=== PATIENT | female | born 1995 ===

== ENCOUNTER 2024-03-29 21:14 | Outpatient (REF) | payer BC, SELFPAY ==
[2024-04-05 13:11] LABS: Age Gdln ACOG Testing Note (.); IGP, rfx Aptima HPV ASCU Note (.)
== END 2024-03-29 21:15 | disposition home or self-care (01) ==
LOC: LAB 21:14
PROVIDERS: Visit Provider Obstetrics & Gynecology
DX: Z01.419 Encounter for gynecological examination (general) (routine) without abnormal findings (principal)
CPT/HCPCS: 88175

== ENCOUNTER 2025-04-18 19:33 | Outpatient (REF) | payer BC, SELFPAY ==
--- OUTSIDE RECORDS SUMMARY | 2025-04-18 19:38 | XMS_ITS | CCD ---
Author Organization [facility] Care Team Providers Care Vault Custodian Name Role Phone BRYCE SWARTZ Attending Unavailab le Unavailable Primary Care Provider UnavailFAUSTO Smith Attending Unavailab le EL DAVIS Attending Unavailable Unavailable Primary Care Provider UnavailBRYCE Lama Admitting Unavailable BRYCE CAMARILLO Attending Unavailable BRYCE CAMARILLO Referring Unavailable No, Physician Primary Care Provider Unavailabl e NO, PHYSICIAN Primary Care Unavailable SOMASUNDARAM, SHIVKAMINI Attending Unavail able SOMASUNDPETERM, SHIVKAMINI Admitting Unavail able NO, PHYSICIAN Primary Care Unavailable CARLOS ORELLANA Attending Unavailable SOMASUNDARAM, SHIVKAMINI Admitting Unavail able NO, PHYSICIAN Primary Care Unavailable VAISHALI TURNER II Attending Brenda vailable VAISHALI TURNER II Referring Brenda vailable NO, PHYSICIAN Primary Care Unavailable SOMASUNDARAM, SHIVKAMINI Attending Unavail able NO, PHYSICIAN Primary Care Unavailable SOMASUNDARAM, SHIVKAMINI Attending Unavail able NO, PHYSICIAN Primary Care Unavailable SOMASUNDARAM, SHIVKAMINI Attending Unavail able NO, PHYSICIAN Primary Care Unavailable SOMASUNDARAM, SHIVKAMINI Attending Unavail able NO, PHYSICIAN Primary Care Unavailable NO, PHYSICIAN Primary Care Unavailable AMY GUAMAN Attending Unavailable SOMASUNDARAM, SHIVKAMINI Attending Unavail able NO, PHYSICIAN Primary Care Unavailable ANASTASIA ADAME Attending Unavailable NO, PHYSICIAN Primary Care Unavailable MIRYAM GIRALDO Attending Unavailable NO, PHYSICIAN Primary Care Unavailable PORTIA GOLDEN Primary Care Physician [phone] NONE, XXXX Primary Care Physician Unavailab BEBETO Medina Primary Care Physician Unavailable Primary Care Provider Unavailmilton e Pepe Alegria Admitting Unavailable Pepe Alegria Attending Unavailable Pepe Alegria Attending Unavailable Pepe Alegria Attending Unavailable Pepe Alegria Attending Unavailable Pepe Alegria Admitting Unavailable Pao Macedo Attending Unavailable Pao Macedo Admitting Unavailable Pao Macedo Admitting Unavailable Pao Macedo Attending Unavailable Pao Macedo Referring Unavailable MIKY DELGADO Attending Unavailable PEPPER EAST Attending Unavailable MIKY DELGADO Attending Unavailable MIKY DELGADO Attending Unavailable MIKY DELGADO Attending Unavailable DO Jung Sandoval Attending Unavailable MAXI CARTY Attending Unav ailable MAXI CARTY Admitting Unav ailable Inés Be Attending Unavailable MAXI CARTY Attending Unav ailable Pao Macedo Attending Unavailable Fausto Rivera Attending UnavailJung Leonardo Attending Unavailable Lc Edmonds CNP Unavailable Bebeto Carty APRN Primary Care Provider Pao Macedo Attending Unavailable BEBETO CARTY Admitting Unavailmilton e BEBETO CARTY Attending UnavailBEBETO Stinson Referring Unavailabl e BEBETO CARTY Referring Unavailmilton e BEBETO CARTY Admitting Unavailabl e BEBETO CARTY Attending Unavailmilton e BEBETO CARTY Admitting Unavailabl e BEBETO CARTY Attending Unavailmilton e BEBETO CARTY Admitting Unavailmilton e BEBETO CARTY Attending UnavailAntony Herrera Attending Unavailable Pepe Alegria Attending Unavailable Pao Macedo Attending Unavailable BEBETO CARTY Attending Unavailabl e Pao Macedo Admitting Unavailable LuePao Attending Unavailable Pao Macedo MSamantha Referring Unavailable Kenn Tello Attending Unavailable PROVIDER, UNKNOWN Admitting Unavailable PROVIDER, UNKNOWN Attending Unavailable BEBETO CARTY Primary Care Unavailabl e Jung Sandoval Attending Unavailable Lue, Pao MSamantha Admitting Unavailable Lue, Poa M. Referring Unavailable Lue, Pao MSamantha Attending Unavailable LuePao MSamantha Attending Unavailable Lue Pao MSamantha Admitting Unavailable Lue, Poa M. Referring Unavailable Lue, Pao MSamantha Attending Unavailable Kenn Tello Attending Unavailable BEBETO CARTY Attending Unavailabl e Antony Singh Attending Unavailable Francisco, Antony Attending Unavailable Pepe Alegria Attending Unavailable Pao Macedo Attending Unavailable LC EDMONDS Attending Unavailable LC EDMONDS Admitting Unavailable LC EDMONDS Attending Unavailable BEBETO CARTY Attending Unavailabl e BEBETO CARTY Attending Unavailabl e BEBETO CARTY Attending Unavailabl e BEBETO CARTY Primary Care Unavailabl e [facility] Attending Unavailable [facility] Admitting Unavailable [facility] Admitting Unavailable BEBETO CARTY Primary Care Unavailabl e [facility], [facility] Attending Unavailable RUBENS PRINGLE Admitting Unavailable RUBENS PRINGLE Attending Unavailable BEBETO CARTY Primary Care Unavailabl e FAJARDO, STEVE Admitting Unavailable FAJARDO, STEVE Attending Unavailable BEBETO CARTY Primary Care Unavailabl e BEBETO CARTY Primary Care Unavailabl e [facility]ICK, [facility] Referring Unavailable BEBETO CARTY Primary Care Unavailabl e [facility], [facility] Referring Unavailable AMANDA ALVARADO Referring Unavailable BEBETO CARTY Primary Care Unavailabl e BEBETO CARTY Primary Care Unavailabl e [facility]ICK, [facility] Attending Unavailable MOISE DIAS Referring Unavailable BEBETO CARTY Primary Care Unavailabl e BEBETO CARTY Primary Care Unavailabl e [facility] CASTANON Attending Unavailable BEBETO CARTY Primary Care Unavailabl e BOLA COOLEY Attending Unavailable BEBETO CARTY Primary Care Unavailabl e BEBETO CARTY Primary Care Unavailabl e FOREIGN, [facility] Referring Unavailable BOLA COOLEY Attending Unavailable BEBETO CARTY Primary Care Unavailabl e BEBETO CARTY Primary Care Unavailabl e BEBETO CARTY Primary Care Unavailabl e Allergies Allergy Classification Reported Allergen(s) Allergy Type Date of Onset Reaction(s) Facility Latex (2 sources) Latex Substance Allergy 6 [facility], [facility] Penicillins (antibiotic) (2 sources) Penicillins Drug Allergy 6 Hives, Shortness Of Breath [facility] (20 sources) Latex; Translations: [LATEX] Propensity to adverse reactions to drug 6 Rash, Hives, Weal (disorder) [place], [place] (13 sources) Penicillins; Translations: [PENICILLINS] Propensity to adverse reactions to drug 6 Shortness Of Breath [place], [place] (9 sources) Penicillins Propensity to adverse reactions to drug 6 Hives, Shortness Of Breath [facility] (20 sources) Propolis; Translations: [PROPOLIS (BEE GLUE)] Drug Allergy 2 Itching [facility] Repository (20 sources) Penicillin; Translations: [penicillin] Drug Allergy Weal (disorder) [facility] [place] (1 source) Penicillins Propensity to adverse reactions to drug 6 Hives, Shortness Of Breath [facility] (13 sources) Latex Propensity to adverse reactions 0 Itching, Hives, Rash [facility] Healthcare Work Phone: (13 sources) Penicillins Drug Intolerance 0 Anaphylaxis, Hives, Itching, Rash, Shortness of breath, Swelling [facility] (9 sources) Propolis Drug Allergy 2 Itching [facility] (13 sources) Wound Dressing Adhesive Propensity to adverse reactions 4 Itching [facility] (20 sources) Penicillins Drug Intolerance 5 Hives [facility] (1 source) Adhesive agent; Translations: [ADHESIVE] Propensity to adverse reactions to drug (disorder) 5 [facility] Repository (1 source) Chlorhexidine; Translations: [CHLORHEXIDINE] Drug Allergy 5 [facility] Repository (1 source) Vancomycin; Translations: [VANCOMYCIN] Drug Allergy 5 [facility] Repository Medications Current Medications Medication Drug Class(es) Dates Sig (Normalized) Sig (Original) acetaminophen 325 mg / HYDROcodone bitartrate 5 mg oral tablet (6 sources) Opioid Agonist Start: 09-05-2024 [place] 325 mg-5 mg oral tablet 1 tab(s), Oral, q6hr for pain, 5 tab(s), Refill(s) 0, severe pain, [facility], 154, cm, 08/31/24 7:10:00 EST, Height/Length Dosing, 58, kg, 08/31/24 7:10:00 EST, Weight Dosing Start Date: 09/05/24 Status: Ordered Quantity: 5.0 Unit: tab(s) Repeat number: 1 Start: 07-24-2020 End: 07-24-2020 HYDROcodone-acetaminophen (N ORCO) 5-325 MG per tablet Start: 04-16-2019 End: 04-16-2019 HYDROcodone-acetaminophen (N ORCO) 5-325 MG per tablet 2 tablet acetaminophen 325 mg / oxyCODONE hydrochloride 5 mg oral tablet (9 sources) Opioid Agonist Start: 03-23-2025 Percocet 5 mg- 325 mg oral tablet 1 tab(s), Oral, BID, 60 tab(s), Refill(s) 0, [facility], 165, cm, 03/23/25 14:01:00 EDT, Height/Length Dosing, 54.8, kg, 03/23/25 14:01:00 EDT, Weight Dosing Start Date: 03/23/25 Status: Ordered Quantity: 60.0 Unit: tab(s) Repeat number: 1 Indications: Neuromuscular dysfunction of bladder, unspecified; Start: 02-21-2025 Percocet 5 mg- 325 mg oral tablet 1 tab(s), Oral, BID, 60 tab(s), Refill(s) 0, [facility], 165, cm, 01/31/25 11:07:00 EDT, Height/Length Dosing, 53.8, kg, 01/31/25 11:07:00 EDT, Weight Dosing Start Date: 02/21/25 Status: Ordered Quantity: 60.0 Unit: tab(s) Repeat number: 1 Indications: Neuromuscular dysfunction of bladder, unspecified; Start: 01-31-2025 Percocet 5 mg- 325 mg oral tablet 1 tab(s), Oral, q6hr, 40 tab(s), Refill(s) 0, [facility], 165, cm, 01/31/25 11:07:00 EDT, Height/Length Dosing, 53.8, kg, 01/31/25 11:07:00 EDT, Weight Dosing Start Date: 01/31/25 Status: Ordered Quantity: 40.0 Unit: tab(s) Repeat number: 1 Indications: Neuromuscular dysfunction of bladder, unspecified; Start: 12-26-2024 Percocet 5 mg- 325 mg oral tablet 1 tab(s), Oral, q6hr, 40 tab(s), Refill(s) 0, [facility], 165, cm, 12/26/24 11:23:00 EDT, Height/Length Dosing, 51.6, kg, 12/26/24 11:23:00 EDT, Weight Dosing Start Date: 12/26/24 Status: Ordered Quantity: 40.0 Unit: tab(s) Repeat number: 1 Indications: Neuromuscular dysfunction of bladder, unspecified; Start: 09-22-2024 End: 11-02-2024 take 1 tablet by mouth three times daily oxyCODONE-acetaminophen (PERCOCET) 5-325 mg tablet Take 1 tablet by mouth three times a day. 09/22/2024 11/02/2024 Discontinued (Discontinued by Patient) Start: 05-13-2021 End: 06-03-2021 take 1 tablet by mouth every six hours as needed for pain oxyCODONE-acetaminophen (PERCOCET) 5-325 mg per tablet Indications: Pelvic pain in female Take 1 (one) tablet by mouth every 6 (six) hours as needed for post-op pain. . 20 tablet 0 05/13/2021 06/03/2021 Discontinued (Therapy completed) amitriptyline hydrochloride 25 mg oral tablet (20 sources) Tricyclic Antidepressant Start: 07-27-2024 take 1 tablet by mouth once daily amitriptyline 25 mg Tab 25 mg = 1 tab(s), Oral, Daily, # 90 tab(s), Refills(s) 3, Pharmacy: [facility], 158, cm, 07/27/24 15:15:00 EST, Height/Length Dosing, 56.2, kg, 07/27/24 15:15:00 EST, Weight Dosing Start Date: 07/27/24 Status: Ordered Quantity: 90.0 Unit: tab(s) Repeat number: 4 Start: 05-19-2024 take 1 tablet by jona th three times daily amitriptyline 10 mg Tab 10 mg = 1 tab(s), Oral, TID, # 90 tab(s), Refills(s) 1, Pharmacy: [facility] #[facility], 158, cm, 05/19/24 10:00:00 EST, Height/Length Dosing, 56.1, kg, 05/19/24 10:05:00 EST, Weight Dosing Start Date: 05/19/24 Status: Ordered Start: 03-05-2022 End: 11-02-2024 amitriptyline 25 mg Tab Refi lls(s) 0 Start Date: 10/26/22 Status: Ordered Start: 11-20-2021 take 1 tablet by jona th once daily at bedtime amitriptyline 10 mg Tab 10 mg = 1 tab(s), Oral, Once a day (at bedtime), # 30 tab(s), Refills(s) 11, Pharmacy: [facility]/pharmacy #[id number], 158, cm, 11/18/21 15:54:00 EDT, Height/Length Dosing, 55.3, kg, 11/18/21 15:54:00 EDT, Weight Dosing Start Date: 11/20/21 Status: Ordered Start: 04-04-2021 End: 08-02-2021 take 1 tablet by mouth once daily at bedtime amitriptyline 10 mg Tab 10 mg = 1 tab(s), Oral, Once a day (at bedtime), # 30 tab(s), Refills(s) 11, Pharmacy: [facility]/pharmacy #[id number], 158, cm, 11/18/21 15:54:00 EDT, Height/Length Dosing, 55.3, kg, 11/18/21 15:54:00 EDT, Weight Dosing Start Date: 11/20/21 Status: Ordered azithromycin 500 mg oral tablet (16 sources) Macrolide Antimicrobial Start: 06-06-2024 End: 06-11-2024 take 1 tablet by mouth once daily Zithromax 500 mg oral tablet 500 mg = 1 tab(s), Oral, Daily, X 5 day(s), # 5 tab(s), Refills(s) 0, Pharmacy: [facility] #[facility], 158, cm, 06/06/24 18:17:00 EST, Height/Length Dosing, 56.1, kg, 06/06/24 18:17:00 EST, Weight Dosing Start Date: 06/06/24 Stop Date: 06/11/24 Status: Ordered Start: 2024 End: 03-29-2024 take 1 tablet by mouth once daily azithromycin (Zithromax) 500 MG tablet Indications: Vaginal discharge , Bacterial infection due to mycoplasma Day 1: Take 2 tablets PO onetime dose; Day 2,3,4: Take 1 tablet daily 5 tablet 03/08/2024 03/29/2024 Discontinued (Other) Start: 08-23-2023 azithromycin 2 50 mg Tab 250 mg, Oral, As Directed, # 10 tab(s), Refills(s) 0, Pharmacy: [facility] #[facility], 152, cm, 08/23/23 16:27:00 EST, Height/Length Dosing, 54, kg, 08/23/23 16:27:00 EST, Weight Dosing Start Date: 08/23/23 Status: Ordered Start: 08-12-2023 End: 08-17-2023 Zithromax Z-Douglas 250 mg oral tablet = 1 packet(s), Oral, As Directed, as directed on package labeling, X 5 day(s), # 6 tab(s), Refills(s) 0, Pharmacy: [facility] #[facility], 152, cm, 08/12/23 17:35:00 EST, Height/Length Dosing, 53.4, kg, 08/12/23 17:35:00 EST, Weight Dosing Start Date: 08/12/23 Stop Date: 08/17/23 Status: Ordered End: 04-07-2019 take 1 tablet by mouth once daily azithromycin (ZITHROMAX) 250 MG tablet Take 250 mg by mouth daily 0 04/07/2019 Discontinued (LIST CLEANUP) bacitracin zinc 0.5 unt/mg topical ointment (1 source) Start: 01-26-2025 End: 01-31-2025 bacitracin zinc 500 unit/gram ointment Apply to affected area two times a day for 5 days. 28.4 g 01/26/2025 01/31/2025 Active baclofen suppository 10 mg (CPD) (16 sources) Start: 11-07-2024 End: 01-06-2025 baclofen suppository 10 mg (CPD) Indications: High-tone pelvic floor dysfunction in female Use 1 suppository vaginally two times a day as needed. Unwrap and insert one suppository as directed. 30 suppository 3 11/07/2024 01/06/2025 Active benzonatate 100 mg oral capsule (2 sources) Non-narcotic Antitussive Start: 06-06-2024 End: 06-13-2024 take 1 capsule by mouth three times daily Tessalon 100 mg Cap 100 mg = 1 cap(s), Oral, TID, X 7 day(s), # 21 cap(s), Refills(s) 0, Pharmacy: [facility] #[facility], 158, cm, 06/06/24 18:17:00 EST, Height/Length Dosing, 56.1, kg, 06/06/24 18:17:00 EST, Weight Dosing Start Date: 06/06/24 Stop Date: 06/13/24 Status: Ordered brompheniramine maleate 0.4 mg/ml / dextromethorphan hydrobromide 2 mg/ml / pseudoephedrine hydrochloride 6 mg/ml oral solution (1 source) alpha-Adrenergic Agonist, Uncompetitive I-eagxab-N-aspartat e Receptor Antagonist, Sigma-1 Agonist Start: 03-17-2024 End: 03-22-2024 take 5 mL by mouth every six hours brompheniramine/ dextromethorphan /PSE 2 mg-10 mg-30 mg/5 mL oral syrup 5 mL, Oral, q6hr for cold symptoms for 5 day(s), 100 mL, Refill(s) 0, [facility], 55.5, cm, 03/17/24 17:21:00 EDT, Height/Length Dosing, 158, kg, 03/17/24 17:21:00 EDT, Weight Dosing Start Date: 03/17/24 Stop Date: 03/22/24 Status: Ordered Brompheniramine / Pseudoephedrine (2 sources) alpha-Adrenergic Agonist Start: 09-19-2021 take 10 mL by mouth four times daily Bromfed DM oral syrup 10 mL, Oral, QID for cold symptoms, 200 mL, Refill(s) 0, [facility]/pharmacy #[id number], 158, cm, 09/19/21 14:40:00 EDT, Height/Length Dosing, 51.9, kg, 09/19/21 14:40:00 EDT, Weight Dosing Start Date: 09/19/21 Status: Ordered calcium chloride 0.0014 meq/ml / potassium chloride 0.004 meq/ml / sodium chloride 0.103 meq/ml / sodium lactate 0.028 meq/ml injectable solution (1 source) Start: 07-24-2020 lactated ringers infusion cephalexin 500 mg oral capsule (3 sources) Cephalosporin Antibacterial Start: 12-29-2024 End: 01-03-2025 take 1 capsule by mouth twice daily cephALEXin (KEFLEX) 500 mg capsule Take 1 capsule by mouth two times a day for 5 days. 10 capsule 12/29/2024 01/03/2025 Active Start: 04-07-2019 End: 04-14-2019 take 1 capsule by mouth twice daily cephALEXin (KEFLEX) 500 MG capsule Take 1 capsule by mouth 2 times daily for 7 days 14 capsule 0 04/07/2019 04/14/2019 Active cimetidine 300 mg oral tablet (17 sources) Histamine-2 Receptor Antagonist Start: 01-08-2022 take 1 tablet by mouth twice daily cimetidine 300 mg oral tablet 300 mg = 1 tab(s), Oral, BID, # 60 tab(s), Refills(s) 0, Pharmacy: [facility]/pharmacy #[id number], 157, cm, 01/08/22 15:33:00 EDT, Height/Length Dosing, 54.5, kg, 01/08/22 15:33:00 EDT, Weight Dosing Start Date: 01/08/22 Status: Ordered ciprofloxacin 500 mg oral tablet (14 sources) Quinolone Antimicrobial Start: 01-27-2025 take 1 tablet by mouth twice daily Cipro 500 mg Tab 500 mg = 1 tab(s), Oral, BID, # 14 tab(s), Refills(s) 0, Pharmacy: [facility] #[facility], 165, cm, 01/27/25 11:11:00 EDT, Height/Length Dosing, 51, kg, 01/27/25 11:11:00 EDT, Weight Dosing Start Date: 01/27/25 Status: Ordered Quantity: 14.0 Unit: tab(s) Repeat number: 1 Start: 12-03-2024 End: 01-11-2025 take 1 tablet by mouth every twelve hours ciprofloxacin HCl (CIPRO) 500 mg tablet Take 1 tablet by mouth every 12 hours. 12/03/2024 01/11/2025 Discontinued Start: 09-03-2023 End: 09-13-2023 take 1 tablet by mouth every twelve hours ciprofloxacin 500 mg Tab 500 mg = 1 tab(s), Oral, q12hr, X 10 day(s), # 20 tab(s), Refills(s) 0, Pharmacy: [facility] #[facility], 152, cm, 09/03/23 16:04:00 EST, Height/Length Dosing, 53.3, kg, 09/03/23 16:13:00 EST, Weight Dosing Start Date: 09/03/23 Stop Date: 09/13/23 Status: Ordered clindamycin 300 mg oral capsule (1 source) Lincosamide Antibacterial Start: 02-23-2024 take 1 capsule by mouth twice daily clindamycin 300 mg oral cap 300 mg = 1 cap(s), Oral, BID, # 20 cap(s), Refills(s) 0, Pharmacy: [facility] #[facility], 155, cm, 02/23/24 10:10:00 EDT, Height/Length Dosing, 55.7, kg, 02/23/24 10:10:00 EDT, Weight Dosing Start Date: 02/23/24 Status: Ordered diazePAM 10 mg oral tablet (7 sources) Benzodiazepine Start: 09-28-2022 Valium 10 mg Tab 10 mg = 1 tab(s), Oral, Once, PRN for anxiety, take one hour prior to procedure., # 1 tab(s), Refills(s) 0, Pharmacy: [facility], 157, cm, 09/28/22 15:05:00 EDT, Height/Length Dosing, 54.5, kg, 09/28/22 15:05:00 EDT, Weight Dosing Start Date: 09/28/22 Status: Ordered Start: 06-01-2022 End: 06-15-2022 Valium 5 mg Tab 5 mg = 1 tab (s), Vaginal, Daily, 1 vaginal suppository daily for 14 days, X 14 day(s), # 14 tab(s), Refills(s) 0, Pharmacy: [facility], 157, cm, 04/15/22 9:05:00 EDT, Height/Length Dosing, 54.5, kg, 04/15/22 9:05:00 EDT, Weight Dosing Start Date: 06/01/22 Stop Date: 06/15/22 Status: Ordered Start: 04-15-2022 End: 04-29-2022 Valium 5 mg Tab 5 mg = 1 tab (s), Vaginal, Daily, Insert vaginal suppository daily, X 14 day(s), # 14 tab(s), Refills(s) 0, Pharmacy: [facility]/pharmacy #[id number], 157, cm, 04/15/22 9:05:00 EDT, Height/Length Dosing, 54.5, kg, 04/15/22 9:05:00 EDT, Weight Dosing Start Date: 04/15/22 Stop Date: 04/29/22 Status: Ordered End: 11-07-2024 diazepam (VALIUM ORAL) Take by mouth. 11/07/2024 Discontinued diazepam (VALIUM ORAL) Take by mouth. Active dicyclomine hydrochloride 10 mg oral capsule (2 sources) Anticholinergic Start: 09-03-2023 take 1 capsule by mouth four times daily Bentyl 10 mg Cap 10 mg = 1 cap(s), Oral, QID, # 30 cap(s), Refills(s) 1, Pharmacy: [facility], 152, cm, 09/03/23 16:04:00 EST, Height/Length Dosing, 53.3, kg, 09/03/23 16:13:00 EST, Weight Dosing Start Date: 09/03/23 Status: Ordered 1 ml diphenhydrAMINE hydrochloride 50 mg/ml cartridge (1 source) Histamine-1 Receptor Antagonist Start: 07-24-2020 End: 07-24-2020 diphenhydrAMINE (BENADRYL) injection 12.5 mg doxycycline hyclate 100 mg oral capsule (4 sources) Tetracycline-class Drug Start: 03-08-2024 End: 03-15-2024 doxycycline (Vibramycin) 100 MG capsule Indications: Vaginal discharge , Bacterial infection due to mycoplasma Take 1 capsule (100 mg) by mouth in the morning and 1 capsule (100 mg) before bedtime. Do all this for 7 days. Take with at least 8 ounces (large glass) of water, do not lie down for 30 minutes after. 14 capsule 03/08/2024 03/15/2024 Active Start: 06-02-2022 End: 06-09-2022 take 1 capsule by mouth twice daily doxycycline hyclate 100 mg Cap 100 mg = 1 cap(s), Oral, BID, X 7 day(s), # 14 cap(s), Refills(s) 0, Pharmacy: [facility]/pharmacy #[id number], 157, cm, 06/02/22 11:00:00 EST, Height/Length Dosing, 54.5, kg, 06/02/22 11:00:00 EST, Weight Dosing Start Date: 06/02/22 Stop Date: 06/09/22 Status: Ordered DULoxetine 30 mg delayed release oral capsule (20 sources) Serotonin and Norepinephrine Reuptake Inhibitor Start: 12-07-2024 End: 12-07-2025 take 1 capsule by mouth twice daily duloxetine 30 mg oral delayed release capsule 30 mg = 1 cap(s), Oral, BID, # 60 cap(s), Refills(s) 0, Pharmacy: [facility], 165, cm, 12/26/24 11:23:00 EDT, Height/Length Dosing, 51.6, kg, 12/26/24 11:23:00 EDT, Weight Dosing Start Date: 12/26/24 Status: Ordered Quantity: 60.0 Unit: cap(s) Repeat number: 1 Indications: Neuromuscular dysfunction of bladder, unspecified; Start: 11-02-2024 End: 12-07-2024 DULoxetine (CYMBALTA) 30 mg capsule Take 30mg once daily for 7 days and increase to 30mg twice a day after 60 capsule 2 11/02/2024 12/07/2024 Discontinued 2 ml fentaNYL 0.05 mg/ml injection (1 source) Opioid Agonist Start: 07-24-2020 fentaNYL (SUBLIMAZE) injection 25 mcg fluconazole 150 mg oral tablet (20 sources) Azole Antifungal Start: 09-18-2024 take 1 tablet by mouth once fluconazole 150 mg Tab 150 mg = 1 tab(s), Oral, Once, # 1 tab(s), Refills(s) 0, Pharmacy: [facility], 154, cm, 09/18/24 14:12:00 EDT, Height/Length Dosing, 56, kg, 09/18/24 14:12:00 EDT, Weight Dosing Start Date: 09/18/24 Status: Ordered Quantity: 1.0 Unit: tab(s) Repeat number: 1 Indication: Acute candidiasis of vulva and vagina Start: 06-27-2024 End: 12-07-2024 DIFLUCAN 150 mg tablet Take 150 mg by mouth. 150 mg = 1 tab(s), Oral, q72hr, # 4 tab(s), Refills(s) 5, Pharmacy: [facility], 154, cm, 10/19/24 12:48:00 EDT, Height/Length Dosing, 56.1, kg, 10/19/24 12:48:00 EDT, Weight Dosing 06/27/2024 12/07/2024 Discontinued (Discontinued by Patient) Start: 06-27-2024 take 1 tablet by mouth once Di flucan 150 mg Tab See Instructions, 1 tab Oral Once If symptoms persist may repeat dose 72 hours after intial, # 2 tab(s), Refills(s) 0, Pharmacy: [facility], 158, cm, 06/27/24 10:04:00 EST, Height/Length Dosing, 56.2, kg, 06/27/24 10:03:00 EST, Weight Dosing Start Date: 06/27/24 Status: Ordered Start: 02-23-2024 Diflucan 150 m g Tab 150 mg = 1 tab(s), Oral, q7day, # 4 tab(s), Refills(s) 1, Pharmacy: [facility], 155, cm, 02/23/24 10:10:00 EDT, Height/Length Dosing, 55.7, kg, 02/23/24 10:10:00 EDT, Weight Dosing Start Date: 02/23/24 Status: Ordered Start: 11-04-2023 take 1 tablet by jona once daily Diflucan 150 mg Tab 150 mg = 1 tab(s), Oral, Daily, # 7 tab(s), Refills(s) 1, Pharmacy: [facility], 155, cm, 11/04/23 12:55:00 EDT, Height/Length Dosing, 55.4, kg, 11/04/23 12:55:00 EDT, Weight Dosing Start Date: 11/04/23 Status: Ordered fluticasone propionate 0.05 mg/actuat metered dose nasal spray (3 sources) Corticosteroid Start: 03-17-2024 End: 03-24-2024 take 1 spray(s) nasal route twice daily Flonase 0.05 mg/inh [place] 1 spray(s), Nasal, BID for 7 day(s), 16 gm, Refill(s) 0, each nostril, [facility], 55.5, cm, 03/17/24 17:21:00 EDT, Height/Length Dosing, 158, kg, 03/17/24 17:21:00 EDT, Weight Dosing Start Date: 03/17/24 Stop Date: 03/24/24 Status: Ordered Start: 09-19-2021 fluticasone to pical 0.05% cream 1 sharon, Topical, BID, 30 gram, Refill(s) 0, [id number], 158, cm, 09/19/21 14:40:00 EDT, Height/Length Dosing, 51.9, kg, 09/19/21 14:40:00 EDT, Weight Dosing Start Date: 09/19/21 Status: Ordered gabapentin 300 mg oral capsule (20 sources) Anti-epileptic Agent Start: 03-05-2022 End: 10-01-2022 take 1 capsule by mouth twice daily gabapentin 300 mg Cap 300 mg = 1 cap(s), Oral, BID, X 30 day(s), # 60 cap(s), Refills(s) 6, Pharmacy: [facility]/pharmacy #[id number], 157, cm, 03/05/22 15:21:00 EDT, Height/Length Dosing, 54.5, kg, 03/05/22 15:21:00 EDT, Weight Dosing Start Date: 03/05/22 Stop Date: 10/01/22 Status: Ordered Start: 08-25-2021 take 2 capsules by m outh once daily gabapentin 300 mg Cap 600 mg = 2 cap(s), Oral, Daily, # 60 cap(s), Refills(s) 0 Start Date: 08/25/21 Status: Ordered Start: 02-17-2021 End: 06-03-2021 take 1 capsule by mouth every eight hours as needed for pain gabapentin (NEURONTIN) 100 MG capsule Indications: Pelvic pain in female Take one capsule by mouth every 8 hours as needed for pelvic pain. . 90 capsule 1 02/17/2021 06/03/2021 Discontinued (Therapy completed) 1 ml hydrALAZINE hydrochloride 20 mg/ml injection (1 source) Arteriolar Vasodilator Start: 07-24-2020 hydrALAZINE (APRESOLINE) injection 5 mg 1 ml HYDROmorphone hydrochloride 1 mg/ml cartridge (1 source) Opioid Agonist Start: 07-24-2020 HYDROmorphone (DILAUDID) injection 0.5 mg hydrOXYzine hydrochloride 25 mg oral tablet (20 sources) Antihistamine Start: 11-20-2021 take 1 tablet by mouth three times daily hydrOXYzine hydrochloride 25 mg Tab 25 mg = 1 tab(s), Oral, TID, # 90 tab(s), Refills(s) 11, Pharmacy: [facility]/pharmacy #[id number], 158, cm, 11/18/21 15:54:00 EDT, Height/Length Dosing, 55.3, kg, 11/18/21 15:54:00 EDT, Weight Dosing Start Date: 11/20/21 Status: Ordered Start: 08-12-2021 End: 12-10-2021 take 1 capsule by mouth once daily hydrOXYzine (VISTARIL) 25 MG capsule Indications: Interstitial cystitis TAKE 1 (ONE) CAPSULE (25 MG TOTAL) BY MOUTH NIGHTLY . 30 capsule 3 08/12/2021 12/10/2021 Active Start: 04-12-2021 take 1 mg by mouth f our times daily hydrOXYzine hydrochloride 25 mg Tab mg tab(s), Oral, QID, Refills(s) 0 Start Date: 04/12/21 Status: Ordered Start: 04-04-2021 End: 08-02-2021 take 1 capsule by mouth once daily hydrOXYzine (VISTARIL) 25 MG capsule Indications: Interstitial cystitis Take 1 (one) capsule (25 mg total) by mouth nightly . 30 capsule 3 04/04/2021 08/02/2021 Active medical marijuana (6 sources) medical marijuan a Inhale into the lungs as needed. 0 Active meloxicam 7.5 mg oral tablet (3 sources) Nonsteroidal Anti-inflammatory Drug take 1 tablet by mouth once daily meloxicam (MOBIC) 7.5 MG tablet Take 7.5 mg by mouth daily 0 Active 1 ml meperidine hydrochloride 50 mg/ml injection (1 source) Opioid Agonist Start: 07-24-19 meperidine (DEMEROL) injection 12.5 mg metroNIDAZOLE 500 mg oral tablet (12 sources) Nitroimidazole Antimicrobial Start: 08-31-19 End: 09-08-19 take 500 mg by mouth every twelve hours metronidazole 500 mg, Oral, q12hr, Refills(s) 0, Infection or prophylaxis for antibiotics Start Date: 09/05/24 Status: Ordered Repeat number: 1 Start: 08-31-2024 End: 09-30-2024 metroNIDAZOLE (Metrogel) 0.7 5 % vaginal gel Indications: Bacterial vaginosis Insert into the vagina 2 (two) times a week For 6 months. 140 g 5 08/31/2024 09/30/2024 Active Start: 11-08-2023 take 1 tablet by jona th every twelve hours Flagyl 500 mg Tab 500 mg = 1 tab(s), Oral, q12hr, # 14 tab(s), Refills(s) 1, Pharmacy: [facility] #37, 155, cm, 11/08/23 11:20:00 EDT, Height/Length Dosing, 56.2, kg, 11/08/23 11:20:00 EDT, Weight Dosing Start Date: 11/08/23 Status: Ordered Start: 09-03-2023 End: 09-13-2023 take 1 tablet by mouth every eight hours MetroNIDAZOLE 500 mg Tab 500 mg = 1 tab(s), Oral, q8hr, X 10 day(s), # 30 tab(s), Refills(s) 0, Pharmacy: [facility] #37, 152, cm, 09/03/23 16:04:00 EST, Height/Length Dosing, 53.3, kg, 09/03/23 16:13:00 EST, Weight Dosing Start Date: 09/03/23 Stop Date: 09/13/23 Status: Ordered 24 hr mirabegron 50 mg extended release oral tablet (6 sources) beta3-Adrenergic Agonist Start: 09-17-2024 End: 11-02-2024 take 1 tablet by mouth once daily Myrbetriq 50 mg oral tablet, extended release 50 mg = 1 tab(s), Oral, Daily, # 30 tab(s), Refills(s) 0, Pharmacy: [facility] #37, 154, cm, 09/17/24 16:55:00 EDT, Height/Length Dosing, 56.5, kg, 09/17/24 16:55:00 EDT, Weight Dosing Start Date: 09/17/24 Status: Ordered Quantity: 30.0 Unit: tab(s) Repeat number: 1 Start: 03-05-2022 take 1 tablet by jona th once daily Myrbetriq 25 mg oral tablet, extended release 25 mg = 1 tab(s), Oral, Daily, # 30 tab(s), Refills(s) 6, Pharmacy: [facility]/pharmacy #[id number], 157, cm, 03/05/22 15:21:00 EDT, Height/Length Dosing, 54.5, kg, 03/05/22 15:21:00 EDT, Weight Dosing Start Date: 03/05/22 Status: Ordered Start: 01-08-2022 take 1 tablet by jona th once daily Myrbetriq 25 mg oral tablet, extended release 25 mg = 1 tab(s), Oral, Daily, # 30 tab(s), Refills(s) 5, Pharmacy: [facility]/pharmacy #[id number], 157, cm, 01/08/22 15:33:00 EDT, Height/Length Dosing, 54.5, kg, 01/08/22 15:33:00 EDT, Weight Dosing Start Date: 01/08/22 Status: Ordered 30 ml morphine sulfate 1 mg/ml injection (1 source) Opioid Agonist Start: 07-24-2020 morphine (PF) injection 1 mg moxifloxacin 400 mg oral tablet (3 sources) Quinolone Antimicrobial Start: 03-17-2024 End: 03-24-2024 take 1 tablet by mouth once daily moxifloxacin 400 mg Tab 400 mg = 1 tab(s), Oral, Daily, X 7 day(s), # 7 tab(s), Refills(s) 0 Start Date: 03/17/24 Stop Date: 03/24/24 Status: Ordered Start: 03-08-2024 End: 03-15-2024 take 1 tablet by mouth once daily moxifloxacin (Avelox) 400 MG tablet Indications: Bacterial infection due to mycoplasma Take 1 tablet (400 mg) by mouth Daily for 7 days start medication AFTER completing course of Doxycycline & Azithromycin. 7 tablet 03/08/2024 03/15/2024 Active naproxen 500 mg oral tablet (1 source) Nonsteroidal Anti-inflammatory Drug Start: 11-16-2024 take 1 tablet by mouth twice daily as needed for pain naproxen 500 mg Tab 500 mg = 1 tab(s), Oral, BID, PRN Pain, # 30 tab(s), Refills(s) 0, Pharmacy: [facility] #37, 165, cm, 11/16/24 14:56:00 EDT, Height/Length Dosing, 57.1, kg, 11/16/24 14:56:00 EDT, Weight Dosing Start Date: 11/16/24 Status: Ordered Quantity: 30.0 Unit: tab(s) Repeat number: 1 nitrofurantoin, macrocrystals 50 mg oral capsule (1 source) Nitrofuran Antibacterial Start: 01-26-2025 End: 01-31-2025 take 1 capsule by mouth four times daily nitrofurantoin macrocrystal (MACRODANTIN) 50 mg capsule Take 1 capsule by mouth four times daily for 5 days. 20 capsule 01/26/2025 01/31/2025 Active nitrofurantoin, macrocrystals 25 mg / nitrofurantoin, monohydrate 75 mg oral capsule (16 sources) Nitrofuran Antibacterial Start: 12-21-2024 End: 12-28-2024 take 1 capsule by mouth twice daily nitrofurantoin monohydrate and macrocrystal (MACROBID) 100 mg capsule Take 1 capsule by mouth two times a day for 7 days. FOR 7 DAYS. 14 capsule 12/21/2024 12/28/2024 Active Start: 10-20-2024 End: 12-07-2024 take 1 capsule by mouth every twelve hours nitrofurantoin monohydrate and macrocrystal (MACROBID) 100 mg capsule Take 1 capsule by mouth every 12 hours. 11/02/2024 12/07/2024 Discontinued (Discontinued by Patient) Start: 10-19-2024 End: 10-27-2024 take 1 capsule by mouth twice daily Macrobid 100 mg Cap 100 mg = 1 cap(s), Oral, BID, X 7 day(s), # 14 cap(s), Refills(s) 0, Pharmacy: [facility] #37, 154, cm, 10/19/24 12:48:00 EDT, Height/Length Dosing, 56.1, kg, 10/19/24 12:48:00 EDT, Weight Dosing Start Date: 10/20/24 Stop Date: 10/27/24 Status: Ordered Quantity: 14.0 Unit: cap(s) Repeat number: 1 Indication: Urinary tract infection, site not specified Start: 04-05-2019 End: 04-10-2019 take 1 capsule by mouth twice daily nitrofurantoin, macrocrystal-monohydrate, (MACROBID) 100 MG capsule Take 1 capsule by mouth 2 times daily for 5 days 10 capsule 0 04/05/2019 04/07/2019 Discontinued (Therapy completed) Non-Formulary Medication (5 sources) Start: 08-30-2024 Non-Formulary Medication See Instructions Start Date: 08/30/24 Status: Ordered Repeat number: 1 Start: 08-30-2024 Non-Formulary Medication See Instructions Start Date: 08/30/24 Status: Ordered ondansetron 4 mg disintegrating oral tablet (8 sources) Serotonin-3 Receptor Antagonist Start: 07-24-2020 take 1 tablet by mouth every eight hours as needed for nausea ondansetron (ZOFRAN ODT) 4 MG disintegrating tablet Take 1 tablet by mouth every 8 hours as needed for Nausea or Vomiting 15 tablet 0 07/24/2020 Active Start: 07-24-2020 End: 07-24-2020 ondansetron (ZOFRAN) 4 MG/2M L injection Start: 07-24-2020 End: 07-24-2020 ondansetron (ZOFRAN) injecti on 4 mg Start: 04-07-2019 End: 07-18-2020 take 1 tablet by mouth every eight hours as needed for nausea ondansetron (ZOFRAN ODT) 4 MG disintegrating tablet Take 1 tablet by mouth every 8 hours as needed for Nausea or Vomiting 12 tablet 0 04/07/2019 07/18/2020 Discontinued (LIST CLEANUP) Start: 04-07-2019 End: 04-07-2019 ondansetron (ZOFRAN) injecti on 4 mg Start: 04-05-2019 End: 04-05-2019 ondansetron (ZOFRAN) injecti on 4 mg oxybutynin chloride 5 mg oral tablet (3 sources) Cholinergic Muscarinic Antagonist Start: 01-31-2025 take 1 tablet by mouth four times daily as needed oxybutynin 5 mg Tab 5 mg = 1 tab(s), Oral, QID, PRN for urinary discomfort, # 120 tab(s), Refills(s) 4, Pharmacy: [facility] #37, 165, cm, 01/31/25 11:07:00 EDT, Height/Length Dosing, 53.8, kg, 01/31/25 11:07:00 EDT, Weight Dosing Start Date: 01/31/25 Status: Ordered Quantity: 120.0 Unit: tab(s) Repeat number: 5 Indications: Other symptoms and signs involving the genitourinary system; pantoprazole 40 mg delayed release oral tablet (20 sources) Proton Pump Inhibitor Start: 10-09-2022 take 1 tablet by mouth once daily Pantoprazole [address] Tab 40 mg = 1 tab(s), Oral, Daily, # 90 tab(s), Refills(s) 1, Pharmacy: [facility] #37, 157, cm, 10/06/22 9:09:00 EDT, Height/Length Dosing, 54.5, kg, 09/28/22 15:05:00 EDT, Weight Dosing Start Date: 10/09/22 Status: Ordered Start: 03-24-2022 take 2 tablets by [facility] once daily Pantoprazole [address] Tab 40 mg = 2 tab(s), Oral, Daily, call office to make appointment, # 60 tab(s), Refills(s) 0, Pharmacy: [facility]/pharmacy #[id number], 157, cm, 06/15/22 13:18:00 EST, Height/Length Dosing, 54.5, kg, 06/15/22 13:18:00 EST, Weight Dosing Start Date: 09/21/22 Status: Ordered Start: 02-25-2022 take 2 tablets by [facility] once daily pantoprazole 20 mg Oral EC Tab 40 mg = 2 tab(s), Oral, Daily, # 60 tab(s), Refills(s) 0, Pharmacy: [facility]/pharmacy #[id number], 157, cm, 01/09/22 15:54:00 EDT, Height/Length Dosing, 54.5, kg, 01/09/22 15:54:00 EDT, Weight Dosing Start Date: 02/25/22 Status: Ordered Start: 01-09-2022 take 2 tablets by [facility] once daily pantoprazole 20 mg Oral EC Tab 40 mg = 2 tab(s), Oral, Daily, # 60 tab(s), Refills(s) 0, Pharmacy: [facility]/pharmacy #[id number], 157, cm, 01/09/22 15:54:00 EDT, Height/Length Dosing, 54.5, kg, 01/09/22 15:54:00 EDT, Weight Dosing Start Date: 01/09/22 Status: Ordered polyethylene glycol 3350 05919 mg powder for oral solution (4 sources) Osmotic Laxative Start: 11-16-2024 take 17 g by mouth once daily as needed for constipation Miralax 3350 17 gram packet 17 gm, Oral, Daily, PRN Constipation, # 30 EA, Refills(s) 0, Pharmacy: [facility] #37, 165, cm, 11/16/24 14:56:00 EDT, Height/Length Dosing, 57.1, kg, 11/16/24 14:56:00 EDT, Weight Dosing Start Date: 11/16/24 Status: Ordered Quantity: 30.0 Unit: EA Repeat number: 1 promethazine hydrochloride 25 mg oral tablet (3 sources) Phenothiazine Start: 09-03-2023 take 1 tablet by mouth three times daily promethazine 25 mg Tab 25 mg = 1 tab(s), Oral, TID, # 30 tab(s), Refills(s) 1, Pharmacy: [facility] #37, 152, cm, 09/03/23 16:04:00 EST, Height/Length Dosing, 53.3, kg, 09/03/23 16:13:00 EST, Weight Dosing Start Date: 09/03/23 Status: Ordered Start: 07-24-2020 End: 07-24-2020 promethazine (PHENERGAN) inj ection 6.25 mg 1000 ml sodium chloride 9 mg /ml injection (6 sources) Start: 07-24-2020 0.9 % sodium c hloride infusion Start: 07-24-2020 sodium chlorid e flush 0.9 % injection 10 mL Start: 04-07-2019 End: 04-07-2019 0.9 % sodium chloride bolus Start: 04-05-2019 End: 04-05-2019 0.9 % NaCl bolus solifenacin succinate 5 mg oral tablet (9 sources) Cholinergic Muscarinic Antagonist Start: 06-15-2022 take 1 tablet by mouth twice daily Vesicare 5 mg Tab 5 mg = 1 tab(s), Oral, BID, # 60 tab(s), Refills(s) 11, Pharmacy: [facility]/pharmacy #[id number], 157, cm, 06/15/22 13:18:00 EST, Height/Length Dosing, 54.5, kg, 06/15/22 13:18:00 EST, Weight Dosing Start Date: 06/15/22 Status: Ordered Start: 04-15-2022 take 1 tablet by jona th once daily Vesicare 5 mg Tab 5 mg = 1 tab(s), Oral, Daily, # 30 tab(s), Refills(s) 6, Pharmacy: [facility]/pharmacy #[id number], 157, cm, 04/15/22 9:05:00 EDT, Height/Length Dosing, 54.5, kg, 04/15/22 9:05:00 EDT, Weight Dosing Start Date: 04/15/22 Status: Ordered terconazole 4 mg/ml vaginal cream (3 sources) Azole Antifungal Start: 11-08-2023 End: 11-22-2023 terconazole 0.4% Vag Crm 1 sharon, Vaginal, Once a day (at bedtime) for 7 day(s), 45 gram, Refill(s) 1, [facility] #37, 155, cm, 11/08/23 11:20:00 EDT, Height/Length Dosing, 56.2, kg, 11/08/23 11:20:00 EDT, Weight Dosing Start Date: 11/08/23 Stop Date: 11/22/23 Status: Ordered tiZANidine 4 mg oral tablet (14 sources) Central alpha-2 Adrenergic Agonist Start: 10-14-2021 End: 01-13-2022 take 1 tablet by mouth three times daily as needed tiZANidine (ZANAFLEX) 4 MG tablet Indications: Pelvic pain in female TAKE 1 TABLET BY MOUTH THREE TIMES A DAY NEEDED 90 tablet 1 01/13/2022 Active Start: 02-17-2021 End: 03-13-2021 take 1 tablet by mouth three times daily as needed tiZANidine (ZANAFLEX) 4 MG tablet Indications: Pelvic pain in female TAKE 1 TABLET BY MOUTH THREE TIMES A DAY NEEDED 90 tablet 1 03/13/2021 Active 24 hr tolterodine tartrate 4 mg extended release oral capsule (14 sources) Cholinergic Muscarinic Antagonist Start: 12-26-2024 take 1 capsule by mouth once daily tolterodine 4 mg Cap-ER 4 mg = 1 cap(s), Oral, Daily, # 30 cap(s), Refills(s) 0, Pharmacy: [facility] #37, 165, cm, 12/26/24 11:23:00 EDT, Height/Length Dosing, 51.6, kg, 12/26/24 11:23:00 EDT, Weight Dosing Start Date: 12/26/24 Status: Ordered Quantity: 30.0 Unit: cap(s) Repeat number: 1 Indications: Neuromuscular dysfunction of bladder, unspecified; Start: 07-27-2024 take 1 capsule by mo [facility] every twenty-four hours tolterodine LA (Detrol LA) 2 MG 24 hr capsule Take 2 mg by mouth 07/27/2024 Active Start: 10-26-2022 End: 11-02-2024 take 1 capsule by mouth once daily tolterodine 2 mg Ca p-ER 2 mg = 1 cap(s), Oral, Daily, # 90 cap(s), Refills(s) 3, Pharmacy: [facility] #37, 158, cm, 07/27/24 15:15:00 EST, Height/Length Dosing, 56.2, kg, 07/27/24 15:15:00 EST, Weight Dosing Start Date: 07/27/24 Status: Ordered 24 hr trospium chloride 60 mg extended release oral capsule (1 source) Cholinergic Muscarinic Antagonist Start: 11-15-2020 take 1 capsule by mouth once daily in the morning trospium 60 mg oral capsule, extended release 60 mg = 1 cap(s), Oral, qAM, # 30 cap(s), Refills(s) 0 Start Date: 11/15/20 Status: Ordered UNABLE TO FIND (12 sources) UNABLE TO FIND Medical Marijuana Card . 0 Active Zofran ODT 4 mg Tab-Dis (2 sources) Start: 11-16-2024 take 1 tablet by mouth every eight hours as needed for nausea Zofran ODT 4 mg Tab-Dis 4 mg = 1 tab(s), Oral, q8hr, PRN Nausea/Vomiting, # 12 tab(s), Refills(s) 0, Pharmacy: [facility] #37, 165, cm, 11/16/24 14:56:00 EDT, Height/Length Dosing, 57.1, kg, 11/16/24 14:56:00 EDT, Weight Dosing Start Date: 11/16/24 Status: Ordered Quantity: 12.0 Unit: tab(s) Repeat number: 1 Start: 04-13-2023 take 1 tablet by [facility] every eight hours Zofran ODT 4 mg Tab-Dis 4 mg = 1 tab(s), Oral, q8hr, # 12 tab(s), Refills(s) 0, Pharmacy: [facility] #37, 154.9, cm, 04/13/23 20:11:00 EDT, Height/Length Dosing, 50.9, kg, 04/13/23 20:11:00 EDT, Weight Dosing Start Date: 04/13/23 Status: Ordered Completed/Discontinued Medications Medication Drug Class(es) Dates Sig (Normalized) Sig (Original) baclofen 10 mg oral tablet (3 sources) gamma-Aminobutyri c Acid-ergic Agonist Start: 04-29-2024 End: 11-07-2024 take 1 tablet by mouth three times daily baclofen 10 mg tablet Take 10 mg by mouth three times a day. 04/29/2024 11/07/2024 Discontinued Start: 04-15-2022 End: 04-29-2022 take 1 tablet by mouth once daily baclofen 10 mg Tab 10 mg = 1 tab(s), Oral, Daily, X 14 day(s), # 14 tab(s), Refills(s) 0, Pharmacy: [facility]/pharmacy #[id number], 157, cm, 04/15/22 9:05:00 EDT, Height/Length Dosing, 54.5, kg, 04/15/22 9:05:00 EDT, Weight Dosing Start Date: 04/15/22 Stop Date: 04/29/22 Status: Ordered baclofen 10 mg diazePAM 10 m g lidocaine 2% vaginal suppository (CPD) (2 sources) End: 11-07-2024 baclofen 10 mg diazePAM 10 m g lidocaine 2% vaginal suppository (CPD) Use 1 suppository vaginally daily at bedtime. 11/07/2024 Discontinued baclofen 10 mg d iazePAM 10 mg lidocaine 2% vaginal suppository (CPD) Use 1 suppository vaginally daily at bedtime. Active cefTRIAXone (ROCEPHIN) 1 g in sterile water 10 mL IV syringe (1 source) Start: 04-07-2019 End: 04-07-2019 cefTRIAXone (ROCEPHIN) 1 g in sterile water 10 mL IV syringe escitalopram 10 mg oral tablet (5 sources) Serotonin Reuptake Inhibitor End: 07-24-2020 take 1 tablet by mouth once daily escitalopram (LEXAPRO) 10 MG tablet Take 10 mg by mouth daily 0 07/24/2020 Discontinued (LIST CLEANUP) Ethinyl Estradiol / Ferrous fumarate / Norethindrone (2 sources) Estrogen End: 04-07-2019 take 1 tablet by mouth once daily Norethin-Eth Estradiol-Fe 0.8-25 MG-MCG CHEW Take 1 tablet by mouth daily 0 04/07/2019 Discontinued (LIST CLEANUP) take 1 tablet by mouth once oz y Norethin-Eth Estradiol-Fe 0.8-25 MG-MCG CHEW Take 1 tablet by mouth daily 0 Active ibuprofen 800 mg oral tablet (5 sources) Nonsteroidal Anti-inflammatory Drug Start: 05-13-2021 End: 05-13-2022 take 1 tablet by mouth every eight hours as needed for pain ibuprofen (ADVIL,MOTRIN) 800 MG tablet Indications: Pelvic pain in female Take 1 (one) tablet (800 mg total) by mouth every 8 (eight) hours as needed for pain . 30 tablet 1 05/13/2021 06/03/2021 Discontinued (Therapy completed) Start: 04-22-2016 End: 04-07-2019 take 1 tablet by mouth every eight hours as needed for pain ibuprofen (ADVIL;MOTRIN) 800 MG tablet Take 1 tablet by mouth every 8 hours as needed for Pain 90 tablet 3 04/22/2016 04/07/2019 Discontinued (LIST CLEANUP) 1 ml ketorolac tromethamine 30 mg/ml cartridge (1 source) Nonsteroidal Anti-inflammatory Drug, Cyclooxygenase Inhibitor Start: 04-07-2019 End: 04-07-2019 ketorolac (TORADOL) injection 30 mg phenazopyridine hydrochloride 100 mg oral tablet (3 sources) Start: 04-05-2019 End: 04-05-2019 phenazopyridine (PYRIDIUM) tablet 200 mg Start: 04-05-2019 End: 04-08-2019 take 1 tablet by mouth three times daily as needed for pain phenazopyridine (PYRIDIUM) 200 MG tablet Take 1 tablet by mouth 3 times daily as needed for Pain (bladder spasm/pain) 6 tablet 0 04/05/2019 04/08/2019 Active predniSONE 10 mg oral tablet (15 sources) Start: 12-05-2024 End: 01-11-2025 predniSONE (DELTASONE) 10 mg tablet TAKE 4 TABLETS BY MOUTH DAILY FOR 3 DAYS, then 3 TABLETS FOR 3 DAYS, then 2 TABLETS FOR 3 DAYS, then ONE TABLET FOR 3 DAYS 12/05/2024 01/11/2025 Discontinued Start: 06-06-2024 End: 06-11-2024 take 2 tablets by mouth once daily predniSONE 20 mg Tab 40 mg = 2 tab(s), Oral, Daily, X 5 day(s), # 10 tab(s), Refills(s) 0, Pharmacy: [facility] #37, 158, cm, 06/06/24 18:17:00 EST, Height/Length Dosing, 56.1, kg, 06/06/24 18:17:00 EST, Weight Dosing Start Date: 06/06/24 Stop Date: 06/11/24 Status: Ordered Start: 09-13-2023 predniSONE 10 mg Tab 0 = 1 -, Oral, As Directed, Take 4 tabs by mouth daily x5 days, then 3 daily x5 days, then 2 daily x5 days, then 1 daily x5 days, # 50 tab(s), Refills(s) 0, Pharmacy: [facility] #37, 152, cm, 09/03/23 16:04:00 EST, Height/Length Dosing, 53.3, kg, 09/03/23 16:13:00 EST, Weight Dosing Start Date: 09/13/23 Status: Ordered Problems Active Problems Problem Classification Problem Date Documented Da te Episodic/Chronic Anxiety disorders (12 sources) Posttraumatic stress disorder; Translations: [Post-traumatic stress disorder, unspecified] Onset: 05-23-2019 02-16-2021 Chronic Complication of device; implant or graft (1 source) Complication associated with genitourinary device; Translations: [Unspecified complication of genitourinary prosthetic device, implant and graft, initial encounter] Onset: 09-17-2024 Episodic Disorders of lipid metabolism (13 sources) Mixed hyperlipidemia; Translations: [Mixed hyperlipidemia] Onset: 06-24-2017 02-16-2021 Chronic Endometriosis (20 sources) Endometriosis (clinical); Translations: [Endometriosis, unspecified] Onset: 02-12-2021 Chronic Epilepsy; convulsions (20 sources) Seizure 12-17-2020 Episodic Gastrointestinal hemorrhage (20 sources) Hemorrhage of rectum and anus; Translations: [Hemorrhage of anus and rectum] Onset: 01-09-2022 Episodic Genitourinary symptoms and ill-defined conditions (5 sources) Incontinence; Translations: [Suprapubic urinary catheter in situ] Onset: 07-10-2025 08-10-2022 Chronic Genitourinary symptoms and ill-defined conditions (20 sources) Bladder pain; Translations: [Increased frequency of urination] Onset: 07-23-2020 07-23-2020 Episodic Headache; including migraine (20 sources) Migraine; Translations: [Migraine, unspecified, not intractable, without status migrainosus] Onset: 06-25-2017 02-16-2021 Chronic Immunizations and screening for infectious disease (2 sources) Exposure to sexually transmissible disorder; Translations: [Contact with and (suspected) exposure to infections with a predominantly sexual mode of transmission] 03-29-2024 Episodic Inflammatory diseases of female pelvic organs (20 sources) Acute vaginitis; Translations: [Acute vaginitis] Onset: 11-08-2023 Episodic Mood disorders (12 sources) Severe recurrent major depression without psychotic features; Translations: [Major depressive disorder, recurrent severe without psychotic features] Onset: 05-23-2019 02-16-2021 Chronic Mycoses (20 sources) Candidal vulvovaginitis; Translations: [Acute candidiasis of vulva and vagina] Onset: 11-04-2023 Episodic Nausea and vomiting (20 sources) Nausea and vomiting; Translations: [Vomiting] Onset: 09-03-2023 Episodic Other aftercare (1 source) Surgical follow-up; Translations: [Encounter for follow-up examination after completed treatment for conditions other than malignant neoplasm] Episodic Other connective tissue disease (7 sources) Disorder of muscle; Translations: [Other specified disorders of muscle] Onset: 11-20-2021 Episodic Other connective tissue disease (20 sources) Pelvic floor dysfunction 11-20-2021 Episodic Other connective tissue disease (5 sources) Muscle pain; Translations: [Myalgia, other site] Onset: 04-15-2022 Episodic Other connective tissue disease (20 sources) Myofascial pain 04-15-2022 Episodic Other connective tissue disease (11 sources) Neuralgia 09-22-2024 Episodic Other connective tissue disease (2 sources) Neuropathic pain; Translations: [Neuralgia and neuritis, unspecified] 11-02-2024 Episodic Other connective tissue disease (1 source) Female pelvic floor dysfunction; Translations: [Other specified disorders of muscle] 11-07-2024 Episodic Other connective tissue disease (1 source) Neuralgia and neuritis, unspecified; Translations: [Nerve pain] Onset: 03-21-2025 Episodic Other diseases of bladder and urethra (20 sources) Overactive bladder 04-15-2022 Chronic Other diseases of bladder and urethra (2 sources) Detrusor overactivity; Translations: [Overactive bladder] Onset: 10-26-2022 Chronic Other diseases of bladder and urethra (2 sources) Disorder of bladder; Translations: [Other specified disorders of bladder] Onset: 09-17-2024 Chronic Other diseases of bladder and urethra (11 sources) Neurogenic bladder; Translations: [Neuromuscular dysfunction of bladder, unspecified] 10-19-2024 Chronic Other diseases of bladder and urethra (4 sources) Spasm of bladder 01-03-2025 Chronic Other diseases of bladder and urethra (1 source) Neurogenic dysfunction of the urinary bladder; Translations: [Neuromuscular dysfunction of bladder, unspecified] Onset: 02-28-2025 Chronic Other diseases of bladder and urethra (1 source) Neuromuscular dysfunction of bladder, unspecified; Translations: [Neurogenic bladder] Onset: 03-21-2025 Chronic Other endocrine disorders (12 sources) Polycystic ovary syndrome; Translations: [Polycystic ovarian syndrome] Onset: 09-06-2017 02-16-2021 Chronic Other female genital disorders (1 source) Pain in female genitalia on intercourse; Translations: [Unspecified dyspareunia] 11-07-2024 Chronic Other female genital disorders (7 sources) Vaginal discharge; Translations: [Other specified noninflammatory disorders of vagina] Episodic Other female genital disorders (1 source) Noninflammatory disorder of the vagina; Translations: [Other specified noninflammatory disorders of vagina] Onset: 11-08-2023 Episodic Other female genital disorders (2 sources) Vagina finding; Translations: [Unspecified condition associated with female genital organs and menstrual cycle] 07-18-2024 Episodic Other lower respiratory disease (1 source) Cough; Translations: [Cough, unspecified] Onset: 06-06-2024 Episodic Other nervous system disorders (11 sources) Neuropathy 09-22-2024 Chronic Other nervous system disorders (1 source) Demyelinating disease of central nervous system 11-02-2024 Chronic Other nervous system disorders (1 source) Mononeuropathy; Translations: [Mononeuropathy, unspecified] Onset: 02-28-2025 Chronic Other nervous system disorders (1 source) Demyelinating disease of central nervous system, unspecified; Translations: [Demyelinating disease of central nervous system (HCC)] Onset: 11-02-2024 Chronic Other nervous system disorders (2 sources) Magnetic resonance imaging of brain abnormal; Translations: [White matter disease, unspecified] 11-02-2024 Episodic Other nutritional; endocrine; and metabolic disorders (1 source) Body mass index less than 20; Translations: [Body mass index (BMI) 19.9 or less, adult] Onset: 02-28-2025 Episodic Other skin disorders (1 source) Disorder of skin; Translations: [Disorder of the skin and subcutaneous tissue, unspecified] Onset: 11-18-2021 Episodic Other skin disorders (20 sources) Disorder of skin of upper limb 11-18-2021 Episodic Other upper respiratory infections (20 sources) Chronic sinusitis; Translations: [Chronic sinusitis, unspecified] Onset: 06-02-2022 Chronic Otitis media and related conditions (1 source) Non-suppurative otitis media; Translations: [Unspecified nonsuppurative otitis media, unspecified ear] Onset: 06-02-2022 Episodic Pneumonia (except that caused by tuberculosis or sexually transmitted disease) (1 source) Pneumonia; Translations: [Pneumonia, unspecified organism] Onset: 06-06-2024 Episodic Residual codes; unclassified (6 sources) Patient encounter status; Translations: [Other specified health status] Onset: 11-18-2021 Episodic Residual codes; unclassified (5 sources) Body mass index 20-24 - normal; Translations: [Body mass index (BMI) 23.0-23.9, adult] Onset: 08-23-2023 Episodic Screening and history of mental health and substance abuse codes (20 sources) Tobacco use and exposure - finding 11-18-2021 Chronic Spondylosis; intervertebral disc disorders; other back problems (20 sources) Musculoskeletal disorder of the neck 08-25-2021 Episodic Sprains and strains (1 source) Sprain of wrist; Translations: [Unspecified sprain of right wrist, initial encounter] Onset: 01-02-2023 Episodic Substance-related disorders (13 sources) Smoker 09-17-2024 Chronic Comment on above: Added secondary to d ocumentation in Social History. Unclassified (2 sources) Patient encounter status; Translations: [Pre-op testing] Unclassified (20 sources) Adverse reaction to COVID-19 vaccine 08-25-2021 Unclassified (20 sources) Finding of sensation of bladder 11-20-2021 Unclassified (20 sources) Asymptomatic microscopic hematuria 06-15-2022 Unclassified (20 sources) Body mass index 20-24 - normal 08-23-2023 Unclassified (20 sources) Non-smoker 02-23-2024 Unclassified (3 sources) Autogenerated Problem Onset: 02-20-2025 02-20-2025 Unclassified (1 source) Established Patient Follow-Up Onset: 12-07-2024 Urinary tract infections (20 sources) Chronic interstitial cystitis; Translations: [Interstitial cystitis (chronic) without hematuria] Onset: 07-23-2020 07-23-2020 Chronic Urinary tract infections (20 sources) Hemorrhagic cystitis; Translations: [Acute urinary tract infection] Onset: 04-05-2019 Resolved: 06-03-2021 04-05-2019 Episodic Past or Other Problems Problem Classification Problem Date Documented Date Episodic/Chronic Abdominal pain (20 sources) Pain in female pelvis; Translations: [Pelvic and perineal pain] Onset: 10-02-2020 Episodic Bacterial infection; unspecified site (14 sources) Bacterial infectious disease; Translations: [Other specified bacterial agents as the cause of diseases classified elsewhere] Onset: 11-08-2023 Episodic Comment on above: ESBL E Coli in urine ESBL - E Coli in uri ne 10/19/2024 ESBL E coli in urine 01/27/2025 Complications of surgical procedures or medical care (2 sources) Reaction to lumbar puncture; Translations: [Other reaction to spinal and lumbar puncture] Onset: 11-16-2024 Episodic Menstrual disorders (10 sources) Dysmenorrhea; Translations: [Dysmenorrhea, unspecified] Onset: 03-24-2021 Resolved: 06-03-2021 Chronic Other aftercare (12 sources) Marijuana user; 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] Onset: 05-23-2019 02-16-2021 Episodic Other female genital disorders (10 sources) Pelvic congestion syndrome; Translations: [Other specified conditions associated with female genital organs and menstrual cycle] Onset: 03-24-2021 Resolved: 06-03-2021 Episodic Other nervous system disorders (1 source) White matter disease, unspecified; Translations: [White matter abnormality on MRI of brain] Onset: 11-14-2024 Episodic Other screening for suspected conditions (not mental disorders or infectious disease) (1 source) Encounter for screening for other disorder; Translations: [Screening for genitourinary condition] Onset: 11-07-2024 Episodic Unclassified (1 source) Exposure to 2019 novel coronavirus; Translations: [Contact with and (suspected) exposure to COVID19] Viral infection (1 source) Disease caused by 2019-nCoV; Translations: [COVID-19] Onset: 03-17-2024 Results Test Name Value Interpretation Reference Range Facility [facility] 04-13-2025 [facility] Telephone (UROLMN) SINAI LOCKWOOD ([id number]) 1995 F Date Time Provider Department 04/13/25 MATTEO SNOW URON During your visit today, we recorded the following information about you: Matteo Snow MD 04/13/2025 10:01 AM Signed The patient was contacted to follow up after the procedure on her preferred phone number. However, there was no response. A message was sent to her voice mail to reach us back in case of any concerns. Matteo Snow MD Clinical Fellow Allergies As of Date: 04/13/2025 Noted Allergy Reaction ADHESIVE 04/11/2025 2 - Rash Comments: Skin glue HIBICLENS (CHLORHEXIDINE) 04/11/2025 4 - Hives LATEX 11/01/2024 4 - Hives PENICILLINS 11/01/2024 4 - Hives PROPOLIS (BEE GLUE) 11/01/2024 9 - Itching VANCOMYCIN 04/11/2025 9 - Itching Comments: Patient with red man syndrome after 30 minutes (500mg) IV infusion. Itchy, Shortness of Breath, red face. Did not happen with vancomycin 1g over 60 minutes in the past. Resolved with discontinuation and 50mg PO benadryl. Date Reviewed: 04/11/2025 Reviewed by: Rebecca Maravilla RN - Fully Assessed Prescriptions as of 04/13/2025 - nitrofurantoin monohydrate and macrocrystal (MACROBID) 100 mg capsule Take 1 capsule by mouth two times a day for 7 days. - oxybutynin (DITROPAN) 5 mg tablet Take 5 mg by mouth four times a day as needed (bladder spasms). - PERCOCET 5-325 mg tablet Take 1 tablet by mouth every 6 hours as needed for pain. - DULoxetine (CYMBALTA) 30 mg capsule Take 1 capsule by mouth two times a day. Problem List As Of Date 04/13/2025 Noted Resolved Migraine without aura and without status migrai*12/07/2024 Mixed hyperlipidemia [E78.2] 06/24/2017 PCOS (polycystic ovarian syndrome) [E28.2] 09/06/2017 Migraine without status migrainosus, not intrac*06/25/2017 Nerve pain [M79.2] 03/21/2025 Neurogenic bladder [N31.9] 03/21/2025 Encounter Status:Closed by MATTEO SNOW on 04/13/25 [facility] [id number] 04-11-2025 [id number] HNO ID: [id number] Author: REBECCA MARAVILLA RN Service: ? Author Type: Registered Nurse Type: [id number] Filed: 04/11/2025 14:17 Note Text: Next dose of Tylenol can be taken at 5:30 pm if needed. Normal [facility] ANES POSTPROC EVALon 025 ANES POSTPROC EVAL HNO ID: [id number] Author: JOHN PAUL VELOZ MD Service: Anesthesiology Author Type: Anesthesiologist Type: Anesthesia Postprocedure Evaluation Filed: 04/11/2025 16:27 Note Text: POST ANESTHESIA EVALUATION NOTE : 1995 Procedure Summary Date: 04/11/25 Room / Location: [address] / [facility] Anesthesia Start: 1308 Anesthesia Stop: 1404 Procedure: INSRT NSTIM INTERSTIM PROCEDURE STAGE 2 W/ POCKET CREATE AND CONNECT BTWN ELCTRD ARRAY AND PULSE GENERATOR OR RECVR (Right: Buttocks) Diagnosis: Urinary retention (Urinary retention [R33.9]) Surgeons: Sinai Castanon MD Responsible Provider: John Paul Veloz MD Anesthesia Type: MAC ASA Status: 3 Anesthesia Type: MAC Last Vitals Vitals Value Taken Time BP 110/74 04/11/25 14:45 Temp 36.2 ?C (97.2 ?F) 04/11/25 14:30 Pulse 66 04/11/25 14:45 Resp 16 04/11/25 14:45 SpO2 99 % 04/11/25 14:45 Post Anesthesia Patient Status Patient Evaluation: PACU. PACU/ICU Patient Condition: stable. Anticipated Disposition: phase 2 then home. Neurological Status: aware and responsive. Pulmonary Status: breathing comfortably on room air Airway Control: returned to baseline unsupported. Cardiovascular Status: stable. Pain Management: clinically adequate - multimodal analgesia pain management approach Postoperative Hydration: acceptable. Intraoperative Events: no significant anesthesia events Recommendation: continue current plan of care. Anesthesia Observations No Documentation SIGNATURE: John Paul Veloz MD PATIENT NAME: Sinai Lockwood DATE: April 11, 2025 TIME: 4:27 PM CSN: [id number] [facility] ANES PRE-OPon 04-11-2025 ANES PRE-OP HNO ID: [id number] Author: JOHN PAUL VELOZ MD Service: Anesthesiology Author Type: Anesthesiologist Type: Anesthesia Preprocedure Evaluation Filed: 04/11/2025 11:37 Note Text: ANESTHESIOLOGY DAY OF SURGERY NOTE : 1995 Procedure Information Date/Time: 04/11/25 1215 Procedure: INSRT NSTIM INTERSTIM PROCEDURE STAGE 2 W/ POCKET CREATE AND CONNECT BTWN ELCTRD ARRAY AND PULSE GENERATOR OR RECVR (Pending: Buttocks) Location: [address] / [facility] Surgeons: Sinai Castanon MD Estimated body mass index is 22.71 kg/m? as calculated from the following: Height as of 03/21/25: 154.9 cm (5' 1 ). Weight as of 03/21/25: 54.5 kg (120 lb 3.2 oz). Most recent hematocrit and potassium results: Hematocrit 41.2 01/11/2025 Potassium 4.1 01/11/2025 Relevant Problems CARDIO (+) Migraine without aura and without status migrainosus, not intractable (+) Migraine without status migrainosus, not intractable NEURO-PSYCH (+) Migraine without aura and without status migrainosus, not intractable (+) Migraine without status migrainosus, not intractable I - PHYSICAL EVALUATION AIRWAY Patient intubated: No. Tracheostomy tube not present Mallampati: II. TM distance: >3 FB. Neck ROM: full ROM without neurological symptoms. Mouth opening: >3 FB. Short neck: no. Thick neck: no DENTAL Normal dental observations. Dental findings: teeth intact. Additional exam findings: no II - ANESTHESIA PLAN ASA Score: 3 Anesthetic Plan: MAC NPO Status: adequate Anesthetic plan additional comments: Symptoms of Sleep Apnea: Denies Previous Anesthesia: No history of adverse event Family history of anesthetic problems: None Functional Capacity Assessment:Denies chest pain and SOB with exertion. Denies change in functional capacity. History of GERD: No Most recent lab results: Hemoglobin 13.8 01/11/2025 Hematocrit 41.2 01/11/2025 Potassium 4.1 01/11/2025 Platelet Count 302 01/11/2025 PT Sec 11.3 11/28/2024 INR 1.0 11/28/2024 Creatinine 0.64 01/11/2025 . Monitoring Plan Monitoring plan: Standard ASA. Post Procedure Analgesic Plan Postoperative analgesic plan: parenteral or oral opioids and multimodal analgesia. Informed Consent Anesthetic risks, benefits, alternatives, personnel and consent discussed: yes. Patient / Responsible Constitution Party agrees to proceed: yes Patient / Surrogate agrees to blood products: Yes DNR status not reviewed with patient and/or family prior to surgery. Significant changes in the patient condition since the History and Physical, not otherwise documented in primary service progress note: no. Potential Anesthesia issues that may suggest increased risk of complications or contraindication to planned procedure: none. No vitals data found for the desired time range. Facility-Administered Medications as of 04/11/2025 Medication Dose Route Frequency [COMPLETED] acetaminophen 1,000 mg tab(s) (TYLENOL) 1,000 mg ORAL Pre-Op Once [COMPLETED] promethazine 12.5 mg tab(s) (PHENERGAN) 12.5 mg ORAL Pre-Op Once lactated ringers iv infusion 30 mL/hr INTRAVENOUS CONTINUOUS lidocaine (PF) 10 mg/mL (1 %) 1-2 mg injection (XYLOCAINE) 0.1-0.2 mL INTRADERMAL PRN lactated ringers iv infusion 5-30 mL/hr INTRAVENOUS CONTINUOUS NaCl 0.9% iv flush bag 20 mL INTRAVENOUS PRN vancomycin iv piggyback 1 g in D5W 200 mL (VANCOCIN) 1 g INTRAVENOUS Pre-Op Once gentamicin 80 mg in NaCl (iso-osmotic) 100 mL 80 mg INTRAVENOUS Marketing Production Coordinator to OR [COMPLETED] acetaminophen 650 mg tab(s) (TYLENOL) 650 mg ORAL Pre-Op Once [COMPLETED] promethazine 12.5 mg tab(s) (PHENERGAN) 12.5 mg ORAL Pre-Op Once [COMPLETED] ceFAZolin iv piggyback 2 g in D5W (iso-osmotic) 100 mL (ANCEF) 2 g INTRAVENOUS Pre-Op Once Outpatient Medications as of 04/11/2025 Medication Sig PERCOCET 5-325 mg tablet Take 1 tablet by mouth every 6 hours as needed for pain. DULoxetine (CYMBALTA) 30 mg capsule Take 1 capsule by mouth two times a day. I have interviewed and examined the patient. I have reviewed the medical record and/or the pre-anesthesia evaluation, pertinent labs, and test results. This contains updated information obtained within 48 hours of Surgery/Procedure. SIGNATURE: John Paul Veloz MD PATIENT NAME: Sinai Lockwood DATE: April 11, 2025 TIME: 11:36 AM CSN: [id number] [facility] HISTORY PHYSICALon HISTORY PHYSICAL HNO ID: [id number] Author: SINAI CASTANON MD Service: Urology Author Type: Physician Type: H&P Filed: 04/11/2025 12:51 Note Text: Preoperative HANDP Chief complaint: Patient is here today for management of nonobstructive urinary retention History, update from last visit: Previous notes were reviewed, no significant new changes. Patient is doing well, denies any new concerning symptoms. Examination: Patient is awake and alert, and oriented. Chest: unlabored respirations Heart: regular rate Abdomen: nondistended All lab results, imaging reviewed and there was no change. Assessment and plan of management: Patient is here today for management of nonobstructive urinary retention Plan for Axonics IPG placement, stage 2 All patient's questions were discussed in detail, outline of procedure and recovery discussed. Surgical site : right Sinai Castanon MD April 11, 2025 12:50 PM [facility] OPERATIVE NOon 04-11-2025 OPERATIVE NO HNO ID: [id number] Author: SINAI CASTANON MD Service: Urology Author Type: Physician Type: Operative Report Filed: 04/12/2025 09:15 Note Text: OPERATIVE/PROCEDURE REPORT LOG ID: [id number] SURGERY/PROCEDURE DATE: 04/11/2025 INCISION/PROCEDURE START TIME: 1:30 PM INCISION CLOSE/PROCEDURE END TIME: 1:48 PM SURGEON(S)/PROCEDURALIS T(S) AND FIBER OPTIC TECHNICIAN(S): Surgeons and Role: * Sinai Castanon MD - Primary * Camille Morillo MD - Resident - Assisting * Matteo Snow MD - Fellow No Additional Staff SURGERY/PROCEDURE(S): Second stage implantation of Axonics sacral neuromodulator ANESTHESIA: Monitored Anesthesia Care SURGERY/PROCEDURE DETAILS: Implantation of rechargeable Axonics neurogenerator - implantable pulse generator (IPG) ([id number]). Electrical program analysis Initial programming less than 1 hour Procedure indication. This is a 30 year old female with a history of refractory non obstructive urinary retention. The patient underwent stage 1 sacral neuromodulation trial . The patient has had >50% improvement in symptoms documented in bladder diaries. She is able to urinate more easily and without pain. When she drained her bladder via SPT, max 100ml was left. The patient thus wishes to undergo the neurogenerator system implant (implantation of an IPG). The procedure materials, personnel, indications, alternatives, risks, and benefits were described in detail. Informed consent was obtained. Procedure narrative. The patient was administered a MAC anesthetic and preoperative intravenous antibiotics. The patient was carefully placed in the prone position, and their gluteal area was prepped and draped in standard sterile fashion. The operative field was prepped and draped. We then injected a solution of lidocaine 1% overlying the incisional site before opening it with a 15 blade. The percutaneous extension wire was disconnected and discarded. The incision was then deepened to allow implantation of the IPG. We then copiously irrigated the pocket, connected the IPG to the lead, and placed it into the pocket. Electrical analysis demonstrated normal impedance values throughout all lead points and accordingly the device was programmed. We then closed in a 2 layer fashion with 2-0 Vicryl followed by 4-0 Vicryl subcuticular closure. Counts were correct. The incision was cleaned and dried. Steri strips and 4x4s were placed over the incision, followed by Tegaderms. Then the patient was placed in supine position and suprapubic catheter exchange under sterile fashion was done. The balloon was filled with 5 cc sterile water. The patient was awakened from sedation and transferred to the PACU in stable condition. PRE-OP/PRE-PROCEDURE DIAGNOSIS: Non obstructive urinary retention POST-OP/POST-PROCEDURE DIAGNOSIS: Same as Preop ESTIMATED BLOOD LOSS: 5 mls SPECIMENS: None IMPLANTABLE DEVICES: Implant Name Type Inv. Item Serial No. Surveillance Dual Rate Officer Lot No. LRB No. Used Action RECHARGEABLE IMPLANT SACRAL NEUROSTIMULATOR NEUROMODULATION Generator [id number] Right 1 Implanted DRAINS: Suprapubic catheter COMPLICATIONS: None CLOSURE TECHNIQUE: Primary PARTICIPATION IN SURGERY/PROCEDURE: Dr Castanon performed the procedure with assistance SIGNATURE: Matteo Snow MD PATIENT NAME: Sinai Lockwood DATE: April 11, 2025 TIME: 1:57 PM Attending Note I evaluated the patient and personally participated in the menard components. I agree with fellow documentation. Signature: Sinai Castanon MD Date: April 12, 2025 Time: 9:15 AM [facility] Bacteria Ur Culton 5 Bacteria identified Cx Nom (U) ORGANISM ID: 1 >=100,000 CFU/ml Enterococcus faecalis Cephalosporins, clindamycin, and TMP-SMX are not effective for the treatment of enterococcal infections. ORGANISM ID: 1 (ENTEROCOCCUS FAECALIS) ANTIBIOTIC INTERPRETATION PATRICIA STATUS REFERENCE RANGE Ampicillin S <=2 F Susceptible <=8 , Resistant >8 Vancomycin S 2 F Susceptible <=4 , Intermediate >4 , Resistant >16 Nitrofurantoin S <=16 F Susceptible <=32 , Intermediate >32 , Resistant >64 [facility] Comment on above: Performed By: #### 6 30-4 ####[facility] LABCLIA [id number] [place] [address] [facility] CNOVon 04-06-2025 CNOV Office Visit (UROLAV ) SINAI LOCKWOOD ([id number]) 1995 F Date Time Provider Department 04/06/25 3:15 PM NURSE UROL [facility] REJ UROLAV During your visit today, we recorded the following information about you: Lisa Hernandez RN 04/06/2025 4:28 PM Signed Pt arrived to appointment ambulatory and accompanied by . Pt reporting burning with irritation, purulent drainage around SPT tube, symptoms of a yeast infection and complaining that her neuro stimulator was uncomfortable and felt like it was falling down her lower back (had placed 03/28/25 has next surgery for it scheduled on 04/11/[address] Castanon). Burning with urination: pt reports this started about 2 days after surgery on 03/28/25 and has continued to get worse, now reporting she also has some purulent drainage around capped SPT site and discomfort. SPT tube was changed on 03/28/25 and is currently capped. Since patient is now voiding advised we could collect a culture from midstream sample. Assessed patient SPT site and there was a small amount of drainage, very slight redness around the left lower side. Advised if patient does have a UTI present this could also be the cause of the SPT irritation. Urine culture was collected via midstream and sent to lab. Let patient know we should have culture results on Wednesday. Yeast infection symptoms: Pt reports she had IV antibiotics during recent surgery. She developed symptoms of vaginal discomfort, itching and white discharge a couple days later. She reports she did do a 3 day course of monistat with some improvement but since then symptoms have returned and are much worse. Asking for diflucan which has helped in the pasted. Will route to female urol pool. The neuro stimulator did appear that it was slipping down from original position. The wire appeared to still be intact and not dislodged at all but the box was low down toward her buttock. Pt had picture of where it was initially after procedure. Had patient take a picture with her phone of what it looked like at this time. I adjusted the position of the box slightly and reinforced the tegaderm dressing with a new dressing to hold in position better. Pt reports that it feels much more secure with the reinforced dressing and less uncomfortable Advised to send images through [employer] so we have a a resource if needed and to update us throughout the weekend if it slips down again or if she feels it is not working properly. Pt has a Tegaderm at home that I advised to use to reinforce dressing again if needed. Matteo Snow MD 04/06/2025 4:41 PM Signed Addended by: MATTEO SNOW on: 04/06/2025 04:41 PM Modules accepted: Orders Allergies As of Date: 04/06/2025 Noted Allergy Reaction LATEX 11/01/2024 4 - Hives PENICILLINS 11/01/2024 4 - Hives PROPOLIS (BEE GLUE) 11/01/2024 9 - Itching Date Reviewed: 03/28/2025 Reviewed by: Twila Reis RN - Fully Assessed Primary Visit Diagnosis:Dysuria [R30.0] Order(s):BACTERIAL CULTURE, URINE [SQURCUL] Order #: [id number]. #:[id number] fluconazole (DIFLUCAN) 100 mg tabletTake 1 tablet by mouth once daily for 3 days.Disp: 3 tabletRfl: 0 Prescriptions as of 04/09/2025 - fluconazole (DIFLUCAN) 100 mg tablet Take 1 tablet by mouth once daily for 3 days. - oxybutynin (DITROPAN) 5 mg tablet Take 5 mg by mouth four times a day as needed (bladder spasms). - PERCOCET 5-325 mg tablet Take 1 tablet by mouth every 6 hours as needed for pain. - DULoxetine (CYMBALTA) 30 mg capsule Take 1 capsule by mouth two times a day. Problem List As Of Date 04/06/2025 Noted Resolved Migraine without aura and without status migrai*12/07/2024 Mixed hyperlipidemia [E78.2] 06/24/2017 PCOS (polycystic ovarian syndrome) [E28.2] 09/06/2017 Migraine without status migrainosus, not intrac*06/25/2017 Nerve pain [M79.2] 03/21/2025 Neurogenic bladder [N31.9] 03/21/2025 Prescriptions ordered this encounter Disp Refills Start End FLUCONAZOLE 100 MG TABLET 3 ta* 0 04/06/2025 04/09/2025 Route: PO Sig: Take 1 tablet by mouth once daily for 3 days. Encounter Status:[facility] L[facility]DE[facility] (UROCAROLINAN) SINAI LOCKWOOD ([id number]) 1995 F Date Time Provider Department 04/03/25 SINAI CASTANON During your visit today, we recorded the following information about you: Jing Estes RN 04/03/2025 12:04 PM Signed LVM requesting voiding diaries during the stage 1 SNM trial so far. Jing BOBO, BSN Allergies As of Date: 04/03/2025 Noted Allergy Reaction LATEX 11/01/2024 4 - Hives PENICILLINS 11/01/2024 4 - Hives PROPOLIS (BEE GLUE) 11/01/2024 9 - Itching Date Reviewed: 03/28/2025 Reviewed by: Twila Reis, JIHAN - Fully Assessed Prescriptions as of 04/03/2025 - oxybutynin (DITROPAN) 5 mg tablet Take 5 mg by mouth four times a day as needed (bladder spasms). - PERCOCET 5-325 mg tablet Take 1 tablet by mouth every 6 hours as needed for pain. - DULoxetine (CYMBALTA) 30 mg capsule Take 1 capsule by mouth two times a day. Problem List As Of Date 04/03/2025 Noted Resolved Migraine without aura and without status migrai*12/07/2024 Mixed hyperlipidemia [E78.2] 06/24/2017 PCOS (polycystic ovarian syndrome) [E28.2] 09/06/2017 Migraine without status migrainosus, not intrac*06/25/2017 Nerve pain [M79.2] 03/21/2025 Neurogenic bladder [N31.9] 03/21/2025 Encounter Status:Closed by JING ESTES on 04/03/25 [facility] 03-30-2025 [facility] Telephone (UROLMN) SINAI LOCKWOOD ([id number]) 1995 F Date Time Provider Department 03/30/25 [facility] During your visit today, we recorded the following information about you: Matteo Snow MD 03/30/2025 11:49 AM Signed The patient was contacted to follow up after the procedure on her preferred phone number. However, there was no response. A message was sent to her voice mail to reach us back in case of any concerns. Matteo Snow MD Clinical Fellow Allergies As of Date: 03/30/2025 Noted Allergy Reaction LATEX 11/01/2024 4 - Hives PENICILLINS 11/01/2024 4 - Hives PROPOLIS (BEE GLUE) 11/01/2024 9 - Itching Date Reviewed: 03/28/2025 Reviewed by: Twila Reis RN - Fully Assessed Prescriptions as of 03/30/2025 - oxybutynin (DITROPAN) 5 mg tablet Take 5 mg by mouth four times a day as needed (bladder spasms). - PERCOCET 5-325 mg tablet Take 1 tablet by mouth every 6 hours as needed for pain. - DULoxetine (CYMBALTA) 30 mg capsule Take 1 capsule by mouth two times a day. Problem List As Of Date 03/30/2025 Noted Resolved Migraine without aura and without status migrai*12/07/2024 Mixed hyperlipidemia [E78.2] 06/24/2017 PCOS (polycystic ovarian syndrome) [E28.2] 09/06/2017 Migraine without status migrainosus, not intrac*06/25/2017 Nerve pain [M79.2] 03/21/2025 Neurogenic bladder [N31.9] 03/21/2025 Encounter Status:Closed by MATTEO SNOW on 03/30/25 [facility] ANES POSTPROC EVALon 025 ANES POSTPROC EVAL HNO ID: [id number] Author: JESSICA JIMÉNEZ MD Service: Anesthesiology Author Type: Anesthesiologist Type: Anesthesia Postprocedure Evaluation Filed: 03/28/2025 10:14 Note Text: POST ANESTHESIA EVALUATION NOTE : 1995 Procedure Summary Date: 03/28/25 Room / Location: [address] / [facility] Anesthesia Start: 738 Anesthesia Stop: 927 Procedure: PERCUTANEOUS IMPLANTATION OF NEUROSTIMULATOR ECLECTRODE ARRAY SACRAL NERVE W/IMAGE GUIDANCE (Spine) Diagnosis: Urinary retention (Urinary retention [R33.9]) Surgeons: Sinai Castanon MD Responsible Provider: Jessica Jiménez MD Anesthesia Type: MAC ASA Status: 1 Anesthesia Type: MAC Last Vitals Vitals Value Taken Time BP 107/69 03/28/25 09:45 Temp 37.2 ?C (99 ?F) 03/28/25 09:27 Pulse 03/28/25 10:14 Resp 18 03/28/25 09:45 SpO2 100 % 03/28/25 09:45 Post Anesthesia Patient Status Patient Evaluation: PACU. PACU/ICU Patient Condition: stable. Anticipated Disposition: phase 2 then home. Neurological Status: aware and responsive. Pulmonary Status: breathing comfortably on room air Airway Control: returned to baseline unsupported. Cardiovascular Status: stable. Pain Management: clinically adequate Postoperative Hydration: acceptable. Intraoperative Events: no significant anesthesia events Post Operative Nausea/Vomiting Status: no significant post operative nausea or vomiting Recommendation: continue current plan of care. Anesthesia Observations No Documentation SIGNATURE: Jessica Jiménez MD PATIENT NAME: Sinai Lockwood DATE: March 28, 2025 TIME: 10:14 AM CSN: [id number] [facility] ANES PRE-OPon 03-28-2025 ANES PRE-OP HNO ID: [id number] Author: JESSICA JIMÉNEZ MD Service: Anesthesiology Author Type: Anesthesiologist Type: Anesthesia Preprocedure Evaluation Filed: 03/28/2025 07:14 Note Text: ANESTHESIOLOGY DAY OF SURGERY NOTE : 1995 Procedure Information Date/Time: 03/28/25729 Procedure: PERCUTANEOUS IMPLANTATION OF NEUROSTIMULATOR ECLECTRODE ARRAY SACRAL NERVE W/IMAGE GUIDANCE (Spine) Location: [address] / [facility] Surgeons: Sinai Castanon MD Estimated body mass index is 22.71 kg/m? as calculated from the following: Height as of 03/21/25: 154.9 cm (5' 1 ). Weight as of 03/21/25: 54.5 kg (120 lb 3.2 oz). Most recent hematocrit and potassium results: Hematocrit 41.2 01/11/2025 Potassium 4.1 01/11/2025 Relevant Problems CARDIO (+) Migraine without aura and without status migrainosus, not intractable (+) Migraine without status migrainosus, not intractable NEURO-PSYCH (+) Migraine without aura and without status migrainosus, not intractable (+) Migraine without status migrainosus, not intractable I - PHYSICAL EVALUATION AIRWAY Patient intubated: No. Tracheostomy tube not present Mallampati: I. TM distance: >3 FB. Neck ROM: full ROM without neurological symptoms. Mouth openin FB. Short neck: no. Thick neck: no DENTAL Dental findings: teeth intact. II - ANESTHESIA PLAN ASA Score: 1 Anesthetic Plan: MAC The patient is not a current smoker. NPO Status: adequate Monitoring Plan Monitoring plan: standard ASA. Post Procedure Analgesic Plan Postoperative analgesic plan: multimodal analgesia. Informed Consent Anesthetic risks, benefits, alternatives, personnel and consent discussed: yes. Patient / Responsible Constitution Party agrees to proceed: yes Patient / Surrogate agrees to blood products: blood products not planned DNR status not reviewed with patient and/or family prior to surgery. Significant changes in the patient condition since the History and Physical, not otherwise documented in primary service progress note: no. Potential Anesthesia issues that may suggest increased risk of complications or contraindication to planned procedure: none. Vitals Value Taken Time BP 134/86 03/28/25 06:50 Pulse 73 03/28/25 06:50 Resp 18 03/28/25 06:50 Temp 36.9 ?C (98.4 ?F) 03/28/25 06:50 SpO2 98 % 03/28/25 06:50 Facility-Administered Medications as of 03/28/2025 Medication Dose Route Frequency [COMPLETED] acetaminophen 650 mg tab(s) (TYLENOL) 650 mg ORAL Pre-Op Once [COMPLETED] promethazine 12.5 mg tab(s) (PHENERGAN) 12.5 mg ORAL Pre-Op Once lactated ringers iv infusion 30 mL/hr INTRAVENOUS CONTINUOUS lidocaine (PF) 10 mg/mL (1 %) 1-2 mg injection (XYLOCAINE) 0.1-0.2 mL INTRADERMAL PRN lactated ringers iv infusion 5-30 mL/hr INTRAVENOUS CONTINUOUS NaCl 0.9% iv flush bag 20 mL INTRAVENOUS PRN ceFAZolin iv piggyback 2 g in D5W (iso-osmotic) 100 mL (ANCEF) 2 g INTRAVENOUS Pre-Op Once Outpatient Medications as of 03/28/2025 Medication Sig PERCOCET 5-325 mg tablet Take 1 tablet by mouth every 6 hours as needed for pain. DULoxetine (CYMBALTA) 30 mg capsule Take 1 capsule by mouth two times a day. I have interviewed and examined the patient. I have reviewed the medical record and/or the pre-anesthesia evaluation, pertinent labs, and test results. This contains updated information obtained within 48 hours of Surgery/Procedure. SIGNATURE: Jessica Jiménez MD PATIENT NAME: Sinai Lockwood DATE: March 28, 2025 TIME: 7:13 AM CSN: [id number] [facility] BRIEF OP NOTon 03-28-2025 BRIEF OP NOT HNO ID: [id number] Author: MATTEO SNOW MD Service: Urology Author Type: Fellow Type: Brief Op Note Filed: 03/28/2025 09:26 Note Text: BRIEF OPERATIVE / PROCEDURE NOTE LOG ID: [id number] SURGERY/PROCEDURE DATE: 03/28/2025 INCISION/PROCEDURE START TIME: 8:06 AM INCISION CLOSE/PROCEDURE END TIME: 9:08 AM SURGEON(S)/PROCEDURALIS T(S) AND FIBER OPTIC TECHNICIAN(S): Surgeons and Role: * Sinai Castanon MD - Primary * Matteo Snow MD - Resident - Assisting No Additional Staff SURGERY/PROCEDURE(S): SNM first stage axonics and SPT exchange ANESTHESIA: Monitored Anesthesia Care FINDINGS: Good respnse on right S3 ESTIMATED BLOOD LOSS: 5 mls SPECIMENS: None CLOSURE TECHNIQUE: Primary PRE-OP/PRE-PROCEDURE DIAGNOSIS: POST-OP/POST-PROCEDURE DIAGNOSIS: Same as Preop Patient was accompanied to the next level of care by a licensed practitioner from the surgical team pending completion of this brief op note (or operative note) SIGNATURE: Matteo Snow MD PATIENT NAME: Sinai Lockwood DATE: March 28, 2025 TIME: 9:25 AM [facility] HISTORY PHYSICALon HISTORY PHYSICAL HNO ID: [id number] Author: MATTEO SNOW MD Service: Urology Author Type: Fellow Type: H&P Filed: 03/28/2025 06:50 Note Text: Preoperative HANDP Chief complaint: Patient is here today for management of neurogenic bladder History, update from last visit: Previous notes were reviewed, no significant new changes. Patient is doing well, denies any new concerning symptoms. Examination: Participation of a fellow, resident, medical student, or advanced practice provider student in performing the sensitive examination was discussed with the patient or authorized fuels sales representative. The patient or authorized fuels sales representative has agreed to proceed with the sensitive examination. Patient is awake and alert, and oriented. Chest: unlabored respirations Abdomen: nondistended All lab results, imaging reviewed and there was no change. Assessment and plan of management: Patient is here today for management of neurogenic bladder Plan for implantation of sacral neuromodulation lead 1st stage with possible exchange of suprapubic tube All patient's questions were discussed in detail, outline of procedure and recovery discussed. Surgical site : n/a Matteo Snow MD Urology Clinical Fellow [facility] OPERATIVE NOon 03-28-2025 OPERATIVE NO HNO ID: [id number] Author: SINAI CASTANON MD Service: Urology Author Type: Physician Type: Operative Report Filed: 03/28/2025 10:34 Note Text: OPERATIVE/PROCEDURE REPORT LOG ID: [id number] SURGERY/PROCEDURE DATE: 03/28/2025 INCISION/PROCEDURE START TIME: 8:06 AM INCISION CLOSE/PROCEDURE END TIME: 9:08 AM SURGEON(S)/PROCEDURALIS T(S) AND FIBER OPTIC TECHNICIAN(S): Surgeons and Role: * Sinai Castanon MD - Primary * Matteo Snow MD - Resident - Assisting No Additional Staff SURGERY/PROCEDURE(S): 1. Peripheral Nerve Stimulation Stage 1- Incision and implantation of tined quadripolar lead electrodes into right S3 ( Axonics) Foramen (43459) 2. Fluoroscopic guidance for needle placement (22827) Procedure indication. This patient has a history of Neurogenic bladder and non-obstructive urinary retention. This has been substantiated on voiding diaries preoperatively, and the patient has tried and failed behavioral modifications. She had difficulty with self-catheterization and currently has a suprapubic catheter. Despite these lifestyle modifications and medications, significant bothersome symptoms persist. Accordingly options were discussed with the patient and the decision was made to undergo staged sacral neuromodulation. The procedure, materials, personnel, indications, alternatives, risks, and benefits were described in great detail. Consent was obtained. The patient now presents for definitive therapy. Procedure narrative. The patient was brought to the operative suite, properly identified utilizing two patient identifiers and placed in prone position per OR protocol. The safety checklist was performed. Preoperative antibiotics and MAC anesthesia were administered. The patient was prepped and draped in usual sterile fashion. Using fluoroscopic localization, the approximate locations of the S2, S3 and S4 neural foramina were identified. Local injection of 1% lidocaine was administered. The spinal needle was then passed and proper needle position was confirmed with fluoroscopy and by patient identification of location of sensation, direct observation of dominick, and observation of plantar flexion of the great toe. The patient's right neural foramen had the following response: Lead 1 Location: S3: Right MOTOR RESPONSE: Electrode 0 1 2 3 Anal Dominick + + + - Flexion of Great Toe + + + - mA 1.9 1.9 1.9 1.9 An incision was made with a 15 blade alongside the spinal needle in order to place the lead. We placed 3 electrodes below and 1 above the sacral plate. We created a right upper gluteal incision and developed an initial pocket for use as future IPG pocket. Utilizing the tunneling device, we then tunneled the lead to the pocket. It was connected to the percutaneous extension wire using 1 setscrews. A prolene tie was used to make a loop in the wire to prevent migration. The percutaneous extension wire was tunneled out a midline upper gluteal exit site. Hemostasis was achieved and the incision was copiously irrigated and closed in a 2 layer fashion with 2-0 Vicryl followed by 4-0 Vicryl subcuticular closure. Counts were correct. Incisions were cleaned and dried. Steri strips and 4x4s were placed over the incision and under the extension followed by Tegaderms. The suprapubic tube size 16 F was exchanged under aseptic condition with same size catheter. The catheter was plugged and kept closed for evaluation of voiding through the trial period. The patient was awakened from sedation and transferred to the PACU in stable condition. Using the external test stimulator, the patient was programmed to the lead of optimum sensation and given instructions on utilizing the external test stimulator prior to discharge. A urinary diary will be kept until re-evaluation to discuss results of this test stimulation. No complications. PRE-OP/PRE-PROCEDURE DIAGNOSIS: non obstructive urinary retention. POST-OP/POST-PROCEDURE DIAGNOSIS: Same as Preop ESTIMATED BLOOD LOSS: 5 mls SPECIMENS: None IMPLANTABLE DEVICES: Axonics lead and extension DRAINS: Suprapubic catheter COMPLICATIONS: None CLOSURE TECHNIQUE: Primary PARTICIPATION IN SURGERY/PROCEDURE: Dr Castanon Performed the procedure with assistance SIGNATURE: Matteo Snow MD PATIENT NAME: Sinai Lockwood DATE: March 28, 2025 TIME: 9:37 AM Attending Note I evaluated the patient and personally participated in the menard components. I agree with fellow documentation. Signature: Sinai Castanon MD Date: March 28, 2025 Time: 10:34 AM [facility] Family Medicine Office/Clini c Noteon 03-26-2025 Family Medicine Office/Clinic Note Family Medicine Office/Clinic Note Chief Complaint Disability Paper Work HPI Staff Here For: Disability Paper Work ht 165 History of Present Illness Sinai is a 30 year old female who presents for paperwork for disability. She is pending 2 surgical procedures in mar and apr per [facility]. She needs her disability extended beyond mar 28 (that's all she was temporarily approved for). She also needs a refill on her pain medication - she will be having surgery on mar 28 and [facility] will not provide any pain medication. Staff HPI and OARRS reviewed. Review of Systems PHQ Score Initial Depression Screen Score: 0 SCORE Physical Exam Vitals & Measurements HR: 63(Peripheral) RR: 16 BP: 106/58 SpO2: 93% HT: 165 cm HT: 65 in WT: 54.8 kg WT: 120.813 lb BMI: 20.13 supra [address] catheter in place and draining well. Assessment/Plan 1. Neurogenic bladder (N31.9: Neuromuscular dysfunction of bladder, unspecified) refill pain medication paperwork completed for continued disability fu after surgery 2. BMI 20.0-20.9, adult (Z68.20: Body mass index [BMI] 20.0-20.9, adult) stable 3. Never used tobacco (Z78.9: Other specified health status) stable Follow-up No qualifying data available Problem List/Past Medical History Ongoing Adverse reaction to COVID-19 vaccine Arm skin lesion, right Asymptomatic microscopic hematuria Bladder pain Bladder spasm BMI 22.0-22.9, adult BMI 23.0-23.9, adult BV (bacterial vaginosis) Endometriosis ESBL (extended spectrum beta-lactamase) producing bacteria infection Gross hematuria Incomplete bladder emptying Interstitial cystitis Musculoskeletal disorder involving upper trapezius muscle Myofascial muscle pain Nerve disorder Nerve pain Neurogenic bladder Non-smoker Non-tobacco user Nonsmoker OAB (overactive bladder) Pelvic floor dysfunction Rectal bleeding Sinusitis Smoker Suprapubic catheter Urinary retention UTI (urinary tract infection) Vaginal yeast infection Vomiting Historical Endometriosis Interstitial cystitis Seizure Urinary retention Procedure/Surgical History Cystoscopy (09/05/2024), Cystoscopy (12/02/2021), Cystourethroscopy with dilation of urethral stricture (07/24/2020), Cystoscopy (2019), History of tonsillectomy, Hysterectomy, Laparoscope, Laser uterosacral nerve ablation, AUDI - Laser uterosacral nerve ablation. Medications duloxetine 30 mg oral delayed release capsule, 30 mg= 1 cap(s), Oral, BID oxybutynin 5 mg Tab, 5 mg= 1 tab(s), Oral, QID, PRN, 4 refills Percocet 5 mg-325 mg oral tablet, 1 tab(s), Oral, BID Allergies Latex (Hives) penicillin (Hives) Social History Alcohol - Denies Alcohol Use, 12/17/2020 Past. Beer. 1-2 times per month., 12/25/2024 Never., 05/19/2024 Substance Abuse - Denies Substance Abuse, 08/30/2024 Never., 09/18/2024 Never., 05/19/2024 Tobacco - Medium Risk, 08/30/2024 Never (less than 100 in lifetime) Tobacco Use:., 03/23/2025 Never (less than 100 in lifetime) Tobacco Use:. Never Smokeless Tobacco Use:. Household tobacco concerns: No., 01/31/2025 Family History MS - Multiple sclerosis: Aunt and Aunt. Immunizations Vaccine Date Status Comments influenza virus vaccine, inactivated - Not Given Patient Refuses influenza virus vaccine, inactivated - Not Given Patient Refuses pt siick today influenza virus vaccine, inactivated - Not Given Patient Refuses SARS-CoV-2 mRNA (tozinameran 5y-11y) vac - Not Given Postpone due to refusal [facility] Comment on above: Result Comment: Elec tronically Signed By: IVET LAWLER\.br\Date and Time Signed: 03/26/25 13:01 EDT Ambulatory Visit Summaryon 0 03-23-2025 Ambulatory Visit Summary Ambulatory Visit Summary SINAI LOCKWOOD :1995 Visit Date:03/23/2025 Ambulatory Visit Instructions Your Diagnosis BMI 20.0-20.9, adult Never used tobacco Neurogenic bladder Your Care Team Attending Physician - IVET LAWLER Primary Care Physician - IVET LAWLER This Is Your Medications List acetaminophen-oxycodone (Percocet 5 mg-325 mg oral tablet) duloxetine (duloxetine 30 mg oral delayed release capsule) oxybutynin (oxybutynin 5 mg Tab) Procedures Performed Cystoscopy (09/05/2024), Cystoscopy (12/02/2021), Cystourethroscopy with dilation of urethral stricture (07/24/2020), Cystoscopy (2019), History of tonsillectomy, Hysterectomy, Laparoscope, Laser uterosacral nerve ablation, AUDI - Laser uterosacral nerve ablation. Discharge Vitals Heart Rate (Peripheral) 63 Respiratory Rate 16 Blood Pressure 106/58 Height 165 cm Height 65 in Weight 54.8 kg Weight 120.813 lb BMI 20.13 Medications What How Much When Why Instructions Unchanged acetaminophen-oxycodone (Percocet 5 mg-325 mg oral tablet) 1 Tablets By Mouth 2 times a day Neurogenic bladder Pickup at [facility] Unchanged duloxetine (duloxetine 30 mg oral delayed release capsule) 1 Capsules By Mouth 2 times a day Neurogenic bladder Unchanged oxybutynin (oxybutynin 5 mg Tab) 1 Tablets By Mouth 4 times a day as needed for for urinary discomfort Bladder pain Pharmacy Information [facility]: [address] [place], [place] [phone] Allergies Latex (Hives) penicillin (Hives) Problems Ongoing - Any problem that you are currently receiving treatment for. Adverse reaction to COVID-19 vaccine Arm skin lesion, right Asymptomatic microscopic hematuria Bladder pain Bladder spasm BMI 22.0-22.9, adult BMI 23.0-23.9, adult BV (bacterial vaginosis) Endometriosis ESBL (extended spectrum beta-lactamase) producing bacteria infection Gross hematuria Incomplete bladder emptying Interstitial cystitis Musculoskeletal disorder involving upper trapezius muscle Myofascial muscle pain Nerve disorder Nerve pain Neurogenic bladder Non-smoker Non-tobacco user Nonsmoker OAB (overactive bladder) Pelvic floor dysfunction Rectal bleeding Sinusitis Smoker Suprapubic catheter Urinary retention UTI (urinary tract infection) Vaginal yeast infection Vomiting Historical - Any problem that you are no longer receiving treatment for. Endometriosis Interstitial cystitis Seizure Urinary retention Patient Survey You may receive a survey via text or e-mail asking about your office visit. Please share your experience with us by completing your survey. We appreciate your feedback and thank you for choosing us for your care. Patient Portal You may access all of your results and other medical record information on our secure patient portal. If you are not signed up for this yet, please contact [employer] at [phone] to get signed up today. Language Information Language assistance services are available as needed. [facility] HISTORY PHYSICALon HISTORY PHYSICAL HNO ID: [id number] Author: DIDIER SOUTH APRN.LEAD MOBILE DEVELOPER Service: ? Author Type: Physician Precision Crop Manager Type: H&P Filed: 03/21/2025 16:44 Note Text: [facility] HISTORY AND PHYSICAL EXAMINATION SERVICE DATE: 03/21/2025 SERVICE TIME: 4:37 PM PRIMARY CARE PHYSICIAN: Bebeto Carty APRN Assessment Patient has the following medical conditions which may affect palak-operative course: E78.2 Mixed hyperlipidemia Comment: NO mediation. G43.009 Migraine without aura and without status migrainosus, not intractable Comment: on Cymbalta. M79.2 Nerve pain Comment: Percocet as needed. N31.9 Neurogenic bladder Comment: oxybutynin 5mg. ANESTHESIA FINDINGS: Intubation History: No history of difficult intubation. No abnormal airway history Significant Anesthesia Considerations: none Airway History: No history of difficult airway No abnormal airway history Reynolds Activity Status Index: METS: Walk indoors, such as around the house (1.75 METs) Do light work around the house, such as dusting or washing dishes (2.70 METs) Take care of self; that is eating, dressing, bathing, using the toilet (2.75 METs) Walk a block or two on level ground (2.75 METs) Do moderate work around the house, such as vacuuming, sweeping floors, or carrying in groceries (3.50 METs) Do yardwork, such as raking leaves, weeding, or pushing a power mower (4.50 METs) Climb a flight of stairs or walk up a hill (5.50 METs) DASI Score: 23.45 Patient denies any chest pain or undue shortness of breath with the above physical activity. Clinical Frailty Scale: 1. Very fit STOP-Bang Score: Denies snoring loudly Denies feeling tired, fatigued, or sleepy during the daytime Has not been observed to stop breathing or choking/gasping during sleep STOP-Bang Score: 0 [id number] Score: Age: <65 Sex: female Stroke/TIA/thromboembol ism history: No Vascular disease history: No Diabetes history: No [id number] Score: ARISCAT Score: Age: <=50 Preoperative SpO2: <=90% Preoperative anemia: Yes Duration of surgery: <2 hrs Emergency procedure: No ARISCAT Score: I - PHYSICAL EVALUATION AIRWAY Patient intubated: No. II - ANESTHESIA PLAN Informed Consent Prepared for Surgery: optimally prepared for surgery. CONSULTS: Patient does not require consults for optimization at this time Planned Anesthetic: The Following Tests/Procedures Have Been Initiated: This is a virtual visit using [employer] video visit. It required patient-provider interaction for the medical decision making as documented below. REASON FOR VISIT: Sinai Lockwood is a 30 year old female who is scheduled for * No surgery found * at the request of Dr. Sinai Castanon for consultation. My final recommendation will be communicated back to the requesting physician by way of shared medical record or letter. Subjective The patient has the following: COVID-19 Immunization Status This patient has no relevant Health Maintenance data. CHIEF COMPLAINT: preop exam HPI: Patient is a 30 year old with a history of neurogenic bladder secondary to likely MS (in the process of a diagnosis) with suspected DESD Today they present to [facility] for a history and physical for the above surgery. This is a virtual visit. The visit was conducted using [employer] video visit. It required patient-provider interaction for the medical decision making as documented below. I have communicated my name and active licensure. The patient's identity and physical location were verified at the time of this visit. Either the patient or their legal fuels sales representative has been informed of the risks and benefits of and alternatives to treatment through a remote evaluation and consents to proceed with the evaluation remotely. REVIEW OF SYSTEMS: General: No weight loss, malaise or fevers. Neurological: Positive for: headaches. Respiratory: No history of current cough or dyspnea, or pneumonia in the past 6 weeks. No history of respiratory/pulmonary symptoms or problems. Cardiovascular: No history of HTN requiring medication, no history of angina, CHF, DE, cardiac surgery or stents. Denies rest pain, gangrene or revascularization/amput ation for PVD. No history of cardiovascular symptoms or problems. GI: No history of GI symptoms or problems. No history of esophageal varices, recent ascites, or ETOH greater than 2 drinks per day. : See HPI. No history of dysuria, frequency or incontinence, stones or chronic kidney disease. No difficulty urinating, nocturia > 1 time per night or hematuria. MANUFACTURE SPECIALIST: 2022 hysterectomy +ovaries intact. Negative for abnormal vaginal bleeding, abnormal vaginal discharge. Endocrine: No history of diabetes. Has not taken steroids within the past 30 days. No history of endocrinological symptoms or problems. Hematology: No history of bleeding or clotting disorder. Patient is not (more content not included)... [facility] CNOVon 03-09-2025 CNOV Office Visit (UROLAV ) SINIA LOCKWOOD ([id number]) 1995 F Date Time Provider Department 03/09/25 3:15 PM NURSE UROL [facility] REJ UROLAV During your visit today, we recorded the following information about you: Shruti Malone RN 03/09/2025 4:10 PM Signed [facility] Patient ID with two (2) identifiers verified by: Shruti Malone RN Allergies reviewed and updated: Yes Current pain intensity is: 0 on a 0-10 pain scale. Any concerns about safety in the home/falls: Not at risk for falls REASON FOR VISIT: Catheter Change:Suprapubic Procedure: Extra glydo given prior to ortiz removal. The Suprapubic indwelling ortiz was removed without difficulty. The new 16 F straight ortiz was inserted using sterile technique. The balloon was inflated to 7cc with sterile water. Irrigated with approximately 60cc NS, clear/yellow urine returned. Catheter attached to overnight bag and secured to right thigh with rubén strap. Patient supplied clean/dry dressing for stoma, placed by patient with assistance from significant other. The patient tolerated the procedure well. urine noted in bag prior to patient leaving exam room. Comments: homegoing supplies given to patient Plan:Return on 03/28 for surgery Shruti Malone RN Electronically signed Allergies As of Date: 03/09/2025 Noted Allergy Reaction LATEX 11/01/2024 4 - Hives PENICILLINS 11/01/2024 4 - Hives PROPOLIS (BEE GLUE) 11/01/2024 9 - Itching Date Reviewed: 03/09/2025 Reviewed by: Shruti Malone, RN - Fully Assessed Reason for Visit: Nurse Visit [792] Cmt: SPT change Primary Visit Diagnosis:Neurogenic bladder [N31.9] Prescriptions as of 03/09/2025 - DULoxetine (CYMBALTA) 30 mg capsule Take 1 capsule by mouth two times a day. Problem List As Of Date 03/09/2025 Noted Resolved Migraine without aura and without status migrai*12/07/2024 Encounter Status:Closed by SHRUTI MALONE on 03/09/25 [facility] 03-06-2025 CNPN Telephone (UROLST) SINAI LOCKWOOD ([id number]) 1995 F Date Time Provider Department 03/06/25 [facility] CASTANON UROLST During your visit today, we recorded the following information about you: Mely Baig 03/06/2025 10:41 AM Signed Patient needs an appt to replace her super pubic catheter. It needs to be done this week. She can be reached at [phone]. Lucina Pierre LPN 03/08/2025 2:24 PM Signed Spoke to patient, SPT is draining. Output adequate. Denies fever chills. Last SPT change was 01/27/25. Patient scheduled for [place] 03/09/25 at 3:15 Allergies As of Date: 03/06/2025 Noted Allergy Reaction LATEX 11/01/2024 4 - Hives PENICILLINS 11/01/2024 4 - Hives PROPOLIS (BEE GLUE) 11/01/2024 9 - Itching Date Reviewed: 01/11/2025 Reviewed by: Lakshmi Malone MA - Fully Assessed Reason for Visit: Appointment [186] Prescriptions as of 03/08/2025 - DULoxetine (CYMBALTA) 30 mg capsule Take 1 capsule by mouth two times a day. Problem List As Of Date 03/06/2025 Noted Resolved Migraine without aura and without status migrai*12/07/2024 Encounter Status:Closed by LUCINA PIERRE on 03/08/25 [facility] Provider Letteron 03-06-2025 Provider Letter Provider Letter [address] [place] [address] March 06, 2025 SINAI LOCKWOOD [address] [place] [address] [place] [address] : 1995 To Whom It May Concern, Please excuse above patient from work. Date of Illness: From: 02/28/2025 To: 05/21/2025 May Return to Work On: 05/21/2025 Sincerely, Bebeto Carty NP [facility] Ambulatory Visit Summaryon 0 02-28-2025 Ambulatory Visit Summary Ambulatory Visit Summary SINAI LOCKWOOD :1995 Visit Date:02/28/2025 Ambulatory Visit Instructions Your Diagnosis Body mass index (BMI) of 19 or less in adult Never used tobacco Neurogenic bladder Bladder spasm Nerve disorder Your Care Team Attending Physician - IVET LAWLER Primary Care Physician - IVET LAWLER This Is Your Medications List acetaminophen-oxycodone (Percocet 5 mg-325 mg oral tablet) duloxetine (duloxetine 30 mg oral delayed release capsule) oxybutynin (oxybutynin 5 mg Tab) Procedures Performed Cystoscopy (09/05/2024), Cystoscopy (12/02/2021), Cystourethroscopy with dilation of urethral stricture (07/24/2020), Cystoscopy (2019), History of tonsillectomy, Hysterectomy, Laparoscope, Laser uterosacral nerve ablation, AUDI - Laser uterosacral nerve ablation. Discharge Vitals Heart Rate (Peripheral) 65 Respiratory Rate 18 Blood Pressure 120/76 Height 165 cm Height 65 in Weight 54.1 kg Weight 119.27 lb BMI 19.87 Medications What How Much When Why Instructions Unchanged acetaminophen-oxycodone (Percocet 5 mg-325 mg oral tablet) 1 Tablets By Mouth 2 times a day Neurogenic bladder Unchanged duloxetine (duloxetine 30 mg oral delayed release capsule) 1 Capsules By Mouth 2 times a day Neurogenic bladder Unchanged oxybutynin (oxybutynin 5 mg Tab) 1 Tablets By Mouth 4 times a day as needed for for urinary discomfort Bladder pain Allergies Latex (Hives) penicillin (Hives) Problems Ongoing - Any problem that you are currently receiving treatment for. Adverse reaction to COVID-19 vaccine Arm skin lesion, right Asymptomatic microscopic hematuria Bladder pain Bladder spasm BMI 22.0-22.9, adult BMI 23.0-23.9, adult BV (bacterial vaginosis) Endometriosis ESBL (extended spectrum beta-lactamase) producing bacteria infection Gross hematuria Incomplete bladder emptying Interstitial cystitis Musculoskeletal disorder involving upper trapezius muscle Myofascial muscle pain Nerve disorder Nerve pain Neurogenic bladder Non-smoker Non-tobacco user Nonsmoker OAB (overactive bladder) Pelvic floor dysfunction Rectal bleeding Sinusitis Smoker Suprapubic catheter Urinary retention UTI (urinary tract infection) Vaginal yeast infection Vomiting Historical - Any problem that you are no longer receiving treatment for. Endometriosis Interstitial cystitis Seizure Urinary retention Patient Survey You may receive a survey via text or e-mail asking about your office visit. Please share your experience with us by completing your survey. We appreciate your feedback and thank you for choosing us for your care. Patient Portal You may access all of your results and other medical record information on our secure patient portal. If you are not signed up for this yet, please contact [employer] at [phone] to get signed up today. Language Information Language assistance services are available as needed. [facility] Family Medicine Office/Clini c Noteon 02-28-2025 Family Medicine Office/Clinic Note Family Medicine Office/Clinic Note Chief Complaint Disability paper work HPI Staff Here For: To have disability paperwork filled out for work; will bring the papers Concerns: none History of Present Illness Sinai is a 30 year old female who presents for a routine fu for disability paperwork. I completed new paperwork for her today. 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 She is having 2 procedures done in mar and apr to stimulate the sacral nerve to try to get her to be able to urinate again on her own. She will have many restrictions at that time. I will keep her off work for 1 month following the second procedure. She will fu with me thereafter. Staff HPI reviewed and accurate. Review of Systems PHQ Score Initial Depression Screen Score: 0 SCORE Physical Exam Vitals & Measurements HR: 65(Peripheral) RR: 18 BP: 120/76 SpO2: 94% HT: 65 in HT: 165 cm WT: 119.27 lb WT: 54.1 kg BMI: 19.87 suprapubic catheter General: alert, no acute distress ENMT: TM's clear, oral mucosa moist, no pharyngeal erythema or exudate Cardiovascular: regular rate and rhythm, normal peripheral perfusion Respiratory: Lungs CTA, respirations non labored Extremities: no deformity, no trauma Neurological: oriented x 4, LOC appropriate for age, CN II-XII intact, motor strength equal & normal bilaterally, sensation equal & normal bilaterally, speech normal Assessment/Plan 1. Neurogenic bladder (N31.9: Neuromuscular dysfunction of bladder, unspecified) pending surgery in mar and apr paperwork completed to keep patient off work until mid Nov will see her after 2nd procedure in apr pain well controlled on current regimen - remain on percocet for now 2. Bladder spasm (N32.89: Other specified disorders of bladder) continue current regimen refills sent 3. Nerve disorder (G58.9: Mononeuropathy, unspecified) continue current regimen refills sent 4. Body mass index (BMI) of 19 or less in adult (Z68.1: Body mass index [BMI] 19.9 or less, adult) stable 5. Never used tobacco (Z78.9: Other specified health status) stable Follow-up No qualifying data available Problem List/Past Medical History Ongoing Adverse reaction to COVID-19 vaccine Arm skin lesion, right Asymptomatic microscopic hematuria Bladder pain Bladder spasm BMI 22.0-22.9, adult BMI 23.0-23.9, adult BV (bacterial vaginosis) Endometriosis ESBL (extended spectrum beta-lactamase) producing bacteria infection Gross hematuria Incomplete bladder emptying Interstitial cystitis Musculoskeletal disorder involving upper trapezius muscle Myofascial muscle pain Nerve disorder Nerve pain Neurogenic bladder Non-smoker Non-tobacco user Nonsmoker OAB (overactive bladder) Pelvic floor dysfunction Rectal bleeding Sinusitis Smoker Suprapubic catheter Urinary retention UTI (urinary tract infection) Vaginal yeast infection Vomiting Historical Endometriosis Interstitial cystitis Seizure Urinary retention Procedure/Surgical History Cystoscopy (09/05/2024), Cystoscopy (12/02/2021), Cystourethroscopy with dilation of urethral stricture (07/24/2020), Cystoscopy (2019), History of tonsillectomy, Hysterectomy, Laparoscope, Laser uterosacral nerve ablation, AUDI - Laser uterosacral nerve ablation. Medications duloxetine 30 mg oral delayed release capsule, 30 mg= 1 cap(s), Oral, BID oxybutynin 5 mg Tab, 5 mg= 1 tab(s), Oral, QID, PRN, 4 refills Percocet 5 mg-325 mg oral tablet, 1 tab(s), Oral, BID Allergies Latex (Hives) penicillin (Hives) Social History Alcohol - Denies Alcohol Use, 12/17/2020 Past. Beer. 1-2 times per month., 12/25/2024 Never., 05/19/2024 Substance Abuse - Denies Substance Abuse, 08/30/2024 Never., 09/18/2024 Never., 05/19/2024 Tobacco - Medium Risk, 08/30/2024 Never (less than 100 in lifetime) Tobacco Use:., 02/28/2025 Never (less than 100 in lifetime) Tobacco Use:. Never Smokeless Tobacco Use:. Household tobacco concerns: No., 01/31/2025 Family History MS - Multiple sclerosis: Aunt and Aunt. Immunizations Vaccine Date Status Comments influenza virus vaccine, inactivated - Not Given Patient Refuses influenza virus vaccine, inactivated - Not Given Patient Refuses pt siick today influenza virus vaccine, inactivated - Not Given Patient Refuses SARS-CoV-2 mRNA (tobelindanameran 5y-11y) vac - Not Given Postpone due to refusal [facility] Comment on above: Result Comment: Elec tronically Signed By: LOGAN GERMAN, IVET\.br\Date and Time Signed: 02/28/25 13:30 EDT Family Medicine Office/Clini c Noteon 02-06-2025 Family Medicine Office/Clinic Note Family Medicine Office/Clinic Note Chief Complaint ER f/u HPI Staff ER followup: Hospital: [facility] [place] Visit date: 01/27/25 Symptoms the patient presented with: Initial visit complaining of cath leaking and discomfort was started on Cipro. Came back later due to cath falling out and needed it replaced. Current concerns: Pt states not doing great but better then this weekend Pt was put on Cipro and is helping better then the other antibiotic. History of Present Illness Sinai is a 30 year old female who presents for ED fu. She started experiencing severe bladder spasms at home and eventually bleeding from her suprapubic site. The catheter eventually fell out at home and she reported to the ED for replacement and severe pain. She was started on cipro and oxybutnin while in the ED and ortiz replaced with balloon overfilled to 10cc. Since being in the ED, she has been in severe pain in her bladder. The spasms seem to be somewhat better with the oxybutnin, however, her catheter is not drainage well, her abdomen is bloated, and her urine output is low. I gave her a sterile syringe and she pulled back on the balloon and removed 3cc of fluid. As soon as the balloon was deflated 3cc, she had an extensive amount of urine output in her bag and in the catheter tubing, and her abdomen deflated as well. She felt much more comfortable after getting the catheter situated and balloon deflated somewhat. She is still pending several procedures and tests per [facility] for her bladder - including a nerve stimulator placement for her bladder in hopes her bladder will resume working. She reports she was feeling much more comfortable with the PRN use of percocet for her severe pain, however, her family has made her feel like a drug addict and does not want her on the medication (her mother and aunt are RNs). She lives with her and 2 step daughters. Her has no issue with her being on pain medication and would prefer it at this time. We had a long discussion regarding pain medication and condition control vs self control. She has not been asking for early refills or taking her prn medications outside of needing it for pain when needed. I am going to restart her pain medication. OARRS reviewed. Staff HPI reviewed and accurate. Review of Systems PHQ Score Initial Depression Screen Score: 0 SCORE Physical Exam Vitals & Measurements HR: 75(Peripheral) BP: 100/72 SpO2: 98% HT: 65 in HT: 165 cm WT: 118.609 lb WT: 53.8 kg BMI: 19.76 suprapubic catheter site is clean and dry. clear yellow urine eventually drains into ortiz bag after deflating balloon by 3cc. obvious bladder spasms and severe pain and grimacing during a spasm. tearful Assessment/Plan 1. Bladder pain (R39.89: Other symptoms and signs involving the genitourinary system) percocet prn severe pain fu 3 m 2. Neurogenic bladder (N31.9: Neuromuscular dysfunction of bladder, unspecified) continue with [facility] 3. Suprapubic catheter (Z93.59: Other cystostomy status) draining well at this time continue to monitor consider starting HH 4. Bladder spasm (N32.89: Other specified disorders of bladder) continue oxybutnin 5. UTI (urinary tract infection) (N39.0: Urinary tract infection, site not specified) continue cipro Follow-up No qualifying data available Problem List/Past Medical History Ongoing Adverse reaction to COVID-19 vaccine Arm skin lesion, right Asymptomatic microscopic hematuria Bladder pain Bladder spasm BMI 22.0-22.9, adult BMI 23.0-23.9, adult BV (bacterial vaginosis) Endometriosis ESBL (extended spectrum beta-lactamase) producing bacteria infection Gross hematuria Incomplete bladder emptying Interstitial cystitis Musculoskeletal disorder involving upper trapezius muscle Myofascial muscle pain Nerve disorder Nerve pain Neurogenic bladder Non-smoker Non-tobacco user Nonsmoker OAB (overactive bladder) Pelvic floor dysfunction Rectal bleeding Sinusitis Smoker Suprapubic catheter Urinary retention UTI (urinary tract infection) Vaginal yeast infection Vomiting Historical Endometriosis Interstitial cystitis Seizure Urinary retention Procedure/Surgical History Cystoscopy (09/05/2024), Cystoscopy (12/02/2021), Cystourethroscopy with dilation of urethral stricture (07/24/2020), Cystoscopy (2019), History of tonsillectomy, Hysterectomy, Laparoscope, Laser uterosacral nerve ablation, AUDI - Laser uterosacral nerve ablation. Medications Cipro 500 mg Tab, 500 mg= 1 tab(s), Oral, BID duloxetine 30 mg oral delayed release capsule, 30 mg= 1 cap(s), Oral, BID Miralax 3350 17 gram packet, 17 gm, Oral, Daily, PRN oxybutynin 5 mg Tab, 5 mg= 1 tab(s), Oral, QID, PRN, 4 refills Percocet 5 mg-325 mg oral tablet, 1 tab(s), Oral, q6hr Allergies Latex (Hives) penicillin (Hives) Social History Alcohol - Denies Alcohol Use, 12/17/2020 Past. Beer. 1-2 times per month., 12/25/2024 Never., 05/19/2024 Substance Abuse - Denies Subs (more content not included)... [facility] Comment on above: Result Comment: Elec tronically Signed By: IVET LAWLER\.br\Date and Time Signed: 02/06/25 21:38 EDT Ambulatory Visit Summaryon 0 01-31-2025 Ambulatory Visit Summary Ambulatory Visit Summary SINAI LOCKWOOD :1995 Visit Date:01/31/2025 Ambulatory Visit Instructions Your Diagnosis Bladder pain Neurogenic bladder Your Care Team Attending Physician - IVET LAWLER Primary Care Physician - IVET LAWLER This Is Your Medications List acetaminophen-oxycodone (Percocet 5 mg-325 mg oral tablet) ciprofloxacin (Cipro 500 mg Tab) duloxetine (duloxetine 30 mg oral delayed release capsule) oxybutynin (oxybutynin 5 mg Tab) polyethylene glycol 3350 (Miralax 3350 17 gram packet) Procedures Performed Cystoscopy (09/05/2024), Cystoscopy (12/02/2021), Cystourethroscopy with dilation of urethral stricture (07/24/2020), Cystoscopy (2019), History of tonsillectomy, Hysterectomy, Laparoscope, Laser uterosacral nerve ablation, AUDI - Laser uterosacral nerve ablation. Discharge Vitals Heart Rate (Peripheral) 75 Blood Pressure 100/72 Height 165 cm Height 65 in Weight 53.8 kg Weight 118.609 lb BMI 19.76 Medications What How Much When Why Instructions Changed oxybutynin (oxybutynin 5 mg Tab) 1 Tablets By Mouth 4 times a day as needed for for urinary discomfort Bladder pain Pickup at [facility] Unchanged acetaminophen-oxycodone (Percocet 5 mg-325 mg oral tablet) 1 Tablets By Mouth Every 6 hours Neurogenic bladder Pickup at [facility] Unchanged ciprofloxacin (Cipro 500 mg Tab) 1 Tablets By Mouth 2 times a day Unchanged duloxetine (duloxetine 30 mg oral delayed release capsule) 1 Capsules By Mouth 2 times a day Neurogenic bladder Unchanged polyethylene glycol 3350 (Miralax 3350 17 gram packet) 17 Gram By Mouth Every day as needed for Constipation Pharmacy Information [facility]: [address] [place] [id number] [phone] Allergies Latex (Hives) penicillin (Hives) Problems Ongoing - Any problem that you are currently receiving treatment for. Adverse reaction to COVID-19 vaccine Arm skin lesion, right Asymptomatic microscopic hematuria Bladder pain Bladder spasm BMI 22.0-22.9, adult BMI 23.0-23.9, adult BV (bacterial vaginosis) Endometriosis ESBL (extended spectrum beta-lactamase) producing bacteria infection Gross hematuria Incomplete bladder emptying Interstitial cystitis Musculoskeletal disorder involving upper trapezius muscle Myofascial muscle pain Nerve disorder Nerve pain Neurogenic bladder Non-smoker Non-tobacco user Nonsmoker OAB (overactive bladder) Pelvic floor dysfunction Rectal bleeding Sinusitis Smoker Urinary retention UTI (urinary tract infection) Vaginal yeast infection Vomiting Historical - Any problem that you are no longer receiving treatment for. Endometriosis Interstitial cystitis Seizure Urinary retention Patient Survey You may receive a survey via text or e-mail asking about your office visit. Please share your experience with us by completing your survey. We appreciate your feedback and thank you for choosing us for your care. Patient Portal You may access all of your results and other medical record information on our secure patient portal. If you are not signed up for this yet, please contact [employer] at [phone] to get signed up today. Language Information Language assistance services are available as needed. [facility] C Urineon 01-29-2025 Bacteria identified Cx Nom (U) Microbiology PROCEDURE: Urine Culture [R1] SOURCE: U Cath BODY SITE: COLLECTED DATE/TIME: 01/27/2025 11:38 EDT RECEIVED DATE/TIME: 01/27/2025 12:56 EDT START DATE/TIME: 01/27/2025 12:56 EDT FREE TEXT SOURCE: Antony Askew DO, DO, John FINAL REPORTS Final Report [] Verified Date/Time: 01/29/2025 10:28 EDT 40,000 cfu/ml Escherichia coli ESBL SUSCEPTIBILITY RESULTS ____ LEGEND: S=Susceptible, N/R=Not Reported, Blank=Data not available, or drug not advisable or tested, I=Intermediate, ESBL=Extended spectrum beta-lactamase, R=Resistant, TFG=Thymidine-dependent strain, RANJEET=Beta-lactamase positive, PATRICIA=mcg/m;(mg/L), S*=Predicted susceptible interp, R*=Predicted resistant interp ___ ECESBL Antibiotic PATRICIA Dilutn PATRICIA Interp Ampicillin >16 R* Ampicillin/ 16/8 I Sulbactam Cefazolin >16 R* Cefepime >16 R* Ceftazidime/ <=8 S Avibactam Ceftriaxone >2 ESBL Cefuroxime >16 R* Ciprofloxacin <=0.25 S Ertapenem <=0.5 S Gentamicin >8 R Levofloxacin <=0.5 S Meropenem <=1 S Nitrofurantoin <=32 S Piperacillin/ <=8 S Tazobactam Tetracycline >8 R Tobramycin 8 I Trimethoprim/ >2/38 R Sulfa Performing Locations R1: This test was performed at: [facility], [address] [place] [address], [phone] , [place], Normal [facility] Comment on above: Performed By: #### [id number] #### [facility] [address] [place] [address] UA with Cult Rflxon 01-30-20 25 UA Spec Desc Catheter Normal [facility] Comment on above: Result Comment: [place] gorge to Minicath specimen 01/29/2025 08:37 CSS Performed By: #### [id number] #### [facility] [address] [place] [address] ED Clinical Summaryon 2024 ED Clinical Summary ED Clinical Summary [address] [address] ED Clinical Summary Person Information Name: SINAI LOCKWOOD [facility] Age: 30 Years : 1995 Sex: Female Language: Panamanian PCP: IVET LAWLER Marital Status: Visit Id: Visit Reason: Catheter check; CATHETER JUST CAME OUT Speciality: Acuity: 3 Enc Type: Emergency Med Service: Emergency Arrival: 01/27/2025 17:55:29 Discharge: 01/27/2025 19:01:33 LOS: 000 01:06 Checkin: 01/27/2025 17:55:29 Checkout: 01/27/2025 19:01:33 Dispo Type: Home (Routine DC) EVENTS: Event Name Event Status Request Date/Time Start Date/Time Complete Date/Time Arrive Complete 01/27/2025 17:55:29 01/27/2025 17:55:29 01/27/2025 17:55:29 Document Home Meds Request 01/27/2025 17:55:29 Triage Complete 01/27/2025 17:55:29 01/27/2025 18:08:15 01/27/2025 18:08:15 Bed Assign Complete 01/27/2025 17:58:26 01/27/2025 17:58:26 01/27/2025 17:58:26 Dr Exam Complete 01/27/2025 17:58:26 01/27/2025 18:02:42 01/27/2025 18:02:42 RN Exam Complete 01/27/2025 17:58:26 01/27/2025 18:56:23 01/27/2025 18:56:23 Registration Complete 01/27/2025 18:00:20 01/27/2025 18:00:20 01/27/2025 18:00:20 Reg Complete Request 01/27/2025 18:00:20 Reg Bed Request Complete 01/27/2025 18:00:20 01/27/2025 18:00:20 01/27/2025 18:00:20 Registration Request 01/27/2025 18:02:42 Meds Admin Complete 01/27/2025 18:19:16 01/27/2025 18:30:38 Discharge Complete 01/27/2025 18:20:10 01/27/2025 19:01:40 01/27/2025 19:01:40 Transfer Complete 01/27/2025 19:01:40 01/27/2025 19:01:40 01/27/2025 19:01:40 ADDRESS: [address] [place] [address] [facility] [id number] PHYS DOC NOTES: MEDICAL INFORMATION: Prescriptions Given: [facility], [address] [place], [place] [id number], [phone] oxybutynin (oxybutynin 5 mg Tab) 1 Tablets By Mouth 3 times a day as needed for urinary discomfort. Refills: 0. Medications to Continue with No Changes Other Medications acetaminophen-oxycodone (Percocet 5 mg-325 mg oral tablet) 1 Tablets By Mouth every 6 hours. Refills: 0. acetaminophen-oxycodone (Percocet 5 mg-325 mg oral tablet) 1 Tablets By Mouth every 6 hours for 3 Days. Refills: 0. ciprofloxacin (Cipro 500 mg Tab) 1 Tablets By Mouth 2 times a day. Refills: 0. duloxetine (duloxetine 30 mg oral delayed release capsule) 1 Capsules By Mouth 2 times a day. Refills: 0. polyethylene glycol 3350 (Miralax 3350 17 gram packet) 17 Gram By Mouth every day as needed Constipation. Refills: 0. tolterodine (tolterodine 4 mg Cap-ER) 1 Capsules By Mouth every day. Refills: 0. PATIENT EDUCATION INFORMATION: Instructions: Suprapubic Catheter Replacement Follow up: With: Address: When: Your urologist In 3 days 01/30/2025 With: Address: When: BEBETO CARTY In 3 days DIAGNOSIS: Complication, blocked suprapubic catheter Normal [facility] ED Clinical Summary ED Clinical Summary [place] [id number] ED Clinical Summary Person Information Name: SINAI LOCKWOOD [place] Age: 30 Years : 1995 Sex: Female Language: Panamanian PCP: IVET LAWLER Marital Status: Visit Id: Visit Reason: Catheter check; CATHETER SITE PAIN, CATHETER ISSUE, PER PATIENT, POSSIBLY INFECTED Speciality: Acuity: 4 Enc Type: Emergency Med Service: Emergency Arrival: 01/27/2025 11:04:30 Discharge: 01/27/2025 12:22:31 LOS: 000 01:18 Checkin: 01/27/2025 11:04:30 Checkout: 01/27/2025 12:22:31 Dispo Type: Home (Routine DC) EVENTS: Event Name Event Status Request Date/Time Start Date/Time Complete Date/Time Arrive Complete 01/27/2025 11:04:30 01/27/2025 11:04:30 01/27/2025 11:04:30 Document Home Meds Request 01/27/2025 11:04:30 Triage Complete 01/27/2025 11:04:30 01/27/2025 11:11:52 01/27/2025 11:11:52 Bed Assign Complete 01/27/2025 11:07:14 01/27/2025 11:07:14 01/27/2025 11:07:14 Dr Exam Complete 01/27/2025 11:07:14 01/27/2025 11:08:38 01/27/2025 11:08:38 RN Exam Complete 01/27/2025 11:07:14 01/27/2025 11:45:53 01/27/2025 11:45:53 Registration Complete 01/27/2025 11:08:38 01/27/2025 11:16:25 01/27/2025 12:16:45 Pending Labs Complete 01/27/2025 11:23:26 01/27/2025 11:52:44 Lab Cancel 01/27/2025 11:23:26 01/27/2025 11:52:44 Patient Care Request 01/27/2025 11:23:26 Pending Labs Collected 01/27/2025 11:52:02 01/27/2025 11:52:02 Lab Collected 01/27/2025 11:52:02 01/27/2025 11:52:02 Discharge Complete 01/27/2025 12:16:09 01/27/2025 12:22:38 01/27/2025 12:22:38 Reg Complete Request 01/27/2025 12:16:45 Reg Bed Request Complete 01/27/2025 12:16:46 01/27/2025 12:16:46 01/27/2025 12:16:46 Transfer Complete 01/27/2025 12:22:38 01/27/2025 12:22:38 01/27/2025 12:22:38 ADDRESS: [address] [place] [address] CASEY Erwin [facility] [id number] PHYS DOC NOTES: MEDICAL INFORMATION: Prescriptions Given: [facility], [address] [place], [place] [id number], [phone] ciprofloxacin (Cipro 500 mg Tab) 1 Tablets By Mouth 2 times a day. Refills: 0. Medications to Continue Taking That Have Changed [facility], [address] [place], [place] [id number], [phone] START: acetaminophen-oxycodone (Percocet 5 mg-325 mg oral tablet) 1 Tablets By Mouth every 6 hours for 3 Days. Refills: 0. Other Medications START: acetaminophen-oxycodone (Percocet 5 mg-325 mg oral tablet) 1 Tablets By Mouth every 6 hours. Refills: 0. Medications to Continue with No Changes Other Medications duloxetine (duloxetine 30 mg oral delayed release capsule) 1 Capsules By Mouth 2 times a day. Refills: 0. polyethylene glycol 3350 (Miralax 3350 17 gram packet) 17 Gram By Mouth every day as needed Constipation. Refills: 0. tolterodine (tolterodine 4 mg Cap-ER) 1 Capsules By Mouth every day. Refills: 0. PATIENT EDUCATION INFORMATION: Instructions: Follow up: With: Address: When: Your urologist In 3 days 01/30/2025 With: Address: When: BEBETO CARTY In 3 days DIAGNOSIS: Suprapubic catheter dysfunction; UTI (urinary tract infection) Normal [facility] ED Note-Physicianon 01-28-20 25 ED Note-Physician ED Note-Physician Basic Information Time Seen: Antony Singh DO 01/27/2025 18:02 Chief Complaint pt had suprapubic cath fall out. spasms in bladder History of Present Illness 30 female presents emergency department having complication with her suprapubic catheter. Patient was just seen here by myself in the emergency department today with some discomfort. She was treated with Cipro and given medication for pain. When she went home she was still having some spasms in her bladder she sat on the toilet in order to help see if this would help relieve some of the discomfort when the suprapubic catheter came out. Patient came in today requesting reinsertion. No other aggravating or relieving factors no other associated symptoms no other prior treatments or complaints. Family: Reviewed and noncontributory Social: lives at home Review of systems negative unless otherwise specified in the HPI. Physical Exam Vitals & Measurements T: 37 ???C(Oral) HR: 121(Peripheral) RR: 22 BP: 145/107 SpO2: 97% HT: 165 cm WT: 51 kg BMI: 18.73 Vital Signs reviewed and noted. General: Alert, no acute distress, patient resting comfortably Skin: warm, intact, no pallor noted Head: Normocephalic, atraumatic Eye: Normal conjunctiva Cardiac: Normal peripheral perfusion Respiratory: No acute distress Musculoskeletal: No deformity, full ROM. Abdomen: Soft nontender nondistended. There is stoma from the patient's previous suprapubic catheter placement and the catheter has been removed. Neurological: alert and oriented, normal sensory and motor observed. Psychiatric: Cooperative Procedure Patient did state that she had a latex allergy therefore we were able to find a latex free silicone suprapubic catheter 16 Slovak. We were able to insert this in the patient did experience some discomfort but ultimately tolerated this procedure well. Immediately upon entering the urinary bladder urine came out of the Ortiz catheter confirming placement. We did inflate the balloon with 10 mL of a flush. Patient is then treated with intramuscular morphine and Toradol for pain control and also started on oxybutynin. She is discharged home on oxybutynin as well and follow-up with urology in the outpatient setting. Assessment/Plan Complication, blocked suprapubic catheter (T83.090A: Other mechanical complication of cystostomy catheter, initial encounter) Orders: acetaminophen-oxycodone , 1 tab(s), Oral, q6hr for 3 day(s), 10 tab(s), Refill(s) 0, [facility], 165, cm, 01/27/25 11:11:00 EDT, Height/Length Dosing, 51, kg, 01/27/25 11:11:00 EDT, Weight Dosing ciprofloxacin, 500 mg = 1 tab(s), Oral, BID, # 14 tab(s), Refills(s) 0, Pharmacy: [facility], 165, cm, 01/27/25 11:11:00 EDT, Height/Length Dosing, 51, kg, 01/27/25 11:11:00 EDT, Weight Dosing ketorolac, 60 mg = 2 mL, Injection, IntraMuscular, Once, Stop date 01/27/25 18:18:00 EDT, STAT, Start date 01/27/25 18:18:00 EDT, 01/27/25 18:18:00 EDT morphine, 8 mg = 2 mL, Injection, IntraMuscular, Once, Stop date 01/27/25 18:18:00 EDT, STAT, Start date 01/27/25 18:18:00 EDT, 01/27/25 18:18:00 EDT oxybutynin, 5 mg = 1 tab(s), Tab-ER, Oral, Once, Stop date 01/27/25 18:18:00 EDT, STAT, Start date 01/27/25 18:18:00 EDT, 01/27/25 18:18:00 EDT oxybutynin, 5 mg = 1 tab(s), Oral, TID, PRN for urinary discomfort, # 30 tab(s), Refills(s) 0, Pharmacy: [facility], 165, cm, 01/27/25 18:08:00 EDT, Height/Length Dosing, 51, kg, 01/27/25 18:08:00 EDT, Weight Dosing Bladder Scan UA with Cult Rflx Urine Culture Disposition Plan Discharge Prescription List Prescriptions Cipro 500 mg Tab, 500 mg= 1 tab(s), Oral, BID oxybutynin 5 mg Tab, 5 mg= 1 tab(s), Oral, TID, PRN Percocet 5 mg-325 mg oral tablet, 1 tab(s), Oral, q6hr Follow-up With When Contact Information Your urologist In 3 days 01/30/2025 EDT Additional Instructions: BEBETO CARTY In 3 days Additional Instructions: Patient Education Suprapubic Catheter Replacement Problem List/Past Medical History Ongoing Adverse reaction to COVID-19 vaccine Arm skin lesion, right Asymptomatic microscopic hematuria Bladder pain Bladder spasm BMI 22.0-22.9, adult BMI 23.0-23.9, adult BV (bacterial vaginosis) Endometriosis ESBL (extended spectrum beta-lactamase) producing bacteria infection Gross hematuria Incomplete bladder emptying Interstitial cystitis Musculoskeletal disorder involving upper trapezius muscle Myofascial muscle pain Nerve disorder Nerve pain Neurogenic bladder Non-smoker Non-tobacco user Nonsmoker OAB (overactive bladder) Pelvic floor dysfunction Rectal bleeding Sinusitis Smoker Urinary retention UTI (urinary tract infection) Vaginal yeast infection Vomiting Historical Endometriosis Interstitial cystitis Seizure Urinary retention Procedure/Surgical History Cystoscopy (09/05/2024), Cystoscopy (12/02/2021), Cystourethroscopy with dilation of urethral stri (more content not included)... Normal [facility] Comment on above: Result Comment: Elec tronically Signed By: Antony Singh DO\.br\Date and Time Signed: 01/27/25 18:22 EDT ED Note-Physician ED Note-Physician Basic Information Time Seen: Antony Singh DO 01/27/2025 11:08 Chief Complaint cath replaced 2 weeks ago. pain around catheter. on nitrofurantoin. for uti since yesterday History of Present Illness 30 female presents emergency department with concerns about her Ortiz catheter. Patient's been having ongoing issue since September being followed by urology at the [facility]. Patient states that she had suprapubic catheter placement about 2 weeks ago and over these last couple of days has had some discomfort with the catheter. She states that she is still getting urine into the bag but is having a little bit of leakage of urine around the catheter itself and maybe even through the urethra. She states that she had a urinalysis that was done yesterday there was concerns for UTI and therefore she was prescribed Macrobid just yesterday. Patient states that she is still experiencing this discomfort which is ultimately what brought her to the emergency room today. No other aggravating or relieving factors no other associated symptoms no other prior treatments or complaints. Family: Reviewed and noncontributory Social: lives at home Review of systems negative unless otherwise specified in the HPI. Physical Exam Vitals & Measurements T: 36.8 ???C(Oral) HR: 74(Peripheral) RR: 16 BP: 115/76 SpO2: 100% HT: 165 cm WT: 51 kg BMI: 18.73 General: The patient appears well and in no apparent distress. Patient is resting comfortably on cart. Skin: Warm, dry, no pallor noted. Incision site of the suprapubic catheter is clean, dry, intact I do not see any redness or pus or drainage no abscess. Head: Normocephalic, atraumatic Neck: No JVD Eye: PERRLA, EOMI ENT: Moist mucus membranes Cardiovascular: Regular rate normal peripheral perfusion Respiratory: No respiratory distress no accessory muscle use no obvious audible wheezing Chest Wall: no deformity Musculoskeletal: normal ROM, no deformity, no swelling GI: Soft no obvious distention. No rebound or rigidity. No guarding. No tenderness. Appropriate tenderness to palpation around that suprapubic region given that patient is postop here. Wound description above. Neurological: A&O moves all extremities equal strength and symmetry. Cranial nerves grossly intact as tested Psychiatric: Cooperative and appropriate Medical Decision Making Urinalysis positive for infection. Patient was a started on Macrobid yesterday. I did log into clinic sink and I was able to see the patient's records but I could not see a culture results of this must still be pending. The question becomes is the patient experiencing this discomfort because of the infection has not been enough time for her to be on the Macrobid or does she need something with broader coverage. We had a long conversation about this and at this point it is a bit of guess work given that we do not have the culture results back. We will ask her to discontinue the Macrobid we will prescribe her Cipro which she has taken without difficulty in the past and was sensitive on the previous culture from earlier in January. She is to follow with her urology team. We did verify that the catheter here is working appropriately and flushing. There was no evidence of bladder retention here. Patient is comfortable with this plan will be given a prescription for Percocet for severe breakthrough pain as well. Assessment/Plan Suprapubic catheter dysfunction (T83.010A: Breakdown (mechanical) of cystostomy catheter, initial encounter) Ordered: acetaminophen-oxycodone , 1 tab(s), Oral, q6hr for 3 day(s), 10 tab(s), Refill(s) 0, [facility], 165, cm, 01/27/25 11:11:00 EDT, Height/Length Dosing, 51, kg, 01/27/25 11:11:00 EDT, Weight Dosing UTI (urinary tract infection) (N39.0: Urinary tract infection, site not specified) Ordered: acetaminophen-oxycodone , 1 tab(s), Oral, q6hr for 3 day(s), 10 tab(s), Refill(s) 0, [facility], 165, cm, 01/27/25 11:11:00 EDT, Height/Length Dosing, 51, kg, 01/27/25 11:11:00 EDT, Weight Dosing Orders: ciprofloxacin, 500 mg = 1 tab(s), Oral, BID, # 14 tab(s), Refills(s) 0, Pharmacy: [facility], 165, cm, 01/27/25 11:11:00 EDT, Height/Length Dosing, 51, kg, 01/27/25 11:11:00 EDT, Weight Dosing Bladder Scan UA with Cult Rflx Urinary Catheter Irrigation Urine Culture Disposition Plan Discharge Prescription List Prescriptions Cipro 500 mg Tab, 500 mg= 1 tab(s), Oral, BID Percocet 5 mg-325 mg oral tablet, 1 tab(s), Oral, q6hr Follow-up With When Contact Information Your urologist In 3 days 01/30/2025 EDT Additional Instructions: BEBETO CARTY In 3 days Additional Instructions: Problem List/Past Medical History Ongoing Adverse reaction to COVID-19 vaccine Arm skin lesion, right Asymptomatic microscopic hematuria Bladder pain Bladder spasm BMI 22.0-22.9, adult BMI 23.0-23.9, adult BV (bacterial vaginosis) Endometriosis ESBL (extended spectrum beta (more content not included)... Normal [facility] Comment on above: Result Comment: Elec tronically Signed By: Antony Singh DO\.br\Date and Time Signed: 01/27/25 12:18 EDT ED Patient Education Noteon 01-27-2025 ED Patient Education Note ED Patient Education Note Normal [facility] ED Patient Summaryon 025 ED Patient Summary ED Patient Summary [place] [id number] Patient Discharge Instructions Person Information Name: SINAI LOCKWOOD Age: 30 Years Arrival Date: 01/27/2025 17:55:29 Discharge Diagnosis: Complication, blocked suprapubic catheter Primary Care Physician: IVET LAWLER Provider Information Primary Provider: Antony Singh DO Advanced Meter Supervisor:None The exam and treatment you received in the Emergency Department were for an urgent problem and are not intended as complete care. It is important that you follow up with a doctor, nurse practitioner, or physician???s retail event and sales assistant for ongoing care. If your symptoms become worse or you do not improve as expected and you are unable to reach your usual health care provider, you should return to the Emergency Department. We are available 24 hours a day. SINAI LOCKWOOD has been given the following list of patient education materials, prescriptions and follow-up instructions: Follow-up Instructions: With: Address: When: Your urologist In 3 days 01/30/2025 With: Address: When: BEBETO CARTY In 3 days In the event that this physician does not participate in your insurance network, please consult with your insurance company to find a nearby participating provider. Patient Education Materials: Suprapubic Catheter Replacement A MESSAGE TO ALL PATIENTS REGARDING OPIOIDS PRESCRIPTION OPIOIDS: WHAT YOU NEED TO KNOW Prescription opioids can be used to help relieve hrjllqyi-sa-luqejy pain and are often prescribed following a surgery or injury, or for certain health conditions. These medications can be an important part of the treatment but also come with serious risks. It is important to work with your healthcare provider to make sure you are getting the safest, most effective care. WHAT ARE THE RISKS AND SIDE EFFECTS OF OPIOID USE? Prescription opioids carry serious risks of addiction and overdose, especially with prolonged use. An opioid overdose, often marked by slowed breathing, can cause sudden . The use of prescription opioids can have a number of side effects as well, even when taken as directed: ??? Tolerance???meaning you might need to take more of the medication for the same pain relief ??? Physical dependence???meaning you have symptoms of withdrawal when a medication is stopped ??? Increased sensitivity to pain ??? Constipation ??? Nausea, vomiting, and dry mouth ??? Sleepiness and dizziness ??? Confusion ??? Depression ??? Low levels of testosterone that can result in lower sex drive, energy, and strength ??? Itching and sweating RISKS ARE GREATER WITH: ??? History of drug misuse, substance use disorder, or overdose ??? Mental health conditions (such as depression or anxiety) ??? Sleep apnea ??? Older age (65 years and older) ??? Avoid alcohol while taking prescription opioids. Also, unless specifically advised by your health care provider, medications to avoid include: ??? Benzodiazepines (such as Xanax or Valium) ??? Muscle relaxants (such as Soma or Flexeril) ??? Hypnotics (such as Ambien or Lunesta) ??? Other prescription opioids KNOW YOUR OPTIONS Talk to your health care provider about ways to manage your pain that don???t involve prescription opioids. Some of these options may actually work better and have fewer risks and side effects. Options may include: ??? Pain relievers such as acetaminophen, ibuprofen, and naproxen ??? Some medication that are also used for depression or seizures ??? Physical therapy and exercise ??? Cognitive behavioral therapy, a psychological, goal-directed approach, in which patients learn how to modify physical, behavioral, and emotional triggers of pain and stress. IF YOU ARE PRESCRIBED OPIOIDS FOR PAIN: ??? Never take opioids in greater amounts or more often than prescribed. ??? Follow up with your primary health care provider. o Work together to create a plan on how to manage your pain. o Talk about ways to help manage your pain that don???t involve prescription opioids. o Talk about any and all concerns and side effects. ??? Help prevent misuse and abuse o Never sell or share prescription opioids. o Never use another person???s prescription opioids. ??? Store prescription opioids in a secure place and out of reach of others (this may include visitors, children, friends, and family). ??? Safely dispose of unused prescription opioids: Find your community drug take-back program or your pharmacy mail-back program, or flush them down the toilet, following guidance from the Food and Drug Administration (www.fda.gov/Drugs/Reso urcesForYou). ??? Visit www.cdc.gov/drugoverdos e to learn about the risks of opioids abuse and overdose. ??? If you believe you may be struggling with addiction, tell your health healthcare applications analyst (more content not included)... Normal [facility] ED Patient Summary ED Patient Summary [place] [id number] Patient Discharge Instructions Person Information Name: SINAI LOCKWOOD Age: 30 Years Arrival Date: 01/27/2025 11:04:30 Discharge Diagnosis: Suprapubic catheter dysfunction; UTI (urinary tract infection) Primary Care Physician: IVET LAWLER Provider Information Primary Provider: Antony Singh DO Advanced Meter Supervisor:None The exam and treatment you received in the Emergency Department were for an urgent problem and are not intended as complete care. It is important that you follow up with a doctor, nurse practitioner, or physician???s retail event and sales assistant for ongoing care. If your symptoms become worse or you do not improve as expected and you are unable to reach your usual health care provider, you should return to the Emergency Department. We are available 24 hours a day. SINAI LOCKWOOD has been given the following list of patient education materials, prescriptions and follow-up instructions: Follow-up Instructions: With: Address: When: Your urologist In 3 days 01/30/2025 With: Address: When: BEBETO CARTY In 3 days In the event that this physician does not participate in your insurance network, please consult with your insurance company to find a nearby participating provider. Patient Education Materials: A MESSAGE TO ALL PATIENTS REGARDING OPIOIDS PRESCRIPTION OPIOIDS: WHAT YOU NEED TO KNOW Prescription opioids can be used to help relieve lkpxpauu-co-plmysx pain and are often prescribed following a surgery or injury, or for certain health conditions. These medications can be an important part of the treatment but also come with serious risks. It is important to work with your healthcare provider to make sure you are getting the safest, most effective care. WHAT ARE THE RISKS AND SIDE EFFECTS OF OPIOID USE? Prescription opioids carry serious risks of addiction and overdose, especially with prolonged use. An opioid overdose, often marked by slowed breathing, can cause sudden . The use of prescription opioids can have a number of side effects as well, even when taken as directed: ??? Tolerance???meaning you might need to take more of the medication for the same pain relief ??? Physical dependence???meaning you have symptoms of withdrawal when a medication is stopped ??? Increased sensitivity to pain ??? Constipation ??? Nausea, vomiting, and dry mouth ??? Sleepiness and dizziness ??? Confusion ??? Depression ??? Low levels of testosterone that can result in lower sex drive, energy, and strength ??? Itching and sweating RISKS ARE GREATER WITH: ??? History of drug misuse, substance use disorder, or overdose ??? Mental health conditions (such as depression or anxiety) ??? Sleep apnea ??? Older age (65 years and older) ??? Avoid alcohol while taking prescription opioids. Also, unless specifically advised by your health care provider, medications to avoid include: ??? Benzodiazepines (such as Xanax or Valium) ??? Muscle relaxants (such as Soma or Flexeril) ??? Hypnotics (such as Ambien or Lunesta) ??? Other prescription opioids KNOW YOUR OPTIONS Talk to your health care provider about ways to manage your pain that don???t involve prescription opioids. Some of these options may actually work better and have fewer risks and side effects. Options may include: ??? Pain relievers such as acetaminophen, ibuprofen, and naproxen ??? Some medication that are also used for depression or seizures ??? Physical therapy and exercise ??? Cognitive behavioral therapy, a psychological, goal-directed approach, in which patients learn how to modify physical, behavioral, and emotional triggers of pain and stress. IF YOU ARE PRESCRIBED OPIOIDS FOR PAIN: ??? Never take opioids in greater amounts or more often than prescribed. ??? Follow up with your primary health care provider. o Work together to create a plan on how to manage your pain. o Talk about ways to help manage your pain that don???t involve prescription opioids. o Talk about any and all concerns and side effects. ??? Help prevent misuse and abuse o Never sell or share prescription opioids. o Never use another person???s prescription opioids. ??? Store prescription opioids in a secure place and out of reach of others (this may include visitors, children, friends, and family). ??? Safely dispose of unused prescription opioids: Find your community drug take-back program or your pharmacy mail-back program, or flush them down the toilet, following guidance from the Food and Drug Administration (www.fda.gov/Drugs/Reso urcesForYou). ??? Visit www.cdc.gov/drugoverdos e to learn about the risks of opioids abuse and overdose. ??? If you believe you may be struggling with addiction, tell your health healthcare applications analyst and ask for g (more content not included)... Normal [facility] UA with Cult Rflxon 01-28-20 25 Color (U) Light-Yellow Normal Yellow [facility] Comment on above: Result Comment: Micr oscopic readings are only performed on those samples that meet specific criteria set forth by [facility]. Performed By: #### 4 [id number] #### [facility] [address] [place] [address] Glucose (U) [Mass/Vol] Negative Normal Negative [facility] Comment on above: Performed By: #### 4 [id number] #### [facility] [address] [place] [address] Ketones Ql (U) Negative Normal Negative [facility] Comment on above: Performed By: #### 4 [id number] #### [facility] [address] [place] [address] UA Blood Negative Normal Negative [facility] Comment on above: Performed By: #### 4 [id number] #### [facility] [address] [place] [address] UA Bacteria Trace Normal Trace [facility] Comment on above: Performed By: #### 4 [id number] #### [facility] [address] [place] [address] UA Clarity Clear Normal Clear [facility] Comment on above: Performed By: #### 4 [id number] #### [facility] [address] [place] [address] UA Leuk Est 75 Eleni/uL Abnormal Negative [facility] Comment on above: Performed By: #### 4 [id number] #### [facility] [address] [place] [address] UA Mucous 1+ CD:[id number] Abnormal Negative [facility] Comment on above: Performed By: #### 4 [id number] #### [facility] [address] [place] [address] UA Nitrite 2+ mg/dL Abnormal Negative [facility] Comment on above: Performed By: #### 4 [id number] #### [facility] [address] [place] [address] UA pH 5.5 Invalid Interpretation Code 5.0-9.0 [facility] Comment on above: Performed By: #### 4 [id number] #### [facility] [address] [place] [address] UA Protein Negative Normal Negative [facility] Comment on above: Performed By: #### 4 [id number] #### [facility] [address] [place] [address] UA RBC 4-20 Abnormal 0-3 [facility] Comment on above: Performed By: #### 4 [id number] #### [facility] [address] [place] [address] UA Spec Grav 1.026 Invalid Interpretation Code 1.005-1.030 [facility] Comment on above: Performed By: #### 4 [id number] #### [facility] [address] [place] [address] UA Squam Epithelial 3-4 Invalid Interpretation Code [facility] Comment on above: Performed By: #### 4 [id number] #### [facility] [address] [place] [address] UA Urobilinogen Negative Normal Negative [facility] Comment on above: Performed By: #### 4 [id number] #### [facility] [address] [place] [address] UA WBC 6-15 Abnormal 0-5 [facility] Comment on above: Performed By: #### 4 [id number] #### [facility] [address] [place] [address] Urobilinogen (U) [Mass/Vol] Negative Normal Negative [facility] Comment on above: Performed By: #### 4 [id number] #### [facility] [address] [place] [address] UA Spec Desc Clean Catch Normal [facility] Comment on above: Performed By: #### 4 [id number] #### [facility] [address] [place] [address] Bacteria Ur Culton 5 Bacteria identified Cx Nom (U) ORGANISM ID: 1 >=100,000 CFU/ml Escherichia coli Extended-spectrum beta-lactamase (ESBL) production detected in this isolate. ESBL producing strains are considered resistant to all cephalosporins, penicillins, and aztreonam. ORGANISM ID: 1 (ESCHERICHIA COLI) ANTIBIOTIC INTERPRETATION PATRICIA STATUS REFERENCE RANGE Ampicillin R >=32 F Susceptible <=8 , Intermediate >8 , Resistant >16 Cefazolin R >=64 F Susceptible 0-16 , Intermediate <0 or >16 , Resistant >16 For uncomplicated urinary tract infections, cefazolin results can be used to predict susceptibility or resistance to cephalexin. Ceftriaxone R 32 F Susceptible <=1 , Intermediate >1 , Resistant >=4 Cefepime R F Ertapenem S <=0.5 F Susceptible <=0.5 , Intermediate >.5 , Resistant >1 Meropenem S <=0.25 F Susceptible <=1 , Intermediate >1 , Resistant >2 Gentamicin R >=16 F Susceptible <=2 , Intermediate >2 , Resistant >=8 Tobramycin R 8 F Susceptible <4 , Intermediate >=4 , Resistant >=8 Amikacin S <=2 F Susceptible <8 , Intermediate >=8 , Resistant >=16 Trimeth sulfameth R >=320 F Susceptible <=40 , Resistant >40 Ciprofloxacin S <=0.25 F Susceptible <0.5 , Intermediate >=.5 , Resistant >=1 Nitrofurantoin S <=16 F Susceptible <=32 , Intermediate >32 , Resistant >64 Abnormal [facility] Comment on above: Performed By: #### 6 30-4 ####[facility]REINALDOIA [id number] [place] [id number] [place] CNPLanie 01-26-2025 CNPN Telephone (UROLAV) GILESSINAI ([id number]) 1995 F Date Time Provider Department 01/26/25 ALYSSASINAI ANGELA UROOLEGARIO During your visit today, we recorded the following information about you: Priscilla Gan RN 01/26/2025 8:19 AM Signed Patient calling Had SPT changed 2 weeks ago Has noticed redness, tenderness around site Also began having pain in area with movement since earlier this week Yesterday had some blood and yellow/green drainage with foul odor from around stoma Had to change her dressing twice No fever Urine output has been good Asking for recommendations Patient can be reached at home number, may leave a message GO TO THE EMERGENCY ROOM OR CALL 911 IF: * You develop any new symptoms * Your condition worsens * You are concerned or anxious about your condition for any other reason. If you have any questions, call back. Little Ziegler RN 01/26/2025 9:39 AM Signed Returning phone call to patient regarding symptoms. States purulent/bloody drainage from around stoma. Symptoms started 4-5 days ago. Denies any fevers/chills or issues with constipation. SPT tubing anchored. Good UOP - clear yellow urine. C/o spasms, urethral pain. Had urethral spotting overnight. Chart routed to female urology pool for recommendations. Will update patient accordingly. JIHAN Galicia Ahmed, MD 01/26/2025 11:15 AM Signed Patient contacted, identity confirmed NGB on SPT Complaining of irritative LUTS, burning at urethra and bladder spasms, pain at SPT intrance with somt purulent discharge. Had Positive UC before but was asymptomatic. Informed to do UA and UC, IF UA have signs of UTI can start Macrobid, To use Bacitracin ointment around catheter insertion site. Cultures to be followed. Matteo Snow MD Clinical fellow Matteo Snow MD 01/26/2025 11:15 AM Signed Addended by: MATTEO SNOW on: 01/26/2025 11:15 AM Modules accepted: Orders Allergies As of Date: 01/26/2025 Noted Allergy Reaction LATEX 11/01/2024 4 - Hives PENICILLINS 11/01/2024 4 - Hives PROPOLIS (BEE GLUE) 11/01/2024 9 - Itching Date Reviewed: 01/11/2025 Reviewed by: Lakshmi Malone MA - Fully Assessed Reason for Visit: Catheter Issue [Other] Primary Visit Diagnosis:Acute cystitis without hematuria [N30.00] Order(s):nitrofurantoin macrocrystal (MACRODANTIN) 50 mg capsuleTake 1 capsule by mouth four times daily for 5 days.Disp: 20 capsuleRfl: 0 URINALYSIS, REFLEX MICROSCOPIC [[id number]] Order #: [id number] FUTURE BACTERIAL CULTURE, URINE [SQURCUL] Order #: [id number] FUTURE bacitracin zinc 500 unit/gram ointmentApply to affected area two times a day for 5 days.Disp: 28.4 gRfl: 0 Prescriptions as of 01/26/2025 - nitrofurantoin macrocrystal (MACRODANTIN) 50 mg capsule Take 1 capsule by mouth four times daily for 5 days. - bacitracin zinc 500 unit/gram ointment Apply to affected area two times a day for 5 days. - DULoxetine (CYMBALTA) 30 mg capsule Take 1 capsule by mouth two times a day. Problem List As Of Date 01/26/2025 Noted Resolved Migraine without aura and without status migrai*12/07/2024 Prescriptions ordered this encounter Disp Refills Start End NITROFURANTOIN MACROCRYSTAL 50 MG CA* 20 c* 0 01/26/2025 01/31/2025 Route: PO Sig: Take 1 capsule by mouth four times daily for 5 days. BACITRACIN ZINC 500 UNIT/GRAM TOPICA* 28.4* 0 01/26/2025 01/31/2025 Route: TOP Sig: Apply to affected area two times a day for 5 days. Encounter Status:Closed by LITTLE ZIEGLER on 01/26/25 Normal [facility] URINALYSIS, REFLEX MICROSCOP ICon 01-26-2025 BACTERIA UL 5690.9 uL High Negative [facility] Comment on above: Order Comment: Speci men Type: URINE SPECIMENOrdering Facility: [facility] Address: [address] [place] [address] Performed By: #### L [id number] ####[facility] LABCLIA [id number] [address] [address] [place] Bilirubin Ql (U) Negative Normal Negative [facility] Comment on above: Order Comment: Speci men Type: URINE SPECIMENOrdering Facility: [facility] Address: [address] [place] [address] Performed By: #### L [id number] ####[facility] LABCLIA [id number] [place] [address] [place] Clarity (Unsp spec) Clear Normal Clear [facility] Comment on above: Order Comment: Speci men Type: URINE SPECIMENOrdering Facility: [facility] Address: [address] [place] [address] Performed By: #### L [id number] ####[facility] LABCLIA [id number] [place] [address] [place] Color (U) Yellow Normal Yellow [facility] Comment on above: Order Comment: Speci men Type: URINE SPECIMENOrdering Facility: [facility] Address: [address] [place] [address] Performed By: #### L [id number] ####[facility] LABCLIA [id number] [place] [id number] [place] Epithelial cells LM.HPF (Urine sed) [#/Area] None Seen Normal [facility] Comment on above: Order Comment: Speci men Type: URINE SPECIMENOrdering Facility: [facility] Address: [address] [place] [address] Performed By: #### L [id number] ####[facility]CLIA [id number] [place] [id number] [place] Glucose Test strip (U) [Mass/Vol] Negative Normal Negative [facility] Comment on above: Order Comment: Speci men Type: URINE SPECIMENOrdering Facility: [facility] Address: [address] [place] [address] Performed By: #### L [id number] ####[facility] LABCLIA [id number] [address] [place] [address] [place] Hemoglobin Ql (U) Negative Normal Negative [facility] Comment on above: Order Comment: Speci men Type: URINE SPECIMENOrdering Facility: [facility] Address: [address] [place] [address] Performed By: #### L [id number] ####[facility] LABCLIA [id number] [place] [address] [place] Hyaline casts (Urine sed) [#/Area] 4-10 /LPF Abnormal 0 /LPF [facility] Comment on above: Order Comment: Speci men Type: URINE SPECIMENOrdering Facility: [facility] Address: [address] [place] [address] Performed By: #### L [id number] ####[facility] LABCLIA [id number] [place] [address] [place] Ketones Ql (U) Negative Normal Negative [facility] Comment on above: Order Comment: Speci men Type: URINE SPECIMENOrdering Facility: [facility] Address: [address] [place] [address] Performed By: #### L [id number] ####[facility] LABCLIA [id number] [address], [facility] [place] Leukocyte esterase Test strip Ql (U) 2+ Abnormal Negative [facility] Comment on above: Order Comment: Speci men Type: URINE SPECIMENOrdering Facility: [facility] Address: [address] [place] [address] Performed By: #### L [id number] ####[facility] LABCLIA [id number] [place] [address] [place] Nitrite Ql (U) Positive Abnormal Negative [facility] Comment on above: Order Comment: Speci men Type: URINE SPECIMENOrdering Facility: [facility] Address: [address] [place] [address] Performed By: #### L [id number] ####[facility] LABIA [id number] [place] [address] [place] pH (U) 7.5 [pH] Normal 5.0-8.0 [facility] Comment on above: Order Comment: Speci men Type: URINE SPECIMENOrdering Facility: [facility] Address: [address] [place] [address] Performed By: #### L [id number] ####[facility] LABIA [id number] [place] [address] [place] Protein (U) [Mass/Vol] 1+ Abnormal Negative [facility] Comment on above: Order Comment: Speci men Type: URINE SPECIMENOrdering Facility: [facility] Address: [address] [place] [address] Performed By: #### L [id number] ####[facility] LABIA [id number] [place] [address] [place] RBC LM.HPF (Urine sed) [#/Area] 0-2 /HPF Normal 0-2 /HPF [facility] Comment on above: Order Comment: Speci men Type: URINE SPECIMENOrdering Facility: [facility] Address: [address] [place] [address] Performed By: #### L [id number] ####[facility] LABIA [id number] [place] [id number] [place] Specific gravity (U) [Rel density] 1.018 Normal 1.005-1.030 [facility] Comment on above: Order Comment: Speci men Type: URINE SPECIMENOrdering Facility: [facility] Address: [address] [place] [address] Performed By: #### L [id number] ####[facility] LABIA [id number] [place] [address] [place] Urobilinogen Ql (U) 0.2 EU/dL Normal 0.2-1.0 EU/dL Cl [facility] Comment on above: Order Comment: Speci men Type: URINE SPECIMENOrdering Facility: [facility] Address: [address] [place] [address] Performed By: #### L [id number] ####[facility] LABIA [id number] [place] [address] [place] WBC LM.HPF (Urine sed) [#/Area] /[HPF] Abnormal 0-5 /HPF [facility] Comment on above: Order Comment: Speci men Type: URINE SPECIMENOrdering Facility: [facility] Address: [address] [place] [address] Performed By: #### L [id number] ####[facility] LABIA [id number] [address] [place] Gabriela 01-15-2025 CNPN Telephone (UROCAROLINAN) [facility] ([id number][facility] 1995 F Date Time Provider Department 01/15/25 [facility] During your visit today, we recorded the following information about you: Matteo Snow MD 01/15/2025 10:16 AM Signed The patient was contacted after we received a positive urine culture NGB On SPT. She was due for catheter exchange and urine was sent. Asymptomatic. No need to treat Matteo Snow MD Clinical fellow Allergies As of Date: 01/15/2025 Noted Allergy Reaction LATEX 11/01/2024 4 - Hives PENICILLINS 11/01/2024 4 - Hives PROPOLIS (BEE GLUE) 11/01/2024 9 - Itching Date Reviewed: 01/11/2025 Reviewed by: Lakshmi Malone MA - Fully Assessed Prescriptions as of 01/15/2025 - DULoxetine (CYMBALTA) 30 mg capsule Take 1 capsule by mouth two times a day. Problem List As Of Date 01/15/2025 Noted Resolved Migraine without aura and without status migrai*12/07/2024 Encounter Status:Closed by MATTEO SNOW on 01/15/25 Normal [facility] Bacteria Ur Culton Bacteria identified Cx Nom (U) ORGANISM ID: 1 >=100,000 CFU/ml Escherichia coli Extended-spectrum beta-lactamase (ESBL) production detected in this isolate. ESBL producing strains are considered resistant to all cephalosporins, penicillins, and aztreonam. ORGANISM ID: 1 (ESCHERICHIA COLI) ANTIBIOTIC INTERPRETATION PATRICIA STATUS REFERENCE RANGE Ampicillin R >=32 F Susceptible <=8 , Intermediate >8 , Resistant >16 Cefazolin R >=64 F Susceptible 0-16 , Intermediate <0 or >16 , Resistant >16 For uncomplicated urinary tract infections, cefazolin results can be used to predict susceptibility or resistance to cephalexin. Ceftriaxone R >=64 F Susceptible <=1 , Intermediate >1 , Resistant >=4 Cefepime R F Ertapenem S <=0.5 F Susceptible <=0.5 , Intermediate >.5 , Resistant >1 Meropenem S <=0.25 F Susceptible <=1 , Intermediate >1 , Resistant >2 Gentamicin R >=16 F Susceptible <=2 , Intermediate >2 , Resistant >=8 Tobramycin R 8 F Susceptible <4 , Intermediate >=4 , Resistant >=8 Amikacin S <=2 F Susceptible <8 , Intermediate >=8 , Resistant >=16 Trimeth sulfameth R >=320 F Susceptible <=40 , Resistant >40 Ciprofloxacin S <=0.25 F Susceptible <0.5 , Intermediate >=.5 , Resistant >=1 Nitrofurantoin S <=16 F Susceptible <=32 , Intermediate >32 , Resistant >64 Abnormal [facility] Comment on above: Performed By: #### 6 30-4 ####[facility] LABCLIA [id number] [place] [address] [place] Basic metabolic 2000 panelon 01-11-2025 Anion gap [Moles/Vol] 15 mmol/L Normal 8-15 [place] Comment on above: Order Comment: Speci men Type: BLOOD SPECIMENOrdering Facility: [facility] Address: [address] [place] [address] Performed By: #### 2 4321-2 ####[facility] LABCLIA [id number] [place] [address] [place] Calcium [Mass/Vol] 9.7 mg/dL Normal 8.5-10.2 [facility] Comment on above: Order Comment: Speci men Type: BLOOD SPECIMENOrdering Facility: [facility] Address: [address] [place] [address] Performed By: #### 2 4321-2 ####[facility] LABCLIA [id number] [place] [id number] [place] Chloride [Moles/Vol] 102 mmol/L Normal 98-107 [facility] Comment on above: Order Comment: Speci men Type: BLOOD SPECIMENOrdering Facility: [facility] Address: [address] [place] [address] Performed By: #### 2 4321-2 ####[facility] LABCLIA [id number] [place] [id number] [place] CO2 [Moles/Vol] 21 mmol/L Low 22-30 [facility] Comment on above: Order Comment: Speci men Type: BLOOD SPECIMENOrdering Facility: [facility] Address: [address] [place] [address] Performed By: #### 2 4321-2 ####[facility] LABCLIA [id number] [place] [address] [place] Creatinine [Mass/Vol] 0.64 mg/dL Normal 0.58-0.96 [facility] Comment on above: Order Comment: Speci men Type: BLOOD SPECIMENOrdering Facility: [facility] Address: [address] [place] [address] Performed By: #### 2 4321-2 ####[facility] LABIA [id number] [place] [address] [place] Creatinine and Glomerular filtration rate.predicted panel (S/P/Bld) 124 mL/min/1.73m??? Normal >=60 [facility] Comment on above: Order Comment: Speci men Type: BLOOD SPECIMENOrdering Facility: [facility] Address: [address] [place] [address] Result Comment: Mohini mated Glomerular Filtration Rate (eGFR) is calculated using the 2020 CKD-EPI creatinine equation. This equation utilizes serum creatinine, sex, and age as parameters. The creatinine assay has traceable calibration to isotope dilution-mass spectrometry. Refer to KDIGO guidelines for clinical interpretation. In patients with unstable renal function, e.g. those with acute kidney injury, the eGFR may not accurately reflect actual GFR. Performed By: #### 2 4321-2 ####[facility] LABCLIA [id number] [place] [id number] [place] Glucose [Mass/Vol] 71 mg/dL Low 74-99 [facility] Comment on above: Order Comment: Speci men Type: BLOOD SPECIMENOrdering Facility: [facility] Address: [address] [place] [address] Result Comment: The [place] Diabetes Association (ADA) provides guidance for cutoff values for fasting glucose and random glucose. The ADA defines fasting as no caloric intake for at least 8 hours. Fasting plasma glucose results between 100 to 125 mg/dL indicate increased risk for diabetes (prediabetes). Fasting plasma glucose results greater than or equal to 126 mg/dL meet the criteria for diagnosis of diabetes. In the absence of unequivocal hyperglycemia, results should be confirmed by repeat testing. In a patient with classic symptoms of hyperglycemia or hyperglycemic crisis, random plasma glucose results greater than or equal to 200 mg/dL meet the criteria for diagnosis of diabetes. Reference: Standards of Medical Care in Diabetes 2016, [place] [employer] Association. Diabetes Care. 2016.39(Suppl 1). Performed By: #### 2 4321-2 ####[facility] LABCLIA [id number] [place] [address] [place] Potassium [Moles/Vol] 4.1 mmol/L Normal 3.7-5.1 [place] Comment on above: Order Comment: Speci men Type: BLOOD SPECIMENOrdering Facility: [facility] Address: [address] [place] [address] Performed By: #### 2 4321-2 ####[facility] LABCLIA [id number] [place] [id number] [place] Sodium [Moles/Vol] 138 mmol/L Normal 136-144 [facility] Comment on above: Order Comment: Speci men Type: BLOOD SPECIMENOrdering Facility: [facility] Address: [address] [place] [address] Performed By: #### 2 4321-2 ####[facility] LABCLIA [id number] [place] [id number] [place] Urea nitrogen [Mass/Vol] 18 mg/dL Normal 7-21 [facility] Comment on above: Order Comment: Speci men Type: BLOOD SPECIMENOrdering Facility: [facility] Address: [address] [place] [address] Performed By: #### 2 4321-2 ####[facility] LABIA [id number] [place] [address] [place] CBC panel Auto (Bld)on 01-11 Erythrocyte distribution width (RBC) [Ratio] 12.7 % Normal 11.5-15.0 [facility] Comment on above: Order Comment: Speci men Type: BLOOD SPECIMENOrdering Facility: [facility] Address: [address] [place] [address] Performed By: #### 5 8410-2 ####[facility] [id number] [place] [address] [place] Hematocrit (Bld) [Volume fraction] 41.2 % Normal 36.0-46.0 [facility] Comment on above: Order Comment: Speci men Type: BLOOD SPECIMENOrdering Facility: [facility] Address: [address] [place] [address] Performed By: #### 5 8410-2 ####[facility] [id number] [place] [address] [place] Hemoglobin (Bld) [Mass/Vol] 13.8 g/dL Normal 11.5-15.5 [facility] Comment on above: Order Comment: Speci men Type: BLOOD SPECIMENOrdering Facility: [facility] Address: [address] [place] [address] Performed By: #### 5 8410-2 ####[facility] [id number] [place] [address] [place] MCH (RBC) [Entitic mass] 30.2 pg Normal 26.0-34.0 [facility] Comment on above: Order Comment: Speci men Type: BLOOD SPECIMENOrdering Facility: [facility] Address: [address] [place] [address] Performed By: #### 5 8410-2 ####[facility] LABCLIA [id number] [place] [address] [place] MCHC (RBC) [Mass/Vol] 33.5 g/dL Normal 30.5-36.0 [place] Comment on above: Order Comment: Speci men Type: BLOOD SPECIMENOrdering Facility: [facility] Address: [address] [place] [address] Performed By: #### 5 8410-2 ####[facility] LABIA [id number] [place] [address] [place] MCV (RBC) [Entitic vol] 90.2 fL Normal 80.0-100.0 [facility] Comment on above: Order Comment: Speci men Type: BLOOD SPECIMENOrdering Facility: [facility] Address: [address] [place] [address] Performed By: #### 5 8410-2 ####[facility] LABIA [id number] [place] [address] [place] Nucleated RBC (Bld) [#/Vol] 10*3/uL Normal <0.01 [facility] Comment on above: Order Comment: Speci men Type: BLOOD SPECIMENOrdering Facility: [facility] Address: [address] [place] [address] Performed By: #### 5 8410-2 ####[facility] LABIA [id number] [place] [address] [place] Platelet mean volume (Bld) [Entitic vol] 10.6 fL Normal 9.0-12.7 [facility] Comment on above: Order Comment: Speci men Type: BLOOD SPECIMENOrdering Facility: [facility] Address: [address] [place] [address] Performed By: #### 5 8410-2 ####[facility] LABIA [id number] [place] [address] [place] Platelets (Bld) [#/Vol] 302 10*3/uL Normal 150-400 [facility] Comment on above: Order Comment: Speci men Type: BLOOD SPECIMENOrdering Facility: [facility] Address: [address] [place] [address] Performed By: #### 5 8410-2 ####[facility] [id number] [place] [address] [place] RBC (Bld) [#/Vol] 4.57 10*6/uL Normal 3.90-5.20 [facility] Comment on above: Order Comment: Speci men Type: BLOOD SPECIMENOrdering Facility: [facility] Address: [address] [place] [address] Performed By: #### 5 8410-2 ####[facility] [id number] [place] [address] [place] WBC (Bld) [#/Vol] 8.16 10*3/uL Normal 3.70-11.00 [facility] Comment on above: Order Comment: Speci men Type: BLOOD SPECIMENOrdering Facility: [facility] Address: [address] [place] [address] Performed By: #### 5 8410-2 ####[facility] [id number] [place] [address] [place] CNOVon 01-11-2025 CNOV Office Visit (UROLAV ) SINAI LOCKWOOD ([id number]) 1995 F Date Time Provider Department 01/11/25 4:30 PM SLOPNICK, SINAI UROLAV During your visit today, we recorded the following information about you: Sinai Castanon MD 01/11/2025 5:44 PM Signed [facility] RECONSTRUCTIVE SURGERY HISTORY OF PRESENT ILLNESS: Sinai Lockwood is a 29 year old female here today for a follow up regarding SPT placement with radiology 11/30. She was last seen 12/19, was having vaginal and urethral pain, advised to use overnight bag instead of leg bag. Swabs and culture sent at this time. No improvement with empiric cipro, baclofen suppositories. Macrobid was sent 12/21 and Keflex was sent 12/29 based on culture results. Ucx 12/19 - 1-5k E. Faecalis, <10k rothia mucilaginosa Pt reports improvement in symptoms, pain and drainage around SPT with abx. Now draining well with full size bag. Due for SPT exchange tomorrow with IR. GENERAL REVIEW OF SYSTEMS: GI:SEE HPI GENITOURINARY:SEE HPI HISTORIES: Present Medications: ciprofloxacin HCl (CIPRO) 500 mg tablet Take 1 tablet by mouth every 12 hours. predniSONE (DELTASONE) 10 mg tablet TAKE 4 TABLETS BY MOUTH DAILY FOR 3 DAYS, then 3 TABLETS FOR 3 DAYS, then 2 TABLETS FOR 3 DAYS, then ONE TABLET FOR 3 DAYS DULoxetine (CYMBALTA) 30 mg capsule Take 1 capsule by mouth two times a day. No current facility-administered medications for this visit. Past Family History: FAMILY HISTORY Problem Relation Age of Onset Multiple Sclerosis Other Maternal aunt AND great aunt Past Medical History: PAST MEDICAL HISTORY Diagnosis Date Bladder pain BV (bacterial vaginosis) Dysuria Mononeuropathy Muscle spasm Nerve pain OAB (overactive bladder) Pelvic floor dysfunction Urinary retention Past Surgical History: PAST SURGICAL HISTORY Procedure Laterality Date CYSTOSCOPY 09/05/2024 DILATION OF URETHRAL STRICTURE HYSTERECTOMY 2021 TONSILLECTOMY HX Past Social History: Social History Tobacco Use Smoking status: Never Smokeless tobacco: Never Vaping Use Vaping status: Former Quit date: 11/16/2024 PHYSICAL EXAM: VITAL SIGNS:LMP (LMP Unknown) NAD, well appearing SPT site c/d/I, draining clear yellow urine. SPT balloon deflated of 5ml. With some difficulty, the SPT was removed - ridge at tip. New 16F blue silicone catheter was advanced into the bladder without difficulty and the balloon was inflated with 5cc sterile water. The catheter flushed easily. 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 Will do SPT capping during the trial. R/b discussed, IC signed. Has voiding diary - will send via my chart. All questions and concerns were addressed. Sinai Castanon MD Allergies As of Date: 01/11/2025 Noted Allergy Reaction LATEX 11/01/2024 4 - Hives PENICILLINS 11/01/2024 4 - Hives PROPOLIS (BEE GLUE) 11/01/2024 9 - Itching Date Reviewed: 01/11/2025 Reviewed by: Lakshmi Malone MA - Fully Assessed Reason for Visit: Post-Op Visit [1236] Primary Visit Diagnosis:Retention of urine [R33.9] Other Visit Diagnosis:Suprapubic catheter (HCC) [Z93.59] Prescriptions as of 01/11/2025 - DULoxetine (CYMBALTA) 30 mg capsule Take 1 capsule by mouth two times a day. Problem List As Of Date 01/11/2025 Noted Resolved Migraine without aura and without status migrai*12/07/2024 Medications Discontinued During This Encounter Prescriptions - predniSONE (DELTASONE) 10 mg tablet (Discontinued) TAKE 4 TABLETS BY MOUTH DAILY FOR 3 DAYS, then 3 TABLETS FOR 3 DAYS, then 2 TABLETS FOR 3 DAYS, then ONE TABLET FOR 3 DAYS - ciprofloxacin HCl (CIPRO) 500 mg tablet (Discontinued) Take 1 tablet by mouth every 12 hours. Encounter Status:Closed by SINAI CASTANON on 01/11/25 [facility] Gabriela 01-04-2025 [facility] Telephone (AVXRPR) SINAI LOCKWOOD ([id number]) 1995 F Date Time Provider Department 01/04/25 SALVADOR THOMPSON AVXRPR During your visit today, we recorded the following information about you: Salvador Thompson RN 01/04/2025 10:24 AM Signed RADIOLOGY PROCEDURE INSTRUCTIONS: You are scheduled for a Suprapubic Exchange, on Sunday January 12, 2025 You are to arrive at 12:00 pm and check in at [facility]: Radiology Outpatient Desk [id number]. You can expect to be here for 2-4 hours. Address: [address] [address] Diet: Do not eat any solid food after midnight the night before your procedure. You may drink clear liquids until 11:00 am the day of your procedure, which means black coffee, apple juice, tea, jello, Gatorade, or water only. Medications: Please take prescribed medications such as heart, blood pressure, anti-seizure, and chronic pain medications with a sip of clear liquids. Bring your current medication list. Special concerns: It is okay to shower/bathe the morning of your procedure. There may be bathing restrictions post procedure. Do you have any attached medical devices? No. If yes, the device may need to be removed before entering the procedure room. Do you use CPAP, BIPAP, or oxygen? No Allergies: Allergies reviewed: Yes Do you have a contrast dye allergy? No. Labs: Lab work needs to be drawn? No. Cellar Hand/Transportation: How will you be arriving for your procedure? Private car. If you will be arriving via ambulance or public transportation, please call to discuss. You will need a responsible adult to accompany you to and from the procedure. We will verify your ride home upon arrival. Minors/visitors requiring supervision cannot accompany you unless there is another responsible adult with them. Child and/or dependent care arrangements need to be made. If you need to cancel or reschedule your procedure, please call our air traffic controller: Estella Leon [phone]; 8am - 4pm M-F If you have any additional questions please call: [facility] Radiology nurses desk at [phone] 8am - 4pm M-F. Option 1 Allergies As of Date: 01/04/2025 Noted Allergy Reaction LATEX 11/01/2024 4 - Hives PENICILLINS 11/01/2024 4 - Hives PROPOLIS (BEE GLUE) 11/01/2024 9 - Itching Date Reviewed: 12/19/2024 Reviewed by: Shashi Marcos, RN - Fully Assessed Reason for Visit: Radiology Pre Procedure Instructions [1506] Prescriptions as of 01/04/2025 - ciprofloxacin HCl (CIPRO) 500 mg tablet Take 1 tablet by mouth every 12 hours. - predniSONE (DELTASONE) 10 mg tablet TAKE 4 TABLETS BY MOUTH DAILY FOR 3 DAYS, then 3 TABLETS FOR 3 DAYS, then 2 TABLETS FOR 3 DAYS, then ONE TABLET FOR 3 DAYS - DULoxetine (CYMBALTA) 30 mg capsule Take 1 capsule by mouth two times a day. - baclofen suppository 10 mg (CPD) Use 1 suppository vaginally two times a day as needed. Unwrap and insert one suppository as directed. Problem List As Of Date 01/04/2025 Noted Resolved Migraine without aura and without status migrai*12/07/2024 Encounter Status:Closed by SALVADOR THOMPSON on 01/04/25 Normal [facility] Family Medicine Office/Clini c Noteon 01-03-2025 Family Medicine Office/Clinic Note Family Medicine Office/Clinic Note Chief Complaint Disabilty forms HPI Staff Pt is here to discuss disability forms. History of Present Illness Sinai is a 29 year old female who presents for a FU and for paperwork for continued disability. SHe is working with multiple specialists at [facility] regarding her bladder and endometriosis. She has a suprapubic catheter and she will be getting this changed every month per [facility] until healed or removed entirely. She reports she is pending several procedures and additional tests for her bladder issues. I will extend her disability until mar 16 of this year. As far as she knows she should have all of her surgeries completed by then and be ready to get back to work. She continues with severe bladder spasms, especially during catheter changes, and if tubing gets kinked. Given her scheduled upcoming procedures and multiple appointments, as well as her severe bladder spasms, leg weakness, generalized fatigue, pain, and suprapubic catheter, I would like her to remain off work at this time. She will not be able to focus on healing and getting her bladder to function on it's own again if she is back to work. I have her on PRN Percocet for severe bladder spasm and this does seem to help when she is really having a difficult time. I will send refills on her routine medications as well today. Her paperwork was completed to remain off work. Staff HPI and OARRS reviewed. Review of Systems PHQ Score Initial Depression Screen Score: 0 SCORE Physical Exam Vitals & Measurements HR: 76(Peripheral) BP: 118/85 SpO2: 99% HT: 65 in HT: 165 cm WT: 51.6 kg WT: 113.758 lb BMI: 18.95 suprapubic catheter with leg bag - clear yellow urine noted in bag General: alert, no acute distress ENMT: TM's clear, oral mucosa moist, no pharyngeal erythema or exudate Cardiovascular: regular rate and rhythm, normal peripheral perfusion Respiratory: Lungs CTA, respirations non labored Extremities: no deformity, no trauma Neurological: oriented x 4, LOC appropriate for age, CN II-XII intact, motor strength equal & normal bilaterally, sensation equal & normal bilaterally, speech normal Assessment/Plan 1. Neurogenic bladder (N31.9: Neuromuscular dysfunction of bladder, unspecified) Continue with treatment plan per [facility] paperwork completed for her to remain off work at least until Mar 16. med refills sent 2. Bladder spasm (N32.89: Other specified disorders of bladder) med refills sent continue with [facility] 3. Bladder pain (R39.89: Other symptoms and signs involving the genitourinary system) per [facility] percocet refill today 4. Endometriosis (N80.9: Endometriosis, unspecified) pending additional surgery per [facility] 5. Interstitial cystitis (N30.10: Interstitial cystitis (chronic) without hematuria) per [facility] Follow-up No qualifying data available Problem List/Past Medical History Ongoing Adverse reaction to COVID-19 vaccine Arm skin lesion, right Asymptomatic microscopic hematuria Bladder pain Bladder spasm BMI 22.0-22.9, adult BMI 23.0-23.9, adult BV (bacterial vaginosis) Endometriosis ESBL (extended spectrum beta-lactamase) producing bacteria infection Gross hematuria Incomplete bladder emptying Interstitial cystitis Musculoskeletal disorder involving upper trapezius muscle Myofascial muscle pain Nerve disorder Nerve pain Neurogenic bladder Non-smoker Non-tobacco user Nonsmoker OAB (overactive bladder) Pelvic floor dysfunction Rectal bleeding Sinusitis Smoker Urinary retention UTI (urinary tract infection) Vaginal yeast infection Vomiting Historical Endometriosis Interstitial cystitis Seizure Urinary retention Procedure/Surgical History Cystoscopy (09/05/2024), Cystoscopy (12/02/2021), Cystourethroscopy with dilation of urethral stricture (07/24/2020), Cystoscopy (2019), History of tonsillectomy, Hysterectomy, Laparoscope, Laser uterosacral nerve ablation, AUDI - Laser uterosacral nerve ablation. Medications duloxetine 30 mg oral delayed release capsule, 30 mg= 1 cap(s), Oral, BID Miralax 3350 17 gram packet, 17 gm, Oral, Daily, PRN Percocet 5 mg-325 mg oral tablet, 1 tab(s), Oral, q6hr tolterodine 4 mg Cap-ER, 4 mg= 1 cap(s), Oral, Daily Allergies Latex (Hives) penicillin (Hives) Social History Alcohol - Denies Alcohol Use, 12/17/2020 Past. Beer. 1-2 times per month., 12/25/2024 Never., 05/19/2024 Substance Abuse - Denies Substance Abuse, 08/30/2024 Never., 09/18/2024 Never., 05/19/2024 Tobacco - Medium Risk, 08/30/2024 Never (less than 100 in lifetime) Tobacco Use:. Never Smokeless Tobacco Use:. Household tobacco concerns: No., 12/26/2024 Never (less than 100 in lifetime) Tobacco Use:., 10/07/2024 Family History MS - Multiple sclerosis: Aunt and Aunt. Immunizations Vaccine Date Status Comments influenza virus vaccine, inactivated - Not Given Patient Refuses influenza virus vaccine, inactivated - Not Given Patient Refuses pt vladimir grace (more content not included)... Normal [facility] Comment on above: Result Comment: Elec tronically Signed By: LOGAN GERMAN, IVET\.br\Date and Time Signed: 01/03/25 12:42 EDT Gabriela 12-29-2024 CNPN Telephone (UROLAV) SINAI LOCKWOOD ([id number]) 1995 F Date Time Provider Department 12/29/24 YANETRACHELCOREEN SINAI UROLAV During your visit today, we recorded the following information about you: Priscilla Gan RN 12/29/2024 9:45 AM Signed Patient calling Concerned that she has infection around suprapubic catheter site For past few days area has had tenderness, swelling, redness Today her temperature is 99.7 She also reports some yellow/green drainage with foul odor Catheter has been draining urine, no change in urine output Asking for recommendations Patient can be reached at home number, may leave a message Little Ziegler RN 12/29/2024 10:40 AM Signed Returning phone call to patient regarding SPT symptoms. Patient states she's continuing to have bladder spasms. Feels like her bladder is trying to push out of her vagina . UOP good. Still draining into collection bag. Cleaning stoma site 2-3x/day. Site warm, red, tender, yellow/green drainage. Does not seep through gauze covering stoma site. Chart routed to female urology pool for recommendations. ER precautions given if symptoms worsen. JIHAN Galicia Ashley, RN 12/29/2024 11:03 AM Signed Called and spoke to patient. Updated on abx sent to local pharmacy. Reminded of ER precautions if symptoms worsen. Requested patient keep office posted. Little Ziegler RN Allergies As of Date: 12/29/2024 Noted Allergy Reaction LATEX 11/01/2024 4 - Hives PENICILLINS 11/01/2024 4 - Hives PROPOLIS (BEE GLUE) 11/01/2024 9 - Itching Date Reviewed: 12/19/2024 Reviewed by: Shashi Marcos RN - Fully Assessed Reason for Visit: Catheter Issue [Other] Prescriptions as of 12/29/2024 - cephALEXin (KEFLEX) 500 mg capsule Take 1 capsule by mouth two times a day for 5 days. - ciprofloxacin HCl (CIPRO) 500 mg tablet Take 1 tablet by mouth every 12 hours. - predniSONE (DELTASONE) 10 mg tablet TAKE 4 TABLETS BY MOUTH DAILY FOR 3 DAYS, then 3 TABLETS FOR 3 DAYS, then 2 TABLETS FOR 3 DAYS, then ONE TABLET FOR 3 DAYS - DULoxetine (CYMBALTA) 30 mg capsule Take 1 capsule by mouth two times a day. - baclofen suppository 10 mg (CPD) Use 1 suppository vaginally two times a day as needed. Unwrap and insert one suppository as directed. Problem List As Of Date 12/29/2024 Noted Resolved Migraine without aura and without status migrai*12/07/2024 Encounter Status:Closed by LITTLE ZIEGLER on 12/29/24 [facility] Provider Letteron 12-26-2024 Provider Letter Provider Letter [address] [place] [address] December 26, 2024 SINAI PEGUEROUIAR [address] [place] [address] : 1995 To Whom It May Concern, Please excuse above patient from work. Date of Illness: From: 12/26/2024 To: 03/16/2025 May Return to Work On: unknown at this time Restrictions: unable to work Comments: pending additional tests and procedures Sincerely, Bebeto Carty NP Normal [facility] BACTERIAL VAGINOSIS NAATon 0 12-19-2024 Lactobacillus crispatus+gasseri+anna senii + Gardnerella vaginalis + Atopobium vaginae rRNA MAVERICK+probe Ql (Vag fld) Not detected Normal Not detected [facility] Comment on above: Order Comment: Speci men Type: SWABOrdering Facility: [facility] Address: [address] [place] [address] Performed By: #### C VTV, BVAMP ####[facility] LABCLIA [id number] [place] [address] [place] Bacteria Ur Culton Bacteria identified Cx Nom (U) ORGANISM ID: 1 1,000 - <5,000 CFU/ml Enterococcus faecalis Cephalosporins, clindamycin, and TMP-SMX are not effective for the treatment of enterococcal infections. ORGANISM ID: 2 <1,000 CFU/ml Rothia mucilaginosa (stomatococcus mucilaginosus) No further workup. ORGANISM ID: 1 (ENTEROCOCCUS FAECALIS) ANTIBIOTIC INTERPRETATION PATRICIA STATUS REFERENCE RANGE Ampicillin S <=2 F Susceptible <=8 , Resistant >8 Vancomycin S 2 F Susceptible <=4 , Intermediate >4 , Resistant >16 Nitrofurantoin S <=16 F Susceptible <=32 , Intermediate >32 , Resistant >64 Abnormal [facility] Comment on above: Performed By: #### 6 30-4 ####[facility] LABCLIA [id number] [facility] [address] [place] DAISY/TRICHOMONAS NAATon 0 12-19-2024 C. glabrata RNA MAVERICK+probe Ql (Vag fld) Not detected Normal Not detected [facility] Comment on above: Order Comment: Speci men Type: SWABOrdering Facility: [facility] Address: [address] [place] [address] Performed By: #### C VTV, BVAMP ####[facility] LABCLIA [id number] [address] [place] Daisy sp DNA MAVERICK+probe Ql (Vag fld) Not detected Normal Not detected [facility] Comment on above: Order Comment: Speci men Type: SWABOrdering Facility: [facility] Address: [address] [place] [address] Result Comment: The Daisy species group target includes C. albicans, C. tropicalis, C. parapsilosis, and C. dubliniensis. Performed By: #### C VTV, BVAMP ####[facility] LABIA [id number] [address] [place] T. vaginalis DNA MAVERICK+probe Ql (Unsp spec) Not detected Normal Not detected [facility] Comment on above: Order Comment: Speci men Type: SWABOrdering Facility: [facility] Address: [address] [place] [address] Performed By: #### C VTV, BVAMP ####[facility] LABCLIA [id number] [address] [place] CNOVon 12-19-2024 CNOV Office Visit (UROLAV ) SINAI LOCKWOOD ([id number]) 1995 F Date Time Provider Department 12/19/24 1:00 PM NURSE UROL [facility] REJ UROLAV During your visit today, we recorded the following information about you: Sinai Castanon MD 12/19/2024 1:37 PM Signed Pt with ongoing urethral and vaginal pain with SPT placement. No improvement with empiric cipro, baclofen suppositories. Switch to full bag given poor drainage with leg bag. Urine culture and vaginal swab sent. MD Caitlin Sellers Rachel, RN 12/19/2024 1:37 PM Signed Patient overnight bag which was advised to use at this time instead of the leg bag is draining clear yellow urine. Patients states she has a lot more output with this bag. Dr. Castanon at bedside, swabs and culture sent to lab. Patient advised to continue to use overnight bag to ensure proper bladder emptying. Allergies As of Date: 12/19/2024 Noted Allergy Reaction LATEX 11/01/2024 4 - Hives PENICILLINS 11/01/2024 4 - Hives PROPOLIS (BEE GLUE) 11/01/2024 9 - Itching Date Reviewed: 12/19/2024 Reviewed by: Shashi Marcos RN - Fully Assessed Primary Visit Diagnosis:Vaginal pain [R10.2] Other Visit Diagnosis:Pelvic pain in female [R10.2] Order(s):DAISY/TRICHO MONAS NAAT [SQCVTV] Order #: [id number]. #:[id number] BACTERIAL VAGINOSIS NAAT [SQBVAMP] Order #: [id number]. #:[id number] BACTERIAL CULTURE, URINE [SQURCUL] Order #: [id number]. #:[id number] Prescriptions as of 12/19/2024 - ciprofloxacin HCl (CIPRO) 500 mg tablet Take 1 tablet by mouth every 12 hours. - predniSONE (DELTASONE) 10 mg tablet TAKE 4 TABLETS BY MOUTH DAILY FOR 3 DAYS, then 3 TABLETS FOR 3 DAYS, then 2 TABLETS FOR 3 DAYS, then ONE TABLET FOR 3 DAYS - DULoxetine (CYMBALTA) 30 mg capsule Take 1 capsule by mouth two times a day. - baclofen suppository 10 mg (CPD) Use 1 suppository vaginally two times a day as needed. Unwrap and insert one suppository as directed. Problem List As Of Date 12/19/2024 Noted Resolved Migraine without aura and without status migrai*12/07/2024 Encounter Status:Closed by SHASHI MARCOS on 12/19/24 Normal [facility] Provider Letteron 12-18-2024 Provider Letter Provider Letter [address] [facility] [address] [place] [address] December 18, 2024 SINAI LOCKWOOD [address] [place] [address] : 1995 To Whom It May Concern, Please excuse above patient from work. Date of Illness: From: 12/04/2024 To: 01/15/2025 May Return to Work On: 01/16/2025 Restrictions: unknown at this time Comments: pending additional diagnostic tests and procedures. Sincerely, Bebeto Carty [facility] Telephone (UROLAV) SINAI LOCKWOOD ([id number]) 1995 F Date Time Provider Department 12/11/24 SINAI CASTANON UROMILESV During your visit today, we recorded the following information about you: Inessa Warren, JIHAN 12/11/2024 1:20 PM Signed Patient calling Dr. Castanon regarding suprapubic catheter causing pain in urethra/bladder with movement, urinary leaking, bladder spasms and intermittently cloudy urine. Pain level 8-9/10 scale with movement since insertion 11/30/24. Pain has been worsening due to increased activity level. Is hydrating well and urine is light yellow. Denies fever, chills, body aches or new back pain. Is taking prescribed cipro, prednisone, baclofen. Is also using tylenol and ibuprofen as needed for pain without improvement. Patient phone: [phone] Pharmacy: Joe Perdomo LPN 12/11/2024 1:53 PM Signed Called and spoke to patient Ortiz is anchored properly Denies tugging Draining fine Has not had BM in 2-3 days Advised to take miralax to get bowels moving as this causes all sx she described Patient will call back If sx worsen or do not improve Bess Hernandez, JIHAN 12/18/2024 8:37 AM Signed Patient calling. SPC placed on 11/30/24 Since Wednesday12/15/24 has been experiencing urine and blood from her urethra. Denies clots, toilet water is bright red 2-3 times per day, clear, can see the bottom of the bowl. Catheter is draining well overnight. Less during the day, that's when she has draining from the urethra. Denies fever. Pain is 8/10, sharp Having regular BMs each day, twice daily, had BM this morning. No blood in stools. No vaginal bleeding. No dizziness or lightheadedness, does feel fatigued. Asking for next steps/recommendations? CALL [phone] Opal Orta RN 12/18/2024 9:26 AM Signed Spoke to pt about symptoms. Pt expresses she is currently having 7/10 stabbing/ sharp vaginal urethra pain just standing. The percocet that her pcp has prescribed helps a little bit but there is no position that is comfortable. Pt explained that urine bag looks clear with the occasional clot, nothing that seams concerning to her. However when she goes to the toilet to have a bowel movement or feels like she has a spasm, she sees bright red blood that has not cleared up with hydration since Wednesday. SPT site looks a little puffy around insertions but pt explained that it is healing ok. Pt feels that she empties more with the ON bag than the leg bag. Recommended that pt stay hydrated and to switch to the ON bag during the day to see if that helps with the spasms/emptying. Also scheduled her for a NV 12/19 to troubleshoot further. Will route to Dr. Castanon for any further recommendations. Allergies As of Date: 12/11/2024 Noted Allergy Reaction LATEX 11/01/2024 4 - Hives PENICILLINS 11/01/2024 4 - Hives PROPOLIS (BEE GLUE) 11/01/2024 9 - Itching Date Reviewed: 11/30/2024 Reviewed by: Lizy Lam, JIHAN - Fully Assessed Reason for Visit: suprapubic catheter [Other] Prescriptions as of 12/18/2024 - ciprofloxacin HCl (CIPRO) 500 mg tablet Take 1 tablet by mouth every 12 hours. - predniSONE (DELTASONE) 10 mg tablet TAKE 4 TABLETS BY MOUTH DAILY FOR 3 DAYS, then 3 TABLETS FOR 3 DAYS, then 2 TABLETS FOR 3 DAYS, then ONE TABLET FOR 3 DAYS - DULoxetine (CYMBALTA) 30 mg capsule Take 1 capsule by mouth two times a day. - baclofen suppository 10 mg (CPD) Use 1 suppository vaginally two times a day as needed. Unwrap and insert one suppository as directed. Problem List As Of Date 12/11/2024 Noted Resolved Migraine without aura and without status migrai*12/07/2024 Encounter Status:Closed by JOE WISE on 12/11/24 [facility] CNOVon 12-07-2024 CNOV Office Visit (NEMSLR ) SINAI LOCKWOOD ([id number]) 1995 F Date Time Provider Department 12/07/24 8:00 AM BOLA COOLEY During your visit today, we recorded the following information about you: Pulse Blood pressure Weight 66/minute 112/68 54.4 kg Bola Cooley MD 12/07/2024 9:25 AM Addendum Neurology Outpatient Clinic Progress Note Clinic Preceptor: Amanda Alvarado MD Reason for Evaluation: Evaluation for MS Interval History: -Last seen 11/02/24 -Underwent IR LP c/b CSF leak headache. Resolved with epidural blood patch -Rare intermittent migraine headaches at night but non-disabling (once a week) -Intermittent R anterior upper inner thigh numbness/paresthesia as previously reported (slight improvement) - she notes chronic issues with this since 2019, but notably worsened after recent procedure week of 10/13. -Sometimes difficulty with thigh adduction or prolonged standing. Pain also contributing to limited mobility at times -Some improvement in the past in amitriptyline, gabapentin too sedating. Unclear how duloxetine affecting symptoms but currently titration dose with recent BID dosing change. Mood good -Patient planning on continuing to see Dr. Slopnick for urological care -Recent stopped vaping 2-3 weeks ago. Congratulated patient and encouraged continued cessation -Thoracic spinal imaging imported. Patient attempting to grab EMG/NCS 10/12/24 studies from [facility] Prior HPI: Sinai Lockwood is a left-handed, 29 year old female from [place], [place] who presents to the [facility] outpatient neurology department with a chief complaint of possible MS. Past medical history significant for: -Pelvic pain, possible neuropathy + laser uterosacral nerve ablation, urinary issues, intersitial cystitis, endometriosis s/p laparotomy 2019, urinary retention, bacterial vaginosis, migraine w visual aura, hx tonsillectomy. Long hx pelvic pain + neuropathic pain in R labial region to RLE and R back with inability to walk at times due to pain (not due to weakness). Hysterectomy 2019 for endometriosis (ovaries retained). No hx of unilateral weakness, vision changes >24 hours. Does report lower pelvic mid back squeezing sensation + overall fatigue. Pain described as bladder aching/squeezing along with radiating burning/zapping pain down inward portion of R thigh. However worsened after urological procedure 09/05/2024 Has seen urology with multiple cystoscopies 2019, hydro distension cystoscopy 09/05/2024), cystourethroscopy + dilation of urethral stricture 07/2020. On/off amitriptyline, mirabegron, Tolterodine + baclofen, diazepam suppositories for mixed urinary symptoms. Previously done pelvic floor therapy as well. Currently on amitryptiline, mirabegron + baclofen, diazepam suppositories. Off tolterodine Pt reports new sudden onset of urinary retention started 09/2024 after recent cystoscopy with hydrodistension on 09/05/2024. Had an indwelling ortiz post procedure which was weaned to self catheterization but now back to indwelling ortiz over the past three weeks. Had ortiz catheter twice (now currently in for about 3 weeks). Worsened radiating leg pain with weakness 2/2 pain after urological procedure 09/05/2024 Underwent MRI brain 09/2024 with a non enhancing T2 L frontal subcortical lesion seen. MRI ylymnmmg-yrlgopxl-vdhgt r w/wo late October 2024 w/o enhancement/chronic L5-S1 changes seen.Did have a lumbar MRI w/o in 2020 by [facility]. Maternal hx of MS great aunt, aunt. Underwent MRI brain 09/2024 and MRI xhmkgffn-dyiwqzdc-fmall r w/wo late October 2024.Did have a lumbar MRI w/o in 2020 by [facility]. Had EMG several weeks ago as well for neuropathic pain and specifically testing the pudendal nerve which was reportedly normal. 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 Other neurological issues include intermittent bifrontal headache described as throbbing with visual aura and photo/phonophobia. Since adolescence, used to have worsened nausea/vomitting when younger but improved now. Negative for red flag SNOOP criteria. Happens once a week lasting for several hours. Partially relieved with otc acetaminophen. HPI most recent clinic note by Dr. Pao Macedo 09/18/24 below: CURRENT OUTPATIENT MEDICATIONS Current Outpatient Medications Medication Sig ciprofloxacin HCl (CIPRO) 500 mg tablet Take 1 tablet by mouth every 12 hours. predniSONE (DELTASONE) 10 mg tablet TAKE 4 TABLETS BY MOUTH DAILY FOR 3 DAYS, then 3 TABLETS FOR 3 DAYS, then 2 TABLETS FOR 3 DAYS, then ONE TABLET FOR 3 DAYS baclofen suppository 10 mg (CPD) Use 1 suppository vaginally two times a day as needed. Unwrap and insert one suppository as directed. DULoxetine (CYMBALTA) 30 mg capsule Take 1 capsule by mouth two times a d (more content not included)... [facility] Gabriela 12-06-2024 SHELDONN Telephone (Angio) SINAI LOCKWOOD ([id number]) 1995 F Date Time Provider Department 12/06/24 VANESSA BRYANT During your visit today, we recorded the following information about you: Vanessa Bryant RN 12/06/2024 2:05 PM Signed Interventional Radiology Follow Up Call Attempted to reach Sinai today for follow up from their tube placement. Unable to reach them at this time. Message left with phone number to return the call. Allergies As of Date: 12/06/2024 Noted Allergy Reaction LATEX 11/01/2024 4 - Hives PENICILLINS 11/01/2024 4 - Hives PROPOLIS (BEE GLUE) 11/01/2024 9 - Itching Date Reviewed: 11/30/2024 Reviewed by: Lizy Lam RN - Fully Assessed Reason for Visit: Follow Up [171] Prescriptions as of 12/06/2024 - nitrofurantoin monohydrate and macrocrystal (MACROBID) 100 mg capsule Take 1 capsule by mouth every 12 hours. - baclofen suppository 10 mg (CPD) Use 1 suppository vaginally two times a day as needed. Unwrap and insert one suppository as directed. - DULoxetine (CYMBALTA) 30 mg capsule Take 30mg once daily for 7 days and increase to 30mg twice a day after - DIFLUCAN 150 mg tablet Take 150 mg by mouth. 150 mg = 1 tab(s), Oral, q72hr, # 4 tab(s), Refills(s) 5, Pharmacy: [facility], 154, cm, 10/19/24 12:48:00 EDT, Height/Length Dosing, 56.1, kg, 10/19/24 12:48:00 EDT, Weight Dosing Problem List As Of Date: 12/06/2024 (None) Encounter Status:Closed by VANESSA BRYANT on 12/06/24 [facility] Telephone (Angio) SINAI LOCKWOOD ([id number]) 1995 F Date Time Provider Department 12/06/24 VANESSA BRYANT Angio During your visit today, we recorded the following information about you: Vanessa Bryant RN 12/06/2024 2:53 PM Signed SERVICE DATE: December 06, 2024 SERVICE TIME: 1430 SERVICE: Interventional Radiology IMPRESSION/RECOMMENDATI ONS Sinai was contacted today for follow up s/p placement of Suprapubic catheter. - Suprapubic catheter to gravity drainage with reported good output.Urine is clear. Having bladder spasms will follow up with urology. - Discussed signs and symptoms of infection. - Reviewed how to manage common tube related problems and emergency situations. - Emergency telephone contact information reviewed. - Reviewed dressing change. - Tube care supplies adequate - Routine tube change to be scheduled. Suprapubic Tube / Catheter At Home Care Instructions: Symptoms of an Infection to Watch for Include: Fever Swelling around the suprapubic tube site Increase in redness around the suprapubic tube site Pus Cloudy or foul-smelling urine Call your doctor if you: See signs of infection, such as redness, drainage, foul odor, or swelling at the suprapubic CATHETER site Have a temperature higher than 100.4?F or 38?C. Develop shaking chills. Cloudy or foul-smelling urine. Catheter is not draining and you are not comfortable. See bright red blood in your urine like cranberry juice or darker (some pink-tinged urine is to be expected). Pelvic, abdominal, back or flank pain Notice a foul odor in your urine. Watch for the following (in regards to the nephrostomy tube): Wet dressing Pain in your abdomen, pelvis, back or sides Little or no urine drainage If you have any of the above signs or symptoms, follow these steps: Remove your dressing and check to see if the tube is kinked. If the catheter is kinked, straighten it until fluid begins to flow. Be sure the drainage bag is below the level of the catheter site. Remove bag and gently flush drain with 10 ml NS Care of the Suprapubic Site: Always wash your hands before and after touching the catheter site and emptying the drainage bag. Keep the dressing that is over the catheter site clean and dry. You may have a stitch holding your catheter in place. If the stitch breaks, call your doctor. Always keep the bag below the catheter site to allow proper drainage by gravity, even at night with sleeping. Remove the dressing around the catheter site before you enter the shower. Wash around the catheter site with a washcloth and mild soap and water. Dry the site thoroughly and replace the dressing. Your dressing should be changed every other day or sooner if it becomes wet, soiled, falls off, or unless instructed otherwise. It is easier if someone helps you change the dressing. Change the drainage bag monthly. It is important that the catheter remain in the proper position and does not become kinked. DO NOT swim or soak in water. Supplies or Equipment I Need Gauze, tape, flushes Activity and Exercise: (in regards to the suprapubic catheter) Avoid positions that may cause kinking of the tube. You may resume your normal activities 24 hours after the procedure. Interventional Radiology Appointment Reminders: For routine concerns please call Interventional Radiology nurse triage line [phone], Wednesday - Wednesday 7:30 a.m. - 4 p.m. After hours please call and ask for Interventional Radiology Fellow director of conservation, pager [phone]. In the event of acute symptoms report directly to local emergency department and notify the Department of Interventional Radiology after the fact. Your tube needs to be changed regularly to reduce the risk of infection and for proper drainage. (IR will contact you to arrange for routine exchange) Please contact the Interventional Radiology outpatient scheduling department at [phone] (option 1) if you need to change or reschedule any of these appointments.ge or schedule an appointment with interventional radiology please call scheduling at I spent 15 minutes today with this patient comprising of education and answering questions/concerns. Allergies As of Date: 12/06/2024 Noted Allergy Reaction LATEX 11/01/2024 4 - Hives PENICILLINS 11/01/2024 4 - Hives PROPOLIS (BEE GLUE) 11/01/2024 9 - Itching Date Reviewed: 11/30/2024 Reviewed by: Lizy Lam, JIHAN - Fully Assessed Reason for Visit: Follow Up [171] Prescriptions as of 12/06/2024 - nitrofurantoin monohydrate and macrocrystal (MACROBID) 100 mg capsule Take 1 capsule by mouth every 12 hours. - baclofen suppository 10 mg (CPD) Use 1 suppository vaginally two times a day as needed. Unwrap and insert one suppository as directed. - DULoxetine (CYMBALTA) 30 mg capsule Take 30mg once daily for 7 days and increase (more content not included)... [facility] BRIEF OP NOTon 11-30-2024 BRIEF OP NOT HNO ID: [id number] Author: NICOLAS QUEVEDO MD Service: ? Author Type: Physician Type: Brief Op Note Filed: 11/30/2024 10:24 Note Text: BRIEF OP NOTE LOG ID: [id number] SURGERY/PROCEDURE DATE: 11/30/2024 INCISION/PROCEDURE START TIME: 10:15 AM INCISION CLOSE/PROCEDURE END TIME: 10:23 AM Surgeon(s)/Proceduralis t(s) and Precision Crop Manager(s): Nicolas Quevedo MD -- IR Staff Procedure(s): Suprapubic tube placement Sedation/Anesthesia: Moderate sedation Findings: Successful placement of 16 F Suprapubic tube(s). Estimated Blood Loss: Minimal Specimens: None Complications: None Pre-Op/Pre-Procedure Diagnosis/Indication: MS/Neurogenic bladder Post-Op/Post-Procedure Diagnosis/Indication: Same as pre-procedure SIGNATURE: Nicolas Quevedo MD PATIENT NAME: Sinai Lockwood DATE: November 30, 2024 TIME: 10:24 AM PAGER/CONTACT #: [phone] [facility] 11-30-2024 [facility] Telephone (AVXRPR) GILESSINAI ATKINSON ([id number]) 1995 F Date Time Provider Department 11/30/24 ILDA SMITH AVXRPR During your visit today, we recorded the following information about you: Ilda Smith RN 11/30/2024 2:24 PM Signed Tube Exchange Appointment Request Form Person filling out this form: Ilda Smith RN Date: November 30, 2024 Time: 2:22 PM Patient Name: Sinai Lockwood Patient What type of tube is this? Supra-pubic urinary bladder catheter Does this tube need exchanged? Yes, How many weeks? 6 weeks Per physician direction, does this need to be physician specific? No Does this patient require MARAL? No Per physician, can this exchange be done in the region? [place] / Liz ( [place] ) If the patient has an already existing exchange appointment can that one be cancelled? No Any other pertinent information needed for schedulers? New suprapubic catheter Dianne Araiza 12/01/2024 4:28 PM Signed Due 01/12/2025--- waiting on qgenda Allergies As of Date: 11/30/2024 Noted Allergy Reaction LATEX 11/01/2024 4 - Hives PENICILLINS 11/01/2024 4 - Hives PROPOLIS (BEE GLUE) 11/01/2024 9 - Itching Date Reviewed: 11/30/2024 Reviewed by: Lizy Lam RN - Fully Assessed Reason for Visit: IR Outpatient Tube Appointment Request [[id number]] Prescriptions as of 12/01/2024 - nitrofurantoin monohydrate and macrocrystal (MACROBID) 100 mg capsule Take 1 capsule by mouth every 12 hours. - baclofen suppository 10 mg (CPD) Use 1 suppository vaginally two times a day as needed. Unwrap and insert one suppository as directed. - DULoxetine (CYMBALTA) 30 mg capsule Take 30mg once daily for 7 days and increase to 30mg twice a day after - DIFLUCAN 150 mg tablet Take 150 mg by mouth. 150 mg = 1 tab(s), Oral, q72hr, # 4 tab(s), Refills(s) 5, Pharmacy: [facility], 154, cm, 10/19/24 12:48:00 EDT, Height/Length Dosing, 56.1, kg, 10/19/24 12:48:00 EDT, Weight Dosing Problem List As Of Date: 11/30/2024 (None) Encounter Status:Closed by DIANNE ARAIZA on 12/01/24 [facility] HISTORY PHYSICALon HISTORY PHYSICAL HNO ID: [id number] Author: NICOLAS QUEVEDO MD Service: ? Author Type: Physician Type: H&P Filed: 11/30/2024 09:48 Note Text: UPDATED HISTORY AND PHYSICAL EXAMINATION SERVICE DATE: 11/30/2024 SERVICE TIME: 9:47 AM PHYSICAL EXAM MUST BE COMPLETED ON ADMISSION The History and Physical (completed in the past 30 days) has been reviewed and the patient has been examined. The contents accurately reflect the patient's condition with the following additions or revisions since the HANDP was completed. Examination indicates no changes. This HANDP can be found in the Electronic Medical Record dated 11/07/2024. SIGNATURE: Nicolas Quevedo MD PATIENT NAME: Sinai Lockwood DATE: November 30, 2024 TIME: 9:47 AM [facility] IR SUPRAPUBIC TUBE PLACEMENT on 11-30-2024 IR SUPRAPUBIC TUBE PLACEMENT * * *Final Report* * * DATE OF EXAM: Nov 30 2024 10:28AM [facility] [id number] - IR SUPRAPUBIC TUBE PLACEMENT / PROCEDURE REASON: Urinary retention [R33.9] * * * * Physician Interpretation * * * * PROCEDURE: SUPRAPUBIC CATHETER PLACEMENT Procedural Personnel Attending physician(s): Nicolas Quevedo MD Fellow physician(s): None Resident physician(s): None Advanced practice provider(s): None Medical Student(s): None Pre-procedure diagnosis: Multiple sclerosis Post-procedure diagnosis: Same Indication: Neurogenic bladder Additional clinical history: None PROCEDURE SUMMARY - Target organ: Bladder - Image-guided placement of suprapubic catheter - Additional procedure(s): None PROCEDURE DETAILS: Pre-procedure Consent: Risks, benefits, treatment options, potential complications and personnel to be involved were discussed (including the risks of radiation exposure, contrast and anesthesia administration, and any equipment needed for the procedure to ensure best possible outcome) with the patient and all questions were answered and consent was obtained prior to procedure. Premedicated for contrast allergy: n/a Transfusion of blood products: No Medication reconciliation: The patient's medications and allergies were reviewed in the electronic medical record and reconciled to the proposed procedure/treatment. Palak-procedure discussion: The appropriate elements of the pre-procedure discussion, safety check list and sign-out were performed. Time out: A time out was performed immediately prior to procedure start with the nursing and interventional team, correctly identifying the name, date of , procedure, anatomy (including marking of site and side if applicable), patient position, procedure consent form, relevant diagnostic and radiology test results, antibiotic administration if applicable, safety precautions, and procedure-specific equipment needs. Start of procedure: 1015 End of procedure: 1023 Patient position: Supine Preparation: The site was prepared and draped using all elements of maximal sterile barrier technique including sterile gloves, sterile gown, cap, mask, large sterile sheet, sterile ultrasound probe cover, hand hygiene and cutaneous antisepsis. Antibiotics: None Antibiotic infusion start time: N/A Prophylactic antibiotic administered: None Additional med: None Additional med: None Contrast Contrast agent: OMNIPAQUE 240 Contrast volume (mL): 10 Image Guidance: Fluoroscopic and sonographic guidance with digital image storage RADIATION DOSE: FLUOROSCOPIC RADIATION SUMMARY: Plane A, Air Kerma: 2.0 mGy Dose Area Product (DAP): 235.4 mGy*cm2 Fluoro Time: 1:00 min:sec Radiation dose exceed 3.5 Gy: No If radiation dose exceeded 3.5 Gy, was counseling and instructional brochure provided: N/A Anesthesia/sedation Level of anesthesia/sedation: Moderate sedation (conscious sedation) Anesthesia/sedation administered by: Independent trained observer under attending supervision with continuous monitoring of the patient?s level of consciousness and physiologic status Total intra-service sedation time (minutes): 19 Local anesthesia: 2 % lidocaine Suprapubic catheter placement Local anesthesia was administered. A needle was advanced into the bladder under ultrasound guidance. . A wire was advanced through the needle into the bladder, the track was dilated, and a suprapubic catheter was inserted. Contrast injection was performed. Suprapubic catheter placed: 16 F [place]-tip Findings: Appropriate positioning of the retention balloon within the bladder. External catheter securement: Non-absorbable suture Internal catheter securement: Retention balloon Additional genitourinary system intervention Genitourinary intervention: None Location of intervention: Not applicable Device used: Not applicable Description of intervention: Not applicable Post-intervention findings: Not applicable Additional Details Additional description of procedure: None Equipment details: None Number and Type of Removed Specimens: 0: N/A Estimated blood loss (mL): Less than 10 Standardized report: SIR_GUCatheterPlacement _v3 Complications There were no immediate complications and no other complications. Conclusion The patient was comfortable and was transferred to the recovery room in stable condition. The procedure was performed by the: attending radiologist, without an retail event and sales assistant. The attending radiologist performed the following procedural activities: Total procedure IMPRESSION: Successful placement of 16 F suprapubic catheter as detailed above. PLAN: Catheter may be allowed to drain passively into bag until next catheter exchange. Patient may return in 6 weeks for routine exchange. Attestation Signer name: Nicolas Quevedo MD I attest that I was present for (more content not included)... [facility] IR US NDL ASP/INJ/BX/LOC [facility] 11-30-2024 IR NDL ASP/INJ/BX/LOC GUIDE * * *Final Report* * * DATE OF EXAM: Nov 30 2024 10:28AM [facility] [id number] - IR US NDL ASP/INJ/BX/LOC GUIDE / PROCEDURE REASON: Urinary retention [R33.9] * * * * Physician Interpretation * * * * PROCEDURE: SUPRAPUBIC CATHETER PLACEMENT Procedural Personnel Attending physician(s): Nicolas Quevedo MD Fellow physician(s): None Resident physician(s): None Advanced practice provider(s): None Medical Student(s): None Pre-procedure diagnosis: Multiple sclerosis Post-procedure diagnosis: Same Indication: Neurogenic bladder Additional clinical history: None PROCEDURE SUMMARY - Target organ: Bladder - Image-guided placement of suprapubic catheter - Additional procedure(s): None PROCEDURE DETAILS: Pre-procedure Consent: Risks, benefits, treatment options, potential complications and personnel to be involved were discussed (including the risks of radiation exposure, contrast and anesthesia administration, and any equipment needed for the procedure to ensure best possible outcome) with the patient and all questions were answered and consent was obtained prior to procedure. Premedicated for contrast allergy: n/a Transfusion of blood products: No Medication reconciliation: The patient's medications and allergies were reviewed in the electronic medical record and reconciled to the proposed procedure/treatment. Palak-procedure discussion: The appropriate elements of the pre-procedure discussion, safety check list and sign-out were performed. Time out: A time out was performed immediately prior to procedure start with the nursing and interventional team, correctly identifying the name, date of , procedure, anatomy (including marking of site and side if applicable), patient position, procedure consent form, relevant diagnostic and radiology test results, antibiotic administration if applicable, safety precautions, and procedure-specific equipment needs. Start of procedure: 1015 End of procedure: 1023 Patient position: Supine Preparation: The site was prepared and draped using all elements of maximal sterile barrier technique including sterile gloves, sterile gown, cap, mask, large sterile sheet, sterile ultrasound probe cover, hand hygiene and cutaneous antisepsis. Antibiotics: None Antibiotic infusion start time: N/A Prophylactic antibiotic administered: None Additional med: None Additional med: None Contrast Contrast agent: OMNIPAQUE 240 Contrast volume (mL): 10 Image Guidance: Fluoroscopic and sonographic guidance with digital image storage RADIATION DOSE: FLUOROSCOPIC RADIATION SUMMARY: Plane A, Air Kerma: 2.0 mGy Dose Area Product (DAP): 235.4 mGy*cm2 Fluoro Time: 1:00 min:sec Radiation dose exceed 3.5 Gy: No If radiation dose exceeded 3.5 Gy, was counseling and instructional brochure provided: N/A Anesthesia/sedation Level of anesthesia/sedation: Moderate sedation (conscious sedation) Anesthesia/sedation administered by: Independent trained observer under attending supervision with continuous monitoring of the patient?s level of consciousness and physiologic status Total intra-service sedation time (minutes): 19 Local anesthesia: 2 % lidocaine Suprapubic catheter placement Local anesthesia was administered. A needle was advanced into the bladder under ultrasound guidance. . A wire was advanced through the needle into the bladder, the track was dilated, and a suprapubic catheter was inserted. Contrast injection was performed. Suprapubic catheter placed: 16 F [place]-tip Findings: Appropriate positioning of the retention balloon within the bladder. External catheter securement: Non-absorbable suture Internal catheter securement: Retention balloon Additional genitourinary system intervention Genitourinary intervention: None Location of intervention: Not applicable Device used: Not applicable Description of intervention: Not applicable Post-intervention findings: Not applicable Additional Details Additional description of procedure: None Equipment details: None Number and Type of Removed Specimens: 0: N/A Estimated blood loss (mL): Less than 10 Standardized report: SIR_GUCatheterPlacement _v3 Complications There were no immediate complications and no other complications. Conclusion The patient was comfortable and was transferred to the recovery room in stable condition. The procedure was performed by the: attending radiologist, without an retail event and sales assistant. The attending radiologist performed the following procedural activities: Total procedure IMPRESSION: Successful placement of 16 F suprapubic catheter as detailed above. PLAN: Catheter may be allowed to drain passively into bag until next catheter exchange. Patient may return in 6 weeks for routine exchange. Attestation Signer name: Nicolas Quevedo MD I attest that I was present fo (more content not included)... [facility] NURSING PROGon 11-30-2024 NURSING PROG HNO ID: [id number] Author: SOILA PRADHAN RN Service: Nursing Author Type: Registered Nurse Type: Nursing Progress Note Filed: 12/04/2024 14:31 Note Text: Completed post procedure phone call. Sinai is feeling well and has returned to her baseline diet and activity. She is complaining of uretheral spasms post procedure. Encouraged Sinai to contact her urologist. [facility] NURSING PROG HNO ID: [id number] Author: TERI FITZGERALD RN Service: Radiology Author Type: Registered Nurse Type: Nursing Progress Note Filed: 11/30/2024 09:12 Note Text: PATIENT EDUCATION TOPIC: PROCEDURE / SURGERY: Procedure/Surgery: Suprapubic Catheter Placement PATIENT NAME: Sinai Lockwood PATIENT LOCATION: AV Rad Proc/AV Rad Proc READINESS TO LEARN COGNITIVE ABILITY: Alert and oriented MOTIVATION TO LEARN: Interested FAMILY SUPPORT: High - Very involved in pt care INSTRUCTION PROVIDED TO: Patient and Family member PATIENT LEARNS BEST BY: Written Instruction - Hand-outs Verbal Instruction FACTORS AFFECTING LEARNING: None PHYSICAL LIMITATIONS AFFECTING LEARNING: None LEARNING RESPONSE DIAGNOSIS: ADULT: Neurogenic Bladder PATIENT/FAMILY RESPONSE: Verbalizes understanding of: POST-PROCEDURE INSTRUCTIONS-Correct actions to take to reduce post procedure complications PRE-PROCEDURE INSTRUCTIONS-Correct action to take to follow pre-procedure instructions METHOD OF INSTRUCTION: Written instruction/Handouts Verbal instruction FOLLOW-UP PLAN: Patient instructed to call with any further issues Follow-up with Primary Care INSTRUCTIONAL AIDS USED: NA SUPPLEMENTAL MATERIAL PROVIDED TO PATIENT: Suprapubic catheter and sedation home going instructions sent with patient REFERRAL (RECOMMENDATION): None Electronically Signed By: Teri Fitzgerald [facility] CBC panel Auto (Bld)on 11-28 Erythrocyte distribution width (RBC) [Ratio] 12.0 % Normal 11.5-15.0 [facility] Comment on above: Order Comment: Speci men Type: BLOOD SPECIMENOrdering Facility: [facility] Address: [address] [place] [address] Performed By: #### 5 8410-2 ####[facility] LABCLIA [id number] [place] [address] [place] Hematocrit (Bld) [Volume fraction] 41.6 % Normal 36.0-46.0 [facility] Comment on above: Order Comment: Speci men Type: BLOOD SPECIMENOrdering Facility: [facility] Address: [address] [place] [address] Performed By: #### 5 8410-2 ####[facility] LABCLIA [id number] [place] [address] [place] Hemoglobin (Bld) [Mass/Vol] 14.2 g/dL Normal 11.5-15.5 [facility] Comment on above: Order Comment: Speci men Type: BLOOD SPECIMENOrdering Facility: [facility] Address: [address] [place] [address] Performed By: #### 5 8410-2 ####[facility] LABCLIA [id number] [place] [id number] [place] MCH (RBC) [Entitic mass] 30.4 pg Normal 26.0-34.0 [facility] Comment on above: Order Comment: Speci men Type: BLOOD SPECIMENOrdering Facility: [facility] Address: [address] [place] [address] Performed By: #### 5 8410-2 ####[facility] LABCLIA [id number] [place] [address] [place] MCHC (RBC) [Mass/Vol] 34.1 g/dL Normal 30.5-36.0 [place] Comment on above: Order Comment: Speci men Type: BLOOD SPECIMENOrdering Facility: [facility] Address: [address] [place] [address] Performed By: #### 5 8410-2 ####[facility] LABIA [id number] [place] [address] [place] MCV (RBC) [Entitic vol] 89.1 fL Normal 80.0-100.0 [facility] Comment on above: Order Comment: Speci men Type: BLOOD SPECIMENOrdering Facility: [facility] Address: [address] [place] [address] Performed By: #### 5 8410-2 ####[facility] LABIA [id number] [place] [address] [place] Nucleated RBC (Bld) [#/Vol] 10*3/uL Normal <0.01 [facility] Comment on above: Order Comment: Speci men Type: BLOOD SPECIMENOrdering Facility: [facility] Address: [address] [place] [address] Performed By: #### 5 8410-2 ####[facility] LABIA [id number] [place] [address] [place] Platelet mean volume (Bld) [Entitic vol] 10.5 fL Normal 9.0-12.7 [facility] Comment on above: Order Comment: Speci men Type: BLOOD SPECIMENOrdering Facility: [facility] Address: [address] [place] [address] Performed By: #### 5 8410-2 ####[facility] LABIA [id number] [place] [address] [place] Platelets (Bld) [#/Vol] 300 10*3/uL Normal 150-400 [facility] Comment on above: Order Comment: Speci men Type: BLOOD SPECIMENOrdering Facility: [facility] Address: [address] [place] [address] Performed By: #### 5 8410-2 ####[facility] LABCLIA [id number] [address] [address] [place] RBC (Bld) [#/Vol] 4.67 10*6/uL Normal 3.90-5.20 [facility] Comment on above: Order Comment: Speci men Type: BLOOD SPECIMENOrdering Facility: [facility] Address: [address] [place] [address] Performed By: #### 5 8410-2 ####[facility] LABCLIA [id number] [place] [address] [place] WBC (Bld) [#/Vol] 7.52 10*3/uL Normal 3.70-11.00 [facility] Comment on above: Order Comment: Speci men Type: BLOOD SPECIMENOrdering Facility: [facility] Address: [address] [place] [address] Performed By: #### 5 8410-2 ####[facility] LABIA [id number] [address] [address] [place] Comprehensive metabolic 2000 panelon 11-28-2024 Albumin [Mass/Vol] 4.5 g/dL Normal 3.9-4.9 [facility] Comment on above: Order Comment: Speci men Type: BLOOD SPECIMENOrdering Facility: [facility] Address: [address] [place] [address] Performed By: #### 2 4323-8 ####[facility] LABIA [id number] [place] [id number] [place] ALP [Catalytic activity/Vol] 51 U/L Normal 34-123 [facility] Comment on above: Order Comment: Speci men Type: BLOOD SPECIMENOrdering Facility: [facility] Address: [address] [place] [id number] Performed By: #### 2 4323-8 ####[facility] LABCLIA [id number] [address] [address] [place] ALT [Catalytic activity/Vol] 14 U/L Normal 7-38 [facility] Comment on above: Order Comment: Speci men Type: BLOOD SPECIMENOrdering Facility: [facility] Address: [address] [place] [address] Performed By: #### 2 4323-8 ####[facility] LABCLIA [id number] [place] [id number] [place] Anion gap [Moles/Vol] 12 mmol/L Normal 8-15 [place] Comment on above: Order Comment: Speci men Type: BLOOD SPECIMENOrdering Facility: [facility] Address: [address] [place] [address] Performed By: #### 2 4323-8 ####[facility] LABCLIA [id number] [place] [id number] [place] AST [Catalytic activity/Vol] 19 U/L Normal 13-35 [facility] Comment on above: Order Comment: Speci men Type: BLOOD SPECIMENOrdering Facility: [facility] Address: [address] [place], [place] [id number] Performed By: #### 2 4323-8 ####[facility] LABCLIA [id number] [address] [address] [place] Bilirubin [Mass/Vol] 0.4 mg/dL Normal 0.2-1.3 [facility] Comment on above: Order Comment: Speci men Type: BLOOD SPECIMENOrdering Facility: [facility] Address: [address] [place], [place] [address] Performed By: #### 2 4323-8 ####[facility] LABCLIA [id number] [address] [address] [place] Calcium [Mass/Vol] 9.4 mg/dL Normal 8.5-10.2 [facility] Comment on above: Order Comment: Speci men Type: BLOOD SPECIMENOrdering Facility: [facility] Address: [address] [place] [address] Performed By: #### 2 4323-8 ####[facility] LABCLIA [id number] [facility] [place] [address] [place] Chloride [Moles/Vol] 101 mmol/L Normal 98-107 [facility] Comment on above: Order Comment: Speci men Type: BLOOD SPECIMENOrdering Facility: [facility] Address: [address] [place] [address] Performed By: #### 2 4323-8 ####[facility] LABCLIA [id number] [place] [address] [place] CO2 [Moles/Vol] 25 mmol/L Normal 22-30 [facility] Comment on above: Order Comment: Speci men Type: BLOOD SPECIMENOrdering Facility: [facility] Address: [address] [place] [address] Performed By: #### 2 4323-8 ####[facility] LABCLIA [id number] [place] [address] [place] Creatinine [Mass/Vol] 0.70 mg/dL Normal 0.58-0.96 [place] Comment on above: Order Comment: Speci men Type: BLOOD SPECIMENOrdering Facility: [facility] Address: [address] [place] [address] Performed By: #### 2 4323-8 ####[facility] LABCLIA [id number] [facility] [place] [id number] [place] Creatinine and Glomerular filtration rate.predicted panel (S/P/Bld) 122 mL/min/1.73m??? Normal >=60 [facility] Comment on above: Order Comment: Speci men Type: BLOOD SPECIMENOrdering Facility: [facility] Address: [address] [place] [address] Result Comment: Mohini mated Glomerular Filtration Rate (eGFR) is calculated using the 2020 CKD-EPI creatinine equation. This equation utilizes serum creatinine, sex, and age as parameters. The creatinine assay has traceable calibration to isotope dilution-mass spectrometry. Refer to KDIGO guidelines for clinical interpretation. In patients with unstable renal function, e.g. those with acute kidney injury, the eGFR may not accurately reflect actual GFR. Performed By: #### 2 4323-8 ####[facility] LABCLIA [id number] [place] [address] [place] Glucose [Mass/Vol] 66 mg/dL Low 74-99 [facility] Comment on above: Order Comment: Speci men Type: BLOOD SPECIMENOrdering Facility: [facility] Address: [address] [place] [address] Result Comment: The [place] Diabetes Association (ADA) provides guidance for cutoff values for fasting glucose and random glucose. The ADA defines fasting as no caloric intake for at least 8 hours. Fasting plasma glucose results between 100 to 125 mg/dL indicate increased risk for diabetes (prediabetes). Fasting plasma glucose results greater than or equal to 126 mg/dL meet the criteria for diagnosis of diabetes. In the absence of unequivocal hyperglycemia, results should be confirmed by repeat testing. In a patient with classic symptoms of hyperglycemia or hyperglycemic crisis, random plasma glucose results greater than or equal to 200 mg/dL meet the criteria for diagnosis of diabetes. Reference: Standards of Medical Care in Diabetes 2016, [place] [employer] Association. Diabetes Care. 2016.39(Suppl 1). Performed By: #### 2 4323-8 ####[facility] LABCLIA [id number] [place] [address] [place] Potassium [Moles/Vol] 3.7 mmol/L Normal 3.7-5.1 [place] Comment on above: Order Comment: Speci men Type: BLOOD SPECIMENOrdering Facility: [facility] Address: [address] [place] [address] Performed By: #### 2 4323-8 ####[facility] LABCLIA [id number] [place] [id number] [place] Protein [Mass/Vol] 6.8 g/dL Normal 6.3-8.0 [facility] Comment on above: Order Comment: Speci men Type: BLOOD SPECIMENOrdering Facility: [facility] Address: [address] [place] [address] Performed By: #### 2 4323-8 ####[facility] LABIA [id number] [place] [address] [place] Sodium [Moles/Vol] 138 mmol/L Normal 136-144 [facility] Comment on above: Order Comment: Speci men Type: BLOOD SPECIMENOrdering Facility: [facility] Address: [address] [place] [address] Performed By: #### 2 4323-8 ####[facility] LABIA [id number] [place] [address] [place] Urea nitrogen [Mass/Vol] 13 mg/dL Normal 7-21 [facility] Comment on above: Order Comment: Speci men Type: BLOOD SPECIMENOrdering Facility: [facility] Address: [address] [place] [address] Performed By: #### 2 4323-8 ####[facility] LABIA [id number] [place] [address] [place] PT panel Coag (PPP)on 2024 INR Coag (PPP) [Relative time] 1.0 {INR} Normal 0.9-1.3 [facility] Comment on above: Order Comment: Speci men Type: BLOOD SPECIMENOrdering Facility: [facility] Address: [address] [place] [address] Result Comment: Tiffanie min K Antagonist (VKA) Therapeutic Range: INR 2 to 3 (Target INR of 2.5) Note: For patients treated with VKA drugs, such as warfarin, the [place] [employer] 2012 Guideline recommends a therapeutic INR range of 2 to 3 (target INR of 2.5). This recommendation includes high-risk patients with antiphospholipid syndrome with previous arterial or venous thromboembolism, current-generation mechanical or bioprosthetic aortic heart valve replacement. Note: Patients with mechanical aortic valve replacement and additional risk factors for thromboembolic events (atrial fibrillation, previous thromboembolism, LV dysfunction, hypercoagulable conditions) or an older generation mechanical AVR (i.e., ball in-Cage) or any mechanical MVR should have a INR therapeutic range of 2.5 to 3.5 (target INR of 3). Juni GH, et al. Chest 2012, 141:7S-47S Larisa RA, et al. [facility] 2017, 70: 252-289 Performed By: #### 3 4528-0 ####[facility] [id number] [place] [address] [place] PT Coag (PPP) [Time] 11.3 s Normal 9.7-13.0 [facility] Comment on above: Order Comment: Speci men Type: BLOOD SPECIMENOrdering Facility: [facility] Address: [address] [place] [address] Performed By: #### 3 4528-0 ####[facility] [id number] [address] [place] [facility] BRIEF OP NOTon 11-24-2024 BRIEF OP NOT HNO ID: [id number] Author: CELESTINO COURTNEY MD Service: Radiology Author Type: Fellow Type: Brief Op Note Filed: 11/24/2024 15:14 Note Text: BRIEF OPERATIVE / PROCEDURE NOTE LOG ID: [id number] SURGERY/PROCEDURE DATE: 11/24/2024 INCISION/PROCEDURE START TIME: 2:28 PM INCISION CLOSE/PROCEDURE END TIME: 2:58 PM SURGEON(S)/PROCEDURALIS T(S) AND FIBER OPTIC TECHNICIAN(S): Surgeons and Role: * Rubens Pringle MD - Primary * Celestino Courtney MD - Fellow No Additional Staff SURGERY/PROCEDURE(S): Image guided epidural blood patch ANESTHESIA: Local FINDINGS: Successful image guided epidural blood patch ESTIMATED BLOOD LOSS: 0 ml SPECIMENS: None COMPLICATIONS: None CLOSURE TECHNIQUE: Primary PRE-OP/PRE-PROCEDURE DIAGNOSIS: Post-LP headache POST-OP/POST-PROCEDURE DIAGNOSIS: Same as Preop SIGNATURE: Celestino Courtney MD PATIENT NAME: Sinai Lockwood DATE: November 24, 2024 TIME: 3:14 PM Normal [facility] IR BLOOD PATCH INJon -23-2 025 IR BLOOD PATCH INJ * * *Final Report* * * DATE OF EXAM: Nov 24 2024 3:12PM NDA 2442 - IR BLOOD PATCH INJ / PROCEDURE REASON: Post lumbar puncture headache * * * * Physician Interpretation * * * * PROCEDURE: Blood Patch HISTORY: The patient is a 29 years year old female who presented with post LP headache. Consent: Informed consent was obtained for this procedure. Details of informed consent can be found in Epic under the consent tab. General: A) Medication Reconciliation: The patient's medications and allergies were reviewed in the electronic medical record and reconciled to the proposed procedure/treatment. B) Pre-Procedure Medications: Medication #1: None C) Positioning: The patient was placed Prone on the Fluoroscopy table. D) The lumbar dorsal soft tissues. were then sterile prepped and draped. E) Time Out: A time out was performed immediately prior to procedure start with the nursing, anesthesia and interventional team, correctly identifying the name, medical record number, procedure, anatomy (including marking of site and side), patient position, procedure consent form, relevant diagnostic and radiology test results, antibiotic administration, safety precautions, and procedure-specific equipment needs. Timeout Affirmation (if attending not present): Attending present. Timeout Time and Procedure Start Time: 8 F) Anesthesia Type: administration of local anesthesia. Local Anesthesia: 4 cc 1% Lidocaine G) Anesthesia (sedation) was administered for a total of 0 minutes (not applicable). H) Patient Monitoring: Not applicable. TECHNIQUE/RESULT: A) Access Site: 9 cm 18g Tuohy needle from a Midline approach at the L2-L3 level. Laminectomy defect present: no. Laminectomy defect traversed: Not applicable B) Counting reference: Lumbosacral junction. For the purposes of this report, L4-5 is considered the level of the iliac crest. C) Procedure Details: Using sterile procedure, local anesthesia was introduced to the skin and subcutaneous tissues as outlined above. Blood Patch LP Details: Under fluoroscopic guidance, the needle was advanced beyond the spinal ligaments 2 ml of Omnipaque 240 was injected into the epidural space. The patient tolerated 4 ml of autologous blood obtained from the patient's IV and placed into the epidural space. D) Estimated Blood Loss: 0 mls E) Type of Removed Specimens: None F) Number of Specimens: None Fluoroscopic Radiation Summary: Plane A, Air Kerma: 3.2 mGy Fluoro time: 0:48 min:sec Post-Procedure: Conclusion: The patient was transferred to the Radiology Recovery Room in stable condition and observed for approximately 60 minutes. Immediate Complications: None ([id number]). Procedure End Time and Sign Out Time: 1458 IMPRESSION: Technically successful blood patch. Attending Physician: Dr. Donavan Pringle. Precision Crop Manager: Dr. Luciano Courtney The procedure was performed by the retail event and sales assistant, and the attending radiologist personally supervised the entire procedure. Medical Assistant Cardiology: STAN Transcribe Date/Time: Nov 24 2024 3:15P Dictated by : CELESTINO COURTNEY MD This examination was interpreted and the report reviewed and electronically signed by: RUBENS PRINGLE MD on Nov 24 2024 3:40PM [facility] NURSING PROGon 11-24-2024 NURSING PROG HNO ID: [id number] Author: LLUVIA PHAM RN Service: Nursing Author Type: Registered Nurse Type: Nursing Progress Note Filed: 11/25/2024 14:58 Note Text: Completed post procedure phone call. Sinai Lockwood is feeling well and has returned to her baseline diet and activity. Denies questions or concerns related to blood patch appointment on 11/24/2024 and had no surgical site concerns. Lluvia Pham RN [facility] Gabriela 11-22-2024 [facility] Telephone (AVXRPR) SINAI LOCKWOOD ([id number]) 1995 F Date Time Provider Department 11/22/24 INOCENCIO HERNANDEZXRDARIEN During your visit today, we recorded the following information about you: Inocencio Hernandez RN 11/22/2024 10:47 AM Signed RADIOLOGY PROCEDURE INSTRUCTIONS: You are scheduled for a Suprapubic Catheter Insertion, on November You are to arrive at 9 am and check in at [facility]: Radiology Outpatient Desk [facility]. You can expect to be here for 3-5 hours. Address: [address] [address] Diet: Do not eat any solid food after midnight the night before your procedure. You may drink clear liquids until 7 am the day of your procedure, which means black coffee, apple juice, tea, jello, Gatorade, or water only. Medications: Please take prescribed medications such as heart, blood pressure, anti-seizure, and chronic pain medications with a sip of clear liquids. Bring your current medication list. Special concerns: It is okay to shower/bathe the morning of your procedure. There may be bathing restrictions post procedure. Do you have any attached medical devices? Yes, Angel. Allergies: Allergies reviewed: Yes Do you have a contrast dye allergy? No. Labs: Lab work needs to be drawn? Yes, labs need to be drawn at least one day prior to procedure. Please bring a copy of the results if they are not done at a [facility] facility. Cellar [facility]/Transportation: How will you be arriving for your procedure? Private car. If you will be arriving via ambulance or public transportation, please call to discuss. You will need a responsible adult to accompany you to and from the procedure. We will verify your ride home upon arrival. Minors/visitors requiring supervision cannot accompany you unless there is another responsible adult with them. Child and/or dependent care arrangements need to be made. If you need to cancel or reschedule your procedure, please call our air traffic controller: Estella Leon [phone]; 8am - 4pm M-F If you have any additional questions please call: [facility] nurses desk at [phone] 8am - 4pm M-F. Allergies As of Date: 11/22/2024 Noted Allergy Reaction LATEX 11/01/2024 4 - Hives PENICILLINS 11/01/2024 4 - Hives PROPOLIS (BEE GLUE) 11/01/2024 9 - Itching Date Reviewed: 11/14/2024 Reviewed by: Ophelia Larson, RN - Fully Assessed Reason for Visit: Radiology Pre Procedure Instructions [1506] Prescriptions as of 11/22/2024 - nitrofurantoin monohydrate and macrocrystal (MACROBID) 100 mg capsule Take 1 capsule by mouth every 12 hours. - baclofen suppository 10 mg (CPD) Use 1 suppository vaginally two times a day as needed. Unwrap and insert one suppository as directed. - DULoxetine (CYMBALTA) 30 mg capsule Take 30mg once daily for 7 days and increase to 30mg twice a day after - DIFLUCAN 150 mg tablet Take 150 mg by mouth. 150 mg = 1 tab(s), Oral, q72hr, # 4 tab(s), Refills(s) 5, Pharmacy: [facility], 154, cm, 10/19/24 12:48:00 EDT, Height/Length Dosing, 56.1, kg, 10/19/24 12:48:00 EDT, Weight Dosing Problem List As Of Date: 11/22/2024 (None) Encounter Status:Closed by INOCENCIO HER[facility] (STEVE) SINAI LOCKWOOD ([id number]) 1995 F Date Time Provider Department 11/20/24 BOLA COOLEY During your visit today, we recorded the following information about you: Denise Doshi 11/20/2024 2:57 PM Signed [place] Call Name of caller : Stas Relationship to patient: Spouse/ SignificantOther Return call phone number : [phone] Reason for call : Received call from the patient Stas ,states that the pt is having some issues and needs to speak to someone right away FYI.... call was disconnected and I wanted for someone to assist the pt Carolyn Mitchell RN 11/21/2024 9:57 AM Signed Patient calling in to office. Verified by name and . Patient states that she spoke yesterday with radiologist who advised that she would need a blood patch due to significant headaches since spinal puncture on 11/14/24. She denies worsening symptoms since she spoke with the radiologist yesterday. Denies changes in vision, one sided weakness, numbness/tingling, vomiting. Discussed red flag symptoms to monitor for and when to call back to office or seek emergent care. Patient states she called for scheduling, but was advised she needed to call Dr. Cooley's office for order placement and scheduling. Attempted to transfer to [facility], but was advised Dr. Cooley only goes to [place] and needs to be handled through [place]. Please assist. Virgen Orlando MA 11/21/2024 10:19 AM Signed Routed to Dr. Cooley/Ankita as he is ONLY in [place] certain out of the month. It is appropriate also for this to be routed to the [facility], as the [facility] has a team of nurses that are able to assist. Bola Cooley MD 11/21/2024 2:26 PM Signed Addended by: BOLA OCOLEY on: 11/21/2024 02:26 PM Modules accepted: Orders Bola Cooley MD 11/22/2024 11:39 AM Signed Addended by: BOLA COOLEY on: 11/22/2024 11:39 AM Modules accepted: Orders Allergies As of Date: 11/20/2024 Noted Allergy Reaction LATEX 11/01/2024 4 - Hives PENICILLINS 11/01/2024 4 - Hives PROPOLIS (BEE GLUE) 11/01/2024 9 - Itching Date Reviewed: 11/14/2024 Reviewed by: Ophelia Larson RN - Fully Assessed Reason for Visit: Patient Update [1234] Cmt: Received call from the patient Stas ,states that the pt is having some issues and needs to speak to someone right away Primary Visit Diagnosis:Post lumbar puncture headache [G97.1] Order(s):IR BLOOD PATCH INJ [[id number]] Order #: [id number] Prescriptions as of 11/22/2024 - nitrofurantoin monohydrate and macrocrystal (MACROBID) 100 mg capsule Take 1 capsule by mouth every 12 hours. - baclofen suppository 10 mg (CPD) Use 1 suppository vaginally two times a day as needed. Unwrap and insert one suppository as directed. - DULoxetine (CYMBALTA) 30 mg capsule Take 30mg once daily for 7 days and increase to 30mg twice a day after - DIFLUCAN 150 mg tablet Take 150 mg by mouth. 150 mg = 1 tab(s), Oral, q72hr, # 4 tab(s), Refills(s) 5, Pharmacy: [facility], 154, cm, 10/19/24 12:48:00 EDT, Height/Length Dosing, 56.1, kg, 10/19/24 12:48:00 EDT, Weight Dosing Problem List As Of Date: 11/20/2024 (None) Encounter Status:Closed by BOLA COOLEY on 11/21/24 [facility] Telephone (RADIOHOSP ) SINAI LOCKWOOD ([id number]) 1995 F Date Time Provider Department 11/20/24 BRYCE BANEGAS RADIOYU During your visit today, we recorded the following information about you: Bryce Banegas MD 11/20/2024 3:54 PM Signed [facility] RADIOLOGY PLAN OF CARE I spoke with patient regarding course after recently performed lumbar puncture. In brief, lumbar puncture performed on 11/14/24 for concern for demyelinating process. Opening pressure documented at 14 cm H2O, 15 cc CSF removed. Patient endorses significant headache since the procedure that is worse when sitting up / standing up, and partially relieved while lying flat. She presented to local ED last week on 11/17 for assessment. It sounds like she was given medications for symptom relief and underwent a brain CT which I do not see in our system. Symptoms seem consistent with post lumbar puncture / positional headache. I explained the epidural blood patch procedure and its rationale. HOWEVER, patient describes what sounds like a significant episode of rectal bleeding that happened today. She says this was the first occurrence and this did not happen prior to her recent ED visit. She also endorses current lightheadedness, shortness of breath, and chest pain. These symptoms would not be expected to relate to recent lumbar puncture. I advised patient present to local ED as soon as possible for in person assessment and evaluation. I told patient to reach back out to our department once this situation is resolved/explained to decide if the blood patch procedure should be pursued. Bryce Banegas MD November 20, 2024 3:41 PM Allergies As of Date: 11/20/2024 Noted Allergy Reaction LATEX 11/01/2024 4 - Hives PENICILLINS 11/01/2024 4 - Hives PROPOLIS (BEE GLUE) 11/01/2024 9 - Itching Date Reviewed: 11/14/2024 Reviewed by: Ophelia Larson, RN - Fully Assessed Prescriptions as of 11/20/2024 - nitrofurantoin monohydrate and macrocrystal (MACROBID) 100 mg capsule Take 1 capsule by mouth every 12 hours. - baclofen suppository 10 mg (CPD) Use 1 suppository vaginally two times a day as needed. Unwrap and insert one suppository as directed. - DULoxetine (CYMBALTA) 30 mg capsule Take 30mg once daily for 7 days and increase to 30mg twice a day after - DIFLUCAN 150 mg tablet Take 150 mg by mouth. 150 mg = 1 tab(s), Oral, q72hr, # 4 tab(s), Refills(s) 5, Pharmacy: [facility], 154, cm, 10/19/24 12:48:00 EDT, Height/Length Dosing, 56.1, kg, 10/19/24 12:48:00 EDT, Weight Dosing Problem List As Of Date: 11/20/2024 (None) Encounter Status:Closed by BRYCE BANEGAS on 11/20/24 [facility] BMPOrdered By: SYSTEM SYSTEM on 11-16-2024 Anion gap [Moles/Vol] 15 mmol/L Normal 6-16 Rem isol Chem Comment on above: Performed By: #### 2 [id number] #### [facility] [address] [place] [address] Calcium [Mass/Vol] 9.7 mg/dL Normal 8.9-11.1 Remiso l Chem Comment on above: Performed By: #### 2 [id number] #### [facility] [address] [place] [address] Chloride [Moles/Vol] 105 mmol/L Normal 101-111 Jac jeanne Chem Comment on above: Performed By: #### 2 [id number] #### [facility] [address] [place] [address] CO2 [Moles/Vol] 23 mmol/L Normal 21-31 Remisol C hem Comment on above: Performed By: #### 2 [id number] #### [facility] [address] [place] [address] Creatinine [Mass/Vol] 0.8 mg/dL Normal 0.5-1.3 Rem isol Chem Comment on above: Performed By: #### 2 [id number] #### [facility] [address] [place] [address] Glucose [Mass/Vol] 109 mg/dL Normal 55-199 Remiso l Chem Comment on above: Performed By: #### 2 [id number] #### [facility] [address] [place] [address] Potassium [Moles/Vol] 3.5 mmol/L Normal 3.5-5.3 Rem isol Chem Comment on above: Performed By: #### 2 [id number] #### [facility] [address] [place] [address] Sodium [Moles/Vol] 139 mmol/L Normal 135-145 Remiso l Chem Comment on above: Performed By: #### 2 [id number] #### [facility] [address] [place] [address] Urea nitrogen [Mass/Vol] 12 mg/dL Normal 5-21 Remisol Chem Comment on above: Performed By: #### 2 775115 #### [facility] [address] [place] [address] BMPon 11-16-2024 Urea nitrogen/Creatinine [Mass ratio] 15 No Units Normal 10-20 [facility] Comment on above: Performed By: #### 2 [id number] #### [facility] [address] [place] [address] CBC w/ Auto DiffOrdered By: SYSTEM SYSTEM on 11-16-2024 Basophils/100 WBC (Bld) 0.4 % Normal 0.0-2.0 Remisol Heme Comment on above: Performed By: #### 2 [id number] #### [facility] [address] [place] [address] Basophils/Leukocytes Auto (Bld) [Pure # fraction] 0.0 E9/L Normal 0.0-0.2 Remisol Heme Comment on above: Performed By: #### 2 [id number] #### [facility] [address] [place] [address] Eosinophils (Bld) [#/Vol] 0.2 E9/L Normal 0.0-0.5 Remisol Heme Comment on above: Performed By: #### 2 [id number] #### [facility] [address] [place] [address] Eosinophils/100 WBC (Bld) 1.4 % Normal 0.0-8.0 Remisol Heme Comment on above: Performed By: #### 2 [id number] #### [facility] [address] [place] [address] Erythrocyte distribution width (RBC) [Ratio] 12.6 % Normal 10.9-14.2 Remisol Heme Comment on above: Performed By: #### 2 299645 #### [facility] [address] [place] [address] Hematocrit (Bld) [Volume fraction] 45.8 % Normal 34.0-46.0 Remisol Heme Comment on above: Performed By: #### 2 170029 #### [facility] [address] [place] [address] Hemoglobin (Bld) [Mass/Vol] 15.9 g/dL Normal 12.0-16.0 Remisol Heme Comment on above: Performed By: #### 2 354309 #### [facility] [address] [place] [address] Lymphocytes (Bld) [#/Vol] 3.3 E9/L Normal 1.0-4.0 Remisol Heme Comment on above: Performed By: #### 2 514793 #### [facility] [address] [place] [address] Lymphocytes/100 WBC (Bld) 26.4 % Normal 14.0-50.0 Remisol Heme Comment on above: Performed By: #### 2 677263 #### [facility] [address] [place] [address] MCH (RBC) [Entitic mass] 30.3 pg Normal 27.0-34.0 Remisol Heme Comment on above: Performed By: #### 2 [id number] #### [facility] [address] [place] [address] MCHC (RBC) [Mass/Vol] 34.8 g/dL Normal 31.4-36.0 Rem isol Heme Comment on above: Performed By: #### 2 487370 #### [facility] [address] [place] [address] MCV (RBC) [Entitic vol] 87.0 fL Normal 80.0-100.0 Remisol Heme Comment on above: Performed By: #### 2 987372 #### [facility] [address] [place] [address] Monocytes (Bld) [#/Vol] 0.8 E9/L Normal 0.2-1.0 Remisol Heme Comment on above: Performed By: #### 2 408888 #### [facility] [address] [place] [address] Neutrophils (Bld) [#/Vol] 8.1 E9/L High 2.0-7.5 Remisol Heme Comment on above: Performed By: #### 2 003819 #### [facility] [address] [place] [address] Neutrophils/100 WBC (Bld) 65.0 % Normal 36.0-75.0 Remisol Heme Comment on above: Performed By: #### 2 134324 #### [facility] [address] [place] [address] Platelet mean volume (Bld) [Entitic vol] 8.8 fL Normal 6.4-10.8 Remisol Heme Comment on above: Performed By: #### 2 358856 #### [facility] [address] [place] [address] Platelets (Bld) [#/Vol] 342.0 E9/L Normal 150.0-500.0 Remisol Heme Comment on above: Performed By: #### 2 076689 #### [facility] [address] [place] [address] RBC (Bld) [#/Vol] 5.3 E12/L Normal 4.3-5.9 Remisol Heme Comment on above: Performed By: #### 2 578042 #### [facility] [address] [place] [address] WBC corrected for nucl RBC Auto (Bld) [#/Vol] 12.4 E9/L High 4.0-11.0 Remisol Heme Comment on above: Performed By: #### 2 [id number] #### [facility] [address] [place] [address] CHEMISTRYOrdered By: SYSTEM SYSTEM on 11-16-2024 Albumin/Globulin [Mass ratio] 1.8 {ratio} Normal 1.1 - 2.2 Remisol Chem ALP [Catalytic activity/Vol] 49 [iU]/d Normal 21 - 98 Int._Unit/L Remisol Chem ALT No additional P-5'-P [Catalytic activity/Vol] 12 [iU]/d Normal 6 - 46 Int._Unit/L Remisol Chem AST [Catalytic activity/Vol] 12 [iU]/d Normal 5 - 43 Int._Unit/L Remisol Chem Troponin HS pg/mL Low 10.10 - 27.10 pg/mL Remisol Chem Comment on above: Interpretive Data: T he 95% CI (Confidence Interval) PPV (Positive Predictive Value) for myocardial infarction in females is 38 pg/mL, in males 51 pg/mL. The results should be used in conjunction with clinical conditions of myocardial infarction. (Access High Sensitivity Troponin I Instructions For Use, [place], February 2018) Urea nitrogen/Creatinine [Mass ratio] 15 mg/mg Normal 10 - 20 Remisol Chem COAGULATIONOrdered By: Rosey Aguilera on 11-16-2024 aPTT Coag (PPP) [Time] 26.8 s Normal 25.1 - 36.5 second(s) [facility] Auto Coag Comment on above: Interpretive Data: P arameter 15 days - 4 weeks 1 - 5 months 6 - 11 months 1 - 5 years 6 - 10 years 11 - 17 years PTT Mean: 35.4 (27.6-45.6) Mean: 33.5 (24.8-40.7) Mean: 32.4 (25.1-40.7) Mean: 31.6 (24.0-39.2) Mean: 31.6 (26.9-38.7) Mean: 31.0 (24.6-38.4) Pediatric Reference ranges were obtained from a study by Kemar Rivas et al. prepared from 1437 samples obtained at 7 different centers using the same coagulation reagent and instrumentation as [facility]. Currently there are no coagulation studies available worldwide for children to 14 days, and no normal ranges. Heparin therapeutic range (represented by Anti-Factor Xa activity of 0.2 - 0.4 U/mL) corresponds to PTT of 56.6 - 109.0 sec. PT Coag (PPP) [Time] 11.9 s Normal 9.4 - 1 2.5 second(s) [facility] Auto Coag Comment on above: Interpretive Data: 1 5 days - 4 weeks 1 - 5 months 6 -11 months 1 5 years 6 10 years 11 -17 years Mean: 11.2 (9.5 12.6) Mean: 11.0 (9.7 12.8) Mean: 11.0 (9.8 13.0) Mean: 11.3 (9.9 13.4) Mean: 11.7 (10.0 14.6) Mean: 11.8 (10.0 - 14.1) Pediatric Reference ranges were obtained from a study by Kemar Rivas et al. prepared from 1437 samples obtained at 7 different centers using the same coagulation reagent and instrumentation as [facility]. Currently there are no coagulation studies available worldwide for children to 14 days, and no normal ranges. CT Abdomen/Pelvis w/ Contras ton 11-16-2024 CT Abdomen/Pelvis w/ Contrast Exam Date/Time: 11/16/2024 16:36 EDT Reason for Exam: ABDOMINAL PAIN, ACUTE, NONLOCALIZED;Other (please specify) Report IMPRESSION: NO ACUTE ABDOMINOPELVIC PROCESS. EXAM: CT Abdomen/Pelvis w/ Contrast History: Abdominal pain Technique: Multiple contiguous axial images were obtained of the abdomen and pelvis from the level of the lung bases through the ischial tuberosities with contrast. Multiplanar reformats were obtained. Delayed images were obtained. Unless otherwise stated, incidental findings identified in this report do not require routine follow-up imaging. Comparison: CT abdomen pelvis 09/15/2024 Findings: Lung bases are clear. The liver, gallbladder, spleen, stomach, pancreas, and adrenal glands are within normal limits. The kidneys enhance uniformly. No urinary tract calculi or hydronephrosis. A Ortiz catheter is present within the urinary bladder. Tiny foci are present within the urinary bladder. Uterus is absent. Interval development of a simple appearing 5.5 cm right ovarian cyst Abdominal aorta is nonaneurysmal. No retroperitoneal or abdominal/pelvic lymphadenopathy. No small bowel obstruction. No overt colonic mass or pericolonic inflammation. Appendix is within normal limits. No free fluid or free air. No acute osseous abnormality. All CT scans at this facility use dose modulation, iterative reconstruction, and/or weight based dosing when appropriate to reduce radiation dose to as low as reasonably achievable. Technical Comments: Report GFR (mL/min/1/73m2) age Contrast: Isovue 300 Contrast amount in ml's: 100.00 Ordering Provider: Shashi Levy FINAL REPORT Dictated: 11/16/2024 4:48 pm Angel Andrews DO Signed (Electronic Signature): 11/16/2024 4:48 pm Signed by: Angel Andrews DO Transcribed by: BHAVYA Technologist: DEMETRA Daugherty [facility] CT Head or Brain w/o Contras ton 11-16-2024 CT Head or Brain w/o Contrast Exam Date/Time: 11/16/2024 16:36 EDT Reason for Exam: Headache, sudden, severe;Headache Report IMPRESSION: NO ACUTE INTRACRANIAL PROCESS. EXAMINATION: CT of the brain without contrast HISTORY: Headache COMPARISON: MRI of the brain 09/29/2024 TECHNIQUE: Multiple axial images were obtained of the brain from the skull base through the vertex. Multiplanar reformats were obtained. FINDINGS: Brain volume is age appropriate. Ventricular morphology is within normal limits. Cordova-white matter differentiation is preserved. Small subtle hypodensity of the subcortical white matter of the left frontal lobe corresponds to the abnormality seen on prior brain MRI. No acute hemorrhage or abnormal extra-axial fluid collection. Basal cisterns are patent. No mass effect or midline shift. The visualized paranasal sinuses and mastoid air cells are clear. Calvarium is intact. All CT scans at this facility use dose modulation, iterative reconstruction, and/or weight based dosing when appropriate to reduce radiation dose to as low as reasonably achievable. Ordering Provider: Shashi Levy FINAL REPORT Dictated: 11/16/2024 4:43 pm Angel Andrews DO Signed (Electronic Signature): 11/16/2024 4:43 pm Signed by: Angel Andrews DO Transcribed by: BHAVYA Technologist: DEMETRA Daugherty [facility] ED Clinical Summaryon 2024 ED Clinical Summary ED Clinical Summary [place] [id number] ED Clinical Summary Person Information Name: SINAI LOCKWOOD [place] Age: 29 Years : 1995 Sex: Female Language: Panamanian PCP: IVET LAWLER Marital Status: Visit Id: Visit Reason: Headache; Nausea; Chest pain; Back pain; chest pains, sob, nausea Speciality: Acuity: 3 Enc Type: Emergency Med Service: Emergency Arrival: 11/16/2024 14:50:18 Discharge: 11/16/2024 17:46:27 LOS: 000 02:56 Checkin: 11/16/2024 14:50:18 Checkout: 11/16/2024 17:46:27 Dispo Type: Home (Routine DC) EVENTS: Event Name Event Status Request Date/Time Start Date/Time Complete Date/Time Arrive Complete 11/16/2024 14:50:18 11/16/2024 14:50:18 11/16/2024 14:50:18 Document Home Meds Request 11/16/2024 14:50:18 Triage Complete 11/16/2024 14:50:18 11/16/2024 14:56:09 11/16/2024 14:56:09 Bed Assign Complete 11/16/2024 14:51:52 11/16/2024 14:51:52 11/16/2024 14:51:52 Dr Exam Complete 11/16/2024 14:51:52 11/16/2024 14:57:04 11/16/2024 14:57:04 RN Exam Complete 11/16/2024 14:51:52 11/16/2024 15:29:45 11/16/2024 15:29:45 EKG Complete 11/16/2024 14:53:37 11/16/2024 14:56:48 Registration Complete 11/16/2024 14:57:04 11/16/2024 15:26:50 11/16/2024 15:26:50 Dr Exam Complete 11/16/2024 14:59:06 11/16/2024 14:59:06 11/16/2024 14:59:06 CT Complete 11/16/2024 15:11:47 11/16/2024 16:01:37 11/16/2024 16:36:52 Meds Admin Complete 11/16/2024 15:11:47 11/16/2024 15:24:14 Pending Labs Complete 11/16/2024 15:11:47 11/16/2024 17:20:30 Lab Complete 11/16/2024 15:11:47 11/16/2024 16:13:37 Meds Admin Complete 11/16/2024 15:12:24 11/16/2024 15:24:15 CT Complete 11/16/2024 15:12:24 11/16/2024 16:01:37 11/16/2024 16:36:52 RT Request 11/16/2024 15:12:24 X-Ray Complete 11/16/2024 15:12:52 11/16/2024 15:37:57 11/16/2024 15:51:58 Pending Labs Complete 11/16/2024 15:12:52 11/16/2024 15:46:49 Meds Admin Complete 11/16/2024 15:14:12 11/16/2024 15:24:16 Pending Labs Complete 11/16/2024 15:21:59 11/16/2024 15:21:59 11/16/2024 16:13:37 Lab Complete 11/16/2024 15:21:59 11/16/2024 15:21:59 11/16/2024 16:13:37 Pending Labs Complete 11/16/2024 15:22:53 11/16/2024 15:22:53 11/16/2024 16:00:04 Reg Complete Request 11/16/2024 15:26:50 Reg Bed Request Complete 11/16/2024 15:26:50 11/16/2024 15:26:50 11/16/2024 15:26:50 Pending Labs Complete 11/16/2024 15:30:56 11/16/2024 15:30:56 11/16/2024 15:30:57 Wet Read Request 11/16/2024 15:51:58 Discharge Complete 11/16/2024 17:31:08 11/16/2024 17:46:34 11/16/2024 17:46:34 Transfer Complete 11/16/2024 17:46:34 11/16/2024 17:46:34 11/16/2024 17:46:34 ADDRESS: [address] [place] [address] [facility] [id number] [facility] DOC NOTES: MEDICAL INFORMATION: Prescriptions Given: New Medications [facility], [address] [place], [place] [id number], [phone] naproxen (naproxen 500 mg Tab) 1 Tablets By Mouth 2 times a day as needed Pain. Refills: 0. ondansetron (Zofran ODT 4 mg Tab-Dis) 1 Tablets By Mouth every 8 hours as needed Nausea/Vomiting. Refills: 0. polyethylene glycol 3350 (Miralax 3350 17 gram packet) 17 Gram By Mouth every day as needed Constipation. Refills: 0. Medications to Continue with No Changes Other Medications amitriptyline (amitriptyline 25 mg Tab) 1 Tablets By Mouth every day. Refills: 3. fluconazole (Diflucan 150 mg Tab) 1 Tablets By Mouth every 72 hours. Refills: 5. PATIENT EDUCATION INFORMATION: Instructions: Tension Headache, Adult, [id number] Follow up: With: Address: When: Call to schedule a follow-up appointment with your neurologist. Use naproxen and Tylenol as needed for headaches. MiraLAX as needed for constipation. And Zofran as needed for nausea/vomiting. Return to the ED with any new or worsening symptoms. In 3 days 11/19/2024 With: Address: When: BEBETO CARTY In 3 days 11/19/2024 DIAGNOSIS: Acute abdominal pain; Headache, post-lumbar puncture; Nausea Normal [facility] ED Note-Physicianon 11-17-19 ED Note-Physician ED Note-Physician Basic Information Time Seen: Cam DAVIES, Shashi Staples 11/16/2024 14:57 Chief Complaint patient presents with TRIPLETT, back pain, neck pain and chest pain that started yesterday. states that she had a spinal tap on wednesday for dx of MS History of Present Illness Patient is a 29-year-old female with a history of interstitial cystitis, neurogenic bladder with indwelling catheter, pelvic floor dysfunction, hysterectomy and seizures who presents to the ED 2 days status post lumbar puncture with a headache. Patient notes the headache began shortly after having the lumbar puncture 2 days ago and describes it as being in her frontal region bilaterally. Patient notes the headache is improved with laying down. She states the lumbar puncture was conducted at [facility] as she is being worked up for possible multiple sclerosis. Patient states the headache is radiating down her spine into her lumbar region. She states she has been keeping the lumbar puncture site clean as educated by the neurologist. Patient does note a history of migraines, but states that this feels more severe than that. Patient does note that the headache is improved when laying flat. She has been using Tylenol and ibuprofen with no relief in symptoms. Patient also notes she feels like she is not passing gas. She states she had a bowel movement 2 days ago, that was hard and small in nature. Patient states she has taken Tums, but still feels indigestion. Patient notes nausea but denies vomiting. She denies any fevers or changes in urination. Review of Systems A 10 point review of systems is negative except as noted above. Medical and Surgical History: Reviewed and noted Social history: Lives at home Family History: Reviewed. Tobacco: Denies Physical Exam Vitals & Measurements T: 36.5 ???C(Oral) HR: 63(Monitored) RR: 20 BP: 116/73 SpO2: 98% HT: 165 cm WT: 57.1 kg BMI: 20.97 General: The patient appears uncomfortable, tearful and is laying in supine position Skin: Warm, dry, no pallor noted. Head: Normocephalic, atraumatic Neck: No JVD, no midline spinal tenderness to palpation, no nuchal rigidity. Puncture site is well-healing without surrounding erythema, drainage, or fluctuance/induration Eye: PERRLA, EOMI ENT: Moist mucus membranes Cardiovascular: Regular rate normal peripheral perfusion Respiratory: Lungs clear to auscultation bilaterally, no respiratory distress no accessory muscle use no obvious audible wheezing Chest Wall: no deformity Musculoskeletal: normal ROM, no deformity, no swelling GI: Soft no obvious distention. No rebound or rigidity. No guarding. No tenderness. Neurological: A&Ox4, moves all extremities, diminished strength in the right lower extremity is baseline Psychiatric: Cooperative and appropriate Medical Decision Making Patient is a 29-year-old female with a history of interstitial cystitis, neurogenic bladder with indwelling catheter, pelvic floor dysfunction, hysterectomy and seizures who presents to the ED 2 days status post lumbar puncture with a headache. Patient is hemodynamically stable and afebrile. She has diminished strength in the right lower extremity which is baseline. She is alert and oriented appropriately. No nuchal rigidity. The puncture site is well-healing without signs of infection. Patient does have a history of brain lesions, therefore imaging is obtained. She is given 1 L normal saline, Reglan, Toradol, and Benadryl. EKG shows sinus rhythm with sinus arrhythmia. Lab work is reviewed. Mild leukocytosis of 12.4, likely reactive. Troponin is negative. BMP, hepatic function, and lipase are unremarkable. Chest x-ray does not show any acute cardiopulmonary abnormalities. CT head is negative for any acute intracranial abnormalities. CT abdomen/pelvis is not showing any acute intra-abdominal processes. Patient was updated the results. On reevaluation she noted improvement in her symptoms. Patient is comfortable with being discharged home. She will follow-up with her neurologist. She is prescribed MiraLAX, naproxen, and Zofran. Patient was advised to return to the ED with any new or worsening symptoms. She is agreeable with the plan and all questions were answered. Assessment/Plan Acute abdominal pain (R10.9: Unspecified abdominal pain) Headache, post-lumbar puncture (G97.1: Other reaction to spinal and lumbar puncture) Nausea (R11.0: Nausea) Orders: diphenhydrAMINE, 25 mg = 0.5 mL, Injection, IV Push, Once, Stop date 11/16/24 15:12:00 EDT, STAT, Start date 11/16/24 15:12:00 EDT, 11/16/24 15:12:00 EDT ketorolac, 30 mg = 1 mL, Injection, IV Push, Once, Stop date 11/16/24 15:13:00 EDT, STAT, Start date 11/16/24 15:13:00 EDT, 11/16/24 15:13:00 EDT metoclopramide, 10 mg = 2 mL, Injection, IV Push, Once, Stop date 11/16/24 15:12:00 EDT, STAT, Start date 11/16/24 15:12:00 EDT, 11/16/24 15:12:00 EDT naproxen, 500 mg = 1 tab(s), Oral, BID, PRN Pain, # 30 tab(s), Refills(s) 0, Pharmacy: [id number], [id number], cm, (more content not included)... Normal [facility] Comment on above: Result Comment: Elec tronically Signed By: Shashi Levy PA-C\.br\Date and Time Signed: 11/16/24 17:34 EDT\.br\Electronically Co-Signed By: Kenn Telol DO\.br\Date and Time Co-Signed: 11/16/24 18:18 EDT ED Patient Summaryon 025 ED Patient Summary ED Patient Summary [place] [id number] Patient Discharge Instructions Person Information Name: SINAI LOCKWOOD Age: 29 Years Arrival Date: 11/16/2024 14:50:18 Discharge Diagnosis: Acute abdominal pain; Headache, post-lumbar puncture; Nausea Primary Care Physician: IVET LAWLER Provider Information Primary Provider: Kenn Tello DO Advanced Meter Supervisor:Shashi Levy PA-C The exam and treatment you received in the Emergency Department were for an urgent problem and are not intended as complete care. It is important that you follow up with a doctor, nurse practitioner, or physician???s retail event and sales assistant for ongoing care. If your symptoms become worse or you do not improve as expected and you are unable to reach your usual health care provider, you should return to the Emergency Department. We are available 24 hours a day. SINAI LOCKWOOD has been given the following list of patient education materials, prescriptions and follow-up instructions: Follow-up Instructions: With: Address: When: Call to schedule a follow-up appointment with your neurologist. Use naproxen and Tylenol as needed for headaches. MiraLAX as needed for constipation. And Zofran as needed for nausea/vomiting. Return to the ED with any new or worsening symptoms. In 3 days 11/19/2024 With: Address: When: BEBETO CARTY In 3 days 11/19/2024 In the event that this physician does not participate in your insurance network, please consult with your insurance company to find a nearby participating provider. Patient Education Materials: Tension Headache, Adult, Codm-yn-Bmlu A MESSAGE TO ALL PATIENTS REGARDING OPIOIDS PRESCRIPTION OPIOIDS: WHAT YOU NEED TO KNOW Prescription opioids can be used to help relieve mhzfwitm-bz-lqsfmc pain and are often prescribed following a surgery or injury, or for certain health conditions. These medications can be an important part of the treatment but also come with serious risks. It is important to work with your healthcare provider to make sure you are getting the safest, most effective care. WHAT ARE THE RISKS AND SIDE EFFECTS OF OPIOID USE? Prescription opioids carry serious risks of addiction and overdose, especially with prolonged use. An opioid overdose, often marked by slowed breathing, can cause sudden . The use of prescription opioids can have a number of side effects as well, even when taken as directed: ??? Tolerance???meaning you might need to take more of the medication for the same pain relief ??? Physical dependence???meaning you have symptoms of withdrawal when a medication is stopped ??? Increased sensitivity to pain ??? Constipation ??? Nausea, vomiting, and dry mouth ??? Sleepiness and dizziness ??? Confusion ??? Depression ??? Low levels of testosterone that can result in lower sex drive, energy, and strength ??? Itching and sweating RISKS ARE GREATER WITH: ??? History of drug misuse, substance use disorder, or overdose ??? Mental health conditions (such as depression or anxiety) ??? Sleep apnea ??? Older age (65 years and older) ??? Avoid alcohol while taking prescription opioids. Also, unless specifically advised by your health care provider, medications to avoid include: ??? Benzodiazepines (such as Xanax or Valium) ??? Muscle relaxants (such as Soma or Flexeril) ??? Hypnotics (such as Ambien or Lunesta) ??? Other prescription opioids KNOW YOUR OPTIONS Talk to your health care provider about ways to manage your pain that don???t involve prescription opioids. Some of these options may actually work better and have fewer risks and side effects. Options may include: ??? Pain relievers such as acetaminophen, ibuprofen, and naproxen ??? Some medication that are also used for depression or seizures ??? Physical therapy and exercise ??? Cognitive behavioral therapy, a psychological, goal-directed approach, in which patients learn how to modify physical, behavioral, and emotional triggers of pain and stress. IF YOU ARE PRESCRIBED OPIOIDS FOR PAIN: ??? Never take opioids in greater amounts or more often than prescribed. ??? Follow up with your primary health care provider. o Work together to create a plan on how to manage your pain. o Talk about ways to help manage your pain that don???t involve prescription opioids. o Talk about any and all concerns and side effects. ??? Help prevent misuse and abuse o Never sell or share prescription opioids. o Never use another person???s prescription opioids. ??? Store prescription opioids in a secure place and out of reach of others (this may include visitors, children, friends, and family). ??? Safely dispose of unused prescription opioids: Find your community drug take-back program or your pharmacy mail-back program, or flush them down the toil (more content not included)... Normal [facility] HEMATOLOGYOrdered By: SYSTEM SYSTEM on 11-16-2024 Monocytes/100 WBC (Bld) 6.8 % Normal 4.0 - 14.0 % Remisol Heme Hep Func PanelOrdered By: [place] [employer] SYSTEM on 11-16-2024 Albumin [Mass/Vol] 4.6 g/dL Normal 3.3-5.0 Remiso l Chem Comment on above: Performed By: #### 2 [id number] #### [facility] [address] [place] [address] Bilirubin [Mass/Vol] 0.5 mg/dL Normal 0.0-1.1 Jac jeanne Chem Comment on above: Performed By: #### 2 [id number] #### [facility] [address] [place] [address] Bilirubin.direct [Mass/Vol] 0.0 mg/dL Normal 0.0-0.4 Remisol Chem Comment on above: Performed By: #### 2 [id number] #### [facility] [address] [place] [address] Bilirubin.indirect [Mass or moles/Vol] 0.5 mg/dL Normal 0.1-0.9 Remisol Chem Comment on above: Performed By: #### 2 [id number] #### [facility] [address] [place] [address] Globulin (S) [Mass/Vol] 2.5 g/dL Normal 1.4-4.0 Remisol Chem Comment on above: Performed By: #### 2 [id number] #### [facility] [address] [place] [address] Protein [Mass/Vol] 7.1 g/dL Normal 6.0-7.8 Remiso l Chem Comment on above: Performed By: #### 2 [id number] #### [facility] [address] [place] [address] Hep Func Panelon 11-16-2024 Albumin/Globulin (S) [Mass conc ratio] 1.8 Normal 1.1-2.2 [facility] Comment on above: Performed By: #### 2 [id number] #### [facility] [address] [place] [address] ALP [Catalytic activity/Vol] 49 Int._Unit/L Normal 21-98 [facility] Comment on above: Performed By: #### 2 [id number] #### [facility] [address] [place] [address] ALT No additional P-5'-P [Catalytic activity/Vol] 12 Int._Unit/L Normal 6-46 [facility] Comment on above: Performed By: #### 2 [id number] #### [facility] [address] [place] [address] AST [Catalytic activity/Vol] 12 Int._Unit/L Normal 5-43 [facility] Comment on above: Performed By: #### 2 [id number] #### [facility] [address] [place] [address] Lipase LevelOrdered By: SYST EM SYSTEM on 11-16-2024 Lipase [Catalytic activity/Vol] 42 U/L Normal 13-58 Remisol Chem Comment on above: Performed By: #### 2 [id number] #### [facility] [address] [place] [address] PT & PTTon 11-16-2024 aPTT Coag (PPP) [Time] 26.8 second(s) Normal 25.1-36.5 [facility] Comment on above: Result Comment: Para meter 15 days - 4 weeks 1 - 5 months 6 - 11 months 1 - 5 years 6 - 10 years 11 - 17 years PTT Mean: 35.4 (27.6-45.6) Mean: 33.5 (24.8-40.7) Mean: 32.4 (25.1-40.7) Mean: 31.6 (24.0-39.2) Mean: 31.6 (26.9-38.7) Mean: 31.0 (24.6-38.4) Pediatric Reference ranges were obtained from a study by sunitha Ramirez alSamantha prepared from 1437 samples obtained at 7 different centers using the same coagulation reagent and instrumentation as [facility]. Currently there are no coagulation studies available worldwide for children to 14 days, and no normal ranges. Heparin therapeutic range (represented by Anti-Factor Xa activity of 0.2 - 0.4 U/mL) corresponds to PTT of 56.6 - 109.0 sec. Performed By: #### 1 [id number] #### [facility] [address] [facility] [address] PT Coag (PPP) [Time] 11.9 second(s) Normal 9.4-12.5 [facility] Comment on above: Result Comment: 15 d ays - 4 weeks 1 - 5 months 6 -11 months 1 ??? 5 years 6 ??? 10 years 11 -17 years Mean: 11.2 (9.5 ??? 12.6) Mean: 11.0 (9.7 ??? 12.8) Mean: 11.0 (9.8 ??? 13.0) Mean: 11.3 (9.9 ??? 13.4) Mean: 11.7 (10.0 ??? 14.6) Mean: 11.8 (10.0 - 14.1) Pediatric Reference ranges were obtained from a study by sunitha Ramirez alSamantha prepared from 1437 samples obtained at 7 different centers using the same coagulation reagent and instrumentation as [facility]. Currently there are no coagulation studies available worldwide for children to 14 days, and no normal ranges. Performed By: #### 1 [id number] #### [facility] [address] [place] [address] PT & PTTOrdered By: Erin castillo on 11-16-2024 INR Coag (PPP) [Relative time] 1.06 {INR} Invalid Interpretation Code [facility] Auto Coag Comment on above: Interpretive Data: I NR results are specifically intended to assess patients stabilized on long-term Anticoagulation therapy suggested INR s Less Intensive Anticoagulation 2.0 3.0 Conventional Range 3.0 4.5 Result Comment: INR results are specifically intended to assess patients stabilized on long-term Anticoagulation therapy suggested INR???s ???Less Intensive Anticoagulation??? 2.0 ??? 3.0 Conventional Range 3.0 ??? 4.5 Performed By: #### 1 [id number] #### [facility] [address] [place] [address] Troponin 0 Hr.on 11-16-2024 Troponin HS <2.30 Low 10.10-27.10 [facility] Comment on above: Result Comment: The 95% CI (Confidence Interval) PPV (Positive Predictive Value) for myocardial infarction in females is 38 pg/mL, in males 51 pg/mL. The results should be used in conjunction with clinical conditions of myocardial infarction. (Access High Sensitivity Troponin I Instructions For Use, Mc [place]sie, February 2018) Performed By: #### 1 [id number] #### [facility] [address] [place] [address] UA with Cult Rflxon 11-17-19 25 Bilirubin Ql (U) Negative Normal Negative [facility] Comment on above: Performed By: #### 4 [id number] #### [facility] [address] [place] [address] Clarity (U) Clear Normal Clear [facility] Comment on above: Performed By: #### 4 [id number] #### [facility] [address] [place] [address] Color (U) Colorless Abnormal Yellow [facility] Comment on above: Result Comment: Micr oscopic readings are only performed on those samples that meet specific criteria set forth by [facility]. Performed By: #### 4 [id number] #### [facility] [address] [place] [address] Glucose Ql (U) Negative Normal Negative [facility] Comment on above: Performed By: #### 4 [id number] #### [facility] [address] [place] [address] Hemoglobin Auto test strip (U) [Mass/Vol] Negative Normal Negative [facility] Comment on above: Performed By: #### 4 [id number] #### [facility] [address] [place] [address] Ketones Auto test strip Ql (U) 1+ mg/dL Abnormal Negative [facility] Comment on above: Performed By: #### 4 [id number] #### [facility] [address] [place] [address] Leukocyte esterase Auto test strip Ql (U) Negative Normal Negative [facility] Comment on above: Performed By: #### 4 [id number] #### [facility] [address] [place] [address] Nitrite Auto test strip Ql (U) Negative Normal Negative [facility] Comment on above: Performed By: #### 4 [id number] #### [facility] [address] [place] [address] pH (U) 7.0 [pH] Invalid Interpretation Code 5.0-9.0 [facility] Comment on above: Performed By: #### 4 [id number] #### [facility] [address] [place] [address] Protein Ql (U) Negative Normal Negative [facility] Comment on above: Performed By: #### 4 [id number] #### [facility] [address] [place] [address] Specific gravity (U) [Rel density] >1.050 Invalid Interpretation Code 1.005-1.030 [facility] Comment on above: Performed By: #### 4 [id number] #### [facility] [address] [place] [address] Urobilinogen (U) [Mass/Vol] Negative Normal Negative [facility] Comment on above: Performed By: #### 4 [id number] #### [facility] [address] [place] [address] Type of Urine collection method Clean Catch Normal [facility] Comment on above: Performed By: #### 4 [id number] #### [facility] [address] [place] [address] URINALYSISOrdered By: Erin Aguilera on 11-16-2024 Bilirubin Ql (U) Negative Normal Negativemg/dL FT UA Auto SS Clarity (U) Clear (11/16/24 4:59 PM) Normal Clear [facility] UA Auto SS Color (U) Colorless 1 *ABN* (11/16/24 4:59 PM) Invalid Interpretation Code Yellow [facility] UA Auto SS Comment on above: Interpretive Data: M icroscopic readings are only performed on those samples that meet specific criteria set forth by [facility]. Glucose Ql (U) Negative Normal Negativemg/dL [facility] UA Auto SS Hemoglobin Auto test strip (U) [Mass/Vol] Negative (11/16/24 4:59 PM) Normal Negative [facility] UA Auto SS Ketones Auto test strip Ql (U) 1+ mg/dL Invalid Interpretation Code Negativemg/dL FT UA Auto SS Leukocyte esterase Auto test strip Ql (U) Negative (11/16/24 4:59 PM) Normal Negative [facility] UA Auto SS Nitrite Auto test strip Ql (U) Negative Normal Negativemg/dL [facility] UA Auto SS pH (U) 7.0 *NA* (11/16/24 4:59 PM) Invalid Interpretation Code 5.0 - 9.0 FT UA Auto SS Protein Ql (U) Negative Normal Negativemg/dL [facility] UA Auto SS Specific gravity (U) [Rel density] 1 Invalid Interpretation Code 1.005 - 1.030 [facility] UA Auto SS Urobilinogen (U) [Mass/Vol] Negative Normal Negativemg/dL [facility] UA Auto SS URINALYSISOrdered By: Shashi Levy on 11-16-2024 UA Spec Desc Clean Catch (11/16/24 4:59 PM) Normal [facility] UA Auto SS Work Phone: XR Chest Single Viewon 11-16 XR Chest Single View Exam Date/Time: 11/16/2024 15:51 EDT Reason for Exam: Chest pain Report IMPRESSION: No acute findings by portable radiography. EXAMINATION/TECHNIQUE: XR Chest Single View HISTORY: Back pain. Chest pain. COMPARISON: 06/06/2024. RESULT: No consolidation. No pleural effusion. No pneumothorax. Normal cardiomediastinal silhouette. No acute osseous findings. Ordering Provider: Shashi Levy FINAL REPORT Dictated: 11/16/2024 4:06 pm Riki Quezada MD Signed (Electronic Signature): 11/16/2024 4:06 pm Signed by: Riki Quezada MD Transcribed by: BHAVYA Technologist: KESHAV Daugherty [facility] eGFROrdered By: SYSTEM SYSTE Kidzloop on 11-16-2024 eGFR 103 mL/min/1.73 m2 Normal >=59 Remiso l Chem Comment on above: Performed By: #### 1 [id number] #### [facility] [address] [place] [address] BANDS OLIGOCLONAL CSFon 11-02 CSF OLIGOCLONAL BANDS Oligoclonal bands are not seen in the CSF. Normal [facility] Comment on above: Order Comment: Speci men Type: CEREBROSPINAL FLUID SPECIMENOrdering Facility: [facility] Address: [address] [place] [address] Performed By: #### 6 06-4, MISSRENO HernandezSF ####[facility] LABCLIA [id number] [address] OF [place] STAFF REVIEW (OLIGO BANDING) Reviewed by Shayla Villa M.D., Ph.D Normal [facility] Comment on above: Order Comment: Speci men Type: CEREBROSPINAL FLUID SPECIMENOrdering Facility: [facility] Address: [address] [place] [address] Performed By: #### 6 06-4, [id number] ####[facility] LABCLIA [id number] [address] [place] BRIEF OP NOTon 11-14-2024 BRIEF OP NOT HNO ID: [id number] Author: STEVEN SPANGLER MD Service: Radiology Author Type: Fellow Type: Brief Op Note Filed: 11/14/2024 10:42 Note Text: BRIEF OPERATIVE / PROCEDURE NOTE LOG ID: [id number] SURGERY/PROCEDURE DATE: 11/14/2024 INCISION/PROCEDURE START TIME: 10:21 AM INCISION CLOSE/PROCEDURE END TIME: 10:34 AM SURGEON(S)/PROCEDURALIS T(S) AND FIBER OPTIC TECHNICIAN(S): Surgeons and Role: * Steven Spangler MD - Primary * Valentina Lowry MD, MD - Proceduralist No Additional Staff SURGERY/PROCEDURE(S): diagnostic lumbar puncture ANESTHESIA: Local FINDINGS: successful diagnostic lumbar puncture at L2-3 with opening pressure of 14 cm H2O ESTIMATED BLOOD LOSS: 0 ml SPECIMENS: 15 mL of CSF in 2 vials COMPLICATIONS: None CLOSURE TECHNIQUE: Primary PRE-OP/PRE-PROCEDURE DIAGNOSIS: concern for demyelinating disease POST-OP/POST-PROCEDURE DIAGNOSIS: Same as Preop SIGNATURE: Steven Spangler MD PATIENT NAME: [facility] DATE: November 14, 2024 TIME: 10:41 AM Normal [facility] Bacteria CSF Culton 11-15-19 25 Bacteria identified Cx Nom (CSF) CULTURE, CSF: No growth 5 days GRAM STAIN: No organisms seen No Polymorphonuclear leukocytes No Mononuclear cells Rare Epithelial cells Gram stain performed on cytospun specimen. [facility] Comment on above: Performed By: #### 6 06-4, BDOLGCSF, TOURTCSF ####[facility] LABCLIA [id number] [place] [address] [place] CMV, QUALITATIVE BY PCR, NON -BLOOD (CSF, BONE MARROW, AMNIOTIC FLUID, OCULAR FLUID)on 11-14-2024 CYTOMEGALOVIRUS DNA Not detected Normal [place] Comment on above: Order Comment: Speci men Type: CEREBROSPINAL FLUID SPECIMENOrdering Facility: [facility] Address: [address] [place] [address] Result Comment: NOT DETECTED - A negative result does not rule out the presence of PCR inhibitors in the patient specimen or assay specific nucleic acid in concentrations below the level of detection by the assay. INTERPRETIVE INFORMATION: Cytomegalovirus Detection by PCR This test was developed and its performance characteristics determined by [employer]. It has not been cleared or approved by the US Food and Drug Administration. This test was performed in a CLIA certified laboratory and is intended for clinical purposes. Performed By: [employer] [address] [id number] [place] Emer[place] Buffer: Bola Saravia MD, PhD CLIA Number: [id number] Performed By: #### C VZVM, CVZVG, CMVCSF ####[facility] LABORATORIESCLIA [id number] [place] [id number] SPECIMEN SOURCE (CMVCSF) CSF [facility] Comment on above: Order Comment: Speci men Type: CEREBROSPINAL FLUID SPECIMENOrdering Facility: [facility] Address: [address] [place] [address] Performed By: #### C VZVM, CVZVG, CMVCSF ####[facility] LABORATORIESCLIA [id number] [place] [id number] CNPNon 11-14-2024 CNPN Telephone (UROLAV) [facility] ([id number]) 1995 F Date Time Provider Department 11/14/24 [facility] UROLAV During your visit today, we recorded the following information about you: Sinai Castanon MD 11/14/2024 6:21 PM Signed Spoke to patient. Had spinal tap today. Ortiz was placed, because patient was unable to void. Unable to cath more than 100ml. Had difficulty with cathing - felt like something was gripping. Current silicone cath is much more comfortable than last ortiz. Able to have BM without pain. Will proceed with SPT placement by IR and then subsequent SNM stage 1. All questions and concerns were addressed. Sinai Castanon MD Allergies As of Date: 11/14/2024 Noted Allergy Reaction LATEX 11/01/2024 4 - Hives PENICILLINS 11/01/2024 4 - Hives PROPOLIS (BEE GLUE) 11/01/2024 9 - Itching Date Reviewed: 11/14/2024 Reviewed by: Ophelia Larson, JIHAN - Fully Assessed Reason for Visit: Patient Update [1234] Primary Visit Diagnosis:Urinary retention [R33.9] Order(s):IR SUPRAPUBIC TUBE PLACEMENT [[id number]] Order #: [id number] Prescriptions as of 11/14/2024 - nitrofurantoin monohydrate and macrocrystal (MACROBID) 100 mg capsule Take 1 capsule by mouth every 12 hours. - baclofen suppository 10 mg (CPD) Use 1 suppository vaginally two times a day as needed. Unwrap and insert one suppository as directed. - DULoxetine (CYMBALTA) 30 mg capsule Take 30mg once daily for 7 days and increase to 30mg twice a day after - DIFLUCAN 150 mg tablet Take 150 mg by mouth. 150 mg = 1 tab(s), Oral, q72hr, # 4 tab(s), Refills(s) 5, Pharmacy: [facility], 154, cm, 10/19/24 12:48:00 EDT, Height/Length Dosing, 56.1, kg, 10/19/24 12:48:00 EDT, Weight Dosing Problem List As Of Date: 11/14/2024 (None) Encounter Status:Closed by [facility] on 11/14/24 [facility] CSF MANUAL DIFFon 11-14-2024 DIF TTL, CSF 57 cells counted Normal [facility] Comment on above: Order Comment: Speci men Type: CEREBROSPINAL FLUID SPECIMENOrdering Facility: [facility] Address: [address] [place] [address] Result Comment: Less than 100 cells were counted due to low cellularity of the specimen; therefore, the total differential percentage may be subject to rounding error. Performed By: #### 3 4563-7, [id number] ####[facility] LABCLIA [id number] [place] [address] [place] LYMPH%, CSF 98 % High 50-90 [facility] Comment on above: Order Comment: Speci men Type: CEREBROSPINAL FLUID SPECIMENOrdering Facility: [facility] Address: [address] [place] [address] Performed By: #### 3 4563-7, [id number] ####[facility] LABCLIA [id number] [address] [place] [address] [place] MONO%, CSF 2 % Low 10-50 [facility] Comment on above: Order Comment: Speci men Type: CEREBROSPINAL FLUID SPECIMENOrdering Facility: [facility] Address: [address] [place], [place] [address] Performed By: #### 3 4563-7, [id number] ####[facility] LABCLIA [id number] [address], [facility] [place] Cell count panel (CSF)on Clarity (CSF) Clear Normal Clear [facility] Comment on above: Order Comment: Speci men Type: CEREBROSPINAL FLUID SPECIMENOrdering Facility: [facility] Address: [address] [place], [place] [address] Performed By: #### 3 4563-7, [id number] ####[facility] LABCLIA [id number] [address], [place] [address] [place] Clarity (Unsp spec) Not Indicated Normal Clear Cl [facility] Comment on above: Order Comment: Speci men Type: CEREBROSPINAL FLUID SPECIMENOrdering Facility: [facility] Address: [address] [place], [place] [address] Performed By: #### 3 4563-7, [id number] ####[facility] LABCLIA [id number] [address] [place] [address] [place] Color (CSF) Colorless Normal Colorless [facility] Comment on above: Order Comment: Speci men Type: CEREBROSPINAL FLUID SPECIMENOrdering Facility: [facility] Address: [address] [place] [address] Performed By: #### 3 4563-7, [id number] ####[facility] LABCLIA [id number] [place] [address] [place] Color (Spun CSF) Not Indicated Normal Colorless [facility] Comment on above: Order Comment: Speci men Type: CEREBROSPINAL FLUID SPECIMENOrdering Facility: [facility] Address: [address] [place] [address] Performed By: #### 3 4563-7, [id number] ####[facility] LABCLIA [id number] [place] [address] [place] CSF TUBE NUMBER Tube 2 [facility] Comment on above: Order Comment: Speci men Type: CEREBROSPINAL FLUID SPECIMENOrdering Facility: [facility] Address: [address] [place] [address] Performed By: #### 3 4563-7, [id number] ####[facility] LABCLIA [id number] [place] [address] [place] RBC Manual cnt (CSF) [#/Vol] 0 cells/uL Normal 0-5 [facility] Comment on above: Order Comment: Speci men Type: CEREBROSPINAL FLUID SPECIMENOrdering Facility: [facility] Address: [address] [place] [address] Performed By: #### 3 4563-7, [id number] ####[facility] LABCLIA [id number] [place] [address] [place] WBC Manual cnt (CSF) [#/Vol] 1 cells/uL Normal 0-5 [facility] Comment on above: Order Comment: Speci men Type: CEREBROSPINAL FLUID SPECIMENOrdering Facility: [facility] Address: [address] [place] [address] Performed By: #### 3 4563-7, [id number] ####[facility] LABCLIA [id number] [place] [address] [place] Glucose CSF-mCncon 5 Glucose (CSF) [Mass/Vol] 59 mg/dL Normal 40-70 [facility] Comment on above: Order Comment: Speci men Type: CEREBROSPINAL FLUID SPECIMENOrdering Facility: [facility] Address: [address] [place] [address] Result Comment: Lumb ar CSF glucose values of healthy patients are approximately 60% of the plasma values and must always be compared with a concurrently measured plasma value for adequate clinical interpretation. References: 1. Glucose HK (GLUC3) [package insert V 12.0 [place]ian]. [employer], [place], [place]. November 2015. 2. Yunier Mobley, Law HSamantha (2015). Chapter 7: Glucose and Lactate. F. Rosendo helton al.(eds.), Cerebrospinal Fluid in Clinical Neurology. [place]: 21GRAMS. Performed By: #### 2 880-3, 2342-4 ####[facility] LABCLIA [id number] [place] [address] [place] IR LUMBAR PUNCTURE DIAGNOSTI Con 11-14-2024 IR LUMBAR PUNCTURE DIAGNOSTIC * * *Final Report* * * DATE OF EXAM: Nov 14 2024 10:38AM NDA 5408 - IR LUMBAR PUNCTURE DIAGNOSTIC / PROCEDURE REASON: R90.82-White matter abnormality on MRI of brain * * * * Physician Interpretation * * * * PROCEDURE: Diagnostic Lumbar Puncture Under Fluoroscopic Guidance HISTORY: The patient is a 29 years year old Female who presented with concern for demyelinating disease. Consent: Informed consent was obtained for this procedure. Details of informed consent can be found in [facility] under the consent tab. General: A) Medication Reconciliation: The patient's medications and allergies were reviewed in the electronic medical record and reconciled to the proposed procedure/treatment. B) Pre-Procedure Medications: Medication #1: None C) Positioning: The patient was placed Prone on the Fluoroscopy table. D) The lumbar dorsal soft tissues. were then sterile prepped and draped. E) Time Out: A time out was performed immediately prior to procedure start with the nursing, anesthesia and interventional team, correctly identifying the name, medical record number, procedure, anatomy (including marking of site and side), patient position, procedure consent form, relevant diagnostic and radiology test results, antibiotic administration, safety precautions, and procedure-specific equipment needs. Timeout Affirmation (if attending not present): Attending present. Timeout Time and Procedure Start Time: 1021 F) Anesthesia Type: administration of local anesthesia. Local Anesthesia: 5 cc 1% Lidocaine G) Anesthesia (sedation) was administered for a total of 0 minutes (not applicable). H) Patient Monitoring: Not applicable. TECHNIQUE/RESULT: A) Access Site: 9 cm 20 gauge spinal needle from a left paramedian approach at the L2-L3 level. Laminectomy defect present: no. Laminectomy defect traversed: Not applicable B) Counting reference: Lumbosacral junction. For the purposes of this report, L4-5 is considered the level of the iliac crest. C) Procedure Details: Using sterile procedure, local anesthesia was introduced to the skin and subcutaneous tissues as outlined above. Diagnostic LP Details: Under fluoroscopic guidance, the needle was carefully advanced into the lumbar subarachnoid space resulting in free flow of CSF. Diagnostic Volume: 15 mL of CSF was withdrawn and forwarded to the lab for analysis. Opening pressure was recorded at 14 cm H2O CSF Color: Clear D) Estimated Blood Loss: 0 mls E) Type of Removed Specimens: CSF F) Number of Specimens: 15 mL of CSF into vials Fluoroscopic Radiation Summary: Plane A, Air Kerma: 1.6 mGy Dose Area Product (DAP): 117.2 mGy*cm2 Fluoro time: 0:12 min:sec Post-Procedure: Conclusion: The patient was transferred to the Radiology Recovery Room in stable condition and observed for approximately 60 minutes. Immediate Complications: None ([id number]). Procedure End Time and Sign Out Time: 1034 IMPRESSION: TECHNICALLY SUCCESSFUL DIAGNOSTIC LUMBAR PUNCTURE. Attending Physician: Dr. Raffaele Lowry. Precision Crop Manager: Dr. Steven Spangler The procedure was performed by the: the retail event and sales assistant, and the attending radiologist was not present but immediately available to furnish services during the entire procedure. The attending radiologist performed the following procedural activities: Supervised menard portions of the procedure, not scrubbed Medical Assistant Cardiology: PSCB Transcribe Date/Time: Nov 14 2024 10:43A Dictated by : STEVEN SPANGLER MD This examination was interpreted and the report reviewed and electronically signed by: VALENTINA LOWRY MD on Nov 14 2024 12:34PM EST [id number] [facility] NURSING PROGon 11-14-2024 NURSING PROG HNO ID: [id number] Author: LLUVIA PHAM RN Service: Nursing Author Type: Registered Nurse Type: Nursing Progress Note Filed: 11/20/2024 15:14 Note Text: Patient spouse called today and voiced concern regarding Sinai's continued symptoms since having lumbar puncture performed on Thursday, November 14, 2024. reports's patient is having severe headache 10/ associated with +dizziness/lightheadedn ess worsening upon standing, +N/V, +SOB, +chest pain. Husbands states he took the patient to the ED in [place] because of the increase in symptoms with the SOB and chest pain. The patient's symptoms have not resolved since going to ED. This nurse informed the that I would give the information to the attending staff MD or fellow on duty and have them give him or the patient a call back for further instructions. agrees to this plan. Lluvia Pham RN [facility] NURSING PROG HNO ID: [id number] Author: CHEVY PEARCE RN Service: Radiology Author Type: Registered Nurse Type: Nursing Progress Note Filed: 11/15/2024 10:31 Note Text: Completed post procedure phone call. Sinai is having some back and headache pain post LP. Encouraged her to take OTC pain medication, hydrate, and lay flat to help with pain. Instructed her to call us back at [phone] if headache doesn't improve or symptoms worsen. [facility] PT EDon 11-14-2024 PT ED HNO ID: [id number] Author: IVIS LOPEZ RN Service: Radiology Author Type: Registered Nurse Type: Patient Education Filed: 11/14/2024 10:08 Note Text: AMBULATORY PATIENT EDUCATION TOPIC: Survival Skills: HEALTH PROMOTION: Follow up management READINESS TO LEARN COGNITIVE ABILITY: Alert and oriented MOTIVATION TO LEARN: Interested FAMILY SUPPORT: High - Very involved in pt care INSTRUCTION PROVIDED TO: Patient and Caregiver PATIENT LEARNS BEST BY: Written Instruction - Hand-outs Verbal Instruction FACTORS AFFECTING LEARNING: None PHYSICAL LIMITATIONS AFFECTING LEARNING: None LEARNING RESPONSE DIAGNOSIS: White matter abnormality on MRI of brain METHOD OF INSTRUCTION: Written instruction/Handouts Verbal instruction PATIENT / FAMILY RESPONSE: Verbalizes understanding of: POST-PROCEDURE INSTRUCTIONS-Correct actions to take to reduce post procedure complications FOLLOW-UP PLAN: Follow-up with Primary Care SUPPLEMENTAL MATERIAL: None REFERRAL (RECOMMENDATION): None Electronically Signed By: Ivis Beth RN In Department: HOSP MAIN [id number] [facility] Prot CSF-mCncon 11-14-2024 Protein (CSF) [Mass/Vol] 13 mg/dL Low 15-45 [facility] Comment on above: Order Comment: Speci men Type: CEREBROSPINAL FLUID SPECIMENOrdering Facility: [facility] Address: [address] [place] [address] Performed By: #### 2 880-3, 2342-4 ####[facility] LABIA [id number] [place] [address] [place] DERRICKTELLOTTRip [facility] Albumin (CSF) [Mass/Vol] <9.5 Low 10.0-30.0 [facility] Comment on above: Order Comment: Speci men Type: CEREBROSPINAL FLUID SPECIMENOrdering Facility: [facility] Address: [address] [place] [address] Performed By: #### 6 06-4, BDOLGCSF, TOURTCSF ####[facility] LABIA [id number] [place] [address] [place] Albumin [Mass/Vol] 4300 mg/dL Normal [id number] [facility] Comment on above: Order Comment: Speci men Type: CEREBROSPINAL FLUID SPECIMENOrdering Facility: [facility] Address: [address] [place] [address] Performed By: #### 6 06-4, BDOLGCSF, TOURTCSF ####[facility] LABIA [id number] [place] [address] [place] IgG (CSF) [Mass/Vol] 0.4 mg/dL Low 1.0-3.0 [facility] Comment on above: Order Comment: Speci men Type: CEREBROSPINAL FLUID SPECIMENOrdering Facility: [facility] Address: [address] [place] [address] Performed By: #### 6 06-4, CLAUDEOLGCSF, TOURTCSF ####[facility] LABIA [id number] [place] [address] [place] IgG [Mass/Vol] 817 mg/dL Normal 700-1600 [facility] Comment on above: Order Comment: Speci men Type: CEREBROSPINAL FLUID SPECIMENOrdering Facility: [facility] Address: [address] [place] [address] Performed By: #### 6 06-4, MISSDavid, DERRICKTCSF ####[facility] [id number] [place] [address] [place] IgG clearance/Albumin clearance (S+CSF) [Ratio] Normal [facility] Comment on above: Order Comment: Speci men Type: CEREBROSPINAL FLUID SPECIMENOrdering Facility: [facility] Address: [address] [place] [address] Result Comment: Unab le to calculate because one or more components used in calculation is outside assay range. Performed By: #### 6 06-4, SUSAN, TOURTCSF ####[facility] LABIA [id number] [place] [address] [place] IgG synthesis rate Calc (S+CSF) [Mass/Time] [facility] Comment on above: Order Comment: Speci men Type: CEREBROSPINAL FLUID SPECIMENOrdering Facility: [facility] Address: [address] [place] [address] Result Comment: 0.0\ X09\ Performed By: #### 6 06-4, MISSDavid, TOURTCSF ####[facility] [id number] [place] [address] [place] IgG/Albumin (CSF) [Mass ratio] [facility] Comment on above: Order Comment: Speci men Type: CEREBROSPINAL FLUID SPECIMENOrdering Facility: [facility] Address: [address] [place] [address] Result Comment: Unab le to calculate because one or more components used in calculation is outside assay range. Performed By: #### 6 06-4, BDOLGCSF, TOURTCSF ####[facility] LABCLIA [id number] [facility] [place] [address] [place] VARICELLA ZOSTER IGM AB, CSF on 11-14-2024 VZV IGM, CSF 0.00 ISR Normal <=0.90 [facility] Comment on above: Order Comment: Speci men Type: CEREBROSPINAL FLUID SPECIMENOrdering Facility: [facility] Address: [address] [place] [address] Result Comment: INTE RPRETIVE INFORMATION: VZV Ab, IgM, CSF 0.90 ISR or less ........ Negative - No significant level of IgM antibody to varicella- zoster detected. 0.91 - 1.09 ISR ......... Equivocal - Repeat testing in 10-14 days may be helpful. 1.10 ISR or greater ..... Positive - Significant level of IgM antibody to varicella- zoster virus detected, which may indicate current or recent infection. However, low levels of antibodies may occasionally persist for more than 12 months post-infection. While the presence of IgM antibodies suggest current or recent infection, low levels of IgM antibodies may occasionally persist for more than 12 months post-infection. The detection of antibodies to varicella-zoster in CSF may indicate central nervous system infection. However, consideration must be given to possible contamination by blood or transfer of serum antibodies across the blood-brain barrier. This test was developed and its performance characteristics determined by [employer]. It has not been cleared or approved by the [place] Food and Drug Administration. This test was performed in a CLIA certified laboratory and is intended for clinical purposes. Performed By: [facility] [facility] [address] [place] [address] Heel Emer[place] Buffer: Bola Saravia MD, PhD CLIA Number: [id number] Performed By: #### C VZVM, CVZVG, CMVCSF ####[facility] LABORATORIESCLIA [id number] [place] [address] VZV IGG, CSFon 11-14-2024 VZV IGG, CSF 0.01 S/CO Normal <=0.99 [facility] Comment on above: Order Comment: Speci men Type: CEREBROSPINAL FLUID SPECIMENOrdering Facility: [facility] Address: [address], [place] [address] Result Comment: INTE RPRETIVE INFORMATION: VZV Ab, IgG, CSF <=0.99 S/CO: Negative - No significant level of detectable varicella-zoster IgG antibody. >=1.00 S/CO: Positive - IgG antibody to varicella-zoster detected, which may indicate a current or past varicella-zoster infection. The detection of antibodies to varicella-zoster in CSF may indicate central nervous system infection. However, consideration must be given to possible contamination by blood or transfer of serum antibodies across the blood-brain barrier. This test was developed and its performance characteristics determined by [employer]. It has not been cleared or approved by the US Food and Drug Administration. This test was performed in a CLIA certified laboratory and is intended for clinical purposes. Performed By: [facility] [facility] [address] [place] [address] Heel Emery Buffer: Bola Saravia MD, PhD CLIA Number: [id number] Performed By: #### C VZVM, CVZVG, CMVCSF ####[facility] [id number] [place] [address] CNOVon 11-10-2024 CNOV Office Visit (RADHA ) [facility] ([id number]) 1995 F Date Time Provider Department 11/10/24 1:00 PM UROL NURSE KYLE GARCIA During your visit today, we recorded the following information about you: Dudley Falcon RN 11/10/2024 1:31 PM Signed [facility] Patient ID with two (2) identifiers verified by: name and by Dudley Falcon RN Allergies reviewed and updated: Yes Current pain intensity is: 0 on a 0-10 pain scale. Any concerns about safety in the home/falls: Not at risk for falls REASON FOR VISIT: Catheter Insert:Indwelling Urethral Procedure: PVR 205 ml, emptied bladder for 275 ml of clear, yellow urine. Per Dr. Castanon, The new 14F straight ortiz was inserted using sterile technique. The balloon was inflated to 10CC with sterile water. Ortiz attached to leg bag with stat-lock and Rubén straps. The patient tolerated the procedure well. Comments:N/A Plan:Return in one month. Dr. Castanon will follow up with pt next week. Dudley Falcon RN Electronically signed Allergies As of Date: 11/10/2024 Noted Allergy Reaction LATEX 11/01/2024 4 - Hives PENICILLINS 11/01/2024 4 - Hives PROPOLIS (BEE GLUE) 11/01/2024 9 - Itching Date Reviewed: 11/10/2024 Reviewed by: Dudley Falcon RN - Fully Assessed Reason for Visit: Nurse Visit [792] Primary Visit Diagnosis:Neurogenic bladder [N31.9] Prescriptions as of 11/10/2024 - nitrofurantoin monohydrate and macrocrystal (MACROBID) 100 mg capsule Take 1 capsule by mouth every 12 hours. - baclofen suppository 10 mg (CPD) Use 1 suppository vaginally two times a day as needed. Unwrap and insert one suppository as directed. - DULoxetine (CYMBALTA) 30 mg capsule Take 30mg once daily for 7 days and increase to 30mg twice a day after - DIFLUCAN 150 mg tablet Take 150 mg by mouth. 150 mg = 1 tab(s), Oral, q72hr, # 4 tab(s), Refills(s) 5, Pharmacy: [facility], 154, cm, 10/19/24 12:48:00 EDT, Height/Length Dosing, 56.1, kg, 10/19/24 12:48:00 EDT, Weight Dosing Problem List As Of Date: 11/10/2024 (None) Encounter Status:Closed by DUDLEY FALCON on 11/10/24 [facility] Gabriela 11-10-2024 [facility] Telephone (UROLAV) GILESSINAI ([id number]) 1995 F Date Time Provider Department 11/10/24 [facility] During your visit today, we recorded the following information about you: Priscilla Gan, JIHAN 11/10/2024 8:49 AM Signed Patient calling States she has had decreased urine output since yesterday evening Since dinner time yesterday until 2 a.m. she was not able to urinate She finally voided 100 cc around 2 a.m. This morning she is unable to urinate and only has drops when she attempts to self cath Has drank 480 cc so far today Used baclofen suppository around 7:30 this morning She feels distended, has lower abdominal pressure Estimates yesterdays fluid intake to be around 70 oz States she had 900 cc urine output yesterday Asking for recommendations She can be reached at home number, may leave a message GO TO THE EMERGENCY ROOM OR CALL 911 IF: * You develop any new symptoms * Your condition worsens * You are concerned or anxious about your condition for any other reason. If you have any questions, call back. Miryam Haney, JIHAN 11/10/2024 11:18 AM Addendum Spoke with patient Cath removed in clinic on 11/07 States that she has been voiding 50-100ml since then. Additionally, she cathed herself twice since then for approximately 100ml each. States that yesterday pm she started having difficulty voiding on her own. She self cathed and only got 5cc out. As instructed in clinic she did a baclofen suppository, went to bed and then awoke and was able to void at 2am. She got up in the morning at 0830 and was unable to void. Self cathed for zero and did another suppository without success. States her abdomen is full like she has a lot of urine in it and slightly distended. She is not currently in any discomfort. PO has been 32 oz this AM ER precautions discussed. NV appt. Made in [facility] for 1pm for PVR check, ISC education, and possible ortiz reinsert.message sent to Dr. Castanon who is in the OR today. Patient appreciative and agrees to plan. Declines further questions at this time Allergies As of Date: 11/10/2024 Noted Allergy Reaction LATEX 11/01/2024 4 - Hives PENICILLINS 11/01/2024 4 - Hives PROPOLIS (BEE GLUE) 11/01/2024 9 - Itching Date Reviewed: 11/07/2024 Reviewed by: Miryam Aldrich, RN - Fully Assessed Reason for Visit: Urinary Retention [228] Prescriptions as of 11/10/2024 - nitrofurantoin monohydrate and macrocrystal (MACROBID) 100 mg capsule Take 1 capsule by mouth every 12 hours. - baclofen suppository 10 mg (CPD) Use 1 suppository vaginally two times a day as needed. Unwrap and insert one suppository as directed. - DULoxetine (CYMBALTA) 30 mg capsule Take 30mg once daily for 7 days and increase to 30mg twice a day after - DIFLUCAN 150 mg tablet Take 150 mg by mouth. 150 mg = 1 tab(s), Oral, q72hr, # 4 tab(s), Refills(s) 5, Pharmacy: [facility], 154, cm, 10/19/24 12:48:00 EDT, Height/Length Dosing, 56.1, kg, 10/19/24 12:48:00 EDT, Weight Dosing Problem List As Of Date: 11/10/2024 (None) Encounter Status:Closed by MIRYAM HANEY on 11/10/24 [facility] Ambulatory Visit Summaryon 0 11-09-2024 Ambulatory Visit Summary Ambulatory Visit Summary SINAI LOCKWOOD :1995 Visit Date:11/09/2024 Ambulatory Visit Instructions Your Diagnosis UTI (urinary tract infection) Your Care Team Attending Physician - Remington CURTIS, Pao Lemus Primary Care Physician - IVET LAWLER This Is Your Medications List amitriptyline (amitriptyline 25 mg Tab) fluconazole (Diflucan 150 mg Tab) nitrofurantoin (Macrobid 100 mg Cap) Procedures Performed Cystoscopy (09/05/2024), Cystoscopy (12/02/2021), Cystourethroscopy with dilation of urethral stricture (07/24/2020), Cystoscopy (2019), History of tonsillectomy, Hysterectomy, Laparoscope, Laser uterosacral nerve ablation, AUDI - Laser uterosacral nerve ablation. What to do next Scheduled Follow-Up Appointments 2024 3:00 PM EDT With: Remington CURTIS, Pao Lemus Where: [facility] [address], [address] [place] [address]- Medications What How Much When Why Instructions Unchanged amitriptyline (amitriptyline 25 mg Tab) 1 Tablets By Mouth Every day Unchanged fluconazole (Diflucan 150 mg Tab) 1 Tablets By Mouth Every 72 hours Vaginal yeast infection Unchanged nitrofurantoin (Macrobid 100 mg Cap) 1 Capsules By Mouth 2 times a day UTI (urinary tract infection) Duration: 10 Days Allergies Latex (Hives) penicillin (Hives) Problems Ongoing - Any problem that you are currently receiving treatment for. Adverse reaction to COVID-19 vaccine Arm skin lesion, right Asymptomatic microscopic hematuria Bladder pain BMI 22.0-22.9, adult BMI 23.0-23.9, adult BV (bacterial vaginosis) Endometriosis ESBL (extended spectrum beta-lactamase) producing bacteria infection Gross hematuria Incomplete bladder emptying Interstitial cystitis Musculoskeletal disorder involving upper trapezius muscle Myofascial muscle pain Nerve disorder Nerve pain Neurogenic bladder Non-smoker Non-tobacco user Nonsmoker OAB (overactive bladder) Pelvic floor dysfunction Rectal bleeding Sinusitis Smoker Urinary retention UTI (urinary tract infection) Vaginal yeast infection Vomiting Historical - Any problem that you are no longer receiving treatment for. Endometriosis Interstitial cystitis Seizure Urinary retention Patient Survey You may receive a survey via text or e-mail asking about your office visit. Please share your experience with us by completing your survey. We appreciate your feedback and thank you for choosing us for your care. Normal [facility] CNOVon 11-07-2024 CNOV Office Visit (UROLAV ) SINAI LOCKWOOD ([id number]) 1995 F Date Time Provider Department 11/07/24 11:00 AM [facility] CASTANON During your visit today, we recorded the following information about you: Sinai Castanon MD 11/07/2024 3:38 PM Signed [facility] NEW PATIENT CLINIC NOTE SERVICE DATE: 11/07/2024 SERVICE TIME: 10:49 AM NAME: Sinai Lockwood CHIEF COMPLAINT: interstitial cystitis, urinary retention, neurogenic bladder HISTORY OF PRESENT ILLNESS: Sinai Lockwood is a 29 year old F P0 presenting with IC and urinary retention. 2019 ?bladder suspension Dx with IC/BPS Jul 2020 by outside provider. Doing behavioral mod, exercises, stress management. Had 6 mo relief with hydrodistension and cocktail of heparin, DMSO, kenalog and dilation of midurethral stricture. Capacity reportedly 300cc 2021 - robotic hyst for endometriosis with hydrodistension 12/02/21 - cysto with hydrodistension - capacity improved to 600ml, no hunners lesions. She had initial severe pain [id number] - robotic hyst for endometriosis with hydrodistension 11/05/24 underwent cysto, hydrodistension, instillation of bladder cocktail Subsequent retention 500ml and bladder pain. CT A/P 09/15/24 negative for filling defects, masses, hydro, stones Started on mirabegron for bladder spasms Then started ISC in the office Urine cytology 07/27/24 neg S/p cysto, HD, instillation bladder cocktail for IC 09/05 - this helped Dx based on UTI symptoms with neg culture, urinary frequency and bladder pain, bloating Seen in [facility] ED 09/15 Ortiz placed, 500cc drained. Has had 2 episodes of complete urinary retention. Was doing ISC but was unable to do this due to pain after the emg for neuro eval. Now with ortiz and her pelvic and right hip pain has resolved. Was put on timed voids and ISC, which was going well until she had EMG and developed nerve pain. Cathed on a schedule every 4-6 hours, not post void. Occ had difficulty with cathing and often had difficulty removing the catheter. Has pain during BM with ortiz catheter in place. Pain in the urethral area prior to and during BM. Has not had any bladder function testing. Last HD went to 300cc, small bladder +ELLIE, leaks more with IC flare Undergoing MS workup now S/p vag hyst 2 years ago for endometriosis Pain with sexual activity, including clitoral stimulation that makes her whole pelvis hurt and penetration The patient has undergone the following evaluation and treatments: Cystoscopy: no hunners lesions, capacity 300ml, 600ml after hydrodistension Behavioral modifications, IC diet, etc: yes, helps PFPT: made it worse Hydroxyzine: yes, improvement for short period Amitriptyline: yes, improvement switched to cymbalta by neurology Elmiron: yes, bad AE Vaginal baclofen/valium: valium 10mg/baclofen 5mg suppositories Anticholinergics/B3 agonist: mirabegron, trospium - severe AE, vesicare - severe AE but helped Hydrodistension: yes, multiple Fulguration of Hunner's lesions: n/a Bladder botox injections: no Pelvic floor botox: no Pudendal nerve block: no Sacral neuromodulation: no Urethral lidocaine instillations: yes Office bladder instillations: yes - some improvement Cyclosporine: noOSH Chart Review: 11 min BASILIA: Yes URGENCY: Yes UI: occ PADS: 1-2 thin FREQUENCY: every 1-2 hours with feeling of incomplete emptying NOCTURIA: 1 -3 per night STRAINING TO VOID: Yes EMPTIES COMPLETELY: No UTI: 3-4 past 12 months FLUIDS: 32-64 oz water Caffeine: none SEXUALLY ACTIVE: no DYSPAREUNIA: YES PREGNANCIES: none Post-menopause: no Have you had a hysterectomy:YES Postmenopausal bleeding:No Sense of vaginal bulge:NO HEMATURIA HX: Yes STONES: No GI: Constipation- using stool softeners Do you have any new weakness,balance or coordination problems:NO Do you have a history of any diagnosed back or Neurological problems:YES PAST MEDICAL HISTORY PAST MEDICAL HISTORY Diagnosis Date Bladder pain BV (bacterial vaginosis) Dysuria Mononeuropathy Muscle spasm Nerve pain OAB (overactive bladder) Pelvic floor dysfunction Urinary retention PAST SURGICAL HISTORY PAST SURGICAL HISTORY Procedure Laterality Date CYSTOSCOPY 09/05/2024 DILATION OF URETHRAL STRICTURE HYSTERECTOMY 2021 TONSILLECTOMY HX FAMILY HISTORY FAMILY HISTORY Problem Relation Age of Onset Multiple Sclerosis Other Maternal aunt AND great aunt SOCIAL HISTORY Social History Tobacco Use Smoking status: Never Smokeless tobacco: Never Vaping Use Vaping status: current everyday user Substances: Nicotine MEDICATIONS: Current Outpatient Medications Medication Sig nitrofurantoin monohydrate and macrocrystal (MACROBID) 100 mg capsule Take 1 capsule by mout (more content not included)... [facility] 25(OH)D3 SerPl-mCncon 2024 25-hydroxyvitamin D3 [Mass/Vol] 24.0 ng/mL Low 31.0-80.0 [facility] Comment on above: Order Comment: Speci men Type: BLOOD SPECIMENOrdering Facility: [facility] Address: [address] [place] [address] Performed By: #### 3 4943, 1988-09 ####[facility] [id number] [address] [facility] B. burgdorferi IgG and IgM p yen (S)on 11-02-2024 B. burgdorferi IgG+IgM Qn (S) Negative Normal [facility] Comment on above: Order Comment: Speci men Type: BLOOD SPECIMENOrdering Facility: [facility] Address: [address] [place] [address] Result Comment: Rece nt infection with B. burgdorferi sensu lato cannot be excluded if the specimen collected within four weeks after the onset of signs and symptoms or within six weeks after a known tick exposure. Clinical and epidemiological correlation is required. Performed By: #### 3 4942-3, 1988-09 ####[facility] LABIA [id number] [address] [place] CNOVon 11-02-2024 CNOV Office Visit (NEMSLR ) SINAI LOCKWOOD ([id number]) 1995 F Date Time Provider Department 11/02/24 8:00 AM BOLA COOLEYSMADELNIE During your visit today, we recorded the following information about you: Pulse Blood pressure Weight 83/minute 135/77 56.3 kg Bola Cooley MD 11/02/2024 10:54 AM Addendum Neurology Outpatient Clinic History and Physical Clinic Preceptor: Amanda Alvarado MD Reason for Evaluation: Evaluation for MS HPI: Sinai Lockwood is a left-handed, 29 year old female from [place], [place] who presents to the [facility] outpatient neurology department with a chief complaint of possible MS. Past medical history significant for: -Pelvic pain, possible neuropathy + laser uterosacral nerve ablation, urinary issues, intersitial cystitis, endometriosis s/p laparotomy 2019, urinary retention, bacterial vaginosis, migraine w visual aura, hx tonsillectomy. Long hx pelvic pain + neuropathic pain in R labial region to RLE and R back with inability to walk at times due to pain (not due to weakness). Hysterectomy 2019 for endometriosis (ovaries retained). No hx of unilateral weakness, vision changes >24 hours. Does report lower pelvic mid back squeezing sensation + overall fatigue. Pain described as bladder aching/squeezing along with radiating burning/zapping pain down inward portion of R thigh. However worsened after urological procedure 09/05/2024 Has seen urology with multiple cystoscopies 2019, hydro distension cystoscopy 09/05/2024), cystourethroscopy + dilation of urethral stricture 07/2020. On/off amitriptyline, mirabegron, Tolterodine + baclofen, diazepam suppositories for mixed urinary symptoms. Previously done pelvic floor therapy as well. Currently on amitryptiline, mirabegron + baclofen, diazepam suppositories. Off tolterodine Pt reports new sudden onset of urinary retention started 09/2024 after recent cystoscopy with hydrodistension on 09/05/2024. Had an indwelling ortiz post procedure which was weaned to self catheterization but now back to indwelling ortiz over the past three weeks. Had ortiz catheter twice (now currently in for about 3 weeks). Worsened radiating leg pain with weakness 2/2 pain after urological procedure 09/05/2024 Underwent MRI brain 09/2024 with a non enhancing T2 L frontal subcortical lesion seen. MRI ihqovokb-kguelbdg-jqubc r w/wo late October 2024 w/o enhancement/chronic L5-S1 changes seen.Did have a lumbar MRI w/o in 2020 by [facility]. Maternal hx of MS great aunt, aunt. Underwent MRI brain 09/2024 and MRI xapiebqn-bwcdmgat-ghokq r w/wo late October 2024.Did have a lumbar MRI w/o in 2020 by [facility]. Had EMG several weeks ago as well for neuropathic pain and specifically testing the pudendal nerve which was reportedly normal. 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 Other neurological issues include intermittent bifrontal headache described as throbbing with visual aura and photo/phonophobia. Since adolescence, used to have worsened nausea/vomitting when younger but improved now. Negative for red flag SNOOP criteria. Happens once a week lasting for several hours. Partially relieved with otc acetaminophen. HPI most recent clinic note by Dr. Pao Macedo 09/18/24 below: CURRENT OUTPATIENT MEDICATIONS Current Outpatient Medications Medication Sig diazepam (VALIUM ORAL) Take by mouth. baclofen 10 mg diazePAM 10 mg lidocaine 2% vaginal suppository (CPD) Use 1 suppository vaginally daily at bedtime. amitriptyline (ELAVIL) 25 mg tablet Take 25 mg by mouth once daily. baclofen 10 mg tablet Take 10 mg by mouth three times a day. DIFLUCAN 150 mg tablet Take 150 mg by mouth. 150 mg = 1 tab(s), Oral, q72hr, # 4 tab(s), Refills(s) 5, Pharmacy: [facility], 154, cm, 10/19/24 12:48:00 EDT, Height/Length Dosing, 56.1, kg, 10/19/24 12:48:00 EDT, Weight Dosing No current facility-administered medications for this visit. MEDICAL HISTORY PAST MEDICAL HISTORY Diagnosis Date Bladder pain BV (bacterial vaginosis) Dysuria Mononeuropathy Muscle spasm Nerve pain OAB (overactive bladder) Pelvic floor dysfunction Urinary retention SURGICAL HISTORY PAST SURGICAL HISTORY Procedure Laterality Date CYSTOSCOPY 09/05/2024 DILATION OF URETHRAL STRICTURE HYSTERECTOMY TONSILLECTOMY HX SOCIAL HISTORY FAMILY HISTORY FAMILY HISTORY Problem Relation Age of Onset Multiple Sclerosis Other Maternal aunt AND great aunt ALLERGIES ALLERGIES Allergen Reactions Latex Hives Penicillins Hives Propolis (Bee Glue) Itching REVIEW OF SYSTEMS: (negative except for those indicated in bold) Review of Systems Constitutional: Positive for fatigue. Negative for appetite change, fever, recent unintentional weight loss, recent weight gain and viral (more content not included)... [facility] WOOL BROKER DEMYELINATING DISEASE EV ALUATION, SERUMon 11-02-2024 WOOL BROKER DEMYELINATING DISEASE INTERP, S SEE NOTE [facility] Comment on above: Order Comment: Speci men Type: BLOOD SPECIMENOrdering Facility: [facility] Address: [address] [place] [address] Result Comment: No i nformative autoantibodies were detected in this evaluation. A negative result does not preclude a diagnosis of an inflammatory WOOL BROKER demyelinating disorder. Performed By: #### C DS1SE ####[facility] LABCLIA [id number] [place] [address] MYELIN OLIGODENDROCYTE GLYCOPROTEIN (MOG-IGG1) FLUORESCENCE-ACTIVATE D CELL Negative Normal [facility] Comment on above: Order Comment: Speci men Type: BLOOD SPECIMENOrdering Facility: [facility] Address: [address] [place] [address] Result Comment: ADDITIONAL INFORMATION This test was developed and its performance characteristics determined by [facility] in a manner consistent with CLIA requirements. This test has not been cleared or approved by the U.S. Food and Drug Administration. Test Performed by: [address] [address] Oil Seal Assembler: Kem Mitchell Ph.D.; CLIA# [id number] Performed By: #### C DS1SE ####[facility] [id number] [place] [address] NMO/AQPF FACS, S Negative Normal Negative [facility] Comment on above: Order Comment: Daniel mathis Type: BLOOD SPECIMENOrdering Facility: [facility] Address: [address] [place] [address] Result Comment: ADDITIONAL INFORMATION This test was developed and its performance characteristics determined by [facility] in a manner consistent with CLIA requirements. This test has not been cleared or approved by the U.S. Food and Drug Administration. Performed By: #### C DS1SE ####[facility] [id number] [place] [address] Glucose SerP-[facility] 025 Glucose [Mass/Vol] 68 mg/dL Low 74-99 [facility] Comment on above: Order Comment: Daneil mathis Type: BLOOD SPECIMENOrdering Facility: [facility] Address: [address] [place] [address] Result Comment: The [place] Diabetes Association (ADA) provides guidance for cutoff values for fasting glucose and random glucose. The ADA defines fasting as no caloric intake for at least 8 hours. Fasting plasma glucose results between 100 to 125 mg/dL indicate increased risk for diabetes (prediabetes). Fasting plasma glucose results greater than or equal to 126 mg/dL meet the criteria for diagnosis of diabetes. In the absence of unequivocal hyperglycemia, results should be confirmed by repeat testing. In a patient with classic symptoms of hyperglycemia or hyperglycemic crisis, random plasma glucose results greater than or equal to 200 mg/dL meet the criteria for diagnosis of diabetes. Reference: Standards of Medical Care in Diabetes 2016, [place] Diabetes Association. Diabetes Care. 2016.39(Suppl 1). Performed By: #### 2 345-7 ####[facility] LABCLIA [id number] [place] [address] [place] HIV 1+2 Ab IA Qlon 5 HIV 1 and 2 Ab IA.rapid Nom (S/P/Bld) [facility] Comment on above: Order Comment: Speci men Type: BLOOD SPECIMENOrdering Facility: [facility] Address: [address] [place] [address] Result Comment: Test not indicated. Performed By: #### 3 1201-7 ####[facility] LABCLIA [id number] [place] [address] [place] HIV 1+2 Ab+HIV1 p24 Ag IA Ql Non-Reactive Normal Nonreactive [facility] Comment on above: Order Comment: Speci men Type: BLOOD SPECIMENOrdering Facility: [facility] Address: [address] [place] [address] Performed By: #### 3 1201-7 ####[facility] [id number] [address] [place] HIV immunoassay testing algorithm interpretation (S/P/Bld) [Interp] [facility] Comment on above: Order Comment: Speci men Type: BLOOD SPECIMENOrdering Facility: [facility] Address: [address] [place] [address] Result Comment: No e vidence of HIV-1 or HIV-2 infection. Should recent infection be suspected, repeat testing may be considered 2-3 weeks after this draw. [place] Rev. Code 3701.243(E): This information has been disclosed to you from confidential records protected from disclosure by state law. You shall make no further disclosure of this information without the specific, written, and informed release of the individual to whom it pertains or as otherwise permitted by state law. A general authorization for the release of medical or other information is not sufficient for the purpose of the release of HIV test results or diagnoses. Performed By: #### 3 1201-7 ####[facility] LABIA [id number] [place] [address] [place] MRI Spine Cervical w/ + w/o Contraston 10-25-2024 MRI Spine Cervical w/ + w/o Contrast Exam Date/Time: 10/24/2024 20:10 EDT Reason for Exam: urinary retention, MS workup;Other (please specify) Report IMPRESSION: Mild degenerative changes thoracic spine. Unremarkable appearance of the cervical spinal cord. HISTORY: Urinary issues. Bladder spasms. Possible multiple sclerosis. TECHNIQUE: Routine cervical spine MR protocol without and with gadolinium. COMPARISON: None. RESULT: Counting reference: Craniocervical junction. Alignment: Alignment is anatomic. Craniocervical junction: Craniocervical junction is unremarkable. Cord: The cervical spinal cord is within normal limits of signal intensity and morphology. No suspicious enhancement. Bone marrow signal/fracture: No evidence for acute or chronic fracture. No destructive osseous process. Small amount of endplate degenerative signal at C5-C6. Cervical soft tissues: The paraspinal soft tissues are unremarkable. C2-C3: No significant canal or foraminal narrowing. C3-C4: No significant canal or foraminal narrowing. C4-C5: Tiny disc bulge. No significant canal or foraminal narrowing. C5-C6: Disc bulge. Endplate osteophytes. Mild bilateral foraminal narrowing and mild canal narrowing. C6-C7: No significant canal or foraminal narrowing. C7-T1: No significant canal or foraminal narrowing. Upper thoracic spine: Refer to concurrent thoracic spine MRI. Tech Comments: Contrast: Vueway Contrast amount in ml's: 5.50 Report Ordering Provider: Pao Macedo FINAL REPORT Dictated: 10/25/2024 2:17 pm Riki Quezada MD. Signed (Electronic Signature): 10/25/2024 2:17 pm Signed by: Riki Quezada MD Transcribed by: BHAVYA Technologist: CAITLYN Aiken [facility] MRI Spine Lumbar w/ + w/o Co ntraston 10-25-2024 MRI Spine Lumbar w/ + w/o Contrast Exam Date/Time: 10/24/2024 20:11 EDT Reason for Exam: urinary retention, MS workup;Other (please specify) Report IMPRESSION: Mild degenerative changes lower lumbar spine. No significant canal or foraminal narrowing. HISTORY: Urinary issues. Bladder spasms. Possible multiple sclerosis. TECHNIQUE: Routine lumbosacral spine MR protocol without and with intravenous gadolinium. Unless otherwise stated, incidental findings in this report do not require further routine follow-up imaging. COMPARISON: None. RESULT: Counting reference: Lumbosacral junction. For the purposes of this report, L5-S1 is considered the last well-formed disc space. Alignment: Alignment is anatomic. Bone marrow signal/fracture: No evidence for acute fracture. No evidence for pathologic marrow infiltration. No suspicious enhancement after contrast. Conus: The conus is within normal limits of signal intensity and morphology. Paraspinal soft tissues: Paraspinal soft tissues are unremarkable. Lower thoracic spine: Visualized lower thoracic canal and foramina are without significant narrowing. T12-L1: No significant canal or foraminal narrowing. L1-L2: No significant canal or foraminal narrowing. L2-L3: No significant canal or foraminal narrowing. L3-L4: No significant canal or foraminal narrowing. L4-L5: Mild facet degenerative changes without significant canal or foraminal narrowing. L5-S1: Disc desiccation. Disc bulge. Tiny central zone disc protrusion. Facet degenerative changes. No significant canal or foraminal narrowing. Sacrum and iliac wings: The visualized sacrum and iliac wings are unremarkable. The presacral soft tissues are unremarkable. Report Tech Comments: Contrast: Vueway Contrast amount in ml's: 5.50 Ordering Provider: Pao Macedo FINAL REPORT Dictated: 10/25/2024 2:23 pm Riki Quezada MD Signed (Electronic Signature): 10/25/2024 2:23 pm Signed by: Riki Quezada MD Transcribed by: BHAVYA Technologist: CAITLYN Daugherty [facility] MRI Spine Thoracic w/ + w/o Contraston 10-25-2024 MRI Spine Thoracic w/ + w/o Contrast Exam Date/Time: 10/24/2024 20:11 EDT Reason for Exam: urinary retention, MS workup;Other (please specify) Report IMPRESSION: Unremarkable MRI of the thoracic spine. Normal appearance of the thoracic spinal cord. HISTORY: Urinary issues. Bladder spasms. Possible multiple sclerosis TECHNIQUE: Routine thoracic spine MR protocol with and without intravenous gadolinium. COMPARISON: None. RESULT: MR THORACIC: Counting reference: Craniocervical junction. Alignment: Alignment is anatomic. Cord: The thoracic cord is within normal limits of signal intensity and morphology. Bone marrow signal/fracture: No evidence for recent fracture. No pathologic marrow infiltration. No suspicious enhancement. Thoracic soft tissues: The paraspinal soft tissues are unremarkable. Canal and foramina: The thoracic canal and foramina are patent. Tech Comments: Contrast: Vueway Contrast amount in ml's: 5.50 Ordering Provider: Pao Macedo FINAL REPORT Dictated: 10/25/2024 2:21 pm Riki Quezada MD Signed (Electronic Signature): 10/25/2024 2:21 pm Signed by: Riki Quezada MD Transcribed by: BHAVYA Technologist: CAITLYN [facility] C Urineon 10-22-2024 Bacteria identified Cx Nom (U) Microbiology PROCEDURE: Urine Culture [R1] SOURCE: U CleanCatch BODY SITE: COLLECTED DATE/TIME: 10/19/2024 13:23 EDT RECEIVED DATE/TIME: 10/20/2024 19:07 EDT START DATE/TIME: 10/20/2024 19:07 EDT FREE TEXT SOURCE: LOGAN GERMAN, LOGAN GERMAN, IVET COONEY AMENDED REPORTS Amended Report [] Verified Date/Time: 10/22/2024 11:53 EDT >100,000 cfu/ml Escherichia coli ESBL SUSCEPTIBILITY RESULTS ____ LEGEND: S=Susceptible, N/R=Not Reported, Blank=Data not available, or drug not advisable or tested, I=Intermediate, ESBL=Extended spectrum beta-lactamase, R=Resistant, TFG=Thymidine-dependent strain, RANJEET=Beta-lactamase positive, PATRICIA=mcg/m;(mg/L), S*=Predicted susceptible interp, R*=Predicted resistant interp ___ ECESBL Antibiotic PATRICIA Dilutn PATRICIA Interp Ampicillin >16 R* Ampicillin/ 16/8 I Sulbactam Aztreonam 16 ESBL Cefazolin >16 R* Cefepime >16 R* Ceftazidime 8 ESBL Ceftazidime/ <=8 S Avibactam Ceftriaxone >2 ESBL Cefuroxime >16 R* Ciprofloxacin <=0.25 S Ertapenem <=0.5 S Gentamicin >8 R Levofloxacin <=0.5 S Meropenem <=1 S Nitrofurantoin <=32 S Piperacillin/ <=8 S Tazobactam Tetracycline <=4 S Tobramycin 8 I Trimethoprim/ <=2/38 S Sulfa Performing Locations R1: This test was performed at: [facility], [address] [place] [address], [id number] , , [facility] Comment on above: Performed By: #### [id number] #### [facility] [address] [place] [id number] Bacteria identified Cx Nom (U) Microbiology PROCEDURE: Urine Culture [R1] SOURCE: U CleanCatch BODY SITE: COLLECTED DATE/TIME: 10/19/2024 13:23 EDT RECEIVED DATE/TIME: 10/20/2024 19:07 EDT START DATE/TIME: 10/20/2024 19:07 EDT FREE TEXT SOURCE: LOGAN GERMAN, LOGAN GERMAN, IVET COONEY FINAL REPORTS Final Report [] Verified Date/Time: 10/22/2024 11:53 EDT >100,000 cfu/ml Escherichia coli ESBL Final Report Printed to ED. 10/22/2024 11:53:30 SUSCEPTIBILITY RESULTS ____ LEGEND: S=Susceptible, N/R=Not Reported, Blank=Data not available, or drug not advisable or tested, I=Intermediate, ESBL=Extended spectrum beta-lactamase, R=Resistant, TFG=Thymidine-dependent strain, RANJEET=Beta-lactamase positive, PATRICIA=mcg/m;(mg/L), S*=Predicted susceptible interp, R*=Predicted resistant interp ___ ECESBL Antibiotic PATRICIA Dilutn PATRICIA Interp Ampicillin >16 R* Ampicillin/ 16/8 I Sulbactam Aztreonam 16 ESBL Cefazolin >16 R* Cefepime >16 R* Ceftazidime 8 ESBL Ceftazidime/ <=8 S Avibactam Ceftriaxone >2 ESBL Cefuroxime >16 R* Ciprofloxacin <=0.25 S Ertapenem <=0.5 S Gentamicin >8 R Levofloxacin <=0.5 S Meropenem <=1 S Nitrofurantoin <=32 S Piperacillin/ <=8 S Tazobactam Tetracycline <=4 S Tobramycin 8 I Trimethoprim/ <=2/38 S Sulfa Performing Locations R1: This test was performed at: [facility], [address] [place] [address], [id number]- , , [facility] Comment on above: Performed By: #### [id number] #### [facility] [address] [place] [id number] Ambulatory Visit Summaryon 0 10-20-2024 Ambulatory Visit Summary Ambulatory Visit Summary SINAI LOCKWOOD :1995 Visit Date:10/20/2024 Ambulatory Visit Instructions Your Diagnosis Urinary retention Interstitial cystitis Your Care Team Attending Physician - Pao Macedo MD Primary Care Physician - IVET LAWLER This Is Your Medications List amitriptyline (amitriptyline 25 mg Tab) Contact prescribing physician if questions or concerns fluconazole (Diflucan 150 mg Tab) nitrofurantoin (Macrobid 100 mg Cap) Procedures Performed Cystoscopy (09/05/2024), Cystoscopy (12/02/2021), Cystourethroscopy with dilation of urethral stricture (07/24/2020), Cystoscopy (2019), History of tonsillectomy, Hysterectomy, Laparoscope, Laser uterosacral nerve ablation, AUDI - Laser uterosacral nerve ablation. Discharge Vitals Heart Rate (Peripheral) 90 Respiratory Rate 18 Blood Pressure 112/68 Height 165 cm Height 65 in Weight 57.1 kg Weight 125.884 lb BMI 20.97 What to do next Scheduled Follow-Up Appointments 2024 3:00 PM EDT With: Pao Macedo MD Where: [facility] [address], [address] [place] [address]- You Need to Schedule the Following Appointments Follow Up with Remington CURTIS, Pao Lemus, URL, URO When: Where: You Need to Complete the Following MRI Spine Cervical w/ + w/o Contrast, 10/20/24, Routine, Order for Future Visit, Transport Mode: Ambulatory, Reason: Other (please specify), Reason: urinary retention, MS workup, No, No, Urinary retention, [facility] Spine Lumbar w/ + w/o Contrast, 10/20/24, Routine, Order for Future Visit, Transport Mode: Ambulatory, Reason: Other (please specify), Reason: urinary retention, MS workup, No, No, [facility]inary [facility] w/ + w/o Contrast, 10/20/24, Routine, Order for Future Visit, Transport Mode: Ambulatory, Reason: Other (please specify), Reason: urinary retention, MS workup, No, No, Urinary retention, pp_set_radiology_subspe [facility] [place] Medications What How Much When Why Instructions Unchanged amitriptyline (amitriptyline 25 mg Tab) 1 Tablets By Mouth Every day Unchanged fluconazole (Diflucan 150 mg Tab) 1 Tablets By Mouth Every 72 hours Vaginal yeast infection Contact prescribing physician if questions or concerns Unchanged nitrofurantoin (Macrobid 100 mg Cap) 1 Capsules By Mouth 2 times a day UTI (urinary tract infection) Duration: 7 Days Contact prescribing physician if questions or concerns Allergies Latex (Hives) penicillin (Hives) Problems Ongoing - Any problem that you are currently receiving treatment for. Adverse reaction to COVID-19 vaccine Arm skin lesion, right Asymptomatic microscopic hematuria Bladder pain BMI 22.0-22.9, adult BMI 23.0-23.9, adult BV (bacterial vaginosis) Endometriosis ESBL (extended spectrum beta-lactamase) producing bacteria infection Gross hematuria Incomplete bladder emptying Interstitial cystitis Musculoskeletal disorder involving upper trapezius muscle Myofascial muscle pain Nerve disorder Nerve pain Neurogenic bladder Non-smoker Non-tobacco user Nonsmoker OAB (overactive bladder) Pelvic floor dysfunction Rectal bleeding Sinusitis Smoker Urinary retention Vaginal yeast infection Vomiting Historical - Any problem that you are no longer receiving treatment for. Endometriosis Interstitial cystitis Seizure Urinary retention Patient Survey You may receive a survey via text or e-mail asking about your office visit. Please share your experience with us by completing your survey. We appreciate your feedback and thank you for choosing us for your care. Education Materials Interstitial Cystitis Interstitial cystitis is inflammation of the bladder. This condition is also known as painful bladder syndrome. This may cause pain in the bladder area as well as a frequent and urgent need to urinate. The bladder is an organ that stores urine after the urine is made in the kidneys. The severity of interstitial cystitis can vary from person to person. You may have flare-ups, and then your symptoms may go away for a while. For many people, it becomes a long-term (chronic) problem. What are the causes? The cause of this condition is not known. What increases the risk? The following factors may make you more likely to develop this condition: ??? Being female. ??? Having fibromyalgia. ??? Having irritable bowel syndrome (IBS). ??? Having endometriosis. ??? Having chronic fatigue syndrome. This condition may be aggravated by: ??? Stress. ??? Smoking. ??? Spicy foods. What are the signs or symptoms? Symptoms of interstitial cystitis vary, and they can change management lead time. Symptoms may include: ??? Discomfort or pain in the bladder area, which is in th (more content not included)... Normal [facility] UA with Cult Rflxon 10-21-19 25 Bacteria Auto Ql (U) 1+ /HPF Abnormal Trace Fish er [facility] Comment on above: Performed By: #### 4 [id number] #### [facility] [address] [place] [address] Bilirubin Ql (U) Negative Normal Negative [facility] Comment on above: Performed By: #### 4 [id number] #### [facility] [address] [place] [address] Clarity (U) Clear Normal Clear [facility] Comment on above: Performed By: #### 4 [id number] #### [facility] [address] [place] [address] Color (U) Light-Yellow Normal Yellow [facility] Comment on above: Result Comment: Micr oscopic readings are only performed on those samples that meet specific criteria set forth by [facility]. Performed By: #### 4 [id number] #### [facility] [address] [place] [address] Epithelial cells.squamous Auto (Urine sed) [#/Area] 0-2 Invalid Interpretation Code [facility] Comment on above: Performed By: #### 4 [id number] #### [facility] [address] [place] [address] Glucose Ql (U) Negative Normal Negative [facility] Comment on above: Performed By: #### 4 [id number] #### [facility] [address] [place] [address] Hemoglobin Auto test strip (U) [Mass/Vol] 1+ mg/dL Abnormal Negative [facility] Comment on above: Performed By: #### 4 [id number] #### [facility] [address] [place] [address] Ketones Auto test strip Ql (U) Negative Normal Negative [facility] Comment on above: Performed By: #### 4 [id number] #### [facility] [address] [place] [address] Leukocyte esterase Auto test strip Ql (U) 250 Eleni/uL Abnormal Negative [facility] Comment on above: Performed By: #### 4 [id number] #### [facility] [address] [place] [address] Mucus Auto Ql (U) Negative Normal Negative [facility] Comment on above: Performed By: #### 4 [id number] #### [facility] [address] [place] [address] Nitrite Auto test strip Ql (U) 1+ mg/dL Abnormal Negative [facility] Comment on above: Performed By: #### 4 [id number] #### [facility] [address] [place] [address] pH (U) 6.0 [pH] Invalid Interpretation Code 5.0-9.0 [facility] Comment on above: Performed By: #### 4 [id number] #### [facility] [address] [place] [address] Protein Ql (U) Negative Normal Negative [facility] Comment on above: Performed By: #### 4 [id number] #### [facility] [address] [place] [address] RBC Ql (U) 0-3 Normal 0-3 [facility] Comment on above: Performed By: #### 4 [id number] #### [facility] [address] [place] [address] Specific gravity (U) [Rel density] 1.004 Invalid Interpretation Code 1.005-1.030 [facility] Comment on above: Performed By: #### 4 [id number] #### [facility] [address] [place] [address] Urobilinogen (U) [Mass/Vol] Negative Normal Negative [facility] Comment on above: Performed By: #### 4 [id number] #### [facility] [address] [place] [address] WBC Auto (Urine sed) [#/Area] 6-15 Abnormal 0-5 [facility] Comment on above: Performed By: #### 4 [id number] #### [facility] [address] [place] [address] Urology Office/Clinic Noteon 10-20-2024 Urology Office/Clinic Note Urology Office/Clinic Note Chief Complaint Hospital folow up HPI Staff Hospital follow up, pt is here today due to urinary retention Pt has a Ortiz for a week. Pt was seen at [facility] on 10/13/24 pt had over 600cc Dx: Urinary retention, Yeast infection of vagina, Interstitial cystitis, Gross hematuria, OAB, Incomplete bladder emptying, Pelvic floor dysfunction, Myofascial muscle pain * Amitriptyline 25mg qd History of Present Illness Tests reviewed: external ER records, MRI, notes from PCP, UA, Ucx I have reviewed the previous health record information and history for this patient from Dr. Macedo and external providers I have reviewed and verified the staff HPI to be accurate for this encounter. Review of Systems PHQ Score Initial Depression Screen Score: 0 SCORE ROS - Provider Constitutional: denies weight loss, denies hot flashes. Eyes: denies eye problems. Gastrointestinal: denies nausea, denies vomiting. Cardiovascular: denies chest pain or angina. Integumentary: no dryness Musculoskeletal: denies musculoskeletal symptoms. ENMT: denies otolaryngeal symptoms. Respiratory: no shortness of breath. Heme/Lymph: denies easy bleeding tendency, denies easy bruising tendency. Psychiatric: no confusion, no anxiety. Genitourinary: See HPI. Physical Exam Vitals & Measurements HR: 90(Peripheral) RR: 18 BP: 112/68 HT: 165 cm HT: 65 in WT: 57.1 kg WT: 125.884 lb BMI: 20.97 General Appearance: alert, no distress, well nourished, well developed female. Ortiz to leg bag, cyu Assessment/Plan 29 yo female with IC presents for f/up to recent UR episode, suspect newly diagnosed MS 1. Urinary retention (R33.9: Retention of urine, unspecified) [facility] ER 09/15/24 due to UR and lower abdominal discomfort. CT AP w con 09/15/24 - Negative for filling defects, masses, hydro, stones. 16Fr ortiz placed with 500 mL initial output. [facility] ER 09/17/24 due to lower abdominal pain and distention. Decreased urine output. Ortiz irrigated in the ER and pt subsequently started on Myrbetriq 50mg ER qd, which was started by ED. MRI brain w/wo con 09/29/24 [facility] - Small nonspecific subcortical white matter lesion of the posterolateral L frontal lobe, which can be seen in chronic small vessel ischemic disease, chronic sequela of migraines, and numerous other etiologies [facility] ER 10/13/24 d/t UR. Ortiz placed, 600 cc intial output. TODAY: Couldn't cath the morning after her EMG, presented to ER. Had brain MRI completed. Was referred to [facility] for MS workup. PCP has sent referral to [facility] twice but pt hasn't heard from [facility], pt has called twice. Has not had spinal MRI yet. -Pt states PCP order spine MRI. However, thorough review of chart messages shows PCP cancelled MRI and deferred to us for ordering- yet we were not notified Does have family hx of MS (aunt was dx at 26 yo). Referral for MS was placed yrs ago after surgery for endometriosis however this was during [facility] and the provider was not taking referrals and then pt moved to [place]. Has actually been enjoying the indwelling ortiz, no longer w bladder pain. Discussed removing ortiz and restarting CIC vs remaining indwelling ortiz for now with changes q4wks. Reports she has only been able to void 5x on her own since starting CIC. -Pt is happy with the ortiz and prefers to continue. -Offered to try mirabegron for bladder spasms. She has not been having bladder spasms. Can take prn for bladder spasms. Follow up after she has seen specialists or sooner if needed. Pt understands and agrees with plan. -Schedule MRI w/wo con whole spine (C, T, L) at [facility] for MS workup (PCP deferred this to urology) -Nurse visit around November 12 for 4 wk ortiz change, cont q4w -If pt develops infections with indwelling ortiz, can add prophylactic abx for day of cath changes Ordered: MRI Spine Cervical w/ + w/o Contrast MRI Spine Lumbar w/ + w/o Contrast MRI Spine Thoracic w/ + w/o Contrast 2. UTI (urinary tract infection) (N39.0: Urinary tract infection, site not specified) Currently being treated for UTI. Pt had burning, blood, odorous urine, and low grade fever. Also treated for yeast infection. Educated her ucxs will always be positive d/t indwelling ortiz/colonization so only tx for UTI if symptomatic. Ideally would place new ortiz for clean catch. Has been able to increase her fluid intake with ortiz. BMs qod, taking stool softener. Has had baseline bowel issues for a long time. MS can affect bladder/bowel similarly d/t similar nerves. If having issues w constipation, recommended suppository. -If pt develops infections with indwelling ortiz, can add prophylactic abx for day of cath changes 3. Interstitial cystitis (N30.10: Interstitial cystitis (chronic) without hematuria) Diagnosed with IC in July 2020 by outside urologist s/p hydrodistention with cocktail of heparin, DMSO, and Kenalog, dilation of mid urethral stricture with relief for 6 months. Her bladder capacity was 300cc at that time. S/p Avelino (more content not included)... Normal [facility] Comment on above: Result Comment: Elec tronically Signed By: Pao Macedo MD\.br\Date and Time Signed: 10/20/24 12:27 EDT\.br\Electronically Co-Signed By: Lacy Olivas\.br\Date and Time Co-Signed: 10/20/24 12:13 EDT Ambulatory Visit Summaryon 0 10-19-2024 Ambulatory Visit Summary Ambulatory Visit Summary SINAI LOCKWOOD :1995 Visit Date:10/19/2024 Ambulatory Visit Instructions Your Diagnosis Urinary retention UTI (urinary tract infection) Vaginal yeast infection Your Care Team Attending Physician - IVET LAWLER Primary Care Physician - VIET LAWLER This Is Your Medications List amitriptyline (amitriptyline 25 mg Tab) fluconazole (Diflucan 150 mg Tab) nitrofurantoin (Macrobid 100 mg Cap) Procedures Performed Cystoscopy (09/05/2024), Cystoscopy (12/02/2021), Cystourethroscopy with dilation of urethral stricture (07/24/2020), Cystoscopy (2019), History of tonsillectomy, Hysterectomy, Laparoscope, Laser uterosacral nerve ablation, AUDI - Laser uterosacral nerve ablation. Discharge Vitals Heart Rate (Peripheral) 83 Blood Pressure 117/78 Height 154 cm Height 61 in Weight 56.1 kg Weight 123.679 lb BMI 23.65 What to do next Scheduled Follow-Up Appointments Wednesday 11:15 AM EDT With: Pao Macedo MD Where: [facility] [address] [place] [address]- Wednesday 3:00 PM EDT With: Pao Macedo MD Where: [facility] [address], [address] [place] [address]- You Need to Complete the Following MRI Pelvis (Soft Tissue) w/ + w/o contrast, 10/19/24, Routine, Order for Future Visit, Transport Mode: Wheelchair, Reason: Other (please specify), Reason: neurogenic bladder, No, No, Urinary retention Neurogenic bladder Endometriosis MS (multiple sclerosis), pp_set_radiology_subspe cherise,... MRI Spine Lumbar w/ + w/o Contrast, 10/19/24, Routine, Order for Future Visit, Transport Mode: Wheelchair, Reason: Other (please specify), Reason: MS, No, No, Urinary retention Lumbar pain MS (multiple sclerosis) Neurogenic bladder, pp_set_radiology_sub[facility] Medications What How Much When Why Instructions New fluconazole (Diflucan 150 mg Tab) 1 Tablets By Mouth Every 72 hours Vaginal yeast infection Refills: 5 Pickup at [facility] New nitrofurantoin (Macrobid 100 mg Cap) 1 Capsules By Mouth 2 times a day UTI (urinary tract infection) Duration: 7 Days Pickup at [facility] Unchanged amitriptyline (amitriptyline 25 mg Tab) 1 Tablets By Mouth Every day Pharmacy Information [facility]: [address] [place], [place] [id number] [phone] Allergies Latex (Hives) penicillin (Hives) Problems Ongoing - Any problem that you are currently receiving treatment for. Adverse reaction to COVID-19 vaccine Arm skin lesion, right Asymptomatic microscopic hematuria Bladder pain BMI 22.0-22.9, adult BMI 23.0-23.9, adult BV (bacterial vaginosis) Endometriosis ESBL (extended spectrum beta-lactamase) producing bacteria infection Gross hematuria Incomplete bladder emptying Interstitial cystitis Musculoskeletal disorder involving upper trapezius muscle Myofascial muscle pain Nerve disorder Nerve pain Non-smoker Non-tobacco user Nonsmoker OAB (overactive bladder) Pelvic floor dysfunction Rectal bleeding Sinusitis Smoker Urinary retention Vaginal yeast infection Vomiting Historical - Any problem that you are no longer receiving treatment for. Endometriosis Interstitial cystitis Seizure Urinary retention Patient Survey You may receive a survey via text or e-mail asking about your office visit. Please share your experience with us by completing your survey. We appreciate your feedback and thank you for choosing us for your care. Normal [facility] Family Medicine Office/Clini c Noteon 10-19-2024 Family Medicine Office/Clinic Note Family Medicine Office/Clinic Note Chief Complaint ER f/u HPI Staff ER followup: Hospital:[facility] Visit date: 10/13 Symptoms the patient presented with: pressure in bladder and pain radiating down her legs. - Ortiz cath was placed Current concerns: Pt states she feels like she has a UTI, and has a horrible yeast infection History of Present Illness Sinai is a 29 year old female who presents for an ER follow up. She had an ENMG last week of the BLE which was negative of the BLE. After the ENMG she started with inability to void or straight cath. She ended up in the ED and they placed a ortiz and there was over 600cc of urine in the bladder. She is now experiencing some s/s UTI and a vaginal yeast infection. She still has the ortiz in place and she is seeing urology tomorrow to determine if they're removing the ortiz or not. I am going to get an MRI of the lumbar spine and pelvis prior to her going to see the specialist in November. She is still pending an appointment with the [facility] - they are suppose to call her regarding the brain mass. Staff HPI reviewed and accurate, Review of Systems PHQ Score Initial Depression Screen Score: 0 SCORE Physical Exam Vitals & Measurements HR: 83(Peripheral) BP: 117/78 SpO2: 98% HT: 61 in HT: 154 cm WT: 123.679 lb WT: 56.1 kg BMI: 23.65 continues with ortiz catheter - see urine General: alert, no acute distress ENMT: TM's clear, oral mucosa moist, no pharyngeal erythema or exudate Cardiovascular: regular rate and rhythm, normal peripheral perfusion Respiratory: Lungs CTA, respirations non labored Extremities: no deformity, no trauma Neurological: oriented x 4, LOC appropriate for age, CN II-XII intact, motor strength equal & normal bilaterally, sensation equal & normal bilaterally, speech normal Assessment/Plan 1. Urinary retention (R33.9: Retention of urine, unspecified) continue ortiz for now seeing uro tomorrow and Dr Castanon in November [facility] Ordered: MRI Pelvis (Soft Tissue) w/ + w/o contrast MRI Spine Lumbar w/ + w/o Contrast UA with Cult Rflx Urnls Dip Stick Auto w/o Microscopy POC 34850 Urnls Dip Stick Auto w/o Microscopy POC 59462 2. Vaginal yeast infection (B37.31: Acute candidiasis of vulva and vagina) Diflucan as prescribed Ordered: fluconazole, 150 mg = 1 tab(s), Oral, q72hr, # 4 tab(s), Refills(s) 5, Pharmacy: [facility], 154, cm, 10/19/24 12:48:00 EDT, Height/Length Dosing, 56.1, kg, 10/19/24 12:48:00 EDT, Weight Dosing 3. Neurogenic bladder (N31.9: Neuromuscular dysfunction of bladder, unspecified) MRI lumb and pelvis Ordered: acetaminophen-oxycodone , 1 tab(s), Oral, TID, 40 tab(s), Refill(s) 0, [facility], 154, cm, 09/22/24 13:08:00 EDT, Height/Length Dosing, 57.1, kg, 09/22/24 13:08:00 EDT, Weight Dosing MRI Pelvis (Soft Tissue) w/ + w/o contrast MRI Spine Lumbar w/ + w/o Contrast 4. UTI (urinary tract infection), (N39.0: Urinary tract infection, site not specified)UTI (urinary tract infection) macrobid as prescribed fu with urology tomorrow Ordered: nitrofurantoin, 100 mg = 1 cap(s), Oral, BID, X 7 day(s), # 14 cap(s), Refills(s) 0, Pharmacy: [facility], 154, cm, 10/19/24 12:48:00 EDT, Height/Length Dosing, 56.1, kg, 10/19/24 12:48:00 EDT, Weight Dosing Orders: baclofen, 10 mg = 1 tab(s), Oral, TID, # 30 tab(s), Refills(s) 1, Pharmacy: [facility], 154, cm, 09/22/24 13:08:00 EDT, Height/Length Dosing, 57.1, kg, 09/22/24 13:08:00 EDT, Weight Dosing fluconazole, 150 mg = 1 tab(s), Oral, Once, # 4 tab(s), Refills(s) 1, Pharmacy: [facility], 154, cm, 09/22/24 13:08:00 EDT, Height/Length Dosing, 57.1, kg, 09/22/24 13:08:00 EDT, Weight Dosing Follow-up No qualifying data available Problem List/Past Medical History Ongoing Adverse reaction to COVID-19 vaccine Arm skin lesion, right Asymptomatic microscopic hematuria Bladder pain BMI 22.0-22.9, adult BMI 23.0-23.9, adult BV (bacterial vaginosis) Endometriosis ESBL (extended spectrum beta-lactamase) producing bacteria infection Gross hematuria Incomplete bladder emptying Interstitial cystitis Musculoskeletal disorder involving upper trapezius muscle Myofascial muscle pain Nerve disorder Nerve pain Neurogenic bladder Non-smoker Non-tobacco user Nonsmoker OAB (overactive bladder) Pelvic floor dysfunction Rectal bleeding Sinusitis Smoker Urinary retention UTI (urinary tract infection) Vaginal yeast infection Vomiting Historical Endometriosis Interstitial cystitis Seizure Urinary retention Procedure/Surgical History Cystoscopy (09/05/2024), Cystoscopy (12/02/2021), Cystourethroscopy with dilation of urethral stricture (07/24/2020), Cystoscopy (2019), History of tonsillectomy, Hysterectomy, Laparoscope, Laser uterosacral nerve ablation, AUDI - Laser uterosacral nerve ablation. Medications amitriptyline 25 mg Tab, 25 mg= 1 tab(s), Oral, Daily, 3 refills (more content not included)... Normal [facility] Comment on above: Result Comment: Elec tronically Signed By: LOGAN GERMAN, IVET\.natalio\Date and Time Signed: 10/19/24 13:46 EDT UA with Cult Rflxon 10-20-19 Type of Urine collection method Ortiz Normal [facility] Comment on above: Performed By: #### 4 [id number] #### [facility] [address] [place] [address] URINALYSISOrdered By: Milly Harvey on 10-19-2024 UA Spec Desc Ortiz (10/19/24 1:23 PM) Normal [facility] UA Auto SS ED Note-Physicianon 10-15-19 ED Note-Physician ED Note-Physician Basic Information Time Seen: Bobo Mcintosh PA-C 10/13/2024 12:55 Chief Complaint normally self caths, hasn't been successful since 1500 yesterday. being worked up for MS dx. pressure in bladder, pain radiates down right leg which pt states isn't new History of Present Illness 29-year-old female comes to the ED for evaluation of urinary retention. She has chronic urinary retention and normally has to self cath. She states she is currently undergoing a workup for multiple sclerosis and had an EMG performed 2 days ago. Since that time she has been having difficulty with cathing herself. She thinks this is from nerve irritation. She had this problem in the past with other testing. She states she is able to get the catheter in, but the bladder spasms that she is not able to get any urine to drain. She has no other complaints or concerns. A fever, chills, nausea or vomiting. Review of Systems A 10 point review of systems is negative except as noted above. Medical and Surgical History: Reviewed and noted Social history: Lives at home Tobacco: Denies Physical Exam Vitals & Measurements T: 37.3 ???C(Oral) HR: 77(Monitored) RR: 16 BP: 123/84 SpO2: 96% HT: 154 cm WT: 56.7 kg BMI: 23.91 Nurses notes and vital signs reviewed and patient is not hypoxic. General: The patient appears well, resting comfortably. Skin: Warm, dry. Head: Atraumatic. Neck: No JVD. Eye: Normal conjunctiva. Ears, Nose, Mouth, and Throat: Moist mucous membranes. Cardiovascular: Strong distal pulses. Chest wall: Respiratory: Respirations are nonlabored. Back: Normal range of motion. Musculoskeletal: Normal ROM with no gross deformity. Gastrointestinal: Urological: Tender distended bladder. Neurological: Awake and alert. No focal deficits. Follows commands. Psychiatric: Cooperative. Medical Decision Making Patient presents with acute on chronic urinary retention. She attributes this to bladder spasms and nerve irritation secondary to recent EMG. Nursing was able to place a Ortiz catheter here. Over 600 cc of urine was returned the patient is feeling improved. She has required Ortiz catheters in the past. She does follow with urology. Her urine shows no infection, and she will be discharged home with the catheter in place to follow-up with her urologist for definitive management. Patient was encouraged to return to the ED if symptoms worsen or change. Assessment/Plan Urinary retention (R33.9: Retention of urine, unspecified) Orders: Urinary Catheter Insertion Disposition Plan Patient Discharge Condition Disposition: Discharged home Condition: Improved and stable Counseled: Patient and/or family were counseled to workup, results, treatment plan and follow-up recommendations Discharge Prescription List Prescriptions No active prescription medications Follow-up With When Contact Information Pao Macedo In 3 days 10/16/2024 EDT 278 [facility], [facility] [address] [phone]- [phone] Business (1) Additional Instructions: Patient Education Acute Urinary Retention, Female Attestation I performed a substantive part of the MDM during the patient???s E/M visit. I personally made or approved the documented management plan and acknowledge its risk of complications. (Independent Interpretation) My (EKG/X-Ray/US/CT) interpretation as above. (Discussion) Management/test interpretation discussed with APC. This report was transcribed using voice recognition software. Every effort was made to ensure accuracy, however, inadvertently computerized lunchroom worker mistakes may be present. Appropriate healthcare PPE was used in evaluating this patient. Problem List/Past Medical History Ongoing Adverse reaction to COVID-19 vaccine Arm skin lesion, right Asymptomatic microscopic hematuria Bladder pain BMI 22.0-22.9, adult BMI 23.0-23.9, adult BV (bacterial vaginosis) Endometriosis ESBL (extended spectrum beta-lactamase) producing bacteria infection Gross hematuria Incomplete bladder emptying Interstitial cystitis Musculoskeletal disorder involving upper trapezius muscle Myofascial muscle pain Nerve disorder Nerve pain Non-smoker Non-tobacco user Nonsmoker OAB (overactive bladder) Pelvic floor dysfunction Rectal bleeding Sinusitis Smoker Urinary retention Vaginal yeast infection Vomiting Historical Endometriosis Interstitial cystitis Seizure Urinary retention Procedure/Surgical History Cystoscopy (09/05/2024), Cystoscopy (12/02/2021), Cystourethroscopy with dilation of urethral stricture (07/24/2020), Cystoscopy (2019), History of tonsillectomy, Hysterectomy, Laparoscope, Laser uterosacral nerve ablation, AUDI - Laser uterosacral nerve ablation. Medications Inpatient No active inpatient medications Home amitriptyline 25 mg Tab, 25 mg= 1 tab(s), Oral, Daily, 3 refills baclofen 10 mg Tab, 10 mg= 1 tab(s), Oral, TID, 1 refills Diflucan 150 mg Tab, 150 (more content not included)... Normal [facility] Comment on above: Result Comment: Elec tronically Signed By: Bobo Mcintosh PA-C\.br\Date and Time Signed: 10/13/24 15:51 EDT\.br\Electronically Co-Signed By: Antony Singh DO\.natalio\Date and Time Co-Signed: 10/14/24 07:10 EDT Ambulatory Visit Summaryon 0 10-13-2024 Ambulatory Visit Summary Ambulatory Visit Summary GILESSINAI Jericho :1995 Visit Date:10/13/2024 Ambulatory Visit Instructions Your Care Team Attending Physician - Pepe Alegria PA-C Primary Care Physician - IVET LAWLER This Is Your Medications List Non-Formulary Medication acetaminophen-oxycodone (Percocet 5 mg-325 mg oral tablet) amitriptyline (amitriptyline 25 mg Tab) baclofen (baclofen 10 mg Tab) fluconazole (Diflucan 150 mg Tab) metronidazole mirabegron (Myrbetriq 50 mg oral tablet, extended release) Procedures Performed Cystoscopy (09/05/2024), Cystoscopy (12/02/2021), Cystourethroscopy with dilation of urethral stricture (07/24/2020), Cystoscopy (2019), History of tonsillectomy, Hysterectomy, Laparoscope, Laser uterosacral nerve ablation, AUDI - Laser uterosacral nerve ablation. What to do next Scheduled Follow-Up Appointments Wednesday. 2024 3:00 PM EDT With: Remington CURTIS, Pao Lemus Where: [facility] [address], [address] [place] [address]- Medications What How Much When Why Instructions Unchanged acetaminophen-oxycodone (Percocet 5 mg-325 mg oral tablet) 1 Tablets By Mouth 3 times a day Dysuria Dysfunction, bladder Unchanged amitriptyline (amitriptyline 25 mg Tab) 1 Tablets By Mouth Every day Unchanged baclofen (baclofen 10 mg Tab) 1 Tablets By Mouth 3 times a day Muscle spasm Unchanged fluconazole (Diflucan 150 mg Tab) 1 Tablets By Mouth Once Yeast infection Unchanged metronidazole 500 Milligram By Mouth Every 12 hours Unchanged mirabegron (Myrbetriq 50 mg oral tablet, extended release) 1 Tablets By Mouth Every day Unchanged Non-Formulary Medication See instructions Allergies Latex (Hives) penicillin (Hives) Problems Ongoing - Any problem that you are currently receiving treatment for. Adverse reaction to COVID-19 vaccine Arm skin lesion, right Asymptomatic microscopic hematuria Bladder pain BMI 22.0-22.9, adult BMI 23.0-23.9, adult BV (bacterial vaginosis) Endometriosis ESBL (extended spectrum beta-lactamase) producing bacteria infection Gross hematuria Incomplete bladder emptying Interstitial cystitis Musculoskeletal disorder involving upper trapezius muscle Myofascial muscle pain Nerve disorder Nerve pain Non-smoker Non-tobacco user Nonsmoker OAB (overactive bladder) Pelvic floor dysfunction Rectal bleeding Sinusitis Smoker Urinary retention Vaginal yeast infection Vomiting Historical - Any problem that you are no longer receiving treatment for. Endometriosis Interstitial cystitis Seizure Urinary retention Patient Survey You may receive a survey via text or e-mail asking about your office visit. Please share your experience with us by completing your survey. We appreciate your feedback and thank you for choosing us for your care. Normal [facility] ED Clinical Summaryon 2024 ED Clinical Summary ED Clinical Summary [address] [address] ED Clinical Summary Person Information Name: SINAI LOCKWOOD Melany/[facility] Age: 29 Years : 1995 Sex: Female Language: Panamanian PCP: IVET LAWLER Marital Status: Visit Id: Visit Reason: Abdominal pain; Abdominal distention; Urinary retention; SENT [facility]VIENTENT CARE - URINATION ISSUE/CATH ISSUES Speciality: Acuity: 3 Enc Type: Emergency Med Service: Emergency Arrival: 10/13/2024 12:45:57 Discharge: 10/13/2024 14:16:34 LOS: 000 01:31 Checkin: 10/13/2024 12:45:57 Checkout: 10/13/2024 14:16:34 Dispo Type: Home (Routine DC) EVENTS: Event Name Event Status Request Date/Time Start Date/Time Complete Date/Time Arrive Complete 10/13/2024 12:45:57 10/13/2024 12:45:57 10/13/2024 12:45:57 Document Home Meds Request 10/13/2024 12:45:57 Triage Complete 10/13/2024 12:45:57 10/13/2024 12:53:24 10/13/2024 12:53:24 Bed Assign Complete 10/13/2024 12:47:51 10/13/2024 12:47:51 10/13/2024 12:47:51 Dr Exam Complete 10/13/2024 12:47:51 10/13/2024 12:55:24 10/13/2024 12:55:24 RN Exam Complete 10/13/2024 12:47:51 10/13/2024 13:44:14 10/13/2024 13:44:14 Registration Complete 10/13/2024 12:55:24 10/13/2024 13:09:49 10/13/2024 13:09:49 Dr Exam Complete 10/13/2024 12:59:40 10/13/2024 12:59:40 10/13/2024 12:59:40 Patient Care Request 10/13/2024 12:59:57 Patient Care Complete 10/13/2024 12:59:57 10/13/2024 13:36:48 Pending Labs Complete 10/13/2024 12:59:58 10/13/2024 13:57:15 Reg Complete Request 10/13/2024 13:09:49 Reg Bed Request Complete 10/13/2024 13:09:49 10/13/2024 13:09:49 10/13/2024 13:09:49 Discharge Complete 10/13/2024 14:05:51 10/13/2024 14:16:38 10/13/2024 14:16:38 Transfer Complete 10/13/2024 14:16:38 10/13/2024 14:16:38 10/13/2024 14:16:38 ADDRESS: [facility] [phone] PHYS DOC NOTES: MEDICAL INFORMATION: Prescriptions Given: Medications to Continue with No Changes Other Medications acetaminophen-oxycodone (Percocet 5 mg-325 mg oral tablet) 1 Tablets By Mouth 3 times a day. Refills: 0. amitriptyline (amitriptyline 25 mg Tab) 1 Tablets By Mouth every day. Refills: 3. baclofen (baclofen 10 mg Tab) 1 Tablets By Mouth 3 times a day. Refills: 1. fluconazole (Diflucan 150 mg Tab) 1 Tablets By Mouth Once. Refills: 1. metronidazole 500 Milligram By Mouth every 12 hours. mirabegron (Myrbetriq 50 mg oral tablet, extended release) 1 Tablets By Mouth every day. Refills: 0. Non-Formulary Medication PATIENT EDUCATION INFORMATION: Instructions: Acute Urinary Retention, Female Follow up: With: Address: When: Pao Dexter, [facility] [address], [facility] [address] [place] [phone] Business (1) In 3 days 10/16/2024 DIAGNOSIS: Urinary retention Normal [facility] ED Patient Summaryon 025 ED Patient Summary ED Patient Summary [address] [address] Patient Discharge Instructions Person Information Name: SINAI LOCKWOOD Age: 29 Years Arrival Date: 10/13/2024 12:45:57 Discharge Diagnosis: Urinary retention Primary Care Physician: IVET LAWLER Provider Information Primary Provider: Antony Singh DO Advanced Meter Supervisor:Bobo Mcintosh PA-C The exam and treatment you received in the Emergency Department were for an urgent problem and are not intended as complete care. It is important that you follow up with a doctor, nurse practitioner, or physician???s retail event and sales assistant for ongoing care. If your symptoms become worse or you do not improve as expected and you are unable to reach your usual health care provider, you should return to the Emergency Department. We are available 24 hours a day. SINAI LOCKWOOD has been given the following list of patient education materials, prescriptions and follow-up instructions: Follow-up Instructions: With: Address: When: Pao Macedo [address] [place], [place] [id number] [phone] Business (1) In 3 days 10/16/2024 In the event that this physician does not participate in your insurance network, please consult with your insurance company to find a nearby participating provider. Patient Education Materials: Acute Urinary Retention, Female A MESSAGE TO ALL PATIENTS REGARDING OPIOIDS PRESCRIPTION OPIOIDS: WHAT YOU NEED TO KNOW Prescription opioids can be used to help relieve [id number] pain and are often prescribed following a surgery or injury, or for certain health conditions. These medications can be an important part of the treatment but also come with serious risks. It is important to work with your healthcare provider to make sure you are getting the safest, most effective care. WHAT ARE THE RISKS AND SIDE EFFECTS OF OPIOID USE? Prescription opioids carry serious risks of addiction and overdose, especially with prolonged use. An opioid overdose, often marked by slowed breathing, can cause sudden . The use of prescription opioids can have a number of side effects as well, even when taken as directed: ??? Tolerance???meaning you might need to take more of the medication for the same pain relief ??? Physical dependence???meaning you have symptoms of withdrawal when a medication is stopped ??? Increased sensitivity to pain ??? Constipation ??? Nausea, vomiting, and dry mouth ??? Sleepiness and dizziness ??? Confusion ??? Depression ??? Low levels of testosterone that can result in lower sex drive, energy, and strength ??? Itching and sweating RISKS ARE GREATER WITH: ??? History of drug misuse, substance use disorder, or overdose ??? Mental health conditions (such as depression or anxiety) ??? Sleep apnea ??? Older age (65 years and older) ??? Avoid alcohol while taking prescription opioids. Also, unless specifically advised by your health care provider, medications to avoid include: ??? Benzodiazepines (such as Xanax or Valium) ??? Muscle relaxants (such as Soma or Flexeril) ??? Hypnotics (such as Ambien or Lunesta) ??? Other prescription opioids KNOW YOUR OPTIONS Talk to your health care provider about ways to manage your pain that don???t involve prescription opioids. Some of these options may actually work better and have fewer risks and side effects. Options may include: ??? Pain relievers such as acetaminophen, ibuprofen, and naproxen ??? Some medication that are also used for depression or seizures ??? Physical therapy and exercise ??? Cognitive behavioral therapy, a psychological, goal-directed approach, in which patients learn how to modify physical, behavioral, and emotional triggers of pain and stress. IF YOU ARE PRESCRIBED OPIOIDS FOR PAIN: ??? Never take opioids in greater amounts or more often than prescribed. ??? Follow up with your primary health care provider. o Work together to create a plan on how to manage your pain. o Talk about ways to help manage your pain that don???t involve prescription opioids. o Talk about any and all concerns and side effects. ??? Help prevent misuse and abuse o Never sell or share prescription opioids. o Never use another person???s prescription opioids. ??? Store prescription opioids in a secure place and out of reach of others (this may include visitors, children, friends, and family). ??? Safely dispose of unused prescription opioids: Find your community drug take-back program or your pharmacy mail-back program, or flush them down the toilet, following guidance from the Food and Drug Administration (www.fda.gov/Drugs/Reso urcesForYou). ??? Visit www.cdc.gov/drugoverdos e to learn about the risks of opioids abuse and overdose. ??? If you believe you may be struggling with addiction, tell your health c (more content not included)... Normal [facility] URINALYSISOrdered By: SYSTEM SYSTEM on 10-13-2024 Bilirubin Ql (U) Negative Normal Negativemg/dL [facility] UA Auto SS Clarity (U) Clear (10/13/24 1:34 PM) Normal Clear [facility] UA Auto SS Color (U) Colorless 1 *ABN* (10/13/24 1:34 PM) Invalid Interpretation Code Yellow [facility] UA Auto SS Comment on above: Interpretive Data: M icroscopic readings are only performed on those samples that meet specific criteria set forth by [facility] Laboratory. Epithelial cells.squamous Auto (Urine sed) [#/Area] 0-2 graded/HPF Invalid Interpretation Code [facility] UA Auto SS Glucose Ql (U) Negative Normal Negativemg/dL [facility] UA Auto SS Hemoglobin Auto test strip (U) [Mass/Vol] Negative Normal Negativemg/dL [facility] UA Aut o SS Ketones Auto test strip Ql (U) Negative Normal Negativemg/dL [facility] UA Auto SS Leukocyte esterase Auto test strip Ql (U) Negative Normal NegativeLeu/u L [facility] UA Auto SS Mucus Auto Ql (U) Negative Normal Negativegr patricio d/LPF [facility] UA Auto SS Nitrite Auto test strip Ql (U) Negative Normal Negativemg/dL [facility] UA Auto SS pH (U) 6.5 *NA* (10/13/24 1:34 PM) Invalid Interpretation Code 5.0 - 9.0 [facility] UA Auto SS Protein Ql (U) Negative Normal Negativemg/dL [facility] UA Auto SS RBC Ql (U) 0-3 graded/HPF Normal 0-3graded/HPF [facility] UA Auto SS Specific gravity (U) [Rel density] 1.003 *NA* (10/13/24 1:34 PM) Invalid Interpretation Code 1.005 - 1.030 [facility] UA Auto SS Urobilinogen (U) [Mass/Vol] Negative Normal Negativemg/dL [facility] UA Auto SS WBC Auto (Urine sed) [#/Area] 0-5 graded/HPF Normal 0-5graded/HPF [facility] UA Auto SS URINALYSISOrdered By: Tia Duarte on 10-13-2024 UA Spec Solange Jacobsoney (10/13/24 1:34 PM) Normal [facility] UA Auto SS Gabriela 10-06-2024 CNPN Telephone (UROLAV) SINAI LOCKWOOD ([id number]) 1995 F Date Time Provider Department 10/06/24 [facility] CASTANON During your visit today, we recorded the following information about you: Neisha Huynh MA 10/06/2024 11:58 AM Signed We received from [facility], Date of Medical Records Recv'd, 09-18-24. I gave the papers to PSS to scan into the Pt's chart. Then I will place in Dr. Castanon's work bin the papers to review. This Pt is already scheduled for a Consult appt with Dr. Castanon for 11-14-24. Neisha Huynh MA 10/06/2024 1:43 PM Signed [facility], Medical Records Recv'd, 09-18-24. Record are scanned into the pt's chart. The paper copy in Dr. Castanon's work bin for review. Allergies As of Date: 10/06/2024 (Not on File) Date Reviewed: Never Reviewed Reason for Visit: Deandre Ty 09-18-24 Clinical Records Recv'd [Other] Problem List As Of Date: 10/06/2024 (None) Encounter Status:Closed by NEISHA HUYNH on 10/06/24 Normal [facility] MRI Brain w/ + w/o Contrasto n 10-02-2024 MRI Brain w/ + w/o Contrast Exam Date/Time: 09/29/2024 19:16 EDT Reason for Exam: G37.9;Demyelinating disease Report IMPRESSION: SMALL NONSPECIFIC SUBCORTICAL WHITE MATTER LESION OF THE POSTEROLATERAL LEFT FRONTAL LOBE, WHICH CAN BE SEEN IN CHRONIC SMALL VESSEL ISCHEMIC DISEASE, CHRONIC SEQUELA OF MIGRAINES, AND NUMEROUS OTHER ETIOLOGIES; INCLUDING VASCULITIS, DEMYELINATION SUCH MANUSCRIPT, AND INFECTION. OTHERWISE, NEGATIVE HEAD MRI WITHOUT AND WITH CONTRAST. EXAM: MRI Brain w/ + w/o Contrast DATE: 09/29/2024 6:27 PM CLINICAL HISTORY: Demyelinating disease, G37.9. Technologist Comments: pt states MRI ordered for MS testing but has never been diagnosed w/ MS; pt sates bladder issues - difficulty urinating, frequent UTI's; denies any other symptoms/complaints COMPARISON: Head CT 12/17/2020. TECHNIQUE: Multiplanar MR imaging of the head was performed before and after uneventful intravenous administration of contrast. FINDINGS: Acute Change: There is no evidence of restricted diffusion to suggest an acute infarct. Hemorrhage: No evidence of intracranial hemorrhage. Mass Lesion/ Mass Effect: No evidence of an intracranial mass or extra-axial fluid collection. No significant mass effect. There is no abnormal enhancement identified. Chronic Change: Approximately 5 to 6 mm ill-defined subcortical white matter change of the posterolateral left frontal lobe (Series 6, Image 17) and (Series 10, Image 81). No other significant white matter changes identified elsewhere. Parenchyma: No significant volume loss for age. The brain parenchyma is otherwise within normal limits of signal intensity and morphology. Ventricles: Normal caliber and morphology. Skull Base: Hypothalamic and pituitary region are grossly normal. Craniocervical junction is normal. No significant marrow replacement process. Vasculature: Major intracranial arterial structures, and dural venous sinuses show typical flow void, suggesting patency. Other: Paranasal sinuses and mastoid air cells are essentially clear. The orbits are Report unremarkable. The extracranial soft tissues are unremarkable. Contrast: Vueway Contrast amount in ml's: 5.50 Ordering Provider: BEBETO CARTY FINAL REPORT Dictated: 10/02/2024 8:53 am Seth Stephenson MD Signed (Electronic Signature): 10/02/2024 8:53 am Signed by: Seth Stephenson MD Transcribed by: BHAVYA Technologist: CAITLYN Daugherty [facility] Provider Letteron 09-28-2024 Provider Letter Provider Letter [address] [place] [address] September 28, 2024 SINAI Bhardwaj [place] [address] : 1995 To Whom It May Concern, Please excuse above patient from work. Date of Illness: From: 09/22/2024 To: 10/16/2024 May Return to Work On: 10/16/2024 Restrictions: none at this time Comments: none at this time. Sincerely, Bebeto Carty NP Normal [facility] Ambulatory Visit Summaryon 0 09-27-2024 Ambulatory Visit Summary Ambulatory Visit Summary SNIAI LOCKWOOD :1995 Visit Date:09/27/2024 Ambulatory Visit Instructions Your Diagnosis Gross hematuria Urinary retention Interstitial cystitis OAB (overactive bladder) Pelvic floor dysfunction Myofascial muscle pain Your Care Team Attending Physician - Inés Be PA-C Primary Care Physician - IVET LAWLER This Is Your Medications List Non-Formulary Medication acetaminophen-oxycodone (Percocet 5 mg-325 mg oral tablet) amitriptyline (amitriptyline 25 mg Tab) baclofen (baclofen 10 mg Tab) fluconazole (Diflucan 150 mg Tab) metronidazole mirabegron (Myrbetriq 50 mg oral tablet, extended release) nitrofurantoin (Macrobid 100 mg Cap) Procedures Performed Cystoscopy (09/05/2024), Cystoscopy (12/02/2021), Cystourethroscopy with dilation of urethral stricture (07/24/2020), Cystoscopy (2019), History of tonsillectomy, Hysterectomy, Laparoscope, Laser uterosacral nerve ablation, AUDI - Laser uterosacral nerve ablation. Discharge Vitals Heart Rate (Peripheral) 85 Respiratory Rate 16 Blood Pressure 128/84 Weight 57.1 kg Weight 125.884 lb What to do next Scheduled Follow-Up Appointments Wednesday. 2024 3:00 PM EDT With: Remington CURTIS, Pao Lemus Where: [facility] [address], [address] [place] [address]- Medications What How Much When Why Instructions Unchanged acetaminophen-oxycodone (Percocet 5 mg-325 mg oral tablet) 1 Tablets By Mouth 3 times a day Dysuria Dysfunction, bladder Unchanged amitriptyline (amitriptyline 25 mg Tab) 1 Tablets By Mouth Every day Unchanged baclofen (baclofen 10 mg Tab) 1 Tablets By Mouth 3 times a day Muscle spasm Unchanged fluconazole (Diflucan 150 mg Tab) 1 Tablets By Mouth Once Yeast infection Unchanged metronidazole 500 Milligram By Mouth Every 12 hours Unchanged mirabegron (Myrbetriq 50 mg oral tablet, extended release) 1 Tablets By Mouth Every day Unchanged nitrofurantoin (Macrobid 100 mg Cap) 1 Capsules By Mouth 2 times a day UTI (urinary tract infection) Duration: 7 Days Unchanged Non-Formulary Medication See instructions Allergies Latex (Hives) penicillin (Hives) Problems Ongoing - Any problem that you are currently receiving treatment for. Adverse reaction to COVID-19 vaccine Arm skin lesion, right Asymptomatic microscopic hematuria Bladder pain BMI 22.0-22.9, adult BMI 23.0-23.9, adult BV (bacterial vaginosis) Endometriosis Gross hematuria Incomplete bladder emptying Interstitial cystitis Musculoskeletal disorder involving upper trapezius muscle Myofascial muscle pain Nerve disorder Nerve pain Non-smoker Non-tobacco user Nonsmoker OAB (overactive bladder) Pelvic floor dysfunction Rectal bleeding Sinusitis Smoker Urinary retention Vaginal yeast infection Vomiting Historical - Any problem that you are no longer receiving treatment for. Endometriosis Interstitial cystitis Seizure Urinary retention Patient Survey You may receive a survey via text or e-mail asking about your office visit. Please share your experience with us by completing your survey. We appreciate your feedback and thank you for choosing us for your care. Normal [facility] C Urineon 09-27-2024 Bacteria identified Cx Nom (U) Microbiology PROCEDURE: Urine Culture [R1] SOURCE: U Cath BODY SITE: COLLECTED DATE/TIME: 09/22/2024 13:27 EDT RECEIVED DATE/TIME: 09/23/2024 12:18 EDT START DATE/TIME: 09/23/2024 12:19 EDT FREE TEXT SOURCE: CIERSEZWSKI ROOF TECHNICIAN-LOGAN Graham, IVET COONEY FINAL REPORTS Final Report [] Verified Date/Time: 09/27/2024 11:25 EDT 75,000 cfu/ml Escherichia coli ESBL SUSCEPTIBILITY RESULTS ____ LEGEND: S=Susceptible, N/R=Not Reported, Blank=Data not available, or drug not advisable or tested, I=Intermediate, ESBL=Extended spectrum beta-lactamase, R=Resistant, TFG=Thymidine-dependent strain, RANJEET=Beta-lactamase positive, PATRICIA=mcg/m;(mg/L), S*=Predicted susceptible interp, R*=Predicted resistant interp ___ ECESBL Antibiotic PATRICIA Dilutn PATRICIA Interp Ampicillin >16 R* Ampicillin/ 16/8 I Sulbactam Aztreonam >16 ESBL Cefazolin >16 R* Cefepime >16 R* Ceftazidime 8 ESBL Ceftazidime/ <=8 S Avibactam Ceftriaxone >2 ESBL Cefuroxime >16 R* Ciprofloxacin <=0.25 S Ertapenem <=0.5 S Gentamicin >8 R Levofloxacin <=0.5 S Meropenem <=1 S Nitrofurantoin <=32 S Piperacillin/ <=8 S Tazobactam Tetracycline >8 R Tobramycin 8 I Trimethoprim/ >2/38 R Sulfa Performing Locations R1: This test was performed at: [facility], [address] [place] [address], [id number] , [place], Normal [facility] Comment on above: Performed By: #### [id number] #### [facility] [address] [place] [id number] Urology Office/Clinic Noteon 09-27-2024 Urology Office/Clinic Note Urology Office/Clinic Note Chief Complaint Gross hematuria after self cathing HPI Staff 29 yr old female here to discuss hematuria. pt does self cath. Caths 4-5x a day. Wednesday only cath 3 times. yesterday around 10:30 she has some fleshy stuff come out and after that had blood after every cath. Dx: Urinary retention, Yeast infection of vagina, Interstitial cystitis, Gross hematuria, OAB, Incomplete bladder emptying, Pelvic floor dysfunction, Myofascial muscle pain Since yesterday, everytime she CICs, she has a lot of blood. Pt has lower abdominal pain and nerve pain that goes down her right leg. BBSQ: 14 History of Present Illness I have reviewed and verified the staff HPI to be accurate for this encounter. Review of Systems PHQ Score Initial Depression Screen Score: 0 SCORE no fever, chills, malaise, myalgia. no abdominal pain, nausea, vomiting. Physical Exam Vitals & Measurements HR: 85(Peripheral) RR: 16 BP: 128/84 WT: 57.1 kg WT: 125.884 lb General: Well developed, well nourished, in no acute distress. Assessment/Plan 29 year old female patient who presents today for evaluation of gross hematuria after CIC KML pt 1. Gross hematuria (R31.0: Gross hematuria) Micro UA 06/2022 neg (0-3 RBCs) Prior cystoscopy negative for concerning lesions ~ done for IC. Never a smoker. CT with contrast 09/25/23 [facility] - neg. Urine cytology 07/27/24 - negative. S/p cysto, hydrodistention, instillation of bladder cocktail for IC 09/05/24 - neg for b.t. CT AP w con 09/15/24 - negative for filling defects, masses, hydro, stones. No UA provided at today's visit *Pt currently being treated for UTI by PCP Patient presents today for evaluation of gross hematuria after CIC that began yesterday. Pt started Macrobid 100 mg BID x 7 days yesterday (09/26/2024) for UTI, prescribed by PCP. UCx 09/22/24 with 75k E. Coli ESBL, R to most cephalosporins, bactrim and tetracyclines. Patient showed me a photo on her phone of the hematuria she has been experiencing - photo w/ light pink-tinged streak noted within mostly clear urine. Patient reports blood began yesterday and only happens after she caths herself. She currently performs CIC 4???5x/day due to multiple episodes of urinary retention and difficulty with voiding on her own/loss of sensation to void. States cath size does not seem too big (14 Fr), able to insert cath without resistance. She does report resistance when removing catheter, likely due to her pelvic floor dysfunction. Patient advised to try to relax her pelvic floor when removing catheter. I informed patient that hematuria likely due to trauma from CIC, exacerbated by acute urinary tract infection. Recommend patient continue antibiotics until completion and use moderate amount of lubricant when she caths. Recommend she continues to increase her fluid intake, avoid bladder irritants. If hematuria not improving, contact our office. Patient is agreeable to plan and verbalized understanding. All questions and concerns answered. ER for fever, chills, N/V, severe flank pain. -Continue Macrobid 100 mg BID x 7 days for UTI -Recommend ample use of lubrication -Increase water intake, avoid bladder irritants -Patient knows to contact our office if hematuria does not improve 2. Urinary retention (R33.9: Retention of urine, unspecified) Pt presented to [facility] ER 09/15/24 due to UR and lower abdominal discomfort. CT AP w con 09/15/24 - negative for filling defects, masses, hydro, stones. 16Fr ortiz placed with 500 mL initial output. Pt presented to [facility] ER 09/17/24 due to lower abdominal pain and distention. Decreased urine output. Ortiz irrigated in the ER and pt subsequently started on Myrbetriq 50mg ER qd, which was started by ED. Patient had suspected bladder spasms with catheter in place that were very painful, likely increased sensitivity given IC. Patient denied constipation at this time. Urinary retention 10 days post cystoscopy was suspected to be due to fluid overload and inability to relax to void. Patient had Ortiz removed at last visit and was taught CIC with recommendations for timed voids and CIC q4hrs. Patient to increase frequency of CIC if volumes > 500 mL. Patient states since last visit, she has been slowly losing sensation to void. States on Wednesday she went 8 hours without feeling any sensation to void. She currently performs CIC 4-5 times per day, volumes range 200-300 mL. She reports difficulty voiding on her own. Patient has family history of MS in maternal aunt. She is currently undergoing neurological workup per PCP. Pending MRI brain/lumbar spine. Patient was also referred to [facility] for further evaluation of her urinary symptoms. Patient states she has [facility] appointment at the end of November. Patient still taking Myrbetriq 50 mg ER daily. Recommend she discontinue Myrbetriq at this time, which could be contributing to urinary retention. She is agreeable. -Discontinue Myrbetriq -Timed voids, relax during urination -Co (more content not included)... Normal [facility] Comment on above: Result Comment: Elec tronically Signed By: [place] DAVIES, Inés\.br\Date and Time Signed: 09/27/24 14:12 EDT Ambulatory Visit Summaryon 0 09-22-2024 Ambulatory Visit Summary Ambulatory Visit Summary SINAI LOCKWOOD [place] :1995 Visit Date:09/22/2024 Ambulatory Visit Instructions Your Diagnosis Pelvic floor dysfunction OAB (overactive bladder) Urinary retention Dysuria Dysfunction, bladder Muscle spasm Yeast infection Your Care Team Attending Physician - IVET LAWLER Primary Care Physician - IVET LAWLER This Is Your Medications List acetaminophen-oxycodone (Percocet 5 mg-325 mg oral tablet) baclofen (baclofen 10 mg Tab) fluconazole (Diflucan 150 mg Tab) Contact prescribing physician if questions or concerns Non-Formulary Medication amitriptyline (amitriptyline 25 mg Tab) metronidazole mirabegron (Myrbetriq 50 mg oral tablet, extended release) [Image Removed: STOP]Stop taking these medications acetaminophen-hydrocodo ne ([place] 325 mg-5 mg oral tablet) Procedures Performed Cystoscopy (09/05/2024), Cystoscopy (12/02/2021), Cystourethroscopy with dilation of urethral stricture (07/24/2020), Cystoscopy (2019), History of tonsillectomy, Hysterectomy, Laparoscope, Laser uterosacral nerve ablation, AUDI - Laser uterosacral nerve ablation. Discharge Vitals Heart Rate (Peripheral) 82 Respiratory Rate 16 Blood Pressure 118/72 Height 154 cm Height 61 in Weight 57.1 kg Weight 125.884 lb BMI 24.08 What to do next Scheduled Follow-Up Appointments Wednesday 3:00 PM EDT With: Remington CURTIS, Pao Lemus Where: [facility] [address], [address] [place] [address]- You Need to Complete the Following MRI Brain w/ + w/o Contrast, 09/22/24, Routine, Order for Future Visit, Transport Mode: Wheelchair, Reason: Demyelinating disease, No, Yes, Demyelinating disease Pelvic floor dysfunction OAB (overactive bladder) Urinary retention Dysuria Dysfunction, bladder, pp_set_rad... Medications What How Much When Why Instructions New acetaminophen-oxycodone (Percocet 5 mg-325 mg oral tablet) 1 Tablets By Mouth 3 times a day Dysuria Dysfunction, bladder Pickup at [facility] New baclofen (baclofen 10 mg Tab) 1 Tablets By Mouth 3 times a day Muscle spasm Refills: 1 Pickup at [facility] New fluconazole (Diflucan 150 mg Tab) 1 Tablets By Mouth Once Yeast infection Refills: 1 Pickup at [facility] Unchanged amitriptyline (amitriptyline 25 mg Tab) 1 Tablets By Mouth Every day Contact prescribing physician if questions or concerns Unchanged metronidazole 500 Milligram By Mouth Every 12 hours Contact prescribing physician if questions or concerns Unchanged mirabegron (Myrbetriq 50 mg oral tablet, extended release) 1 Tablets By Mouth Every day Contact prescribing physician if questions or concerns Unchanged Non-Formulary Medication See instructions Contact prescribing physician if questions or concerns Pharmacy Information [facility]: [address] [place], [place] [id number] [phone] What How Much When Comments Stop Taking acetaminophen-hydrocodo ne ([place] 325 mg-5 mg oral tablet) 1 Tablets By Mouth Every 6 hours as needed for for pain severe pain Medications and Immunizations Administered Not Given influenza virus vaccine, inactivated, Patient Refuses Allergies Latex (Hives) penicillin (Hives) Problems Ongoing - Any problem that you are currently receiving treatment for. Adverse reaction to COVID-19 vaccine Arm skin lesion, right Asymptomatic microscopic hematuria BMI 22.0-22.9, adult BMI 23.0-23.9, adult BV (bacterial vaginosis) Endometriosis Gross hematuria Incomplete bladder emptying Interstitial cystitis Musculoskeletal disorder involving upper trapezius muscle Myofascial muscle pain Non-smoker Non-tobacco user Nonsmoker OAB (overactive bladder) Pelvic floor dysfunction Rectal bleeding Sinusitis Smoker Urinary retention Vaginal yeast infection Vomiting Historical - Any problem that you are no longer receiving treatment for. Endometriosis Interstitial cystitis Seizure Urinary retention Patient Survey You may receive a survey via text or e-mail asking about your office visit. Please share your experience with us by completing your survey. We appreciate your feedback and thank you for choosing us for your care. Normal [facility] Family Medicine Office/Clini c Noteon 09-22-2024 Family Medicine Office/Clinic Note Family Medicine Office/Clinic Note HPI Staff ER followup: Hospital: [facility] Visit date: 09/17/24 Symptoms the patient presented with: urine retention Current concerns: pt stats today that she is having a lot of vaginal issues with pain and infection, pain today 12/12 pt stated is struggling with the self cath due to the brand pt stated she is looking for a different brand but lubing the cath seems to help pt also stated that the bleeding has stopped pt just concerned about the infection and the pain pt also stated that when she lived in [facility] that she was seeing [facility] and they were going to start testing her for MS and pt would like to discuss starting that back up due to she was told because of all the pain and nerve issues she has they wanted to test her pt stated that three different / joelle brought up testing for MS and she hs Family HX of MS History of Present Illness Sinai is a 29 year female who presents for a follow up examination. She saw Dr Macedo recently for a hydrodistension of the bladder and a DSML cocktail to coat the bladder. Sinai was then unable to urinate on her own and she went to the ED - they put the ortiz into the vaginal canal initially, but once they did a CT they discovered they were in the wrong canal, and her catheter was replaced. She then had 600ml urine output. Since these procedures September 05, she has been unable to urinate on her own. She is now straight catching herself 6x per day. She is unable to produce urine on her own. She is using a vaginal suppository of Valium and baclofen at HS to relax the bladder muscles as well as myrbetriq. Right thigh numbness/pain: after her procedure she developed right upper thigh numbness/stabbing pain that starts near the groin and radiated to the medial aspect of the right knee. Initially she was unable to use her right leg and her had to lift her leg. She is able to ambulate at this point but continues with the right upper thigh issues. BV: long personal history of BV with multiple treatments. Currently she is using metronidazole suppositories daily x 6 months. She is not currently sexually active due to her bladder issues. I want her to hold off on the metronidazole for the time being until we get some additional testing done on her and figure out her bladder situation. She has also developed a yeast infection due to the metronidazole and I will treat her with diflucan. She will follow with her MANUFACTURE SPECIALIST (dr Callejas) as needed, but for now she is going to hold the BV tx. Of note, she did test positive for mycoplasma in the past and completed a course of doxy. Her most recent vaginal cultures have only revealed BV. I am planning to treat her for BV as well (he is my patient). Family history: maternal aunt has MS and her maternal great aunt had MS. Her aunt was diagnosed in her 20's. Plan: MRI brain and lumbar spine, [facility] BLE, refill percocet for pain, start baclofen oral as needed for muscles spasm, hold metronidazole vaginal for now, and start diflucan for yeast infection. [facility] and staff HPI reviewed Review of Systems PHQ Score Initial Depression Screen Score: 0 SCORE Physical Exam Vitals & Measurements HR: 82(Peripheral) RR: 16 BP: 118/72 SpO2: 98% HT: 154 cm HT: 61 in WT: 125.884 lb WT: 57.1 kg BMI: 24.08 right thigh numbness and pain radiating medially to the knee. General: alert, no acute distress ENMT: TM's clear, oral mucosa moist, no pharyngeal erythema or exudate Cardiovascular: regular rate and rhythm, normal peripheral perfusion Respiratory: Lungs CTA, respirations non labored Extremities: no deformity, no trauma Neurological: oriented x 4, LOC appropriate for age, CN II-XII intact Assessment/Plan 1. Pelvic floor dysfunction (M62.89: Other specified disorders of muscle) Continue straight cath for now continue myrbetriq start oral baclofen to see if this helps with bladder spasms consider referral to neuro Referral placed to Dr Sinai Castanon CCDavid Ordered: EMG Bilateral Lower Extremity (BLE) [facility] External Ambulatory Referral MRI Brain w/ + w/o Contrast 2. OAB (overactive bladder) (N32.81: Overactive bladder) see 1 Ordered: [facility] External Ambulatory Referral MRI Brain w/ + w/o Contrast 3. Urinary retention (R33.9: Retention of urine, unspecified) see 1 Ordered: EMG Bilateral Lower Extremity (BLE) [facility] External Ambulatory Referral MRI Brain w/ + w/o Contrast 4. Dysuria (R30.0: Dysuria) see1 Ordered: acetaminophen-oxycodone , 1 tab(s), Oral, TID, 40 tab(s), Refill(s) 0, [facility], 154, cm, 09/22/24 13:08:00 EDT, Height/Length Dosing, 57.1, kg, 09/22/24 13:08:00 EDT, Weight Dosing EMG Bilateral Lower Extremity (BLE) [facility] External Ambulatory Referral MRI Brain w/ + w/o Contrast Urine Culture Urnls Dip Stick Auto w/o Microscopy POC [id number] 5. Muscle spasm (M62.838: Other muscle spasm) start baclofen as needed Ordered: baclofen, 10 mg = 1 tab(s), Oral, TID, # 30 tab(s), Refills(s) 1, Pha (more content not included)... Normal [facility] Comment on above: Result Comment: Elec tronically Signed By: IVET LAWLER\.br\Date and Time Signed: 09/22/24 17:25 EDT Provider Letteron 09-22-2024 Provider Letter Provider Letter [address] [place] [address] September 22, 2024 SINAI LOCKWOOD [address] [place] [address] : 1995 To Whom It May Concern, Please excuse above patient from work. Date of Illness: From: 09/22/2024 To: 10/02/2024 May Return to Work On: 10/02/2024 Restrictions: none Comments: none Sincerely, Bebeto Carty NP [facility] Ambulatory Visit Summaryon 0 09-18-2024 Ambulatory Visit Summary Ambulatory Visit Summary SINAI LOCKWOOD :1995 Visit Date:09/18/2024 Ambulatory Visit Instructions Your Diagnosis Urinary retention Interstitial cystitis Gross hematuria OAB (overactive bladder) Incomplete bladder emptying Pelvic floor dysfunction Myofascial muscle pain Your Care Team Attending Physician - Pao Macedo MD Primary Care Physician - IVET LAWLER This Is Your Medications List mirabegron (Myrbetriq 50 mg oral tablet, extended release) Contact prescribing physician if questions or concerns Non-Formulary Medication acetaminophen-hydrocodo ne ([place] 325 mg-5 mg oral tablet) amitriptyline (amitriptyline 25 mg Tab) metronidazole [Image Removed: STOP]Stop taking these medications tolterodine (tolterodine 2 mg Cap-ER) Procedures Performed Cystoscopy (09/05/2024), Cystoscopy (12/02/2021), Cystourethroscopy with dilation of urethral stricture (07/24/2020), Cystoscopy (2019), History of tonsillectomy, Hysterectomy, Laparoscope, Laser uterosacral nerve ablation, AUDI - Laser uterosacral nerve ablation. Discharge Vitals Height 154 cm Height 61 in Weight 56 kg Weight 123.459 lb BMI 23.61 What to do next Scheduled Follow-Up Appointments Wednesday. 2024 3:00 PM EDT With: Pao Macedo MD Where: [facility] [address], [address] [place] [address]- You Need to Schedule the Following Appointments Follow Up with Remington CURTIS, Pao Lemus, ALFONSO, URO When: Where: Medications What How Much When Instructions Unchanged mirabegron (Myrbetriq 50 mg oral tablet, extended release) 1 Tablets By Mouth Every day Unchanged acetaminophen-hydrocodo ne ([place] 325 mg-5 mg oral tablet) 1 Tablets By Mouth Every 6 hours as needed for for pain severe pain Contact prescribing physician if questions or concerns Unchanged amitriptyline (amitriptyline 25 mg Tab) 1 Tablets By Mouth Every day Contact prescribing physician if questions or concerns Unchanged metronidazole 500 Milligram By Mouth Every 12 hours Contact prescribing physician if questions or concerns Unchanged Non-Formulary Medication See instructions Contact prescribing physician if questions or concerns What How Much When Comments Stop Taking tolterodine (tolterodine 2 mg Cap-ER) 1 Capsules By Mouth Every day Allergies Latex (Hives) penicillin (Hives) Problems Ongoing - Any problem that you are currently receiving treatment for. Adverse reaction to COVID-19 vaccine Arm skin lesion, right Asymptomatic microscopic hematuria BMI 22.0-22.9, adult BMI 23.0-23.9, adult BV (bacterial vaginosis) Endometriosis Gross hematuria Incomplete bladder emptying Interstitial cystitis Musculoskeletal disorder involving upper trapezius muscle Myofascial muscle pain Non-smoker Non-tobacco user Nonsmoker OAB (overactive bladder) Pelvic floor dysfunction Rectal bleeding Sinusitis Smoker Urinary retention Vaginal yeast infection Vomiting Historical - Any problem that you are no longer receiving treatment for. Endometriosis Interstitial cystitis Seizure Urinary retention Patient Survey You may receive a survey via text or e-mail asking about your office visit. Please share your experience with us by completing your survey. We appreciate your feedback and thank you for choosing us for your care. Education Materials Acute Urinary Retention, Female Acute urinary retention is when a person cannot pee (urinate) at all, or can only pee a little. This can come on all of a sudden. If it is not treated, it can lead to kidney problems or other serious problems. What are the causes? A problem with the tube that drains the bladder (urethra). ??? Problems with the nerves in the bladder. ??? The organs in the area between your hip bones (pelvis) slipping out of place (prolapse). ??? Tumors. ??? The of a baby through the vagina. ??? An infection. ??? Having trouble pooping (constipation). ??? Certain medicines. What increases the risk? Women over age 50 are more at risk. Other conditions also can increase risk. These include: ??? Diseases, such as multiple sclerosis. ??? Injury to the spinal cord. ??? Diabetes. ??? A condition that affects the way the brain works, such as dementia. ??? Holding back urine due to trauma or because you do not want to use the bathroom. ??? History of not being able to pee or peeing too little. ??? Having had surgery in the area between your hip bones. What are the signs or symptoms? Trouble peeing. ??? Pain in the lower belly. How is this treated? Treatment for this condition may include: ??? Medicines. ??? Placing a thin, germ-free tube (catheter) into the bladder to drain pee out of the body. ??? Therapy to treat mental health conditions. ??? Treatment for cond (more content not included)... Normal [facility] ED Note-Physicianon 09-19-19 ED Note-Physician ED Note-Physician Basic Information Time Seen: Carlos Quinn PA-C. 09/17/2024 16:56 Chief Complaint Pt was here Wednesday and given urinary catheter for urinary retention. Pt. states today noticed decreased output. attempted irrigation at home without success. Pt states feels distended and having bladder pain. History of Present Illness Patient is a 29-year-old female with PMH of interstitial cystitis and overactive bladder presents today for evaluation of her lower abdominal pain and distention. Patient was seen here in the ED on Wednesday and had a Ortiz catheter placed at that time for distended bladder. She states that she had a surgery with Dr. Macedo urologist where she had some medication injected into her bladder for interstitial cystitis. Patient states that for about 24 hours after the Ortiz catheter was placed that she felt much better but now this morning she started to have increasing distention and pain again. Her attempted to irrigated without relief. She denies any fevers, bodies, chills. She does occasionally get nausea but no vomiting. She denies dysuria and states that it just hurts in her bladder area. Review of Systems No other aggravating or relieving factors no other associated symptoms no other prior treatments or complaints. Family: Reviewed and noncontributory Social: lives at home Review of systems negative unless otherwise specified in the HPI. Physical Exam Vitals & Measurements T: 36.7 ???C(Oral) HR: 84(Monitored) RR: 16 BP: 117/81 SpO2: 97% HT: 154 cm WT: 56.5 kg BMI: 23.82 General: The patient appears well and in no apparent distress. Patient is resting comfortably on cart. Skin: Warm, dry, no pallor noted. Head: Normocephalic, atraumatic Neck: No JVD Eye: PERRLA, EOMI ENT: Moist mucus membranes Cardiovascular: Regular rate and rhythm. Normal peripheral perfusion Respiratory: CTA bilaterally. No respiratory distress no accessory muscle use no obvious audible wheezing Chest Wall: no deformity Musculoskeletal: normal ROM, no deformity, no swelling GI: Soft. No rebound or rigidity. No guarding. Lower abdominal distention with mild to moderate tenderness to palpation diffusely. Neurological: A&O moves all extremities equal strength and symmetry Psychiatric: Cooperative and appropriate Medical Decision Making Patient is a 29-year-old female with PMH of interstitial cystitis and overactive bladder presents today for evaluation of her lower abdominal pain and distention. Just had surgery with Dr. Macedo urologist where she had medication injected to into her bladder for her interstitial cystitis. Was seen here in the ED with complete workup on Wednesday where and she had a Ortiz placed. Labs and CT were unremarkable although the initially Ortiz catheter was placed into the vaginal canal and not into the bladder. She started to have increasing pain and distention in the lower abdomen again today. On exam the patient is afebrile nontoxic-appearing. She does have lower abdominal distention with mild to moderate tenderness to palpation diffusely. Remaining abdomen is soft and nontender with no evidence of guarding. Bladder scan showed 12 cc. Mcrmq-[id number] ultrasound performed by Dr. Rivera demonstrates inability to identify bladder. I called and spoke with Dr. Macedo who recommended irrigating the Ortiz out and starting her on Myrbetriq and she will see her in the next couple of days in the office. We are able to successfully irrigate the Ortiz out with nursing and the patient states that she is feeling much better. She has continued flow. Patient will be started on Myrbetriq. Unfortunately we do not have that here in our pharmacy so the patient will have to wait till tomorrow morning in order to get the medication therefore she was provided with a to go pack of Percocet to get her through the night. Patient be discharged home with close follow-up with urology. Return to ED precautions were reviewed with the patient at length. Assessment/Plan Bladder spasms (N32.89: Other specified disorders of bladder) Ortiz catheter problem (T83.9XXA: Unspecified complication of genitourinary prosthetic device, implant and graft, initial encounter) Urinary retention (R33.9: Retention of urine, unspecified) Orders: acetaminophen-oxycodone , 1 EA, Tab, Oral, Once, Stop date 09/17/24 18:36:00 EDT, STAT, Start date 09/17/24 18:36:00 EDT mirabegron, 50 mg = 1 tab(s), Oral, Daily, # 30 tab(s), Refills(s) 0, Pharmacy: [id number], 154, cm, 09/17/24 16:55:00 EDT, Height/Length Dosing, 56.5, kg, 09/17/24 16:55:00 EDT, Weight Dosing Medications Administered Given TO GO acetaminophen-oxycodone 325 mg - 5 mg, 1 EA, Oral Disposition Plan Patient Discharge Condition Stable, improved Discharge Disposition Home Discharge Prescription List Prescriptions Myrbetriq 50 mg oral tablet, extended release, 50 mg= 1 tab(s), Oral, Daily Follow-up With When Contact Information Pao Macedo In 3 days 09/20/2024 (more content not included)... Normal [facility] Comment on above: Result Comment: Elec tronically Signed By: Carlos Quinn PA-C\.br\Date and Time Signed: 09/17/24 20:27 EDT\.br\Electronically Co-Signed By: Fausto Rivera DO\.br\Date and Time Co-Signed: 09/18/24 23:38 EDT Provider Letteron 09-18-2024 Provider Letter Provider Letter September 18, 2024 SINAI LOCKWOOD [address] [place] [address] [place] [address] : 1995 To Whom It May Concern, Please excuse [facility] from work 09/18/24 through 09/24/24 for medical reasons. May Return to Work On: 09/25/24 Restrictions: None Sincerely, [facility] Dr Pao Macedo MD [phone] Normal [facility] Urology Office/Clinic Noteon 09-18-2024 Urology Office/Clinic Note Urology Office/Clinic Note Chief Complaint follow up HPI Staff 29 year old female here for follow up to [facility] [place] ER 09/15/24 due to urinary retention and bladder pain cath placed with 500ml drainage patient was then seen again in the er on 09/17 due to decreased urinary output /distention with no success at irrigating at home. PVR showed 12cc. Patient is S/P Cystoscopy, hydrodistention, instillation of bladder cocktail for interstitial cystitis 09/05/24 patient states that since cath was placed she has been in severe pain. States that cath is leaking around the tube and states that she has to push in order for a lot of urine to come out. States she started having intermittent blood today. History of Present Illness Tests reviewed: reviewed UA, external CT, ER records, labs I have reviewed the previous health record information and history for this patient from Dr. Macedo and external providers I have reviewed and verified the staff HPI to be accurate for this encounter. There have been no associated fever, chills, flank pain, or blood in the urine. Physical Exam Vitals & Measurements HT: 61 in HT: 154 cm WT: 56 kg WT: 123.459 lb BMI: 23.61 General Appearance: alert , no acute distress, well nourished, well developed female. Catheter to gravity with CYU, scant debris within tubing. White vaginal discharge consistent with yeast infection Assessment/Plan 29 yo female with IC presents for f/up to recent UR episode. Pt accompanied by today. 1. Urinary retention (R33.9: Retention of urine, unspecified) Pt presented to [facility] ER 09/15/24 due to UR and lower abdominal discomfort. CT AP w con 09/15/24 - negative for filling defects, masses, hydro, stones. 16Fr ortiz placed with 500 mL initial output. Pt presented to [facility] ER 09/17/24 due to lower abdominal pain and distention. Decreased urine output. Ortiz irrigated in the ER and pt subsequently started on Myrbetriq 50mg ER qd. Pt states she just started med. Pt called our office earlier this morning stating she has an off shoot (pt states she was told this in the ER) in her urethra. The only way she can get urine to drain with the catheter is to push really hard which is very painful. Explained to pt that she is experiencing bladder spasms. Increased sensitivity given IC. Denies constipation. Abdomen is distended upon on exam today. Retention 10 days post cysto likely due to fluid overload and inability to relax to void. Discussed having Ortiz removed in office today and for pt to learn CIC if she feels comfortable. Taught CIC in office today, did well. All questions and concerns addressed. Pt agrees with plan. TOV performed in office. -Timed voids, void every 3 hours, relax during urination -Begin CIC q4hrs, increase frequency of CIC if volumes are >500 mL Follow up in 1 mos w/ PVR or sooner if needed. 2. Yeast infection of the vagina (B37.31: Acute candidiasis of vulva and vagina) On exam, pt symptomatic. Wishes to be treated. Will send fluconazole PO once. Risks/benefits discussed Ordered: fluconazole, 150 mg = 1 tab(s), Oral, Once, # 1 tab(s), Refills(s) 0, Pharmacy: [facility], 154, cm, 09/18/24 14:12:00 EDT, Height/Length Dosing, 56, kg, 09/18/24 14:12:00 EDT, Weight Dosing 3. Interstitial cystitis (N30.10: Interstitial cystitis (chronic) without hematuria) Diagnosed with IC in July 2020 by outside urologist s/p hydrodistention with cocktail of heparin, DMSO, and Kenalog, dilation of mid urethral stricture with relief for 6 months. Her bladder capacity was 300cc at that time. S/p Robotic hysterectomy for endometriosis 05/2022 along with hydrodistention of saline. Operative note had endometriosis within her peritoneal cavity as well, bladder was negative. S/p Cysto/hydrodistension 12/02/21, capacity improved to 600mL. Sxs improved 30-40%. No hunner lesions. Severe pain initially post op Hx of having improvement with Gabapentin (made her loopy) and Amitriptyline. KUB 08/14/22 - neg. Renal US 08/17/22 - neg. IC flare up at that time, was experiencing severe abdominal pain and nausea. Urine culture at that time was neg. CT AP w con 09/25/23 [facility] - neg for stones or hydro. Prior BBSQ 16 (ICIQ 8) She was doing really well with behavioral modifications, exercises and stress mgmt. Started new job and now having IC flares. Flare in April with gross hematuria and abdominal pain/pressure. Reports overall she has had 3 flare ups this past year that last anywhere from 2-4 days. Seen at urgent care 06/27/24 due to vaginal itching and burning. Neg UCx 06/29/24. Recently started on Amitriptyline 25mg qd. Using Valium 10mg/Baclofen 5 mg suppository. S/p cysto, hydrodistention, instillation of bladder cocktail (DMSO, heparin, kenalog, lidocaine) for IC 09/05/24 - neg for b.t. With a pressure of 60 cm H2O, the bladder was filled until visible capacity at near 300 cc. This was held for 1 minute. The bladder was drained and the mucosa evaluated confirming no Hu (more content not included)... Normal [facility] Comment on above: Result Comment: Elec tronically Signed By: Remington CURTIS, Pao Lemus\.br\Date and Time Signed: 09/18/24 15:19 EDT ED Clinical Summaryon 2024 ED Clinical Summary ED Clinical Summary [place] [address] ED Clinical Summary Person Information Name: SINAI LOCKWOOD Melany/[facility] Age: 29 Years : 1995 Sex: Female Language: Panamanian PCP: IVET LAWLER Marital Status: Visit Id: Visit Reason: Alteration in patterns of urinary elimination; Urinary retention; Catheter check; NOT EMPTYING URINE - DR RODRIGUEZ CALLED AHEAD Speciality: Acuity: 3 Enc Type: Emergency Med Service: Emergency Arrival: 09/17/2024 16:45:54 Discharge: 09/17/2024 18:48:30 LOS: 000 02:03 Checkin: 09/17/2024 16:45:54 Checkout: 09/17/2024 18:48:30 Dispo Type: Home (Routine DC) EVENTS: Event Name Event Status Request Date/Time Start Date/Time Complete Date/Time Arrive Complete 09/17/2024 16:45:54 09/17/2024 16:45:54 09/17/2024 16:45:54 Document Home Meds Request 09/17/2024 16:45:54 Triage Complete 09/17/2024 16:45:54 09/17/2024 16:55:24 09/17/2024 16:55:24 Bed Assign Complete 09/17/2024 16:55:53 09/17/2024 16:55:53 09/17/2024 16:55:53 Dr Exam Complete 09/17/2024 16:55:53 09/17/2024 16:56:23 09/17/2024 16:56:23 RN Exam Complete 09/17/2024 16:55:53 09/17/2024 17:10:58 09/17/2024 17:10:58 Registration Complete 09/17/2024 16:56:23 09/17/2024 18:16:13 09/17/2024 18:16:13 Pending Labs Cancel 09/17/2024 16:58:31 09/17/2024 18:24:45 Dr Exam Complete 09/17/2024 17:08:02 09/17/2024 17:08:02 09/17/2024 17:08:02 Pending Labs Cancel 09/17/2024 18:01:52 09/17/2024 18:24:45 Lab Cancel 09/17/2024 18:01:52 09/17/2024 18:24:45 Urine Collect Cancel 09/17/2024 18:01:52 09/17/2024 18:24:45 Reg Complete Request 09/17/2024 18:16:13 Reg Bed Request Complete 09/17/2024 18:16:13 09/17/2024 18:16:13 09/17/2024 18:16:13 Meds Admin Complete 09/17/2024 18:37:07 09/17/2024 18:45:06 Discharge Complete 09/17/2024 18:39:01 09/17/2024 18:48:36 09/17/2024 18:48:36 Transfer Complete 09/17/2024 18:48:36 09/17/2024 18:48:36 09/17/2024 18:48:36 ADDRESS: [address] [facility] [id number] PHYS DOC NOTES: MEDICAL INFORMATION: Prescriptions Given: New Medications [facility], [address] [place], [place] [id number], [phone] mirabegron (Myrbetriq 50 mg oral tablet, extended release) 1 Tablets By Mouth every day. Refills: 0. Medications to Continue with No Changes Other Medications acetaminophen-hydrocodo ne ([place] 325 mg-5 mg oral tablet) 1 Tablets By Mouth every 6 hours as needed for pain. severe pain. Refills: 0. amitriptyline (amitriptyline 25 mg Tab) 1 Tablets By Mouth every day. Refills: 3. metronidazole 500 Milligram By Mouth every 12 hours. Non-Formulary Medication tolterodine (tolterodine 2 mg Cap-ER) 1 Capsules By Mouth every day. Refills: 3. PATIENT EDUCATION INFORMATION: Instructions: Ortiz Catheter Care, Female-[facility] (Custom); Acute Urinary Retention, Female; Interstitial Cystitis Follow up: With: Address: When: Pao Macedo In 3 days 09/20/2024 With: Address: When: BEBETO CARTY In 3 days DIAGNOSIS: Bladder spasms; Ortiz catheter problem; Urinary retention Normal [facility] ED Note-Nursingon 09-17-2024 ED Note-Nursing ED Note-Nursing pt's bladder was irrigated with normal saline. no resistance when irrigating. urine was clear yellow, ortiz draining on it's own. urine in ortiz bag. before and after irrigation. pt tolerated procedure well. Normal [facility] ED Patient Summaryon 025 ED Patient Summary ED Patient Summary [address] [address] Patient Discharge Instructions Person Information Name: SINAI LOCKWOOD Age: 29 Years Arrival Date: 09/17/2024 16:45:54 Discharge Diagnosis: Bladder spasms; Ortiz catheter problem; Urinary retention Primary Care Physician: IVET LAWLER Provider Information Primary Provider: Fausto Rviera DO Advanced Meter Supervisor:Carlos Quinn PA-C The exam and treatment you received in the Emergency Department were for an urgent problem and are not intended as complete care. It is important that you follow up with a doctor, nurse practitioner, or physician???s retail event and sales assistant for ongoing care. If your symptoms become worse or you do not improve as expected and you are unable to reach your usual health care provider, you should return to the Emergency Department. We are available 24 hours a day. SINAI LOCKWOOD has been given the following list of patient education materials, prescriptions and follow-up instructions: Follow-up Instructions: With: Address: When: Pao Macedo In 3 days 09/20/2024 With: Address: When: BEBETO CARTY In 3 days In the event that this physician does not participate in your insurance network, please consult with your insurance company to find a nearby participating provider. Patient Education Materials: Ortiz Catheter Care, Female-[facility] (Custom); Acute Urinary Retention, Female; Interstitial Cystitis A MESSAGE TO ALL PATIENTS REGARDING OPIOIDS PRESCRIPTION OPIOIDS: WHAT YOU NEED TO KNOW Prescription opioids can be used to help relieve uuhhocxv-mn-wvcdhc pain and are often prescribed following a surgery or injury, or for certain health conditions. These medications can be an important part of the treatment but also come with serious risks. It is important to work with your healthcare provider to make sure you are getting the safest, most effective care. WHAT ARE THE RISKS AND SIDE EFFECTS OF OPIOID USE? Prescription opioids carry serious risks of addiction and overdose, especially with prolonged use. An opioid overdose, often marked by slowed breathing, can cause sudden . The use of prescription opioids can have a number of side effects as well, even when taken as directed: ??? Tolerance???meaning you might need to take more of the medication for the same pain relief ??? Physical dependence???meaning you have symptoms of withdrawal when a medication is stopped ??? Increased sensitivity to pain ??? Constipation ??? Nausea, vomiting, and dry mouth ??? Sleepiness and dizziness ??? Confusion ??? Depression ??? Low levels of testosterone that can result in lower sex drive, energy, and strength ??? Itching and sweating RISKS ARE GREATER WITH: ??? History of drug misuse, substance use disorder, or overdose ??? Mental health conditions (such as depression or anxiety) ??? Sleep apnea ??? Older age (65 years and older) ??? Avoid alcohol while taking prescription opioids. Also, unless specifically advised by your health care provider, medications to avoid include: ??? Benzodiazepines (such as Xanax or Valium) ??? Muscle relaxants (such as Soma or Flexeril) ??? Hypnotics (such as Ambien or Lunesta) ??? Other prescription opioids KNOW YOUR OPTIONS Talk to your health care provider about ways to manage your pain that don???t involve prescription opioids. Some of these options may actually work better and have fewer risks and side effects. Options may include: ??? Pain relievers such as acetaminophen, ibuprofen, and naproxen ??? Some medication that are also used for depression or seizures ??? Physical therapy and exercise ??? Cognitive behavioral therapy, a psychological, goal-directed approach, in which patients learn how to modify physical, behavioral, and emotional triggers of pain and stress. IF YOU ARE PRESCRIBED OPIOIDS FOR PAIN: ??? Never take opioids in greater amounts or more often than prescribed. ??? Follow up with your primary health care provider. o Work together to create a plan on how to manage your pain. o Talk about ways to help manage your pain that don???t involve prescription opioids. o Talk about any and all concerns and side effects. ??? Help prevent misuse and abuse o Never sell or share prescription opioids. o Never use another person???s prescription opioids. ??? Store prescription opioids in a secure place and out of reach of others (this may include visitors, children, friends, and family). ??? Safely dispose of unused prescription opioids: Find your community drug take-back program or your pharmacy mail-back program, or flush them down the toilet, following guidance from the Food and Drug Administration (www.fda.gov/Drugs/Reso urcesForYou). ??? Visit www.cdc.gov/drugoverdos e to learn about the risks of opioids abuse and o (more content not included)... Normal [facility] CT Abdomen/Pelvis w/ Contras ton 09-16-2024 CT Abdomen/Pelvis w/ Contrast Exam Date/Time: 09/15/2024 23:16 EDT Reason for Exam: ABDOMINAL PAIN, ACUTE, NONLOCALIZED;Other (please specify) Report IMPRESSION: CATHETER COILED WITHIN CERVICAL CANAL. CORRELATE CLINICALLY. HYSTERECTOMY. HISTORY: ABDOMINAL PAIN, ACUTE, NONLOCALIZED. URINARY RETENTION. URINARY BLADDER PAIN. SURGERY URINARY BLADDER 3 DAYS AGO. TECHNICAL FACTORS: CT imaging of the abdomen and pelvis were obtained and formatted as 5 mm contiguous axial images from the domes of the diaphragm to the symphysis pubis. Sagittal and coronal reconstructions were also obtained. Comparison: CT abdomen pelvis, 09/25/2023. Findings: Lung bases: Cardiac size normal. No pericardial effusion. No coronary artery calcification. Lung bases clear. Liver: Normal in size, shape, and attenuation. Bile Ducts: Normal in caliber. Gallbladder: No stones or wall thickening. Pancreas: Normal without masses, cysts, ductal dilatation or calcification. Spleen: Normal in size without masses or calcifications. No splenules. Kidneys: Normal in size and enhancement. No hydronephrosis, masses, or stones. Adrenals: Normal. Small bowel: Normal in caliber. Appendix: Not visualized. Colon: Normal in caliber. Peritoneum: No ascites, free air, or fluid collections. Vessels: Aorta normal in course and caliber. Portal vein, splenic vein, superior mesenteric vein are patent. Report Lymph nodes: Retroperitoneal: No enlarged retroperitoneal lymph nodes. Mesenteric: No enlarged mesenteric lymph nodes. Pelvic: No enlarged pelvic lymph nodes. Ureters: Normal in course and caliber. No calcifications. Bladder: No wall thickening. Reproductive organs: Uterus surgically absent. Catheter coiled within cervical canal. Abdominal Wall: 4 mm fat-containing periumbilical anterior abdominal wall defect. No diastasis of rectus musculature. No edema or masses. Bones: No bone lesions. No degenerative changes. No post operative changes. All CT scans at this facility use dose modulation, iterative reconstruction, and/or weight based dosing when appropriate to reduce radiation dose to as low as reasonably achievable. Technical Comments: GFR (mL/min/1/73m2) age Contrast: Isovue 300 Contrast amount in ml's: 100.00 Ordering Provider: Jung Sandoval FINAL REPORT Dictated: 09/16/2024 9:57 am SignShar lozano MD Signed (Electronic Signature): 09/16/2024 9:57 am Signed by: Shar Miller MD Transcribed by: BHAVYA Technologist: HAIR Daugherty [facility] ED Clinical Summaryon 2024 ED Clinical Summary ED Clinical Summary [place] [id number] ED Clinical Summary Person Information Name: SINAI LOCKWOOD [place] Age: 29 Years : 1995 Sex: Female Language: Panamanian PCP: IVET LAWLER Marital Status: Visit Id: Visit Reason: Post surgical problem; Medical problem - minor; Urinary retention; BLADDER SURGERY, PAIN Speciality: Acuity: 3 Enc Type: Emergency Med Service: Emergency Arrival: 09/15/2024 21:33:34 Discharge: 09/16/2024 02:24:32 LOS: 000 04:51 Checkin: 09/15/2024 21:33:34 Checkout: 09/16/2024 02:24:32 Dispo Type: Home (Routine DC) EVENTS: Event Name Event Status Request Date/Time Start Date/Time Complete Date/Time Arrive Complete 09/15/2024 21:33:34 09/15/2024 21:33:34 09/15/2024 21:33:34 Document Home Meds Request 09/15/2024 21:33:34 Triage Complete 09/15/2024 21:33:34 09/15/2024 21:39:55 09/15/2024 21:39:55 Bed Assign Complete 09/15/2024 21:40:02 09/15/2024 21:40:02 09/15/2024 21:40:02 Dr Exam Complete 09/15/2024 21:40:02 09/15/2024 21:43:39 09/15/2024 21:43:39 RN Exam Complete 09/15/2024 21:40:02 09/15/2024 22:21:49 09/15/2024 22:21:49 Registration Complete 09/15/2024 21:42:16 09/15/2024 21:42:16 09/15/2024 21:42:16 Reg Complete Request 09/15/2024 21:42:16 Reg Bed Request Complete 09/15/2024 21:42:16 09/15/2024 21:42:16 09/15/2024 21:42:16 Registration Request 09/15/2024 21:43:39 Patient Care Complete 09/15/2024 22:04:30 09/15/2024 22:13:29 Patient Care Request 09/15/2024 22:31:19 CT Complete 09/15/2024 22:31:20 09/15/2024 22:57:06 09/15/2024 23:16:48 Pending Labs Complete 09/15/2024 22:31:20 09/16/2024 01:35:22 Lab Complete 09/15/2024 22:31:20 09/16/2024 01:35:22 Patient Care Complete 09/15/2024 22:31:20 09/16/2024 01:28:50 Urine Collect Complete 09/15/2024 22:31:20 09/16/2024 01:35:22 Pending Labs Cancel 09/15/2024 22:31:20 09/16/2024 01:30:57 Pending Labs Complete 09/15/2024 22:58:44 09/15/2024 22:58:44 09/15/2024 23:21:27 Lab Complete 09/15/2024 22:58:44 09/15/2024 22:58:44 09/15/2024 23:21:27 Meds Admin Complete 09/15/2024 23:01:38 09/15/2024 23:46:11 Discharge Complete 09/16/2024 01:49:25 09/16/2024 02:24:41 09/16/2024 02:24:41 Transfer Complete 09/16/2024 02:24:41 09/16/2024 02:24:41 09/16/2024 02:24:41 ADDRESS: [place] [facility] [phone] PHYS DOC NOTES: MEDICAL INFORMATION: Prescriptions Given: Medications to Continue with No Changes Other Medications acetaminophen-hydrocodo ne ([place] 325 mg-5 mg oral tablet) 1 Tablets By Mouth every 6 hours as needed for pain. severe pain. Refills: 0. metronidazole 500 Milligram By Mouth every 12 hours. Non-Formulary Medication PATIENT EDUCATION INFORMATION: Instructions: Acute Urinary Retention, Female Follow up: With: Address: When: Pao Macedo [address] [employer] [address] [place] [phone] Business (1) In 3 days 09/19/2024 With: Address: When: BEBETO CARTY In 3 days DIAGNOSIS: Acute urinary retention Normal [facility] ED Note-Physicianon 09-17-19 ED Note-Physician ED Note-Physician Basic Information Time Seen: Jung Sandoval DO 09/15/2024 21:43 Chief Complaint pt arrives for urinary rentention and bladder pain. pt states that she had bladder surgery last wednesday. History of Present Illness HPI: Patient is a 29-year-old female who presents to the ED for urinary retention and lower abdominal discomfort. Patient states that she has a history of bladder issues for which she sees outpatient urology. Last Wednesday she had a cystoscopy with bladder inflation as well as medicine instillation. She states that since then she has had pain in the area and difficulty urinating. She states that today she has been unable to urinate since approximately 1300 and at the time only passed a few small drops. She has been drinking lots of fluids throughout the day and feels like her abdomen is becoming distended. She has some nausea associated with the discomfort but denies vomiting. She denies any change of bowel movements. ROS: Pertinent review of systems conducted and is negative except as noted above. Physical exam: General: nontoxic appearing and in no distress HEENT: Mucous membranes moist Neuro: awake and alert Neck: supple, trachea midline Card: Heart regular rate and rhythm no murmur Resp: Lungs clear to auscultation no wheeze or rhonchi Abd: Soft , moderate suprapubic distention and suprapubic tenderness as well as right CVA tenderness. No rebound or guarding. Ext: No gross deformity or edema Physical Exam Vitals & Measurements T: 36.4 ???C(Oral) HR: 76(Peripheral) RR: 17 BP: 133/97 SpO2: 100% HT: 154 cm WT: 56.5 kg BMI: 23.82 Medical Decision Making MEDICAL DECISION MAKING Number and Complexity of Problems Differential Diagnosis: [] MDM Data External documents reviewed: N/A My EKG interpretation: Noted in chart if applicable My CT interpretation: N/A My X-ray interpretation: Noted in chart if applicable My Ultrasound interpretation: N/A Decision rules/scores evaluated: N/A Discussed with: N/A Treatment and Disposition ED Course: Patient is uncomfortable but nontoxic. She has suprapubic tenderness and fullness as well as some mild right CVA tenderness. Will obtain a CT of the abdomen pelvis in addition to blood work and urinalysis. Nursing staff attempted to place a Ortiz catheter at bedside but had no urine output. Blood work is overall reassuring. CT of the abdomen pelvis showed previous hysterectomy. A lucent catheter extending into the cervical canal. No other acute findings noted. Nursing staff was able to reposition the Ortiz catheter and did have clear urine output. Urinalysis shows no signs of acute infection. Patient did have significant relief of her distention and pain. We discussed the plan of discharge with indwelling Ortiz catheter and she will follow-up on a close outpatient basis with her established urologist Dr. Macedo. Patient states understanding agreement with this plan was discharged in stable condition. Shared decision making: As above Code status: N/A Assessment/Plan Acute urinary retention (R33.8: Other retention of urine) Orders: morphine, 2 mg = 1 mL, Injection, IV Push, Once, Stop date 09/15/24 23:01:00 EDT, STAT, Start date 09/15/24 23:01:00 EDT, 09/15/24 23:01:00 EDT ondansetron, 4 mg = 2 mL, Injection, IV Push, Once, Stop date 09/15/24 23:01:00 EDT, STAT, Start date 09/15/24 23:01:00 EDT, 09/15/24 23:01:00 EDT Basic Metabolic Panel Bladder Scan CBC w/ Auto Diff CT Abdomen/Pelvis w/ Contrast eGFR Hepatic Function Panel Lipase Level Saline Lock Insert U Beta Hcg Qual UA with Cult Rflx Urinary Catheter Insertion Medications Administered Given morphine 2 mg/mL Inj, 2 mg, IV Push Zofran 4 mg/2 mL Injection, 4 mg, IV Push Disposition Plan Discharge Prescription List Prescriptions No active prescription medications Follow-up With When Contact Information Pao Macedo In 3 days 09/19/2024 EDT [address] [address]- [phone] Business (1) Additional Instructions: BEBETO CARTY In 3 days Additional Instructions: Patient Education Acute Urinary Retention, Female Problem List/Past Medical History Ongoing Adverse reaction to COVID-19 vaccine Arm skin lesion, right Asymptomatic microscopic hematuria BMI 22.0-22.9, adult BMI 23.0-23.9, adult BV (bacterial vaginosis) Endometriosis Gross hematuria Incomplete bladder emptying Interstitial cystitis Musculoskeletal disorder involving upper trapezius muscle Myofascial muscle pain Non-smoker Non-tobacco user Nonsmoker OAB (overactive bladder) Pelvic floor dysfunction Rectal bleeding Sinusitis Vaginal yeast infection Vomiting Historical Endometriosis Seizure Procedure/Surgical History Cystoscopy (09/05/2024), Cystoscopy (12/02/2021), Cystourethroscopy with dilation of urethral stricture (07/24/2020), Cystoscopy (2019), History of tonsillectomy, Hysterectomy, Laparoscope, Laser utero (more content not included)... Normal [facility] Comment on above: Result Comment: Elec tronically Signed By: Jung Sandoval DO\.br\Date and Time Signed: 09/16/24 01:51 EDT ED Patient Summaryon 025 ED Patient Summary ED Patient Summary [address] [address] Patient Discharge Instructions Person Information Name: SINAI LOCKWOOD Age: 29 Years Arrival Date: 09/15/2024 21:33:34 Discharge Diagnosis: Acute urinary retention Primary Care Physician: IVET LAWLER Provider Information Primary Provider: Jung Sandoval DO Advanced Meter Supervisor:None The exam and treatment you received in the Emergency Department were for an urgent problem and are not intended as complete care. It is important that you follow up with a doctor, nurse practitioner, or physician???s retail event and sales assistant for ongoing care. If your symptoms become worse or you do not improve as expected and you are unable to reach your usual health care provider, you should return to the Emergency Department. We are available 24 hours a day. SINAI LOCKWOOD has been given the following list of patient education materials, prescriptions and follow-up instructions: Follow-up Instructions: With: Address: When: Pao Macedo [address], [place] [address], Next Caller [address] [phone] Business (1) In 3 days 09/19/2024 With: Address: When: BEBETO CARTY In 3 days In the event that this physician does not participate in your insurance network, please consult with your insurance company to find a nearby participating provider. Patient Education Materials: Acute Urinary Retention, Female A MESSAGE TO ALL PATIENTS REGARDING OPIOIDS PRESCRIPTION OPIOIDS: WHAT YOU NEED TO KNOW Prescription opioids can be used to help relieve ufiftvew-dn-opvzff pain and are often prescribed following a surgery or injury, or for certain health conditions. These medications can be an important part of the treatment but also come with serious risks. It is important to work with your healthcare provider to make sure you are getting the safest, most effective care. WHAT ARE THE RISKS AND SIDE EFFECTS OF OPIOID USE? Prescription opioids carry serious risks of addiction and overdose, especially with prolonged use. An opioid overdose, often marked by slowed breathing, can cause sudden . The use of prescription opioids can have a number of side effects as well, even when taken as directed: ??? Tolerance???meaning you might need to take more of the medication for the same pain relief ??? Physical dependence???meaning you have symptoms of withdrawal when a medication is stopped ??? Increased sensitivity to pain ??? Constipation ??? Nausea, vomiting, and dry mouth ??? Sleepiness and dizziness ??? Confusion ??? Depression ??? Low levels of testosterone that can result in lower sex drive, energy, and strength ??? Itching and sweating RISKS ARE GREATER WITH: ??? History of drug misuse, substance use disorder, or overdose ??? Mental health conditions (such as depression or anxiety) ??? Sleep apnea ??? Older age (65 years and older) ??? Avoid alcohol while taking prescription opioids. Also, unless specifically advised by your health care provider, medications to avoid include: ??? Benzodiazepines (such as Xanax or Valium) ??? Muscle relaxants (such as Soma or Flexeril) ??? Hypnotics (such as Ambien or Lunesta) ??? Other prescription opioids KNOW YOUR OPTIONS Talk to your health care provider about ways to manage your pain that don???t involve prescription opioids. Some of these options may actually work better and have fewer risks and side effects. Options may include: ??? Pain relievers such as acetaminophen, ibuprofen, and naproxen ??? Some medication that are also used for depression or seizures ??? Physical therapy and exercise ??? Cognitive behavioral therapy, a psychological, goal-directed approach, in which patients learn how to modify physical, behavioral, and emotional triggers of pain and stress. IF YOU ARE PRESCRIBED OPIOIDS FOR PAIN: ??? Never take opioids in greater amounts or more often than prescribed. ??? Follow up with your primary health care provider. o Work together to create a plan on how to manage your pain. o Talk about ways to help manage your pain that don???t involve prescription opioids. o Talk about any and all concerns and side effects. ??? Help prevent misuse and abuse o Never sell or share prescription opioids. o Never use another person???s prescription opioids. ??? Store prescription opioids in a secure place and out of reach of others (this may include visitors, children, friends, and family). ??? Safely dispose of unused prescription opioids: Find your community drug take-back program or your pharmacy mail-back program, or flush them down the toilet, following guidance from the Food and Drug Administration (www.fda.gov/Drugs/Reso urcesForYou). ??? Visit www.cdc.gov/drugoverdos e to learn about the risks of opioids abuse and overdose. ??? If you believe you may be (more content not included)... Normal [facility] SEROLOGYOrdered By: Keily Hutchinson on 09-16-2024 HCG.beta subunit (U) [Moles/Vol] Negative Normal [facility] Man Sero U BetaHcg Qualon 09-16-2024 HCG.beta subunit (U) [Moles/Vol] Negative Normal [facility] Comment on above: Performed By: #### 2 [id number] ####[facility] [address] [place] [address] UA with Cult Rflxon 09-17-19 25 Bilirubin Ql (U) Negative Normal Negative [facility] Comment on above: Performed By: #### 4 [id number] #### [facility] [address] [place] [address] Clarity (U) Clear Normal Clear [facility] Comment on above: Performed By: #### 4 [id number] #### [facility] [address] [place] [address] Color (U) Colorless Abnormal Yellow [facility] Comment on above: Result Comment: Micr oscopic readings are only performed on those samples that meet specific criteria set forth by [facility] Laboratory. Performed By: #### 4 [id number] #### [facility] [address] [place] [address] Glucose Ql (U) Negative Normal Negative [facility] Comment on above: Performed By: #### 4 [id number] #### [facility] [address] [place] [address] Hemoglobin Auto test strip (U) [Mass/Vol] Negative Normal Negative [facility] Comment on above: Performed By: #### 4 [id number] #### [facility] [address] [place] [address] Ketones Auto test strip Ql (U) Trace Abnormal Negative [facility] Comment on above: Performed By: #### 4 [id number] #### [facility] [address] [place] [address] Leukocyte esterase Auto test strip Ql (U) Negative Normal Negative [facility] Comment on above: Performed By: #### 4 [id number] #### [facility] [address] [place] [address] Nitrite Auto test strip Ql (U) Negative Normal Negative [facility] Comment on above: Performed By: #### 4 [id number] #### [facility] [address] [place] [address] pH (U) 6.5 [pH] Invalid Interpretation Code 5.0-9.0 [facility] Comment on above: Performed By: #### 4 [id number] #### [facility] [address] [place] [address] Protein Ql (U) Negative Normal Negative [facility] Comment on above: Performed By: #### 4 [id number] #### [facility] [address] [place] [address] Specific gravity (U) [Rel density] 1.041 Invalid Interpretation Code 1.005-1.030 [facility] Comment on above: Performed By: #### 4 [id number] #### [facility] [address] [place] [address] Urobilinogen (U) [Mass/Vol] Negative Normal Negative [facility] Comment on above: Performed By: #### 4 [id number] #### [facility] [address] [place] [address] URINALYSISOrdered By: SYSTEM SYSTEM on 09-16-2024 Bilirubin Ql (U) Negative Normal Negativemg/dL [facility] UA Auto SS Clarity (U) Clear (09/16/24 1:26 AM) Normal Clear [facility] UA Auto SS Color (U) Colorless 1 *ABN* (09/16/24 1:26 AM) Invalid Interpretation Code Yellow [facility] UA Auto SS Comment on above: Interpretive Data: M icroscopic readings are only performed on those samples that meet specific criteria set forth by [facility]. Glucose Ql (U) Negative Normal Negativemg/dL [facility] UA Auto SS Hemoglobin Auto test strip (U) [Mass/Vol] Negative Normal Negativemg/dL [facility] UA Aut o SS Ketones Auto test strip Ql (U) Trace mg/dL Invalid Interpretation Code Negativemg/dL [facility] UA Auto SS Leukocyte esterase Auto test strip Ql (U) Negative Normal NegativeLeu/u L [facility] UA Auto SS Nitrite Auto test strip Ql (U) Negative Normal Negativemg/dL [facility] UA Auto SS pH (U) 6.5 *NA* (09/16/24 1:26 AM) Invalid Interpretation Code 5.0 - 9.0 [facility] UA Auto SS Protein Ql (U) Negative Normal Negativemg/dL [facility] UA Auto SS Specific gravity (U) [Rel density] 1.041 *NA* (09/16/24 1:26 AM) Invalid Interpretation Code 1.005 - 1.030 [facility] UA Auto SS Urobilinogen (U) [Mass/Vol] Negative Normal Negativemg/dL [facility] UA Auto SS URINALYSISOrdered By: Jung leiva on 09-16-2024 UA Spec Desc Catheter (09/16/24 1:26 AM) Normal [facility] UA Auto SS [facility] Anion gap [Moles/Vol] 10 mmol/L Normal 6-16 [facility] Comment on above: Performed By: #### 2 [id number] #### [facility] [address] [place] [address] Calcium [Mass/Vol] 9.1 mg/dL Normal 8.9-11.1 [facility] Comment on above: Performed By: #### 2 [id number] #### [facility] [address] [place] [address] Chloride [Moles/Vol] 104 mmol/L Normal 101-111 [facility] Comment on above: Performed By: #### 2 [id number] #### [facility] [address] [place] [address] CO2 [Moles/Vol] 26 mmol/L Normal 21-31 [facility] Comment on above: Performed By: #### 2 [id number] #### [facility] [address] [place] [address] Creatinine [Mass/Vol] 0.9 mg/dL Normal 0.5-1.3 [facility] Comment on above: Performed By: #### 2 [id number] #### [facility] [address] [place] [address] Glucose [Mass/Vol] 83 mg/dL Normal 55-199 [facility] Comment on above: Performed By: #### 2 [id number] #### [facility] [address] [place] [address] Potassium [Moles/Vol] 3.4 mmol/L Low 3.5-5.3 [facility] Comment on above: Performed By: #### 2 [id number] #### [facility] [address] [place] [address] Sodium [Moles/Vol] 137 mmol/L Normal 135-145 [facility] Comment on above: Performed By: #### 2 [id number] #### [facility] [address] [place] [address] Urea nitrogen [Mass/Vol] 19 mg/dL Normal 5-21 [facility] Comment on above: Performed By: #### 2 [id number] #### [facility] [address] [place] [address] Urea nitrogen/Creatinine [Mass ratio] 21 No Units High 10-20 [facility] Comment on above: Performed By: #### 2 [id number] #### [facility] [address] [place] [address] CBC w/ Auto Diffon 5 Basophils/100 WBC (Bld) 0.3 % Normal 0.0-2.0 [facility] Comment on above: Performed By: #### 2 [id number] #### [facility] [address] [place] [address] Basophils/Leukocytes Auto (Bld) [Pure # fraction] 0.0 E9/L Normal 0.0-0.2 [facility] Comment on above: Performed By: #### 2 [id number] #### [facility] [address] [place] [address] Eosinophils (Bld) [#/Vol] 0.1 E9/L Normal 0.0-0.5 [facility] Comment on above: Performed By: #### 2 [id number] #### [facility] [address] [place] [address] Eosinophils/100 WBC (Bld) 0.9 % Normal 0.0-8.0 [facility] Comment on above: Performed By: #### 2 [id number] #### [facility] [address] [place] [address] Erythrocyte distribution width (RBC) [Ratio] 12.6 % Normal 10.9-14.2 [facility] Comment on above: Performed By: #### 2 [id number] #### [facility] [address] [place] [address] Hematocrit (Bld) [Volume fraction] 42.2 % Normal 34.0-46.0 [facility] Comment on above: Performed By: #### 2 [id number] #### [facility] [address] [place] [id number] Hemoglobin (Bld) [Mass/Vol] 15.1 g/dL Normal 12.0-16.0 [facility] Comment on above: Performed By: #### 2 [id number] #### [facility] [address] [place] [address] Lymphocytes (Bld) [#/Vol] 2.7 E9/L Normal 1.0-4.0 [facility] Comment on above: Performed By: #### 2 [id number] #### [facility] [address] [place] [address] Lymphocytes/100 WBC (Bld) 37.6 % Normal 14.0-50.0 [facility] Comment on above: Performed By: #### 2 [id number] #### [facility] [address] [place] [address] MCH (RBC) [Entitic mass] 31.3 pg Normal 27.0-34.0 [facility] Comment on above: Performed By: #### 2 [id number] #### [facility] [address] [place] [address] MCHC (RBC) [Mass/Vol] 35.7 g/dL Normal 31.4-36.0 [facility] Comment on above: Performed By: #### 2 [id number] #### [facility] [address] [place] [address] MCV (RBC) [Entitic vol] 87.8 fL Normal 80.0-100.0 [facility] Comment on above: Performed By: #### 2 [id number] #### [facility] [address] [place] [address] Monocytes (Bld) [#/Vol] 0.5 E9/L Normal 0.2-1.0 [facility] Comment on above: Performed By: #### 2 [id number] #### [facility] [address] [place] [address] Neutrophils (Bld) [#/Vol] 3.9 E9/L Normal 2.0-7.5 [facility] Comment on above: Performed By: #### 2 [id number] #### [facility] [address] [place] [address] Neutrophils/100 WBC (Bld) 54.0 % Normal 36.0-75.0 [facility] Comment on above: Performed By: #### 2 [id number] #### [facility] [address] [place] [address] Platelet 257.0 E9/L Normal 150.0-500.0 [facility] Comment on above: Performed By: #### 2 [id number] #### [facility] [address] [place] [address] Platelet mean volume (Bld) [Entitic vol] 8.3 fL Normal 6.4-10.8 [facility] Comment on above: Performed By: #### 2 [id number] #### [facility] [address] [place] [address] RBC (Bld) [#/Vol] 4.8 E12/L Normal 4.3-5.9 [facility] Comment on above: Performed By: #### 2 [id number] #### [facility] [address] [place] [address] WBC corrected for nucl RBC Auto (Bld) [#/Vol] 7.1 E9/L Normal 4.0-11.0 [facility] Comment on above: Performed By: #### 2 [id number] #### [facility] [address] [place] [address] CHEMISTRYOrdered By: SYSTEM SYSTEM on 09-15-2024 Albumin [Mass/Vol] 4.5 g/dL Normal 3.3 - 5.0 gm/dL Remisol Chem Albumin/Globulin [Mass ratio] 2.0 {ratio} Normal 1.1 - 2.2 Remisol Chem ALP [Catalytic activity/Vol] 41 [iU]/d Normal 21 - 98 Int._Unit/L Remisol Chem ALT No additional P-5'-P [Catalytic activity/Vol] 25 [iU]/d Normal 6 - 46 Int._Unit/L Remisol Chem Anion gap [Moles/Vol] 10 mmol/L Normal 6 - 16 mEq/L R emisol Chem AST [Catalytic activity/Vol] 19 [iU]/d Normal 5 - 43 Int._Unit/L Remisol Chem Bilirubin [Mass/Vol] 0.3 mg/dL Normal 0.0 - 1 .1 mg/dL Remisol Chem Bilirubin.direct [Mass/Vol] 0.1 mg/dL Normal 0.0 - 0.4 mg/dL Remisol Chem Bilirubin.indirect [Mass or moles/Vol] 0.2 mg/dL Normal 0.1 - 0.9 mg/dL Remisol Chem Calcium [Mass/Vol] 9.1 mg/dL Normal 8.9 - 11. 1 mg/dL Remisol Chem Chloride [Moles/Vol] 104 mmol/L Normal 101 - 1 11 mmol/L Remisol Chem CO2 [Moles/Vol] 26 mmol/L Normal 21 - 31 mmol/L Remisol Chem Creatinine [Mass/Vol] 0.9 mg/dL Normal 0.5 - 1.3 mg/dL Remisol Chem eGFR 89 mL/min/1.73 m2 Normal >=59mL/min /1. 73 m2 Remisol Chem Globulin (S) [Mass/Vol] 2.3 g/dL Normal 1.4 - 4.0 gm/dL Remisol Chem Glucose [Mass/Vol] 83 mg/dL Normal 55 - 199 mg/dL Remisol Chem Lipase [Catalytic activity/Vol] 31 U/L Normal 13 - 58 unit/L Remisol Chem Potassium [Moles/Vol] 3.4 mmol/L Low 3.5 - 5.3 mmol/L Remisol Chem Protein [Mass/Vol] 6.8 g/dL Normal 6.0 - 7.8 gm/dL Remisol Chem Sodium [Moles/Vol] 137 mmol/L Normal 135 - 145 mmol/L Remisol Chem Urea nitrogen [Mass/Vol] 19 mg/dL Normal 5 - 21 mg/dL Remisol Chem Urea nitrogen/Creatinine [Mass ratio] 21 mg/mg High 10 - 20 Remisol Chem HEMATOLOGYOrdered By: SYSTEM SYSTEM on 09-15-2024 Basophils/100 WBC (Bld) 0.3 % Normal 0.0 - 2.0 % Remisol Heme Basophils/Leukocytes Auto (Bld) [Pure # fraction] 0.0 E9/L Normal 0.0 - 0.2 E9/L Remisol Heme Eosinophils (Bld) [#/Vol] 0.1 E9/L Normal 0.0 - 0.5 E9/L Remisol Heme Eosinophils/100 WBC (Bld) 0.9 % Normal 0.0 - 8.0 % Remisol Heme Erythrocyte distribution width (RBC) [Ratio] 12.6 % Normal 10.9 - 14.2 % Remisol Heme Hematocrit (Bld) [Volume fraction] 42.2 % Normal 34.0 - 46.0 % Remisol Heme Hemoglobin (Bld) [Mass/Vol] 15.1 g/dL Normal 12.0 - 16.0 gm/dL Remisol Heme Lymphocytes (Bld) [#/Vol] 2.7 E9/L Normal 1.0 - 4.0 E9/L Remisol Heme Lymphocytes/100 WBC (Bld) 37.6 % Normal 14.0 - 50.0 % Remisol Heme MCH (RBC) [Entitic mass] 31.3 pg Normal 27.0 - 34.0 pg Remisol Heme MCHC (RBC) [Mass/Vol] 35.7 g/dL Normal 31.4 - 36.0 gm/dL Remisol Heme MCV (RBC) [Entitic vol] 87.8 fL Normal 80.0 - 100.0 fL Remisol Heme Monocytes (Bld) [#/Vol] 0.5 E9/L Normal 0.2 - 1.0 E9/L Remisol Heme Monocytes/100 WBC (Bld) 7.2 % Normal 4.0 - 14.0 % Remisol Heme Neutrophils (Bld) [#/Vol] 3.9 E9/L Normal 2.0 - 7.5 E9/L Remisol Heme Neutrophils/100 WBC (Bld) 54.0 % Normal 36.0 - 75.0 % Remisol Heme Platelet 257.0 E9/L Normal 150.0 - 500.0 E9/L Remisol Heme Platelet mean volume (Bld) [Entitic vol] 8.3 fL Normal 6.4 - 10.8 fL Remisol Heme RBC (Bld) [#/Vol] 4.8 E12/L Normal 4.3 - 5.9 E12/L Remisol Heme WBC corrected for nucl RBC Auto (Bld) [#/Vol] 7.1 E9/L Normal 4.0 - 11.0 E9/L Remisol Heme Hep Func Panelon 09-15-2024 Albumin [Mass/Vol] 4.5 g/dL Normal 3.3-5.0 [facility] Comment on above: Performed By: #### 2 [id number] #### [facility] [address] [place] [address] Albumin/Globulin (S) [Mass conc ratio] 2.0 Normal 1.1-2.2 [facility] Comment on above: Performed By: #### 2 [id number] #### [facility] [address] [place] [address] ALP [Catalytic activity/Vol] 41 Int._Unit/L Normal 21-98 [facility] Comment on above: Performed By: #### 2 [id number] #### [facility] [address] [place] [address] ALT No additional P-5'-P [Catalytic activity/Vol] 25 Int._Unit/L Normal 6-46 [facility] Comment on above: Performed By: #### 2 [id number] #### [facility] [address] [place] [address] AST [Catalytic activity/Vol] 19 Int._Unit/L Normal 5-43 [facility] Comment on above: Performed By: #### 2 [id number] #### [facility] [address] [place] [address] Bilirubin [Mass/Vol] 0.3 mg/dL Normal 0.0-1.1 [facility] Comment on above: Performed By: #### 2 [id number] #### [facility] [address] [place] [address] Bilirubin.direct [Mass/Vol] 0.1 mg/dL Normal 0.0-0.4 [facility] Comment on above: Performed By: #### 2 [id number] #### [facility] [address] [place] [address] Bilirubin.indirect [Mass or moles/Vol] 0.2 mg/dL Normal 0.1-0.9 [facility] Comment on above: Performed By: #### 2 [id number] #### [facility] [address] [place] [address] Globulin (S) [Mass/Vol] 2.3 g/dL Normal 1.4-4.0 [facility] Comment on above: Performed By: #### 2 [id number] #### [facility] [address] [place] [address] Protein [Mass/Vol] 6.8 g/dL Normal 6.0-7.8 [facility] Comment on above: Performed By: #### 2 [id number] #### [facility] [address] [place] [address] Lipase Levelon 09-15-2024 Lipase [Catalytic activity/Vol] 31 U/L Normal 13-58 [facility] Comment on above: Performed By: #### 2 [id number] #### [facility] [address] [place] [address] UA with Cult Rflxon 09-16-19 Type of Urine collection method Catheter Normal [facility] Comment on above: Performed By: #### 4 [id number] #### [facility] [address] [place] [address] eGFRon 09-15-2024 eGFR 89 mL/min/1.73 m2 Normal >=59 [facility] Comment on above: Performed By: #### 1 [id number] #### [facility] [address] [place] [address] Main OR Intraoperative Recor don 09-06-2024 Main OR Intraoperative Record Main OR Intraoperative Record IntraOp Document Type FT Summary Primary Physician: Pao Macedo MD Finalized Date/Time: 09/06/24 08:18:16 Pt. Name: SINAI LOCKWOOD Jericho KruseB./Sex: 1995 Female Med Rec #: [id number] Physician: Pao Macedo MD Financial #: [id number] Pt. Type: A Room[facility]Bed: [facility] Admit/Disch: 09/05/24 11:52:19 - 09/05/24 16:10:00 Institution: Case Times FT Entry 1 Patient Times In Room 09/05/24 12:58:00 Out Room 09/05/24 13:21:00 Procedure Times Start 09/05/24 13:11:00 Stop 09/05/24 13:16:00 Anesthesia Times Start 09/05/24 12:58:00 Stop 09/05/24 13:21:00 Last Modified By: Kyara BOBO, Harper Echavarria 09/05/24 13:21:17 General Comments: 09/06/24 Chart opened to review and send charges LRoth CSFA Case Attendance FT Entry 1 Entry 2 Entry 3 Case Attendee Remington CURTIS, Pao Short [facility], Antony Sparrow RN, Harper Echavarria Role Performed Surgeon - Primary Anesthesiologist Communications Equipment Installer - Primary Precision Crop Manager Time In 09/05/24 12:58:00 09/05/24 12:58:00 09/05/24 12:58:00 Time Out 09/05/24 13:21:00 09/05/24 13:21:00 09/05/24 13:21:00 Procedure CYSTOSCOPY(.) CYSTOSCOPY(.) CYSTOSCOPY(.) Comments DR. ROCA SUPERVISING Last Modified By: Kyara BOBO, Harper Sparrow RN, Harper Sparrow RN, Harper Echavarria 09/05/24 Michelle Echavarria 09/05/24 Michelle Echavarria 09/05/24 13:21:18 13:21:18 13:21:18 Entry 4 Case Attendee Ophelia Hernandez Role Performed Scrub - Primary Time In 09/05/24 12:58:00 Time Out 09/05/24 13:21:00 Procedure CYSTOSCOPY(.) Comments Last Modified By: Harper Sparrow RN 09/05/24 13:21:18 Perioperative Protocols FT Pre-Care Text: Implements protective measures prior to operative or invasive procedure, confirms identity before the operative or invasive procedure, verifies operative procedure, surgical site, and laterality Entry 1 Procedure(s) CYSTOSCOPY(.) Patient Identity Birthday, ID Band Verified (select at Check, Patient least 2): Participation Consents / H and P Anesthesia Consent, Operative Site N/A Verified H&P, Surgery/Procedure Marking Verified Consent Surgical Site Yes Laterality Verified n/a Verified Procedure Verified Yes Correct Patient Yes Position Verified Availability Equipment, Medication Prep Dry n/a Verified (If Applicable) PreOp Antibiotic Yes Time Out Antony Schumacher Lue Given Participants MD, Pao Lemus, Kyara BOBO, David Pink Laura C Time Out Complete 09/05/24 13:10:00 Outcomes Met? Yes Last Modified By: Harper Sparrow RN 09/05/24 13:11:40 Post-Care Text: The patient is free from signs and symptoms of injury caused by extraneous objects Allergy Information FT Pre-Care Text: Verifies allergies Entry 1 Allergies Reviewed? Yes Allergies Reviewed Self/Patient With Outcomes Met? Yes Last Modified By: Harper Sparrow RN 09/05/24 13:07:43 Post-Care Text: The patient received appropriate medication(s) safely administered during the perioperative period Surgical Procedures FT Entry 1 Procedure Description Procedure CYSTOSCOPY Modifiers . Surgeon Description CYSTOSCOPY, HYDRODISTENTION AND INSTILLATION OF BLADDER COCKTAIL Primary Procedure Yes Primary Surgeon Pao Macedo MD Start 09/05/24 13:11:00 Stop 09/05/24 13:16:00 Anesthesia Type General Surgical Service Urology Wound Class 2 - Clean-Contaminated Last Modified By: Harper Sparrow RN 09/05/24 13:18:05 General Case Data FT Pre-Care Text: Classifies surgical wound, implements aseptic technique, initiates traffic control Entry 1 Case Information OR OR 1 FT Case Level Level 2 Wound Class 2 - Clean-Contaminated Specialty Urology ASA Class 2 Preop Diagnosis INTERSTITIAL CYSTITIS Postop Same As Preop Yes Postop Diagnosis INTERSTITIAL CYSTITIS Outcomes Met? Yes Last Modified By: Harper Sparrow RN 09/05/24 13:08:11 Post-Care Text: The patient is free from signs and symptoms of infection Skin Assessment (Pre Procedure) FT Pre-Care Text: Implements protective measures to prevent skin/ tissue injury due to thermal or mechanical sources Evaluates for signs and symptoms of physical injury to skin and tissue Entry 1 Skin Integrity Intact, Guinda, Warm, & Skin Abnormality No Dry Outcomes Met? Yes Last Modified By: Harper Sparrow RN 09/05/24 13:08:16 Post-Care Text: The patient is free from signs and symptoms of injury caused by extraneous objects Patient Positioning FT Pre-Care Text: Identifies physical alterations that require additional precautions for procedure-specific positioning, verifies presence of prosthetics or corrective devices, positions the patient, evaluates the patient for signs and symptoms of injury as a result of positioning Entry 1 Procedure CYSTOSCOPY(.) Body Position Low Lithotomy Feet Uncrossed? Yes Left Arm Position Tucked and Padded at Side Right Arm Position Tucked and Pad (more content not included)... Normal [facility] Discharge Instructionson Discharge Instructions Discharge Instructions SINAI LOCKWOOD Jericho :1995 Visit Date:09/05/2024 Inpatient Discharge Instructions Your Care Team Admitting Physician - Pao Macedo MD Referring Physician - Pao Macedo MD What to do next Instructions From Your Doctor Event Name Event Result Discharge Activity Ambulate as tolerated, Resume normal activities in 24 hours, Activity as tolerated Discharge Restrictions No driving for 24 hrs Discharge Diet(s) Regular Call Your Doctor For Persistent or heavy bleeding, Temperature above 101.5 degrees Discharge Instructions Discharge Instructions New Follow Up Appointments after Discharge Follow Up with Pao Macedo When: Comments: Office to call for followup appointment in 1-2 months Where: [facility] [address], [address] [phone] Business (1) Medications What How Much When Instructions Next Dose New acetaminophen-hydrocodo ne ([place] 325 mg-5 mg oral tablet) 1 Tablets By Mouth Every 6 hours as needed for for pain severe pain Pickup at [facility] Unchanged amitriptyline (amitriptyline 25 mg Tab) 1 Tablets By Mouth Every day Unchanged metronidazole 500 Milligram By Mouth Every 12 hours Unchanged Non-Formulary Medication See instructions Unchanged tolterodine (tolterodine 2 mg Cap-ER) 1 Capsules By Mouth Every day Pharmacy Information [facility]: [address] [place], [place] [id number] [phone] [employer] Hydrodistention of the Bladder, Care After After hydrodistention of the bladder, it is common to have soreness and mild discomfort in your lower belly. It is also common to have: ??? Mild pain when you pass urine. This should stop after a few minutes. This may last for up to a week. ??? A small amount of blood in your urine. Follow these instructions at home: The instructions below may help you care for yourself at home. Your health care provider may give you more instructions. If you have questions, ask your health care provider. Medicines ??? If you were given a sedative during your procedure, do not drive or use machines until your doctor says that it is safe. A sedative is a medicine that helps you relax. ??? Take [id number] and prescription medicines only as told by your health care provider. ??? If you were prescribed antibiotics, take them as told by your doctor. Do not stop taking them even if you start to feel better. Lifestyle ??? Do not smoke or use any products that contain nicotine or tobacco. If you need help quitting, ask your health care provider. Activity ??? Return to your normal activities when your health care provider says that it is safe. ??? You may have to avoid lifting. Ask your health care provider how much you can safely lift. Eating and drinking ??? Follow instructions from your health care provider about what you may eat and drink. ??? Drink enough fluid to keep your urine pale yellow. General instructions ??? Keep all follow-up visits. This is important to get the results of your procedure. Contact a health care provider if: ??? You have blood clots in your urine. ??? You have pus in your urine. ??? You have pain that gets worse or does not get better with medicine. Do this especially for pain when you urinate. ??? You have difficulty passing urine. ??? You feel like you will vomit or you vomit for more than 2 days after the procedure. ??? You have a fever. Get help right away if: ??? You have very bad pain in your belly. ??? You cannot pass urine. ??? You have chest pain or it is hard to breathe. ??? You get swelling, pain, or both in your lower legs. These symptoms may be an emergency. Get help right away. Call 911. ??? Do not wait to see if the symptoms will go away. ??? Do not drive yourself to the hospital. Summary ??? After this procedure, it is common to have soreness in your lower belly, mild pain when you pass urine, and a small amount of blood in your urine. ??? Return to your normal activities when your health care provider says that it is safe. ??? Contact a health care provider if you have pain that gets worse, have a fever, see blood clots in your urine, or it is difficult pass urine. ??? Get help right away if you have very bad pain in your belly, cannot pass urine, feel it is hard to breathe, or get swelling and pain in the legs. This information is not intended to replace advice given to you by your health care provider. Make sure you discuss any questions you have with your health care provider. Document Revised: 10/27/2022 Document Reviewed: 10/26/2022 Elsevier Patient Education ??? 2023 [employer] Common Emergency Awareness Tips IS IT A STROKE? Act FAST and Check for these signs: FACE Does the face look uneven? ARM Does (more content not included)... Normal [facility] Comment on above: Result Comment: Elec tronically Signed By: Olinda Glynn\.br\Date and Time Signed: 09/05/24 13:44 EST Inpatient Patient Summaryon 09-05-2024 Inpatient Patient Summary Inpatient Patient Summary [address] [address] [facility] Clinical Discharge Instructions PERSON INFORMATION Name: SINAI LOCKWOOD [facility]IANS Admitting Physician: Pao Macedo MD Attending Physician: Pao Macedo MD PCP: LOGAN GERMAN, IVET Discharge Diagnosis: Comment: PATIENT EDUCATION INFORMATION Instructions: Hydrodistention of the Bladder, Care After Medication Leaflets: Follow up: With: Address: When: Pao [place] [address] [facility], [place] [address], [facility] [address] [place] [phone] Business (1) Comments: Office to call for followup appointment in 1-2 months MEDICATION LIST New Medications [facility], [address] [place], [place] [id number], [phone] acetaminophen-hydrocodo ne ([place] 325 mg-5 mg oral tablet) 1 Tablets By Mouth every 6 hours as needed for pain. severe pain. Refills: 0. Medications to Continue with No Changes Other Medications amitriptyline (amitriptyline 25 mg Tab) 1 Tablets By Mouth every day. Refills: 3. metronidazole 500 Milligram By Mouth every 12 hours. Non-Formulary Medication , 10mg valium, 5mg baclofen Suppisitory at bedtime tolterodine (tolterodine 2 mg Cap-ER) 1 Capsules By Mouth every day. Refills: 3. Comment: Normal [facility] Main OR PACU I Recordon Main OR PACU I Record Main OR PACU I Rec ord PACU Phase I Document Type FT Summary Primary Physician: Pao Macedo MD Finalized Date/Time: 09/05/24 14:32:24 Pt. Name: SINAI LOCKWOOD /Sex: 1995 Female Med Rec #: [id number] Physician: Pao Macedo MD Financial #: [id number] Pt. Type: A Room/Bed: [facility] Admit/Disch: 09/05/24 11:52:19 - Institution: Case Times PACU I FT Pre-Care Text: Identifies barriers to communication and implements measures to provide psychological support Develops individualized plan of care, and ensures continuity of care Maintains patient's dignity and privacy, and maintains patient confidentiality Identifies and reports philosophical, cultural, and spiritual beliefs and values Identifies individual values and wishes concerning care Implements aseptic technique, and administers prescribed antibiotic therapy and immunizing agents as ordered Evaluates postoperative tissue perfusion Implements thermoregulation measures, and monitors body temperature Evaluates postoperative respiratory status Evaluates postoperative cardiac status Evaluates postoperative neurological status Assesses pain control, collaborated in initiating patient-controlled analgesia and implements alternative methods of pain control Verifies allergies, administers prescribed medications and solutions, evaluates response to medications Entry 1 In PACU I 09/05/24 13:22:00 Discharge from PACU 09/05/24 14:22:00 I Outcomes Met? Yes Last Modified By: Shana Mejía I 09/05/24 14:32:09 Post-Care Text: The patient demonstrates knowledge of the expected response to the operative or invasive procedure The patient's care is consistent with the individualized perioperative plan of care The patient's right to privacy is maintained The patient's value system, lifestyle, ethnicity, and culture are considered, respected, and incorporated into the perioperative plan of care The patient participates in decisions affecting his or her perioperative plan of care The patient is free from signs and symptoms of infection The patient has wound/tissue perfusion consistent with or improved from baseline levels established preoperatively The patient is at or returning to normothermia at the conclusion of the immediate postoperative period The patient's respiratory function is consistent with or improved from baseline levels established preoperatively The patient's cardiovascular status is consistent with or improved from baseline levels established preoperatively The patient's cardiovascular status is consistent with or improved from baseline levels established preoperatively The patient demonstrates and/or reports adequate pain control throughout the perioperative period The patient received appropriate medication(s), safely administered during the perioperative period Acuity Level PACU I FT Entry 1 Start Time 09/05/24 13:22:00 Stop Time 09/05/24 14:22:00 Acuity Level Acuity Level I Last Modified By: Shana Mejía I 09/05/24 14:32:20 Finalized By: Shana Mejía I Document Signatures Signed By: Shana Mejía I 09/05/24 14:32 Normal [facility] Main OR PACU II Recordon Main OR PACU II Record Main OR PACU II Record PACU Phase II Document Type FT Summary Primary Physician: Pao Macedo MD Finalized Date/Time: 09/05/24 16:16:29 Pt. Name: SINAI LOCKWOOD Jericho /Sex: 1995 Female Med Rec #: [id number] Physician: Pao Macedo MD Financial #: [id number] Pt. Type: A Room/Bed: [facility] Admit/Disch: 09/05/24 11:52:19 - Institution: Case Times PACU II FT Pre-Care Text: Identifies barriers to communication and implements measures to provide psychological support and determines knowledge level Develops individualized plan of care, and ensures continuity of care Maintains patient's dignity and privacy, and maintains patient confidentiality Identifies and reports philosophical, cultural, and spiritual beliefs and values Identifies individual values and wishes concerning care administers prescribed antibiotic therapy and immunizing agents as ordered, Evaluates postoperative tissue perfusion Implements thermoregulation measures, and monitors body temperature Evaluates postoperative respiratory status Evaluates postoperative cardiac status Evaluates postoperative neurological status Assesses pain control, collaborated in initiating patient-controlled analgesia and implements alternative methods of pain control Verifies allergies, administers prescribed medications and solutions, evaluates response to medications Entry 1 In PACU II 09/05/24 14:30:00 Discharge from PACU 09/05/24 16:10:00 II Outcomes Met? Yes Last Modified By: Olinda Glynn 09/05/24 16:16:28 Post-Care Text: The patient demonstrates knowledge of the expected response to the operative or invasive procedure The patient's care is consistent with the individualized perioperative plan of care The patient's right to privacy is maintained The patient's value system, lifestyle, ethnicity, and culture are considered, respected, and incorporated into the perioperative plan of care The patient participates in decisions affecting his or her perioperative plan of care. The patient is free from signs and symptoms of infection The patient has wound/tissue perfusion consistent with or improved from baseline levels established preoperatively The patient is at or returning to normothermia at the conclusion of the immediate postoperative period The patient's respiratory function is consistent with or improved from baseline levels established preoperatively The patient's cardiovascular status is consistent with or improved from baseline levels established preoperatively The patient's neurological status is consistent with or improved from baseline levels established preoperatively The patient demonstrates and/or reports adequate pain control throughout the perioperative period The patient received appropriate medication(s), safely administered during the perioperative period Finalized By: Olinda Glynn Document Signatures Signed By: Olinda Glynn 09/05/24 16:16 Normal [facility] Main OR Preoperative Recordo n 09-05-2024 Main OR Preoperative Record Main OR Preoperative Record PreOp Document Type FT Summary Primary Physician: Pao Macedo MD Finalized Date/Time: 09/05/24 13:13:45 Pt. Name: SINAI LOCKWOOD [place] /Sex: 1995 Female Med Rec #: [id number] Physician: Pao Macedo MD Financial #: [id number] Pt. Type: A Room/Bed: [place] [address] Admit/Disch: 09/05/24 11:52:19 - Institution: Case Times PreOp FT Pre-Care Text: Verifies consent for planned procedure, identifies individual values and wishes concerning care, includes family members in perioperative teaching Entry 1 Patient Times. In Pre Surgery 09/05/24 12:00:00 Out Pre Surgery 09/05/24 12:56:00 Outcomes Met? Yes Last Modified By: Harepr Sparrow RN 09/05/24 13:13:44 Post-Care Text: The patient participates in decisions affecting his or her perioperative plan of care Finalized By: Harper Sparrow RN Document Signatures Signed By: Harper Sparrow RN 09/05/24 13:13 Normal [facility] Operative Reporton Operative Report Operative Report Patient: SINAI LOCKWOOD Age: 29 years Sex: Female : 1995 Associated Diagnoses: None Author: Pao Macedo MD Procedure Procedure Date: 09/05/2024. Confirmed: patient, procedure, site, safety procedures followed. Performed by: Pao Macedo MD, anesthesiologist (Antony VELEZ). Type of procedure: Cystoscopy, hydrodistention, instillation of bladder cocktail for interstitial cystitis . Informed consent: signed by patient. Indication: 29-year-old female with a history of interstitial cystitis presents today for cystoscopy, hydrodistention and instillation of bladder cocktail after discussion of risk, benefits, management options and alternatives. Risks were discussed including but not limited to bleeding, pain, infection, damage to surrounding structures and need for additional procedures.. Findings: Bladder capacity 300 cc with very visible muscle fibers at this volume, held for 1 minute at 60 cm of water. No Hunner's lesions, bladder tumors or lesions. Instillation of 50 mL DMSO, 20,000 units of heparin, 50 Aruna of sodium bicarbonate, 10 mg of triamcinolone and lidocaine gel. . Procedure tolerated: well. Specimen: none. Complications: none. PROCEDURE IN DETAIL: After the risks, benefits, indications, alternatives and expectations of the procedure were reviewed with the patient and informed consent was obtained, the patient was taken to operative suite and placed in the supine position. Sequential compression devices were placed on bilateral lower extremities. MAC anesthesia was induced and the patient was transitioned to the lithotomy position and prepped and draped in the usual sterile fashion for cystoscopy. A preoperative dose of antibiotics was given. A timeout was observed prior to initiating the procedure. Lidocaine gel was inserted into the urethra and bladder. We began the procedure using a 22.5 Slovak rigid cystoscope, 30 degree lens, and inserted this into the bladder without any issue. We noted a normal appearance of the urethra en route to the bladder, findings as above. Once inside the bladder, a cystoscopic examination revealed no bladder tumors, lesions, stones or foreign bodies. Bilateral ureteral orifices were orthotopic and patent. With a pressure of 60 cm H2O, the bladder was filled until visible capacity at near 300 cc. This was held for 1 minute. The bladder was drained and the mucosa evaluated confirming no Hunner's lesions or petechiae. Bladder cocktail prepared by pharmacy as above was instilled through the cystoscope and the cystoscope removed. Lidocaine gel was inserted per urethra. The procedure was then concluded and the patient was awakened from general anesthesia and sent to the PACU in satisfactory condition. CULTURES TAKEN: none PATIENT CONDITION: Stable and extubated PLAN: Void after 30 minutes. Follow-up in 1 to 2 months for reevaluation.. Impression and Plan Diagnosis Pain due to interstitial cystitis ([id number] N30.10, Working, Medical). Diagnosis Pain due to interstitial cystitis ([id number] N30.10, Working, Medical). [facility] Comment on above: Result Comment: Elec tronically Signed By: Remington CURTIS, Pao Lemus\.br\Date and Time Signed: 09/05/24 13:46 EST Outpatient Surgery Discharge Instructionon 09-05-2024 Outpatient Surgery Discharge Instruction Outpatient Surgery Discharge Instruction [place] [id number] Patient Discharge Instructions PERSON INFORMATION Name: SINAI LOCKWOOD Date of : 1995 Current Date: 09/05/2024 13:34:20 PHYSICIANS Admitting Physician: Pao Macedo MD Discharge Diagnosis: GILES SINAI [place] has been given the following list of follow-up instructions, prescriptions, and patient education materials: PATIENT FOLLOW-UP INFORMATION Diet: Regular Discharge Activity: Ambulate as tolerated, Resume normal activities in 24 hours, Activity as tolerated Discharge Restrictions: No driving for 24 hrs Call Your Doctor For: Persistent or heavy bleeding, Temperature above 101.5 degrees IF UNABLE TO CONTACT YOUR PHYSICIAN AND YOU FEEL IT IS AN EMERGENCY, GO TO THE NEAREST EMERGENCY ROOM OR CALL 911 IGILES EMILY P, have received the attached patient education materials/instructions and have verbalized understanding: May we do a follow up call? Yes No I was present when discharge instructions were given Patient Signature Date Clinican/Nurse Signature _ Date Follow up: With: Address: When: Pao Macedo [address], [place] [address], [facility] [address] [place] [address] [phone] Business (1) Comments: Office to call for followup appointment in 1-2 months Pharmacy Information: You may receive a survey from Laura Mario asking you to rate your care experience. Your feedback is important and will help us understand what we do well and how we can improve the quality of care we provide to you, your loved ones and our community. It???s an honor to serve you. Thank you for choosing [facility] HERE ARE THE MEDICATION CHANGES THAT OCCURRED DURING YOUR HOSPITAL STAY New Medications [facility] [address], [address] [place], [place] [id number], [phone] acetaminophen-hydrocodo ne ([place] 325 mg-5 mg oral tablet) 1 Tablets By Mouth every 6 hours as needed for pain. severe pain. Refills: 0. Medications to Continue with No Changes Other Medications amitriptyline (amitriptyline 25 mg Tab) 1 Tablets By Mouth every day. Refills: 3. metronidazole 500 Milligram By Mouth every 12 hours. Non-Formulary Medication , 10mg valium, 5mg baclofen Suppisitory at bedtime tolterodine (tolterodine 2 mg Cap-ER) 1 Capsules By Mouth every day. Refills: 3. PATIENT EDUCATION INFORMATION Instructions: Hydrodistention of the Bladder, Care After After hydrodistention of the bladder, it is common to have soreness and mild discomfort in your lower belly. It is also common to have: ??? Mild pain when you pass urine. This should stop after a few minutes. This may last for up to a week. ??? A small amount of blood in your urine. Follow these instructions at home: The instructions below may help you care for yourself at home. Your health care provider may give you more instructions. If you have questions, ask your health care provider. Medicines ??? If you were given a sedative during your procedure, do not drive or use machines until your doctor says that it is safe. A sedative is a medicine that helps you relax. ??? Take ctct-dzi-qppralx and prescription medicines only as told by your health care provider. ??? If you were prescribed antibiotics, take them as told by your doctor. Do not stop taking them even if you start to feel better. Lifestyle ??? Do not smoke or use any products that contain nicotine or tobacco. If you need help quitting, ask your health care provider. Activity ??? Return to your normal activities when your health care provider says that it is safe. ??? You may have to avoid lifting. Ask your health care provider how much you can safely lift. Eating and drinking ??? Follow instructions from your health care provider about what you may eat and drink. ??? Drink enough fluid to keep your urine pale yellow. General instructions ??? Keep all follow-up visits. This is important to get the results of your procedure. Contact a health care provider if: ??? You have blood clots in your urine. ??? You have pus in your urine. ??? You have pain that gets worse or does not get better with medicine. Do this especially for pain when you urinate. ??? You have difficulty passing urine. ??? You feel like you will vomit or you vomit for more than 2 days after the procedure. ??? You have a fever. Get help right away if: ??? You have very bad pain in your belly. ??? You cannot pass urine. ??? You have chest pain or it is hard to breathe. ??? You (more content not included)... Normal [facility] BMPon 08-30-2024 Anion gap [Moles/Vol] 9 mmol/L Normal 6-16 [facility] Comment on above: Performed By: #### 2 [id number] #### [facility] Laboratory [address] [place] [address] Calcium [Mass/Vol] 8.8 mg/dL Low 8.9-11.1 [facility] Comment on above: Performed By: #### 2 [id number] #### [facility] [address] [place] [address] Chloride [Moles/Vol] 104 mmol/L Normal 101-111 [facility] Comment on above: Performed By: #### 2 [id number] #### [facility] [address] [place] [address] CO2 [Moles/Vol] 27 mmol/L Normal 21-31 [facility] Comment on above: Performed By: #### 2 [id number] #### [facility] [address] [place] [address] Creatinine [Mass/Vol] 0.9 mg/dL Normal 0.5-1.3 [facility] Comment on above: Performed By: #### 2 [id number] #### [facility] [address] [place] [address] Glucose [Mass/Vol] 84 mg/dL Normal 55-199 [facility] Comment on above: Performed By: #### 2 [id number] #### [facility] [address] [place] [address] Potassium [Moles/Vol] 3.6 mmol/L Normal 3.5-5.3 [facility] Comment on above: Performed By: #### 2 [id number] #### [facility] [address] [place] [address] Sodium [Moles/Vol] 136 mmol/L Normal 135-145 [facility] Comment on above: Performed By: #### 2 [id number] #### [facility] [address] [place] [address] Urea nitrogen [Mass/Vol] 17 mg/dL Normal 5-21 [facility] Comment on above: Performed By: #### 2 [id number] #### [facility] [address] [place] [address] Urea nitrogen/Creatinine [Mass ratio] 19 No Units Normal 10-20 [facility] Comment on above: Performed By: #### 2 [id number] #### [facility] [address] [place] [address] CBC w/ Auto Diffon 5 Basophils/100 WBC (Bld) 0.5 % Normal 0.0-2.0 [facility] Comment on above: Performed By: #### 2 [id number] #### [facility] [address] [place] [address] Basophils/Leukocytes Auto (Bld) [Pure # fraction] 0.1 E9/L Normal 0.0-0.2 [facility] Comment on above: Performed By: #### 2 [id number] #### [facility] [address] [place] [address] Eosinophils (Bld) [#/Vol] 0.1 E9/L Normal 0.0-0.5 [facility] Comment on above: Performed By: #### 2 [id number] #### [facility] [address] [place] [address] Eosinophils/100 WBC (Bld) 0.6 % Normal 0.0-8.0 [facility] Comment on above: Performed By: #### 2 [id number] #### [facility] [address] [place] [address] Erythrocyte distribution width (RBC) [Ratio] 12.2 % Normal 10.9-14.2 [facility] Comment on above: Performed By: #### 2 [id number] #### [facility] [address] [place] [address] Hematocrit (Bld) [Volume fraction] 42.2 % Normal 34.0-46.0 [facility] Comment on above: Performed By: #### 2 [id number] #### [facility] [address] [place] [address] Hemoglobin (Bld) [Mass/Vol] 14.7 g/dL Normal 12.0-16.0 [facility] Comment on above: Performed By: #### 2 [id number] #### [facility] [address] [place] [address] Lymphocytes (Bld) [#/Vol] 2.7 E9/L Normal 1.0-4.0 [facility] Comment on above: Performed By: #### 2 [id number] #### [facility] [address] [place] [address] Lymphocytes/100 WBC (Bld) 26.4 % Normal 14.0-50.0 [facility] Comment on above: Performed By: #### 2 [id number] #### [facility] [address] [place] [address] MCH (RBC) [Entitic mass] 31.2 pg Normal 27.0-34.0 [facility] Comment on above: Performed By: #### 2 [id number] #### [facility] [address] [place] [address] MCHC (RBC) [Mass/Vol] 34.9 g/dL Normal 31.4-36.0 [facility] Comment on above: Performed By: #### 2 [id number] #### [facility] [address] [place] [address] MCV (RBC) [Entitic vol] 89.3 fL Normal 80.0-100.0 [facility] Comment on above: Performed By: #### 2 [id number] #### [facility] [address] [place] [address] Monocytes (Bld) [#/Vol] 0.6 E9/L Normal 0.2-1.0 [facility] Comment on above: Performed By: #### 2 [id number] #### [facility] [address] [place] [address] Neutrophils (Bld) [#/Vol] 6.9 E9/L Normal 2.0-7.5 [facility] Comment on above: Performed By: #### 2 [id number] #### [facility] [address] [place] [address] Neutrophils/100 WBC (Bld) 66.7 % Normal 36.0-75.0 [facility] Comment on above: Performed By: #### 2 [id number] #### [facility] [address] [place] [address] Platelet mean volume (Bld) [Entitic vol] 8.3 fL Normal 6.4-10.8 [facility] Comment on above: Performed By: #### 2 [id number] #### [facility] [address] [place] [address] Platelets (Bld) [#/Vol] 287.0 E9/L Normal 150.0-500.0 [facility] Comment on above: Performed By: #### 2 [id number] #### [facility] [address] [place] [address] RBC (Bld) [#/Vol] 4.7 E12/L Normal 4.3-5.9 [facility] Comment on above: Performed By: #### 2 [id number] #### [facility] [address] [place] [address] WBC corrected for nucl RBC Auto (Bld) [#/Vol] 10.4 E9/L Normal 4.0-11.0 [facility] Comment on above: Performed By: #### 2 [id number] #### [facility] [address] [place] [address] CHEMISTRYOrdered By: SYSTEM SYSTEM on 08-30-2024 Anion gap [Moles/Vol] 9 mmol/L Normal 6 - 16 mEq/L R emisol Chem Calcium [Mass/Vol] 8.8 mg/dL Low 8.9 - 11. 1 mg/dL Rem[facility] Chem Chloride [Moles/Vol] 104 mmol/L Normal 101 - 1 11 mmol/L [facility] Chem CO2 [Moles/Vol] 27 mmol/L Normal 21 - 31 mmol/L [facility] Chem Creatinine [Mass/Vol] 0.9 mg/dL Normal 0.5 - 1.3 mg/dL [facility] Chem eGFR 90 mL/min/1.73 m2 Normal >=59mL/min /1. 73 m2 [facility] Glucose [Mass/Vol] 84 mg/dL Normal 55 - 199 mg/dL [facility] Potassium [Moles/Vol] 3.6 mmol/L Normal 3.5 - 5.3 mmol/L [facility] Sodium [Moles/Vol] 136 mmol/L Normal 135 - 145 mmol/L [facility] Urea nitrogen [Mass/Vol] 17 mg/dL Normal 5 - 21 mg/dL [facility] Urea nitrogen/Creatinine [Mass ratio] 19 mg/mg Normal 10 - 20 [facility] COAGULATIONOrdered By: Dede Witt on 08-30-2024 aPTT Coag (PPP) [Time] 27.9 s Normal 25.1 - 36.5 second(s) [facility] Coag Comment on above: Interpretive Data: P arameter 15 days - 4 weeks 1 - 5 months 6 - 11 months 1 - 5 years 6 - 10 years 11 - 17 years PTT Mean: 35.4 (27.6-45.6) Mean: 33.5 (24.8-40.7) Mean: 32.4 (25.1-40.7) Mean: 31.6 (24.0-39.2) Mean: 31.6 (26.9-38.7) Mean: 31.0 (24.6-38.4) Pediatric Reference ranges were obtained from a study by Kemar Rivas et al. prepared from 1437 samples obtained at 7 different centers using the same coagulation reagent and instrumentation as [facility]. Currently there are no coagulation studies available worldwide for children to 14 days, and no normal ranges. Heparin therapeutic range (represented by Anti-Factor Xa activity of 0.2 - 0.4 U/mL) corresponds to PTT of 56.6 - 109.0 sec. INR Coag (PPP) [Relative time] 0.98 {INR} Invalid Interpretation Code [facility] Comment on above: Interpretive Data: I NR results are specifically intended to assess patients stabilized on long-term Anticoagulation therapy suggested INR s Less Intensive Anticoagulation 2.0 3.0 Conventional Range 3.0 4.5 PT Coag (PPP) [Time] 11.0 s Normal 9.4 - 1 2.5 second(s) [facility] Comment on above: Interpretive Data: 1 5 days - 4 weeks 1 - 5 months 6 -11 months 1-5 years 6-10 years 11 -17 years Mean: 11.2 (9.5-12.6) Mean: 11.0 (9.7-12.8) Mean: 11.0 (9.8-13.0) Mean: 11.3 (9.9-13.4) Mean: 11.7 (10.0-14.6) Mean: 11.8 (10.0 - 14.1) Pediatric Reference ranges were obtained from a study by Kemar Rivas et al. prepared from 1437 samples obtained at 7 different centers using the same coagulation reagent and instrumentation as [facility]. Currently there are no coagulation studies available worldwide for children to 14 days, and no normal ranges. HEMATOLOGYOrdered By: SYSTEM SYSTEM on 08-30-2024 Basophils/100 WBC (Bld) 0.5 % Normal 0.0 - 2.0 % Remisol Heme Basophils/Leukocytes Auto (Bld) [Pure # fraction] 0.1 E9/L Normal 0.0 - 0.2 E9/L Remisol Heme Eosinophils (Bld) [#/Vol] 0.1 E9/L Normal 0.0 - 0.5 E9/L Remisol [facility]e Eosinophils/100 WBC (Bld) 0.6 % Normal 0.0 - 8.0 % Remisol Heme Erythrocyte distribution width (RBC) [Ratio] 12.2 % Normal 10.9 - 14.2 % Rem[facility]e Hematocrit (Bld) [Volume fraction] 42.2 % Normal 34.0 - 46.0 % Remisol Heme Hemoglobin (Bld) [Mass/Vol] 14.7 g/dL Normal 12.0 - 16.0 gm/dL Rem[facility]e Lymphocytes (Bld) [#/Vol] 2.7 E9/L Normal 1.0 - 4.0 E9/L Rem[facility]e Lymphocytes/100 WBC (Bld) 26.4 % Normal 14.0 - 50.0 % Remisol Heme MCH (RBC) [Entitic mass] 31.2 pg Normal 27.0 - 34.0 pg Remisol Heme MCHC (RBC) [Mass/Vol] 34.9 g/dL Normal 31.4 - 36.0 gm/dL Remisol Heme MCV (RBC) [Entitic vol] 89.3 fL Normal 80.0 - 100.0 fL Rem[facility] Heme Monocytes (Bld) [#/Vol] 0.6 E9/L Normal 0.2 - 1.0 E9/L Rem[facility] Heme Monocytes/100 WBC (Bld) 5.8 % Normal 4.0 - 14.0 % Remisol Heme Neutrophils (Bld) [#/Vol] 6.9 E9/L Normal 2.0 - 7.5 E9/L Remisol Heme Neutrophils/100 WBC (Bld) 66.7 % Normal 36.0 - 75.0 % Remisol Heme Platelet mean volume (Bld) [Entitic vol] 8.3 fL Normal 6.4 - 10.8 fL Rem[facility] Heme Platelets (Bld) [#/Vol] 287.0 E9/L Normal 150.0 - 500.0 E9/L Remisol Heme RBC (Bld) [#/Vol] 4.7 E12/L Normal 4.3 - 5.9 E12/L Remisol Heme WBC corrected for nucl RBC Auto (Bld) [#/Vol] 10.4 E9/L Normal 4.0 - 11.0 E9/L Remisol Heme PT & PTTon 08-30-2024 aPTT Coag (PPP) [Time] 27.9 second(s) Normal 25.1-36.5 [facility] Comment on above: Result Comment: Para meter 15 days - 4 weeks 1 - 5 months 6 - 11 months 1 - 5 years 6 - 10 years 11 - 17 years PTT Mean: 35.4 (27.6-45.6) Mean: 33.5 (24.8-40.7) Mean: 32.4 (25.1-40.7) Mean: 31.6 (24.0-39.2) Mean: 31.6 (26.9-38.7) Mean: 31.0 (24.6-38.4) Pediatric Reference ranges were obtained from a study by Kemar Rivas et al. prepared from 1437 samples obtained at 7 different centers using the same coagulation reagent and instrumentation as [facility]. Currently there are no coagulation studies available worldwide for children to 14 days, and no normal ranges. Heparin therapeutic range (represented by Anti-Factor Xa activity of 0.2 - 0.4 U/mL) corresponds to PTT of 56.6 - 109.0 sec. Performed By: #### 1 [id number] #### [facility] [address] [place] [address] INR Coag (PPP) [Relative time] 0.98 {INR} Invalid Interpretation Code [facility] Comment on above: Result Comment: INR results are specifically intended to assess patients stabilized on long-term Anticoagulation therapy suggested INR???s ???Less Intensive Anticoagulation??? 2.0 ??? 3.0 Conventional Range 3.0 ??? 4.5 Performed By: #### 1 [id number] #### [facility] [address] [place] [address] PT Coag (PPP) [Time] 11.0 second(s) Normal 9.4-12.5 [facility] Comment on above: Result Comment: 15 d ays - 4 weeks 1 - 5 months 6 -11 months 1- 5 years 6-10 years 11 -17 years Mean: 11.2 (9.5-12.6) Mean: 11.0 (9.7-12.8) Mean: 11.0 (9.8-13.0) Mean: 11.3 (9.9-13.4) Mean: 11.7 (10.0-14.6) Mean: 11.8 (10.0 - 14.1) Pediatric Reference ranges were obtained from a study by Kemar Rivas et al. prepared from 1437 samples obtained at 7 different centers using the same coagulation reagent and instrumentation as [facility]. Currently there are no coagulation studies available worldwide for children to 14 days, and no normal ranges. Performed By: #### 1 [id number] #### [facility] [address] [place] [address] UA with Cult Rflxon 08-30-19 25 Bilirubin Ql (U) Negative Normal Negative [facility] Comment on above: Performed By: #### 4 [id number] #### [facility] [facility] [address] [place] [address] Clarity (U) Clear Normal Clear [facility] Comment on above: Performed By: #### 4 [id number] #### [facility] [address] [place] [address] Color (U) Colorless Abnormal Yellow [facility] Comment on above: Result Comment: Micr oscopic readings are only performed on those samples that meet specific criteria set forth by [facility]. Performed By: #### 4 [id number] #### [facility] [address] [place] [address] Glucose Ql (U) Negative Normal Negative [facility] Comment on above: Performed By: #### 4 [id number] #### [facility] [address] [place] [address] Hemoglobin Auto test strip (U) [Mass/Vol] Negative Normal Negative [facility] Comment on above: Performed By: #### 4 [id number] #### [facility] [address] [place] [address] Ketones Auto test strip Ql (U) Negative Normal Negative [facility] Comment on above: Performed By: #### 4 [id number] #### [facility] [address] [place] [address] Leukocyte esterase Auto test strip Ql (U) Negative Normal Negative [facility] Comment on above: Performed By: #### 4 [id number] #### [facility] [address] [place] [address] Nitrite Auto test strip Ql (U) Negative Normal Negative [facility] Comment on above: Performed By: #### 4 [id number] #### [facility] [address] [place] [address] pH (U) 6.5 [pH] Invalid Interpretation Code 5.0-9.0 [facility] Comment on above: Performed By: #### 4 [id number] #### [facility] [address] [place] [address] Protein Ql (U) Negative Normal Negative [facility] Comment on above: Performed By: #### 4 [id number] #### [facility] [address] [place] [address] Specific gravity (U) [Rel density] 1.004 Invalid Interpretation Code 1.005-1.030 [facility] Comment on above: Performed By: #### 4 [id number] #### [facility] [address] [place] [address] Urobilinogen (U) [Mass/Vol] Negative Normal Negative [facility] Comment on above: Performed By: #### 4 [id number] #### [facility] [address] [place] [address] Type of Urine collection method Clean Catch Normal [facility] Comment on above: Performed By: #### 4 [id number] #### [facility] [address] [place] [address] URINALYSISOrdered By: SYSTEM SYSTEM on 08-30-2024 Bilirubin Ql (U) Negative Normal Negativemg/dL [facility] UA Auto SS Clarity (U) Clear (08/30/24 3:35 PM) Normal Clear [facility] UA Auto SS Color (U) Colorless 1 *ABN* (08/30/24 3:35 PM) Invalid Interpretation Code Yellow [facility] UA Auto SS Comment on above: Interpretive Data: M icroscopic readings are only performed on those samples that meet specific criteria set forth by [facility]. Glucose Ql (U) Negative Normal Negativemg/dL [facility] UA Auto SS Hemoglobin Auto test strip (U) [Mass/Vol] Negative Normal Negativemg/dL [facility] UA Aut o SS Ketones Auto test strip Ql (U) Negative Normal Negativemg/dL [facility] UA Auto SS Leukocyte esterase Auto test strip Ql (U) Negative Normal NegativeLeu/u L [facility] UA Auto SS Nitrite Auto test strip Ql (U) Negative Normal Negativemg/dL [facility] UA Auto SS pH (U) 6.5 *NA* (08/30/24 3:35 PM) Invalid Interpretation Code 5.0 - 9.0 [facility] UA Auto SS Protein Ql (U) Negative Normal Negativemg/dL [facility] UA Auto SS Specific gravity (U) [Rel density] 1.004 *NA* (08/30/24 3:35 PM) Invalid Interpretation Code 1.005 - 1.030 [facility] UA Auto SS Urobilinogen (U) [Mass/Vol] Negative Normal Negativemg/dL [facility] UA Auto SS URINALYSISOrdered By: Suha Sarkar on 08-30-2024 UA Spec Desc Clean Catch (08/30/24 3:35 PM) Normal [facility] UA Auto SS eGFRon 08-30-2024 eGFR 90 mL/min/1.73 m2 Normal >=59 [facility] Comment on above: Performed By: #### 1 [id number] #### [facility] [address] [place] [address] Provider Letteron 08-11-2024 Provider Letter Provider Letter [address] [place] [address] [phone] August 11, 2024 SINAI LOCKWOOD [address] [address] : 1995 To Whom It May Concern, Please excuse above patient from work. Date of Illness: 08/09/2024 May Return to Work On: 08/10/24 Sincerely, Dr. Pao Macedo [facility] [address] [place] [address]. [place] [address] Normal [facility] Urine Cytology ([facility])on 08-02-2024 Microscopic exam Cytology (U) [Interp] Diagnosis Info Invalid Interpretation Code [facility] Comment on above: Result Comment: A:Ur ine,Urine:Voided Interpretation - Adequate cellularity for evaluation. CPT 79282 MicroScopic Description - Adequacy - Gross Description Site ID:A color Yellow fixative Alcohol Specimen designated Urine received in alcohol preservative and labeled with the patient???s name, consists of 40ml clear yellow fluid. Electronically signed by : on: 08/02/2024 13:26:10 Performed By: #### 1 [id number] #### [facility] [address] [place] [address] Ambulatory Visit Summaryon 0 07-27-2024 Ambulatory Visit Summary Ambulatory Visit Summary GILES SINAI Echavarria :1995 Visit Date:07/27/2024 Ambulatory Visit Instructions Your Diagnosis Interstitial cystitis Gross hematuria OAB (overactive bladder) Incomplete bladder emptying Pelvic floor dysfunction Myofascial muscle pain Your Care Team Attending Physician - Remington CURTIS, Pao Lemus Primary Care Physician - IVET LAWLER This Is Your Medications List amitriptyline (amitriptyline 10 mg Tab) Contact prescribing physician if questions or concerns fluconazole (Diflucan 150 mg Tab) Procedures Performed Cystoscopy (12/02/2021), Cystourethroscopy with dilation of urethral stricture (07/24/2020), Cystoscopy (2019), History of tonsillectomy, Hysterectomy, Laparoscope, Laser uterosacral nerve ablation, AUDI - Laser uterosacral nerve ablation. Discharge Vitals Heart Rate (Peripheral) 68 Blood Pressure 128/80 Height 158 cm Height 62 in Weight 56.2 kg Weight 123.9 lb BMI 22.51 What to do next You Need to Schedule the Following Appointments Follow Up with Remington CURTIS, Pao Lemus, ALFONSO, URO When: Where: Medications What How Much When Why Instructions Unchanged amitriptyline (amitriptyline 10 mg Tab) 1 Tablets By Mouth 3 times a day Interstitial cystitis Hematuria Unchanged fluconazole (Diflucan 150 mg Tab) See instructions Vaginal yeast infection Dysuria 1 tab Oral Once If symptoms persist may repeat dose 72 hours after intial Contact prescribing physician if questions or concerns Allergies Latex (Hives) penicillin (Hives) Problems Ongoing - Any problem that you are currently receiving treatment for. Adverse reaction to COVID-19 vaccine Arm skin lesion, right Asymptomatic microscopic hematuria BMI 22.0-22.9, adult BMI 23.0-23.9, adult BV (bacterial vaginosis) Endometriosis Gross hematuria Incomplete bladder emptying Interstitial cystitis Musculoskeletal disorder involving upper trapezius muscle Myofascial muscle pain Non-smoker Non-tobacco user Nonsmoker OAB (overactive bladder) Pelvic floor dysfunction Rectal bleeding Sinusitis Vaginal yeast infection Vomiting Historical - Any problem that you are no longer receiving treatment for. Endometriosis Seizure Patient Survey You may receive a survey via text or e-mail asking about your office visit. Please share your experience with us by completing your survey. We appreciate your feedback and thank you for choosing us for your care. Education Materials Interstitial Cystitis Interstitial cystitis is inflammation of the bladder. This condition is also known as painful bladder syndrome. This may cause pain in the bladder area as well as a frequent and urgent need to urinate. The bladder is an organ that stores urine after the urine is made in the kidneys. The severity of interstitial cystitis can vary from person to person. You may have flare-ups, and then your symptoms may go away for a while. For many people, it becomes a long-term (chronic) problem. What are the causes? The cause of this condition is not known. What increases the risk? The following factors may make you more likely to develop this condition: ??? Being female. ??? Having fibromyalgia. ??? Having irritable bowel syndrome (IBS). ??? Having endometriosis. ??? Having chronic fatigue syndrome. This condition may be aggravated by: ??? Stress. ??? Smoking. ??? Spicy foods. What are the signs or symptoms? Symptoms of interstitial cystitis vary, and they can change management lead time. Symptoms may include: ??? Discomfort or pain in the bladder area, which is in the lower abdomen. Pain can range from mild to severe. The pain may change in intensity as the bladder fills with urine or as it empties. ??? Pain in the pelvic area, between the hip bones. ??? A constant urge to urinate. ??? Frequent urination. ??? Pain during urination. ??? Pain during sex. ??? Blood in the urine. ??? Feeling tired (fatigue). For women, symptoms often get worse during menstruation. How is this diagnosed? This condition is diagnosed based on your symptoms, your medical history, and a physical exam. Your health care provider may need to rule out other conditions and may order other tests, such as: ??? Urine tests. ??? Cystoscopy. For this test, a tool similar to a very thin telescope is used to look into your bladder. ??? Biopsy. This involves taking a sample of tissue from the bladder to be examined under a microscope. How is this treated? There is no cure for this condition, but treatment can help you control your symptoms. Work closely with your health care provider to find the most effective treatments for you. Treatment options may include: ??? Medicines to relieve pain and reduce how often you feel the need to urinate. This treatment may include: ? A procedure where a small amount of medicine that eas (more content not included)... Normal [facility] Provider Letteron 07-27-2024 Provider Letter Provider Letter July 27, 2024 SINAI LOCKWOOD [address] [place] [address] [place] [address] : 1995 To Whom It May Concern, Please excuse above patient from work for the afternoon of 07/27/24. May Return to Work On: 07/28/24 Sincerely, Pao Muñoz MD [facility] [address] [place] [address] Normal [facility] Urine Cytology ([facility])on 0 07-27-2024 Method of Extraction Voided Normal [facility] Comment on above: Performed By: #### 1 [id number] #### [facility] [address] [place] [address] Number of Jars 1 Invalid Interpretation Code [facility] Comment on above: Performed By: #### 1 [id number] #### [facility] [address] [place] [address] Specimen Urine Normal [facility] Comment on above: Performed By: #### 1 [id number] #### [facility] [address] [place] [address] Type of Service Technical Only Normal [facility] Comment on above: Performed By: #### 1 [id number] #### [facility] [address] [place] [address] Urology Office/Clinic Noteon 07-27-2024 Urology Office/Clinic Note Urology Office/Clinic Note Chief Complaint interstitial cystitis HPI Staff 29 year old female here to discuss interstitial cystitis Previous DX: vaginal yeast infection and dysuria 06/27/24 patient was seen [facility]O vaginal itching and burning. Pts states that she is also having burning and pressure with urination- culture was negative as well as vaginal swabs Pt was scheduled for Botox 100 units 10/12/22 however she canceled and did not wish to reschedule at that time. Dysuria: _yes Incomplete bladder emptying: _sometimes Hematuria: _not since Apr Frequency: _q1-2 hrs Urgency: _yes Nocturia: _2x Stream: _varies Leaking: _yes Post void dripping: _yes Wearing pads/ Depends: _pads Urge incontinence: _yes Stress incontinence: _yes Incontinence without Sensory Awareness: _no Abdominal pain: _yes, with bloating Flank pain: _yes Sexual complaints: _ History of Present Illness Tests reviewed: reviewed UA, external: CT, UCx. I have reviewed the previous health record information and history for this patient from Dr. Macedo I have reviewed and verified the staff HPI to be accurate for this encounter. There have been no associated fever, chills, flank pain, or blood in the urine. Denies any urinary infections since last encounter. Review of Systems PHQ Score Initial Depression Screen Score: 0 SCORE ROS - Provider Constitutional: denies weight loss, denies hot flashes. Eyes: denies eye problems. Gastrointestinal: denies nausea, denies vomiting. Cardiovascular: denies chest pain or angina. Integumentary: no dryness Musculoskeletal: denies musculoskeletal symptoms. ENMT: denies otolaryngeal symptoms. Respiratory: no shortness of breath. Heme/Lymph: denies easy bleeding tendency, denies easy bruising tendency. Psychiatric: no confusion, no anxiety. Genitourinary: See HPI. Physical Exam Vitals & Measurements HR: 68(Peripheral) BP: 128/80 HT: 62 in HT: 158 cm WT: 56.2 kg WT: 123.9 lb BMI: 22.51 General Appearance: alert , no acute distress, well nourished, well developed female. Assessment/Plan 29 yo female with hx IC lost in follow up due to losing insurance. Pt accompanied by today. 1. Interstitial cystitis (N30.10: Interstitial cystitis (chronic) without hematuria) Diagnosed with IC in July 2020 by outside urologist s/p hydrodistention with cocktail of heparin, DMSO, and Kenalog, dilation of mid urethral stricture with relief for 6 months. Her bladder capacity was 300cc at that time. Robotic hysterectomy for endometriosis 05/2022 along with hydrodistention of saline. Operative note had endometriosis within her peritoneal cavity as well, bladder was negative. S/p Cysto/hydrodistension 12/02/21, capacity improved to 600mL. Sxs improved 30-40%. No hunner lesions. Severe pain initially post op Hx of having improvement with Gabapentin (made her loopy) and Amitriptyline. KUB 08/14/22 - neg. Renal US 08/17/22 - neg. IC flare up at that time, was experiencing severe abdominal pain and nausea. Urine culture at that time was neg. CT AP w con 09/25/23 [facility] - neg for stones or hydro. BBSQ 16 (ICIQ 8) She was doing really well with behavioral modifications, exercises and stress mgmt. Started new job and now having IC flares. Flare in April with gross hematuria and abdominal pain/pressure. Still experiencing constant abdominal/flank/pelvic pain. Reports overall she has had 3 flare ups this past year that last anywhere from 2-4 days. Pt reports she needs FMLA paperwork filled out. Seen at urgent care 06/27/24 due to vaginal itching and burning. Neg UCx 06/29/24. Recently started on Amitriptyline 10mg tid by primary care. Mild improvement. Will send new script for 25mg qd. Has run out of Valium/Baclofen suppositories. Had improvement while using. Will send new script. Again discussed hydrodistention and instillation of cocktail of heparin, DMSO, and Kenalog under MAC. May consider instillation without hydrodistension given her pain with it. -New rx sent for Valium 10mg/Baclofen 5 mg suppository through [facility] -Scheduling cysto. The risks and benefits for cystoscopy have been discussed. The risks include bleeding, infection, and irritation of the bladder and urinary channel, among others. The patient, after being informed of procedural details and after questions have been answered, wishes to proceed. Full informed consent has been obtained. Will order Local anesthesia. -Consider instillation of cocktail of heparin, DMSO and Kenalog 2. Gross hematuria (R31.0: Gross hematuria) Micro UA 06/2022 neg (0-3 RBCs) Prior cystoscopy negative for concerning lesions ~ done for IC Never a smoker. CT with contrast [facility] - september neg Reports 2-3 occasions of gross hematuria since last visit. Due to gross hematuria, we will proceed with cystoscopy. Pt agrees with plan. -Schedule cysto, see above -Urine cytology sent 3. OAB (overactive bladder) (N32.81: Overactive bladder) Prior trospi (more content not included)... Normal [facility] Comment on above: Result Comment: Elec tronically Signed By: Pao Macedo MD\.br\Date and Time Signed: 07/27/24 16:21 EST\.br\Electronically Co-Signed By: Faith Zapata\.br\Date and Time Co-Signed: 07/27/24 15:51 EST Urinalysis macro (dipstick) panel (U)on 07-18-2024 Bilirubin, UA Negative Negative - 4(70) +++ mg/dL [facility] Blood, UA Negative Negative - 50 Shay/mcL [facility] Clarity, UA Clear [facility] Color, UA Yellow [facility] Glucose, UA Negative Negative - 2000(110) ++++ mg/dL [facility] Interpretation and review of laboratory results Normal [facility] Ketones, UA Negative Negative - 160(16) ++++ mg/dL [facility] Leukocytes, UA Negative Negative - 500+++ Eleni/mcL [facility] Nitrite, UA Negative Negative - Positive [facility] pH, UA 7 5 - 9 [facility] Protein, UA Negative Negative - 2000(20) ++++ mg/dL [facility] Spec Grav, UA 1.02 1 - 1.03 [facility] Urobilinogen, UA 0.2 0.2 - 12 mg/dL [facility] Vaginitis/Vaginosis, DNA Pro beon 06-30-2024 Daisy sp rRNA Probe Ql (Vag fld) Negative Invalid Interpretation Code Negative [facility] Comment on above: Performed By: #### 3 [id number] #### [facility] [address] [place] [address] G. vaginalis rRNA Probe Ql (Genital specimen) Negative Invalid Interpretation Code Negative [facility] Comment on above: Performed By: #### 3 [id number] #### [facility] [address] [place] [address] T. vaginalis rRNA Probe Ql (Genital specimen) Negative Invalid Interpretation Code Negative [facility] Comment on above: Result Comment: Perf ormed at: [facility] [address] [id number] PhD Michael Tinoco Performed By: #### 3 [id number] #### [facility] [address] [place] [address] C Urineon 06-29-2024 Bacteria identified Cx Nom (U) Microbiology PROCEDURE: Urine Culture [R1] SOURCE: U CleanCatch BODY SITE: COLLECTED DATE/TIME: 06/27/2024 10:17 EST RECEIVED DATE/TIME: 06/27/2024 14:44 EST START DATE/TIME: 06/27/2024 14:44 EST FREE TEXT SOURCE: Pepe Alegria PA-C, PA-C, Jamie M. FINAL REPORTS Final Report [] Verified Date/Time: 06/29/2024 09:05 EST 3,000 cfu/ml Mixed skin contaminants Performing Locations R1: This test was performed at: [facility], [address] [place] [address], [phone] , , [facility] Comment on above: Performed By: #### 2 [id number] #### [facility] [address] [place] [address] Ambulatory Visit Summaryon 1 08-28-2023 Ambulatory Visit Summary Ambulatory Visit Summary SINAI LOCKWOOD :1995 Visit Date:06/27/2024 Ambulatory Visit Instructions Your Diagnosis Vaginal yeast infection Dysuria Your Care Team Attending Physician - Pepe Alegria PA-C Primary Care Physician - IVET LAWLER This Is Your Medications List fluconazole (Diflucan 150 mg Tab) Contact prescribing physician if questions or concerns amitriptyline (amitriptyline 10 mg Tab) Procedures Performed Cystoscopy (12/02/2021), Cystourethroscopy with dilation of urethral stricture (07/24/2020), Cystoscopy (2019), History of tonsillectomy, Hysterectomy, Laparoscope, Laser uterosacral nerve ablation, AUDI - Laser uterosacral nerve ablation. Discharge Vitals Temperature (Temporal Artery) 37 ???C Heart Rate (Peripheral) 86 Respiratory Rate 16 Blood Pressure 120/80 Height 158 cm Height 62 in Weight 56.2 kg Weight 123.9 lb BMI 22.51 What to do next Scheduled Follow-Up Appointments 2024 3:00 PM EST With: Remington CURTIS, Pao Lemus Where: [facility] of [address], [address] [place] [address]- You Need to Schedule the Following Appointments Follow Up with LOGAN GERMAN, ZACKARY COONEY When: Medications What How Much When Why Instructions New fluconazole (Diflucan 150 mg Tab) See instructions Vaginal yeast infection Dysuria 1 tab Oral Once If symptoms persist may repeat dose 72 hours after intial Pickup at [facility] Unchanged amitriptyline (amitriptyline 10 mg Tab) 1 Tablets By Mouth 3 times a day Interstitial cystitis Hematuria Contact prescribing physician if questions or concerns Pharmacy Information [facility]: [address] [place], [place] [id number] [phone] Allergies Latex (Hives) penicillin (Hives) Problems Ongoing - Any problem that you are currently receiving treatment for. Adverse reaction to COVID-19 vaccine Arm skin lesion, right Asymptomatic microscopic hematuria BMI 22.0-22.9, adult BMI 23.0-23.9, adult BV (bacterial vaginosis) Endometriosis Incomplete bladder emptying Interstitial cystitis Musculoskeletal disorder involving upper trapezius muscle Myofascial muscle pain Non-smoker Non-tobacco user Nonsmoker OAB (overactive bladder) Pelvic floor dysfunction Rectal bleeding Sinusitis Vaginal yeast infection Vomiting Historical - Any problem that you are no longer receiving treatment for. Endometriosis Seizure Patient Survey You may receive a survey via text or e-mail asking about your office visit. Please share your experience with us by completing your survey. We appreciate your feedback and thank you for choosing us for your care. Normal [facility] Family Medicine Office/Clini c Noteon 06-27-2024 Family Medicine Office/Clinic Note Family Medicine Office/Clinic Note Chief Complaint dysuria, vaginal itching/burning HPI Staff 29 year old female presents for vaginal itching and burning. Pts states that she is also having burning and pressure with urination. Pt states that she has palmira using Monistat and AZO. Onset- 4 days History of Present Illness I have reviewed and verified the staff HPI to be accurate for this encounter. Portions of this record have been created with voice recognition software. Occasional wrong-word or ???[id number]??? substitutions may have occurred due to the inherent limitations of voice recognition software. 29-year-old female presents today with concern for a yeast infection. Patient states she has been having vaginal itching and burning x 4 days duration is also having burning and pressure with urination. States she has been using [id number] Monistat and AZO as needed for symptoms. Patient states a urology history in regards to having history of interstitial cystitis which can mimic UTIs states she takes amitriptyline for that and follows up with urology. States she also follows up with Dr. Danny HILLS in regards to issues with the reoccurring vaginal yeast/bacterial vaginosis and has also been treated for Ureaplasma in the past. Patient states that she does have history of partial hysterectomy x 3 years ago but still states imbalances in regards to the vaginal region states that the elky-pty-rirfqts Monistat and AZO has not been helping and she states pain with intercourse. She denies any abdominal pain nausea vomiting or loose stool felt warm yesterday but denies any fever or chills. She has no other concerns at this time. Review of Systems PHQ Score Initial Depression Screen Score: 0 SCORE ROS negative unless otherwise stated in HPI. Physical Exam Vitals & Measurements T: 37 ???C(Temporal Artery) HR: 86(Peripheral) RR: 16 BP: 120/80 SpO2: 99% HT: 62 in HT: 158 cm WT: 56.2 kg WT: 123.9 lb BMI: 22.51 General: Well developed, well nourished, in no acute distress Eyes: not assessed Ears: not assessed Nose: not addressed Mouth: not assessed Neck: not assessed Lungs: Lung sounds are clear bilaterally. No wheezing rhonchi or crackles on exam Cardio: S1, S2, regular rhythm. No murmurs gallops or rubs. Abdomen: Bowel sounds are present x 4 quadrants. Abdomen is soft, nontender, nondistended. No rigidity rebound or guarding on exam. No flank pain. Musculoskeletal: No CVA tenderness Extremity: not assessed Neurologic: not assessed Skin: not assessed Mental Status: Alert and oriented x3. Normal mood and affect Assessment/Plan Urine dip in office notes trace leuks otherwise negative will send for culture to confirm bacterial growth given history of interstitial cystitis which patient is in agreement with patient did self swab in the office in which we will send for rule out vaginal yeast infection as well as BV patient understands that also test for trichomonas. She denies any history of STI. No concern for STI today. Patient will follow closely with MANUFACTURE SPECIALIST. Understands we will contact her in the next 2 to 4 days in regards to urine culture results in the next 4 to 10 days in regards to vaginal swab. Diflucan was sent to the pharmacy for the patient for treatment of vaginal yeast infection given vaginal itching over the past 4 days patient has taken this medication before and has tolerated in the past. She has no other concerns at this time. 1. Vaginal yeast infection (B37.31: Acute candidiasis of vulva and vagina) I spoke with patient regards to treatment of vaginal yeast infection. Patient did self swab in office in which she understands that that swab will test for yeast, BV in addition to trichomonas. Patient is understanding and agreement we will go ahead and treat patient with Diflucan 1 tablet once followed by a second dose if symptoms persist 72 hours after initial dose in which patient agrees understands plan otherwise will follow closely with MANUFACTURE SPECIALIST or return if needed Ordered: fluconazole, See Instructions, 1 tab Oral Once If symptoms persist may repeat dose 72 hours after intial, # 2 tab(s), Refills(s) 0, Pharmacy: [facility], 158, cm, 06/27/24 10:04:00 EST, Height/Length Dosing, 56.2, kg, 06/27/24 10:03:00 EST, Weight... 2. Dysuria (R30.0: Dysuria) Urine dip in office notes trace leukocytes otherwise negative will send for culture to confirm bacterial growth given patient history of interstitial cystitis which patient is in agreement with we will hold off on antibiotic treatment at that time patient understands urine culture should return towards the next 2 to 4 days in which she will then be notified in regards to that result Ordered: fluconazole, See Instructions, 1 tab Oral Once If symptoms persist may repeat dose 72 hours after intial, # 2 tab(s), Refills(s) 0, Pharmacy: [facility], 158, cm, 06/27/24 10:04:00 EST, Height/Length Dosing, 56.2, kg, 06/27/24 10:03:00 EST, Weight... Urine Cultu (more content not included)... Normal [facility] Comment on above: Result Comment: Elec tronically Signed By: Raji DAVIESPepe\.br\Date and Time Signed: 06/27/24 10:46 EST Patient Letter FTon 2023 Patient Letter [facility] [place] Patient Letter [facility] [address], [place] [phone] June 27, 2024 SINAIJORDI PEGUEROUIAR [address] [address] : 1995 Please excuse SINAI LOCKWOOD from work . Date and/or Time of Absence: From: 06/26/24 To: 06/28/24 May return to work on: 06/28/24 Restrictions: None Comments: Please excuse due to an acute illness. Provider Signature: Pepe Alegria PA-C Physician [employer] C[employer] Manager [facility] [address] [place] [address] [facility] Family Medicine Office/Clini c Noteon 06-07-2024 Family Medicine Office/Clinic Note Family Medicine Office/Clinic Note Chief Complaint cough HPI Staff 29 year old female presents with sinus congestion, sore throat, cough, body aches for the past week otc: mucinex, day quil, nyquil, cough supressant History of Present Illness I have reviewed and verified the staff HPI to be accurate for this encounter. Portions of this record have been created with voice recognition software. Occasional wrong-word or ???iqvhm-g-vzyg??? substitutions may have occurred due to the inherent limitations of voice recognition software. 29 yo female presents today with cc of sinus congestion, sore throat, cough, body aches x 1 week duration states has been taking [id number]-[id number] Mucinex DayQuil NyQuil cough suppressant without much relief of symptoms. States that her family recently got over pneumonia which is her concern today. Patient states that she started with cough and sore throat last week states a little bit of a runny stuffy nose denies any ear pain. Denies any fever with onset of symptoms but states she spiked a fever today of 101. States she left work early because of that. She states cough is dry states she wishes it would be productive because she states it is so dry it is hurting her chest she denies any chest pain states occasional shortness of breath but denies any difficulty breathing. States that her kids had been seen and treated for pneumonia. She denies any history of asthma. No smoking history. No concerns for history of hysterectomy. She denies any abdominal pain nausea vomiting but does state loose stool also started today. She denies any known COVID-19 or influenza exposure. She felt that she was starting to improve however today started feeling worse again. She has no other concerns at this time. Medication allergies to latex and penicillin. Review of Systems PHQ Score Initial Depression Screen Score: 0 SCORE ROS negative unless otherwise stated in HPI. Physical Exam Vitals & Measurements HR: 73(Peripheral) BP: 118/70 SpO2: 98% HT: 62 in HT: 158 cm WT: 56.1 kg WT: 123.679 lb BMI: 22.47 General: Well developed, well nourished, in no acute distress Eyes: Bilateral conjunctiva within normal limits no injection Ears: Bilateral TMs are within normal limits no erythema or bulging. Bilateral external auditory canals are within normal limits no erythema or edema Nose: No deformity, discharge, inflammation, or lesions Mouth: Moist mucous membranes. Uvula is midline. No acute tonsillar erythema edema or exudate. No signs of peritonsillar abscess. No trismus or drooling. Neck: no adenopathy Lungs: Lung sounds are clear bilaterally. No wheezing rhonchi or crackles on exam. Symmetrical expansion. No signs of respiratory distress. Cardio: S1, S2, regular rhythm. No murmurs gallops or rubs. Abdomen: not assessed Musculoskeletal: not assessed Extremity: not assessed Neurologic: not assessed Skin: not assessed Mental Status: Alert and oriented x3. Normal mood and affect Assessment/Plan I spoke with patient regards to her symptoms I have concern for pneumonia given that symptoms worsened today and fever has developed. Patient is in agreement to chest x-ray. She understands that at this time at night the radiology report will be sent to an offsite radiologist to be read so we will not have that report until tomorrow morning. We will contact her in regards to radiology report. Plan is to treat patient with Zithromax 500 mg daily x 5 days duration, Tessalon Perles 1 tablet every 8 hours as needed for cough and addition of prednisone or steroid 40 mg daily x 5 days and to treat and cover for that of community-acquired pneumonia. Patient is in agreement with this plan may otherwise return if needed. She would seek ER for reevaluation if she were to develop any chest pain shortness of breath or difficulty breathing. 1. CAP (community acquired pneumonia) (J18.9: Pneumonia, unspecified organism) See above Cough (R05.9: Cough, unspecified) Ordered: azithromycin, 500 mg = 1 tab(s), Oral, Daily, X 5 day(s), # 5 tab(s), Refills(s) 0, Pharmacy: [facility], 158, cm, 06/06/24 18:17:00 EST, Height/Length Dosing, 56.1, kg, 06/06/24 18:17:00 EST, Weight Dosing benzonatate, 100 mg = 1 cap(s), Oral, TID, X 7 day(s), # 21 cap(s), Refills(s) 0, Pharmacy: [facility], 158, cm, 06/06/24 18:17:00 EST, Height/Length Dosing, 56.1, kg, 06/06/24 18:17:00 EST, Weight Dosing predniSONE, 40 mg = 2 tab(s), Oral, Daily, X 5 day(s), # 10 tab(s), Refills(s) 0, Pharmacy: [facility], 158, cm, 06/06/24 18:17:00 EST, Height/Length Dosing, 56.1, kg, 06/06/24 18:17:00 EST, Weight Dosing XR Chest 2 Views Follow-up With When Contact Information LOGAN GERMAN, ZACKARY COONEY Additional Instructions: Patient Education Community-Acquired Pneumonia, Adult Problem List/Past Medical History Ongoing Adverse reaction to COVID-19 vaccine Arm skin lesion, right Asymptomatic microscopic hematuria (more content not included)... Normal [facility] Comment on above: Result Comment: Elec tronically Signed By: Raji DAVIES, Pepe Lemus\.br\Date and Time Signed: 06/07/24 08:44 EST XR Chest 2 Viewson XR Chest 2 Views Exam Date/Time: 06/06/2024 18:30 EST Reason for Exam: cough x 1 week, fever today;Cough Report IMPRESSION: NO EVIDENCE OF ACTIVE CARDIOPULMONARY DISEASE. EXAM: XR Chest 2 Views DATE: 06/06/2024 6:30 PM CLINICAL HISTORY: Cough, cough x 1 week, fever today. COMPARISON: Portable chest 04/13/[address] abdomen and pelvis 09/25/2023. TECHNIQUE: Upright PA and lateral radiographs of the chest were obtained. FINDINGS: There is no significant pulmonary infiltrate, cardiomegaly, pleural effusion, vascular congestion, pneumothorax, or displaced fractures identified. Ordering Provider: Pepe Alegria FINAL REPORT Dictated: 06/07/2024 4:45 am Seth Stephenson MD Signed (Electronic Signature): 06/07/2024 4:45 am Signed by: Seth Stephenson MD Transcribed by: BHAVYA Technologist: BUD Technical Comments Radiation Dose: Ka,r in mGy = na DAP = na Normal [facility] Ambulatory Visit Summaryon 1 08-07-2023 Ambulatory Visit Summary Ambulatory Visit Summary SINAI LOCKWOOD :1995 Visit Date:06/06/2024 Ambulatory Visit Instructions Your Diagnosis CAP (community acquired pneumonia) Cough Your Care Team Attending Physician - Pepe Alegria PA-C Primary Care Physician - IVET LAWLER This Is Your Medications List azithromycin (Zithromax 500 mg oral tablet) benzonatate (Tessalon 100 mg Cap) predniSONE (predniSONE 20 mg Tab) Contact prescribing physician if questions or concerns amitriptyline (amitriptyline 10 mg Tab) Procedures Performed Cystoscopy (12/02/2021), Cystourethroscopy with dilation of urethral stricture (07/24/2020), Cystoscopy (2019), History of tonsillectomy, Hysterectomy, Laparoscope, Laser uterosacral nerve ablation, AUDI - Laser uterosacral nerve ablation. Discharge Vitals Heart Rate (Peripheral) 73 Blood Pressure 118/70 Height 158 cm Height 62 in Weight 56.1 kg Weight 123.679 lb BMI 22.47 What to do next Scheduled Follow-Up Appointments 2024 3:00 PM EST With: Pao Macedo MD Where: [facility] [address], [address] [place] [address]- Medications What How Much When Why Instructions New azithromycin (Zithromax 500 mg oral tablet) 1 Tablets By Mouth Every day Cough Duration: 5 Days Pickup at [facility] New benzonatate (Tessalon 100 mg Cap) 1 Capsules By Mouth 3 times a day Cough Duration: 7 Days Pickup at [facility] New predniSONE (predniSONE 20 mg Tab) 2 Tablets By Mouth Every day Cough Duration: 5 Days Pickup at [facility] Unchanged amitriptyline (amitriptyline 10 mg Tab) 1 Tablets By Mouth 3 times a day Interstitial cystitis Hematuria Contact prescribing physician if questions or concerns Pharmacy Information [facility]: [address] [place], [place] [id number] [phone] Allergies Latex (Hives) penicillin (Hives) Problems Ongoing - Any problem that you are currently receiving treatment for. Adverse reaction to COVID-19 vaccine Arm skin lesion, right Asymptomatic microscopic hematuria BMI 22.0-22.9, adult BMI 23.0-23.9, adult BV (bacterial vaginosis) Endometriosis Incomplete bladder emptying Interstitial cystitis Musculoskeletal disorder involving upper trapezius muscle Myofascial muscle pain Non-smoker Non-tobacco user Nonsmoker OAB (overactive bladder) Pelvic floor dysfunction Rectal bleeding Sinusitis Vaginal yeast infection Vomiting Historical - Any problem that you are no longer receiving treatment for. Endometriosis Seizure Patient Survey You may receive a survey via text or e-mail asking about your office visit. Please share your experience with us by completing your survey. We appreciate your feedback and thank you for choosing us for your care. Normal [facility] Patient Letter FTon 2023 Patient Letter [facility] [place] Patient Letter [facility] [address] [place] [phone] June 06, 2024 SINAI LOCKWOOD [address] [address] : 1995 Please excuse SINAI LOCKWOOD from work . Date and/or Time of Absence: From: 06/06/24 To: 06/08/24 May return to work on: 06/08/24 Restrictions: None Comments: Please excuse due to an acute illness. Provider Signature: Pepe Alegria PA-C Physician [employer] C[employer] Manager [facility] [address] [place] [address] Normal [facility] Chlamydia/Gonococcus, NAAon 05-23-2024 C. trachomatis rRNA MAVERICK+probe Ql (Unsp spec) Negative Invalid Interpretation Code Negative [facility] Comment on above: Performed By: #### 1 [id number] #### [facility] Laboratory [address] [place] [address] N. gonorrhoeae rRNA MAVERICK+probe Ql (Unsp spec) Negative Invalid Interpretation Code Negative [facility] Comment on above: Result Comment: Perf ormed at: =G [facility] [address] [place], [place] [id number] MD Dontrell Peoples Performed By: #### 1 [id number] #### [facility] [address] [place] [address] Family Medicine Office/Clini c Noteon 05-19-2024 Family Medicine Office/Clinic Note Family Medicine Office/Clinic Note Chief Complaint Hematuria HPI Staff Pt presents today due to hematuria this morning. States she has Hx of interstitial cystitis. Feels bloated. Extreme pain before during & 15min after voiding. Does feel swollen around urethral area. History of Present Illness 29 year old patient of Amber Faith CNP presents today for evaluation of blood in her urine. She reports she has a diagnosis of interstitial cystitis. She was previously being treated by Dr. Ashraf urology. She reports currently she is using diet and lifestyle modification to control the IC. She reports she started with some blood in her urine earlier today. She is not opposed to starting a medication. She reports she does need a note because she called off work yesterday and today. Review of Systems PHQ Score Initial Depression Screen Score: 0 SCORE Constitutional: no fever, no chills, no sweats, no weakness Skin: no Jaundice, no rash, no lesions, nopetechiae Respiratory: no shortness of breath, no cough, no orthopnea, no wheezing Cardiovascular: no chest pain, no palpitations, no edema Genitourinary: no dysuria, no hematuria, no discharge, no pain Musculoskeletal: no back pain, no trauma Neurologic: no headache, no dizziness, no numbness, no weakness Psychiatric: no sleeping problems, no irritability, no mood swings/depression. Additional ROS info: Except as noted in the above Review of Systems and in the History of Present Illness all other systems have been reviewed and are negative or noncontributory. Physical Exam Vitals & Measurements T: 36.9 ???C(Oral) HR: 70(Peripheral) RR: 16 BP: 120/72 SpO2: 99% HT: 62 in HT: 158 cm WT: 56.1 kg WT: 123.679 lb BMI: 22.47 General: alert, no acute distress Skin: warm, dry Head: no trauma, normocephalic Neck: Trachea midline, no adenopathy, no tenderness Eye: normal conjunctiva, sclera clear Cardiovascular: regular rate and rhythm, normal peripheral perfusion Respiratory: Lungs CTA, respirations non labored Gastrointestinal: soft, non distended, no tenderness, no guarding. Back: Mild CV tenderness on the right, Normal ROM, Normal alignment. Extremities: no deformity, no trauma Neurological: oriented x 4, LOC appropriate for age speech normal Psychiatric: cooperative, affect appropriate for age, normal judgement, normal psychiatric thoughts. Assessment/Plan 1. Interstitial cystitis (N30.10: Interstitial cystitis (chronic) without hematuria) Discussed diagnosis of interstitial cystitis Encouraged to call urologist Note provided for employer Start amitriptyline 10 mg 1 tablet 3 times daily Follow-up with PCP Ordered: amitriptyline, 10 mg = 1 tab(s), Oral, TID, # 90 tab(s), Refills(s) 1, Pharmacy: [facility], 158, cm, 05/19/24 10:00:00 EST, Height/Length Dosing, 56.1, kg, 05/19/24 10:05:00 EST, Weight Dosing 2. Hematuria (R31.9: Hematuria, unspecified) POC UA negative Discussed diagnosis of interstitial cystitis Encouraged to call urologist Start amitriptyline 10 mg 1 tablet 3 times daily Follow-up with PCP Ordered: amitriptyline, 10 mg = 1 tab(s), Oral, TID, # 90 tab(s), Refills(s) 1, Pharmacy: [facility], 158, cm, 05/19/24 10:00:00 EST, Height/Length Dosing, 56.1, kg, 05/19/24 10:05:00 EST, Weight Dosing Urnls Dip Stick Auto w/o Microscopy POC [id number] 3. BMI 22.0-22.9, adult (Z68.22: Body mass index [BMI] 22.0-22.9, adult) Normal BMI 4. Nonsmoker (Z78.9: Other specified health status) Encouraged to continue is a non-smoker Follow-up No qualifying data available Patient Education Interstitial Cystitis Problem List/Past Medical History Ongoing Adverse reaction to COVID-19 vaccine Arm skin lesion, right Asymptomatic microscopic hematuria BMI 22.0-22.9, adult BMI 23.0-23.9, adult BV (bacterial vaginosis) Endometriosis Incomplete bladder emptying Interstitial cystitis Musculoskeletal disorder involving upper trapezius muscle Myofascial muscle pain Non-smoker Non-tobacco user Nonsmoker OAB (overactive bladder) Pelvic floor dysfunction Rectal bleeding Sinusitis Vaginal yeast infection Vomiting Historical Endometriosis Seizure Procedure/Surgical History Cystoscopy (12/02/2021), Cystourethroscopy with dilation of urethral stricture (07/24/2020), Cystoscopy (2019), History of tonsillectomy, Hysterectomy, Laparoscope, Laser uterosacral nerve ablation, AUDI - Laser uterosacral nerve ablation. Medications amitriptyline 10 mg Tab, 10 mg= 1 tab(s), Oral, TID, 1 refills Allergies Latex (Hives) penicillin (Hives) Social History Alcohol - Denies Alcohol Use, 12/17/2020 Never., 05/19/2024 Substance Abuse - High Risk, 12/17/2020 Never., 05/19/2024 Tobacco - Denies Tobacco Use, 12/17/2020 Never (less than 100 in lifetime) Tobacco Use:. Never Smokeless Tobacco Use:. Household tobacco concerns: No. Yes, 05/19/2024 Family History Family history is negative I (more content not included)... Normal [facility] Comment on above: Result Comment: Elec tronically Signed By: LC EDMONDS CNP\.br\Date and Time Signed: 05/19/24 10:29 EST Provider Letteron 05-19-2024 Provider Letter Provider Letter May 19, [address] [place] [address] : 1995 To Whom It May Concern, Please excuse above patient from work. Date of Illness: From: 05/18/2024 To: 05/19/2024 May Return to Work On: 05/22/2024 Sincerely, Family [address] [address] Normal [facility] IGP,APTIMA HPV,AGE GDLNon AGE GDLN ACOG TESTING Note . [facility] Comment on above: TESTS RESULT FLAG UN ITS REF RANGE LAB Clinician Provided Cytology Information Source.............Vagina No. of containers..01 ThinPrep Vial Age Algo ACOG Shivani... FLAG LEGEND: L-Low Normal,H-High Normal,LL-Alert Low,HH-Alert High <-Panic Low,>-Panic High,A-Abnormal,AA-Critical Abnormal Performed at: 01 =G [facility] [place] [address] Richelle Jon MD, IGP, RFX APTIMA HPV ASCU Note . [facility] Comment on above: TESTS RESULT FLAG UN ITS REF RANGE LAB DIAGNOSIS: 02 NEGATIVE FOR INTRAEPITHELIAL LESION OR MALIGNANCY. Specimen adequacy: 02 Satisfactory for evaluation. No endocervical component is identified. Performed by: 02 Tiffanie Christian, Manufacturing Software Engineer ([facility]) . 02 Note: Note 02 The Pap smear is a screening test designed to aid in the detection of premalignant and malignant conditions of the uterine cervix. It is not a diagnostic procedure and should not be used as the sole means of detecting cervical cancer. Both false-positive and false-negative reports do occur. Test Methodology: Note 02 This liquid based ThinPrep(R) pap test was screened with the use of an image guided system. . 02 The HPV DNA reflex criteria were not met with this specimen result therefore, no HPV testing was performed. FLAG LEGEND: L-Low Normal,H-High Normal,LL-Alert Low,HH-Alert High <-Panic Low,>-Panic High,A-Abnormal,AA-Critical Abnormal Performed at: [address] [place] [address] Richelle Jon MD, Performed at: = - [facility] [id number] Oil Seal Assembler: Richelle Jon MD, Phone: [phone] Performed at: [facility] [address] [place] [id number] Oil Seal Assembler: Richelle Jon MD, Phone: [phone] [facility] Provider Letteron 03-20-2024 Provider Letter Provider Letter March 20, 2024 [place] [address] : 1995 To Whom It May Concern, Please excuse above patient from work. Date of Illness: From: 03/17/2024 To: _03/20/2024 May Return to Work On:03/21/2024 Sincerely, [facility] [address] [place] [address], [place] [address] [facility] Family Medicine Office/Clini c Noteon 03-18-2024 Family Medicine Office/Clinic Note Family Medicine Office/Clinic Note Chief Complaint possible sinus infection HPI Staff complaints of possible sinus infection Onset: over a week Characteristics: congestion, pressure/headache, post nasal drainage, fever, ears hurt OTC tried: DayQuil, NyQuil, Tylenol, Mucinex History of Present Illness I have reviewed and verified the staff HPI to be accurate for this encounter. Portions of this record have been created with voice recognition software. Occasional wrong-word or ?ihgoi-y-yzmm? substitutions may have occurred due to the inherent limitations of voice recognition software. 29 yo female presents today with cc of possible sinus infection. Patient states that she started not feeling well about the end of the last week or Wednesday developed a little bit of runny stuffy nose congestion and scratchy throat. States has somewhat continued initially thought it could be allergies denies any recent sick contacts or recent travel. Patient states she worked at home most of the week this week went into the office yesterday however states earlier this week Wednesday into Wednesday she began feeling worse states she developed fever ear pain lots of sinus pressure headache postnasal drip. States Wednesday and were by far the worst stated that today was a little bit better however she continues with the symptoms she has been taking [id number] DayQuil NyQuil Tylenol and Mucinex. She denies any known COVID-19 influenza or strep exposure that she is aware of states that the scratchy sore throat has resolved. She denies any upset stomach nausea vomiting diarrhea. Denies abdominal pain. Denies any sick contacts at home. She denies any loss of sense of taste or smell. She has no other concerns at this time. Review of Systems PHQ Score Initial Depression Screen Score: 0 SCORE ROS negative unless otherwise stated in HPI. Physical Exam Vitals & Measurements T: 37.0 ?C(Oral) HR: 85(Peripheral) BP: 108/76 SpO2: 98% HT: 62 in HT: 158 cm WT: 55.5 kg WT: 122.1 lb BMI: 22.23 General: Well developed, well nourished, in no acute distress Eyes: Bilateral conjunctiva with some injection Ears: Bilateral TMs are within normal limits no erythema or bulging. Bilateral external auditory canals are within normal limits no erythema or edema Nose: mild nasal mucosa inflammation and edema no active drainage deformity or lesion Mouth: Moist mucous membranes. Uvula is midline. No acute tonsillar erythema edema or exudate. No signs of peritonsillar abscess. No trismus or drooling. Neck: no adenopathy Lungs: Lung sounds are clear bilaterally. No wheezing rhonchi or crackles on exam. Cardio: S1, S2, regular rhythm. No murmurs gallops or rubs. Abdomen: not assessed Musculoskeletal: not assessed Extremity: not assessed Neurologic: not assessed Skin: not assessed Mental Status: Alert and oriented x3. Normal mood and affect Assessment/Plan Patient had positive rapid COVID-19 test in office. Discussed with patient this positive result discussed that she may have started early with symptoms however started with fever on Wednesday discussed in regards to a total of 5-day isolation. And when she may return to work as early as Wednesday next week as long as she is fever free for full 24 hours with symptomatic improvement. 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 She will continue fluids rest supportive management. I discussed with patient symptomatic treatment with Flonase nasal spray twice daily x 7 days duration in addition of Bromfed-DM combination cough suppressant nasal decongestant every 6 hours as needed for cough and congestion which patient is in agreement with. She is to follow closely with primary care provider to ensure improvement of symptoms otherwise ER for any severely worsening symptoms. Patient agrees and understands plan of care may return if needed otherwise 1. COVID-19 (U07.1: COVID-19) Discussed that COVID is a viral syndrome which typically last 5 to 12 days. Continue symptomatic treatment with As needed Tylenol/ibuprofen for any discomfort. Fluids, rest encouraged. New CDC guidelines are to quarantine x5 days from symptom onset. After 5 days may return to normal activities as long as overall improvement of symptoms and no fever for 24 hours. Needs to continue to wear a mask in public and while at work or school for the next 5 days after quarantine ends. Follow-up with PCP if symptoms or not improving over the next 2 weeks, ER if any significant shortness of breath or signs of respiratory distress. Patient verbalized understanding. Non-smoker (Z78.9: Other specified health status) Sore throat (J02.9: Acute pharyngitis, unspecified) Follow-up With When Contact Information IVET LAWLER [facility] Additional Instructions: Patient Education COVID-19 COVID-19 Problem List/Past Medical History Ongoing Adverse reaction to COVID-19 vaccine Arm skin lesion, rig (more content not included)... Normal [facility] Comment on above: Result Comment: Elec tronically Signed By: Pepe Alegria PA-C\.br\Date and Time Signed: 03/18/24 20:15 EDT Ambulatory Visit Summaryon 0 03-17-2024 Ambulatory Visit Summary Ambulatory Visit Summary SINAI LOCKWOOD :1995 Visit Date:03/17/2024 Ambulatory Visit Instructions Your Diagnosis COVID-19 Non-smoker Sore throat Your Care Team Attending Physician - Pepe Alegria PA-C Primary Care Physician - IVET LAWLER This Is Your Medications List brompheniramine/dextrom ethorphan/PSE (brompheniramine/dextro methorphan/PSE 2 mg-10 mg-30 mg/5 mL oral syrup) fluticasone nasal (Flonase 0.05 mg/inh [place]) Contact prescribing physician if questions or concerns moxifloxacin (moxifloxacin 400 mg Tab) Procedures Performed Cystoscopy (12/02/2021), Cystourethroscopy with dilation of urethral stricture (07/24/2020), Cystoscopy (2019), History of tonsillectomy, Hysterectomy, Laparoscope, Laser uterosacral nerve ablation, AUDI - Laser uterosacral nerve ablation. Discharge Vitals Temperature (Oral) 37.0 ?C Heart Rate (Peripheral) 85 Blood Pressure 108/76 Height 62 in Height 158 cm Weight 122.1 lb Weight 55.5 kg BMI 22.23 What to do next You Need to Schedule the Following Appointments Follow Up with LOGAN GERMAN, ZACKARY COONEY When: Medications What How Much When Why Instructions New brompheniramine/ dextromethorphan/ PSE (brompheniramine/ dextromethorphan/ PSE 2 mg-10 mg-30 mg/ 5 mL oral syrup) 5 Milliliter By Mouth Every 6 hours as needed for for cold symptoms COVID-19 Duration: 5 Days Pickup at [facility] New fluticasone nasal (Flonase 0.05 mg/ inh [place]) 1 Sprays Nasal Inhalation 2 times a day COVID-19 Duration: 7 Days each nostril Pickup at [facility] Unchanged moxifloxacin (moxifloxacin 400 mg Tab) 1 Tablets By Mouth Every day Duration: 7 Days Contact prescribing physician if questions or concerns Pharmacy Information [facility]: [address] [place], [place] [id number] [phone] Allergies Latex (Hives) penicillin (Hives) Problems Ongoing - Any problem that you are currently receiving treatment for. Adverse reaction to COVID-19 vaccine Arm skin lesion, right Asymptomatic microscopic hematuria BMI 23.0-23.9, adult BV (bacterial vaginosis) Endometriosis Incomplete bladder emptying Interstitial cystitis Musculoskeletal disorder involving upper trapezius muscle Myofascial muscle pain Non-smoker Non-tobacco user OAB (overactive bladder) Pelvic floor dysfunction Rectal bleeding Sinusitis Vaginal yeast infection Vomiting Historical - Any problem that you are no longer receiving treatment for. Endometriosis Seizure Patient Survey You may receive a survey via text or e-mail asking about your office visit. Please share your experience with us by completing your survey. We appreciate your feedback and thank you for choosing us for your care. Education Materials COVID-19 COVID-19 is an infection caused by a virus called SARS-CoV-2. This type of virus is called a coronavirus. People with COVID-19 may: ? Have little to no symptoms. ? Have mild to moderate symptoms that affect their lungs and breathing. ? Get very sick. What are the causes? COVID-19 is caused by a virus. This virus may be in the air as droplets or on surfaces. It can spread from an infected person when they cough, sneeze, speak, sing, or breathe. You may become infected if: ? You breathe in the infected droplets in the air. ? You touch an object that has the virus on it. What increases the risk? You are at risk of getting COVID-19 if you have been around someone with the infection. You may be more likely to get very sick if: ? You are 65 years old or older. ? You have certain medical conditions, such as: ? Heart disease. ? Diabetes. ? Chronic respiratory disease. ? Cancer. ? . ? You are immunocompromised. This means your body cannot fight infections easily. ? You have a disability or trouble moving, meaning you're immobile. What are the signs or symptoms? People may have different symptoms from COVID-19. The symptoms can also be mild to severe. They often show up in 5?6 days after being infected. But they can take up to 14 days to appear. Common symptoms are: ? Cough. ? Feeling tired. ? New loss of taste or smell. ? Fever. Less common symptoms are: ? Sore throat. ? Headache. ? Body or muscle aches. ? Diarrhea. ? A skin rash or odd-colored fingers or toes. ? Red or irritated eyes. Sometimes, COVID-19 does not cause symptoms. How is this diagnosed? COVID-19 can be diagnosed with tests done in the lab or at home. Fluid from your nose, mouth, or lungs will be used to check for the virus. How is this treated? Treatment for COVID-19 depends on how sick you are. ? Mild symptoms can be treated at home with rest, fluids, and jurm-hyz-fzryayz medicines. ? Severe symptoms may be treated in a hospital intensive care unit (ICU). If you (more content not included)... Normal [facility] Letter [facility] [address] [place] [phone] March 17, 2024 SINAI GILES [address] [place] [address] : 1995 Please excuse SINAI LOCKWOOD from work . Date and/or Time of Absence: From: 03/17/24 To: 03/20/24 May return to work on: 03/20/24 Restrictions: Patient may return to the office if needed on March 20 however encouraged to mask for an additional 5 days. Comments: Please excuse due to an acute illness. Provider Signature: Pepe Alegria PA-C Physician [employer] [facility] [address] [place] [place] [address] Normal [facility] URINALYSISOrdered By: Suzanne Jordan on 06-16-2022 Bacteria LM Ql (Urine sed) Trace /HPF Normal Trace/HPF [facility] UA Auto SS Bilirubin Ql (U) Negative (06/16/22 8:21 AM) Normal Negative [facility] UA Auto SS Clarity (U) Cloudy *ABN* (06/16/22 8:21 AM) Invalid Interpretation Code Clear [facility] UA Auto SS Color (U) Yellow (06/16/22 8:21 AM) Normal Yellow [facility] UA Auto SS Crystals LM Ql (Urine sed) Present (06/16/22 8:21 AM) Normal [facility] UA Auto SS Epithelial cells.squamous LM.HPF (Urine sed) [#/Area] 5-8 /HPF Normal 0-2/HPF [facility] UA Aut o SS Glucose Test strip (U) [Mass/Vol] Negative (06/16/22 8:21 AM) Normal Negative [facility] UA Auto SS Hemoglobin Ql (U) Negative (06/16/22 8:21 AM) Normal Negative [facility] UA Auto SS Ketones (U) [Mass/Vol] Negative (06/16/22 8:21 AM) Normal Negative [facility] UA Auto SS [place].plasma/Lithiu m.RBC (Bld) [Mass ratio] 0-3 /HPF Normal 0-3/HPF [facility] UA Auto SS Mucus Ql (Urine sed) 2+ (06/16/22 8:21 AM) Normal [facility] Auto SS Nitrite Ql (U) Negative (06/16/22 8:21 AM) Normal Negative [facility] UA Auto SS pH (U) 6.0 *NA* (06/16/22 8:21 AM) Invalid Interpretation Code 5.0 - 9.0 [facility] Auto SS Protein (U) [Mass/Vol] Negative (06/16/22 8:21 AM) Normal Negative [facility] UA Auto SS Specific gravity (U) [Rel density] >=1.030 *NA* (06/16/22 8:21 AM) Invalid Interpretation Code 1.005 - 1.030 [facility] UA Auto SS UA Spec Desc Clean Catch (06/16/22 8:21 AM) Normal [facility] UA Auto SS Urobilinogen Qn (U) [id number] {Pierre'U}/dL Normal 0.0 - 1.0 EU/dL [facility] UA Auto SS WBC Auto Ql (U) Negative (06/16/22 8:21 AM) Normal Negative [facility] UA Auto SS WBC LM.HPF (Urine sed) [#/Area] 0-5 /HPF Normal 0-5/HPF [facility] UA Auto SS CHEMISTRYOrdered By: SYSTEM SYSTEM on 11-25-2021 Anion gap [Moles/Vol] 10 mmol/L Normal 6 - 16 mEq/L F [facility] Remisol Calcium [Mass/Vol] 8.9 mg/dL Normal 8.9 - 11. 1 mg/dL [facility] Remisol Chloride [Moles/Vol] 101 mmol/L Normal 101 - 1 11 mmol/L [facility] Remisol CO2 [Moles/Vol] 27 mmol/L Normal 21 - 31 mmol/L [facility] Remisol Creatinine [Mass/Vol] 0.8 mg/dL Normal 0.5 - 1.3 mg/dL [facility] Remisol GFR/1.73 sq M.predicted among blacks MDRD (S/P/Bld) [Vol rate/Area] mL/min/1.73 m2 Normal >=59mL/min/1. 73 m2 [facility] Chem S GFR/1.73 sq M.predicted among non-blacks MDRD (S/P/Bld) [Vol rate/Area] mL/min/1.73 m2 Normal >=59mL/min/1. 73 m2 [facility] Chem S Glucose [Mass/Vol] 82 mg/dL Normal 55 - 199 mg/dL [facility] Remisol Potassium [Moles/Vol] 3.4 mmol/L Low 3.5 - 5.3 mmol/L [facility] Remisol Sodium [Moles/Vol] 135 mmol/L Normal 135 - 145 mmol/L [facility] Remisol Urea nitrogen [Mass/Vol] 22 mg/dL High 5 - 21 mg/dL [facility] Remisol Urea nitrogen/Creatinine [Mass ratio] 28 mg/mg High 10 - 20 [facility] Remisol COAGULATIONOrdered By: Nayan Flannery on 11-25-2021 aPTT Coag (PPP) [Time] 29.0 s Normal 25.1 - 36.5 second(s) [facility] Auto Coag INR Coag (PPP) [Relative time] 1.0 {INR} Invalid Interpretation Code [facility] Auto Coag PT Coag (PPP) [Time] 12.2 s Normal 10.2 - 12.9 second(s) [facility] Auto Coag HEMATOLOGYOrdered By: SYSTEM SYSTEM on 11-25-2021 Basophils/100 WBC (Bld) 0.1 % Normal 0.0 - 2.0 % [facility] HemeAutoSS Basophils/Leukocytes Auto (Bld) [Pure # fraction] 0.0 E9/L Normal 0.0 - 0.2 E9/L [facility] HemeAutoSS Eosinophils/100 WBC (Bld) 2.1 % Normal 0.0 - 8.0 % [facility] HemeAutoSS Eosinophils/Leukocyte s Auto (Bld) [Pure # fraction] 0.2 E9/L Normal 0.0 - 0.5 E9/L [facility] HemeAutoSS Lymphocytes/100 WBC (Bld) 31.0 % Normal 14.0 - 50.0 % [facility] HemeAutoSS Lymphocytes/Leukocyte s Auto (Bld) [Pure # fraction] 2.6 E9/L Normal 1.0 - 4.0 E9/L [facility] HemeAutoSS Monocytes/100 WBC (Bld) 6.8 % Normal 4.0 - 14.0 % [facility] HemeAutoSS Monocytes/Leukocytes Auto (Bld) [Pure # fraction] 0.6 E9/L Normal 0.2 - 1.0 E9/L [facility] HemeAutoSS Neutrophils/100 WBC (Bld) 60.0 % Normal 36.0 - 75.0 % [facility] HemeAutoSS Neutrophils/Leukocyte s Auto (Bld) [Pure # fraction] 5.0 E9/L Normal 2.0 - 7.5 E9/L FT HemeAutoSS HEMATOLOGYOrdered By: Ignacia velazquez on 11-25-2021 Erythrocyte distribution width (RBC) [Ratio] 13.2 % Normal 10.9 - 14.2 % [facility] HemeAutoSS Hematocrit (Bld) [Volume fraction] 42.8 % Normal 34.0 - 46.0 % [facility] HemeAutoSS Hemoglobin (Bld) [Mass/Vol] 14.3 g/dL Normal 12.0 - 16.0 gm/dL [facility] HemeAutoSS MCH (RBC) [Entitic mass] 29.4 pg Normal 27.0 - 34.0 pg [facility] HemeAutoSS MCHC (RBC) [Mass/Vol] 33.4 g/dL Normal 31.4 - 36.0 gm/dL [facility] HemeAutoSS MCV (RBC) [Entitic vol] 88.2 fL Normal 80.0 - 100.0 fL [facility] HemeAutoSS Platelet mean volume (Bld) [Entitic vol] 8.9 fL Normal 6.4 - 10.8 fL [facility] HemeAutoSS Platelets (Bld) [#/Vol] 250.0 E9/L Normal 150.0 - 500.0 E9/L [facility] HemeAutoSS RBC (Bld) [#/Vol] 4.9 E12/L Normal 4.3 - 5.9 E12/L [facility] HemeAutoSS WBC corrected for nucl RBC Auto (Bld) [#/Vol] 8.4 E9/L Normal 4.0 - 11.0 E9/L [facility] HemeAutoSS URINALYSISOrdered By: Shashi Flannery on 11-25-2021 Bacteria LM Ql (Urine sed) Trace /HPF Normal Trace/HPF [facility] UA Auto SS Bilirubin Ql (U) Negative (11/25/21 3:04 PM) Normal Negative [facility] UA Auto SS Clarity (U) Clear (11/25/21 3:04 PM) Normal Clear [facility] UA Auto SS Color (U) Yellow (11/25/21 3:04 PM) Normal Yellow [facility] UA Auto SS Epithelial cells.squamous LM.HPF (Urine sed) [#/Area] 0-2 /HPF Normal 0-2/HPF [facility] UA Aut o SS Glucose Test strip (U) [Mass/Vol] Negative (11/25/21 3:04 PM) Normal Negative [facility] UA Auto SS Hemoglobin Ql (U) Negative (11/25/21 3:04 PM) Normal Negative [facility] UA Auto SS Ketones (U) [Mass/Vol] Negative (11/25/21 3:04 PM) Normal Negative [facility] UA Auto SS [place].plasma/Lithiu m.RBC (Bld) [Mass ratio] 0-3 /HPF Normal 0-3/HPF [facility] UA Auto SS Mucus Ql (Urine sed) Trace (11/25/21 3:04 PM) Normal [facility] UA Auto SS Nitrite Ql (U) Negative (11/25/21 3:04 PM) Normal Negative [facility] UA Auto SS pH (U) 6.0 *NA* (11/25/21 3:04 PM) Invalid Interpretation Code 5.0 - 9.0 [facility] UA Auto SS Protein (U) [Mass/Vol] Negative (11/25/21 3:04 PM) Normal Negative [facility] UA Auto SS Specific gravity (U) [Rel density] 1.020 *NA* (11/25/21 3:04 PM) Invalid Interpretation Code 1.005 - 1.030 [facility] UA Auto SS UA Spec Desc Clean Catch (11/25/21 3:04 PM) Normal [facility] UA Auto SS Urobilinogen Qn (U) 0.6282358 {Pierre'U}/dL Normal 0.0 - 1.0 EU/dL [facility] UA Auto SS WBC Auto Ql (U) Negative (11/25/21 3:04 PM) Normal Negative [facility] UA Auto SS WBC LM.HPF (Urine sed) [#/Area] 0-5 /HPF Normal 0-5/HPF [facility] UA Auto SS MR LUMBAR SPINE WITHOUT CONT [facility] 06-24-2021 MR LUMBAR SPINE WITHOUT CONTRAST EXAMINATION: MR LUMBAR SPINE WITHOUT CONTRAST HISTORY: Ilioinguinal neuralgia, 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 COMPARISON: None. FINDINGS: Mild degenerative disc signal at the L5-S1 level. The vertebral bodies and disc spaces are otherwise normal in height and alignment. The marrow signal is normal. The conus lies at L1 and is normal in appearance. The neural foramina are patent. L5-S1: Central disc protrusion without thecal sac compression. L4-5: Normal. L3-4: Normal. L2-3: Normal. The vertebral bodies and disc spaces are otherwise normal in appearance. IMPRESSION: Central disc protrusion at the L5-S1 level without thecal sac or nerve root compression. No evidence of stenosis. [facility] Workstation ID: [id number] Dictated by: Amber SILVER on WedJun 25, 2021 10:29:04 AM EST Transcribed by: EDEN MUSE on WedJun 25, 2021 10:56:26 AM EST Finalized by: Amber SILVER on WedJun 25, 2021 2:55:19 PM EST Normal [facility] Comment on above: Order Comment: PT/FX Injury/Trauma or Illness?:Illness/Other How long have you had these symptoms (acute/chronic)?:Chronic Reason for exam?:back pain with pain AND numbness down Rt. leg x 3 years Type of Exam?:Initial Additional signs and symptoms?:na COVID-19, MOLECULARon 2020 SARS-CoV-2 (COVID-19) RNA MAVERICK+probe Ql (Unsp spec) Not detected Normal Not Detected [facility] Comment on above: Result Comment: This test was performed under the FDA's Emergency Use Authorization (EUA). Testing was performed using the Blair SARS-CoV-2 RT-PCR assay on the Jose Blair 6800 System. This test has not been approved for use in asymptomatic patients and its performance in this patient population has not been evaluated. Negative results do not rule out the presence of SARS-CoV-2/COVID-19. Fact sheets for this EUA can be found at the following links: For Healthcare Providers: https://www.fda.gov/media/230268/download For Patients: https://www.fda.gov/media/955017/download Performed By: #### L [id number] #### [facility] [address] [place] [address] Rayshawn Dao M.D. [id number] VAGINITIS DNA PROBESOrdered By: Sangeetha Juarez on 02-13-2021 Daisy sp DNA Probe+sig amp Ql (Vag fld) Negative Negative [facility] G. vaginalis DNA Probe+sig amp Ql (Vag fld) Negative Negative [facility] Interpretation and review of laboratory results Normal [facility] T. vaginalis DNA Probe+sig amp Ql (Vag fld) Negative Negative [facility] OPERATIVE REPORTon OPERATIVE REPORT [address] [address] OPERATIVE REPORT PATIENT NAME: SINAI TANNER : 1995 MED REC NO: [id number] ROOM: ACCOUNT NO: [id number] ADMIT DATE: 07/24/2020 PROVIDER: Bryce Camarillo DATE OF PROCEDURE: 07/24/2020 INDICATION FOR SURGERY: Dysuria, bladder pain, urethral pain, urgency, frequency. PREOPERATIVE DIAGNOSES: Dysuria, bladder pain, urethral pain, urgency, frequency, suspicious for interstitial cystitis, history of hemorrhagic cystitis. POSTOPERATIVE DIAGNOSES: Interstitial cystitis with glomerulations greater than 10 per four quadrants, microhematuria, mild mid-urethral stricture. PROCEDURES: Cystourethroscopy with dilatation of mild mid-urethral stricture, hydrodistention, and DMSO instillation. SURGEON: Bryce Camarillo DO [employer] TECHNICIAN: Dianne Crespo DO ANESTHESIA: General endotracheal. FINDINGS: As above. SPECIMENS: None. COMPLICATIONS: None. BLOOD LOSS: Negligible. COURSE: Prior to the procedure, risks and benefits of the procedure were explained to the patient. The patient understood and signed informed consent under no duress or confusion. Her test and COVID tests were negative. The patient was taken back to the OR and prepped and draped in sterile fashion in the dorsal lithotomy position under general anesthesia. The urethra was dilated and calibrated through a 17-Slovak 30-degree cystourethroscope to accept it within the confines of the urethra and bladder. The urethra, trigone, and bladder were without tumor, stones, infection, diverticula, trabeculations, fistula; but there was mild hyperemia of the bladder, inside which was suspicious for interstitial cystitis. Ureters were patent and effluxed urine well. There were no other signs of pathology with the [place], [place], and urethral glands. No masses, no prolapse or anything gynecologic. Hydrodistention to 300 mL before leakage around the cystoscopy was gained, she did not hold that much more. This was able to be held for 5 minutes, and then the bladder was drained. This was instilled at 80 cm of water pressure. On refilling the bladder, the bladder had marked hyperemia with greater than 10 glomerulations per four quadrants. A mixture of 50 mg of DMSO, 40 mg of Kenalog, 10 mL of 1% lidocaine plain, 25 mg of bicarb, and 5000 units of heparin was mixed and instilled into the bladder to be held for 30 minutes. The patient tolerated the procedure well and went to Recovery in order to void before she goes home. She will follow up in one week to go over an interstitial cystitis plan, including dietary modifications as well as an antihistamine, anticholinergic, and possible DMSO versus Elmiron therapy as an outpatient. BRYCE CAMARLILO /Maddy_LATANYA_T Doc#: [id number] CC: Bryce Camarillo Normal [facility] POCT urine pregnancyon 07-24 Beta HCG ( test) Ql (U) Negative NEGATIVE [place], [place] Comment on above: Specimens with hCG l evels near the threshold of the test (25 mIU/mL) may give a negative or indeterminate result. In such cases, another test should be performed with a new specimen in 48-72 hours. If early is suspected clinically in this setting, correlation with quantitative serum b-hCG level is suggested. TESTING PERFORMED AT [address] [address] [facility] 07-23-2020 Erythrocyte distribution width (RBC) [Ratio] 12.4 % Normal 11.8-14.4 [facility] Comment on above: Performed By: #### C BC #### [facility] [employer] [address] [place] [address] [employer] Se[employer] Assembler: Agustín Arreaga MD Hematocrit (Bld) [Volume fraction] 45.1 % Normal 36.3-47.1 [facility] Comment on above: Performed By: #### C BC #### [address] [address] [employer] As[employer]er: Agustín Arreaga MD Hemoglobin (Bld) [Mass/Vol] 14.8 g/dL Normal 11.9-15.1 [facility] Comment on above: Performed By: #### C BC #### [address] [address] [employer] As[employer]er: Agustín Arreaga MD MCH (RBC) [Entitic mass] 30.5 pg Normal 25.2-33.5 [facility] Comment on above: Performed By: #### C BC #### [address] [address] [employer] As[employer]er: Agustín Arreaga MD MCHC (RBC) [Mass/Vol] 32.8 g/dL Normal 28.4-34.8 [facility] Comment on above: Performed By: #### C BC #### [address] [address] [employer] As[employer]er: Agustín Arreaga MD MCV (RBC) [Entitic vol] 93.0 fL Normal 82.6-102.9 [facility] Comment on above: Performed By: #### C BC #### [address] [address] [employer] As[employer]er: Agustín Arreaga MD NRBC Automated 0.0 per 100 WBC Normal 0.0 [facility] Comment on above: Performed By: #### C BC #### [address] [address] [employer] As[employer]er: Agustín Arreaga MD Platelet mean volume (Bld) [Entitic vol] 11.2 fL Normal 8.1-13.5 [facility] Comment on above: Performed By: #### C BC #### [address] [address] [employer] As[employer]er: Agustín Arreaga MD Platelets (Bld) [#/Vol] 271 10*3/uL Normal 138-453 [facility] Comment on above: Performed By: #### C BC #### [facility] [employer] [address] [place], [place] [id number] [employer] As[employer]er: Agustín Arreaga MD RBC (Bld) [#/Vol] 4.85 10*6/uL Normal 3.95-5.11 [facility] Comment on above: Performed By: #### C BC #### [place] [id number] [place], [place] [id number] [employer]er: Agustín Arreaga MD WBC (Bld) [#/Vol] 9.8 10*3/uL Normal 3.5-11.3 [facility] [facility] Comment on above: Performed By: #### C BC #### [facility] [employer] [address] [place] [address] [id number] Oil Seal Assembler: Agustín Arreaga MD Erythrocyte distribution width (RBC) [Ratio] 12.4 % 11.8 - 14.4 % [place] Hematocrit (Bld) [Volume fraction] 45.1 % 36.3 - 47.1 % [place] Hemoglobin (Bld) [Mass/Vol] 14.8 g/dL 11.9 - 15.1 g/dL [place] MCH (RBC) [Entitic mass] 30.5 pg 25.2 - 33.5 pg [place] MCHC (RBC) [Mass/Vol] 32.8 g/dL 28.4 - 34.8 g/dL [place] MCV (RBC) [Entitic vol] 93.0 fL 82.6 - 102.9 fL [place] Platelet mean volume (Bld) [Entitic vol] 11.2 fL 8.1 - 13.5 fL [place] Platelets (Bld) [#/Vol] 271 10*3/uL [place] RBC (Bld) [#/Vol] 4.85 10*6/uL 3.95 - 5.1 1 m/uL [place] WBC (Bld) [#/Vol] 9.8 10*3/uL [place] WBC (Bld) [#/Vol] 0.0 10*3/uL 0.0 per 10 0 WBC [place] [id number] 07-21-2020 SARS-CoV-2 Normal [facility] Comment on above: Performed By: #### C OVID #### [facility] [address] [place], [place] [id number] Oil Seal Assembler: Teddy Mendez MD [id number] [place], [place] [address]2008 Oil Seal Assembler: Agustín Arreaga MD SARS-CoV-2 Not Detected Normal NOTDET [facility] Comment on above: Result Comment: The specimen is NEGATIVE for SARS-CoV-2, the novel coronavirus associated with COVID-19. A negative result does not rule out COVID-19. Blair SARS-CoV-2 for use on the Blair [employer] is a real-time RT-PCR test intended for the qualitative detection of nucleic acids from SARS-CoV-2 in clinician-collected nasal, nasopharyngeal, and oropharyngeal swab specimens from individuals who meet COVID-19 clinical and/or epidemiological criteria. Blair SARS-CoV-2 is for use only under Emergency Use Authorization (EUA) in laboratories certified under Clinical Laboratory Improvement Amendments of 1988 (CLIA), 42 U.S.C. ?263a, that meet requirements to perform high or moderate complexity tests. An individual without symptoms of COVID-19 and who is not shedding SARS-CoV-2 virus would expect to have a negative (not detected) result in this assay. Fact sheet for Healthcare Providers: https://www.fda.gov/media/991604/download Fact sheet for Patients: https://www.fda.gov/media/721210/download METHODOLOGY: RT-PCR Performed By: #### C OVID #### [facility] [address] [place] [address] Oil Seal Assembler: Teddy Mendez MD [facility] [address] [place] [address] Oil Seal Assembler: Agustín Arreaga MD SARS-CoV-2,Rapid Normal [facility] Comment on above: Performed By: #### C OVID #### [facility] [address] [place] [address] Oil Seal Assembler: Teddy Mendez MD [facility] [address] [place] [address] Oil Seal Assembler: Agustín Arreaga MD [id number] 07-20-2020 SARS-CoV-2 Source .NASOPHARYNGEAL SWAB Normal [facility] Comment on above: Performed By: #### C OVID #### [facility] [address] [place] [address] [employer] Se[employer] Assembler: Teddy Mendez MD [facility] [address] [place] [address] Oil Seal Assembler: Agustín Arreaga MD HCG, ,Urineon 04-16 Beta HCG ( test) Ql (U) Negative Normal NEG [facility] Comment on above: Result Comment: Spec imens with hCG levels near the threshold of the test (25 mIU/mL) may give a negative or indeterminate result. In such cases, another test should be performed with a new specimen in 48-72 hours. If early is suspected clinically in this setting, correlation with quantitative serum b-hCG level is suggested. [facility] has confirmed the use of plasma for this test. This has not been cleared or approved by the U.S. Food and Drug Administration. The FDA has determined that such clearance is not necessary. Performed By: #### [facility], [facility] #### [facility] [address] [place] [address] Oil Seal Assembler: Alvarez Link MD Microscopic Urinalysison Amorphous, UA NOT REPORTED None [facility], [place] Bacteria, UA TRACE Abnormal None [place] Casts UA NOT REPORTED /LPF [place] Crystals UA NOT REPORTED None /HPF [place] Epithelial Cells UA 0 TO 2 [place] Interpretation and review of laboratory results Abnormal [place] Mucus, UA NOT REPORTED None [place] Other Observations UA NOT REPORTED NOT REQ. [place] RBC (U) [#/Vol] 0 TO 2 [place] Renal Epithelial, Urine NOT REPORTED 0 /HPF [place] Trichomonas, UA NOT REPORTED None [place] WBC, UA 0 TO 2 [place] Yeast, UA NOT REPORTED None [place] , Urineon 9 Beta HCG ( test) Ql (U) Negative NEGATIVE [place] Comment on above: Specimens with hCG l evels near the threshold of the test (25 mIU/mL) may give a negative or indeterminate result. In such cases, another test should be performed with a new specimen in 48-72 hours. If early is suspected clinically in this setting, correlation with quantitative serum b-hCG level is suggested. [facility] has confirmed the use of plasma for this test. This has not been cleared or approved by the U.S. Food and Drug Administration. The FDA has determined that such clearance is not necessary. UA w/Reflex Cultureon 2018 Acetoacetic Acid,Ur Negative Normal NEG [facility] Comment on above: Performed By: #### U [facility] #### [facility] [address] [place] [address] Oil Se[employer] Assembler: Alvarez Link MD Bilirubin, SemiQt,Ur Negative Normal NEG [facility] Comment on above: Performed By: #### U [facility] #### [facility] [address] [place] [address] Oil [employer] Assembler: Alvarez Link MD Color (U) YELLOW Normal YEL [facility] Comment on above: Performed By: #### U [facility] UHCG #### [facility] [address] [place], [place] [phone] Oil [employer] Assembler: Alvarez Link MD Glucose Ql (U) Negative Normal NEG [facility] Comment on above: Performed By: #### U AMIC, UHCG #### [facility] [address] [place], [place] [phone] Oil [employer] Assembler: Alvarez Link MD Hemoglobin, Ur Negative Normal NEG [facility] Comment on above: Performed By: #### U AMIC, UHCG #### [facility] [address] [place], [place] [phone] Oil Se[employer] Assembler: Alvarez Link MD Leukocyte esterase Test strip Ql (U) Negative Normal NEG [facility] Comment on above: Performed By: #### U AMIC, CG #### [facility] [address] [place], [place] [phone] Oil [employer] Assembler: Alvarez Link MD Nitrite,Ur Negative Normal [facility] Comment on above: Performed By: #### U AMIC, CG #### [facility] [address] [place], [place] [phone] Oil [employer] Assembler: Alvarez Link MD pH (U) 7.5 [pH] Normal 5.0-9.0 [facility] Comment on above: Performed By: #### U AMIC, CG #### [facility] [address] [place], [place] [phone] Oil [employer] Assembler: Alvarez Link MD Protein Ql (U) Negative Normal NEG [facility] Comment on above: Performed By: #### U AMIC, UHCG #### [facility] [address] [place], [place] [phone] Oil Se[employer] Assembler: Alvarez Link MD Specific gravity (U) [Rel density] 1.020 Normal 1.010-1.020 [facility] Comment on above: Performed By: #### U AMIC, UHCG #### [facility] [address] [place] [address] Oil Se[employer] Assembler: Alvarez Link MD Turbidity CLEAR Normal CLEAR [facility] Comment on above: Performed By: #### U AMIC, UHCG #### [facility] [address] [place] [address] Oil Seal Assembler: Alvarez Link MD Urobilinogen,Ur Normal Normal NORM [facility] Comment on above: Performed By: #### U AMIC, [facility] #### [facility] [address] [place] [address] Oil Seal Assembler: Alvarez Link MD Comment NOT REPORTED Normal [facility] Comment on above: Performed By: #### U [facility], [facility] #### [facility] [address] [place] [address] Oil Seal Assembler: Alvarez Link MD Urinalysis Reflex to Culture on 04-16-2019 Bilirubin Urine Negative NEGATIVE [facility] [place] Color, UA YELLOW YELLOW [facility] [place] Glucose, Ur Negative NEGATIVE [facility] [place] Ketones Ql (U) Negative NEGATIVE [facility] [place] Leukocyte esterase Test strip Ql (U) Negative NEGATIVE [facility] [place] Nitrite, Urine Negative NEGATIVE [facility] [place] pH, UA 7.5 [facility] [place] Protein (U) [Mass/Vol] Negative NEGATIVE [facility] [place] Specific [place], UA 1.020 [facility] [place] Turbidity UA CLEAR CLEAR [facility] [place] Urinalysis Comments NOT REPORTED [facility] [place] Urine Hgb Negative NEGATIVE [facility] [place] Urobilinogen, Urine Normal Normal [facility] [place] Urinalysis,Microon 9 ----- Normal [facility] Comment on above: Performed By: #### U AMIC, CG #### [facility] [address] [place] [address] Oil Se[employer] Assembler: Alvarez Link MD Bacteria LM.HPF (Urine sed) [#/Area] TRACE Abnormal NONE [facility] Comment on above: Performed By: #### U AMIC, UHCG #### [facility] [address] [place], [place] [phone] Oil Se[employer] Assembler: Alvarez Link MD Epithelial cells LM.HPF (Urine sed) [#/Area] 0 TO 2 Normal 0-25 [facility] Comment on above: Performed By: #### U AMIC, UHCG #### [facility] [address] [place], [place] [phone] Oil Seal Assembler: Alvarez Link MD RBC (U) [#/Vol] 0 TO 2 Normal 0-2 [facility] Comment on above: Performed By: #### U AMIC, CG #### [facility] [address] [place] [address] [place]. [place], [place] [phone] Oil Se[employer] Assembler: Alvarez Link MD WBC (U) [#/Vol] 0 TO 2 Normal 0-5 [facility] Comment on above: Performed By: #### U AMIC, [facility] #### [address] [place], [place] [address]1783 Oil Se[employer] Assembler: Alvarez Link MD Amorphous sediment LM Ql (Urine sed) NOT REPORTED Normal [facility] Comment on above: Performed By: #### U AMIC, UHCG #### [facility] [address] [place] [address] [place] [place], [place] [address]83 Oil Seal Assembler: Alvarez Link MD Casts LM.LPF (Urine sed) [#/Area] NOT REPORTED Normal [facility] Comment on above: Performed By: #### U AMIC, UHCG #### [address] [place] [address] Oil Seal Assembler: Alvarez Link MD Crystals LM Nom (Urine sed) NOT REPORTED Normal [facility] Comment on above: Performed By: #### U AMIC, UHCG #### [facility] [address] [place], [place] [phone] Oil Se[employer] Assembler: Alvarez Link MD Epithelial, Renal NOT REPORTED Normal 0 [facility] Comment on above: Performed By: #### U AMIC, UHCG #### [facility] [address] [place], [place] [phone] Oil Se[employer] Assembler: Alvarez Link MD Mucus Strands NOT REPORTED Normal NONE [facility] Comment on above: Performed By: #### U AMIC, UHCG #### [facility] [address] [place], [place] [phone] Oil Se[employer] Assembler: Alvarez Link MD Other Observations NOT REPORTED Normal NREQ [facility] Comment on above: Performed By: #### U AMIC, UHCG #### [facility] [address] [place], [place] [phone] Oil Seal Assembler: Alvarez Link MD Trichomonas NOT REPORTED Normal NONE [facility] Comment on above: Performed By: #### U AMIC, CG #### [facility] [address] [place], [place] [phone] Oil [employer]er: Alvarez Link MD Yeast LM Ql (Urine sed) NOT REPORTED Normal [facility] Comment on above: Performed By: #### U AMIC, CG #### [facility] [address] [place], [place] 6972383 Oil Se[employer] Assembler: Alvarez Link MD Cult, Blood 04-12-2019 Cult, Blood Specimen Description .BLOOD Special Requests RT HAND, 4 MLS Culture NO GROWTH 5 DAYS Report Status FINAL 04/12/2019 Normal [facility] Comment on above: Performed By: #### U AMIC, UHCG #### [facility] [address] [place], [place] [phone] Oil Seal Assembler: Alvarez Link MD Cult,Bloodon 04-12-2019 Cult,Blood Specimen Description .BLOOD Special Requests LHAND, 4 MLS Culture NO GROWTH 5 DAYS Report Status FINAL 04/12/2019 Normal [facility] Comment on above: Performed By: #### U [facility] #### [facility] [address] [place], [place] [phone] Oil Se[employer] Assembler: Alvarez Link MD Cult,Urineon 04-09-2019 Cult,Urine Specimen Description .CLEAN CATCH URINE Special Requests NOT REPORTED Culture NO GROWTH Report Status FINAL 04/08/2019 [facility] Comment on above: Performed By: #### U [facility] #### [facility] [address] [place] [phone] Oil Se[employer] Assembler: Alvarez Link MD CBCon 04-07-2019 Erythrocyte distribution width (RBC) [Ratio] 12.0 % Normal 11.8-14.4 [facility] Comment on above: Performed By: #### C P, CBC #### [facility] [address] [place] [address] [place]. [place], [place] 7691383 Oil Se[employer] Assembler: Alvarez Link MD Hematocrit (Bld) [Volume fraction] 43.5 % Normal 36.3-47.1 [facility] Comment on above: Performed By: #### C P, CBC #### [address] [place], [place] 2001683 Oil Se[employer] Assembler: Alvarez Link MD Hemoglobin (Bld) [Mass/Vol] 14.7 g/dL Normal 11.9-15.1 [facility] Comment on above: Performed By: #### C P, CBC #### [address] [place] [phone] Oil Se[employer] Assembler: Alvarez Link MD MCH (RBC) [Entitic mass] 29.9 pg Normal 25.2-33.5 [facility] Comment on above: Performed By: #### C P, CBC #### [facility] [address] [place] [phone] Oil Seal Assembler: Alvarez Link MD MCHC (RBC) [Mass/Vol] 33.8 g/dL Normal 28.4-34.8 [facility] Comment on above: Performed By: #### C P, CBC #### [facility] [address] [place] [phone] Oil Se[employer] Assembler: Alvarez Link MD MCV (RBC) [Entitic vol] 88.4 fL Normal 82.6-102.9 [facility] Comment on above: Performed By: #### C P, CBC #### [facility] [address] [place] [address] Oil Seal Assembler: Alvarez Link MD NRBC Automated 0.0 per 100 WBC Normal 0.0 [facility] Comment on above: Performed By: #### C P, CBC #### [address] [place] 629[address]83 Oil Seal Assembler: Alvarez Link MD Platelet mean volume (Bld) [Entitic vol] 10.4 fL Normal 8.1-13.5 [facility] Comment on above: Performed By: #### C P, CBC #### [address] [place], [place] 0617783 Oil Seal Assembler: Alvarez Link MD Platelets (Bld) [#/Vol] 251 10*3/uL Normal 138-453 [facility] Comment on above: Performed By: #### C P, CBC #### [facility] [address] [place], [place] [phone] Oil Seal Assembler: Alvarez Link MD RBC (Bld) [#/Vol] 4.92 10*6/uL Normal 3.95-5.11 [facility] Comment on above: Performed By: #### C P, CBC #### [facility] [address] [place], [place] [phone] Oil Seal Assembler: Alvarez Link MD WBC (Bld) [#/Vol] 7.7 10*3/uL Normal 3.5-11.3 [facility] Comment on above: Performed By: #### C P, CBC #### [facility] [address] [place] [address] Oil Seal Assembler: Alvarez Link MD Erythrocyte distribution width (RBC) [Ratio] 12.0 % 11.8 - 14.4 % [place] Hematocrit (Bld) [Volume fraction] 43.5 % 36.3 - 47.1 % [place] Hemoglobin (Bld) [Mass/Vol] 14.7 g/dL 11.9 - 15.1 g/dL [place] MCH (RBC) [Entitic mass] 29.9 pg 25.2 - 33.5 pg [place] MCHC (RBC) [Mass/Vol] 33.8 g/dL 28.4 - 34.8 g/dL [place] MCV (RBC) [Entitic vol] 88.4 fL 82.6 - 102.9 fL [place] Platelet mean volume (Bld) [Entitic vol] 10.4 fL 8.1 - 13.5 fL [place] Platelets (Bld) [#/Vol] 251 10*3/uL [place] RBC (Bld) [#/Vol] 4.92 10*6/uL 3.95 - 5.1 1 m/uL [place] WBC (Bld) [#/Vol] 0.0 10*3/uL 0.0 per 10 0 WBC [place] WBC (Bld) [#/Vol] 7.7 10*3/uL [place] ABDOMEN PELVIS WO CONTRAS Ton 04-07-2019 CT ABDOMEN PELVIS WO CONTRAST EXAMINATION: CT OF THE ABDOMEN AND PELVIS WITHOUT CONTRAST 04/07/2019 1:12 pm TECHNIQUE: CT of the abdomen and pelvis was performed without the administration of intravenous contrast. Multiplanar reformatted images are provided for review. Dose modulation, iterative reconstruction, and/or weight based adjustment of the mA/kV was utilized to reduce the radiation dose to as low as reasonably achievable. COMPARISON: None. HISTORY: ORDERING SYSTEM PROVIDED HISTORY: right flank pain, dysuria TECHNOLOGIST PROVIDED HISTORY: Is the patient ?->No FINDINGS: Lower Chest: Visualized lung bases are clear without focal airspace consolidation, sizeable effusion, or pneumothorax. No definite pulmonary nodules or masses. Base of the heart is normal in size without pericardial fluid collection. Organs: The liver, gallbladder, pancreas, and spleen are grossly within normal limits. No evidence for intrahepatic or extrahepatic biliary ductal dilatation. GI/Bowel: There is no evidence for bowel obstruction or inflammation. No free intraperitoneal air or fluid. Small bowel loops are normal in caliber. No evidence for hiatal hernia. Appendix is unremarkable. Pelvis: No evidence for free fluid. Peritoneum/Retroperiton eum: Adrenal glands are normal in size and configuration. The kidneys are normal in size without definite nephrolithiasis or hydronephrosis. The ureters run a nonobstructed course to a normal-appearing urinary bladder. Vasculature: The aorta is normal in caliber. Multiple mildly prominent mesenteric lymph nodes without discrete lymphadenopathy identified. Bones/Soft Tissues: No evidence for acute fracture or dislocation. No lytic or blastic lesions. IMPRESSION: No evidence for acute intra-abdominal or intrapelvic pathology. No bowel obstruction or inflammation. No evidence for nephrolithiasis or urinary obstruction. Normal appendix. Interpreted by: Alexandre Desouza MD Signed by: Alexandre Desouza MD 04/07/19 Final result Normal [facility] CT ABDOMEN PELVIS WO CONTRAS T Additional Contrast? Noneon 04-07-2019 EXAMINATION: CT OF T HE ABDOMEN AND PELVIS WITHOUT CONTRAST 04/07/2019 1:12 pm TECHNIQUE: CT of the abdomen and pelvis was performed without the administration of intravenous contrast. Multiplanar reformatted images are provided for review. Dose modulation, iterative reconstruction, and/or weight based adjustment of the mA/kV was utilized to reduce the radiation dose to as low as reasonably achievable. COMPARISON: None. HISTORY: ORDERING SYSTEM PROVIDED HISTORY: right flank pain, dysuria TECHNOLOGIST PROVIDED HISTORY: Is the patient ?->No FINDINGS: Lower Chest: Visualized lung bases are clear without focal airspace consolidation, sizeable effusion, or pneumothorax. No definite pulmonary nodules or masses. Base of the heart is normal in size without pericardial fluid collection. Organs: The liver, gallbladder, pancreas, and spleen are grossly within normal limits. No evidence for intrahepatic or extrahepatic biliary ductal dilatation. GI/Bowel: There is no evidence for bowel obstruction or inflammation. No free intraperitoneal air or fluid. Small bowel loops are normal in caliber. No evidence for hiatal hernia. Appendix is unremarkable. Pelvis: No evidence for free fluid. Peritoneum/Retroperiton eum: Adrenal glands are normal in size and configuration. The kidneys are normal in size without definite nephrolithiasis or hydronephrosis. The ureters run a nonobstructed course to a normal-appearing urinary bladder. Vasculature: The aorta is normal in caliber. Multiple mildly prominent mesenteric lymph nodes without discrete lymphadenopathy identified. Bones/Soft Tissues: No evidence for acute fracture or dislocation. No lytic or blastic lesions. [facility] [place] [place], [facility] Incoming Radiant Results From [employer] - 04/07/2019 1:23 PM EDT EXAMINATION: CT OF THE ABDOMEN AND PELVIS WITHOUT CONTRAST 04/07/2019 1:12 pm TECHNIQUE: CT of the abdomen and pelvis was performed without the administration of intravenous contrast. Multiplanar reformatted images are provided for review. Dose modulation, iterative reconstruction, and/or weight based adjustment of the mA/kV was utilized to reduce the radiation dose to as low as reasonably achievable. COMPARISON: None. HISTORY: ORDERING SYSTEM PROVIDED HISTORY: right flank pain, dysuria TECHNOLOGIST PROVIDED HISTORY: Is the patient ?->No FINDINGS: Lower Chest: Visualized lung bases are clear without focal airspace consolidation, sizeable effusion, or pneumothorax. No definite pulmonary nodules or masses. Base of the heart is normal in size without pericardial fluid collection. Organs: The liver, gallbladder, pancreas, and spleen are grossly within normal limits. No evidence for intrahepatic or extrahepatic biliary ductal dilatation. GI/Bowel: There is no evidence for bowel obstruction or inflammation. No free intraperitoneal air or fluid. Small bowel loops are normal in caliber. No evidence for hiatal hernia. Appendix is unremarkable. Pelvis: No evidence for free fluid. Peritoneum/Retroperiton eum: Adrenal glands are normal in size and configuration. The kidneys are normal in size without definite nephrolithiasis or hydronephrosis. The ureters run a nonobstructed course to a normal-appearing urinary bladder. Vasculature: The aorta is normal in caliber. Multiple mildly prominent mesenteric lymph nodes without discrete lymphadenopathy identified. Bones/Soft Tissues: No evidence for acute fracture or dislocation. No lytic or blastic lesions. IMPRESSION: No evidence for acute intra-abdominal or intrapelvic pathology. No bowel obstruction or inflammation. No evidence for nephrolithiasis or urinary obstruction. Normal appendix. [place] No evidence for acut e intra-abdominal or intrapelvic pathology. No bowel obstruction or inflammation. No evidence for nephrolithiasis or urinary obstruction. Normal appendix. [place] Comp Metabolic Profon 2018 (cont.) Normal [facility] Comment on above: Result Comment: Aver age GFR for 20-29 years old: 116 mL/min/1.73sq m Chronic Kidney Disease: <60 mL/min/1.73sq m Kidney failure: <15 mL/min/1.73sq m eGFR calculated using average adult body mass. Additional eGFR calculator available at: http://www.[employer]/multiple_crcl_2011.htm Performed By: #### C P, CBC #### [facility] [address] [place] [address] [employer]er: Alvarez Link MD Albumin [Mass/Vol] 4.6 g/dL Normal 3.5-5.2 [facility] Comment on above: Performed By: #### C P, CBC #### [facility] [address] [place] [address] [employer]er: Alvarez Link MD Albumin/Globulin [Mass ratio] 1.6 {ratio} Normal 1.0-2.5 [facility] Comment on above: Performed By: #### C P, CBC #### [facility] [address] [place] [address] [employer]er: Alvarez Link MD Alkaline Phos 69 U/L Normal 35-104 [facility] Comment on above: Performed By: #### C P, CBC #### [facility] [address] [place] [address] [employer]er: Alvarez Link MD ALT [Catalytic activity/Vol] 43 U/L High 5-33 [facility] Comment on above: Performed By: #### C P, CBC #### [facility] [address] [place], [place] [id number] [employer]er: Alvarez Link MD Anion gap [Moles/Vol] 15 mmol/L Normal 9-17 [facility] Comment on above: Performed By: #### C P, CBC #### [facility] [address] [place], [place] [id number] [employer]er: Alvarez Link MD AST [Catalytic activity/Vol] 27 U/L Normal <32 [facility] Comment on above: Performed By: #### C P, CBC #### [facility] [address] [place] [id number] [employer]er: Alvarez Link MD Bilirubin Ql (U) 0.73 mg/dL Normal 0.3-1.2 [facility] Comment on above: Performed By: #### C P, CBC #### [facility] [address] [place], [place] [id number] [employer]er: Alvarez Link MD BUN/CRE Ratio 13 Normal 9-20 [facility] Comment on above: Performed By: #### C P, CBC #### [facility] [address] [place], [place] [id number] [employer]er: Alvarez Link MD Calcium [Mass/Vol] 9.6 mg/dL Normal 8.6-10.4 [facility] Comment on above: Performed By: #### C P, CBC #### [facility] [address] [place], [place] [id number] [employer]er: Alvarez Link MD Chloride [Moles/Vol] 101 mmol/L Normal 98-107 [facility] Comment on above: Performed By: #### C P, CBC #### [facility] [address] [place] [address] [employer]er: Alvarez Link MD CO2 [Moles/Vol] 21 mmol/L Normal 20-31 [facility] Comment on above: Performed By: #### C P, CBC #### [facility] [address] [place] [address] [employer]er: Alvarez Link MD Creatinine [Mass/Vol] 0.78 mg/dL Normal 0.50-0.90 [facility] Comment on above: Performed By: #### C P, CBC #### [facility] [address] [place], [place] [id number] [employer]er: Alvarez Link MD GFR, Amer >60 Normal >60 [facility] Comment on above: Performed By: #### C P, CBC #### [facility] [address] [place] [address] [employer]er: Alvarez Link MD GFR,non Amer >60 Normal >60 [facility] Comment on above: Performed By: #### C P, CBC #### [facility] [address] [place], [place] [id number] [employer]er: Alvarez Link MD Glucose [Mass/Vol] 111 mg/dL High 70-99 [facility] Comment on above: Performed By: #### C P, CBC #### [facility] [address] [place], [place] [address]83 [employer]: Alvarez Link MD Potassium [Moles/Vol] 3.8 mmol/L Normal 3.7-5.3 [facility] Comment on above: Performed By: #### C P, CBC #### [facility] [address] [place], [place] [id number] [employer]er: Alvarez Link MD Protein [Mass/Vol] 7.4 g/dL Normal 6.4-8.3 [facility] Comment on above: Performed By: #### C P, CBC #### [facility] [address] [place] [address] [employer]: Alvarez Link MD Sodium [Moles/Vol] 137 mmol/L Normal 135-144 [facility] Comment on above: Performed By: #### C P, CBC #### [facility] [address] [place] [address] [employer]er: Alvarez Link MD Staging: Normal [facility] Comment on above: Result Comment: Stag e 1: Some kidney damage normal GFR Stage 2: Mild kidney damage GFR 60-89 Stage 3: Moderate kidney damage GFR 30-59 Stage 4: Severe kidney damage GFR 15-29 Stage 5: Severe kidney damage GFR <15 ESRD - chronic treatment by dialysis or transplant Performed By: #### C P, CBC #### [facility] [address] [place] [address] [employer]: Alvarez Link MD Urea nitrogen [Mass/Vol] 10 mg/dL Normal 6-20 [facility] Comment on above: Performed By: #### C P, CBC #### [facility] [address] [place] [address] [employer]er: Alvarez Link MD [facility] Metabolic [facility] 04-07-2019 Albumin [Mass/Vol] 4.6 g/dL 3.5 - 5.2 g/dL [place] Albumin/Globulin [Mass ratio] 1.6 {ratio} [place] ALP [Catalytic activity/Vol] 69 U/L 35 - 104 U/L [place] ALT [Catalytic activity/Vol] 43 U/L High 5 - 33 U/L [place] Anion gap [Moles/Vol] 15 mmol/L 9 - 17 mmol/L [place] AST [Catalytic activity/Vol] 27 U/L <32 [place] Bilirubin Ql (U) 0.73 mg/dL 0.3 - 1.2 mg/dL [place] Bun/Cre Ratio 13 [place] Calcium [Mass/Vol] 9.6 mg/dL 8.6 - 10. 4 mg/dL [place] Chloride [Moles/Vol] 101 mmol/L 98 - 10 7 mmol/L [place] CO2 [Moles/Vol] 21 mmol/L 20 - 31 mmol/L [place] Creatinine [Mass/Vol] 0.78 mg/dL 0.5 - 0.9 mg/dL [place] GFR >60 >60 mL/min [place] GFR Non- >60 >60 mL/min [place] Glucose [Mass/Vol] 111 mg/dL High 70 - 99 mg/dL [place] Interpretation and review of laboratory results Abnormal [place] Potassium [Moles/Vol] 3.8 mmol/L 3.7 - 5.3 mmol/L [place] Protein [Mass/Vol] 7.4 g/dL 6.4 - 8.3 g/dL [place] Sodium [Moles/Vol] 137 mmol/L 135 - 144 mmol/L [place] Urea nitrogen [Mass/Vol] 10 mg/dL 6 - 20 mg/dL [place] HCG, ,Urineon 04-07 Beta HCG ( test) Ql (U) Negative Normal NEG [facility] Comment on above: Result Comment: Spec imens with hCG levels near the threshold of the test (25 mIU/mL) may give a negative or indeterminate result. In such cases, another test should be performed with a new specimen in 48-72 hours. If early is suspected clinically in this setting, correlation with quantitative serum b-hCG level is suggested. [facility] has confirmed the use of plasma for this test. This has not been cleared or approved by the U.S. Food and Drug Administration. The FDA has determined that such clearance is not necessary. Performed By: #### U HCG, UMICAO, UAX #### [facility] [address] [place] [address] [employer]er: Alvarez Link MD Lactate, Sepsison 04-07-2019 Lactic Acid, Sepsis 1.0 mmol/L Normal 0.5-1.9 [facility] Comment on above: Performed By: #### L ACDS #### [facility] [address] [place] [address] [employer]: Alvarez Link MD Lactic Acid,Sep Wbld NOT REPORTED Normal 0.5-1.9 [facility] Comment on above: Performed By: #### L ACDS #### [facility] [address] [place] [address] [employer]er: Alvarez Link MD Lactic Acid, Sepsis 1.0 mmol/L 0.5 - 1. 9 mmol/L [place] Lactic Acid, Sepsis, Whole Blood NOT REPORTED 0.5 - 1.9 mmol/L [place] Metabolic Panelon 04-07-2019 GFR/1.73 sq M predicted among non-blacks MDRD (S/P/Bld) [Vol rate/Area] [place] Comment on above: Stage 1: Some kidney damage normal GFR Stage 2: Mild kidney damage GFR 60-89 Stage 3: Moderate kidney damage GFR 30-59 Stage 4: Severe kidney damage GFR 15-29 Stage 5: Severe kidney damage GFR <15 ESRD - chronic treatment by dialysis or transplant Average GFR for 20-2 9 years old: 116 mL/min/1.73sq m Chronic Kidney Disease: <60 mL/min/1.73sq m Kidney failure: <15 mL/min/1.73sq m eGFR calculated using average adult body mass. Additional eGFR calculator available at: http://www.[employer]/multiple_crcl_2012.htm Microscopic Urinalysison Amorphous, UA NOT REPORTED None [place] Bacteria, UA NOT REPORTED None [place] Casts UA NOT REPORTED /LPF [place] Crystals UA NOT REPORTED None /HPF [place] Epithelial Cells UA 0 TO 2 [place] Mucus, UA NOT REPORTED None [place] Other Observations UA NOT REPORTED NOT REQ. M [place] RBC (U) [#/Vol] 0 TO 2 [place] Renal Epithelial, Urine NOT REPORTED 0 /HPF [place] Trichomonas, UA NOT REPORTED None [place] WBC, UA 0 TO 2 [place] Yeast, UA NOT REPORTED None [place] , Urineon 9 Beta HCG ( test) Ql (U) Negative NEGATIVE [place] Comment on above: Specimens with hCG l evels near the threshold of the test (25 mIU/mL) may give a negative or indeterminate result. In such cases, another test should be performed with a new specimen in 48-72 hours. If early is suspected clinically in this setting, correlation with quantitative serum b-hCG level is suggested. [facility] has confirmed the use of plasma for this test. This has not been cleared or approved by the U.S. Food and Drug Administration. The FDA has determined that such clearance is not necessary. UA w/Reflex Cultureon 2018 Acetoacetic Acid,Ur Negative Normal NEG [facility] Comment on above: Performed By: #### U HCG, UMICAO, UAX #### [facility] [address] [place] [address] [place] [address] [employer]er: Alvarez Link MD Bilirubin, SemiQt,Ur Negative Normal NEG [facility] Comment on above: Performed By: #### U HCG, UMICAO, UAX #### [facility] [address] [place] [address] [place] [address] [employer]er: Alvarez Link MD Color (U) YELLOW Normal YEL [facility] Comment on above: Performed By: #### U HCG, UMICAO, UAX #### [facility] [address] [place] [address] [place] [address] [employer]er: Alvarez Link MD Glucose Ql (U) Negative Normal NEG [facility] Comment on above: Performed By: #### U HCG, UMICAO, UAX #### [facility] [address] [place] [address] [employer]er: Alvarez Link MD Hemoglobin, Ur Negative Normal NEG [facility] Comment on above: Performed By: #### U HCG, UMICAO, UAX #### [facility] [address] [place], [place] [id number] [employer]er: Alvarez Link MD Leukocyte esterase Test strip Ql (U) Negative Normal NEG [facility] Comment on above: Performed By: #### U HCG, UMICAO, UAX #### [facility] [address] [place], [place] [id number] [employer]er: Alvarez Link MD Nitrite,Ur Positive Abnormal NEG [facility] Comment on above: Performed By: #### U HCG, UMICAO, UAX #### [facility] [address] [place], [place] [address]83 [employer]er: Alvarez Link MD pH (U) 6.5 [pH] Normal 5.0-9.0 [facility] Comment on above: Performed By: #### U HCG, UMICAO, UAX #### [facility] [address] [place], [place] [id number] [employer]er: Alvarez Link MD Protein Ql (U) Negative Normal NEG [facility] Comment on above: Performed By: #### U HCG, UMICAO, UAX #### [facility] [address] [place], [place] 925[address]83 [employer]er: Alvarez Link MD Specific gravity (U) [Rel density] <1.005 Low 1.010-1.020 [facility] Comment on above: Performed By: #### U HCG, UMICAO, UAX #### [facility] [address] [place], [place] 506[address]83 [employer]er: Alvarez Link MD Turbidity CLEAR Normal CLEAR [facility] Comment on above: Performed By: #### U HCG, UMICAO, UAX #### [facility] [address] [place] [address] [employer]er: Alvarez Link MD Urobilinogen,Ur Normal Normal NORM [facility] Comment on above: Performed By: #### U HCG, UMICAO, UAX #### [facility] [address] [place] [address] [employer]er: Alvarez Link MD Comment NOT REPORTED Normal [facility] Comment on above: Performed By: #### U HCG, UMICAO, UAX #### [facility] [address] [place] [address] [employer]er: Alvarez Link MD Urinalysis Reflex to Culture on 04-07-2019 Bilirubin Urine Negative NEGATIVE [facility], [place] Color, UA YELLOW YELLOW [place] Glucose, Ur Negative NEGATIVE [facility], [place] Interpretation and review of laboratory results Abnormal [place] Ketones Ql (U) Negative NEGATIVE [place] Leukocyte esterase Test strip Ql (U) Negative NEGATIVE [facility] Nitrite, Urine Positive Abnormal NEGATIVE [facility], [place] pH, UA 6.5 [place] Protein (U) [Mass/Vol] Negative NEGATIVE [facility], [place] Specific [place], UA <1.005 Low [facility] [place] Turbidity UA CLEAR CLEAR [place] Urinalysis Comments NOT REPORTED [facility] [place] Urine Hgb Negative NEGATIVE [facility], [place] Urobilinogen, Urine Normal Normal [place] Urinalysis,Microon 9 ----- Normal [facility] Comment on above: Performed By: #### U HCG, UMICAO, UAX #### [facility] [address] [place] [address] [employer]er: Alvarez Link MD Epithelial cells LM.HPF (Urine sed) [#/Area] 0 TO 2 Normal 0-25 [facility] Comment on above: Performed By: #### U HCG, UMICAO, UAX #### [facility] [address] [place] [address] [employer]er: Alvarez Link MD RBC (U) [#/Vol] 0 TO 2 Normal 0-2 [facility] Comment on above: Performed By: #### U HCG, UMICAO, UAX #### [facility] [address] [place], [place] [id number] [employer]er: Alvarez Link MD WBC (U) [#/Vol] 0 TO 2 Normal 0-5 [facility] Comment on above: Performed By: #### U HCG, UMICAO, UAX #### [facility] [address] [place], [place] [id number] [employer]er: Alvarez Link MD Amorphous sediment LM Ql (Urine sed) NOT REPORTED Normal [facility] Comment on above: Performed By: #### U HCG, UMICAO, UAX #### [address] [place] [id number] [employer]er: Alvarez Link MD Bacteria LM.HPF (Urine sed) [#/Area] NOT REPORTED Normal [facility] Comment on above: Performed By: #### U HCG, UMICAO, UAX #### [address] [place] [id number] [employer]er: Alvarez Link MD Casts LM.LPF (Urine sed) [#/Area] NOT REPORTED Normal [facility] Comment on above: Performed By: #### U HCG, UMICAO, UAX #### [facility] [address] [place] [id number] [employer]er: Alvarez Link MD Crystals LM Nom (Urine sed) NOT REPORTED Normal [facility] Comment on above: Performed By: #### U HCG, UMICAO, UAX #### [facility] [address] [place], [place] [phone] [employer]er: Alvarez Link MD Epithelial, Renal NOT REPORTED Normal 0 [facility] Comment on above: Performed By: #### U HCG, UMICAO, UAX #### [facility] [address] [place], [place] 88[address]83 [employer]er: Alvarez Link MD Mucus Strands NOT REPORTED Normal [facility] Comment on above: Performed By: #### U HCG, UMICAO, UAX #### [facility] [address] [place] [address] [employer]er: Alvarez Link MD Other Observations NOT REPORTED Normal NREQ [facility] Comment on above: Performed By: #### U HCG, UMICAO, UAX #### [facility] [address] [place] [address] [employer]er: Alvarez Link MD Trichomonas NOT REPORTED Normal [facility] Comment on above: Performed By: #### U HCG, UMICAO, UAX #### [facility] [address] [place] [id number] [employer]er: Alvarez Link MD Yeast LM Ql (Urine sed) NOT REPORTED Normal [facility] Comment on above: Performed By: #### U HCG, [facility], UAX #### [facility] [address] [place], [place] [phone] [employer]er: Alvarez Link MD CBC Auto Differentialon 10-0 Basophils (Bld) [#/Vol] 10*3/uL [place] Differential Type NOT REPORTED [place] Immature granulocytes (Bld) [#/Vol] 10*3/uL [place] Interpretation and review of laboratory results Abnormal [place] Platelets (Bld) [#/Vol] NOT REPORTED [place] RBC morphology finding Nom (Bld) NOT REPORTED [place] Segmented neutrophils/100 WBC (Bld) 45 % 36 - 65 % [place] Segs Absolute 4.04 [place] WBC (Bld) [#/Vol] 0.0 10*3/uL 0.0 per 10 0 WBC [place] WBC Morphology NOT REPORTED [place] CBC with Diffon 04-05-2019 Abs. Basophil <0.03 Normal 0.00-0.20 [facility] Comment on above: Performed By: #### C DP #### [facility] [address] [place], [place] [id number] [employer]er: Alvarez Link MD Abs.Imm.Granulocyte <0.03 Normal 0.00-0.30 [facility] Comment on above: Performed By: #### C DP #### [facility] [address] [place] [address] [employer]: Alvarez Link MD Abs.Neutrophil (Seg) 4.04 k/uL Normal 1.50-8.10 [facility] Comment on above: Performed By: #### C DP #### [facility] [address] [place] [address] [employer]: Alvarez Link MD Neutrophil (Seg) 45 % Normal 36-65 [facility] Comment on above: Performed By: #### C DP #### [facility] [address] [place], [place] [phone] [employer]er: Alvarez Link MD NRBC Automated 0.0 per 100 WBC Normal 0.0 [facility] Comment on above: Performed By: #### C DP #### [facility] [address] [place] [address] [employer]: Alvarez Link MD Auto Diff Performed NOT REPORTED Normal [facility] Comment on above: Performed By: #### C DP #### [facility] [address] [place], [place] 1353883 [employer]er: Alvarez Link MD Platelets (Bld) [#/Vol] NOT REPORTED Normal [facility] Comment on above: Performed By: #### C DP #### [facility] [address] [place] [address] [employer]er: Alvarez Link MD RBC morphology finding Nom (Bld) NOT REPORTED Normal [facility] Comment on above: Performed By: #### C DP #### [facility] [address] [place] [address] [employer]er: Alvarez Link MD WBC Morphology NOT REPORTED Normal [facility] Comment on above: Performed By: #### C DP #### [facility] [address] [place], [facility]83 [employer]: Alvarez Link MD Basophils/100 WBC (Bld) 0 % Normal 0-2 [place] Comment on above: Performed By: #### C DP #### [address] [place] [id number] [employer]er: Alvarez Link MD Eosinophils (Bld) [#/Vol] 0.48 10*3/uL High 0.00-0.44 [place] Comment on above: Performed By: #### C DP #### [address] [place], [facility]83 [employer]: Alvarez Link MD Eosinophils/100 WBC (Bld) 5 % High 1-4 [place] Comment on above: Performed By: #### C DP #### [address] [place], [place] [address] [employer]er: Alvarez Link MD Erythrocyte distribution width (RBC) [Ratio] 12.0 % Normal 11.8-14.4 [place] Comment on above: Performed By: #### C DP #### [address] [place] [id number] [employer]er: Alvarez Link MD Hematocrit (Bld) [Volume fraction] 43.4 % Normal 36.3-47.1 [place] Comment on above: Performed By: #### C DP #### [address] [place] 1114583 [employer]: Alvarez Link MD Hemoglobin (Bld) [Mass/Vol] 14.7 g/dL Normal 11.9-15.1 [place] Comment on above: Performed By: #### C DP #### [facility] [address] [place] [phone] [employer]: Alvarez Link MD Immature granulocytes (Bld) [#/Vol] 0 % Normal 0 [place] Comment on above: Performed By: #### C DP #### [address] [place] [facility]83 [employer]: Alvarez Link MD Lymphocytes (Bld) [#/Vol] 3.74 10*3/uL High 1.10-3.70 [place] Comment on above: Performed By: #### C DP #### [address] [place] [facility]83 [employer]: Alvarez Link MD Lymphocytes/100 WBC (Bld) 42 % Normal 24-43 [place] Comment on above: Performed By: #### C DP #### [address] [place] [address] [employer]: Alvarez Link MD MCH (RBC) [Entitic mass] 29.8 pg Normal 25.2-33.5 [place] Comment on above: Performed By: #### C DP #### [facility] [address] [place] [facility]83 [employer]: Alvarez Link MD MCHC (RBC) [Mass/Vol] 33.9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 Pressure Location Pao Lue [facility] 09-05-2024 13:30-0500 Blood Pressure Location Pao Lue [facility] 09-05-2024 13:25-0500 Blood Pressure Location Pao Lue [facility] 09-05-2024 13:22-0500 Body temperature 98.06 [degF] Pao Lue [facility] 09-05-2024 12:09-0500 Mean blood pressure 84 mm[Hg] Pao Lue [facility] 09-05-2024 12:09-0500 Heart rate 80 /min Pao Lue [facility] 09-05-2024 12:08-0500 Respiratory rate 16 /min Pao Lue [facility] 09-05-2024 12:07-0500 Body temperature 98.06 [degF] Pao Lue [facility] 08-30-2024 15:35-0500 Diastolic blood pressure 88 mm[Hg] Pao Lue [facility] 08-30-2024 15:35-0500 Heart rate 83 /min Pao Lue [facility] 08-30-2024 15:35-0500 Mean blood pressure 103 mm[Hg] Pao Lue [facility] 08-30-2024 15:35-0500 Systolic blood pressure 132 mm[Hg] Pao Lue [facility] 08-30-2024 15:35-0500 Heart rate 81 /min Pao Lue [facility] 08-30-2024 15:35-0500 SaO2% (BldA) [Mass fraction] 100 % Pao Lue [facility] 08-30-2024 15:34-0500 Diastolic blood pressure 84 mm[Hg] Pao Lue [facility] 08-30-2024 15:34-0500 Mean blood pressure 100 mm[Hg] Pao Lue [facility] 08-30-2024 15:34-0500 Systolic blood pressure 132 mm[Hg] Pao Lue [facility] 07-27-2024 15:04-0500 Diastolic blood pressure 80 mm[Hg] Pao Lue [facility] 07-27-2024 15:04-0500 Heart rate 68 /min Pao Lue [facility] 07-27-2024 15:04-0500 Systolic blood pressure 128 mm[Hg] Pao Lue [facility] 07-18-2024 10:43-0500 Body mass index (BMI) [Ratio] 23.51 kg/m2 Pepper DELGADILLO Work Phone: [facility] 07-18-2024 10:43-0500 Body weight 56.43 kg Pepper DELGADILLO Work Phone: [facility] 07-18-2024 10:43-0500 Diastolic blood pressure 70 mm[Hg] Pepper DELGADILLO Work Phone: [facility] 07-18-2024 10:43-0500 Systolic blood pressure 102 mm[Hg] Pepper DELGADILLO Work Phone: [facility] 06-27-2024 10:01-0500 Blood Pressure Location Pepe Alegria [facility] 06-27-2024 10:01-0500 Body temperature 98.6 [degF] Pepe Vallejopsey [facility] 06-27-2024 10:01-0500 Diastolic blood pressure 80 mm[Hg] Pepe Raji [facility] 06-27-2024 10:01-0500 Heart rate 86 /min Pepe Vallejopsey [facility] 06-27-2024 10:01-0500 Respiratory rate 16 /min Pepe Vallejopsey [facility] 06-27-2024 10:01-0500 SaO2% (BldA) [Mass fraction] 99 % Pepe Vallejopsey [facility] 06-27-2024 10:01-0500 Systolic blood pressure 120 mm[Hg] Pepe Raji [facility] 06-06-2024 18:15-0500 Blood Pressure Location Pepe Vallejopsey [facility] 06-06-2024 18:15-0500 Diastolic blood pressure 70 mm[Hg] Pepe Raji [facility] 06-06-2024 18:15-0500 Heart rate 73 /min Pepe Vallejopsey [facility] 06-06-2024 18:15-0500 SaO2% (BldA) [Mass fraction] 98 % Pepe Vallejopsey [facility] 06-06-2024 18:15-0500 Systolic blood pressure 118 mm[Hg] Pepe Raji [facility] 03-29-2024 15:59-0400 Body mass index (BMI) [Ratio] 23.05 kg/m2 Miky Danny DO Work Phone: [facility] 03-29-2024 15:59-0400 Body weight 55.34 kg Miky Danny DO Work Phone: [facility] 03-29-2024 15:59-0400 Diastolic blood pressure 68 mm[Hg] Miky Danny DO Work Phone: [facility] 03-29-2024 15:59-0400 Systolic blood pressure 106 mm[Hg] Miky Danny DO Work Phone: [facility] 03-17-2024 17:22-0400 Body temperature 98.6 [degF] Pepe Alegria [facility] 03-17-2024 17:18-0400 Blood Pressure Location Pepe Raji [facility] 03-17-2024 17:18-0400 Diastolic blood pressure 76 mm[Hg] Pepe Vallejopsey [facility] 03-17-2024 17:18-0400 Heart rate 85 /min Pepe Vallejopsey [facility] 03-17-2024 17:18-0400 SaO2% (BldA) [Mass fraction] 98 % Pepe Vallejopsey [facility] 03-17-2024 17:18-0400 Systolic blood pressure 108 mm[Hg] Pepe Raji [facility] 03-08-2024 15:20-0400 Body height 154.9 cm Miky Danny DO Work Phone: [facility] 03-08-2024 15:20-0400 Body mass index (BMI) [Ratio] 23.05 kg/m2 Miky Danny DO Work Phone: [facility] 03-08-2024 15:20-0400 Body weight 55.34 kg Miky Danny DO Work Phone: [facility] 03-08-2024 15:20-0400 Diastolic blood pressure 72 mm[Hg] Mkiy Danny DO Work Phone: [facility] 03-08-2024 15:20-0400 Systolic blood pressure 110 mm[Hg] Miky Danny DO Work Phone: [facility] 02-23-2024 10:04-0400 Blood Pressure Location BEBETO CARTY [facility] 02-23-2024 10:04-0400 Body temperature 98.96 [degF] BEBETO CARTY [facility] 02-23-2024 10:04-0400 Diastolic blood pressure 64 mm[Hg] BEBETO CARTY [facility] 02-23-2024 10:04-0400 Heart rate 80 /min BEBETO CARTY [facility] 02-23-2024 10:04-0400 Respiratory rate 15 /min BEBETO CARTY [facility] 02-23-2024 10:04-0400 SaO2% (BldA) [Mass fraction] 97 % BEBETO CARTY [facility] 02-23-2024 10:04-0400 Systolic blood pressure 112 mm[Hg] BEBETO CARTY [facility] 11-08-2023 10:59-0400 Blood Pressure Location BEBETO CARTY [facility] 11-08-2023 10:59-0400 Body temperature 98.24 [degF] BEBETO CIERSEZWSKI [facility] 11-08-2023 10:59-0400 Diastolic blood pressure 72 mm[Hg] BEBETO CIERSEZWSKI [facility] 11-08-2023 10:59-0400 Heart rate 91 /min BEBETO CIERSEZWSKI [facility] 11-08-2023 10:59-0400 Respiratory rate 15 /min BEBETO CIERSEZWSKI [facility] 11-08-2023 10:59-0400 SaO2% (BldA) [Mass fraction] 99 % BEBETO CIERSEZWSKI [facility] 11-08-2023 10:59-0400 Systolic blood pressure 116 mm[Hg] BEBETO CIERSEZWSKI [facility] 11-04-2023 12:49-0400 Blood Pressure Location BEBETO CIERSEZWSKI [facility] 11-04-2023 12:49-0400 Body temperature 99.86 [degF] BEBETO CIERSEZWSKI [facility] 11-04-2023 12:49-0400 Diastolic blood pressure 62 mm[Hg] BEBETO CIERSEZWSKI [facility] 11-04-2023 12:49-0400 Heart rate 79 /min BEBETO CIERSEZWSKI [facility] 11-04-2023 12:49-0400 Respiratory rate 15 /min BEBETO CIERSEZWSKI [facility] 11-04-2023 12:49-0400 SaO2% (BldA) [Mass fraction] 100 % BEBETO CARTY [facility] 11-04-2023 12:49-0400 Systolic blood pressure 108 mm[Hg] BEBETO SANTILLANEZRICHARDKI [facility] 09-03-2023 16:04-0500 Blood Pressure Location BEBETO CARTY [facility] 09-03-2023 16:04-0500 Diastolic blood pressure 60 mm[Hg] BEBETO HORNKI [facility] 09-03-2023 16:04-0500 Heart rate 86 /min BEBETO CARTY [facility] 09-03-2023 16:04-0500 Respiratory rate 15 /min BEBETO CARTY [facility] 09-03-2023 16:04-0500 SaO2% (BldA) [Mass fraction] 98 % BEBETO CARTY [facility] 09-03-2023 16:04-0500 Systolic blood pressure 118 mm[Hg] BEBETO CARTY [facility] 08-23-2023 16:23-0500 Blood Pressure Location BEBETO CARTY [facility] 08-23-2023 16:23-0500 Body temperature 98.96 [degF] BEBETO HRONKI [facility] 08-23-2023 16:23-0500 Diastolic blood pressure 62 mm[Hg] BEBETO CARTY [facility] 08-23-2023 16:23-0500 Heart rate 61 /min BEBETO CARTY [facility] 08-23-2023 16:23-0500 Respiratory rate 16 /min BEBETO CARTY [facility] 08-23-2023 16:23-0500 SaO2% (BldA) [Mass fraction] 97 % BEBETO CARTY [facility] 08-23-2023 16:23-0500 Systolic blood pressure 112 mm[Hg] BEBETO CARTY [facility] 08-12-2023 17:33-0500 Blood Pressure Location Pepe Alegria [facility] 08-12-2023 17:33-0500 Body temperature 98.06 [degF] Pepe Alegria [facility] 08-12-2023 17:33-0500 Diastolic blood pressure 72 mm[Hg] Pepe Alegria [facility] 08-12-2023 17:33-0500 Heart rate 89 /min Pepe Alegria [facility] 08-12-2023 17:33-0500 SaO2% (BldA) [Mass fraction] 96 % Pepe Alegria [facility] 08-12-2023 17:33-0500 Systolic blood pressure 115 mm[Hg] Pepe Alegria [facility] 01-02-2023 14:04-0400 Body temperature 98.6 [degF] Abiel Dennis [facility] 01-02-2023 14:04-0400 Diastolic blood pressure 77 mm[Hg] Abiel Dennis [facility] 01-02-2023 14:04-0400 Heart rate 57 /min Abiel Dennis [facility] 01-02-2023 14:04-0400 Respiratory rate 16 /min Abiel Dennis [facility] 01-02-2023 14:04-0400 SaO2% (BldA) [Mass fraction] 100 % Abiel Dennis [facility] 01-02-2023 14:04-0400 Systolic blood pressure 134 mm[Hg] Abiel Dennis [facility] 09-28-2022 15:01-0400 Blood Pressure Location Pao Lue [facility] 09-28-2022 15:01-0400 Diastolic blood pressure 68 mm[Hg] Pao Lue [facility] 09-28-2022 15:01-0400 Heart rate 89 /min Pao Lue [facility] 09-28-2022 15:01-0400 Systolic blood pressure 113 mm[Hg] Pao Lue [facility] 06-02-2022 10:55-0500 Blood Pressure Location Darlene Leno [facility] 06-02-2022 10:55-0500 Body temperature 98.6 [degF] Darlene Leno [facility] 06-02-2022 10:55-0500 Diastolic blood pressure 60 mm[Hg] Darlene Leno [facility] 06-02-2022 10:55-0500 Heart rate 78 /min Darlene Leno [facility] 06-02-2022 10:55-0500 Respiratory rate 18 /min Darlene Leno [facility] 06-02-2022 10:55-0500 SaO2% (BldA) [Mass fraction] 96 % Darlene Leno [facility] 06-02-2022 10:55-0500 Systolic blood pressure 118 mm[Hg] Darlene Leno [facility] 04-15-2022 09:04-0400 Blood Pressure Location Pao Lue [facility] 04-15-2022 09:04-0400 Diastolic blood pressure 74 mm[Hg] Pao Lue [facility] 04-15-2022 09:04-0400 Heart rate 66 /min Pao Lue [facility] 04-15-2022 09:04-0400 Systolic blood pressure 122 mm[Hg] Pao Lue [facility] 03-05-2022 15:20-0400 Blood Pressure Location Pao Lue [facility] 03-05-2022 15:20-0400 Diastolic blood pressure 82 mm[Hg] Pao Lue [facility] 03-05-2022 15:20-0400 Systolic blood pressure 120 mm[Hg] Pao Lue [facility] 01-09-2022 15:51-0400 Blood Pressure Location PORTIA SIDELL [facility] 01-09-2022 15:51-0400 Diastolic blood pressure 70 mm[Hg] PORTIA SIDELL [facility] 01-09-2022 15:51-0400 Heart rate 72 /min PORTIA SIDELL [facility] 01-09-2022 15:51-0400 SaO2% (BldA) [Mass fraction] 99 % PORTIA SIDELL [facility] 01-09-2022 15:51-0400 Systolic blood pressure 116 mm[Hg] PORTIA SIDELL [facility] 12-02-2021 11:30-0400 Body temperature 98.78 [degF] Pao Lue [facility] 12-02-2021 11:30-0400 Diastolic blood pressure 78 mm[Hg] Pao Lue [facility] 12-02-2021 11:30-0400 Heart rate 62 /min Pao Lue [facility] 12-02-2021 11:30-0400 Respiratory rate 16 /min Pao Lue [facility] 12-02-2021 11:30-0400 SaO2% (BldA) [Mass fraction] 100 % Pao Lue [facility] 12-02-2021 11:30-0400 Systolic blood pressure 118 mm[Hg] Pao Lue [facility] 12-02-2021 10:49-0400 Blood Pressure Location Pao Lue [facility] 12-02-2021 10:49-0400 Body temperature 97.52 [degF] Pao Lue [facility] 12-02-2021 10:49-0400 Diastolic blood pressure 80 mm[Hg] Pao Lue [facility] 12-02-2021 10:49-0400 Heart rate 62 /min Pao Lue [facility] 12-02-2021 10:49-0400 Mean blood pressure 93 mm[Hg] Pao Lue [facility] 12-02-2021 10:49-0400 Respiratory rate 18 /min Pao Lue [facility] 12-02-2021 10:49-0400 SaO2% (BldA) [Mass fraction] 100 % Pao Lue [facility] 12-02-2021 10:49-0400 Systolic blood pressure 120 mm[Hg] Pao Lue [facility] 12-02-2021 10:40-0400 Body temperature 97.52 [degF] Pao Lue [facility] 12-02-2021 10:40-0400 Diastolic blood pressure 76 mm[Hg] Pao Lue [facility] 12-02-2021 10:40-0400 Heart rate 87 /min Pao Lue [facility] 12-02-2021 10:40-0400 Respiratory rate 18 /min Pao Lue [facility] 12-02-2021 10:40-0400 SaO2% (BldA) [Mass fraction] 99 % Pao Lue [facility] 12-02-2021 10:40-0400 Systolic blood pressure 117 mm[Hg] Pao Lue [facility] 12-02-2021 10:30-0400 Respiratory rate 16 /min Pao Lue [facility] 12-02-2021 10:15-0400 Respiratory rate 12 /min Pao Lue [facility] 12-02-2021 09:17-0400 Body temperature 96.98 [degF] Pao Lue [facility] 12-02-2021 09:15-0400 Respiratory rate 84 /min Pao Lue [facility] 12-02-2021 06:43-0400 Blood Pressure Location Pao Lue [facility] 12-02-2021 06:43-0400 Mean blood pressure 93 mm[Hg] Pao Lue [facility] 12-02-2021 06:42-0400 Blood Pressure Location Pao Lue [facility] 12-02-2021 06:42-0400 Mean blood pressure 87 mm[Hg] Pao Lue [facility] 12-02-2021 06:42-0400 Heart rate 64 /min Pao Lue [facility] 11-25-2021 14:35-0400 Blood Pressure Location Pao Lue [facility] 11-25-2021 14:35-0400 Body temperature 98.06 [degF] Pao Lue [facility] 11-25-2021 14:35-0400 Diastolic blood pressure 79 mm[Hg] Pao Lue [facility] 11-25-2021 14:35-0400 Heart rate 78 /min Pao Lue [facility] 11-25-2021 14:35-0400 Mean blood pressure 91 mm[Hg] Pao Lue [facility] 11-25-2021 14:35-0400 Systolic blood pressure 115 mm[Hg] Pao Lue [facility] 11-25-2021 14:34-0400 Blood Pressure Location Pao Lue [facility] 11-25-2021 14:34-0400 BP/Pulse Patient Position Pao Lue [facility] 11-25-2021 14:34-0400 Diastolic blood pressure 75 mm[Hg] Pao Lue [facility] 11-25-2021 14:34-0400 Heart rate 69 /min Pao Lue [facility] 11-25-2021 14:34-0400 Mean blood pressure 89 mm[Hg] Pao Lue [facility] 11-25-2021 14:34-0400 Respiratory rate 16 /min Pao Lue [facility] 11-25-2021 14:34-0400 SaO2% (BldA) [Mass fraction] 100 % Pao Lue [facility] 11-25-2021 14:34-0400 Systolic blood pressure 119 mm[Hg] Pao Lue [facility] 11-20-2021 10:05-0400 Diastolic blood pressure 77 mm[Hg] Pao Lue [facility] 11-20-2021 10:05-0400 Heart rate 78 /min Pao Lue [facility] 11-20-2021 10:05-0400 Systolic blood pressure 125 mm[Hg] Pao Lue [facility] 11-18-2021 15:51-0400 Blood Pressure Location PORTIA SIDELL [facility] 11-18-2021 15:51-0400 Diastolic blood pressure 80 mm[Hg] PORTIA SIDELL [facility] 11-18-2021 15:51-0400 Heart rate 96 /min PORTIA SIDELL [facility] 11-18-2021 15:51-0400 SaO2% (BldA) [Mass fraction] 98 % PORTIA SIDELL [facility] 11-18-2021 15:51-0400 Systolic blood pressure 16 mm[Hg] PORTIA SIDELL [facility] 06-02-2021 15:59-0500 Body mass index (BMI) [Ratio] 22.28 kg/m2 Presley Baca MD Work Phone: [facility] 06-02-2021 15:59-0500 Body weight 55.25 kg Presley Baca MD Work Phone: [facility] 06-02-2021 15:59-0500 Diastolic blood pressure 79 mm[Hg] Presley Baca MD Work Phone: [facility] 06-02-2021 15:59-0500 Heart rate 71 /min Presley Baca MD Work Phone: [facility] 06-02-2021 15:59-0500 Systolic blood pressure 119 mm[Hg] Presley Baca MD Work Phone: [facility] 02-12-2021 10:42-0400 Body temperature 97.7 [degF] Presley Baca MD Work Phone: [facility] 02-12-2021 10:42-0400 Body weight 55.34 kg Presley Baca MD Work Phone: [facility] 02-12-2021 10:42-0400 Diastolic blood pressure 68 mm[Hg] Presley Baca MD Work Phone: [facility] 02-12-2021 10:42-0400 Systolic blood pressure 140 mm[Hg] Presley Baca MD Work Phone: [facility] 07-24-2020 11:45-0500 Pulse (Heart Rate) 97 /min Bryce ChristieSouktel [facility], [place] 07-24-2020 11:30-0500 BP Diastolic 70 mm[Hg] Bryce ChristieSouktel [facility] , [place] 07-24-2020 11:30-0500 BP Systolic 122 mm[Hg] Bryce Camarillo [facility] , [place] 07-24-2020 11:30-0500 Pulse Oximetry 98 % Bryce Camarillo [facility] , [place] 07-24-2020 11:25-0500 Respiratory Rate 13 /min Bryce Camarillo [facility], [place] 07-24-2020 11:12-0500 Body Temperature 96.8 [degF] [facility] [place] 07-24-2020 08:46-0500 BMI (Body Mass Index) 24.19 kg/m2 Bryce Camarillo [facility], [place] 07-24-2020 08:46-0500 Body weight 59.99 kg Bryce Camarillo [facility] , [place] 07-24-2020 08:46-0500 Height 157.5 cm Bryce Camarillo [facility] , [place] 04-16-2019 14:34-0400 Body Temperature 99.1 [degF] El [facility], [place] 04-16-2019 14:34-0400 Body weight 65.77 kg [facility] , [place] 04-16-2019 14:34-0400 BP Diastolic 101 mm[Hg] [facility] [place] 04-16-2019 14:34-0400 BP Systolic 144 mm[Hg] [facility] [place] 04-16-2019 14:34-0400 Pulse (Heart Rate) 82 /min [facility], [place] 04-16-2019 14:34-0400 Pulse Oximetry 99 % [facility] , [place] 04-16-2019 14:34-0400 Respiratory Rate 16 /min [facility], [place] 04-07-2019 11:56-0400 Body Temperature 98.6 [degF] [facility], [place] 04-07-2019 11:56-0400 Body weight 65.77 kg [facility] , [place] 04-07-2019 11:56-0400 BP Diastolic 93 mm[Hg] [facility] , [place] 04-07-2019 11:56-0400 BP Systolic 133 mm[Hg] [facility] , [place] 04-07-2019 11:56-0400 Pulse (Heart Rate) 103 /min [facility], [place] 04-07-2019 11:56-0400 Pulse Oximetry 99 % [facility] , [place] 04-07-2019 11:56-0400 Respiratory Rate 18 /min [facility], [place] 04-05-2019 19:32-0400 BP Diastolic 93 mm[Hg] Fausto Mike [facility], [place] 04-05-2019 19:32-0400 BP Systolic 128 mm[Hg] Fausto Mike [facility], [place] 04-05-2019 18:31-0400 Body Temperature 97.5 [degF] Fausto Ramsey [facility], [place] 04-05-2019 18:31-0400 Pulse (Heart Rate) 97 /min [facility] [place] 04-05-2019 18:31-0400 Pulse Oximetry 99 % Fausto Mike [facility], [place] 04-05-2019 18:31-0400 Respiratory Rate 15 /min Fausto Mike [facility], [place] Encounters Encounter Date Encounter Type Care Provider Facility Start: 04-11-2025 End: 04-11-2025 ambulatory SINAI CASTANON Facility:[facility] Start: 04-06-2025 End: 04-06-2025 ambulatory BEBETO CARTY Facility:[facility] Start: 03-28-2025 End: 03-28-2025 ambulatory BEBETO CARTY Facility:[facility] Start: 03-23-2025 End: 03-23-2025 ambulatory BEBETO CARTY Facility:[facility] Start: 03-23-2025 End: 03-23-2025 Patient encounter procedure BEBETO CARTY [facility] [place] Start: 03-23-2025 ambulatory BEBETO CARTY Faci [facility]ity:[facility] [place] Start: 03-21-2025 End: 03-21-2025 ambulatory BEBETO CARTY Facility:[facility] Start: 03-21-2025 Encounter for other preprocedural examination RUBENS PRINGLE [facility] Start: 03-09-2025 End: 03-09-2025 Patient encounter procedure Nurse Urol [facility] Work Phone: Urology Comment on above: Neurogenic bladder ( Primary Dx) Start: 03-09-2025 End: 03-09-2025 ambulatory BEBETO CARTY Facility:[facility] Start: 03-06-2025 End: 03-08-2025 Telephone encounter Sinai Castanon MD Work Phone: Urology Comment on above: Appointment Start: 02-28-2025 End: 02-28-2025 ambulatory BEBETO CARTY Facility:[facility] Start: 02-28-2025 End: 02-28-2025 Patient encounter procedure BEBETO CARTY [facility] Start: 02-26-2025 End: 02-26-2025 ambulatory Alexa Alves RN NURSE PUBLIC POLICY ANALYST Start: 02-26-2025 End: 02-26-2025 Patient encounter procedure Alexa Alves RN NURSE PUBLIC POLICY ANALYST Comment on above: Clinical Update Start: 01-31-2025 End: 01-31-2025 ambulatory BEBETO CARTY Facility:[facility] Start: 01-31-2025 End: 01-31-2025 Patient encounter procedure BEBETO CARTY [facility] Start: 01-27-2025 End: 01-27-2025 Emergency department patient visit [facility] Facility:[facility] Start: 01-27-2025 End: 01-27-2025 Emergency department patient visit [facility] Facility:[facility] Start: 01-26-2025 End: 01-26-2025 Telephone encounter Sinai Castanon MD Work Phone: Urology Comment on above: Catheter Issue Start: 01-26-2025 End: 01-26-2025 ambulatory BEBETO CARTY Facility:[facility] Start: 01-25-2025 End: 01-25-2025 ambulatory Pao Macedo Facility: [place] Start: 01-25-2025 End: 01-25-2025 Patient encounter procedure Pao Macedo [facility] [place] Start: 01-15-2025 End: 01-15-2025 Telephone encounter Sinai Castanon MD Work Phone: Urology Start: 01-11-2025 End: 01-11-2025 Patient encounter procedure Sinai Castanon MD Work Phone: Urology Comment on above: Retention of urine ( Primary Dx); Suprapubic catheter (HCC) Start: 01-11-2025 End: 01-11-2025 ambulatory BEBETO CARTY Facility:[facility] Start: 01-11-2025 Encounter for other preprocedural examination RUBENS PRINGLE [facility] Start: 01-10-2025 End: 01-10-2025 ambulatory Sinai Castanon MD Work Phone: Urology Comment on above: Axonics Start: 01-10-2025 End: 01-10-2025 E-mail encounter from caregiver Sinai Castanon MD Work Phone: Urology Start: 01-09-2025 End: 01-09-2025 ambulatory Sinai Castanon MD Work Phone: Urology Start: 01-09-2025 End: 01-09-2025 Patient encounter status Sinai Castanon MD Work Phone: [facility] Start: 01-04-2025 End: 01-04-2025 Telephone encounter Salvador Thompson RN [facility] Radiol ogy Procedure Comment on above: Radiology Pre Proced ure Instructions Start: 12-29-2024 End: 12-29-2024 Refill Tom Gibbs MD Work Phone: Urology Comment on above: Catheter Issue Start: 12-26-2024 End: 12-26-2024 ambulatory BEBETO CARTY Facility:[facility] Start: 12-26-2024 End: 12-26-2024 Patient encounter procedure BEBETO CARTY [facility] [place] Start: 12-20-2024 End: 12-21-2024 Follow-up encounter Sinai Castanon MD Work Phone: Urology Start: 12-19-2024 End: 12-19-2024 Patient encounter procedure Nurse Urol [facility] Work Phone: Urology Comment on above: Vaginal pain (Primar y Dx); Pelvic pain in female Start: 12-19-2024 End: 12-19-2024 ambulatory BEBETO CARTY Facility:[facility] Start: 12-11-2024 End: 12-11-2024 Telephone encounter Sinai Castanon MD Work Phone: Urology Comment on above: suprapubic catheter Start: 12-08-2024 End: 12-08-2024 Orders Only [facility] Provider [facility] Comment on above: Urinary retention (P rimary Dx) Start: 12-07-2024 End: 12-07-2024 Office outpatient visit 25 minutes Bola Cooley MD Work Phone: [facility] Comment on above: 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); Neuropathic pain; Urinary retention; Migraine with aura and without status migrainosus, not intractable; Migraine without aura and without status migrainosus, not intractable Start: 12-07-2024 End: 12-07-2024 ambulatory BEBETO CARTY Facility:[facility] Start: 12-06-2024 End: 12-06-2024 Telephone encounter Vanessa Bryant RN Angio Comment on above: Follow Up Start: 11-30-2024 End: 12-01-2024 Telephone encounter Ilda Smith RN [facility] Radiol ogy Procedure Comment on above: IR Outpatient Tube A ppointment Request Start: 11-30-2024 End: 11-30-2024 ambulatory [facility] Start: 11-28-2024 End: 11-28-2024 ambulatory MOISE DIAS Facility:[facility] Start: 11-24-2024 End: 11-24-2024 ambulatory RUBENS PRINGLE Facility:[facility] Start: 11-22-2024 End: 01-22-2025 Follow-up encounter Bola Cooley MD Work Phone: [facility] Start: 11-20-2024 End: 11-20-2024 Telephone encounter Bryce Banegas MD Work Phone: [facility] Start: 11-16-2024 End: 11-16-2024 Emergency department patient visit Kenn Tello [facility] Start: 11-14-2024 End: 11-14-2024 Telephone encounter Sinai Castanon MD Work Phone: Urology Comment on above: Patient Update Start: 11-14-2024 End: 11-14-2024 ambulatory STEVE FAJARDO Facility:[facility] Start: 11-10-2024 End: 11-10-2024 Telephone encounter Sinai Castanon MD Work Phone: Urology Comment on above: Urinary Retention Start: 11-10-2024 End: 11-10-2024 Patient encounter procedure Urol Nurse Work Phone: Urology [facility] Comment on above: Neurogenic bladder ( Primary Dx) Start: 11-10-2024 End: 11-10-2024 ambulatory BEBETO CARTY Facility:[facility] Start: 11-09-2024 End: 11-09-2024 ambulatory Pao Macedo [facility] Start: 11-07-2024 End: 11-07-2024 ambulatory BEBETO CARTY Facility:[facility] Start: 11-07-2024 End: 11-07-2024 Patient encounter procedure Sinai Castanon MD Work Phone: Urology Comment on above: Neurogenic bladder ( Primary Dx); Screening for genitourinary condition; Endometriosis; Retention of urine; High-tone pelvic floor dysfunction in female; Dyspareunia in female Start: 11-03-2024 End: 01-03-2025 Follow-up encounter Bola Cooley MD Work Phone: Neurology Start: 11-02-2024 End: 11-02-2024 ambulatory AMANDA ALVARADO Facility:[facility] Start: 11-02-2024 End: 11-02-2024 Office outpatient new 45 minutes Bola Cooley MD Work Phone: [facility] Comment on above: 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); Urinary retention; Migraine with aura and without status migrainosus, not intractable; Neuropathic pain Start: 11-02-2024 ambulatory BOLA COOLEY Facility: [facility] Start: 10-24-2024 End: 10-24-2024 ambulatory Pao Macedo Facility:[facility] Start: 10-24-2024 End: 10-24-2024 Patient encounter procedure Pao Macedo [facility] Start: 10-20-2024 End: 10-20-2024 ambulatory Pao Macedo Facility:[facility] Start: 10-19-2024 End: 10-19-2024 Lab Drop off BEBETO CARTY [facility] Start: 10-19-2024 End: 10-19-2024 ambulatory BEBETO CARTY Facility:[facility] Start: 10-13-2024 End: 10-13-2024 Emergency department patient visit Antony Singh [facility] Start: 10-13-2024 End: 10-13-2024 ambulatory Pepe Alegria Facility: [place] Start: 10-12-2024 End: 10-12-2024 ambulatory BEBETO CARTY Facility:[facility] Start: 10-12-2024 End: 10-12-2024 Patient encounter procedure BEBETO CARTY [facility] Start: 10-06-2024 End: 10-06-2024 Telephone encounter Sinai Castanon MD Work Phone: Urology Comment on above: Deandre Whatcom 3-17-2 5 Clinical Records Recv'd Start: 09-29-2024 End: 09-30-2024 ambulatory BEBETO CARTY Facility:[facility] Start: 09-29-2024 End: 09-30-2024 Patient encounter procedure BEBETO CARTY [facility] Start: 09-27-2024 End: 09-27-2024 ambulatory Inés Be Facility: [place] Start: 09-22-2024 End: 09-23-2024 ambulatory ROOF TECHNICIAN-C BEBETO CARTY Facility:[facility] Start: 09-18-2024 End: 09-18-2024 ambulatory Pao Macedo Facility:[facility] Start: 09-17-2024 End: 09-17-2024 Emergency department patient visit Fausto Rivera [facility] Start: 09-15-2024 End: 09-16-2024 Emergency department patient visit Jung Sandoval [facility] Start: 09-05-2024 End: 09-05-2024 Admission to same day surgery center Pao Macedo [facility] Start: 09-05-2024 End: 09-05-2024 ambulatory Pao Macedo Facility:[facility] Start: 08-31-2024 End: 08-31-2024 Bamboo flowsheet Miky Danny DO Work Phone: [facility] Start: 08-31-2024 End: 08-31-2024 Bamboo flowsheet Miky Danny DO Work Phone: [facility] Start: 08-31-2024 End: 08-31-2024 Office outpatient visit 15 minutes Miky Danny DO Work Phone: [facility] Comment on above: Bacterial vaginosis Start: 08-31-2024 End: 08-31-2024 ambulatory MIKY DANNY Not Available Start: 08-30-2024 End: 08-30-2024 ambulatory Pao M. Lue Facility:[facility] Start: 08-30-2024 End: 08-30-2024 Patient encounter procedure Pao Nagy. Denisae [facility] Start: 08-07-2024 End: 09-19-2024 Pre-admission assessment Pao Nagy. Denisae [facility] Start: 07-27-2024 End: 07-27-2024 ambulatory Pao M. Lue Facility:[facility] Start: 07-27-2024 End: 07-27-2024 Lab Drop off Pao Nagy. Denisae [facility] Start: 07-27-2024 End: 07-27-2024 ambulatory Pao M. Lue Facility:[facility] Start: 07-27-2024 End: 07-27-2024 Patient encounter procedure Pao Nagy. Denisae [facility] Start: 07-18-2024 End: 07-18-2024 Bamboo flowsheet Pepper DELGADILLO Work Phone: [facility] Start: 07-18-2024 End: 07-18-2024 Bamboo flowsheet Pepper DELGADILLO Work Phone: [facility] Start: 07-18-2024 End: 07-18-2024 ambulatory PEPPER EAST Not Available Start: 07-18-2024 End: 07-18-2024 Office outpatient visit 15 minutes Pepper DELGADILLO Work Phone: [facility] Comment on above: Vaginal symptom (Clarita salvador Dx); Vaginal discharge Start: 06-27-2024 End: 06-27-2024 Lab Drop off Pepe NagySamantha Alegria [facility] Start: 06-27-2024 End: 06-27-2024 ambulatory Pepe MSamantha Raji Facility:[facility] Start: 06-27-2024 End: 06-27-2024 Patient encounter procedure Pepe Alegria [facility] Start: 06-06-2024 End: 06-06-2024 ambulatory Pepe Graceey Facility:[facility] Start: 06-06-2024 End: 06-06-2024 Patient encounter procedure Pepe YakovSamantha Alegria [facility] Start: 05-19-2024 End: 05-19-2024 ambulatory LC EDMONDS Facility:[facility] Start: 05-19-2024 End: 05-19-2024 Lab Drop off LC EDMONDS [facility] Start: 05-19-2024 End: 05-19-2024 ambulatory LC A MARLENA [facility] Start: 05-19-2024 ambulatory Pepecayden VallejoRaji Facility: [facility] [place] Start: 03-29-2024 End: 03-29-2024 Patient encounter procedure Miky Danny DO Work Phone: [facility] Work Phone: Start: 03-29-2024 End: 03-29-2024 Periodic preventive med est patient 18-39 yrs Miky Danny DO Work Phone: [facility] Comment on above: Well woman exam with routine gynecological exam; Vaginal discharge; STD exposure Start: 03-29-2024 End: 03-29-2024 ambulatory MIKY DANNY Not Available Start: 03-29-2024 End: 03-29-2024 Bamboo flowsheet Miky Danny DO Work Phone: [facility] Start: 03-29-2024 End: 04-05-2024 Clinisync Result Encounter Miky Danny DO Work Phone: [facility] External Department Unsolicited Start: 03-29-2024 End: 04-05-2024 Clinisync Result Encounter Miky Danny DO Work Phone: [facility] External Department Unsolicited Start: 03-17-2024 End: 03-17-2024 ambulatory Pepe Alegria Facility:[facility] Start: 03-17-2024 End: 03-17-2024 Patient encounter procedure Pepe Alegria [facility] Start: 03-08-2024 End: 03-08-2024 Office outpatient visit 15 minutes Miky Danny DO Work Phone: [facility] Comment on above: Vaginal discharge; Bacterial infection due to mycoplasma Start: 03-08-2024 End: 03-08-2024 ambulatory MIKY DANNY Not Available Start: 03-08-2024 End: 03-08-2024 Bamboo flowsheet Miky Danny DO Work Phone: [facility] Start: 03-08-2024 End: 03-08-2024 Bamboo flowsheet Miky Danny DO Work Phone: [facility] Start: 02-23-2024 End: 02-23-2024 Patient encounter procedure BEBETO CARTY [facility] [place] Start: 2024 End: 2024 ambulatory MIKY DANNY Not Available Start: 11-08-2023 End: 11-08-2023 Lab Drop off BEBETO R LOGAN [facility] Start: 11-08-2023 End: 11-08-2023 Patient encounter procedure BEBETO R LOGAN [facility] Start: 11-04-2023 End: 11-04-2023 Patient encounter procedure BEBETO CARTY [facility] Start: 09-25-2023 End: 09-25-2023 Patient encounter procedure BEBETO Abdelrahman LOGAN [facility] Start: 09-03-2023 End: 09-03-2023 Patient encounter procedure BEBETO Abdelrahman LOGAN [facility] Start: 08-23-2023 End: 08-23-2023 Patient encounter procedure BEBETOInes CARTY [facility] Start: 08-12-2023 End: 08-12-2023 Patient encounter procedure Pepe Alegria [facility] Start: 01-02-2023 End: 01-02-2023 Emergency department patient visit Abiel Dennis [facility] Start: 10-26-2022 End: 10-26-2022 Patient encounter procedure Pao Macedo [facility] Start: 09-28-2022 End: 10-13-2022 Pre-admission assessment Pao Macedo [facility] Start: 09-28-2022 End: 09-28-2022 Patient encounter procedure Pao Macedo [facility] Start: 08-17-2022 End: 08-17-2022 Patient encounter procedure Pao Macedo [facility] Start: 08-14-2022 End: 08-14-2022 Lab Drop off Pao Macedo [facility] Start: 08-14-2022 End: 08-14-2022 Patient encounter procedure Pao Macedo [facility] Start: 06-16-2022 End: 06-16-2022 Lab Drop off Pao Macedo [facility] Start: 06-15-2022 End: 06-15-2022 Patient encounter procedure Pao Macedo [facility] Start: 06-04-2022 End: 06-04-2022 Patient encounter procedure PORTIA GOLDEN [facility] [place] Start: 06-02-2022 End: 06-02-2022 Patient encounter procedure Darlene Burr [facility] [place] Start: 04-15-2022 End: 04-15-2022 Patient encounter procedure Pao Macedo [facility] [place] Start: 03-05-2022 End: 03-05-2022 Patient encounter procedure Pao Macedo [facility] Start: 01-13-2022 Vance Baca MD Work Phone: [facility] Comment on above: Pelvic pain in femal e Start: 01-09-2022 End: 01-09-2022 Patient encounter procedure PORTIA GOLDEN [facility] [place] Start: 12-02-2021 End: 12-02-2021 Admission to same day surgery center Pao Macedo [facility] Start: 11-27-2021 End: 02-25-2022 Preprocedural examination done Pao Macedo [facility] Start: 11-27-2021 End: 02-25-2022 Recurring Pao Macedo [facility] Start: 11-25-2021 End: 11-25-2021 Patient encounter procedure Pao Macedo [facility] Start: 11-20-2021 End: 11-20-2021 Patient encounter procedure Pao Macedo [facility] Start: 11-18-2021 End: 11-18-2021 Patient encounter procedure PORTIA GOLDEN [facility] [place] Start: 11-17-2021 Vance Baca MD Work Phone: [facility] Gynecology Comment on above: Pelvic pain in femal e Start: 10-14-2021 Refill Presley Baca MD Work Phone: [facility] Gynecology Comment on above: Pelvic pain in femal e Start: 09-02-2021 End: 09-02-2021 ambulatory MIRYAM GIRALDO [facility] Start: 08-14-2021 End: 08-14-2021 ambulatory ANASTASIA ADAME [facility] Start: 08-12-2021 Refill Presley Baca MD Work Phone: [facility] Gynecology Comment on above: Interstitial cystiti s Start: 06-24-2021 End: 06-25-2021 [facility] Start: 06-02-2021 End: 06-02-2021 ambulatory PRESLEY BACA [facility] Start: 06-02-2021 End: 06-02-2021 Postop follow up visit related to original px Presley Baca MD Work Phone: [facility] Gynecology Comment on above: Postop check (Primar y Dx); Endometriosis; Pelvic pain in female; Dysmenorrhea; Female pelvic congestion syndrome; Interstitial cystitis Start: 05-16-2021 End: 05-16-2021 [facility] Start: 05-15-2021 Documentation procedure Lance Macdonald MD Work Phone: [facility] Gyne[facility] Start: 05-13-2021 End: 05-17-2021 Clinical Support Amy Guaman RN [facility] Gynecology Comment on above: Pelvic pain in femal e (Primary Dx) Start: 05-13-2021 End: 05-13-2021 ambulatory PHYSICIAN NO [facility] Start: 04-15-2021 ambulatory SHIVRADHIKAMINI SOMANDARAM [facility] Ambulatory Start: 03-24-2021 Orders Only Presley Baca MD Work Phone: [facility] Gynecology Comment on above: Endometriosis (Prima ry Dx); Pelvic pain in female; Dysmenorrhea; Female pelvic congestion syndrome Start: 03-13-2021 Refill Presley Baca MD Work Phone: [facility] Comment on above: Pelvic pain in femal e Start: 02-19-2021 End: 02-19-2021 [facility] Start: 02-17-2021 Refill Presley Baca MD Work Phone: [facility] Gynecology Comment on above: Pelvic pain in femal e (Primary Dx) Start: 02-12-2021 End: 02-12-2021 ambulatory SHIJASONMINI SOMANDARAM [facility] Start: 02-12-2021 End: 02-12-2021 Office outpatient new 45 minutes Presley Baca MD Work Phone: [facility] Gynecology Comment on above: Endometriosis; Pelvic pain in female; Interstitial cystitis; Vaginal discharge Start: 01-09-2021 ambulatory [facility] Start: 07-24-2020 End: 07-24-2020 Patient encounter procedure BRYCE CAMARILLO [facility] Start: 07-24-2020 End: 07-24-2020 Subsequent hospital visit by physician Bryce Camarillo Work Phone: [facility] [place] Comment on above: Pre-op testing (Prim rehana Dx) Start: 07-23-2020 End: 07-24-2020 Patient encounter procedure BRYCE CAMARILLO [facility] Start: 07-23-2020 End: 07-23-2020 Subsequent hospital visit by physician BLANQUITA Cedeño Lab Draw Start: 07-20-2020 End: 07-21-2020 Patient encounter procedure [facility] Start: 07-20-2020 End: 07-20-2020 Subsequent hospital visit by physician Kristofer Rose Screening Schedule KRISTOFER Rose Screening Comment on above: Preop testing (Prima ry Dx) Start: 04-16-2019 End: 04-16-2019 Emergency department patient visit [facility] Start: 04-16-2019 End: 04-16-2019 Emergency department patient visit [facility] Work Phone: [facility] ED Comment on above: Interstitial cystiti s (Primary Dx) Start: 04-07-2019 End: 04-07-2019 Emergency department patient visit [facility] Start: 04-07-2019 End: 04-07-2019 Emergency department patient visit [facility] ED Comment on above: Non-intractable vomi ting with nausea, unspecified vomiting type (Primary Dx); Acute urinary tract infection Start: 04-05-2019 End: 04-05-2019 Emergency department patient visit [facility] Start: 04-05-2019 End: 04-05-2019 Emergency department patient visit [facility] ED Comment on above: Hemorrhagic cystitis (Primary Dx) Start: 05-13-2018 End: 05-13-2018 Emergency department patient visit BRYCE PONCE SWARTZ Facility:[facility] Procedures Date Procedure Procedure Detail Performing Clinician Start: 09-05-2024 Cystoscopy Pao Macedo Start: 07-18-2024 Urnls dip stick/tabl et rgnt non-auto w/o micrscp Pepper DELGADILLO Work Phone: Start: 03-29-2024 IGP,APTIMA HPV,AGE GDLN Miky Danny DO Work Phone: Start: 12-02-2021 Cystoscopy PORTIA BUSBY Comment on above: hydrodistension Start: 02-12-2021 Iadna daisy specie s direct probe tq Presley Baca MD Work Phone: Start: 07-24-2020 Urine test visual color cmprsn meths Bryce Camarillo Work Phone: Start: 07-24-2020 Cystourethroscopy wi th dilation of urethral stricture Pao Macedo Start: 07-23-2020 Blood count complete automated Bryce Camarillo Work Phone: Start: 07-05-2019 Cystoscopy Pao Macedo Start: 04-16-2019 Urinalysis microscopic only FAUSTO VILLEGAS Start: 04-16-2019 Urine test visual color cmprsn meths FAUSTO VILLEGAS Start: 04-16-2019 Urnls dip stick/tabl et rgnt auto w/o microscopy FAUSTO VILLEGAS Start: 04-16-2019 Urinalysis microscopic only [employer] Work Phone: Start: 04-16-2019 Urine test visual color cmprsn meths ESILLAGE Work Phone: Start: 04-16-2019 Urnls dip stick/tabl et rgnt auto w/o microscopy [employer] Work Phone: Start: 04-07-2019 Ct abdomen & pelvis w/o contrast material FAUSTO VILLEGAS Start: 04-07-2019 Culture bacterial bl ood aerobic w/id isolates FAUSTO VILLEGAS Start: 04-07-2019 Blood count complete automated FAUSTO VILLEGAS Start: 04-07-2019 Comprehensive metabo lic panel FAUSTO VILLEGAS Start: 04-07-2019 Culture bacterial quanttative colony count urine FAUSTO VILLEGAS Start: 04-07-2019 Urinalysis microscopic only FAUSTO VILLEGAS Start: 04-07-2019 Urine test visual color cmprsn meths FAUSTO VILLEGAS Start: 04-07-2019 Urnls dip stick/tabl et rgnt auto w/o microscopy FAUSTO VILLEGAS Start: 04-07-2019 Assay of lactate BILLIEBHAVYA Angelia VILLEGAS Start: 04-07-2019 Ct abdomen & pelvis w/o contrast material Shannan Reynoso Work Phone: Start: 04-07-2019 Blood count complete automated Shannan Reynoso Work Phone: Start: 04-07-2019 Comprehensive metabo lic panel Shannan Reynoso Work Phone: Start: 04-07-2019 LACTATE, SEPSIS Shannan tinajero Work Phone: Start: 04-07-2019 Urinalysis microscopic only Shannan Reynoso Work Phone: Start: 04-07-2019 Urine test visual color cmprsn meths Shannan Reynoso Work Phone: Start: 04-07-2019 Urnls dip stick/tabl et rgnt auto w/o microscopy Shannan Reynoso Work Phone: Start: 04-05-2019 Blood count complete auto&auto difrntl wbc FAUSTO VILLEGAS Start: 04-05-2019 Urine test visual color cmprsn meths FAUSTO VILLEGAS Start: 04-05-2019 Urnls dip stick/tabl et reagent auto microscopy FAUSTO VILLEGAS Start: 04-05-2019 Blood count complete auto&auto difrntl wbc Fausto Villegas Start: 04-05-2019 Urine test visual color cmprsn meths Shannan Reynoso Work Phone: Start: 04-05-2019 Urnls dip stick/tabl et reagent auto microscopy Fausto Villegas Cystocele (disorder) PORTIA Nedra MORTON History of tonsillectomy HANH NICK GOLDEN Hysterectomy Pao Macedo Laparoscope, device (physical object) PORTIANICK GOLDEN Laparoscope, device (physical object) Pao Macedo Laser uterosacral ne rve ablation Pao Macedo Laser uterosacral ne rve ablation Pao Macedo Plan of Treatment Date Care Activity Detail Author Start: 01-31-2030 DTaP/Tdap/Td vaccine (8 - Td) DTaP/Tdap/Td vaccine (8 - Td) [place] Start: 01-31-2030 Tetanus vaccination Tetanus: Every 1 0yrs [facility] Start: 05-10-2025 End: 05-10-2025 Patient encounter procedure 05/10/2025 2:00 PM EST Office Visit Urology [address] [place] [address] Analia Parra PA-C [address] [place] [address] post op Urology Comment on above: post op Start: 04-18-2025 End: 04-18-2025 Patient encounter procedure 04/18/2025 4:00 PM EDT Office Visit [facility] [address] [place] [address] Miky Delgado, DO [address] [facility] [address] [place], [facility] Start: 04-11-2025 End: 04-11-2025 Admission to same day surgery center [facility] Comment on above: INSRT NSTIM INTERSTI M PROCEDURE STAGE 2 W/ POCKET CREATE AND CONNECT BTWN ELCTRD ARRAY AND PULSE GENERATOR OR RECVR Start: 04-11-2025 End: 04-11-2025 Insertion/rplcmt peripheral/gastric npgr [facility] Start: 04-11-2025 Subsequent hospital visit by physician [facility] Comment on above: Urinary retention [R 33.9] Start: 04-11-2025 End: 04-11-2025 Admission to same day surgery center 04/11/2025 9:45 AM EDT - 04/11/2025 10:45 AM EDT Surgery [facility] [address] [place] [address] Sinai Castanon MD [address] [place] [address] INSRT NSTIM INTERSTIM PROCEDURE STAGE 2 W/ POCKET CREATE AND CONNECT BTWN ELCTRD ARRAY AND PULSE GENERATOR OR RECVR [facility] Comment on above: INSRT NSTIM INTERSTI M PROCEDURE STAGE 2 W/ POCKET CREATE AND CONNECT BTWN ELCTRD ARRAY AND PULSE GENERATOR OR RECVR Start: 04-11-2025 End: 04-11-2025 Insertion/rplcmt peripheral/gastric npgr INSRT NSTIM INTERSTIM PROCEDURE STAGE 2 W/ POCKET CREATE AND CONNECT BTWN ELCTRD ARRAY AND PULSE GENERATOR OR RECVR Urinary retention 04/11/2025 9:45 AM EDT [facility] Start: 04-11-2025 Subsequent hospital visit by physician 04/11/2025 9:45 AM EDT Hospital Encounter [facility] [address] [place] [address] Sinai Castanon MD [address] [place] [address] Urinary retention [R33.9] [facility] Comment on above: Urinary retention [R 33.9] Start: 04-09-2025 End: 04-09-2025 Patient encounter procedure 04/09/2025 4:00 PM EDT Office [facility] [address] [place] [address] Miky Delgado, [address] [place] [address] [facility] Start: 03-28-2025 End: 03-28-2025 Admission to same day surgery center 03/28/2025 11:20 AM EDT - 03/28/2025 12:35 PM EDT Surgery [facility] [address] [place] [address] Sinai Castanon MD [address] [place] [address] PERCUTANEOUS IMPLANTATION OF NEUROSTIMULATOR ECLECTRODE ARRAY SACRAL NERVE W/IMAGE GUIDANCE [facility] Comment on above: PERCUTANEOUS IMPLANT ATION OF NEUROSTIMULATOR ECLECTRODE ARRAY SACRAL NERVE W/IMAGE GUIDANCE Start: 03-28-2025 End: 03-28-2025 Prq impltj neurostim eltrd sacral nrve w/imaging PERCUTANEOUS IMPLANTATION OF NEUROSTIMULATOR ECLECTRODE ARRAY SACRAL NERVE W/IMAGE GUIDANCE Urinary retention 03/28/2025 11:20 AM EDT [facility] Start: 03-28-2025 Subsequent hospital visit by physician 03/28/2025 11:20 AM EDT Hospital Encounter [address] [place] [address] Sinai Castanon MD [address] [place] [address] Urinary retention [R33.9] [facility] Comment on above: Urinary retention [R 33.9] Start: 03-28-2025 End: 03-28-2025 Admission to same day surgery center 03/28/2025 7:30 AM EDT - 03/28/2025 8:30 AM EDT Surgery [address] [place] [address] Sinai Castanon MD [address] [place] [address] PERCUTANEOUS IMPLANTATION OF NEUROSTIMULATOR ECLECTRODE ARRAY SACRAL NERVE W/IMAGE GUIDANCE [facility] Comment on above: PERCUTANEOUS IMPLANT ATION OF NEUROSTIMULATOR ECLECTRODE ARRAY SACRAL NERVE W/IMAGE GUIDANCE Start: 03-28-2025 End: 03-28-2025 Prq impltj neurostim eltrd sacral nrve w/imaging PERCUTANEOUS IMPLANTATION OF NEUROSTIMULATOR ECLECTRODE ARRAY SACRAL NERVE W/IMAGE GUIDANCE Urinary retention 03/28/2025 7:30 AM EDT [facility] Start: 03-28-2025 Subsequent hospital visit by physician 03/28/2025 7:30 AM EDT Hospital Encounter [address] [place] [id number] Sinai Castanon MD [address] [place] [address] Urinary retention [R33.9] [facility] Comment on above: Urinary retention [R 33.9] Start: 03-21-2025 End: 03-21-2025 Anesthesia consultation Pre Anesthesia Comment on above: VV [id number] PERCUT ANEOUS IMPLANTATION OF NEUROSTIMULATOR 03/28 04/11 Start: 03-14-2025 End: 03-14-2025 Admission to same day surgery center 03/14/2025 10:35 AM EDT - 03/14/2025 11:35 AM EDT Surgery [address] [place] [address] Sinai Castanon MD [address] [place] [address] INSRT NSTIM INTERSTIM PROCEDURE STAGE 2 W/ POCKET CREATE AND CONNECT BTWN ELCTRD ARRAY AND PULSE GENERATOR OR RECVR [facility] Comment on above: INSRT NSTIM INTERSTI M PROCEDURE STAGE 2 W/ POCKET CREATE AND CONNECT BTWN ELCTRD ARRAY AND PULSE GENERATOR OR RECVR Start: 03-14-2025 End: 03-14-2025 Insertion/rplcmt peripheral/gastric npgr INSRT NSTIM INTERSTIM PROCEDURE STAGE 2 W/ POCKET CREATE AND CONNECT BTWN ELCTRD ARRAY AND PULSE GENERATOR OR RECVR Urinary retention 03/14/2025 10:35 AM EDT [facility] Start: 03-14-2025 Subsequent hospital visit by physician [facility] Comment on above: Urinary retention [R 33.9] Start: 03-09-2025 End: 03-09-2025 Patient encounter procedure 03/09/2025 3:15 PM EDT Office Visit Urology [address] [place] [address] SPT change ( Please ask patient if further changes to be done here? or HC) Urology Comment on above: SPT change ( Please ask patient if further changes to be done here? or HC) Start: 03-05-2025 Influenza vaccination C [facility] Start: 02-28-2025 End: 02-28-2025 Admission to same day surgery center [facility] Comment on above: PERCUTANEOUS IMPLANT ATION OF NEUROSTIMULATOR ECLECTRODE ARRAY SACRAL NERVE W/IMAGE GUIDANCE Start: 02-28-2025 End: 02-28-2025 Prq impltj neurostim eltrd sacral nrve w/imaging [facility] Start: 02-28-2025 Subsequent hospital visit by physician [facility] Comment on above: Urinary retention [R 33.9] Start: 02-16-2025 End: 02-16-2025 Anesthesia consultation 02/16/2025 2:30 PM EDT PAT Pre Anesthesia [address] [place] [address] VV [id number] PERCUTANEOUS IMPLANTATION OF NEUROSTIMULATOR 02/28 & 03/14 Pre Anesthesia Comment on above: VV [id number] PERCUT ANEOUS IMPLANTATION OF NEUROSTIMULATOR 02/28 & 03/14 Start: 01-26-2025 End: 04-27-2025 Bacteria identified in Urine by Culture [facility] Comment on above: Expected: 01/26/2025 , Expires: 04/27/2025 Start: 01-26-2025 End: 04-27-2025 URINALYSIS, REFLEX MICROSCOPIC [facility] Work Phone: Comment on above: Expected: 01/26/2025 , Expires: 04/27/2025 Start: 01-12-2025 End: 01-12-2025 Admission to same day surgery center [facility] Radiology Procedure Comment on above: SUPRAPUBIC Exchange Start: 01-12-2025 End: 01-12-2025 Aspiration bladder insert suprapubic catheter [facility] Start: 01-12-2025 Subsequent hospital visit by physician [facility] Radiology Procedure Comment on above: Urinary retention [R 33.9] Start: 01-11-2025 End: 01-11-2025 Patient encounter procedure 01/11/2025 4:30 PM EDT Office Visit Urology [address] [facility] [place] [address] Sinai Castanon MD [address] [place] [address] 6 week follow up SPT Placement Urology Comment on above: 6 week follow up SPT Placement Start: 01-11-2025 End: 01-11-2025 ambulatory 01/11/2025 3:30 PM EDT Results Only Samm [facility] [address] [place] [address] Samm [facility] Start: 01-09-2025 End: 04-10-2025 Bacteria identified in Urine by Culture BACTERIAL CULTURE, URINE Microbiology Routine Urinary retention Preop testing Expected: 01/09/2025, Expires: 04/10/2025 [facility] Comment on above: Expected: 01/09/2025 , Expires: 04/10/2025 Start: 01-09-2025 End: 04-10-2025 Basic metabolic 2000 panel - Serum or Plasma BASIC METABOLIC PANEL Lab Routine Urinary retention Preop testing Expected: 01/09/2025, Expires: 04/10/2025 [facility] Comment on above: Expected: 01/09/2025 , Expires: 04/10/2025 Start: 01-09-2025 End: 04-10-2025 CBC panel - Blood by Automated count COMPLETE BLOOD COUNT Lab Routine Urinary retention Preop testing Expected: 01/09/2025, Expires: 04/10/2025 [facility] Work Phone: Comment on above: Expected: 01/09/2025 , Expires: 04/10/2025 Start: 12-07-2024 End: 12-07-2024 Patient encounter procedure 12/07/2024 8:00 AM EDT Office Visit [facility] [address] [place] [address] Bola Cooley MD [address] [place] [address] follow up 6/5 per provider at [address] [place] [address] Comment on above: follow up 6/5 per pr ovider at Start: 11-14-2024 End: 11-14-2024 Patient encounter procedure Urology Comment on above: Pelvic Floor Dysfunc tions Pt. records in Dr. Nedra magaña; already sent to scanning; Pelvic Floor Dysfunctions Start: 11-14-2024 End: 11-14-2024 Admission to same day surgery center 11/14/2024 9:30 AM EDT - 11/14/2024 10:30 AM EDT Surgery Angio [address] [place] [address] PATTERN DRUM MAKER [address] [place] [address] SPINAL PUNCTURE LUMBAR DIAGNOSTIC Angio Comment on above: SPINAL PUNCTURE LUMB AR DIAGNOSTIC Start: 11-14-2024 End: 11-14-2024 Diagnostic lumbar spinal puncture [facility] ANGIO HB6 Start: 11-14-2024 Subsequent hospital visit by physician 11/14/2024 9:30 AM EDT Hospital Encounter Angio [address] [place] [address] [employer] [employer] [address] [place] [address] White matter abnormality on MRI of brain [R90.82] Angio Comment on above: White matter abnorma lity on MRI of brain [R90.82] Start: 11-02-2024 End: 02-01-2025 25-hydroxyvitamin D3 [Mass/volume] in Serum or Plasma [facility] Comment on above: Expected: 11/02/2024 (Approximate), Expires: 02/01/2025 Start: 11-02-2024 End: 02-01-2025 Borrelia burgdorferi IgG and IgM panel - Serum [facility] Comment on above: Expected: 11/02/2024 , Expires: 02/01/2025 Start: 11-02-2024 End: 02-01-2025 WOOL BROKER DEMYELINATING DISEASE EVALUATION, SERUM [facility] Comment on above: Expected: 11/02/2024 , Expires: 02/01/2025 Start: 11-02-2024 End: 02-01-2025 Glucose [Mass/volume] in Serum or Plasma [facility] Comment on above: Expected: 11/02/2024 , Expires: 02/01/2025 Start: 11-02-2024 End: 02-01-2025 HIV 1+2 Ab [Presence] in Serum or Plasma by Immunoassay [facility] Work Phone: Comment on above: Expected: 11/02/2024 , Expires: 02/01/2025 Start: 03-29-2024 End: 03-29-2024 Patient encounter procedure [facility] Comment on above: Arrived Start: 03-08-2024 End: 03-08-2024 Patient encounter procedure 03/08/2024 2:50 PM EDT Office Visit [facility] [address] [place] [address] Miky Delgado DO [address] [facility] [place] [address] Arrived [facility] Comment on above: Arrived Start: 03-05-2024 Covid-19 Vaccine ( season) Covid-19 Vaccine () [facility] Start: 03-05-2024 Influenza vaccination Influenza Vacc ine (#1) [facility] Start: 01-20-2024 HPV Vaccine (1 - 3-d ose SCDM series) HPV Vaccine (1 - 3-dose SCDM series) [facility] Start: 03-05-2022 Influenza vaccination [facility] Start: 09-02-2021 End: 09-02-2021 Telemedicine consultation with patient 09/02/2021 Telemedicine Gynecology Miryam Giraldo, LEAD MOBILE DEVELOPER [address] [facility] [place] [place] [address] [facility] Physician [facility] Gynecology Start: 09-01-2021 End: 09-01-2021 Telemedicine consultation with patient 09/01/2021 Telemedicine Gynecology Miryam Giraldo, LEAD MOBILE DEVELOPER [address] [facility] [place] [place] [address] [facility] Physician [facility] Gynecology Start: 06-24-2021 End: 06-24-2021 Patient encounter procedure 06/24/2021 Appointment Radiology Vaishali Turner II, MD [address] [facility] [address] [place] [address] [facility] MRI Start: 06-02-2021 End: 06-02-2021 Patient encounter procedure 06/02/2021 Office Visit Gynecology Presley Baca MD [address] [place] [address] [facility] Gynecology Start: 05-19-2021 End: 05-19-2021 Patient encounter procedure 05/19/2021 Office Visit Gynecology Presley Baca MD [address] [place] [address] [facility] Gynecology Start: 05-16-2021 End: 05-16-2021 Admission to same day surgery center 05/16/2021 Surgery Presley Baca MD [address] [place] [address] ROBOTIC ASSISTED LAPAROSCOPIC HYSTERECTOMY, BILATERAL SALPINGECTOMY, EXCISION OF ENDOMETRIOSIS ERAS PROTOCOL GLYCEMIC CONTROL TAILINGS DAM PUMPER [facility] Periop Comment on above: ROBOTIC ASSISTED LAP AROSCOPIC HYSTERECTOMY, BILATERAL SALPINGECTOMY, EXCISION OF ENDOMETRIOSIS ERAS PROTOCOL GLYCEMIC CONTROL TAILINGS DAM PUMPER Start: 05-16-2021 End: 05-16-2021 Anesthesia consultation 05/16/2021 Anesthesia Event Reji Lozoya, GIGI [address] [address] [facility] Periop Start: 05-16-2021 End: 05-16-2021 HYSTERECTOMY TOTAL ROBOTIC XI HYSTERECTOMY TOTAL ROBOTIC XI Endometriosis Pelvic pain in female Dysmenorrhea Female pelvic congestion syndrome 05/16/2021 7:30 AM EST [facility] Start: 05-16-2021 Subsequent hospital visit by physician 05/16/2021 Hospital Encounter Presley Baca MD [address] [place] [address] [facility] Periop Start: 03-05-2021 Influenza vaccination Sequenti al Influenza Vaccine (#1) [facility] Start: 02-19-2021 End: 02-19-2021 Patient encounter procedure 02/19/2021 Procedure visit Gynecology Presley Baca MD [address] [facility] [place] [address] [facility] Gynecology Start: 07-24-2020 End: 07-24-2020 Hospital Encounter [facility] [place] Comment on above: CYSTOSCOPY HYDRODIST ENTION WITH DMSO Start: 07-22-2020 End: 07-22-2021 CBC CBC Lab Routine Pre-op testing Expected: 07/22/2020, Expires: 07/22/2021 [facility] [place] Comment on above: Expected: 07/22/2020 , Expires: 07/22/2021 Start: 07-19-2020 End: 07-19-2021 COVID-19 COVID-19 Lab Routine Preop testing Expected: 07/19/2020, Expires: 07/19/2021 [place] Comment on above: Expected: 07/19/2020 , Expires: 07/19/2021 Start: 03-05-2020 Influenza vaccination Flu vaccine (# 1) [place] Start: 04-17-2019 End: 04-17-2019 Office Visit 04/17/2019 Office Visit Obstetrics and Gynecology Ronny Modi MD [address] [place] [address] [facility] 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 Start: 03-05-2019 Influenza vaccination Flu vaccine (# 1) [place] Start: 02-16-2018 DTaP/Tdap/Td vaccine (7 - Td) DTaP/Tdap/Td vaccine (7 - Td) [place] Start: 2018 Cervical cancer screen Cervical canc er screen [place] Start: 2018 Screening for malign ant neoplasm of cervix [facility] Start: 01-20-2016 Hepatitis B Vaccine (1 of 3 - 19+ 3-dose series) Hepatitis B Vaccine (1 of 3 - 19+ 3-dose series) [facility] Start: 01-20-2016 Urine microalbumin profile DTaP,Tdap,Td Vaccine (1 - Tdap) [facility] Start: 2015 Anxiety Screening Anxiety Screening [facility] Start: 2015 Depression Screening Depression Scre ening [facility] Start: 2015 [facility] Start: 2015 HIV screening HIV Screening [facility] Start: 2013 Chlamydia screen Chlamydia screen [place], [place] Start: 2013 Screening for Chlamy adeline trachomatis Chlamydia screen [place], [place] Start: 01-20-2012 HIV screen HIV screen [place], [place] Start: 01-20-2012 HIV screening [facility] Start: 2009 COVID-19 Vaccine (1) COVID-19 Vaccin e (1) [facility] Start: 2009 Depression screening using PHQ-9 (Patient Health Questionnaire 9) score Depression Screening (PHQ9) [facility] Start: 2002 COVID-19 Vaccine (1) COVID-19 Vaccin e (1) [facility] Start: 01-20-2000 History and physical examination, annual for health maintenance Wellness Visit [facility] Start: 1997 COVID-19 Vaccine (#1) COVID-19 Vacci ne (#1) [facility] Start: 1997 Hepatitis C screening Hepatitis C sc beren [place], [place] Start: 1997 Screening for Chlamy adeline trachomatis Chlamydia Screening [facility] Start: 1997 Screening for malign ant neoplasm of cervix Pap Smear [facility] End: 04-07-2019 Bacteria identified Cx Nom (U) Urine Culture Microbiology Routine Once for 1 Occurrences starting 04/07/2019 until 04/07/2019 [place] Comment on above: Once for 1 Occurrenc es starting 04/07/2019 until 04/07/2019 Bacteria identified Cx Nom (U) Urine Culture Microbiology Routine 04/07/2019 12:20 PM EDT [place] Bacteria identified in Urine by Culture BACTERIAL CULTURE, URINE Microbiology Routine Pelvic pain in female 12/19/2024 1:25 PM EDT [facility] BACTERIAL VAGINOSIS NAAT BACTERI AL VAGINOSIS NAAT Lab Routine Vaginal pain 12/19/2024 1:24 PM EDT [facility] End: 07-24-2020 Blood glucose - POCT Blood glucose - POCT Point of Care Testing Routine One Time for 1 Occurrences starting 07/24/2020 until 07/24/2020 [place] Comment on above: One Time for 1 Occur rences starting 07/24/2020 until 07/24/2020 DAISY/TRICHOMONAS NAAT DAISY /TRICHOMONAS NAAT Lab Routine Vaginal pain 12/19/2024 1:24 PM EDT [facility] Work Phone: CHLAMYDIA TRACHOMATI S (GENITO/STI) CHLAMYDIA TRACHOMATIS (GENITO/STI) Lab Routine STD exposure Ordered: 03/29/2024 [facility] Comment on above: Ordered: 03/29/2024 CHLAMYDIA TRACHOMATI S (GENITO/STI) CHLAMYDIA TRACHOMATIS (GENITO/STI) Lab Routine Vaginal discharge Ordered: 07/18/2024 [facility] Comment on above: Ordered: 07/18/2024 End: 07-20-2020 COVID-19 COVID-19 Lab Routine Once for 1 Occurrences starting 07/20/2020 until 07/20/2020 [place] Comment on above: Once for 1 Occurrenc es starting 07/20/2020 until 07/20/2020 COVID-19 COVID-19 Lab Rou kaur 07/20/2020 7:50 AM EST [place] End: 04-07-2019 Culture blood #1 Culture blood #1 Microbiology STAT One Time for 1 Occurrences starting 04/07/2019 until 04/07/2019 [place] Comment on above: One Time for 1 Occur rences starting 04/07/2019 until 04/07/2019 Culture blood #1 Culture blood # 1 Microbiology STAT 04/07/2019 12:55 PM EDT [place] End: 04-07-2019 Culture blood #2 Culture blood #2 Microbiology STAT One Time for 1 Occurrences starting 04/07/2019 until 04/07/2019 [place] Comment on above: One Time for 1 Occur rences starting 04/07/2019 until 04/07/2019 Culture blood #2 Culture blood # 2 Microbiology STAT 04/07/2019 1:01 PM EDT [facility] Cervical or vaginal smear or scraping study Pap Smear Pathology and Cytology Routine Well woman exam with routine gynecological exam Ordered: 03/29/2024 [facility] Comment on above: Ordered: 03/29/2024 HYSTERECTOMY TOTAL ROBOTIC XI HYSTERECTOMY TOTAL ROBOTIC XI Endometriosis Pelvic pain in female Dysmenorrhea Female pelvic congestion syndrome [facility] Insertion/rplcmt peripheral/gastric npgr INSRT NSTIM INTERSTIM PROCEDURE STAGE 2 W/ POCKET CREATE AND CONNECT BTWN ELCTRD ARRAY AND PULSE GENERATOR OR RECVR Urinary retention [facility] End: 04-07-2019 Lactate, Sepsis Lactate, Sepsis Lab Timed Now Then Every 2hr for 2 Occurrences starting 04/07/2019 until 04/07/2019, 1 completed [facility] Comment on above: Now Then Every 2hr f or 2 Occurrences starting 04/07/2019 until 04/07/2019, 1 completed Neisseria gonorrhoea e DNA [Presence] in Unspecified specimen by MAVERICK with probe detection Neisseria gonorrhea DNA probe, direct Lab Routine STD exposure Ordered: 03/29/2024 [facility] Comment on above: Ordered: 03/29/2024 Neisseria gonorrhoea e DNA [Presence] in Unspecified specimen by MAVERICK with probe detection Neisseria gonorrhea DNA probe, direct Lab Routine Vaginal discharge Ordered: 07/18/2024 [facility] Comment on above: Ordered: 07/18/2024 Oxygen therapy [[facility] Data Set] Initiate Oxygen Therapy Protocol Respiratory Care Routine Daily until discontinued starting 07/24/2020 [facility] Comment on above: Daily until disconti nued starting 07/24/2020 Phase I & II - meter ed glucose Phase I & II - metered glucose Point of Care Testing Routine As Needed until discontinued starting 07/24/2020 [facility] Comment on above: As Needed until disc ontinued starting 07/24/2020 End: 07-24-2020 , urine POCT , urine POCT Point of Care Testing Routine One Time for 1 Occurrences starting 07/24/2020 until 07/24/2020 [facility] Comment on above: One Time for 1 Occur rences starting 07/24/2020 until 07/24/2020 End: 12-08-2025 RF Guidance for drainage and placement of suprapubic catheter of Urinary bladder IR SUPRAPUBIC TUBE EXCHANGE Radiology Routine Urinary retention Every 6 weeks for 8 Occurrences starting 12/08/2024 until 12/08/2025 [facility] Work Phone: Comment on above: Every 6 weeks for 8 Occurrences starting 12/08/2024 until 12/08/2025 RF Guidance for inje ction of Lumbar spine IR LUMBAR PUNCTURE DIAGNOSTIC () Radiology Routine White matter abnormality on MRI of brain Ordered: 11/02/2024 [facility] Comment on above: Ordered: 11/02/2024 RF Urinary bladder V iews W contrast via suprapubic tube IR SUPRAPUBIC TUBE PLACEMENT Radiology Routine Urinary retention Ordered: 11/14/2024 [facility] Work Phone: Comment on above: Ordered: 11/14/2024 SURESWAB(R) ADVANCED VAGINITIS PLUS, TMA SURESWAB(R) ADVANCED VAGINITIS PLUS, TMA Pathology and Cytology Routine Vaginal discharge Ordered: 03/29/2024 [facility] Work Phone: Comment on above: Ordered: 03/29/2024 SURESWAB(R) ADVANCED VAGINITIS PLUS, TMA SURESWAB(R) ADVANCED VAGINITIS PLUS, TMA Pathology and Cytology Routine Vaginal discharge Ordered: 07/18/2024 [facility] Work Phone: Comment on above: Ordered: 07/18/2024 Immunizations Immunization Date Immunization Notes Care Provider Agus chavez NEGATED: Highlighted row has not occurred!09-22-2024 influenza virus vaccine, unspecified formulation BEBETO CARTY [facility] Emilio NEGATED: Highlighted row has not occurred!08-23-2023 influenza virus vaccine, unspecified formulation BEBETO CARTY [facility] Emilio Comment on above: Result Comment: pt s iick today NEGATED: Highlighted row has not occurred!06-02-2022 influenza virus vaccine, unspecified formulation Darlene Burr [facility] Jose NEGATED: Highlighted row has not occurred!06-02-2022 SARS-CoV-2 mRNA (noamines 5y-11y) vaccine Darlene Burr [facility] [place] Payers Date Payer Category Payer [place] Blue Shield 1.2.8 [id number] 2023 Unknown [id number] 2023 Unknown [id number] 2019 Private Health Insurance AETNA A ETNA CHOICE POS/POSII/PREMIER CARE/PREMIER CARE PLUS [id number] 2019-Present [phone] [address] [place] [address] [id number] .[id number] 2019 Private Health Insurance 1.2 .[id number] .[id number] 2018 Private Health Insurance AETNA A ETNA [id number] 2018-Present [phone] [address] [place] [address] xxxxxxxxxx 1.2.840.222461.1.13.239.2 .[id number] 2018 Private Health Insurance [id number] 2018 Unknown 1997 Unknown [id number] 2.16.840.1.123599.3.579.2 .196 1997 Unknown [id number] 2.16.840.1.005260.3.579.2 .173 1997 Unknown [id number] 2.16840.1.872766.3.579.2 .173 1997 Unknown [id number] 2.16.840.1.318471.3.579.2 .173 1997 Unknown [id number] 2.16.840.1.633818.3.579.2 .175 1997 Unknown [id number] 2.16.840.1.014005.3.579.2 .175 1997 Unknown [id number] 2.16.840.1.813305.3.579.2 .177 1997 Unknown [id number] 2.16.840.1.522230.3.579.2 .900 1997 Unknown [id number] 2.16.840.1.910069.3.579.2 .902 1997 Unknown [id number] 2.16.840.1.570309.3.579.2 .1997 Unknown [id number] 2.16.840.1.734709.3.579.2 .1997 Unknown [id number] 2.16.840.1.950545.3.579.2 .1997 Unknown [id number] 2.16.840.1.427427.3.579.2 .1997 Unknown [id number] 2.16.840.1.523638.3.579.2 .1997 Unknown [id number] 2.16.840.1.691248.3.579.2 .1997 Unknown [id number] 2.16.840.1.847340.3.579.2 .1997 Unknown [id number] 2.16.840.1.848685.3.579.2 .1997 Unknown [id number] 2.16.840.1.734246.3.579.2 .1997 Unknown [id number] 2.16.840.1.768041.3.579.2 .1997 Unknown [id number] 2.16.840.1.782526.3.579.2 .727 1997 Unknown [id number] 2.16.840.1.214467.3.579.2 .1997 Unknown [id number] 2.16.840.1.375954.3.579.2 .1997 Unknown [id number] 2.16.840.1.427662.3.579.2 .1997 Unknown [id number] 2.16.840.1.110795.3.579.2 .1997 Unknown [id number] 2.16.840.1.656588.3.579.2 .1997 Unknown [id number] 2.16.840.1.595469.3.579.2 .1258 1997 Unknown [id number] 2.16.840.1.919495.3.579.2 .1258 1997 Unknown [id number] 2.16.840.1.282708.3.579.2 .1258 1997 Unknown [id number] 2.16.840.1.284731.3.579.2 .1258 1997 Unknown [id number] 2.16.840.1.238084.3.579.2 .1258 1997 Unknown [id number] 2.16.840.1.200136.3.579.2 1997 Unknown [id number] 2.16.840.1.624396.3.579.2 1997 Unknown [id number] 2.16.840.1.772861.3.579.2 1997 Unknown [id number] 2.16.840.1.900687.3.579.2 1997 Unknown [id number] 2.16.840.1.539167.3.579.2 1997 Unknown [id number] 2.16.840.1.531652.3.579.2 1997 Unknown [id number] 2.16.840.1.980695.3.579.2 1997 Unknown [id number] 2.16.840.1.065270.3.579. 1997 Unknown [id number] 2.16.840.1.375749.3.579.2 1997 Unknown [id number] 2.16.840.1.851964.3.579.2 1997 Unknown [id number] 2.16.840.1.456840.3.579.2 1997 Unknown [id number] 2.16.840.1.879780.3.579. 1997 Unknown [id number] 2.16.840.1.238116.3.579. 1997 Unknown [id number] 2.16.840.1.527274.3.579. 1997 Unknown [id number] 2.16.840.1.055459.3.579. 1997 Unknown [id number] 2.16.840.1.242515.3.579.2 1997 Unknown [id number] 2.16.840.1.327793.3.579.2 1997 Unknown [id number] 2.16.840.1.283318.3.579.2 1997 Unknown [id number] 2.16.840.1.352479.3.579.2 1997 Unknown [id number] 2.16.840.1.183284.3.579.2 1997 Unknown [id number] 2.16.840.1.324509.3.579.2 1997 Unknown [id number] 2.16.840.1.085974.3.579.2 .727 1997 Unknown [id number] 2.16.840.1.248662.3.579.2 .1997 Unknown [id number] 2.16.840.1.091987.3.579.2 .1997 Unknown [id number] 2.16.840.1.509250.3.579.2 .1997 Unknown [id number] 2.16.840.1.207087.3.579.2 .1997 Unknown [id number] 2.16.840.1.657610.3.579.2 .1997 Unknown [id number] 2.16.840.1.596538.3.579.2 .1997 Unknown [id number] 2.16.840.1.182756.3.579.2 .1997 Unknown [id number] 2.16.840.1.776992.3.579.2 .1997 Unknown [id number] 2.16.840.1.720469.3.579.2 .1997 Unknown [id number] 2.16.840.1.629466.3.579.2 .1997 Unknown [id number] 2.16.840.1.587773.3.579.2 .727 Social History Date Type Detail Facility Start: 03-31-2017 End: 03-23-2025 Tobacco smoking status NHIS Never smoker [place] Start: 03-31-2017 End: 12-19-2024 Alcohol intake No [place] Start: 1997 Sex Assigned At Not on file [place] Start: 07-18-2020 End: 11-07-2024 Tobacco use and exposure Never used [place] Start: 07-18-2020 End: 07-24-2020 Alcohol intake Current non-drinker of alcohol (finding) [place] Exposure to SARS-CoV -2 (event) Not sure [facility] [place] Start: 05-13-2021 End: 08-14-2021 Alcohol intake Ex-drinker (finding) [facility] Start: 05-13-2021 History SDOH Alcohol Comment very rare [facility] Start: 02-12-2021 End: 12-19-2024 Cigarette pack-years [facility] Start: 09-25-2024 Tobacco smoking status Never [facility] [place] Start: 2024 End: 03-08-2024 Alcoholic beverage intake Current drinker of alcohol (finding) [facility] Start: 1995 Sex assigned at Female [facility] Start: 01-12-2024 Gender identity Identifies as female gender (finding) [facility] Start: 01-12-2024 Sexual orientation Bisexual (finding) [facility] Tobacco Current vaping o r e-cigarette use Smokeless Tobacco Use:. Vaping [facility] Tobacco smoking status [facility] Sex Female (finding) [facility] Tobacco smoking stat [facility] Tobacco smoking consumption unknown [facility] Start: 12-07-2024 Sexual orientation Heterosexual (finding) [facility] Medical Equipment Procedure Code Equipment Code Equipment Origin al Text Equipment Identifier Dates Cath 5in Expansi on On-Q Silversoaker - [id number] Start: 05-16-2021 Kit 10ml Tisseel Frozen W/ Prima Syringe - [id number] Start: 05-16-2021 Goals Date Patient Goal Desired Activity /State Personal health goal Functional Status Date Assessment Result Facility 11-16-2024 Functional Status N/A [facility] 10-13-2024 Functional Status N/A [facility] 09-17-2024 Functional Status N/A [facility] 09-15-2024 Functional Status N/A [facility] 08-30-2024 Functional Status No [facility] 07-27-2024 Functional Status N/A [facility] 06-27-2024 Functional Status N/A [facility] 06-06-2024 Functional Status N/A [facility] 03-17-2024 Functional Status N/A [facility] 02-23-2024 Functional Status N/A [facility] 11-08-2023 Functional Status N/A [facility] 11-04-2023 Functional Status N/A [facility] 09-03-2023 Functional Status N/A [facility] 08-23-2023 Functional Status N/A [facility] 08-12-2023 Functional Status N/A [facility] 01-02-2023 Functional Status N/A [facility] 10-26-2022 Functional Status N/A [facility] 10-06-2022 Functional Status N/A [facility] 09-28-2022 Functional Status N/A [facility] 06-15-2022 Functional Status N/A [facility] 06-02-2022 Functional Status N/A [facility] 04-15-2022 Functional Status N/A [facility] 03-05-2022 Functional Status N/A [facility] 01-09-2022 Functional Status N/A [facility] Clinical Notes 02-16-2021 to 04-06-2025 Shruti Malone RN - 03/09/2025 3:31 PM EDTTelephone Encounter - Lucina Pierre LPN - 03/08/2025 2:21 PM EDTTelephone Encounter - Lucina Pierre LPN - 03/08/2025 2:21 PM EDT Note Date & Type Note Facility 04-06-2025 Note HNO ID: [id number] Author: LISA HERNANDEZ, RN Service: ? Author Type: Registered Nurse Type: Progress Notes Filed: 04/06/2025 16:28 Note Text: Pt arrived to appointment ambulatory and accompanied by . Pt reporting burning with irritation, purulent drainage around SPT tube, symptoms of a yeast infection and complaining that her neuro stimulator was uncomfortable and felt like it was falling down her lower back (had placed 03/28/25 has next surgery for it scheduled on 04/11/[address] Castanon). Burning with urination: pt reports this started about 2 days after surgery on 03/28/25 and has continued to get worse, now reporting she also has some purulent drainage around capped SPT site and discomfort. SPT tube was changed on 03/28/25 and is currently capped. Since patient is now voiding advised we could collect a culture from midstream sample. Assessed patient SPT site and there was a small amount of drainage, very slight redness around the left lower side. Advised if patient does have a UTI present this could also be the cause of the SPT irritation. Urine culture was collected via midstream and sent to lab. Let patient know we should have culture results on Wednesday. Yeast infection symptoms: Pt reports she had IV antibiotics during recent surgery. She developed symptoms of vaginal discomfort, itching and white discharge a couple days later. She reports she did do a 3 day course of monistat with some improvement but since then symptoms have returned and are much worse. Asking for diflucan which has helped in the pasted. Will route to female urol pool. The neuro stimulator did appear that it was slipping down from original position. The wire appeared to still be intact and not dislodged at all but the box was low down toward her buttock. Pt had picture of where it was initially after procedure. Had patient take a picture with her phone of what it looked like at this time. I adjusted the position of the box slightly and reinforced the tegaderm dressing with a new dressing to hold in position better. Pt reports that it feels much more secure with the reinforced dressing and less uncomfortable Advised to send images through [employer] so we have a a resource if needed and to update us throughout the weekend if it slips down again or if she feels it is not working properly. Pt has a Tegaderm at home that I advised to use to reinforce dressing again if needed. [facility] 04-03-2025 Note HNO ID: [id number] Author: JING ESTES RN Service: ? Author Type: Registered Nurse Type: Progress Notes Filed: 04/03/2025 14:40 Note Text: Patient reports 80% improvement noted by patient during SNM Stage 1 trial. Patient is very happy results and able to void more own her own. It has also helped improve her bowel movements as well. Diaries will be uploaded into her chart today or by tomorrow. Jing BOBO, BSN [facility] 03-09-2025 Note HNO ID: [id number] Author: SHRUTI MALONE RN Service: ? Author Type: Registered Nurse Type: Progress Notes Filed: 03/09/2025 16:10 Note Text: [facility] Patient ID with two (2) identifiers verified by: Shruti Malone RN Allergies reviewed and updated: Yes Current pain intensity is: 0 on a 0-10 pain scale. Any concerns about safety in the home/falls: Not at risk for falls REASON FOR VISIT: Catheter Change:Suprapubic Procedure: Extra glydo given prior to ortiz removal. The Suprapubic indwelling ortiz was removed without difficulty. The new 16 F straight ortiz was inserted using sterile technique. The balloon was inflated to 7cc with sterile water. Irrigated with approximately 60cc NS, clear/yellow urine returned. Catheter attached to overnight bag and secured to right thigh with rubén strap. Patient supplied clean/dry dressing for stoma, placed by patient with assistance from significant other. The patient tolerated the procedure well. urine noted in bag prior to patient leaving exam room. Comments: homegoing supplies given to patient Plan:Return on 03/28 for surgery Shruti Malone RN Electronically signed [facility] 03-09-2025 History of Presen t illness Narrative [facility] Patient ID with two (2) identifiers verified by: Shruti Malone RN Allergies reviewed and updated: Yes Current pain intensity is: 0 on a 0-10 pain scale. Any concerns about safety in the home/falls: Not at risk for falls REASON FOR VISIT: Catheter Change:Suprapubic Procedure: Extra glydo given prior to ortiz removal. The Suprapubic indwelling ortiz was removed without difficulty. The new 16 F straight ortiz was inserted using sterile technique. The balloon was inflated to 7cc with sterile water. Irrigated with approximately 60cc NS, clear/yellow urine returned. Catheter attached to overnight bag and secured to right thigh with rubén strap. Patient supplied clean/dry dressing for stoma, placed by patient with assistance from significant other. The patient tolerated the procedure well. urine noted in bag prior to patient leaving exam room. Comments: homegoing supplies given to patient Plan:Return on 03/28 for surgery Shruti Malone RN documented in this encounter [facility] 03-08-2025 Telephone encounter Note Spoke to patient, SPT is draining. Output adequate. Denies fever chills. Last SPT change was 01/27/25. Patient scheduled for NV 03/09/25 at 3:15 [facility] 03-08-2025 Miscellaneous Notes Spoke to patient, SPT is draining. Output adequate. Denies fever chills. Last SPT change was 01/27/25. Patient scheduled for NV 03/09/25 at 3:15 Patient needs an appt to replace her super pubic catheter. It needs to be done this week. She can be reached at [phone]. documented in this encounter [facility] 03-06-2025 Telephone encounter Note Patient needs an appt to replace her super pubic catheter. It needs to be done this week. She can be reached at [phone]. [facility] 02-26-2025 Telephone encounter Note Patient calling regarding decreased urine output from her supra pubic catheter along with bloating and pain. Conferenced to [facility] coining press operator, Teresa, to speak with provider director of conservation for Dr. Tanisha Castanon/Urology. [facility] 02-26-2025 Miscellaneous Notes Patient calling regarding decreased urine output from her supra pubic catheter along with bloating and pain. Conferenced to [facility] coining press operator, Teresa, to speak with provider director of conservation for Dr. Tanisha Castanon/Urology. documented in this encounter [facility] 01-27-2025 Note ED Patient Education Note Urology Suprapubic Catheter Replacement Suprapubic catheter replacement is a procedure to remove an old catheter and insert a new, clean catheter. A suprapubic catheter is a soft tube that drains pee (urine) from the bladder into a collection bag outside the body. The catheter is inserted into the bladder through a small opening in the lower abdomen, near the center of the body, above the pubic bone (suprapubicarea). There is a tiny balloon filled with germ-free (sterile) water on the end of the catheter that is in the bladder. The balloon helps to keep the catheter in place. If you need to wear a catheter for a long period of time, you may be instructed to replace the catheter yourself. Usually, suprapubic catheters need to be replaced every 4?6 weeks, or as often as told by your health care provider. What are the risks? Your provider will talk with you about risks. These may include failure to get the catheter into the bladder. What happens before the procedure? You may have an exam or testing, including a blood or pee sample. ??? Ask your provider what steps will be taken to help prevent infection. What happens during the procedure? You will lie on your back. ??? The water from the balloon will be removed using a syringe. ??? The catheter will be slowly removed. ??? Lubricant will be applied to the end of the new catheter that will go into your bladder. ??? The new catheter will be inserted through the opening in your abdomen. Your provider will slide the catheter into your bladder. ??? Your provider will wait for some pee to start flowing through the catheter. When this happens, a syringe will be used to fill the balloon with sterile water. ??? A collection bag will be attached to the end of the catheter. The procedure may vary among providers and hospitals. What can I expect after procedure? After the procedure, it is common to have some discomfort around the opening in your abdomen. Follow these instructions at home: Caring for the skin around the catheter Use a clean washcloth and soapy water to clean the skin around your catheter every day. Pat the area dry with a clean towel. ??? Do not pull on the catheter. ??? Do not use ointment or lotion on this area unless told by your provider. ??? Check the skin around the catheter every day for signs of infection. Check for: ? Redness, swelling, or pain. ? Fluid or blood. ? Warmth. ? Pus or a bad smell. Caring for the catheter ??? Clean the catheter with soap and water as often as told by your provider. ??? Always make sure there are no twists, curls, or kinks in the catheter. ??? As soon as you are able to move, you may use a leg bag to collect the pee. ? Make sure that the tubing is straight and has no kinks. ? Wrap an kaur bandage gently over the tubing and around your leg to minimize the risk of the bag getting pulled out. Emptying the collection bag Empty the large collection bag every 8 hours. Empty the small collection bag when it is about ? full. To empty your large or small collection bag, take the following steps: ??? Always keep the bag below the level of the catheter. This keeps pee from flowing backward into the catheter. ??? Hold the bag over the toilet or another container. Turn the valve (spigot) at the bottom of the bag to empty the pee. ? Do not touch the opening of the spigot. ? Do not let the opening touch the toilet or container. ??? Close the spigot tightly when the bag is empty. Cleaning the collection bag ??? Wash your hands with soap and water for at least 20 seconds. If soap and water are not available, use hand credit collections specialist. ??? Disconnect the bag from the catheter and immediately attach a new bag to the catheter. ??? Empty the used bag completely. ??? Clean the used bag according to the die engraving supervisor's instructions, or as told by your provider. ??? Let the bag dry completely, and put it in a clean plastic bag before storing it. General instructions ??? Always wash your hands before and after caring for your catheter and collection bag. Use soap and water. If soap and water are not available, use hand credit collections specialist. ??? Always make sure there are no leaks in the catheter or collection bag. ??? Drink enough fluid to keep your pee pale yellow. ??? If you were prescribed an antibiotic medicine, take it as told by your provider. Do not stop taking the antibiotic even if you start to feel better. ??? Do not take baths, swim, or use a hot tub. ??? Keep all follow-up visits. Your provider who will monitor any symptoms and may need to change your treatment. Contact a health care provider if: ??? You have signs of infection around your catheter opening. ??? You have a fever or chills. ??? There is a change in the color or smell of your pee. ??? You have vomiting that does not stop. ??? You have back pain. ??? You h (more content not included)... [facility] 01-26-2025 Note Addended by: MATTEO SNOW on: 01/26/2025 11:15 AM Modules accepted: Orders [facility] 01-26-2025 Miscellaneous Notes Addended by: MATTEO SNOW on: 01/26/2025 11:15 AM Modules accepted: Orders Patient contacted, identity confirmed NGB on SPT Complaining of irritative LUTS, burning at urethra and bladder spasms, pain at SPT intrance with somt purulent discharge. Had Positive UC before but was asymptomatic. Informed to do UA and UC, IF UA have signs of UTI can start Macrobid, To use Bacitracin ointment around catheter insertion site. Cultures to be followed. Matteo Snow MD Clinical fellow Returning phone call to patient regarding symptoms. States purulent/bloody drainage from around stoma. Symptoms started 4-5 days ago. Denies any fevers/chills or issues with constipation. SPT tubing anchored. Good UOP - clear yellow urine. C/o spasms, urethral pain. Had urethral spotting overnight. Chart routed to female urology pool for recommendations. Will update patient accordingly. Little Ziegler RN Patient calling Had SPT changed 2 weeks ago Has noticed redness, tenderness around site Also began having pain in area with movement since earlier this week Yesterday had some blood and yellow/green drainage with foul odor from around stoma Had to change her dressing twice No fever Urine output has been good Asking for recommendations Patient can be reached at home number, may leave a message GO TO THE EMERGENCY ROOM OR CALL 911 IF: * You develop any new symptoms * Your condition worsens * You are concerned or anxious about your condition for any other reason. If you have any questions, call back. documented in this encounter [facility] 01-26-2025 Telephone encounter Note Patient contacted, identity confirmed NGB on SPT Complaining of irritative LUTS, burning at urethra and bladder spasms, pain at SPT intrance with somt purulent discharge. Had Positive UC before but was asymptomatic. Informed to do UA and UC, IF UA have signs of UTI can start Macrobid, To use Bacitracin ointment around catheter insertion site. Cultures to be followed. Matteo Snow MD Clinical fellow [facility] 01-26-2025 Telephone encounter Note Returning phone call to patient regarding symptoms. States purulent/bloody drainage from around stoma. Symptoms started 4-5 days ago. Denies any fevers/chills or issues with constipation. SPT tubing anchored. Good UOP - clear yellow urine. C/o spasms, urethral pain. Had urethral spotting overnight. Chart routed to female urology pool for recommendations. Will update patient accordingly. Little Ziegler RN [facility] 01-26-2025 Telephone encounter Note Patient calling Had SPT changed 2 weeks ago Has noticed redness, tenderness around site Also began having pain in area with movement since earlier this week Yesterday had some blood and yellow/green drainage with foul odor from around stoma Had to change her dressing twice No fever Urine output has been good Asking for recommendations Patient can be reached at home number, may leave a message GO TO THE EMERGENCY ROOM OR CALL 911 IF: * You develop any new symptoms * Your condition worsens * You are concerned or anxious about your condition for any other reason. If you have any questions, call back. [facility] 01-15-2025 Telephone encounter Note The patient was contacted after we received a positive urine culture NGB On SPT. She was due for catheter exchange and urine was sent. Asymptomatic. No need to treat Matteo Snow MD Clinical fellow [facility] Work Phone: 01-15-2025 Miscellaneous Notes The patient was contacted after we received a positive urine culture NGB On SPT. She was due for catheter exchange and urine was sent. Asymptomatic. No need to treat Matteo Snow MD Clinical fellow documented in this encounter [facility] 01-11-2025 History of Presen t illness Narrative [facility] RECONSTRUCTIVE SURGERY HISTORY OF PRESENT ILLNESS: Sinai Lockwood is a 29 year old female here today for a follow up regarding SPT placement with radiology 11/30. She was last seen 12/19, was having vaginal and urethral pain, advised to use overnight bag instead of leg bag. Swabs and culture sent at this time. No improvement with empiric cipro, baclofen suppositories. Macrobid was sent 12/21 and Keflex was sent 12/29 based on culture results. Ucx 12/19 - 1-5k E. Faecalis, <10k rothia mucilaginosa Pt reports improvement in symptoms, pain and drainage around SPT with abx. Now draining well with full size bag. Due for SPT exchange tomorrow with IR. GENERAL REVIEW OF SYSTEMS: GI:SEE HPI GENITOURINARY:SEE HPI HISTORIES: Present Medications: ciprofloxacin HCl (CIPRO) 500 mg tablet Take 1 tablet by mouth every 12 hours. predniSONE (DELTASONE) 10 mg tablet TAKE 4 TABLETS BY MOUTH DAILY FOR 3 DAYS, then 3 TABLETS FOR 3 DAYS, then 2 TABLETS FOR 3 DAYS, then ONE TABLET FOR 3 DAYS DULoxetine (CYMBALTA) 30 mg capsule Take 1 capsule by mouth two times a day. No current facility-administered medications for this visit. Past Family History: FAMILY HISTORY Problem Relation Age of Onset Multiple Sclerosis Other Maternal aunt & great aunt Past Medical History: PAST MEDICAL HISTORY Diagnosis Date Bladder pain BV (bacterial vaginosis) Dysuria Mononeuropathy Muscle spasm Nerve pain OAB (overactive bladder) Pelvic floor dysfunction Urinary retention Past Surgical History: PAST SURGICAL HISTORY Procedure Laterality Date CYSTOSCOPY 09/05/2024 DILATION OF URETHRAL STRICTURE HYSTERECTOMY 2021 TONSILLECTOMY HX Past Social History: Social History Tobacco Use Smoking status: Never Smokeless tobacco: Never Vaping Use Vaping status: Former Quit date: 11/16/2024 PHYSICAL EXAM: VITAL SIGNS:LMP (LMP Unknown) NAD, well appearing SPT site c/d/I, draining clear yellow urine. SPT balloon deflated of 5ml. With some difficulty, the SPT was removed - ridge at tip. New 16F blue silicone catheter was advanced into the bladder without difficulty and the balloon was inflated with 5cc sterile water. The catheter flushed easily. 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 Will do SPT capping during the trial. R/b discussed, IC signed. Has voiding diary - will send via my chart. All questions and concerns were addressed. Sinai Castanon MD documented in this encounter [facility] 01-11-2025 Note HNO ID: [id number] Author: SINAI CASTANON MD Service: ? Author Type: Physician Type: Progress Notes Filed: 01/11/2025 17:44 Note Text: [facility] RECONSTRUCTIVE SURGERY HISTORY OF PRESENT ILLNESS: Sinai Lockwood is a 29 year old female here today for a follow up regarding SPT placement with radiology 11/30. She was last seen 12/19, was having vaginal and urethral pain, advised to use overnight bag instead of leg bag. Swabs and culture sent at this time. No improvement with empiric cipro, baclofen suppositories. Macrobid was sent 12/21 and Keflex was sent 12/29 based on culture results. Ucx 12/19 - 1-5k E. Faecalis, <10k rothia mucilaginosa Pt reports improvement in symptoms, pain and drainage around SPT with abx. Now draining well with full size bag. Due for SPT exchange tomorrow with IR. GENERAL REVIEW OF SYSTEMS: GI:SEE HPI GENITOURINARY:SEE HPI HISTORIES: Present Medications: ciprofloxacin HCl (CIPRO) 500 mg tablet Take 1 tablet by mouth every 12 hours. predniSONE (DELTASONE) 10 mg tablet TAKE 4 TABLETS BY MOUTH DAILY FOR 3 DAYS, then 3 TABLETS FOR 3 DAYS, then 2 TABLETS FOR 3 DAYS, then ONE TABLET FOR 3 DAYS DULoxetine (CYMBALTA) 30 mg capsule Take 1 capsule by mouth two times a day. No current facility-administered medications for this visit. Past Family History: FAMILY HISTORY Problem Relation Age of Onset Multiple Sclerosis Other Maternal aunt AND great aunt Past Medical History: PAST MEDICAL HISTORY Diagnosis Date Bladder pain BV (bacterial vaginosis) Dysuria Mononeuropathy Muscle spasm Nerve pain OAB (overactive bladder) Pelvic floor dysfunction Urinary retention Past Surgical History: PAST SURGICAL HISTORY Procedure Laterality Date CYSTOSCOPY 09/05/2024 DILATION OF URETHRAL STRICTURE HYSTERECTOMY 2021 TONSILLECTOMY HX Past Social History: Social History Tobacco Use Smoking status: Never Smokeless tobacco: Never Vaping Use Vaping status: Former Quit date: 11/16/2024 PHYSICAL EXAM: VITAL SIGNS:LMP (LMP Unknown) NAD, well appearing SPT site c/d/I, draining clear yellow urine. SPT balloon deflated of 5ml. With some difficulty, the SPT was removed - ridge at tip. New 16F blue silicone catheter was advanced into the bladder without difficulty and the balloon was inflated with 5cc sterile water. The catheter flushed easily. 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 Will do SPT capping during the trial. R/b discussed, IC signed. Has voiding diary - will send via my chart. All questions and concerns were addressed. Sinai Castanon MD [facility] 01-04-2025 Telephone encounter Note RADIOLOGY PROCEDURE INSTRUCTIONS: You are scheduled for a Suprapubic Exchange, on Sunday January 12, 2025 You are to arrive at 12:00 pm and check in at [facility]: Radiology Outpatient Desk [id number]. You can expect to be here for 2-4 hours. Address: [facility] [id number] [place] [id number] Diet: Do not eat any solid food after midnight the night before your procedure. You may drink clear liquids until 11:00 am the day of your procedure, which means black coffee, apple juice, tea, jello, Gatorade, or water only. Medications: Please take prescribed medications such as heart, blood pressure, anti-seizure, and chronic pain medications with a sip of clear liquids. Bring your current medication list. Special concerns: It is okay to shower/bathe the morning of your procedure. There may be bathing restrictions post procedure. Do you have any attached medical devices? No. If yes, the device may need to be removed before entering the procedure room. Do you use CPAP, BIPAP, or oxygen? No Allergies: Allergies reviewed: Yes Do you have a contrast dye allergy? No. Labs: Lab work needs to be drawn? No. Cellar Hand/Transportation: How will you be arriving for your procedure? Private car. If you will be arriving via ambulance or public transportation, please call to discuss. You will need a responsible adult to accompany you to and from the procedure. We will verify your ride home upon arrival. Minors/visitors requiring supervision cannot accompany you unless there is another responsible adult with them. Child and/or dependent care arrangements need to be made. If you need to cancel or reschedule your procedure, please call our air traffic controller: Estella Leno [phone]; 8am - 4pm M-F If you have any additional questions please call: [facility] nurses desk at [phone] 8am - 4pm M-F. Option 1 [facility] 01-04-2025 Miscellaneous Notes RADIOLOGY PROCEDURE INSTRUCTIONS: You are scheduled for a Suprapubic Exchange, on Sunday January 12, 2025 You are to arrive at 12:00 pm and check in at [facility]: Radiology Outpatient Desk [id number]. You can expect to be here for 2-4 hours. Address: [address] [address] Diet: Do not eat any solid food after midnight the night before your procedure. You may drink clear liquids until 11:00 am the day of your procedure, which means black coffee, apple juice, tea, jello, Gatorade, or water only. Medications: Please take prescribed medications such as heart, blood pressure, anti-seizure, and chronic pain medications with a sip of clear liquids. Bring your current medication list. Special concerns: It is okay to shower/bathe the morning of your procedure. There may be bathing restrictions post procedure. Do you have any attached medical devices? No. If yes, the device may need to be removed before entering the procedure room. Do you use CPAP, BIPAP, or oxygen? No Allergies: Allergies reviewed: Yes Do you have a contrast dye allergy? No. Labs: Lab work needs to be drawn? No. Cellar Hand/Transportation: How will you be arriving for your procedure? Private car. If you will be arriving via ambulance or public transportation, please call to discuss. You will need a responsible adult to accompany you to and from the procedure. We will verify your ride home upon arrival. Minors/visitors requiring supervision cannot accompany you unless there is another responsible adult with them. Child and/or dependent care arrangements need to be made. If you need to cancel or reschedule your procedure, please call our air traffic controller: David Leon and Liz [phone]; 8am - 4pm M-F If you have any additional questions please call: [facility] nurses desk at [phone] 8am - 4pm M-F. Option 1 documented in this encounter [facility] 12-29-2024 Telephone encounter Note Called and spoke to patient. Updated on abx sent to local pharmacy. Reminded of ER precautions if symptoms worsen. Requested patient keep office posted. Little Ziegler RN [facility] 12-29-2024 Miscellaneous Notes Called and spoke to patient. Updated on abx sent to local pharmacy. Reminded of ER precautions if symptoms worsen. Requested patient keep office posted. Little Ziegler RN Returning phone call to patient regarding SPT symptoms. Patient states she's continuing to have bladder spasms. Feels like her bladder is trying to push out of her vagina . UOP good. Still draining into collection bag. Cleaning stoma site 2-3x/day. Site warm, red, tender, yellow/green drainage. Does not seep through gauze covering stoma site. Chart routed to female urology pool for recommendations. ER precautions given if symptoms worsen. Little Ziegler RN Patient calling Concerned that she has infection around suprapubic catheter site For past few days area has had tenderness, swelling, redness Today her temperature is 99.7 She also reports some yellow/green drainage with foul odor Catheter has been draining urine, no change in urine output Asking for recommendations Patient can be reached at home number, may leave a message documented in this encounter [facility] 12-29-2024 Telephone encounter Note Kelfex sent for possible surgical site infection [facility] 12-29-2024 Miscellaneous Notes Kelfex sent for possible surgical site infection documented in this encounter [facility] 12-29-2024 Telephone encounter Note Returning phone call to patient regarding SPT symptoms. Patient states she's continuing to have bladder spasms. Feels like her bladder is trying to push out of her vagina . UOP good. Still draining into collection bag. Cleaning stoma site 2-3x/day. Site warm, red, tender, yellow/green drainage. Does not seep through gauze covering stoma site. Chart routed to female urology pool for recommendations. ER precautions given if symptoms worsen. Little Ziegler RN [facility] 12-29-2024 Telephone encounter Note Patient calling Concerned that she has infection around suprapubic catheter site For past few days area has had tenderness, swelling, redness Today her temperature is 99.7 She also reports some yellow/green drainage with foul odor Catheter has been draining urine, no change in urine output Asking for recommendations Patient can be reached at home number, may leave a message [facility] 12-19-2024 Note HNO ID: [id number] Author: SHASHI MARCOS RN Service: ? Author Type: Registered Nurse Type: Progress Notes Filed: 12/19/2024 13:37 Note Text: Patient overnight bag which was advised to use at this time instead of the leg bag is draining clear yellow urine. Patients states she has a lot more output with this bag. Dr. Castanon at bedside, swabs and culture sent to lab. Patient advised to continue to use overnight bag to ensure proper bladder emptying. [facility] 12-19-2024 History of Presen t illness Narrative Patient overnight bag which was advised to use at this time instead of the leg bag is draining clear yellow urine. Patients states she has a lot more output with this bag. Dr. Castanon at bedside, swabs and culture sent to lab. Patient advised to continue to use overnight bag to ensure proper bladder emptying. Pt with ongoing urethral and vaginal pain with SPT placement. No improvement with empiric cipro, baclofen suppositories. Switch to full bag given poor drainage with leg bag. Urine culture and vaginal swab sent. Sinai Castanon MD documented in this encounter [facility] 12-19-2024 Note HNO ID: [id number] Author: SINAI CASTANON MD Service: ? Author Type: Physician Type: Progress Notes Filed: 12/19/2024 13:37 Note Text: Pt with ongoing urethral and vaginal pain with SPT placement. No improvement with empiric cipro, baclofen suppositories. Switch to full bag given poor drainage with leg bag. Urine culture and vaginal swab sent. Sinai Castanon MD [facility] 12-11-2024 Telephone encounter Note Called and spoke to patient Ortiz is anchored properly Denies tugging Draining fine Has not had BM in 2-3 days Advised to take miralax to get bowels moving as this causes all sx she described Patient will call back If sx worsen or do not improve [facility] 12-11-2024 Miscellaneous Notes Called and spoke to patient Ortiz is anchored properly Denies tugging Draining fine Has not had BM in 2-3 days Advised to take miralax to get bowels moving as this causes all sx she described Patient will call back If sx worsen or do not improve Patient calling Dr. Castanon regarding suprapubic catheter causing pain in urethra/bladder with movement, urinary leaking, bladder spasms and intermittently cloudy urine. Pain level 8-9/10 scale with movement since insertion 11/30/24. Pain has been worsening due to increased activity level. Is hydrating well and urine is light yellow. Denies fever, chills, body aches or new back pain. Is taking prescribed cipro, prednisone, baclofen. Is also using tylenol and ibuprofen as needed for pain without improvement. Patient phone: [phone] Pharmacy: [facility] documented in this encounter [facility] 12-11-2024 Telephone encounter Note Patient calling Dr. Castanon regarding suprapubic catheter causing pain in urethra/bladder with movement, urinary leaking, bladder spasms and intermittently cloudy urine. Pain level 8-9/10 scale with movement since insertion 11/30/24. Pain has been worsening due to increased activity level. Is hydrating well and urine is light yellow. Denies fever, chills, body aches or new back pain. Is taking prescribed cipro, prednisone, baclofen. Is also using tylenol and ibuprofen as needed for pain without improvement. Patient phone: [phone] Pharmacy: [facility] Work Phone: 12-07-2024 Note Addended by: Angelia ALVARADO on: 12/07/2024 10:30 AM Modules accepted: Level of Service [facility] Work Phone: 12-07-2024 Miscellaneous Notes Addended by: AMANDA ALVARADO on: 12/07/2024 10:30 AM Modules accepted: Level of Service documented in this encounter [facility] 12-07-2024 Instructions Bola Cooley MD - 12/07/2024 9:07 AM EDT It was a pleasure seeing you and your today. We discussed the following: -Low concern for a diagnosis of multiple sclerosis at this time with our testing. Reviewed MRI and spinal cord imaging without obvious cause for your symptoms -Discussed possible peripheral nerve irritation/injury as potential cause of R inner thigh paresthesias and subtle weakness -Possible evaluation in the future with repeated EMG/NCS with us here but unlikely to exchange teller -Continue duloxetine 30mg twice a day for headache prevention, mood, and neuropathic pain. No preference regarding duloxetine/amitriptyline from our perspective. Can ask Dr. Castanon/PCP for continued prescription renewals -Please reach out if any questions/concerns or if worsening symptoms. Follow up as needed Bola Cooley MD documented in this encounter [facility] 12-07-2024 Note HNO ID: [id number] Author: AMANDA ALVARADO MD Service: ? Author Type: Resident Type: Progress Notes Filed: 12/07/2024 10:30 Note Text: Neurology Outpatient Clinic Progress Note Clinic Preceptor: Amanda Alvarado MD Reason for Evaluation: Evaluation for MS Interval History: -Last seen 11/02/24 -Underwent IR LP c/b CSF leak headache. Resolved with epidural blood patch -Rare intermittent migraine headaches at night but non-disabling (once a week) -Intermittent R anterior upper inner thigh numbness/paresthesia as previously reported (slight improvement) - she notes chronic issues with this since 2019, but notably worsened after recent procedure week of 10/13. -Sometimes difficulty with thigh adduction or prolonged standing. Pain also contributing to limited mobility at times -Some improvement in the past in amitriptyline, gabapentin too sedating. Unclear how duloxetine affecting symptoms but currently titration dose with recent BID dosing change. Mood good -Patient planning on continuing to see Dr. Castanon for urological care -Recent stopped vaping 2-3 weeks ago. Congratulated patient and encouraged continued cessation -Thoracic spinal imaging imported. Patient attempting to grab EMG/NCS 10/12/24 studies from [facility] Prior HPI: Sinai Lockwood is a left-handed, 29 year old female from [place], [place] who presents to the [facility] outpatient neurology department with a chief complaint of possible MS. Past medical history significant for: -Pelvic pain, possible neuropathy + laser uterosacral nerve ablation, urinary issues, intersitial cystitis, endometriosis s/p laparotomy 2019, urinary retention, bacterial vaginosis, migraine w visual aura, hx tonsillectomy. Long hx pelvic pain + neuropathic pain in R labial region to RLE and R back with inability to walk at times due to pain (not due to weakness). Hysterectomy 2019 for endometriosis (ovaries retained). No hx of unilateral weakness, vision changes >24 hours. Does report lower pelvic mid back squeezing sensation + overall fatigue. Pain described as bladder aching/squeezing along with radiating burning/zapping pain down inward portion of R thigh. However worsened after urological procedure 09/05/2024 Has seen urology with multiple cystoscopies 2019, hydro distension cystoscopy 09/05/2024), cystourethroscopy + dilation of urethral stricture 07/2020. On/off amitriptyline, mirabegron, Tolterodine + baclofen, diazepam suppositories for mixed urinary symptoms. Previously done pelvic floor therapy as well. Currently on amitryptiline, mirabegron + baclofen, diazepam suppositories. Off tolterodine Pt reports new sudden onset of urinary retention started 09/2024 after recent cystoscopy with hydrodistension on 09/05/2024. Had an indwelling ortiz post procedure which was weaned to self catheterization but now back to indwelling ortiz over the past three weeks. Had ortiz catheter twice (now currently in for about 3 weeks). Worsened radiating leg pain with weakness 2/2 pain after urological procedure 09/05/2024 Underwent MRI brain 09/2024 with a non enhancing T2 L frontal subcortical lesion seen. MRI icetmuxc-gayyehwq-gjkrnw w/wo late October 2024 w/o enhancement/chronic L5-S1 changes seen.Did have a lumbar MRI w/o in 2020 by [facility]. Maternal hx of MS great aunt, aunt. Underwent MRI brain 09/2024 and MRI zhohxoww-wheueiqp-vnhcqg w/wo late October 2024.Did have a lumbar MRI w/o in 2020 by [facility]. Had EMG several weeks ago as well for neuropathic pain and specifically testing the pudendal nerve which was reportedly normal. 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 Other neurological issues include intermittent bifrontal headache described as throbbing with visual aura and photo/phonophobia. Since adolescence, used to have worsened nausea/vomitting when younger but improved now. Negative for red flag SNOOP criteria. Happens once a week lasting for several hours. Partially relieved with otc acetaminophen. HPI most recent clinic note by Dr. Pao Macedo 09/18/24 below: CURRENT OUTPATIENT MEDICATIONS Current Outpatient Medications Medication Sig ciprofloxacin HCl (CIPRO) 500 mg tablet Take 1 tablet by mouth every 12 hours. predniSONE (DELTASONE) 10 mg tablet TAKE 4 TABLETS BY MOUTH DAILY FOR 3 DAYS, then 3 TABLETS FOR 3 DAYS, then 2 TABLETS FOR 3 DAYS, then ONE TABLET FOR 3 DAYS baclofen suppository 10 mg (CPD) Use 1 suppository vaginally two times a day as needed. Unwrap and insert one suppository as directed. DULoxetine (CYMBALTA) 30 mg capsule Take 1 capsule by mouth two times a day. No current facility-administered medications for this visit. MEDICAL HISTORY PAST MEDICAL HISTORY Diagnosis Date Bladder pain BV (bacterial vaginosis) Dysuria Mononeuropathy Muscle spasm Nerve pain OAB (overactive bladder) P (more content not included)... [facility] 12-07-2024 History of Presen t illness Narrative Images from the original note were not included. Neurology Outpatient Clinic Progress Note Clinic Preceptor: Amanda Alvarado MD Reason for Evaluation: Evaluation for MS Interval History: -Last seen 11/02/24 -Underwent IR LP c/b CSF leak headache. Resolved with epidural blood patch -Rare intermittent migraine headaches at night but non-disabling (once a week) -Intermittent R anterior upper inner thigh numbness/paresthesia as previously reported (slight improvement) - she notes chronic issues with this since 2018, but notably worsened after recent procedure week of 10/13. -Sometimes difficulty with thigh adduction or prolonged standing. Pain also contributing to limited mobility at times -Some improvement in the past in amitriptyline, gabapentin too sedating. Unclear how duloxetine affecting symptoms but currently titration dose with recent BID dosing change. Mood good -Patient planning on continuing to see Dr. Castanon for urological care -Recent stopped vaping 2-3 weeks ago. Congratulated patient and encouraged continued cessation -Thoracic spinal imaging imported. Patient attempting to grab EMG/NCS 10/12/24 studies from [facility] Prior HPI: Sinai Lockwood is a left-handed, 29 year old female from [place], [place] who presents to the [facility] outpatient neurology department with a chief complaint of possible MS. Past medical history significant for: -Pelvic pain, possible neuropathy + laser uterosacral nerve ablation, urinary issues, intersitial cystitis, endometriosis s/p laparotomy 2019, urinary retention, bacterial vaginosis, migraine w visual aura, hx tonsillectomy. Long hx pelvic pain + neuropathic pain in R labial region to RLE and R back with inability to walk at times due to pain (not due to weakness). Hysterectomy 2019 for endometriosis (ovaries retained). No hx of unilateral weakness, vision changes >24 hours. Does report lower pelvic mid back squeezing sensation + overall fatigue. Pain described as bladder aching/squeezing along with radiating burning/zapping pain down inward portion of R thigh. However worsened after urological procedure 09/05/2024 Has seen urology with multiple cystoscopies 2019, hydro distension cystoscopy 09/05/2024), cystourethroscopy + dilation of urethral stricture 07/2020. On/off amitriptyline, mirabegron, Tolterodine + baclofen, diazepam suppositories for mixed urinary symptoms. Previously done pelvic floor therapy as well. Currently on amitryptiline, mirabegron + baclofen, diazepam suppositories. Off tolterodine Pt reports new sudden onset of urinary retention started 09/2024 after recent cystoscopy with hydrodistension on 09/05/2024. Had an indwelling ortiz post procedure which was weaned to self catheterization but now back to indwelling ortiz over the past three weeks. Had ortiz catheter twice (now currently in for about 3 weeks). Worsened radiating leg pain with weakness 2/2 pain after urological procedure 09/05/2024 Underwent MRI brain 09/2024 with a non enhancing T2 L frontal subcortical lesion seen. MRI kzwibyui-dsizzcwd-wgmorf w/wo late October 2024 w/o enhancement/chronic L5-S1 changes seen.Did have a lumbar MRI w/o in 2020 by [facility]. Maternal hx of MS great aunt, aunt. Underwent MRI brain 09/2024 and MRI [id number]-cgjcvqug-gajifu w/wo late October 2024.Did have a lumbar MRI w/o in 2020 by [facility]. Had EMG several weeks ago as well for neuropathic pain and specifically testing the pudendal nerve which was reportedly normal. 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 Other neurological issues include intermittent bifrontal headache described as throbbing with visual aura and photo/phonophobia. Since adolescence, used to have worsened nausea/vomitting when younger but improved now. Negative for red flag SNOOP criteria. Happens once a week lasting for several hours. Partially relieved with otc acetaminophen. HPI most recent clinic note by Dr. Pao Macedo 09/18/24 below: CURRENT OUTPATIENT MEDICATIONS Current Outpatient Medications Medication Sig ciprofloxacin HCl (CIPRO) 500 mg tablet Take 1 tablet by mouth every 12 hours. predniSONE (DELTASONE) 10 mg tablet TAKE 4 TABLETS BY MOUTH DAILY FOR 3 DAYS, then 3 TABLETS FOR 3 DAYS, then 2 TABLETS FOR 3 DAYS, then ONE TABLET FOR 3 DAYS baclofen suppository 10 mg (CPD) Use 1 suppository vaginally two times a day as needed. Unwrap and insert one suppository as directed. DULoxetine (CYMBALTA) 30 mg capsule Take 1 capsule by mouth two times a day. No current facility-administered medications for this visit. MEDICAL HISTORY PAST MEDICAL HISTORY Diagnosis Date Bladder pain BV (bacterial vaginosis) Dysuria Mononeuropathy Muscle spasm Nerve pain OAB (overactive bladder) Pelvic floor dysfunction Urinary retention SURGICAL HISTORY PAST SURGICAL HISTORY Procedure Laterality Date CYSTOSCOPY 09/05/2024 DILATION OF URETHRAL STRICTURE HYSTERECTOMY 2021 TONSILLECTOMY HX SOCIAL HISTORY Social History Tobacco Use Smoking status: Never Smokeless tobacco: Never Vaping Use Vaping status: Former Quit date: 11/16/2024 FAMILY HISTORY FAMILY HISTORY Problem Relation Age of Onset Multiple Sclerosis Other Maternal aunt & great aunt ALLERGIES ALLERGIES Allergen Reactions Latex Hives Penicillins Hives Propolis (Bee Glue) Itching REVIEW OF SYSTEMS: (negative except for those indicated in bold) General: - Fevers, Chills, Weight Loss, or Night Sweats HEENT: - Headaches or Blurry Vision Cardiovascular: - CP, Palpitations, Diaphoresis, or Peripheral Edema Respiratory: - Cough, Shortness of Breath, or Hemoptysis Gastrointestinal: - N/V, Abdominal Pain, Constipation, Diarrhea, Melena, or Hematochezia Genitourinary: - Polyruia, Dysuria, or Urgency Endo: - Polydipsia, Heat/Cold Intolerance, or Hair/Skin/Nail Changes Rheum: - Joint Pain MSK: - LBP or Muscle Pain Psych: - Anxiety or Depression PHYSICAL EXAM: BP 112/68 Pulse 66 Wt 120 lb (54.4kg) General: General appearance: Awake and alert. No distress. Cooperative with exam. Skin: No rash or jaundice. HEENT: Atraumatic. Anicteric. Lungs: No respiratory distress or wheezing. Normal chest rise. Heart: No peripheral edema. Abdomen: Soft, non tender. Extremities: No edema. No obvious deformity. Musculoskeletal: No obvious joint swelling. Psych: Affect appropriate. Neurological Examination Mental Status: Alert, oriented to person, place and time and Follows commands. Cranial Nerves: CNII: Visual acuity normal, Visual fonseca full to confrontation CNIII, IV, : Pupils equal, round and reactive to light, full extraoccular movements, without nystagmus CN V: Facial sensation intact bilaterally to fine touch and pinprick, masseter 5/5 CN VII: Facial muscles symmetric and strong, No noted facial droop CN VIII: Hears finger rub well bilaterally CN IX: Gag Reflex Not examined CN X: Palate elevates symmetrically CN XI: Full strength shoulder shrug bilaterally CN XII: Tongue protrusion full and midline Tone Tone - Normal Bulk - no muscle atrophy Power Upper Extremity Right Left Shoulder Abd (Axil C5-C6) 5/5 5/5 Elbow Flx (Musc C5-C6) 5/5 5/5 Elbow Ext (Radial C7-C8) 5/5 5/5 Wrist Flx (Md/Ul C6-T1) 5/5 5/5 Wrist Ext (Radial C6-C8) 5/5 5/5 Lower Extremity Right Left Hip Flx (Lum Plx L1/L2/L3) 5/5 5/5 Hip Ext (Sciatic L5-S1) 5/5 5/5 Knee Flx (Sciatic L5/S1) 5/5 5/5 Knee Ext (Femoral L3/L4) 5/5 5/5 Dorsiflexion (Peroneal L5) 5/5 5/5 Plantar Flx (Tibial S1) 5/5 5/5 Noted with encouragement, able to perform full strength (although intermittently limited by pain) Reflexes Right Left Triceps 2/4 2/4 Bicep 2/4 2/4 BrRad 2/4 2/4 Knee 2/4 2/4 Ankle 2/4 2/4 Clonus: Bilateral Negative Sensation Sensation: Decreased sensation to light touch on inner upper thigh. Intact vibration, pinprick in all other extremities proximal and distally Gait and Coordination Coordination: Finger-to- nose-finger intact bilaterally and Dlkw-ni-rtme intact bilaterally. Gait: Patient's gait is normal LABS/DATA: Latest Ref Rng 11/02/2024 11/14/2024 Immunoglobulin G, CSF 1.0 - 3.0 mg/dL 0.4 (L) CSF Albumin 10.0 - 30.0 mg/dL <9.5 (L) IgG/Albumin Ratio -- WOOL BROKER IgG Synthesis -- IgG Index -- IgG, Serum 700 - 1,600 mg/dL 817 Albumin, Serum 3,900 - 4,900 mg/dL 4,300 CSF Tube Nbr Tube 2 Color, CSF Colorless Colorless Clarity, CSF Clear Clear Supernatant Color, CSF Colorless Not Indicated Supernatant Clarity, CSF Clear Not Indicated RBC, CSF 0 - 5 cells/uL 0 Total Nucleated Cells, CSF 0 - 5 cells/uL 1 Culture, CSF No growth 5 days Smear Result No organisms seen Smear Result No Polymorphonuclear leukocytes Smear Result No Mononuclear cells Smear Result Rare Epithelial cells Smear Result Gram stain performed on cytospun specimen. HIV 12 Combo (Ag/Ab) Nonreactive Nonreactive HIV 1/2 Ab -- HIV Interpretation -- WOOL BROKER Demyelinating Disease Interp, S SEE NOTE NMO/AQPF FACS, S Negative Negative MOG-IgG1 FACS Negative Negative DIF TTL, CSF cells counted 57 Lymph%, CSF 50 - 90 % 98 (H) Benton%, CSF 10 - 50 % 2 (L) Specimen Source (CMVCSF) CSF Cytomegalovirus DNA Not Detected CSF Oligoclonal Bands Oligoclonal bands are not seen in the CSF. Staff Review (Oligo Banding) Reviewed by Shayla Villa M.D., Ph.D [place] Antibodies, Screen Negative Negative Vitamin D 25 Hydroxy 31.0 - 80.0 ng/mL 24.0 (L) VZV IgG, CSF <=0.99 S/CO 0.01 Protein, CSF 15 - 45 mg/dL 13 (L) Glucose, CSF 40 - 70 mg/dL 59 VZV IgM, CSF <=0.90 ISR 0.00 Legend: (L) Low (H) High IMAGING: MRI brain w/wo 09/29/202410/2024 MRI cervical +thoracic+lumbar spine w/wo Small amount of endplate degenerative signal with mild disc bulge at C5-C6, mild facet changes L4-L5 w/o significant canal or foraminal narrowing, and disc dessication and disc bulge wihtout significant canal or foraminal narrowing at L5-S1. 2020 MRI lumbar spine w/o contrast Central disc protrusion at the L5-S1 level without thecal sac or nerve root compression. No evidence of stenosis. ASSESSMENT: Sinai Lockwood is a 29 year old female left handed female with past medical history significant for urinary retention, endometriosis, recurrent dysparenuia, R thigh paresthesias/neuropathic pain, interstitial cystitis, overactive bladder, and migraine with visual aura. Would localize neuropathic symptoms/numbness + possible RLE weakness (although at times limited by pain) to either PNS/lumbar plexus 2/2 compressive/other unspecified injury with additional urological/MSK contributing factors. Limited evidence for primary WOOL BROKER process in brain or spinal cord that would explain bladder/urinary symptoms or sensory symptoms. Unlikely to be multiple sclerosis or other demyelinating disease now given both MRIs and CSF. Migraines stable and well controlled. Non-disabling. Post LP headache resolved. Ongoing urological care and evaluation along with MIS referral given hx of endometriosis. PLAN: -Appreciate ongoing multidisciplinary care. Will touch base with urology regarding our workup updates -Hold off EMG/NCS to focus on L medial thigh/lumbar plexus right now. Unlikely to exchange teller but can be explored if additional confirmation or potential nerve blocks to be pursued in the future -Ongoing attempts to try and obtain EMG/NCS studies (requested by patient and not available on [facility] on review today) -Continue duloxetine 60mg BID. Will send refills in interim. Rx can be taken over by PCP/local providers if willing. No preference regarding amitryptiline vs duloxetine. Prior poor tolerance to gabapentin 2/2 sedation. Muscle relaxants also can be considered (currently using baclofen suppositories PRN) -Pt to monitor neuropathic/numbness and to reach out if any change or worsening -Follow up as needed Discussed with staff, Dr. Amanda Cooley MD Neurology, PGY-3 12/07/24 8:09 AM NEUROLOGY STAFF ADDENDUM I have reviewed the history and physical examination obtained and documented by the resident and I personally participated in the menard components of history and examination. I agree with the resident's plan as noted above which was formulated with my direct input. In summary patient has had urinary dysfunction with acute worsening around bladder procedures and some mild RLE pain/ weakness. Her MRI brain showed non-specific WM lesions and no spinal cord lesions. CSF now without evidence of inflammatory disease as well. As such we discussed no evidence for demyelinating disease as cause of her symptoms. We suspect instead this could be related to local trauma surrounding her procedure, endometriosis or others. She also has migraines which are being treated with duloxetine and stable. Plan as above. Amanda Alvarado MD Staff Neurologist [facility] 12/07/2024 10:24 AM documented in this encounter [facility] 12-06-2024 Telephone encounter Note SERVICE DATE: December 06, 2024 SERVICE TIME: 1430 SERVICE: Interventional Radiology IMPRESSION/RECOMMENDATIONS Sinai was contacted today for follow up s/p placement of Suprapubic catheter. - Suprapubic catheter to gravity drainage with reported good output.Urine is clear. Having bladder spasms will follow up with urology. - Discussed signs and symptoms of infection. - Reviewed how to manage common tube related problems and emergency situations. - Emergency telephone contact information reviewed. - Reviewed dressing change. - Tube care supplies adequate - Routine tube change to be scheduled. Suprapubic Tube / Catheter At Home Care Instructions: Symptoms of an Infection to Watch for Include: Fever Swelling around the suprapubic tube site Increase in redness around the suprapubic tube site Pus Cloudy or foul-smelling urine Call your doctor if you: See signs of infection, such as redness, drainage, foul odor, or swelling at the suprapubic CATHETER site Have a temperature higher than 100.4 F or 38 C. Develop shaking chills. Cloudy or foul-smelling urine. Catheter is not draining and you are not comfortable. See bright red blood in your urine like cranberry juice or darker (some pink-tinged urine is to be expected). Pelvic, abdominal, back or flank pain Notice a foul odor in your urine. Watch for the following (in regards to the nephrostomy tube): Wet dressing Pain in your abdomen, pelvis, back or sides Little or no urine drainage If you have any of the above signs or symptoms, follow these steps: Remove your dressing and check to see if the tube is kinked. If the catheter is kinked, straighten it until fluid begins to flow. Be sure the drainage bag is below the level of the catheter site. Remove bag and gently flush drain with 10 ml NS Care of the Suprapubic Site: Always wash your hands before and after touching the catheter site and emptying the drainage bag. Keep the dressing that is over the catheter site clean and dry. You may have a stitch holding your catheter in place. If the stitch breaks, call your doctor. Always keep the bag below the catheter site to allow proper drainage by gravity, even at night with sleeping. Remove the dressing around the catheter site before you enter the shower. Wash around the catheter site with a washcloth and mild soap and water. Dry the site thoroughly and replace the dressing. Your dressing should be changed every other day or sooner if it becomes wet, soiled, falls off, or unless instructed otherwise. It is easier if someone helps you change the dressing. Change the drainage bag monthly. It is important that the catheter remain in the proper position and does not become kinked. DO NOT swim or soak in water. Supplies or Equipment I Need Gauze, tape, flushes Activity and Exercise: (in regards to the suprapubic catheter) Avoid positions that may cause kinking of the tube. You may resume your normal activities 24 hours after the procedure. Interventional Radiology Appointment Reminders: For routine concerns please call Interventional Radiology nurse triage line [phone], Wednesday - Wednesday 7:30 a.m. - 4 p.m. After hours please call and ask for Interventional Radiology Fellow director of conservation, pager [phone]. In the event of acute symptoms report directly to local emergency department and notify the Department of Interventional Radiology after the fact. Your tube needs to be changed regularly to reduce the risk of infection and for proper drainage. (IR will contact you to arrange for routine exchange) Please contact the Interventional Radiology outpatient scheduling department at [phone] (option 1) if you need to change or reschedule any of these appointments.ge or schedule an appointment with interventional radiology please call scheduling at I spent 15 minutes today with this patient comprising of education and answering questions/concerns. [facility] 12-06-2024 Miscellaneous Notes SERVICE DATE: December 06, 2024 SERVICE TIME: 1430 SERVICE: Interventional Radiology IMPRESSION/RECOMMENDATIONS Sinai was contacted today for follow up s/p placement of Suprapubic catheter. - Suprapubic catheter to gravity drainage with reported good output.Urine is clear. Having bladder spasms will follow up with urology. - Discussed signs and symptoms of infection. - Reviewed how to manage common tube related problems and emergency situations. - Emergency telephone contact information reviewed. - Reviewed dressing change. - Tube care supplies adequate - Routine tube change to be scheduled. Suprapubic Tube / Catheter At Home Care Instructions: Symptoms of an Infection to Watch for Include: Fever Swelling around the suprapubic tube site Increase in redness around the suprapubic tube site Pus Cloudy or foul-smelling urine Call your doctor if you: See signs of infection, such as redness, drainage, foul odor, or swelling at the suprapubic CATHETER site Have a temperature higher than 100.4 F or 38 C. Develop shaking chills. Cloudy or foul-smelling urine. Catheter is not draining and you are not comfortable. See bright red blood in your urine like cranberry juice or darker (some pink-tinged urine is to be expected). Pelvic, abdominal, back or flank pain Notice a foul odor in your urine. Watch for the following (in regards to the nephrostomy tube): Wet dressing Pain in your abdomen, pelvis, back or sides Little or no urine drainage If you have any of the above signs or symptoms, follow these steps: Remove your dressing and check to see if the tube is kinked. If the catheter is kinked, straighten it until fluid begins to flow. Be sure the drainage bag is below the level of the catheter site. Remove bag and gently flush drain with 10 ml NS Care of the Suprapubic Site: Always wash your hands before and after touching the catheter site and emptying the drainage bag. Keep the dressing that is over the catheter site clean and dry. You may have a stitch holding your catheter in place. If the stitch breaks, call your doctor. Always keep the bag below the catheter site to allow proper drainage by gravity, even at night with sleeping. Remove the dressing around the catheter site before you enter the shower. Wash around the catheter site with a washcloth and mild soap and water. Dry the site thoroughly and replace the dressing. Your dressing should be changed every other day or sooner if it becomes wet, soiled, falls off, or unless instructed otherwise. It is easier if someone helps you change the dressing. Change the drainage bag monthly. It is important that the catheter remain in the proper position and does not become kinked. DO NOT swim or soak in water. Supplies or Equipment I Need Gauze, tape, flushes Activity and Exercise: (in regards to the suprapubic catheter) Avoid positions that may cause kinking of the tube. You may resume your normal activities 24 hours after the procedure. Interventional Radiology Appointment Reminders: For routine concerns please call Interventional Radiology nurse triage line [phone], Wednesday - Wednesday 7:30 a.m. - 4 p.m. After hours please call and ask for Interventional Radiology Fellow director of conservation, pager [phone]. In the event of acute symptoms report directly to local emergency department and notify the Department of Interventional Radiology after the fact. Your tube needs to be changed regularly to reduce the risk of infection and for proper drainage. (IR will contact you to arrange for routine exchange) Please contact the Interventional Radiology outpatient scheduling department at [phone] (option 1) if you need to change or reschedule any of these appointments.ge or schedule an appointment with interventional radiology please call scheduling at I spent 15 minutes today with this patient comprising of education and answering questions/concerns. documented in this encounter [facility] 12-06-2024 Telephone encounter Note Interventional Radiology Follow Up Call Attempted to reach Sinai today for follow up from their tube placement. Unable to reach them at this time. Message left with phone number to return the call. [facility] 12-06-2024 Miscellaneous Notes Interventional Radiology Follow Up Call Attempted to reach Sinai today for follow up from their tube placement. Unable to reach them at this time. Message left with phone number to return the call. documented in this encounter [facility] 12-01-2024 Telephone encounter Note Summary: tube change Due 01/12/2025--- waiting on qgenda [facility] 12-01-2024 Miscellaneous Notes Summary: tube change Due 01/12/2025--- waiting on qgenda Tube Exchange Appointment Request Form Person filling out this form: Ilda Smith RN Date: November 30, 2024 Time: 2:22 PM Patient Name: Sinai Lockwood Patient What type of tube is this? Supra-pubic urinary bladder catheter Does this tube need exchanged? Yes, How many weeks? 6 weeks Per physician direction, does this need to be physician specific? No Does this patient require MARAL? No Per physician, can this exchange be done in the region? [place] / [place] ( [place] ) If the patient has an already existing exchange appointment can that one be cancelled? No Any other pertinent information needed for schedulers? New suprapubic catheter documented in this encounter [facility] 11-30-2024 Telephone encounter Note Tube Exchange Appointment Request Form Person filling out this form: Ilda Smith RN Date: November 30, 2024 Time: 2:22 PM Patient Name: Sinai Lockwood Patient What type of tube is this? Supra-pubic urinary bladder catheter Does this tube need exchanged? Yes, How many weeks? 6 weeks Per physician direction, does this need to be physician specific? No Does this patient require MARAL? No Per physician, can this exchange be done in the region? [place] / [place] ( [place] ) If the patient has an already existing exchange appointment can that one be cancelled? No Any other pertinent information needed for schedulers? New suprapubic catheter [facility] 11-30-2024 Note HNO ID: [id number] Author: LIZY LAM RN Service: Nursing Author Type: Registered Nurse Type: Nursing Progress Note Filed: 11/30/2024 14:22 Note Text: Ortiz taken out per order. Pt tolerated well. [facility] 11-20-2024 Telephone encounter Note Images from the original note were not included. [facility] C[facility] I spoke with patient regarding course after recently performed lumbar puncture. In brief, lumbar puncture performed on 11/14/24 for concern for demyelinating process. Opening pressure documented at 14 cm H2O, 15 cc CSF removed. Patient endorses significant headache since the procedure that is worse when sitting up / standing up, and partially relieved while lying flat. She presented to local ED last week on 11/17 for assessment. It sounds like she was given medications for symptom relief and underwent a brain CT which I do not see in our system. Symptoms seem consistent with post lumbar puncture / positional headache. I explained the epidural blood patch procedure and its rationale. HOWEVER, patient describes what sounds like a significant episode of rectal bleeding that happened today. She says this was the first occurrence and this did not happen prior to her recent ED visit. She also endorses current lightheadedness, shortness of breath, and chest pain. These symptoms would not be expected to relate to recent lumbar puncture. I advised patient present to local ED as soon as possible for in person assessment and evaluation. I told patient to reach back out to our department once this situation is resolved/explained to decide if the blood patch procedure should be pursued. Bryce Banegas MD November 20, 2024 3:41 PM [facility] Work Phone: 11-20-2024 Miscellaneous Notes Images from the original note were not included. [facility] C[facility] I spoke with patient regarding course after recently performed lumbar puncture. In brief, lumbar puncture performed on 11/14/24 for concern for demyelinating process. Opening pressure documented at 14 cm H2O, 15 cc CSF removed. Patient endorses significant headache since the procedure that is worse when sitting up / standing up, and partially relieved while lying flat. She presented to local ED last week on 11/17 for assessment. It sounds like she was given medications for symptom relief and underwent a brain CT which I do not see in our system. Symptoms seem consistent with post lumbar puncture / positional headache. I explained the epidural blood patch procedure and its rationale. HOWEVER, patient describes what sounds like a significant episode of rectal bleeding that happened today. She says this was the first occurrence and this did not happen prior to her recent ED visit. She also endorses current lightheadedness, shortness of breath, and chest pain. These symptoms would not be expected to relate to recent lumbar puncture. I advised patient present to local ED as soon as possible for in person assessment and evaluation. I told patient to reach back out to our department once this situation is resolved/explained to decide if the blood patch procedure should be pursued. Bryce Banegas MD November 20, 2024 3:41 PM documented in this encounter [facility] 11-16-2024 Hospital Discharg e instructions Patient Education 11/16/2024 17:31:13 Tension Headache, Adult, [id number] Tension Headache, Adult A tension headache is a feeling of pain, pressure, or aching in the head. It is often felt over the front and sides of the head. Tension headaches can last from 30 minutes to several days. What are the causes? The cause of this condition is not known. Sometimes, tension headaches are brought on by stress, worry (anxiety), or depression. Other things that may set them off include: Alcohol. Too much caffeine or caffeine withdrawal. Colds, flu, or sinus infections. Dental problems. This can include clenching your teeth. Being tired. Holding your head and neck in the same position for a long time, such as while using a computer. Smoking. Arthritis in the neck. What are the signs or symptoms? Feeling pressure around the head. A dull ache in the head. Pain over the front and sides of the head. Feeling sore or tender in the muscles of the head, neck, and shoulders. How is this treated? This condition may be treated with lifestyle changes and with medicines that help relieve symptoms. Follow these instructions at home: Managing pain Take [id number] and prescription medicines only as told by your doctor. When you have a headache, lie down in a dark, quiet room. If told, put ice on your head and neck. To do this: ?Put ice in a plastic bag. ?Place a towel between your skin and the bag. ?Leave the ice on for 20 minutes, 2 3 times a day. ?Take off the ice if your skin turns bright red. This is very important. If you cannot feel pain, heat, or cold, you have a greater risk of damage to the area. If told, put heat on the back of your neck. Do this as often as told by your doctor. Use the heat source that your doctor recommends, such as a moist heat pack or a heating pad. ?Place a towel between your skin and the heat source. ?Leave the heat on for 20 30 minutes. ?Take off the heat if your skin turns bright red. This is very important. If you cannot feel pain, heat, or cold, you have a greater risk of getting burned. Eating and drinking Eat meals on a regular schedule. If you drink alcohol: ?Limit how much you have to: ?0 1 drink a day for women who are not . ?0 2 drinks a day for men. ?Know how much alcohol is in your drink. In the [place] one drink equals one 12 oz bottle of beer (355 mL), one 5 oz glass of wine (148 mL), or one 1 oz glass of hard liquor (44 mL). Drink enough fluid to keep your pee (urine) pale yellow. Do not use a lot of caffeine, or stop using caffeine. Lifestyle Get 7 9 hours of sleep each night. Or get the amount of sleep that your doctor tells you to. At bedtime, keep computers, phones, and tablets out of your room. Find ways to lessen your stress. This may include: ?Exercise. ?Deep breathing. ?Yoga. ?Listening to music. ?Thinking positive thoughts. Sit up straight. Try to relax your muscles. Do not smoke or use any products that contain nicotine or tobacco. If you need help quitting, ask your doctor. General instructions Avoid things that can bring on headaches. Keep a headache journal to see what may bring on headaches. For example, write down: ?What you eat and drink. ?How much sleep you get. ?Any change to your diet or medicines. Keep all follow-up visits. Contact a doctor if: Your headache does not get better. Your headache comes back. You have a headache, and sounds, light, or smells bother you. You feel like you may vomit, or you vomit. Your stomach hurts. Get help right away if: You all of a sudden get a very bad headache with any of these things: ?A stiff neck. ?Feeling like you may vomit. ?Vomiting. ?Feeling mixed up (confused). ?Feeling weak in one part or one side of your body. ?Having trouble seeing or speaking, or both. ?Feeling short of breath. ?A rash. ?Feeling very sleepy. ?Pain in your eye or ear. ?Trouble walking or balancing. ?Feeling like you will faint, or you faint. Summary A tension headache is pain, pressure, or aching in your head. Tension headaches can last from 30 minutes to several days. Lifestyle changes and medicines may help relieve pain. This information is not intended to replace advice given to you by your health care provider. Make sure you discuss any questions you have with your health care provider. Document Revised: 03/20/2021 Document Reviewed: 03/20/2021 [employer] Patient Education 2023 [employer]. Follow Up Care 11/16/2024 14:51:19 With:Call to schedule a follow-up appointment with your neurologist. Use naproxen and Tylenol as needed for headaches. MiraLAX as needed for constipation. And Zofran as needed for nausea/vomiting. Return to the ED with any new or worsening symptoms. Address:Unknown When:11/19/2024 17:31:05 With:BEBETO CARTY Address:Unknown When:11/19/2024 17:29:49 [facility] 11-16-2024 Note ED Patient Education Note Neurology Tension Headache, Adult A tension headache is a feeling of pain, pressure, or aching in the head. It is often felt over the front and sides of the head. Tension headaches can last from 30 minutes to several days. What are the causes? The cause of this condition is not known. Sometimes, tension headaches are brought on by stress, worry (anxiety), or depression. Other things that may set them off include: ??? Alcohol. ??? Too much caffeine or caffeine withdrawal. ??? Colds, flu, or sinus infections. ??? Dental problems. This can include clenching your teeth. ??? Being tired. ??? Holding your head and neck in the same position for a long time, such as while using a computer. ??? Smoking. ??? Arthritis in the neck. What are the signs or symptoms? Feeling pressure around the head. ??? A dull ache in the head. ??? Pain over the front and sides of the head. ??? Feeling sore or tender in the muscles of the head, neck, and shoulders. How is this treated? This condition may be treated with lifestyle changes and with medicines that help relieve symptoms. Follow these instructions at home: Managing pain ??? Take [id number]-qbgnrba and prescription medicines only as told by your doctor. ??? When you have a headache, lie down in a dark, quiet room. ??? If told, put ice on your head and neck. To do this: ? Put ice in a plastic bag. ? Place a towel between your skin and the bag. ? Leave the ice on for 20 minutes, 2?3 times a day. ? Take off the ice if your skin turns bright red. This is very important. If you cannot feel pain, heat, or cold, you have a greater risk of damage to the area. ??? If told, put heat on the back of your neck. Do this as often as told by your doctor. Use the heat source that your doctor recommends, such as a moist heat pack or a heating pad. ? Place a towel between your skin and the heat source. ? Leave the heat on for 20?30 minutes. ? Take off the heat if your skin turns bright red. This is very important. If you cannot feel pain, heat, or cold, you have a greater risk of getting burned. Eating and drinking ??? Eat meals on a regular schedule. ??? If you drink alcohol: ? Limit how much you have to: ? 0?1 drink a day for women who are not . ? 0?2 drinks a day for men. ? Know how much alcohol is in your drink. In the [place] one drink equals one 12 oz bottle of beer (355 mL), one 5 oz glass of wine (148 mL), or one 1? oz glass of hard liquor (44 mL). ??? Drink enough fluid to keep your pee (urine) pale yellow. ??? Do not use a lot of caffeine, or stop using caffeine. Lifestyle ??? Get 7?9 hours of sleep each night. Or get the amount of sleep that your doctor tells you to. ??? At bedtime, keep computers, phones, and tablets out of your room. ??? Find ways to lessen your stress. This may include: ? Exercise. ? Deep breathing. ? Yoga. ? Listening to music. ? Thinking positive thoughts. ??? Sit up straight. Try to relax your muscles. ??? Do not smoke or use any products that contain nicotine or tobacco. If you need help quitting, ask your doctor. General instructions ??? Avoid things that can bring on headaches. Keep a headache journal to see what may bring on headaches. For example, write down: ? What you eat and drink. ? How much sleep you get. ? Any change to your diet or medicines. ??? Keep all follow-up visits. Contact a doctor if: ??? Your headache does not get better. ??? Your headache comes back. ??? You have a headache, and sounds, light, or smells bother you. ??? You feel like you may vomit, or you vomit. ??? Your stomach hurts. Get help right away if: ??? You all of a sudden get a very bad headache with any of these things: ? A stiff neck. ? Feeling like you may vomit. ? Vomiting. ? Feeling mixed up (confused). ? Feeling weak in one part or one side of your body. ? Having trouble seeing or speaking, or both. ? Feeling short of breath. ? A rash. ? Feeling very sleepy. ? Pain in your eye or ear. ? Trouble walking or balancing. ? Feeling like you will faint, or you faint. Summary ??? A tension headache is pain, pressure, or aching in your head. ??? Tension headaches can last from 30 minutes to several days. ??? Lifestyle changes and medicines may help relieve pain. This information is not intended to replace advice given to you by your health care provider. Make sure you discuss any questions you have with your health care provider. Document Revised: 03/20/2021 Document Reviewed: 03/20/2021 [employer] Patient Education ? 2023 [employer]. [facility] 11-16-2024 Evaluation + Plan note Extrac gorge from: Title:ED Note Author:Shashi Levy PA-C te:11/16/24 Acute abdominal pain (R10.9: Unspecified abdominal pain) Headache, post-lumbar puncture (G97.1: Other reaction to spinal and lumbar puncture) Nausea (R11.0: Nausea) Orders: diphenhydrAMINE, 25 mg = 0.5 mL, Injection, IV Push, Once, Stop date 11/16/24 15:12:00 EDT, STAT, Start date 11/16/24 15:12:00 EDT, 11/16/24 15:12:00 EDT ketorolac, 30 mg = 1 mL, Injection, IV Push, Once, Stop date 11/16/24 15:13:00 EDT, STAT, Start date 11/16/24 15:13:00 EDT, 11/16/24 15:13:00 EDT metoclopramide, 10 mg = 2 mL, Injection, IV Push, Once, Stop date 11/16/24 15:12:00 EDT, STAT, Start date 11/16/24 15:12:00 EDT, 11/16/24 15:12:00 EDT naproxen, 500 mg = 1 tab(s), Oral, BID, PRN Pain, # 30 tab(s), Refills(s) 0, Pharmacy: [facility] #[facility], 165, cm, 11/16/24 14:56:00 EDT, Height/Length Dosing, 57.1, kg, 11/16/24 14:56:00 EDT, Weight Dosing ondansetron, 4 mg = 1 tab(s), Oral, q8hr, PRN Nausea/Vomiting, # 12 tab(s), Refills(s) 0, Pharmacy: [facility] #[facility], 165, cm, 11/16/24 14:56:00 EDT, Height/Length Dosing, 57.1, kg, 11/16/24 14:56:00 EDT, Weight Dosing polyethylene glycol 3350, 17 gm, Oral, Daily, PRN Constipation, # 30 EA, Refills(s) 0, Pharmacy: [facility] #[facility], 165, cm, 11/16/24 14:56:00 EDT, Height/Length Dosing, 57.1, kg, 11/16/24 14:56:00 EDT, Weight Dosing Sodium Chloride 0.9% intravenous solution, 1,000 mL, Soln-IV, IV, Once, Stop date 11/16/24 15:11:00 EDT, STAT, Start date 11/16/24 15:11:00 EDT, Infuse over 61, minute(s) Basic Metabolic Panel CBC w/ Auto Diff CT Abdomen/Pelvis w/ Contrast CT Head or Brain w/o Contrast eGFR Extra SST Tube Hepatic Function Panel Lipase Level Oxygen Therapy PT & PTT Troponin 0 Hr. UA with Cult Rflx XR Chest Single View Future Appointments Appointment Date:01/25/2025 03:00:00 PM Scheduled Provider:Remington CURTIS, Pao Lemus Location:[facility] Appointment Type:URO Office Visit [facility] 05-13-2025 Telephone encounter Note* Telephone Encounter - Sinai Castanon MD - 11/14/2024 6:16 PM EDT Spoke to patient. Had spinal tap today. Ortiz was placed, because patient was unable to void. Unable to cath more than 100ml. Had difficulty with cathing - felt like something was gripping. Current silicone cath is much more comfortable than last ortiz. Able to have BM without pain. Will proceed with SPT placement by IR and then subsequent SNM stage 1. All questions and concerns were addressed. Sinai Castanon MD [facility]05-13-2025 Miscellaneous Notes* Telephone Encounter - Sinai Castanon MD - 11/14/2024 6:16 PM EDT Spoke to patient. Had spinal tap today. Ortiz was placed, because patient was unable to void. Unable to cath more than 100ml. Had difficulty with cathing - felt like something was gripping. Current silicone cath is much more comfortable than last ortiz. Able to have BM without pain. Will proceed with SPT placement by IR and then subsequent SNM stage 1. All questions and concerns were addressed. Sinai Castanon MD [facility] NoteHNO ID: [id number] Author: DUDLEY FALCON RN Service: ? Author Type: Registered Nurse Type: Progress Notes Filed: 11/10/2024 13:31 Note Text: [facility] Patient ID with two (2) identifiers verified by: name and by Dudley Falcon RN Allergies reviewed and updated: Yes Current pain intensity is: 0 on a 0-10 pain scale. Any concerns about safety in the home/falls: Not at risk for falls REASON FOR VISIT: Catheter Insert:Indwelling Urethral Procedure: PVR 205 ml, emptied bladder for 275 ml of clear, yellow urine. Per Dr. Castanon, The new 14F straight ortiz was inserted using sterile technique. The balloon was inflated to 10CC with sterile water. Ortiz attached to leg bag with stat-lock and Rubén straps. The patient tolerated the procedure well. Comments:N/A Plan:Return in one month. Dr. Castanon will follow up with pt next week. Dudley Falcon RN [facility] History of Present illness Narrative* Dudley Falcon RN - 11/10/2024 1:25 PM EDT [facility]IS[facility] Patient ID with two (2) identifiers verified by: name and by Dudley Falcon RN Allergies reviewed and updated: Yes Current pain intensity is: 0 on a 0-10 pain scale. Any concerns about safety in the home/falls: Not at risk for falls REASON FOR VISIT: Catheter Insert:Indwelling Urethral Procedure: PVR 205 ml, emptied bladder for 275 ml of clear, yellow urine. Per Dr. Castanon, The new14F straight ortiz was inserted using sterile technique. The balloon was inflated to 10CC with sterile water. Ortiz attached to leg bag with stat-lock and Rubén straps. The patient tolerated the procedure well. Comments:N/A Plan:Return in one month. Dr. Castanon will follow up with pt next week. Dudley Falcon RN documented in this encounterS[facility] Telephone encounter Note * Telephone Encounter - Miryam Haney RN - 11/10/2024 10:42 AM EDT Spoke with patient Cath removed in clinic on 11/07 States that she has been voiding 50-100ml since then. Additionally, she cathed herself twice since then for approximately 100ml each. States that yesterday pm she started having difficulty voiding onher own. She self cathed and only got 5cc out. As instructed in clinic she did a baclofen suppository, went to bed and then awoke and was able to void at 2am. She got up in the morning at 0830 and was unable to void. Self cathed for zero and did another suppository without success. States her abdomen is full like she has a lot of urine in it and slightly distended. She is not currently in any discomfort. PO has been 32 oz this AM ER precautions discussed. NV appt. Made in [facility] for 1pm for PVR check, ISC education, and possible ortiz reinsert.message sent to Dr. Castanon who is in the OR today. Patient appreciative and agrees to plan. Declines further questions at this time [facility]05-09-2025 Miscellaneous Notes* Telephone Encounter - Miryam Haney RN - 11/10/2024 10:42 AM EDT Spoke with patient Cath removed in clinic on 11/07 States that she has been voiding 50-100ml since then. Additionally, she cathed herself twice since then for approximately 100ml each. States that yesterday pm she started having difficulty voiding onher own. She self cathed and only got 5cc out. As instructed in clinic she did a baclofen suppository, went to bed and then awoke and was able to void at 2am. She got up in the morning at 0830 and was unable to void. Self cathed for zero and did another suppository without success. States her abdomen is full like she has a lot of urine in it and slightly distended. She is not currently in any discomfort. PO has been 32 oz this AM ER precautions discussed. NV appt. Made in [facility] for 1pm for PVR check, ISC education, and possible ortiz reinsert.message sent to Dr. Castanon who is in the OR today. Patient appreciative and agrees to plan. Declines further questions at this time * Telephone Encounter - Priscilla Gan RN - 11/10/2024 8:44 AM EDT Patient calling States she has had decreased urine output since yesterday evening Since dinner time yesterday until 2 a.m. she was not able to urinate She finally voided 100 cc around 2 a.m. This morning she is unable to urinate and only has drops when she attempts to self cath Has drank 480 cc so far today Used baclofen suppository around 7:30 this morning She feels distended, has lower abdominal pressure Estimates yesterdays fluid intake to be around 70 oz States she had 900 cc urine output yesterday Asking for recommendations She can be reached at home number, may leave a message GO TO THE EMERGENCY ROOM OR CALL 911 IF: * You develop any new symptoms * Your condition worsens * You are concerned or anxious about your condition for any other reason. If you have any questions, call back. documented in this encounterS[facility] Telephone encounter Note * Telephone Encounter - Priscilla Gan RN - 11/10/2024 8:44 AM EDT Patient calling States she has had decreased urine output since yesterday evening Since dinner time yesterday until 2 a.m. she was not able to urinate She finally voided 100 cc around 2 a.m. This morning she is unable to urinate and only has drops when she attempts to self cath Has drank 480 cc so far today Used baclofen suppository around 7:30 this morning She feels distended, has lower abdominal pressure Estimates yesterdays fluid intake to be around 70 oz States she had 900 cc urine output yesterday Asking for recommendations She can be reached at home number, may leave a message GO TO THE EMERGENCY ROOM OR CALL 911 IF: * You develop any new symptoms * Your condition worsens * You are concerned or anxious about your condition for any other reason. If you have any questions, call back. [facility]05-06-2025 NoteHNO ID: [id number] Author: LISA HERNANDEZ RN Service: ? Author Type: Registered Nurse Type: Progress Notes Filed: 11/07/2024 15:38 Note Text: Ortiz removed. [facility] tolerated well.[facility] History of Present illness Narrative* Lisa Hernandez RN - 11/07/2024 1:14 PM EDT Ortiz removed. Pt tolerated well. * Sinai Castanon MD - 11/07/2024 11:00 AM EDT Images from the original note were not included. [facility] NEW PATIENT CLINIC NOTE SERVICE DATE: 11/07/2024 SERVICE TIME: 10:49 AM NAME: Sinai Lockwood CHIEF COMPLAINT: interstitial cystitis, urinary retention, neurogenic bladder HISTORY OF PRESENT ILLNESS: Sinai Lockwood is a 29 year old F P0 presenting with IC and urinary retention. 2020 ?bladder suspension Dx with IC/BPS Jul 2020 by outside provider. Doing behavioral mod, exercises, stress management. Had 6 mo relief with hydrodistension and cocktail of heparin, DMSO, kenalog and dilation of midurethral stricture. Capacity reportedly 300cc 2021 - robotic hyst for endometriosis with hydrodistension 12/02/21 - cysto with hydrodistension - capacity improved to 600ml, no hunners lesions. She had initial severe pain [id number] - robotic hyst for endometriosis with hydrodistension 11/05/24 underwent cysto, hydrodistension, instillation of bladder cocktail Subsequent retention 500ml and bladder pain. CT A/P 09/15/24 negative for filling defects, masses, hydro, stones Started on mirabegron for bladder spasms Then started ISC in the office Urine cytology 07/27/24 neg S/p cysto, HD, instillation bladder cocktail for IC 09/05 - this helped Dx based on UTI symptoms with neg culture, urinary frequency and bladder pain, bloating Seen in [facility] ED 09/15 Ortiz placed, 500cc drained. Has had 2 episodes of complete urinary retention. Was doing ISC but was unable to do this due to pain after the emg for neuro eval. Now with ortiz and her pelvic and right hip pain has resolved. Was put on timed voids and ISC, which was going well until she had EMG and developed nerve pain. Cathed on a schedule every 4-6 hours, not post void. Occ had difficulty with cathing and often had difficulty removing the catheter. Has pain during BM with ortiz catheter in place. Pain in the urethral area prior to and during BM. Has not had any bladder function testing. Last HD went to 300cc, small bladder +ELLIE, leaks more with IC flare Undergoing MS workup now S/p vag hyst 2 years ago for endometriosis Pain with sexual activity, including clitoral stimulation that makes her whole pelvis hurt and penetration The patient has undergone the following evaluation and treatments: Cystoscopy: no hunners lesions, capacity 300ml, 600ml after hydrodistension Behavioral modifications, IC diet, etc: yes, helps PFPT: made it worse Hydroxyzine: yes, improvement for short period Amitriptyline: yes, improvement switched to cymbalta by neurology Elmiron: yes, bad AE Vaginal baclofen/valium: valium 10mg/baclofen 5mg suppositories Anticholinergics/B3 agonist: mirabegron, trospium - severe AE, vesicare - severe AE but helped Hydrodistension: yes, multiple Fulguration of Hunner's lesions: n/a Bladder botox injections: no Pelvic floor botox: no Pudendal nerve block: no Sacral neuromodulation: no Urethral lidocaine instillations: yes Office bladder instillations: yes - some improvement Cyclosporine: noOSH Chart Review: 11 min BASILIA: Yes URGENCY: Yes UI: occ PADS: 1-2 thin FREQUENCY: every 1-2 hours with feeling of incomplete emptying NOCTURIA: 1 -3 per night STRAINING TO VOID: Yes EMPTIES COMPLETELY: No UTI: 3-4 past 12 months FLUIDS: 32-64 oz water Caffeine: none SEXUALLY ACTIVE: no DYSPAREUNIA: YES PREGNANCIES: none Post-menopause: no Have you had a hysterectomy:YES Postmenopausal bleeding:No Sense of vaginal bulge:NO HEMATURIA HX: Yes STONES: No GI: Constipation- using stool softeners Do you have any new weakness,balance or coordination problems:NO Do you have a history of any diagnosed back or Neurological problems:YES PAST MEDICAL HISTORY PAST MEDICAL HISTORY Diagnosis Date Bladder pain BV (bacterial vaginosis) Dysuria Mononeuropathy Muscle spasm Nerve pain OAB (overactive bladder) Pelvic floor dysfunction Urinary retention PAST SURGICAL HISTORY PAST SURGICAL HISTORY Procedure Laterality Date CYSTOSCOPY 09/05/2024 DILATION OF URETHRAL STRICTURE HYSTERECTOMY 2021 TONSILLECTOMY HX FAMILY HISTORY FAMILY HISTORY Problem Relation Age of Onset Multiple Sclerosis Other Maternal aunt & great aunt SOCIAL HISTORY Social History Tobacco Use Smoking status: Never Smokeless tobacco: Never Vaping Use Vaping status: current everyday user Substances: Nicotine MEDICATIONS: Current Outpatient Medications Medication Sig nitrofurantoin monohydrate and macrocrystal (MACROBID) 100 mg capsule Take 1 capsule by mouth every12 hours. DULoxetine (CYMBALTA) 30 mg capsule Take 30mg once daily for 7 days and increase to 30mg twice a day after (Patient taking differently: 30 mg. Take 30mg once daily for 7 days and increase to 30mg twice a day after (starting on 11.09.24)) DIFLUCAN 150 mg tablet Take 150 mg by mouth. 150 mg = 1 tab(s), Oral, q72hr, # 4 tab(s), Refills(s)5, Pharmacy: [facility], 154, cm, 10/19/24 12:48:00 EDT, Height/Length Dosing, 56.1, kg, 10/19/24 12:48:00 EDT, Weight Dosing No current facility-administered medications for this visit. CURRENT ALLERGIES: Allergies As of Date: 11/07/2024 Allergen Noted Reaction LATEX 11/01/2024 Hives PENICILLINS 11/01/2024 Hives PROPOLIS (BEE GLUE) 11/01/2024 Itching Fully Assessed 11/07/2024 OBJECTIVE PHYSICAL EXAM: Patient declined a java technical manager There were no vitals filed for this visit. There is no height or weight on file to calculate BMI. General: No acute distress, well appearing Abdomen: Soft, NT, nondistended Extremities: Normal range of motion, no LE edema : External genitalia: Normal appearing, well estrogenized, no skin lesions Urethra: Ortiz catheter in place with clear yellow urine Bladder: Nontender Vagina: Normal appearing, minimal discharge, no cysts or masses. Pelvic Floor Musculature: 3/5 TTP throughout Anus and perineum grossly nl POP-Q: Prolapse noted: No PVR: n/a- ortiz Imaging MRV pelvis 10/25/20 The kidneys are unremarkable. No renal lesions. No hydronephrosis. Abnormal focal area of small tubular like structures, likely representing varicosities, in the subcutaneous soft tissues of the right anterior abdominal wall superficial to the right rectus abdominalmusculature. These are also present in the inguinal regions and at the labia. Visualized portion of the bowel is unremarkable. ASSESSMENT and PLAN: 29 year old female with multifactorial pelvic pain including IC/PBS and PFD, neurogenic bladder secondary to likely MS (in the process of a diagnosis) with suspected DESD. ASSESSMENT/PLAN: 1. Neurogenic bladder - ICD9: 596.54, ICD10: N31.9 (primary diagnosis) Undergoing neurology evaluation, most likely MS. Suspect DSD based on obstructive voiding and difficulty with ISC. Remove ortiz catheter today and resume ISC Cath/voiding diary Plan for Interstim stage 1/2. 2. Screening for genitourinary condition - ICD9: V81.6, ICD10: Z13.89 - UA DIP, URINE (POC) 3. Endometriosis - ICD9: 617.9, ICD10: N80.9 Possible recurrent / persistent endo? Had near resolution of symptoms after TLH with endo excision 2020 - CONSULT TO MINIMALLY INVASIVE GYNECOLOGIC SURGERY 4. Retention of urine - ICD9: 788.20, ICD10: R33.9 See NGB 5. High-tone pelvic floor dysfunction in female - ICD9: 629.89, ICD10: M62.89 Restart vaginal baclofen suppositories Consider PFPT with [facility] and/or PF injections in the future 6. Dyspareunia - mulitfactorial Use baclofen suppos prior, lubrication All of the patients questions and concerns were discussed in detail. STAFF ATTESTATION I have personally interviewed and examined this patient and we discussed the recommendations in detail. I agree with twine reeling machine operator and have edited the note. Sinai Castanon MD [facility] Electronically signed I spent a total of 70 minutes on the date of the service which included preparing to see the patient, [id number] patient care, completing clinical documentation, performing a medically appropriate examination, counseling and educating the patient/family/caregiver, ordering medications, tests, or p rocedures, and care coordination (not separately reported). [facility] NoteHNO ID: [id number] Author: SINAI CASTANON MD Service: ? Author Type: Physician Type: Progress Notes Filed: 11/07/2024 15:38 Note Text: [facility] NEW PATIENT CLINIC NOTE SERVICE DATE: 11/07/2024 SERVICE TIME: 10:49 AM NAME: Sinai Lockwood CHIEF COMPLAINT: interstitial cystitis, urinary retention, neurogenic bladder HISTORY OF PRESENT ILLNESS: Sinai Lockwood is a 29 year old F P0 presenting with IC and urinary retention. 2020 ?bladder suspension Dx with IC/BPS Jul 2020 by outside provider. Doing behavioral mod, exercises, stress management. Had 6 mo relief with hydrodistension and cocktail of heparin, DMSO, kenalog and dilation of midurethral stricture. Capacity reportedly 300cc 2021 - robotic hyst for endometriosis with hydrodistension 12/02/21 - cysto with hydrodistension - capacity improved to 600ml, no hunners lesions. She had initial severe pain [id number] - robotic hyst for endometriosis with hydrodistension 11/05/24 underwent cysto, hydrodistension, instillation of bladder cocktail Subsequent retention 500ml and bladder pain. CT A/P 09/15/24 negative for filling defects, masses, hydro, stones Started on mirabegron for bladder spasms Then started ISC in the office Urine cytology 07/27/24 neg S/p cysto, HD, instillation bladder cocktail for IC 09/05 - this helped Dx based on UTI symptoms with neg culture, urinary frequency and bladder pain, bloating Seen in [facility] ED 09/15 Ortiz placed, 500cc drained. Has had 2 episodes of complete urinary retention. Was doing ISC but was unable to do this due to pain after the emg for neuro eval. Now with ortiz and her pelvic and right hip pain has resolved. Was put on timed voids and ISC, which was going well until she had EMG and developed nerve pain. Cathed on a schedule every 4-6 hours, not post void. Occ had difficulty with cathing and often had difficulty removing the catheter. Has pain during BM with ortiz catheter in place. Pain in the urethral area prior to and during BM. Has not had any bladder function testing. Last HD went to 300cc, small bladder +ELLIE, leaks more with IC flare Undergoing MS workup now S/p vag hyst 2 years ago for endometriosis Pain with sexual activity, including clitoral stimulation that makes her whole pelvis hurt and penetration The patient has undergone the following evaluation and treatments: Cystoscopy: no hunners lesions, capacity 300ml, 600ml after hydrodistension Behavioral modifications, IC diet, etc: yes, helps PFPT: made it worse Hydroxyzine: yes, improvement for short period Amitriptyline: yes, improvement switched to cymbalta by neurology Elmiron: yes, bad AE Vaginal baclofen/valium: valium 10mg/baclofen 5mg suppositories Anticholinergics/B3 agonist: mirabegron, trospium - severe AE, vesicare - severe AE but helped Hydrodistension: yes, multiple Fulguration of Hunner's lesions: n/a Bladder botox injections: no Pelvic floor botox: no Pudendal nerve block: no Sacral neuromodulation: no Urethral lidocaine instillations: yes Office bladder instillations: yes - some improvement Cyclosporine: noOSH Chart Review: 11 min BASILIA: Yes URGENCY: Yes UI: occ PADS: 1-2 thin FREQUENCY: every 1-2 hours with feeling of incomplete emptying NOCTURIA: 1 -3 per night STRAINING TO VOID: Yes EMPTIES COMPLETELY: No UTI: 3-4 past 12 months FLUIDS: 32-64 oz water Caffeine: none SEXUALLY ACTIVE: no DYSPAREUNIA: YES PREGNANCIES: none Post-menopause: no Have you had a hysterectomy:YES Postmenopausal bleeding:No Sense of vaginal bulge:NO HEMATURIA HX: Yes STONES: No GI: Constipation- using stool softeners Do you have any new weakness,balance or coordination problems:NO Do you have a history of any diagnosed back or Neurological problems:YES PAST MEDICAL HISTORY PAST MEDICAL HISTORY Diagnosis Date Bladder pain BV (bacterial vaginosis) Dysuria Mononeuropathy Muscle spasm Nerve pain OAB (overactive bladder) Pelvic floor dysfunction Urinary retention PAST SURGICAL HISTORY PAST SURGICAL HISTORY Procedure Laterality Date CYSTOSCOPY 09/05/2024 DILATION OF URETHRAL STRICTURE HYSTERECTOMY 2021 TONSILLECTOMY HX FAMILY HISTORY FAMILY HISTORY Problem Relation Age of Onset Multiple Sclerosis Other Maternal aunt AND great aunt SOCIAL HISTORY Social History Tobacco Use Smoking status: Never Smokeless tobacco: Never Vaping Use Vaping status: current everyday user Substances: Nicotine MEDICATIONS: Current Outpatient Medications Medication Sig nitrofurantoin monohydrate and macrocrystal (MACROBID) 100 mg capsule Take 1 capsule by mouth every 12 hours. DULoxetine (CYMBALTA) 30 mg capsule Take 30mg once daily for 7 days and increase to 30mg twice a day after (Patient taking differently: 30 mg. Take 30mg once daily for (more content not included)...[facility] 11-02-2024 Note* Addendum Note - Amanda Alvarado MD - 11/02/2024 12:55 PM EDT Addended by: AMANDA ALVARADO on: 11/02/2024 12:55 PM Modules accepted: Level of Service [facility]05-01-[facility] Miscellaneous Notes* Addendum Note - Amanda Alvarado MD - 11/02/2024 12:55 PM EDTAddended by: AMANDA ALVARADO on: 11/02/2024 12:55 PM Modules accepted: Level of Service documented in this encounterS[facility]05-01-2025 Instructions* Patient Instructions* Bola Cooely MD - 11/02/2024 9:26 AM EDT It was a pleasure seeing you today. We reviewed your images and our ongoing evaluation for possiblemultiple sclerosis/other WOOL BROKER demyelinating diseases Recommendations: -Stop amitryptiline -Start duloxetine 30mg once daily for 7 days. Increase to 30mg twice a day afterwards -Consider starting magnesium oxide 400mg daily for migraine prevention. We will discuss possible vitamin D supplementation after your lab results -To schedule your lumbar puncture/spinal tap please call [phone] -Obtain labs we ordered for you -Follow up with urology -Follow up with us in one month around 12/07/2024 documented in this [facility]25 NoteHNO ID: [id number] Author: AMANDA ALVARAOD MD Service: ? Author Type: Resident Type: Progress Notes Filed: 11/02/2024 12:55 Note Text: Neurology Outpatient Clinic History and Physical Clinic Preceptor: Amanda Alvarado MD Reason for Evaluation: Evaluation for MS HPI: Sinai Lockwood is a left-handed, 29 year old female from [place], [place] who [facility] with a chief complaint of possible MS. Past medical history significant for: -Pelvic pain, possible neuropathy + laser uterosacral nerve ablation, urinary issues, intersitial cystitis, endometriosis s/p laparotomy 2019, urinary retention, bacterial vaginosis, migraine w visual aura, hx tonsillectomy. Long hx pelvic pain + neuropathic pain in R labial region to RLE and R back with inability to walk at times due to pain (not due to weakness). Hysterectomy 2019 for endometriosis (ovaries retained). No hx of unilateral weakness, vision changes >24 hours. Does report lower pelvic mid back squeezing sensation + overall fatigue. Pain described as bladder aching/squeezing along with radiating burning/zapping pain down inward portion of R thigh. However worsened after urological procedure 09/05/2024 Has seen urology with multiple cystoscopies 2019, hydro distension cystoscopy 09/05/2024), cystourethroscopy + dilation of urethral stricture 07/2020. On/off amitriptyline, mirabegron, Tolterodine + baclofen, diazepam suppositories for mixed urinary symptoms. Previously done pelvic floor therapy as well. Currently on amitryptiline, mirabegron + baclofen, diazepam suppositories. Off tolterodine Pt reports new sudden onset of urinary retention started 09/2024 after recent cystoscopy with hydrodistension on 09/05/2024. Had an indwelling ortiz post procedure which was weaned to self catheterization but now back to indwelling ortiz over the past three weeks. Had ortiz catheter twice (now currently in for about 3 weeks). Worsened radiating leg pain with weakness 2/2 pain after urological procedure 09/05/2024 Underwent MRI brain 09/2024 with a non enhancing T2 L frontal subcortical lesion seen. MRI lbxxsjcx-vswkipbs-vnzjfv w/wo late October 2024 w/o enhancement/chronic L5-S1 changes seen.Did have a lumbar MRI w/o in 2020 by [facility]. Maternal hx of MS great aunt, aunt. Underwent MRI brain 09/2024 and MRI [id number]-sxlinftt-zewhwa w/wo late October 2024.Did have a lumbar MRI w/o in 2020 by [facility]. Had EMG several weeks ago as well for neuropathic pain and specifically testing the pudendal nerve which was reportedly normal. 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 Other neurological issues include intermittent bifrontal headache described as throbbing with visual aura and photo/phonophobia. Since adolescence, used to have worsened nausea/vomitting when younger but improved now. Negative for red flag SNOOP criteria. Happens once a week lasting for several hours. Partially relieved with otc acetaminophen. HPI most recent clinic note by Dr. Pao Macedo 09/18/24 below: CURRENT OUTPATIENT MEDICATIONS Current Outpatient Medications Medication Sig diazepam (VALIUM ORAL) Take by mouth. baclofen 10 mg diazePAM 10 mg lidocaine 2% vaginal suppository (CPD) Use 1 suppository vaginally daily at bedtime. amitriptyline (ELAVIL) 25 mg tablet Take 25 mg by mouth once daily. baclofen 10 mg tablet Take 10 mg by mouth three times a day. DIFLUCAN 150 mg tablet Take 150 mg by mouth. 150 mg = 1 tab(s), Oral, q72hr, # 4 tab(s), Refills(s) 5, Pharmacy: [id number], 154, cm, 10/19/24 12:48:00 EDT, Height/Length Dosing, 56.1, kg, 10/19/24 12:48:00 EDT, Weight Dosing No current facility-administered medications for this visit. MEDICAL HISTORY PAST MEDICAL HISTORY Diagnosis Date Bladder pain BV (bacterial vaginosis) Dysuria Mononeuropathy Muscle spasm Nerve pain OAB (overactive bladder) Pelvic floor dysfunction Urinary retention SURGICAL HISTORY PAST SURGICAL HISTORY Procedure Laterality Date CYSTOSCOPY 09/05/2024 DILATION OF URETHRAL STRICTURE HYSTERECTOMY TONSILLECTOMY HX SOCIAL HISTORY FAMILY HISTORY FAMILY HISTORY Problem Relation Age of Onset Multiple Sclerosis Other Maternal aunt AND great aunt ALLERGIES ALLERGIES Allergen Reactions Latex Hives Penicillins Hives Propolis (Bee Glue) Itching REVIEW OF SYSTEMS: (negative except for those indicated in bold) Review of Systems Constitutional: Positive for fatigue. Negative for appetite change, fever, recent unintentional weight loss, recent weight gain and viral type illness. Skin: Negative. HENT: Negative. Musculoskeletal: Positive for back pain. Negative for arthralgias, myalgias, muscle weakness, neck pain and neck stiffness. Eyes: Negative. Respiratory: Negative. Cardiovascular: Negative. (more content not included)...[facility] History of Present illness Narrative* Bola Cooley MD - 11/02/2024 8:11 AM EDT Images from the original note were not included. Neurology Outpatient Clinic History and Physical Clinic Preceptor: Amanda Alvarado MD Reason for Evaluation: Evaluation for MS HPI: Sinai Lockwood is a left-handed, 29 year old female from [place], [place] who [facility] with a chief complaint of possible MS. Past medical history significant for: -Pelvic pain, possible neuropathy + laser uterosacral nerve ablation, urinary issues, intersitial cystitis, endometriosis s/p laparotomy 2019, urinary retention, bacterial vaginosis, migraine w visual aura, hx tonsillectomy. Long hx pelvic pain + neuropathic pain in R labial region to RLE and R back with inability to walk at times due to pain (not due to weakness). Hysterectomy 2019 for endometriosis (ovaries retained). No hx of unilateral weakness, vision changes >24 hours. Does report lower pelvic mid back squeezing sensation + overall fatigue. Pain described as bladder aching/squeezing along with radiating burning/zapping pain down inward portion of R thigh. However worsened after urological procedure 09/05/2024 Has seen urology with multiple cystoscopies 2019, hydro distension cystoscopy 09/05/2024), cystourethroscopy + dilation of urethral stricture 07/2020. On/off amitriptyline, mirabegron, Tolterodine + baclofen, diazepam suppositories for mixed urinary symptoms. Previously done pelvic floor therapy aswell. Currently on amitryptiline, mirabegron + baclofen, diazepam suppositories. Off tolterodine Pt reports new sudden onset of urinary retention started 09/2024 after recent cystoscopy with hydrodistension on 09/05/2024. Had an indwelling ortiz post procedure which was weaned to self catheterization but now back to indwelling ortiz over the past three weeks. Had ortiz catheter twice (now currently in for about 3 weeks). Worsened radiating leg pain with weakness 2/2 pain after urological procedure 09/05/2024 Underwent MRI brain 09/2024 with a non enhancing T2 L frontal subcortical lesion seen. MRI qwjurspl-fmnxahyo-xyotce w/wo late October 2024 w/o enhancement/chronic L5-S1 changes seen.Did have a lumbar MRI w/o in 2020 by [facility]. Maternal hx of MS great aunt, aunt. Underwent MRI brain 09/2024 and MRI rbkuqftn-jstmbiud-qqsrzp w/wo late October 2024.Did have a lumbarMRI w/o in 2020 by [facility]. Had EMG several weeks ago as well for neuropathic pain and specifically testing the pudendal nerve which was reportedly normal. 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 Other neurological issues include intermittent bifrontal headache described as throbbing with visual aura and photo/phonophobia. Since adolescence, used to have worsened nausea/vomitting when youngerbut improved now. Negative for red flag SNOOP criteria. Happens once a week lasting for several hours. Partially relieved with otc acetaminophen. HPI most recent clinic note by Dr. Pao Macedo 09/18/24 below: CURRENT OUTPATIENT MEDICATIONS Current Outpatient Medications Medication Sig diazepam (VALIUM ORAL) Take by mouth. baclofen 10 mg diazePAM 10 mg lidocaine 2% vaginal suppository (CPD) Use 1 suppository vaginally daily at bedtime. amitriptyline (ELAVIL) 25 mg tablet Take 25 mg by mouth once daily. baclofen 10 mg tablet Take 10 mg by mouth three times a day. DIFLUCAN 150 mg tablet Take 150 mg by mouth. 150 mg = 1 tab(s), Oral, q72hr, # 4 tab(s), Refills(s)5, Pharmacy: [id number], 154, cm, 10/19/24 12:48:00 EDT, Height/Length Dosing, 56.1, kg, 10/19/24 12:48:00 EDT, Weight Dosing No current facility-administered medications for this visit. MEDICAL HISTORY PAST MEDICAL HISTORY Diagnosis Date Bladder pain BV (bacterial vaginosis) Dysuria Mononeuropathy Muscle spasm Nerve pain OAB (overactive bladder) Pelvic floor dysfunction Urinary retention SURGICAL HISTORY PAST SURGICAL HISTORY Procedure Laterality Date CYSTOSCOPY 09/05/2024 DILATION OF URETHRAL STRICTURE HYSTERECTOMY TONSILLECTOMY HX SOCIAL HISTORY FAMILY HISTORY FAMILY HISTORY Problem Relation Age of Onset Multiple Sclerosis Other Maternal aunt & great aunt ALLERGIES ALLERGIES Allergen Reactions Latex Hives Penicillins Hives Propolis (Bee Glue) Itching REVIEW OF SYSTEMS: (negative except for those indicated in bold) Review of Systems Constitutional: Positive for fatigue. Negative for appetite change, fever, recent unintentional weight loss, recent weight gain and viral type illness. Skin: Negative. HENT: Negative. Musculoskeletal: Positive for back pain. Negative for arthralgias, myalgias, muscle weakness, neck pain and neck stiffness. Eyes: Negative. Respiratory: Negative. Cardiovascular: Negative. Gastrointestinal: Negative. Genitourinary: Positive for frequent urinary infection, dysuria, incomplete voiding or urinary retention, incontinence, indwelling catheter, overactive bladder and urinary urgency. Negative for amenorrhea, breast pain, chronic kidney disease, excessive menstruation, fertility problems or miscarriages, frequent urination, galactorrhea, hematuria, irregular menses, kidney stones, menopausal, nocturia, use of BCP and use of HRT. Hematologic/Lymphatic: Negative. Allergic/Immunologic: Positive for frequent infections. Negative for allergic reaction, autoimmune disease and immunosuppression treatment. Psychiatric: Negative. PHYSICAL EXAM: BP 135/77 Pulse 83 Wt 124 lb 1.9 oz (56.3kg) General: General appearance: Awake and alert. No distress. Cooperative with exam. Skin: No rash or jaundice. HEENT: Atraumatic. Anicteric. Lungs: No respiratory distress or wheezing. Normal chest rise. Heart: No peripheral edema. Abdomen: Soft, non tender. Extremities: No edema. No obvious deformity. Ortiz in place running down LLE Musculoskeletal: No obvious joint swelling. Psych: Affect appropriate. Neurological Examination Mental Status: Alert, oriented to person, place and time and Follows commands. Cranial Nerves: CNII: Visual acuity normal, Visual fonseca full to confrontation, No APD noted on exam CNIII, IV, : Pupils equal, round and reactive to light, full extraoccular movements, without nystagmus CN V: Facial sensation intact bilaterally to fine touch and pinprick, masseter 5/5 CN VII: Facial muscles symmetric and strong, No noted facial droop CN VIII: Hears finger rub well bilaterally CN IX: Gag Reflex Not examined CN X: Palate elevates symmetrically CN XI: Full strength shoulder shrug bilaterally CN XII: Tongue protrusion full and midline Tone Tone - Normal Bulk - no muscle atrophy Power Upper Extremity Right Left Shoulder Abd (Axil C5-C6) 5/5 5/5 Elbow Flx (Musc C5-C6) 5/5 5/5 Elbow Ext (Radial C7-C8) 5/5 5/5 Wrist Flx (Md/Ul C6-T1) 5/5 5/5 Wrist Ext (Radial C6-C8) 5/5 5/5 Finger Flex (C7-C8) 5/5 5/5 Finger Ext (C7-C8) 5/5 5/5 Finger Abd (C8-T1) 5/5 5/5 Finger Add (C8-T1) 5/5 5/5 Lower Extremity Right Left Hip Flx (Lum Plx L1/L2/L3) 4/5 5/5 Hip Ext (Sciatic L5-S1) 5/5 5/5 Knee Flx (Sciatic L5/S1) 5/5 5/5 Knee Ext (Femoral L3/L4) 5/5 5/5 Dorsiflexion (Peroneal L5) 5/5 5/5 Plantar Flx (Tibial S1) 5/5 5/5 Neck Right Left Neck Flexors 5/5 5/5 Neck Extensors 5/5 5/5 Reflexes Right Left Triceps 2/4 2/4 Bicep 2/4 2/4 BrRad 2/4 2/4 Knee 1/4 2/4 Ankle 2/4 2/4 Clonus: Bilateral Negative Babinski: Bilateral Downward response Olivas: Bilateral Negative Tromner: Bilateral Negative Sensation Sensation: Intact to pin-prick [pain], light touch, and vibratory sense slightly decreased on RLE extremity on lateral LLE and medial LLE Gait and Coordination Coordination: Finger-to- nose-finger intact bilaterally and Qiuc-ue-dirz intact bilaterally. Rapid Alternating Movements: Normal bilaterally Romberg: Negative Gait: Patient's gait is normal can heel and toe walk can tandem walk LABS/DATA: IMAGING: MRI brain w/wo 09/29/202410/2024 MRI cervical +thoracic+lumbar spine w/wo Small amount of endplate degenerative signal with mild disc bulge at C5-C6, mild facet changes L4-L5 w/o significant canal or foraminal narrowing, and disc dessication and disc bulge wihtout significant canal or foraminal narrowing at L5-S1. 2020 MRI lumbar spine w/o contrast Central disc protrusion at the L5-S1 level without thecal sac ornerve root compression. No evidence of stenosis. ASSESSMENT AND RECOMMENDATIONS: Sinai Lockwood is a 29 year old female with past medical history significant for urinary retention, recurrent utis, interstitial cystitis, overactive bladder, and migraine with visual aura who presentsfor evaluation for possible multiple sclerosis. Neuro exam significant for large + small fiber slight decreased sensation in RLE on lateral/medial distally. Other LMN signs in RLE (1+ patellar) although preserved achilles reflex long without foot clonus. Doubt if L frontal WM lesion correlated with urinary retention or RLE pain/sensory changes (not in correct in typical anatomic location to explain these). However, demyelinating disease is possible given lesions and symptoms. Lack of enhancement on September 2024 brain mri with similar timing onset of s ymptoms would argue against active demyelinating etiology but MOGAD among ddx. Could also be non-specific small vessel disease findings especially in setting of long hx of migraine w visual aura. Other etiology RLE neuropathic pain and decreased sensation could be a subacute plexus/PNS injury 2/2 bladder distension vs compressive neuropathy vs post infectious etiology. Although OSH NCS/EMG done late 09/2024 without reported abnormalities, it may have been too early to see electrographic changes. Additionally medication induced urinary retention is possible (however has been on her medications chronically off/on without clear time associated onset with small med adjustments). Although amitryptiline typically first line for interstitial cystitis, pt reports intermediate benefit. Given frequent migraine w visual aura and possible neuropathic symptoms, trial of duloxetine to help treat all 3and decreased cholinergic side effect profile may be beneficial. Exam above not consistent with a myelopathic process and L5-S1 disc protrusion seen on neuroimagingnot significant enough to cause a radiculopathy/myelopathy. Would benefit from additional serum/CSF testing to evaluate for WOOL BROKER inflammatory disorder/mimickersalong with scheduled [facility] urology referral. Would also benefit from obtaining OSH NCS/EMG records #Hx overactive bladder and interstitial cystitis and urinary tract infections and urinary retention #Demyelinating disease of WOOL BROKER #Migraine with visual aura #Neuropathic pain Plan: -Patient to ask for OSH NCS/EMG report and will send mychart/bring to follow up -CDS1, VITD 25 levels, HIV, late lyme AB -CSF routine, cx, OCB, [place], VZV IGG/IGM, CMV PCR -Urology follow up scheduled -Mg Ox 400mg for migraine preventative -Stop amitryptiline -> duloxetine 30mg daily for 7 days then 30mg BID after -Follow up in 1 month to discuss testing results above Discussed with staff, Dr. Amanda Cooley MD Neurology PGY-3 11/02/24 8:12 AM CC: Referring Physician: No referring provider defined for this encounter. PCP: Bebeto Carty APRN [facility] [address] [place] [address] NEUROLOGY STAFF ADDENDUM I have reviewed the history and physical examination obtained and documented by the resident and I personally participated in the menard components of history and examination. I have also personally reviewed the MRI images of brain, cervical, thoracic and lumbar spine. and agree with the above. I agree with the resident's plan as noted above which was formulated with my direct input. I have directly edited the above note. Amanda Alvarado MD Staff Neurologist [facility] 11/02/2024 12:54 PM documented [facility] NotePatient Education Urology Interstitial Cystitis Interstitial cystitis is inflammation of the bladder. This condition is also known as painful bladder syndrome. This may cause pain in the bladder area as well as a frequent and urgent need to urinate. The bladder is an organ that stores urine after the urine is made in the kidneys. The severity of interstitial cystitis can vary from person to person. You may have flare-ups, and then your symptoms may go away for a while. For many people, it becomes a long-term (chronic) problem. What are the causes? The cause of this condition is not known. What increases the risk? The following factors may make you more likely to develop this condition: ??? Being female. ??? Having fibromyalgia. ??? Having irritable bowel syndrome (IBS). ??? Having endometriosis. ??? Having chronic fatigue syndrome. This condition may be aggravated by: ??? Stress. ??? Smoking. ??? Spicy foods. What are the signs or symptoms? Symptoms of interstitial cystitis vary, and they can change management lead time. Symptoms may include: ??? Discomfort or pain in the bladder area, which is in the lower abdomen. Pain can range from mildto severe. The pain may change in intensity as the bladder fills with urine or as it empties. ??? Pain in the pelvic area, between the hip bones. ??? A constant urge to urinate. ??? Frequent urination. ??? Pain during urination. ??? Pain during sex. ??? Blood in the urine. ??? Feeling tired (fatigue). For women, symptoms often get worse during menstruation. How is this diagnosed? This condition is diagnosed based on your symptoms, your medical history, and a physical exam. Yourhealth care provider may need to rule out other conditions and may order other tests, such as: ??? Urine tests. ??? Cystoscopy. For this test, a tool similar to a very thin telescope is used to look into your bladder. ??? Biopsy. This involves taking a sample of tissue from the bladder to be examined under a microscope. How is this treated? There is no cure for this condition, but treatment can help you control your symptoms. Work closelywith your health care provider to find the most effective treatments for you. Treatment options mayinclude: ??? Medicines to relieve pain and reduce how often you feel the need to urinate. This treatment mayinclude: ? A procedure where a small amount of medicine that eases irritation is put inside your bladder through a catheter (bladder instillation). ??? Lifestyle changes, such as changing your diet or taking steps to control stress. ??? Physical therapy. This may include: ? Exercises to help relax the pelvic floor muscles. ? Massage to relax tight muscles (myofascial release). ??? Learning ways to control when you urinate (bladder training). ??? Using a device that provides electrical stimulation to your nerves, which can relieve pain (neuromodulation therapy). The device is placed on your back, where it blocks the nerves that cause you to feel pain in your bladder area. ??? A procedure that stretches your bladder by filling it with air or fluid (hydrodistention). ??? Surgery. This is rare. It is only done for extreme cases, if other treatments do not help. Follow these instructions at home: Lifestyle ??? Learn and practice relaxation techniques, such as deep breathing and muscle relaxation. ??? Get care for your body and mental well-being, such as: ? Cognitive behavioral therapy (CBT). This therapy changes the way you think or act in response to different situations. This may improve how you feel. ? Seeing a mental health therapist to evaluate and treat depression, if necessary. ??? Work with your health care provider on other ways to manage pain. Acupuncture may be helpful. ??? Avoid drinking alcohol. ??? Do not use any products that contain nicotine or tobacco. These products include cigarettes, chewing tobacco, and vaping devices, such as e-cigarettes. If you need help quitting, ask your health care provider. Eating and drinking ??? Make dietary changes as recommended by your health care provider. You may need to avoid: ? Spicy foods. ? Foods that contain a lot of potassium. ??? Limit your intake of drinks that increase your urge to urinate. These include alcohol and caffeinated drinks like soda, coffee, and tea. Bladder training ??? Use bladder training techniques as directed. Techniques may include: ? Urinating at scheduled times. ? Training yourself to delay urination. ??? Keep a bladder diary. ? Write down the times you urinate and any symptoms that you have. This can help you find out whichfoods, liquids, or activities make your symptoms worse. ? Use your bladder diary to schedule bathroom trips. If you are away from home, plan to be near a bathroom at each of your scheduled times. ??? Make sure that you urinate just before you leave the house and just (more content not included)...[facility]04-11-2025 Hospital Discharge instructions Patient Education 10/13/2024 14:16:39 Acute Urinary Retention, Female Acute Urinary Retention, Female Acute urinary retention is a condition in which a person is unable to pass urine or can only pass alittle urine. This condition can happen suddenly and last for a short time. If left untreated, it can become long-term (chronic) and result in kidney damage or other serious complications. What are the causes? This condition may be caused by: Obstruction or narrowing of the tube that drains the bladder (urethra). This may be caused by surgery, problems with nearby organs, or injury to the bladder or urethra. Problems with the nerves in the bladder. Pelvic organ prolapse. Tumors in the area of the pelvis, bladder, or urethra. Vaginal childbirth. Bladder or urinary tract infection. Constipation. Certain medicines. What increases the risk? This condition is more likely to develop in women over age 50. Other chronic health conditions can increase the risk of acute urinary retention. These include: Diseases such as multiple sclerosis. Spinal cord injuries. Diabetes. Degenerative cognitive conditions, such as delirium or dementia. Psychological conditions. A woman may hold her urine due to trauma or because she does not want to use the bathroom. History of preexisting urinary retention. History of prior pelvic surgery, incontinence surgery, or radical pelvic surgery. What are the signs or symptoms? Symptoms of this condition include: Trouble urinating. Pain in the lower abdomen. How is this diagnosed? This condition is diagnosed based on a physical exam and your medical history. You may also have other tests, including: An ultrasound of the bladder or kidneys or both. Blood tests. A urine analysis. Additional tests may be needed, such as a CT scan, MRI, and kidney or bladder function tests. How is this treated? Treatment for this condition may include: Medicines. Placing a thin, sterile tube (catheter) into the bladder to drain urine out of the body. This is called an indwelling urinary catheter. After it is inserted, the catheter is held in place with a small balloon that is filled with sterile water. Urine drains from the catheter into a collection bag outside of the body. Behavioral therapy. Treatment for other conditions. If needed, you may be treated in the hospital for kidney function problems or to manage other complications. Follow these instructions at home: Medicines Take rtay-ikq-xogoibc and prescription medicines only as told by your health care provider. Avoid certain medicines, such as decongestants, antihistamines, and some prescription medicines. Do not take any medicine unless your health care provider approves. If you were prescribed an antibiotic medicine, take it as told by your health care provider. Do notstop using the antibiotic even if you start to feel better. General instructions Do not use any products that contain nicotine or tobacco. These products include cigarettes, chewing tobacco, and vaping devices, such as e-cigarettes. If you need help quitting, ask your health careprovider. Drink enough fluid to keep your urine pale yellow. If you have an indwelling urinary catheter, follow the instructions from your health care provider. Monitor any changes in your symptoms. Tell your health care provider about any changes. If instructed, monitor your blood pressure at home. Report changes as told by your health care provider. Keep all follow-up visits. This is important. Contact a health care provider if: You have uncomfortable bladder contractions that you cannot control (spasms). You leak urine with the spasms. Get help right away if: You have chills or a fever. You have blood in your urine. You have a catheter and the following happens: ?Your catheter stops draining urine. ?Your catheter falls out. Summary Acute urinary retention is a condition in which a person is unable to pass urine or can only pass alittle urine. If left untreated, this can result in kidney damage or other serious complications. One cause of this condition may be obstruction or narrowing of the tube that drains the bladder (urethra). This may be caused by surgery, problems with nearby organs, or injury to the bladder or urethra. Treatment may include medicines and placement of an indwelling urinary catheter. Monitor any changes in your symptoms. Tell your health care provider about any changes. This information is not intended to replace advice given to you by your health care provider. Make sure you discuss any questions you have with your health care provider. Document Revised: 03/12/2021 Document Reviewed: 03/12/2021 [employer] Patient Education 2023 [employer]. Follow Up Care 10/13/2024 12:47:05 With:Pao Macedo Address: [address], [address] [phone] Business (1) When:10/16/2024 14:05:45 [facility] 04-11-2025 NoteED Patient Education Note Obstetrics and Gynecology Acute Urinary Retention, Female Acute urinary retention is a condition in which a person is unable to pass urine or can only pass alittle urine. This condition can happen suddenly and last for a short time. If left untreated, it can become long-term (chronic) and result in kidney damage or other serious complications. What are the causes? This condition may be caused by: ??? Obstruction or narrowing of the tube that drains the bladder (urethra). This may be caused by surgery, problems with nearby organs, or injury to the bladder or urethra. ??? Problems with the nerves in the bladder. ??? Pelvic organ prolapse. ??? Tumors in the area of the pelvis, bladder, or urethra. ??? Vaginal childbirth. ??? Bladder or urinary tract infection. ??? Constipation. ??? Certain medicines. What increases the risk? This condition is more likely to develop in women over age 50. Other chronic health conditions can increase the risk of acute urinary retention. These include: ??? Diseases such as multiple sclerosis. ??? Spinal cord injuries. ??? Diabetes. ??? Degenerative cognitive conditions, such as delirium or dementia. ??? Psychological conditions. A woman may hold her urine due to trauma or because she does not wantto use the bathroom. ??? History of preexisting urinary retention. ??? History of prior pelvic surgery, incontinence surgery, or radical pelvic surgery. What are the signs or symptoms? Symptoms of this condition include: ??? Trouble urinating. ??? Pain in the lower abdomen. How is this diagnosed? This condition is diagnosed based on a physical exam and your medical history. You may also have other tests, including: ??? An ultrasound of the bladder or kidneys or both. ??? Blood tests. ??? A urine analysis. ??? Additional tests may be needed, such as a CT scan, MRI, and kidney or bladder function tests. How is this treated? Treatment for this condition may include: ??? Medicines. ??? Placing a thin, sterile tube (catheter) into the bladder to drain urine out of the body. This is called an indwelling urinary catheter. After it is inserted, the catheter is held in place with a small balloon that is filled with sterile water. Urine drains from the catheter into a collection bag outside of the body. ??? Behavioral therapy. ??? Treatment for other conditions. If needed, you may be treated in the hospital for kidney function problems or to manage other complications. Follow these instructions at home: Medicines ??? Take xzmx-ahc-gemgspd and prescription medicines only as told by your health care provider. Avoid certain medicines, such as decongestants, antihistamines, and some prescription medicines. Do nottake any medicine unless your health care provider approves. ??? If you were prescribed an antibiotic medicine, take it as told by your health care provider. Donot stop using the antibiotic even if you start to feel better. General instructions ??? Do not use any products that contain nicotine or tobacco. These products include cigarettes, chewing tobacco, and vaping devices, such as e-cigarettes. If you need help quitting, ask your health care provider. ??? Drink enough fluid to keep your urine pale yellow. ??? If you have an indwelling urinary catheter, follow the instructions from your health care provider. ??? Monitor any changes in your symptoms. Tell your health care provider about any changes. ??? If instructed, monitor your blood pressure at home. Report changes as told by your health care provider. ??? Keep all follow-up visits. This is important. Contact a health care provider if: ??? You have uncomfortable bladder contractions that you cannot control (spasms). ??? You leak urine with the spasms. Get help right away if: ??? You have chills or a fever. ??? You have blood in your urine. ??? You have a catheter and the following happens: ? Your catheter stops draining urine. ? Your catheter falls out. Summary ??? Acute urinary retention is a condition in which a person is unable to pass urine or can only pass a little urine. If left untreated, this can result in kidney damage or other serious complications. ??? One cause of this condition may be obstruction or narrowing of the tube that drains the bladder(urethra). This may be caused by surgery, problems with nearby organs, or injury to the bladder or urethra. ??? Treatment may include medicines and placement of an indwelling urinary catheter. ??? Monitor any changes in your symptoms. Tell your health care provider about any changes. This information is not intended to replace advice given to you by your health care provider. Make sure you discuss any questions you have with your health care provider. Document Revised: 03/12/2021 Document Reviewed: 03/12/2021 [employer] Patient Education ? 2023 [employer] 10-06-2024 Telephone encounter Note* Telephone Encounter - Neisha Huynh MA - 10/06/2024 1:42 PM EDT [facility], Medical Records Recv'd, 09-18-24. Record are scanned into the pt's chart. The paper copy in Dr. Castanon's work bin for review. [facility]04-04-2025 Miscellaneous Notes* Telephone Encounter - Neisha Huynh MA - 10/06/2024 1:42 PM EDT [facility], Medical Records Recv'd, 09-18-24. Record are scanned into the pt's chart. The paper copy in Dr. Castanon's work bin for review. * Telephone Encounter - Neisha Huynh MA - 10/06/2024 11:54 AM EDT We received from [facility], Date of Medical Records Recv'd, 09-18-24. I gave the papers to PSS to scan into the Pt's chart. Then I will place in Dr. Castanon's work bin the papers to review. This Pt is already scheduled for a Consult appt with Dr. Castanon for 11-14-24. documented [facility] Telephone encounter Note * Telephone Encounter - Neisha Huynh MA - 10/06/2024 11:54 AM EDT We received from [facility], Date of Medical Records Recv'd, 09-18-24. I gave the papers to PSS to scan into the Pt's chart. Then I will place in Dr. Castanon's work bin the papers to review. This Pt is already scheduled for a Consult appt with Dr. Castanon for 11-14-24. [facility]03-26-2025 NotePatient Education Obstetrics and Gynecology Overactive Bladder, Adult Overactive bladder is a condition in which a person has a sudden and frequent need to urinate. A person might also leak urine if he or she cannot get to the bathroom fast enough (urinary incontinence). Sometimes, symptoms can interfere with work or social activities. What are the causes? Overactive bladder is associated with poor nerve signals between your bladder and your brain. Your bladder may get the signal to empty before it is full. You may also have very sensitive muscles thatmake your bladder squeeze too soon. This condition may also be caused by other factors, such as: ??? Medical conditions: ? Urinary tract infection. ? Infection of nearby tissues. ? Prostate enlargement. ? Bladder stones, inflammation, or tumors. ? Diabetes. ? Muscle or nerve weakness, especially from these conditions: ? A spinal cord injury. ? Stroke. ? Multiple sclerosis. ? Parkinson's disease. ??? Other causes: ? Surgery on the uterus or urethra. ? Drinking too much caffeine or alcohol. ? Certain medicines, especially those that eliminate extra fluid in the body (diuretics). ? Constipation. What increases the risk? You may be at greater risk for overactive bladder if you: ??? Are an older adult. ??? Smoke. ??? Are going through menopause. ??? Have prostate problems. ??? Have a neurological disease, such as stroke, dementia, Parkinson's disease, or multiple sclerosis (MS). ??? Eat or drink alcohol, spicy food, caffeine, and other things that irritate the bladder. ??? Are overweight or obese. What are the signs or symptoms? Symptoms of this condition include a sudden, strong urge to urinate. Other symptoms include: ??? Leaking urine. ??? Urinating 8 or more times a day. ??? Waking up to urinate 2 or more times overnight. How is this diagnosed? This condition may be diagnosed based on: ??? Your symptoms and medical history. ??? A physical exam. ??? Blood or urine tests to check for possible causes, such as infection. You may also need to see a health care provider who specializes in urinary tract problems. This is called a urologist. How is this treated? Treatment for overactive bladder depends on the cause of your condition and whether it is mild or severe. Treatment may include: ??? Bladder training, such as: ? Learning to control the urge to urinate by following a schedule to urinate at regular intervals. ? Doing Kegel exercises to strengthen the pelvic floor muscles that support your bladder. ??? Special devices, such as: ? Biofeedback. This uses sensors to help you become aware of your body's signals. ? Electrical stimulation. This uses electrodes placed inside the body (implanted) or outside the body. These electrodes send gentle pulses of electricity to strengthen the nerves or muscles that control the bladder. ? Women may use a plastic device, called a pessary, that fits into the vagina and supports the bladder. ??? Medicines, such as: ? Antibiotics to treat bladder infection. ? Antispasmodics to stop the bladder from releasing urine at the wrong time. ? Tricyclic antidepressants to relax bladder muscles. ? Injections of botulinum toxin type A directly into the bladder tissue to relax bladder muscles. ??? Surgery, such as: ? A device may be implanted to help manage the nerve signals that control urination. ? An electrode may be implanted to stimulate electrical signals in the bladder. ? A procedure may be done to change the shape of the bladder. This is done only in very severe cases. Follow these instructions at home: Eating and drinking ??? Make diet or lifestyle changes recommended by your health care provider. These may include: ? Drinking fluids throughout the day and not only with meals. ? Cutting down on caffeine or alcohol. ? Eating a healthy and balanced diet to prevent constipation. This may include: ? Choosing foods that are high in fiber, such as beans, whole grains, and fresh fruits and vegetables. ? Limiting foods that are high in fat and processed sugars, such as fried and sweet foods. Lifestyle ??? Lose weight if needed. ??? Do not use any products that contain nicotine or tobacco. These include cigarettes, chewing tobacco, and vaping devices, such as e-cigarettes. If you need help quitting, ask your health care provider. General instructions ??? Take qgel-zmb-exbqbli and prescription medicines only as told by your health care provider. ??? If you were prescribed an antibiotic medicine, take it as told by your health care provider. Donot stop taking the antibiotic even if you start to feel better. ??? Use any implants or pessary as told by your health care provider. ??? If needed, wear pads to absorb urine leakage. ??? Keep a log to track how much and when you drink, and whe (more content not included)...[facility]03-17-2025 NotePatient Education Obstetrics and Gynecology Acute Urinary Retention, Female Acute urinary retention is when a person cannot pee (urinate) at all, or can only pee a little. This can come on all of a sudden. If it is not treated, it can lead to kidney problems or other seriousproblems. What are the causes? A problem with the tube that drains the bladder (urethra). ??? Problems with the nerves in the bladder. ??? The organs in the area between your hip bones (pelvis) slipping out of place (prolapse). ??? Tumors. ??? The of a baby through the vagina. ??? An infection. ??? Having trouble pooping (constipation). ??? Certain medicines. What increases the risk? Women over age 50 are more at risk. Other conditions also can increase risk. These include: ??? Diseases, such as multiple sclerosis. ??? Injury to the spinal cord. ??? Diabetes. ??? A condition that affects the way the brain works, such as dementia. ??? Holding back urine due to trauma or because you do not want to use the bathroom. ??? History of not being able to pee or peeing too little. ??? Having had surgery in the area between your hip bones. What are the signs or symptoms? Trouble peeing. ??? Pain in the lower belly. How is this treated? Treatment for this condition may include: ??? Medicines. ??? Placing a thin, germ-free tube (catheter) into the bladder to drain pee out of the body. ??? Therapy to treat mental health conditions. ??? Treatment for conditions that may cause this. If needed, you may be treated in the hospital for kidney problems or to manage other problems. Follow these instructions at home: Medicines ??? Take jfxi-ixa-[id number] and prescription medicines only as told by your doctor. Ask your doctor what medicines you should stay away from. ??? If you were given an antibiotic medicine, take it as told by your doctor. Do not stop taking iteven if you start to feel better. General instructions ??? Do not smoke or use any products that contain nicotine or tobacco. If you need help quitting, ask your doctor. ??? Drink enough fluid to keep your pee pale yellow. ??? If you were sent home with a tube that drains the bladder, take care of it as told by your doctor. ??? Watch for changes in your symptoms. Tell your doctor about them. ??? If told, keep track of changes in your blood pressure at home. Tell your doctor about them. ??? Keep all follow-up visits. Contact a doctor if: ??? You have spasms in your bladder that you cannot stop. ??? You leak pee when you have spasms. Get help right away if: ??? You have chills or a fever. ??? You have blood in your pee. ??? You have a tube that drains pee from the bladder and these things happen: ? The tube stops draining pee. ? The tube falls out. Summary ??? Acute urinary retention is when you cannot pee at all or you pee too little. ??? If this is not treated, it can cause kidney problems or other serious problems. ??? If you were sent home with a tube (catheter) that drains pee from the bladder, take care of it as told by your doctor. ??? Watch for changes in your symptoms. Tell your doctor about them. This information is not intended to replace advice given to you by your health care provider. Make sure you discuss any questions you have with your health care provider. Document Revised: 03/12/2021 Document Reviewed: 03/12/2021 [employer] Patient Education ? 2023 [employer] 09-17-2024 Hospital Discharge instructions Patient Education 09/17/2024 18:48:36 Ortiz Catheter Care, Female-[facility] [place] (Custom) Ortiz Catheter Care, Female A Ortiz catheter is a soft, flexible tube that is placed into the bladder to drain urine. The catheter has a balloon to hold it inside the bladder. A Ortiz catheter may be inserted if: You leak urine or are not able to control when you urinate (urinary incontinence). You are not able to urinate when you need to (urinary retention). You had surgery. You have certain medical conditions, such as multiple sclerosis, dementia, or a spinal cord injury. To Prevent Infection: 1. Wash your hands with soap and water before and after handling your catheter. 2. Using mild soap and warm water on a clean washcloth; twice a day. Clean the area on your body closest to the catheter insertion site using a front to back motion, moving away from the catheter. Never wipe toward the catheter because this could sweep bacteria up into the urethra and cause infection. Remove all traces of soap. Pat the area dry with a clean towel. No tub baths. No lotions, powders, or sprays unless directed by your physician. 3. Keep the tube secure. Do not let the tube pull or catch when you are moving around. Attach the catheter to your leg so there is no tension on the catheter. The bag can be wore on the thigh. Use adhesive tape or a leg strap. If you are using adhesive tape, remove any sticky residue left behind by the previous tape you used. 4. Replace wet leg straps with dry ones. 5. Wear cotton underwear to absorb moisture and keep port drier. 6. Keep the drainage bag below the level of the bladder, but keep it off the floor. 7. Check throughout the day to be sure the catheter is working and urine is draining freely. Make sure the tubing does not become kinked or looped. 8. Do not pull on the catheter or try to remove it. Pulling could damage internal tissues. TAKING CARE OF THE DRAINAGE BAGS You will be given two drainage bags to take home. One is a large overnight drainage bag, and the other is a smaller leg bag that fits underneath clothing. You may wear the overnight bag at any time, but you should never wear the smaller leg bag at night, unless directed by your physician. Follow the instructions below for how to empty and change your drainage bags. Emptying the Drainage Bag You must empty your drainage bag when it is ? full. 1. Wash your hands with soap and water before and after handling your catheter. 2. Keep the drainage bag below your hips, below the level of your bladder. This stops urine from going back into the tubing and into your bladder. 3. Hold the dirty bag over the toilet or a clean container. 4. Open the pour spout at the bottom of the bag and empty the urine into the toilet or container. Do not let the pour spout touch the toilet, container, or any other surface. Doing so can place bacteria on the bag, which can cause an infection. 5. Clean the pour spout with a gauze pad or cotton ball that has rubbing alcohol on it. 6. Close the pour spout. 7. Attach the bag to your leg with adhesive tape or a leg strap. Changing the Drainage Bag 1. Wash your hands with soap and water before and after handling your catheter. 2. Pinch off the rubber catheter so that urine does not spill out. 3. Disconnect the catheter tube from the drainage tube at the connection valve. Do not let the tubes touch any surface. 4. Clean the end of the catheter tube with an alcohol wipe. Use a different alcohol wipe to clean the end of the drainage tube. 5. Connect the catheter tube to the drainage tube of the clean drainage bag. 6. Attach the new bag to the leg with adhesive tape or a leg strap. Avoid attaching the new bag tootightly. 7. Place a cap on the drainage bag not in use and store in a clean towel. SEEK MEDICAL CARE IF: Your urine is cloudy or smells. Your catheter starts to leak. Your catheter falls out or is pulled out. You have pain, swelling, redness, or pus where the catheter enters the body. You have pain in the abdomen, legs, lower back, or bladder. You have a fever of 100.4 F (38 C) or higher You see pink, red, dark, coffee colored, or pus-like urine. You have nausea, vomiting, or chills. You are not feeling better in 2 to 3 days or you are feeling worse. You are not draining urine into the bag or your bladder feels full. MAKE SURE YOU: Understand the reason you have the catheter. Understand and follow these instructions to care for the catheter. Will watch your condition. Drink 6-8 glasses of water or liquids per day to keep your urine clear. Avoid Caffeinated drinks. They can irritate the bladder and cause bladder spasms. Keep your follow up appointments and call with any concerns. 09/17/2024 18:48:36 Acute Urinary Retention, Female Acute Urinary Retention, Female Acute urinary retention is a condition in which a person is unable to pass urine or can only pass alittle urine. This condition can happen suddenly and last for a short time. If left untreated, it can become long-term (chronic) and result in kidney damage or other serious complications. What are the causes? This condition may be caused by: Obstruction or narrowing of the tube that drains the bladder (urethra). This may be caused by surgery, problems with nearby organs, or injury to the bladder or urethra. Problems with the nerves in the bladder. Pelvic organ prolapse. Tumors in the area of the pelvis, bladder, or urethra. Vaginal childbirth. Bladder or urinary tract infection. Constipation. Certain medicines. What increases the risk? This condition is more likely to develop in women over age 50. Other chronic health conditions can increase the risk of acute urinary retention. These include: Diseases such as multiple sclerosis. Spinal cord injuries. Diabetes. Degenerative cognitive conditions, such as delirium or dementia. Psychological conditions. A woman may hold her urine due to trauma or because she does not want to use the bathroom. History of preexisting urinary retention. History of prior pelvic surgery, incontinence surgery, or radical pelvic surgery. What are the signs or symptoms? Symptoms of this condition include: Trouble urinating. Pain in the lower abdomen. How is this diagnosed? This condition is diagnosed based on a physical exam and your medical history. You may also have other tests, including: An ultrasound of the bladder or kidneys or both. Blood tests. A urine analysis. Additional tests may be needed, such as a CT scan, MRI, and kidney or bladder function tests. How is this treated? Treatment for this condition may include: Medicines. Placing a thin, sterile tube (catheter) into the bladder to drain urine out of the body. This is called an indwelling urinary catheter. After it is inserted, the catheter is held in place with a small balloon that is filled with sterile water. Urine drains from the catheter into a collection bag outside of the body. Behavioral therapy. Treatment for other conditions. If needed, you may be treated in the hospital for kidney function problems or to manage other complications. Follow these instructions at home: Medicines Take flzi-gnr-inoamlr and prescription medicines only as told by your health care provider. Avoid certain medicines, such as decongestants, antihistamines, and some prescription medicines. Do not take any medicine unless your health care provider approves. If you were prescribed an antibiotic medicine, take it as told by your health care provider. Do notstop using the antibiotic even if you start to feel better. General instructions Do not use any products that contain nicotine or tobacco. These products include cigarettes, chewing tobacco, and vaping devices, such as e-cigarettes. If you need help quitting, ask your health careprovider. Drink enough fluid to keep your urine pale yellow. If you have an indwelling urinary catheter, follow the instructions from your health care provider. Monitor any changes in your symptoms. Tell your health care provider about any changes. If instructed, monitor your blood pressure at home. Report changes as told by your health care provider. Keep all follow-up visits. This is important. Contact a health care provider if: You have uncomfortable bladder contractions that you cannot control (spasms). You leak urine with the spasms. Get help right away if: You have chills or a fever. You have blood in your urine. You have a catheter and the following happens: ?Your catheter stops draining urine. ?Your catheter falls out. Summary Acute urinary retention is a condition in which a person is unable to pass urine or can only pass alittle urine. If left untreated, this can result in kidney damage or other serious complications. One cause of this condition may be obstruction or narrowing of the tube that drains the bladder (urethra). This may be caused by surgery, problems with nearby organs, or injury to the bladder or urethra. Treatment may include medicines and placement of an indwelling urinary catheter. Monitor any changes in your symptoms. Tell your health care provider about any changes. This information is not intended to replace advice given to you by your health care provider. Make sure you discuss any questions you have with your health care provider. Document Revised: 03/12/2021 Document Reviewed: 03/12/2021 [employer] Patient Education 2023 [employer]. 09/17/2024 18:48:36 Interstitial Cystitis Interstitial Cystitis Interstitial cystitis is inflammation of the bladder. This condition is also known as painful bladder syndrome. This may cause pain in the bladder area as well as a frequent and urgent need to urinate. The bladder is an organ that stores urine after the urine is made in the kidneys. The severity of interstitial cystitis can vary from person to person. You may have flare-ups, and then your symptoms may go away for a while. For many people, it becomes a long-term (chronic) problem. What are the causes? The cause of this condition is not known. What increases the risk? The following factors may make you more likely to develop this condition: Being female. Having fibromyalgia. Having irritable bowel syndrome (IBS). Having endometriosis. Having chronic fatigue syndrome. This condition may be aggravated by: Stress. Smoking. Spicy foods. What are the signs or symptoms? Symptoms of interstitial cystitis vary, and they can change management lead time. Symptoms may include: Discomfort or pain in the bladder area, which is in the lower abdomen. Pain can range from mild to severe. The pain may change in intensity as the bladder fills with urine or as it empties. Pain in the pelvic area, between the hip bones. A constant urge to urinate. Frequent urination. Pain during urination. Pain during sex. Blood in the urine. Feeling tired (fatigue). For women, symptoms often get worse during menstruation. How is this diagnosed? This condition is diagnosed based on your symptoms, your medical history, and a physical exam. Yourhealth care provider may need to rule out other conditions and may order other tests, such as: Urine tests. Cystoscopy. For this test, a tool similar to a very thin telescope is used to look into your bladder. Biopsy. This involves taking a sample of tissue from the bladder to be examined under a microscope. How is this treated? There is no cure for this condition, but treatment can help you control your symptoms. Work closelywith your health care provider to find the most effective treatments for you. Treatment options mayinclude: Medicines to relieve pain and reduce how often you feel the need to urinate. This treatment may include: ?A procedure where a small amount of medicine that eases irritation is put inside your bladder through a catheter (bladder instillation). Lifestyle changes, such as changing your diet or taking steps to control stress. Physical therapy. This may include: ?Exercises to help relax the pelvic floor muscles. ?Massage to relax tight muscles (myofascial release). Learning ways to control when you urinate (bladder training). Using a device that provides electrical stimulation to your nerves, which can relieve pain (neuromodulation therapy). The device is placed on your back, where it blocks the nerves that cause you to feel pain in your bladder area. A procedure that stretches your bladder by filling it with air or fluid (hydrodistention). Surgery. This is rare. It is only done for extreme cases, if other treatments do not help. Follow these instructions at home: Lifestyle Learn and practice relaxation techniques, such as deep breathing and muscle relaxation. Get care for your body and mental well-being, such as: ?Cognitive behavioral therapy (CBT). This therapy changes the way you think or act in response to different situations. This may improve how you feel. ?Seeing a mental health therapist to evaluate and treat depression, if necessary. Work with your health care provider on other ways to manage pain. Acupuncture may be helpful. Avoid drinking alcohol. Do not use any products that contain nicotine or tobacco. These products include cigarettes, chewing tobacco, and vaping devices, such as e-cigarettes. If you need help quitting, ask your health careprovider. Eating and drinking Make dietary changes as recommended by your health care provider. You may need to avoid: ?Spicy foods. ?Foods that contain a lot of potassium. Limit your intake of drinks that increase your urge to urinate. These include alcohol and caffeinated drinks like soda, coffee, and tea. Bladder training Use bladder training techniques as directed. Techniques may include: ?Urinating at scheduled times. ?Training yourself to delay urination. Keep a bladder diary. ?Write down the times you urinate and any symptoms that you have. This can help you find out which foods, liquids, or activities make your symptoms worse. ?Use your bladder diary to schedule bathroom trips. If you are away from home, plan to be near a bathroom at each of your scheduled times. Make sure that you urinate just before you leave the house and just before you go to bed. General instructions Take mnuu-jwb-aeamtam and prescription medicines only as told by your health care provider. Try a warm or cool compress over your bladder for comfort. Avoid wearing tight clothing. Do exercises to relax your pelvic floor muscles as told by your physical therapist. Keep all follow-up visits. This is important. Where to find more information To find more information or a support group near you, visit: [facility] [facility]: urologyhealth.org Interstitial Cystitis Association: ichelp.org Contact a health care provider if you have: Symptoms that do not get better with treatment. Pain or discomfort that gets worse. More frequent urges to urinate. A fever. Get help right away if: You have no control over when you urinate. Summary Interstitial cystitis is inflammation of the bladder. This condition may cause pain in the bladder area as well as a frequent and urgent need to urinate. You may have flare-ups of the condition, and then it may go away for a while. For many people, it becomes a long-term (chronic) problem. There is no cure for interstitial cystitis, but treatment methods are available to control your symptoms. This information is not intended to replace advice given to you by your health care provider. Make sure you discuss any questions you have with your health care provider. Document Revised: 01/18/2021 Document Reviewed: 01/24/2021 [employer] Patient Education 2023 [employer]. Follow Up Care 09/17/2024 16:47:39 With:Pao Macedo Address:Unknown When:09/20/2024 18:38:58 With:BEBETO CARTY Address:Unknown When:Within 3 Day(s) [facility] 03-16-2025 NoteED Patient Education Note Ortiz Catheter Care, Female A Ortiz catheter is a soft, flexible tube that is placed into the bladder to drain urine. The catheter has a balloon to hold it inside the bladder. A Ortiz catheter may be inserted if: ??? You leak urine or are not able to control when you urinate (urinary incontinence). ??? You are not able to urinate when you need to (urinary retention). ??? You had surgery. ??? You have certain medical conditions, such as multiple sclerosis, dementia, or a spinal cord injury. To Prevent Infection: 1. Wash your hands with soap and water before and after handling your catheter. 2. Using mild soap and warm water on a clean washcloth; twice a day. ??? Clean the area on your body closest to the catheter insertion site using a front to back motion, moving away from the catheter. Never wipe toward the catheter because this could sweep bacteria upinto the urethra and cause infection. ??? Remove all traces of soap. Pat the area dry with a clean towel. No tub baths. No lotions, powders, or sprays unless directed by your physician. 3. Keep the tube secure. Do not let the tube pull or catch when you are moving around. ??? Attach the catheter to your leg so there is no tension on the catheter. The bag can be wore on the thigh. Use adhesive tape or a leg strap. If you are using adhesive tape, remove any sticky residue left behind by the previous tape you used. 4. Replace wet leg straps with dry ones. 5. Wear cotton underwear to absorb moisture and keep port drier. 6. Keep the drainage bag below the level of the bladder, but keep it off the floor. 7. Check throughout the day to be sure the catheter is working and urine is draining freely. Make sure the tubing does not become kinked or looped. 8. Do not pull on the catheter or try to remove it. Pulling could damage internal tissues. TAKING CARE OF THE DRAINAGE BAGS You will be given two drainage bags to take home. One is a large overnight drainage bag, and the other is a smaller leg bag that fits underneath clothing. You may wear the overnight bag at any time, but you should never wear the smaller leg bag at night, unless directed by your physician. Follow the instructions below for how to empty and change your drainage bags. Emptying the Drainage Bag You must empty your drainage bag when it is ? full. 1. Wash your hands with soap and water before and after handling your catheter. 2. Keep the drainage bag below your hips, below the level of your bladder. This stops urine from going back into the tubing and into your bladder. 3. Hold the dirty bag over the toilet or a clean container. 4. Open the pour spout at the bottom of the bag and empty the urine into the toilet or container. Do not let the pour spout touch the toilet, container, or any other surface. Doing so can place bacteria on the bag, which can cause an infection. 5. Clean the pour spout with a gauze pad or cotton ball that has rubbing alcohol on it. 6. Close the pour spout. 7. Attach the bag to your leg with adhesive tape or a leg strap. Changing the Drainage Bag 1. Wash your hands with soap and water before and after handling your catheter. 2. Pinch off the rubber catheter so that urine does not spill out. 3. Disconnect the catheter tube from the drainage tube at the connection valve. Do not let the tubes touch any surface. 4. Clean the end of the catheter tube with an alcohol wipe. Use a different alcohol wipe to clean the end of the drainage tube. 5. Connect the catheter tube to the drainage tube of the clean drainage bag. 6. Attach the new bag to the leg with adhesive tape or a leg strap. Avoid attaching the new bag tootightly. 7. Place a cap on the drainage bag not in use and store in a clean towel. SEEK MEDICAL CARE IF: ??? Your urine is cloudy or smells. ??? Your catheter starts to leak. ??? Your catheter falls out or is pulled out. ??? You have pain, swelling, redness, or pus where the catheter enters the body. ??? You have pain in the abdomen, legs, lower back, or bladder. ??? You have a fever of 100.4 F (38 C) or higher ??? You see pink, red, dark, coffee colored, or pus-like urine. ??? You have nausea, vomiting, or chills. ??? You are not feeling better in 2 to 3 days or you are feeling worse. ??? You are not draining urine into the bag or your bladder feels full. MAKE SURE YOU: ??? Understand the reason you have the catheter. ??? Understand and follow these instructions to care for the catheter. ??? Will watch your condition. ??? Drink 6-8 glasses of water or liquids per day to keep your urine clear. ??? Avoid Caffeinated drinks. They can irritate the bladder and cause bladder spasms. ??? Keep your follow up appointments and call with any concerns. Obstetrics and Gynecology Acute Urinary Retention, Female Acute urinary retention is a condition in which a person is (more content not included)...[facility]03-15-2025 Hospital Discharge instructions Patient Education 09/16/2024 02:24:41 Acute Urinary Retention, Female Acute Urinary Retention, Female Acute urinary retention is a condition in which a person is unable to pass urine or can only pass alittle urine. This condition can happen suddenly and last for a short time. If left untreated, it can become long-term (chronic) and result in kidney damage or other serious complications. What are the causes? This condition may be caused by: Obstruction or narrowing of the tube that drains the bladder (urethra). This may be caused by surgery, problems with nearby organs, or injury to the bladder or urethra. Problems with the nerves in the bladder. Pelvic organ prolapse. Tumors in the area of the pelvis, bladder, or urethra. Vaginal childbirth. Bladder or urinary tract infection. Constipation. Certain medicines. What increases the risk? This condition is more likely to develop in women over age 50. Other chronic health conditions can increase the risk of acute urinary retention. These include: Diseases such as multiple sclerosis. Spinal cord injuries. Diabetes. Degenerative cognitive conditions, such as delirium or dementia. Psychological conditions. A woman may hold her urine due to trauma or because she does not want to use the bathroom. History of preexisting urinary retention. History of prior pelvic surgery, incontinence surgery, or radical pelvic surgery. What are the signs or symptoms? Symptoms of this condition include: Trouble urinating. Pain in the lower abdomen. How is this diagnosed? This condition is diagnosed based on a physical exam and your medical history. You may also have other tests, including: An ultrasound of the bladder or kidneys or both. Blood tests. A urine analysis. Additional tests may be needed, such as a CT scan, MRI, and kidney or bladder function tests. How is this treated? Treatment for this condition may include: Medicines. Placing a thin, sterile tube (catheter) into the bladder to drain urine out of the body. This is called an indwelling urinary catheter. After it is inserted, the catheter is held in place with a small balloon that is filled with sterile water. Urine drains from the catheter into a collection bag outside of the body. Behavioral therapy. Treatment for other conditions. If needed, you may be treated in the hospital for kidney function problems or to manage other complications. Follow these instructions at home: Medicines Take [id number]-cks-vxlgehu and prescription medicines only as told by your health care provider. Avoid certain medicines, such as decongestants, antihistamines, and some prescription medicines. Do not take any medicine unless your health care provider approves. If you were prescribed an antibiotic medicine, take it as told by your health care provider. Do notstop using the antibiotic even if you start to feel better. General instructions Do not use any products that contain nicotine or tobacco. These products include cigarettes, chewing tobacco, and vaping devices, such as e-cigarettes. If you need help quitting, ask your health careprovider. Drink enough fluid to keep your urine pale yellow. If you have an indwelling urinary catheter, follow the instructions from your health care provider. Monitor any changes in your symptoms. Tell your health care provider about any changes. If instructed, monitor your blood pressure at home. Report changes as told by your health care provider. Keep all follow-up visits. This is important. Contact a health care provider if: You have uncomfortable bladder contractions that you cannot control (spasms). You leak urine with the spasms. Get help right away if: You have chills or a fever. You have blood in your urine. You have a catheter and the following happens: ?Your catheter stops draining urine. ?Your catheter falls out. Summary Acute urinary retention is a condition in which a person is unable to pass urine or can only pass alittle urine. If left untreated, this can result in kidney damage or other serious complications. One cause of this condition may be obstruction or narrowing of the tube that drains the bladder (urethra). This may be caused by surgery, problems with nearby organs, or injury to the bladder or urethra. Treatment may include medicines and placement of an indwelling urinary catheter. Monitor any changes in your symptoms. Tell your health care provider about any changes. This information is not intended to replace advice given to you by your health care provider. Make sure you discuss any questions you have with your health care provider. Document Revised: 03/12/2021 Document Reviewed: 03/12/2021 Elsevier Patient Education 2023 [employer]. Follow Up Care 09/15/2024 21:35:31 With:Pao Macedo Address: [address], [address] [address] [phone] Business (1) When:09/19/2024 With:BEBETO CARTY Address:Unknown When:Within 3 Day(s) [facility] 03-15-2025 NoteED Patient Education Note Obstetrics and Gynecology Acute Urinary Retention, Female Acute urinary retention is a condition in which a person is unable to pass urine or can only pass alittle urine. This condition can happen suddenly and last for a short time. If left untreated, it can become long-term (chronic) and result in kidney damage or other serious complications. What are the causes? This condition may be caused by: ??? Obstruction or narrowing of the tube that drains the bladder (urethra). This may be caused by surgery, problems with nearby organs, or injury to the bladder or urethra. ??? Problems with the nerves in the bladder. ??? Pelvic organ prolapse. ??? Tumors in the area of the pelvis, bladder, or urethra. ??? Vaginal childbirth. ??? Bladder or urinary tract infection. ??? Constipation. ??? Certain medicines. What increases the risk? This condition is more likely to develop in women over age 50. Other chronic health conditions can increase the risk of acute urinary retention. These include: ??? Diseases such as multiple sclerosis. ??? Spinal cord injuries. ??? Diabetes. ??? Degenerative cognitive conditions, such as delirium or dementia. ??? Psychological conditions. A woman may hold her urine due to trauma or because she does not wantto use the bathroom. ??? History of preexisting urinary retention. ??? History of prior pelvic surgery, incontinence surgery, or radical pelvic surgery. What are the signs or symptoms? Symptoms of this condition include: ??? Trouble urinating. ??? Pain in the lower abdomen. How is this diagnosed? This condition is diagnosed based on a physical exam and your medical history. You may also have other tests, including: ??? An ultrasound of the bladder or kidneys or both. ??? Blood tests. ??? A urine analysis. ??? Additional tests may be needed, such as a CT scan, MRI, and kidney or bladder function tests. How is this treated? Treatment for this condition may include: ??? Medicines. ??? Placing a thin, sterile tube (catheter) into the bladder to drain urine out of the body. This is called an indwelling urinary catheter. After it is inserted, the catheter is held in place with a small balloon that is filled with sterile water. Urine drains from the catheter into a collection bag outside of the body. ??? Behavioral therapy. ??? Treatment for other conditions. If needed, you may be treated in the hospital for kidney function problems or to manage other complications. Follow these instructions at home: Medicines ??? Take nxyz-ocv-mdxduma and prescription medicines only as told by your health care provider. Avoid certain medicines, such as decongestants, antihistamines, and some prescription medicines. Do nottake any medicine unless your health care provider approves. ??? If you were prescribed an antibiotic medicine, take it as told by your health care provider. Donot stop using the antibiotic even if you start to feel better. General instructions ??? Do not use any products that contain nicotine or tobacco. These products include cigarettes, chewing tobacco, and vaping devices, such as e-cigarettes. If you need help quitting, ask your health care provider. ??? Drink enough fluid to keep your urine pale yellow. ??? If you have an indwelling urinary catheter, follow the instructions from your health care provider. ??? Monitor any changes in your symptoms. Tell your health care provider about any changes. ??? If instructed, monitor your blood pressure at home. Report changes as told by your health care provider. ??? Keep all follow-up visits. This is important. Contact a health care provider if: ??? You have uncomfortable bladder contractions that you cannot control (spasms). ??? You leak urine with the spasms. Get help right away if: ??? You have chills or a fever. ??? You have blood in your urine. ??? You have a catheter and the following happens: ? Your catheter stops draining urine. ? Your catheter falls out. Summary ??? Acute urinary retention is a condition in which a person is unable to pass urine or can only pass a little urine. If left untreated, this can result in kidney damage or other serious complications. ??? One cause of this condition may be obstruction or narrowing of the tube that drains the bladder(urethra). This may be caused by surgery, problems with nearby organs, or injury to the bladder or urethra. ??? Treatment may include medicines and placement of an indwelling urinary catheter. ??? Monitor any changes in your symptoms. Tell your health care provider about any changes. This information is not intended to replace advice given to you by your health care provider. Make sure you discuss any questions you have with your health care provider. Document Revised: 03/12/2021 Document Reviewed: 03/12/2021 [employer] Patient Education ? 2023 [employer] 09-15-2024 Evaluation + Plan noteExtracted from: Title:ED Note Author:Jung Sandoval DO Date :09/15/24 Acute urinary retention (R33 .8: Other retention of urine) Orders: morphine, 2 mg = 1 mL, Injection, IV Push, Once, Stop date 09/15/24 23:01:00 EDT, STAT, Start date 09/15/24 23:01:00 EDT, 09/15/24 23:01:00 EDT ondansetron, 4 mg = 2 mL, Injection, IV Push, Once, Stop date 09/15/24 23:01:00 EDT, STAT, Start date 09/15/24 23:01:00 EDT, 09/15/24 23:01:00 EDT Basic Metabolic Panel Bladder Scan CBC w/ Auto Diff CT Abdomen/Pelvis w/ Contrast eGFR Hepatic Function Panel Lipase Level Saline Lock Insert U Beta Hcg Qual UA with Cult Rflx Urinary Catheter Insertion Future Appointments Appointment Date:11/13/2024 03:00:00 PM Scheduled Provider:Remington CURTIS, Pao Lemus Location:[facility] Appointment Type:URO Office Visit [facility] 03-06-2025 NoteProgress Note-Physician Patient: SINAI LOCKWOOD Age: 29 years Sex: Female : 1995 Associated Diagnoses: None Author: Fausto Roca MD Postoperative Information Postoperative disposition: Postoperative disposition: To PACU. Optimetrix number: Optimetrix number [id number]. Anesthetic utilized: General. Health Status Allergies: Allergic Reactions (Selected) Moderate Latex- Hives. Penicillin- Hives. Physical Examination Vital Signs 09/05/2024 15:53 EST Systolic Blood Pressure 117 mmHg Diastolic Blood Pressure 83 mmHg Mean Arterial Pressure, Monitered 94 mmHg 09/05/2024 15:53 EST Respiratory Rate 16 br/min 09/05/2024 14:29 EST Heart Rate Monitored 79 bpm SpO2 98 % 09/05/2024 14:29 EST Respiratory Rate 16 br/min Pain Assessment: Controlled. General: Awake, Alert, Appropriate. Respiratory: Adequate air exchange. Cardiovascular: Stable, Normal peripheral perfusion. Neurological: Normal sensory function, Normal motor function. Assessment Anesthetic outcome No anesthetic complications noted. Adequate pain relief. able to void without difficulty, able to ambulate with assist, tolerating PO intake, no N/V. Review / Management Condition: Stable. Plan Transfer/Discharge: Transfer/Discharge Discharge when meets criteria ( From PACU to floor ).[facility]:Result Comment: Electronically Signed By: Fausto Roca MD\.br\Date and Time Signed: 09/08/2507:45 [id number] Hospital Discharge instructions Follow Up Care 09/06/2024 15:47:18 With:Remington CURTIS, ALFONSO Saldana, URO Address: [address] [place] [phone] When: Unknown [facility] 03-04-2025 Hospital Discharge instructions Patient Education 09/05/2024 13:36:39 Post Op Patient Instructions - FT (CUSTOM) 09/05/2024 13:34:19 Hydrodistention of the Bladder, Care After Hydrodistention of the Bladder, Care After After hydrodistention of the bladder, it is common to have soreness and mild discomfort in your lower belly. It is also common to have: Mild pain when you pass urine. This should stop after a few minutes. This may last for up to a week. A small amount of blood in your urine. Follow these instructions at home: The instructions below may help you care for yourself at home. Your health care provider may give you more instructions. If you have questions, ask your health care provider. Medicines If you were given a sedative during your procedure, do not drive or use machines until your doctor says that it is safe. A sedative is a medicine that helps you relax. Take kvqy-zrn-piuhtqd and prescription medicines only as told by your health care provider. If you were prescribed antibiotics, take them as told by your doctor. Do not stop taking them even if you start to feel better. Lifestyle Do not smoke or use any products that contain nicotine or tobacco. If you need help quitting, ask your health care provider. Activity Return to your normal activities when your health care provider says that it is safe. You may have to avoid lifting. Ask your health care provider how much you can safely lift. Eating and drinking Follow instructions from your health care provider about what you may eat and drink. Drink enough fluid to keep your urine pale yellow. General instructions Keep all follow-up visits. This is important to get the results of your procedure. Contact a health care provider if: You have blood clots in your urine. You have pus in your urine. You have pain that gets worse or does not get better with medicine. Do this especially for pain when you urinate. You have difficulty passing urine. You feel like you will vomit or you vomit for more than 2 days after the procedure. You have a fever. Get help right away if: You have very bad pain in your belly. You cannot pass urine. You have chest pain or it is hard to breathe. You get swelling, pain, or both in your lower legs. These symptoms may be an emergency. Get help right away. Call 911. Do not wait to see if the symptoms will go away. Do not drive yourself to the hospital. Summary After this procedure, it is common to have soreness in your lower belly, mild pain when you pass urine, and a small amount of blood in your urine. Return to your normal activities when your health care provider says that it is safe. Contact a health care provider if you have pain that gets worse, have a fever, see blood clots in your urine, or it is difficult pass urine. Get help right away if you have very bad pain in your belly, cannot pass urine, feel it is hard to breathe, or get swelling and pain in the legs. This information is not intended to replace advice given to you by your health care provider. Make sure you discuss any questions you have with your health care provider. Document Revised: 10/27/2022 Document Reviewed: 10/26/2022 [employer] Patient Education 2023 [employer]. Follow Up Care 08/21/2024 11:53:48 With:Pao Macedo Address: [address] [place], [place] [address]dict N[address] [phone] Business (1) When: Unknown Comments:Office to call for followup appointment in 1-2 months [facility] 03-04-2025 Evaluation + Plan noteExtracted from: Title:EU- cysto, hydrodisten evla, instillation bladder cocktail Author:Pao Macedo MD Date:09/05/24 Impression and Plan Diagnosis Pain due to interstitial cystitis (UQT68-XJ N30.10, Working, Medical). Diagnosis Pain due to interstitial cystitis (LRL75-EB N30.10, Working, Medical). Extracted from: Title:ANES Pre-operative Note Author:Abelino CUTRIS, Fausto Morales. Date:09/05/24 Plan [place] [employer]esthesiologists (ASA) physical status classification: Class II. Anesthetic Preoperative Plan: Anesthesia General, and -TIVA. [facility] 03-04-2025 NotePatient Education - Text Urology Hydrodistention of the Bladder, Care After After hydrodistention of the bladder, it is common to have soreness and mild discomfort in your lower belly. It is also common to have: ??? Mild pain when you pass urine. This should stop after a few minutes. This may last for up to a week. ??? A small amount of blood in your urine. Follow these instructions at home: The instructions below may help you care for yourself at home. Your health care provider may give you more instructions. If you have questions, ask your health care provider. Medicines ??? If you were given a sedative during your procedure, do not drive or use machines until your doctor says that it is safe. A sedative is a medicine that helps you relax. ??? Take ysqb-avg-fcjwfzf and prescription medicines only as told by your health care provider. ??? If you were prescribed antibiotics, take them as told by your doctor. Do not stop taking them even if you start to feel better. Lifestyle ??? Do not smoke or use any products that contain nicotine or tobacco. If you need help quitting, ask your health care provider. Activity ??? Return to your normal activities when your health care provider says that it is safe. ??? You may have to avoid lifting. Ask your health care provider how much you can safely lift. Eating and drinking ??? Follow instructions from your health care provider about what you may eat and drink. ??? Drink enough fluid to keep your urine pale yellow. General instructions ??? Keep all follow-up visits. This is important to get the results of your procedure. Contact a health care provider if: ??? You have blood clots in your urine. ??? You have pus in your urine. ??? You have pain that gets worse or does not get better with medicine. Do this especially for painwhen you urinate. ??? You have difficulty passing urine. ??? You feel like you will vomit or you vomit for more than 2 days after the procedure. ??? You have a fever. Get help right away if: ??? You have very bad pain in your belly. ??? You cannot pass urine. ??? You have chest pain or it is hard to breathe. ??? You get swelling, pain, or both in your lower legs. These symptoms may be an emergency. Get help right away. Call 911. ??? Do not wait to see if the symptoms will go away. ??? Do not drive yourself to the hospital. Summary ??? After this procedure, it is common to have soreness in your lower belly, mild pain when you pass urine, and a small amount of blood in your urine. ??? Return to your normal activities when your health care provider says that it is safe. ??? Contact a health care provider if you have pain that gets worse, have a fever, see blood clots in your urine, or it is difficult pass urine. ??? Get help right away if you have very bad pain in your belly, cannot pass urine, feel it is hardto breathe, or get swelling and pain in the legs. This information is not intended to replace advice given to you by your health care provider. Make sure you discuss any questions you have with your health care provider. Document Revised: 10/27/2022 Document Reviewed: 10/26/2022 [employer] Patient Education ? 2023 [employer] 09-05-2024 NoteProgress Note-Physician Patient: SINAI LOCKWOOD Age: 29 years Sex: Female : 1995 Associated Diagnoses: None Author: Fausto Roca MD Preoperative Information Anesthesia history: Patient history: No prior anesthetic problems. Informed consent: Signed by patient. Re-evaluation prior to induction: Initial evaluation reviewed: No significant change. Review of Systems Respiratory: Negative except as documented in history of present illness. Cardiovascular: Negative except as documented in history of present illness. Health Status Allergies: Allergic Reactions (Selected) Moderate Latex- Hives. Penicillin- Hives., Allergies (2) Active Severity Reaction penicillin Moderate Hives Latex Moderate Hives Current medications: (Selected) Inpatient Medications Ordered Sodium Chloride 0.9% IV Jeanne 1000 mL 1,000 mL: 1,000 mL, IV, 150 mL/hr, Routine, Start date 09/06/2511:00:00 EST, 6.7 hour(s), Total volume (mL): 1,000, 58 kg, 1.58, m2 cefazolin additive + Sodium Chloride 0.9% intravenous solution 50 mL: 2 gm = 1 EA, Powder-Inj, IV Piggyback, Once, Stop date 09/05/24 12:00:00 EST, Routine, Start date 09/05/24 12:00:00 EST, 100 mL/hr, Infuse over 30 minute(s), HOLD if patient has history of anaphylactic allergic reaction to Penicillin. dimethyl sulfoxide 50 - + sodium bicarbonate 50 mEq + heparin 20,000 unit(s) + triamcinolone 10 mg...: Soln-IRR, Irrigation, Once, Stop date 09/05/24 14:00:00 EST, Start date 09/05/24 14:00:00 EST, 1227 mL/hr, Infuse over 5, minute(s), Total Vol (mL): 102.25 Prescriptions Prescribed amitriptyline 25 mg Tab: 25 mg = 1 tab(s), Oral, Daily, # 90 tab(s), Refills(s) 3, Pharmacy: [facility], 158, cm, 07/27/24 15:15:00 EST, Height/Length Dosing, 56.2, kg, 07/27/24 15:15:00 EST, Weight Dosing tolterodine 2 mg Cap-ER: 2 mg = 1 cap(s), Oral, Daily, # 90 cap(s), Refills(s) 3, Pharmacy: [facility], 158, cm, 07/27/24 15:15:00 EST, Height/Length Dosing, 56.2, kg, 07/27/24 15:15:00 EST, Weight Dosing Documented Medications Documented Non-Formulary Medication: See Instructions metronidazole: 500 mg, Oral, q12hr, Refills(s) 0, Infection or prophylaxis for antibiotics, Home Medications (4) Active amitriptyline 25 mg Tab 25 mg = 1 tab(s), Oral, Daily metronidazole 500 mg, Oral, q12hr Non-Formulary Medication See Instructions tolterodine 2 mg Cap-ER 2 mg = 1 cap(s), Oral, Daily , Medications (3) Active Scheduled: (2) ceFAZolin + Sodium Chloride 0.9% Minibag 50 mL 2 gm 1 EA, IV Piggyback, Once dimethyl sulfoxide 50 - + sodium bicarbonate 8.4% 50 mEq + heparin 20,000 unit(s) + triamcinolone 150 - 50 mL, Irrigation, Once Continuous: (1) Sodium Chloride 0.9% 1,000 mL 1,000 mL, IV, 150 mL/hr PRN: (0) Problem list: All Problems Adverse reaction to COVID-19 vaccine / SNOMED CT 1785183497 / Confirmed Arm skin lesion, right / SNOMED CT 0166889361 / Confirmed Asymptomatic microscopic hematuria / SNOMED CT 9996378688 / Confirmed BMI 22.0-22.9, adult / SNOMED CT 9036980564 / Confirmed BMI 23.0-23.9, adult / SNOMED CT 6547053576 / Confirmed BV (bacterial vaginosis) / SNOMED CT 6732161644 / Confirmed Endometriosis / SNOMED CT 441974252 / Confirmed Gross hematuria / SNOMED CT 942549095 / Confirmed Incomplete bladder emptying / SNOMED CT 316088748 / Confirmed Interstitial cystitis / SNOMED CT 557119482 / Confirmed Musculoskeletal disorder involving upper trapezius muscle / SNOMED CT 309663388 / Confirmed Myofascial muscle pain / SNOMED CT 655950996 / Confirmed Non-smoker / SNOMED CT 65041230 / Confirmed Non-tobacco user / SNOMED CT 201423507 / Confirmed Nonsmoker / SNOMED CT 94741304 / Confirmed OAB (overactive bladder) / SNOMED CT 7034096569 / Confirmed Pelvic floor dysfunction / SNOMED CT 6299702380 / Confirmed Rectal bleeding / SNOMED CT 926570834 / Confirmed Sinusitis / SNOMED CT 82793598 / Confirmed Vaginal yeast infection / SNOMED CT 622180791 / Confirmed Vomiting / SNOMED CT 5658922876 / Confirmed Resolved: Endometriosis / SNOMED CT 2679780048 Resolved: Seizure / SNOMED CT 470737575 Canceled: Acute sinusitis / SNOMED CT 98417251 Canceled: BMI 23.0-23.9, adult / SNOMED CT 6474549126 Canceled: Frequent urination / SNOMED CT 830793364 Canceled: Incomplete bladder emptying / SNOMED CT 613723987 Canceled: Incomplete bladder emptying / SNOMED CT 551865674 Canceled: Mixed incontinence / SNOMED CT 68953139 Canceled: Mixed incontinence urge and stress / SNOMED CT 67197589 Canceled: Nocturia / SNOMED CT 197547686 Canceled: OAB (overactive bladder) / SNOMED CT 5234972930 Canceled: Otitis media with effusion / SNOMED CT 404332652 Canceled: Possible exposure to STD / SNOMED CT 8097809807 Canceled: Sinus infection / SNOMED CT 58874626 Canceled: Stress incontinence / SNOMED CT 943970833 Canceled: Urinary frequency / SNOMED CT 307570337, Active Problems (21) Adverse reaction to C (more content not included)...[facility] Comment on above:Result Comment: Electronically Signed By: Abelino CURTIS, Fausto Fitzgerald.br\Date and Time Signed: 09/05/2512:01 [id number] History of Present illness Narrative* Anastasia Jeong, JÚNIOR - 08/31/2024 9:40 AM EST Reason for Appointment: Patient ID: Sinai Lockwood is a 29 y.o. female who presents for Recurring Vaginal Issues Patient presents today for Consult appointment. MEDICATIONS Current Outpatient Medications Medication Instructions amitriptyline (ELAVIL) 25 mg metroNIDAZOLE (FLAGYL) 500 mg, Oral, 2 times daily tolterodine LA (DETROL LA) 2 mg ALLERGIES Allergies Allergen Reactions Penicillins Anaphylaxis, Hives, Itching, Rash, Shortness of breath and Swelling Other Reaction(s): Hives, Unknown Throat tightened/ rash Latex Itching, Hives and Rash Other Reaction(s): Hives, Unknown Reacted to latex gloves Propolis Itching Surgical glue Wound Dressing Adhesive Itching PROBLEMS Active Ambulatory Problems Diagnosis Date Noted No Active Ambulatory Problems Resolved Ambulatory Problems Diagnosis Date Noted No Resolved Ambulatory Problems Past Medical History: Diagnosis Date Bacterial vaginosis 2022 Endometriosis 12/2019 Ovarian cyst 2012 Polycystic ovary syndrome 2014 Urinary incontinence 12/2019 Urinary tract infection 12/2019 HISTORY PAST MEDICAL HISTORY SOCIAL HISTORY Past Medical History: Diagnosis Date Bacterial vaginosis 2022 Endometriosis 12/2019 Ovarian cyst 2012 Polycystic ovary syndrome 2015 Urinary incontinence 12/2019 Urinary tract infection 12/2019 Social History Tobacco Use Smoking status: Never Smokeless tobacco: Never Substance Use Topics Alcohol use: Yes Alcohol/week: 2.0 standard drinks of alcohol Types: 2 Standard drinks or equivalent per week Drug use: Not Currently Types: Marijuana FAMILY HISTORY No family history on file. SURGICAL HISTORY Past Surgical History: Procedure Laterality Date ABDOMINAL SURGERY 2020 BLADDER SUSPENSION [id number] ENDOMETRIAL ABLATION 2019 HYSTERECTOMY 2020 MR ANGIOGRAM PELVIS W AND WO IV CONTRAST 10/25/2020 MR ANGIOGRAM PELVIS W AND WO IV CONTRAST 10/25/2020 REVIEW OF SYSTEMS Review of Systems: Review of Systems Genitourinary: Negative for vaginal discharge. All other systems reviewed and are negative. OBJECTIVE Objective: Physical Exam Constitutional: Appearance: Normal appearance. She is well-developed. Genitourinary: Vulva normal. Cardiovascular: Rate and Rhythm: Normal rate and regular rhythm. Pulmonary: Effort: Pulmonary effort is normal. Breath sounds: Normal breath sounds. Abdominal: General: Bowel sounds are normal. There is no distension. Palpations: Abdomen is soft. Tenderness: There is no abdominal tenderness. There is no guarding or rebound. Musculoskeletal: General: No swelling. Normal range of motion. Right lower leg: No edema. Left lower leg: No edema. Neurological: Mental Status: She is alert and oriented to person, place, and time. Skin: General: Skin is warm and dry. Psychiatric: Mood and Affect: Mood normal. Behavior: Behavior normal. Vitals and nursing note reviewed. Exam conducted with a java technical manager present. Vitals: Estimated body mass index is 23.51 kg/m as calculated from the following: Height as of 03/08/24: 5' 1 . Weight as of 07/18/24: 124 lb 6.4 oz. BP: No LMP recorded. Patient has had a hysterectomy. ASSESSMENT & PLAN ICD-10-CM 1. Bacterial vaginosis N76.0 metroNIDAZOLE (Flagyl) 500 MG tablet B96.89 Patient presents for recurrent BV and vaginal discharge. Patient will be prescribed Metrogel to be used twice weekly for 6 months. Will also send in Flagyl for 7 day course. Patient would like to defer cultures at this time. Patient to reach out to office with any further questions/concerns. Documented by Anastasia Jeong LPN on behalf of: Miky Delgado DO documented in this encounterCameron [facility] Medical [id number] Hospital Discharge instructions Patient Education 07/27/2024 15:50:25 Interstitial Cystitis Interstitial Cystitis Interstitial cystitis is inflammation of the bladder. This condition is also known as painful bladder syndrome. This may cause pain in the bladder area as well as a frequent and urgent need to urinate. The bladder is an organ that stores urine after the urine is made in the kidneys. The severity of interstitial cystitis can vary from person to person. You may have flare-ups, and then your symptoms may go away for a while. For many people, it becomes a long-term (chronic) problem. What are the causes? The cause of this condition is not known. What increases the risk? The following factors may make you more likely to develop this condition: Being female. Having fibromyalgia. Having irritable bowel syndrome (IBS). Having endometriosis. Having chronic fatigue syndrome. This condition may be aggravated by: Stress. Smoking. Spicy foods. What are the signs or symptoms? Symptoms of interstitial cystitis vary, and they can change management lead time. Symptoms may include: Discomfort or pain in the bladder area, which is in the lower abdomen. Pain can range from mild to severe. The pain may change in intensity as the bladder fills with urine or as it empties. Pain in the pelvic area, between the hip bones. A constant urge to urinate. Frequent urination. Pain during urination. Pain during sex. Blood in the urine. Feeling tired (fatigue). For women, symptoms often get worse during menstruation. How is this diagnosed? This condition is diagnosed based on your symptoms, your medical history, and a physical exam. Yourhealth care provider may need to rule out other conditions and may order other tests, such as: Urine tests. Cystoscopy. For this test, a tool similar to a very thin telescope is used to look into your bladder. Biopsy. This involves taking a sample of tissue from the bladder to be examined under a microscope. How is this treated? There is no cure for this condition, but treatment can help you control your symptoms. Work closelywith your health care provider to find the most effective treatments for you. Treatment options mayinclude: Medicines to relieve pain and reduce how often you feel the need to urinate. This treatment may include: ?A procedure where a small amount of medicine that eases irritation is put inside your bladder through a catheter (bladder instillation). Lifestyle changes, such as changing your diet or taking steps to control stress. Physical therapy. This may include: ?Exercises to help relax the pelvic floor muscles. ?Massage to relax tight muscles (myofascial release). Learning ways to control when you urinate (bladder training). Using a device that provides electrical stimulation to your nerves, which can relieve pain (neuromodulation therapy). The device is placed on your back, where it blocks the nerves that cause you to feel pain in your bladder area. A procedure that stretches your bladder by filling it with air or fluid (hydrodistention). Surgery. This is rare. It is only done for extreme cases, if other treatments do not help. Follow these instructions at home: Lifestyle Learn and practice relaxation techniques, such as deep breathing and muscle relaxation. Get care for your body and mental well-being, such as: ?Cognitive behavioral therapy (CBT). This therapy changes the way you think or act in response to different situations. This may improve how you feel. ?Seeing a mental health therapist to evaluate and treat depression, if necessary. Work with your health care provider on other ways to manage pain. Acupuncture may be helpful. Avoid drinking alcohol. Do not use any products that contain nicotine or tobacco. These products include cigarettes, chewing tobacco, and vaping devices, such as e-cigarettes. If you need help quitting, ask your health careprovider. Eating and drinking Make dietary changes as recommended by your health care provider. You may need to avoid: ?Spicy foods. ?Foods that contain a lot of potassium. Limit your intake of drinks that increase your urge to urinate. These include alcohol and caffeinated drinks like soda, coffee, and tea. Bladder training Use bladder training techniques as directed. Techniques may include: ?Urinating at scheduled times. ?Training yourself to delay urination. Keep a bladder diary. ?Write down the times you urinate and any symptoms that you have. This can help you find out which foods, liquids, or activities make your symptoms worse. ?Use your bladder diary to schedule bathroom trips. If you are away from home, plan to be near a bathroom at each of your scheduled times. Make sure that you urinate just before you leave the house and just before you go to bed. General instructions Take jqbv-rxk-eekckxi and prescription medicines only as told by your health care provider. Try a warm or cool compress over your bladder for comfort. Avoid wearing tight clothing. Do exercises to relax your pelvic floor muscles as told by your physical therapist. Keep all follow-up visits. This is important. Where to find more information To find more information or a support group near you, visit: [facility]: urologyhealth.org Interstitial Cystitis Association: ichelp.org Contact a health care provider if you have: Symptoms that do not get better with treatment. Pain or discomfort that gets worse. More frequent urges to urinate. A fever. Get help right away if: You have no control over when you urinate. Summary Interstitial cystitis is inflammation of the bladder. This condition may cause pain in the bladder area as well as a frequent and urgent need to urinate. You may have flare-ups of the condition, and then it may go away for a while. For many people, it becomes a long-term (chronic) problem. There is no cure for interstitial cystitis, but treatment methods are available to control your symptoms. This information is not intended to replace advice given to you by your health care provider. Make sure you discuss any questions you have with your health care provider. Document Revised: 01/18/2021 Document Reviewed: 01/24/2021 [employer] Patient Education 2023 [employer]. Follow Up Care 05/19/2024 10:37:29 With:Remington CURTIS, ALFONSO Saldana, URO Address: When: Unknown [facility] 01-23-2025 NotePatient Education Urology Interstitial Cystitis Interstitial cystitis is inflammation of the bladder. This condition is also known as painful bladder syndrome. This may cause pain in the bladder area as well as a frequent and urgent need to urinate. The bladder is an organ that stores urine after the urine is made in the kidneys. The severity of interstitial cystitis can vary from person to person. You may have flare-ups, and then your symptoms may go away for a while. For many people, it becomes a long-term (chronic) problem. What are the causes? The cause of this condition is not known. What increases the risk? The following factors may make you more likely to develop this condition: ??? Being female. ??? Having fibromyalgia. ??? Having irritable bowel syndrome (IBS). ??? Having endometriosis. ??? Having chronic fatigue syndrome. This condition may be aggravated by: ??? Stress. ??? Smoking. ??? Spicy foods. What are the signs or symptoms? Symptoms of interstitial cystitis vary, and they can change management lead time. Symptoms may include: ??? Discomfort or pain in the bladder area, which is in the lower abdomen. Pain can range from mildto severe. The pain may change in intensity as the bladder fills with urine or as it empties. ??? Pain in the pelvic area, between the hip bones. ??? A constant urge to urinate. ??? Frequent urination. ??? Pain during urination. ??? Pain during sex. ??? Blood in the urine. ??? Feeling tired (fatigue). For women, symptoms often get worse during menstruation. How is this diagnosed? This condition is diagnosed based on your symptoms, your medical history, and a physical exam. Yourhealth care provider may need to rule out other conditions and may order other tests, such as: ??? Urine tests. ??? Cystoscopy. For this test, a tool similar to a very thin telescope is used to look into your bladder. ??? Biopsy. This involves taking a sample of tissue from the bladder to be examined under a microscope. How is this treated? There is no cure for this condition, but treatment can help you control your symptoms. Work closelywith your health care provider to find the most effective treatments for you. Treatment options mayinclude: ??? Medicines to relieve pain and reduce how often you feel the need to urinate. This treatment mayinclude: ? A procedure where a small amount of medicine that eases irritation is put inside your bladder through a catheter (bladder instillation). ??? Lifestyle changes, such as changing your diet or taking steps to control stress. ??? Physical therapy. This may include: ? Exercises to help relax the pelvic floor muscles. ? Massage to relax tight muscles (myofascial release). ??? Learning ways to control when you urinate (bladder training). ??? Using a device that provides electrical stimulation to your nerves, which can relieve pain (neuromodulation therapy). The device is placed on your back, where it blocks the nerves that cause you to feel pain in your bladder area. ??? A procedure that stretches your bladder by filling it with air or fluid (hydrodistention). ??? Surgery. This is rare. It is only done for extreme cases, if other treatments do not help. Follow these instructions at home: Lifestyle ??? Learn and practice relaxation techniques, such as deep breathing and muscle relaxation. ??? Get care for your body and mental well-being, such as: ? Cognitive behavioral therapy (CBT). This therapy changes the way you think or act in response to different situations. This may improve how you feel. ? Seeing a mental health therapist to evaluate and treat depression, if necessary. ??? Work with your health care provider on other ways to manage pain. Acupuncture may be helpful. ??? Avoid drinking alcohol. ??? Do not use any products that contain nicotine or tobacco. These products include cigarettes, chewing tobacco, and vaping devices, such as e-cigarettes. If you need help quitting, ask your health care provider. Eating and drinking ??? Make dietary changes as recommended by your health care provider. You may need to avoid: ? Spicy foods. ? Foods that contain a lot of potassium. ??? Limit your intake of drinks that increase your urge to urinate. These include alcohol and caffeinated drinks like soda, coffee, and tea. Bladder training ??? Use bladder training techniques as directed. Techniques may include: ? Urinating at scheduled times. ? Training yourself to delay urination. ??? Keep a bladder diary. ? Write down the times you urinate and any symptoms that you have. This can help you find out whichfoods, liquids, or activities make your symptoms worse. ? Use your bladder diary to schedule bathroom trips. If you are away from home, plan to be near a bathroom at each of your scheduled times. ??? Make sure that you urinate just before you leave the house and just (more content not included)...[facility]01-23-2025 Evaluation + Plan note Diagnostic Tests Pending * Urine Cytology ([facility]) 07/27/24 [facility] [id number] History of Present illness Narrative* ELIE Linares - 07/18/2024 10:30 AM EST Reason for Appointment: Patient ID: Sinai Lockwood is a 29 y.o. female who presents for Vaginal Symptoms Patient presents today for Acute Visit. MEDICATIONS No current outpatient medications ALLERGIES Allergies Allergen Reactions Penicillins Anaphylaxis, Hives, Itching, Rash, Shortness of breath and Swelling Other Reaction(s): Hives, Unknown Throat tightened/ rash Latex Itching, Hives and Rash Other Reaction(s): Hives, Unknown Reacted to latex gloves Propolis Itching Surgical glue Wound Dressing Adhesive Itching PROBLEMS Active Ambulatory Problems Diagnosis Date Noted No Active Ambulatory Problems Resolved Ambulatory Problems Diagnosis Date Noted No Resolved Ambulatory Problems Past Medical History: Diagnosis Date Bacterial vaginosis 2022 Endometriosis 12/2019 Ovarian cyst 2012 Polycystic ovary syndrome 2015 Urinary incontinence 12/2019 Urinary tract infection 12/2019 HISTORY PAST MEDICAL HISTORY SOCIAL HISTORY Past Medical History: Diagnosis Date Bacterial vaginosis 2022 Endometriosis 12/2019 Ovarian cyst 2012 Polycystic ovary syndrome 2015 Urinary incontinence 12/2019 Urinary tract infection 12/2019 Social History Tobacco Use Smoking status: Never Smokeless tobacco: Never Substance Use Topics Alcohol use: Yes Alcohol/week: 2.0 standard drinks of alcohol Types: 2 Standard drinks or equivalent per week Drug use: Not Currently Types: Marijuana FAMILY HISTORY No family history on file. SURGICAL HISTORY Past Surgical History: Procedure Laterality Date ABDOMINAL SURGERY 2020 BLADDER SUSPENSION ENDOMETRIAL ABLATION 2019 HYSTERECTOMY 2020 MR ANGIOGRAM PELVIS W AND WO IV CONTRAST 10/25/2020 MR ANGIOGRAM PELVIS W AND WO IV CONTRAST 10/25/2020 REVIEW OF SYSTEMS Review of Systems: Review of Systems Constitutional: Negative. HENT: Negative. Eyes: Negative. Respiratory: Negative. Cardiovascular: Negative. Gastrointestinal: Negative. Genitourinary: Negative. Musculoskeletal: Negative. Skin: Negative. Neurological: Negative. All other systems reviewed and are negative. Hematological: Negative. Endocrine: Negative. Allergic/Immunologic: Negative. OBJECTIVE Objective: Physical Exam Constitutional: Appearance: Normal appearance. She is normal weight. HENT: Head: Normocephalic. Cardiovascular: Rate and Rhythm: Normal rate. Pulses: Normal pulses. Pulmonary: Effort: Pulmonary effort is normal. Breath sounds: Normal breath sounds. Abdominal: Palpations: Abdomen is soft. Musculoskeletal: General: Normal range of motion. Neurological: General: No focal deficit present. Mental Status: She is alert and oriented to person, place, and time. Psychiatric: Mood and Affect: Mood normal. Behavior: Behavior normal. Thought Content: Thought content normal. Judgment: Judgment normal. Vitals and nursing note reviewed. Vitals: Estimated body mass index is 23.51 kg/m as calculated from the following: Height as of 03/08/24: 5' 1 . Weight as of this encounter: 124 lb 6.4 oz. BP: 102/70 No LMP recorded. Patient has had a hysterectomy. ASSESSMENT & PLAN ICD-10-CM 1. Vaginal symptom N94.9 2. Vaginal discharge N89.8 POCT urinalysis dipstick manually resulted SURESWAB(R) ADVANCED VAGINITIS PLUS, TMA CHLAMYDIA TRACHOMATIS (GENITO/STI) Neisseria gonorrhea DNA probe, direct Patient has history of chronic bv and mycoplasma. Patient seen for pap in March and cultures negative at that time. Patient states around deepa thompson she developed drainage. She took a course of flagyl and symptoms have improved. Cultures repeated today. Further treatment discussed if necessary. We will follow up with results as needed Documented by ELIE Linares on behalf of: ELIE Linares documented in this encounterCameron [facility] Medical [id number] Hospital Discharge instructions Patient Education 06/27/2024 10:46:14 Vaginal Yeast Infection, Adult Vaginal Yeast Infection, Adult Vaginal yeast infection is a condition that causes vaginal discharge as well as soreness, swelling,and redness (inflammation) of the vagina. This is a common condition. Some women get this infectionfrequently. What are the causes? This condition is caused by a change in the normal balance of the yeast (Daisy) and normal bacteria that live in the vagina. This change causes an overgrowth of yeast, which causes the inflammation. What increases the risk? The condition is more likely to develop in women who: Take antibiotic medicines. Have diabetes. Take control pills. Are . Douche often. Have a weak body defense system (immune system). Have been taking steroid medicines for a long time. Frequently wear tight clothing. What are the signs or symptoms? Symptoms of this condition include: White, thick, creamy vaginal discharge. Swelling, itching, redness, and irritation of the vagina. The lips of the vagina (labia) may be affected as well. Pain or a burning feeling while urinating. Pain during sex. How is this diagnosed? This condition is diagnosed based on: Your medical history. A physical exam. A pelvic exam. Your health care provider will examine a sample of your vaginal discharge under a microscope. Your health care provider may send this sample for testing to confirm the diagnosis. How is this treated? This condition is treated with medicine. Medicines may be qspw-brm-udkqrts or prescription. You maybe told to use one or more of the following: Medicine that is taken by mouth (orally). Medicine that is applied as a cream (topically). Medicine that is inserted directly into the vagina (suppository). Follow these instructions at home: Take or apply zluv-jkt-joiafuo and prescription medicines only as told by your health care provider. Do not use tampons until your health care provider approves. Do not have sex until your infection has cleared. Sex can prolong or worsen your symptoms of infection. Ask your health care provider when it is safe to resume sexual activity. Keep all follow-up visits. This is important. How is this prevented? Do not wear tight clothes, such as pantyhose or tight pants. Wear breathable cotton underwear. Do not use douches, perfumed soap, creams, or powders. Wipe from front to back after using the toilet. If you have diabetes, keep your blood sugar levels under control. Ask your health care provider for other ways to prevent yeast infections. Contact a health care provider if: You have a fever. Your symptoms go away and then return. Your symptoms do not get better with treatment. Your symptoms get worse. You have new symptoms. You develop blisters in or around your vagina. You have blood coming from your vagina and it is not your menstrual period. You develop pain in your abdomen. Summary Vaginal yeast infection is a condition that causes discharge as well as soreness, swelling, and redness (inflammation) of the vagina. This condition is treated with medicine. Medicines may be wrsc-cwy-abmftmr or prescription. Take or apply lsmi-lze-udehcku and prescription medicines only as told by your health care provider. Do not douche. Resume sexual activity or use of tampons as instructed by your health care provider. Contact a health care provider if your symptoms do not get better with treatment or your symptoms go away and then return. This information is not intended to replace advice given to you by your health care provider. Make sure you discuss any questions you have with your health care provider. Document Revised: 09/08/2021 Document Reviewed: 09/08/2021 [employer] Patient Education 2023 [employer]. 06/27/2024 10:46:11 Dysuria Dysuria Dysuria is pain or discomfort during urination. The pain or discomfort may be felt in the part of the body that drains urine from the bladder (urethra) or in the surrounding tissue of the genitals. The pain may also be felt in the groin area, lower abdomen, or lower back. You may have to urinate frequently or have the sudden feeling that you have to urinate (urgency). Dysuria can affect anyone, but it is more common in females. Dysuria can be caused by many different things, including: Urinary tract infection. Kidney stones or bladder stones. Certain STIs (sexually transmitted infections), such as chlamydia. Dehydration. Inflammation of the tissues of the vagina. Use of certain medicines. Use of certain soaps or scented products that cause irritation. Follow these instructions at home: Medicines Take whfi-ihh-rsejvwg and prescription medicines only as told by your health care provider. If you were prescribed an antibiotic medicine, take it as told by your health care provider. Do notstop taking the antibiotic even if you start to feel better. Eating and drinking Drink enough fluid to keep your urine pale yellow. Avoid caffeinated beverages, tea, and alcohol. These beverages can irritate the bladder and make dysuria worse. In males, alcohol may irritate the prostate. General instructions Watch your condition for any changes. Urinate often. Avoid holding urine for long periods of time. If you are female, you should wipe from front to back after urinating or having a bowel movement. Use each piece of toilet paper only once. Empty your bladder after sex. Keep all follow-up visits. This is important. If you had any tests done to find the cause of dysuria, it is up to you to get your test results. Ask your health care provider, or the department that is doing the test, when your results will be ready. Contact a health care provider if: You have a fever. You develop pain in your back or sides. You have nausea or vomiting. You have blood in your urine. You are not urinating as often as you usually do. Get help right away if: Your pain is severe and not relieved with medicines. You cannot eat or drink without vomiting. You are confused. You have a rapid heartbeat while resting. You have shaking or chills. You feel extremely weak. Summary Dysuria is pain or discomfort while urinating. Many different conditions can lead to dysuria. If you have dysuria, you may have to urinate frequently or have the sudden feeling that you have tourinate (urgency). Watch your condition for any changes. Keep all follow-up visits. Make sure that you urinate often and drink enough fluid to keep your urine pale yellow. This information is not intended to replace advice given to you by your health care provider. Make sure you discuss any questions you have with your health care provider. Document Revised: 01/31/2021 Document Reviewed: 01/31/2021 [employer] Patient Education 2023 [employer]. Follow Up Care 06/27/2024 08:37:16 With:IVET LAWLER FAM Address:Unknown When: Unknown [facility] [phone] NotePatient Education Obstetrics and Gynecology Vaginal Yeast Infection, Adult Vaginal yeast infection is a condition that causes vaginal discharge as well as soreness, swelling,and redness (inflammation) of the vagina. This is a common condition. Some women get this infectionfrequently. What are the causes? This condition is caused by a change in the normal balance of the yeast (Daisy) and normal bacteria that live in the vagina. This change causes an overgrowth of yeast, which causes the inflammation. What increases the risk? The condition is more likely to develop in women who: ??? Take antibiotic medicines. ??? Have diabetes. ??? Take control pills. ??? Are . ??? Douche often. ??? Have a weak body defense system (immune system). ??? Have been taking steroid medicines for a long time. ??? Frequently wear tight clothing. What are the signs or symptoms? Symptoms of this condition include: ??? White, thick, creamy vaginal discharge. ??? Swelling, itching, redness, and irritation of the vagina. The lips of the vagina (labia) may beaffected as well. ??? Pain or a burning feeling while urinating. ??? Pain during sex. How is this diagnosed? This condition is diagnosed based on: ??? Your medical history. ??? A physical exam. ??? A pelvic exam. Your health care provider will examine a sample of your vaginal discharge under a microscope. Your health care provider may send this sample for testing to confirm the diagnosis. How is this treated? This condition is treated with medicine. Medicines may be ymxx-lcz-qochigm or prescription. You maybe told to use one or more of the following: ??? Medicine that is taken by mouth (orally). ??? Medicine that is applied as a cream (topically). ??? Medicine that is inserted directly into the vagina (suppository). Follow these instructions at home: ??? Take or apply ixpq-hrj-wadyyxn and prescription medicines only as told by your health care provider. ??? Do not use tampons until your health care provider approves. ??? Do not have sex until your infection has cleared. Sex can prolong or worsen your symptoms of infection. Ask your health care provider when it is safe to resume sexual activity. ??? Keep all follow-up visits. This is important. How is this prevented? Do not wear tight clothes, such as pantyhose or tight pants. ??? Wear breathable cotton underwear. ??? Do not use douches, perfumed soap, creams, or powders. ??? Wipe from front to back after using the toilet. ??? If you have diabetes, keep your blood sugar levels under control. ??? Ask your health care provider for other ways to prevent yeast infections. Contact a health care provider if: ??? You have a fever. ??? Your symptoms go away and then return. ??? Your symptoms do not get better with treatment. ??? Your symptoms get worse. ??? You have new symptoms. ??? You develop blisters in or around your vagina. ??? You have blood coming from your vagina and it is not your menstrual period. ??? You develop pain in your abdomen. Summary ??? Vaginal yeast infection is a condition that causes discharge as well as soreness, swelling, andredness (inflammation) of the vagina. ??? This condition is treated with medicine. Medicines may be mnik-iei-bjnumtf or prescription. ??? Take or apply ionr-ecd-wjqyyqr and prescription medicines only as told by your health care provider. ??? Do not douche. Resume sexual activity or use of tampons as instructed by your health care provider. ??? Contact a health care provider if your symptoms do not get better with treatment or your symptoms go away and then return. This information is not intended to replace advice given to you by your health care provider. Make sure you discuss any questions you have with your health care provider. Document Revised: 09/08/2021 Document Reviewed: 09/08/2021 [employer] Patient Education ? 2023 [employer]. Urology Dysuria Dysuria is pain or discomfort during urination. The pain or discomfort may be felt in the part of the body that drains urine from the bladder (urethra) or in the surrounding tissue of the genitals. The pain may also be felt in the groin area, lower abdomen, or lower back. You may have to urinate frequently or have the sudden feeling that you have to urinate (urgency). Dysuria can affect anyone, but it is more common in females. Dysuria can be caused by many different things, including: ??? Urinary tract infection. ??? Kidney stones or bladder stones. ??? Certain STIs (sexually transmitted infections), such as chlamydia. ??? Dehydration. ??? Inflammation of the tissues of the vagina. ??? Use of certain medicines. ??? Use of certain soaps or scented products that cause irritation. Follow these instructions at home: Medicines ??? Take wevi-aci-ipfdhhm and prescription medicines only as told by your health ca (more content not included)...[facility]12-04-2024 Note Patient Education Infectious Disease Community-Acquired Pneumonia, Adult Pneumonia is a lung infection that causes inflammation and the buildup of mucus and fluids in the lungs. This may cause coughing and difficulty breathing. Community-acquired pneumonia is pneumonia that develops in people who are not, and have not recently been, in a hospital or other health care facility. Usually, pneumonia develops as a result of an illness that is caused by a virus, such as the commoncold and the flu (influenza). It can also be caused by bacteria or fungi. While the common cold andinfluenza can pass from person to person (are contagious), pneumonia itself is not considered contagious. What are the causes? This condition may be caused by: ??? Viruses. ??? Bacteria. ??? Fungi. What increases the risk? The following factors may make you more likely to develop this condition: ??? Being over age 65 or having certain medical conditions, such as: ? A long-term (chronic) disease, such as: chronic obstructive pulmonary disease (COPD), asthma, heart failure, diabetes, or kidney disease. ? A condition that increases the risk of breathing in (aspirating) mucus and other fluids from yourmouth and nose. ? A weakened body defense system (immune system). ??? Having had your spleen removed (splenectomy). The spleen is the organ that helps fight germs and infections. ??? Not cleaning your teeth and gums well (poor dental hygiene). ??? Using tobacco products. ??? Traveling to places where germs that cause pneumonia are present or being near certain animals or animal habitats that could have germs that cause pneumonia. What are the signs or symptoms? Symptoms of this condition include: ??? A dry cough or a wet (productive) cough. ??? A fever, sweating, or chills. ??? Chest pain, especially when breathing deeply or coughing. ??? Fast breathing, difficulty breathing, or shortness of breath. ??? Tiredness (fatigue) and muscle aches. How is this diagnosed? This condition may be diagnosed based on your medical history or a physical exam. You may also havetests, including: ??? Imaging, such as a chest X-ray or lung ultrasound. ??? Tests of: ? The level of oxygen and other gases in your blood. ? Mucus from your lungs (sputum). ? Fluid around your lungs (pleural fluid). ? Your urine. How is this treated? Treatment for this condition depends on many factors, such as the cause of your pneumonia, your medicines, and other medical conditions that you have. For most adults, pneumonia may be treated at home. In some cases, treatment must happen in a hospital and may include: ??? Medicines that are given by mouth (orally) or through an IV, including: ? Antibiotic medicines, if bacteria caused the pneumonia. ? Medicines that kill viruses (antiviral medicines), if a virus caused the pneumonia. ??? Oxygen therapy. Severe pneumonia, although rare, may require the following treatments: ??? Mechanical ventilation.This procedure uses a machine to help you breathe if you cannot breathe well on your own or maintain a safe level of blood oxygen. ??? Thoracentesis. This procedure removes any buildup of pleural fluid to help with breathing. Follow these instructions at home: Medicines ??? Take cywl-zul-bufmqhp and prescription medicines only as told by your health care provider. ??? Take cough medicine only if you have trouble sleeping. Cough medicine can prevent your body from removing mucus from your lungs. ??? If you were prescribed antibiotics, take them as told by your health care provider. Do not stoptaking the antibiotic even if you start to feel better. Lifestyle ??? Do not drink alcohol. ??? Do not use any products that contain nicotine or tobacco. These products include cigarettes, chewing tobacco, and vaping devices, such as e-cigarettes. If you need help quitting, ask your health care provider. ??? Eat a healthy diet. This includes plenty of vegetables, fruits, whole grains, low-fat dairy products, and lean protein. General instructions ??? Rest a lot and get at least 8 hours of sleep each night. ??? Sleep in a partly upright position at night. Place a few pillows under your head or sleep in a reclining chair. ??? Return to your normal activities as told by your health care provider. Ask your health care provider what activities are safe for you. ??? Drink enough fluid to keep your urine pale yellow. This helps to thin the mucus in your lungs. ??? If your throat is sore, gargle with a mixture of salt and water 3?4 times a day or as needed. To make salt water, completely dissolve ??1 tsp (3?6 g) of salt in 1 cup (237 mL) of warm water. ??? Keep all follow-up visits. How is this prevented? You can lower your risk of developing community-acq (more content not included)...[facility]11-15-2024 NotePatient Education Urology Interstitial Cystitis Interstitial cystitis is inflammation of the bladder. This condition is also known as painful bladder syndrome. This may cause pain in the bladder area as well as a frequent and urgent need to urinate. The bladder is an organ that stores urine after the urine is made in the kidneys. The severity of interstitial cystitis can vary from person to person. You may have flare-ups, and then your symptoms may go away for a while. For many people, it becomes a long-term (chronic) problem. What are the causes? The cause of this condition is not known. What increases the risk? The following factors may make you more likely to develop this condition: ??? Being female. ??? Having fibromyalgia. ??? Having irritable bowel syndrome (IBS). ??? Having endometriosis. ??? Having chronic fatigue syndrome. This condition may be aggravated by: ??? Stress. ??? Smoking. ??? Spicy foods. What are the signs or symptoms? Symptoms of interstitial cystitis vary, and they can change management lead time. Symptoms may include: ??? Discomfort or pain in the bladder area, which is in the lower abdomen. Pain can range from mildto severe. The pain may change in intensity as the bladder fills with urine or as it empties. ??? Pain in the pelvic area, between the hip bones. ??? A constant urge to urinate. ??? Frequent urination. ??? Pain during urination. ??? Pain during sex. ??? Blood in the urine. ??? Feeling tired (fatigue). For women, symptoms often get worse during menstruation. How is this diagnosed? This condition is diagnosed based on your symptoms, your medical history, and a physical exam. Yourhealth care provider may need to rule out other conditions and may order other tests, such as: ??? Urine tests. ??? Cystoscopy. For this test, a tool similar to a very thin telescope is used to look into your bladder. ??? Biopsy. This involves taking a sample of tissue from the bladder to be examined under a microscope. How is this treated? There is no cure for this condition, but treatment can help you control your symptoms. Work closelywith your health care provider to find the most effective treatments for you. Treatment options mayinclude: ??? Medicines to relieve pain and reduce how often you feel the need to urinate. This treatment mayinclude: ? A procedure where a small amount of medicine that eases irritation is put inside your bladder through a catheter (bladder instillation). ??? Lifestyle changes, such as changing your diet or taking steps to control stress. ??? Physical therapy. This may include: ? Exercises to help relax the pelvic floor muscles. ? Massage to relax tight muscles (myofascial release). ??? Learning ways to control when you urinate (bladder training). ??? Using a device that provides electrical stimulation to your nerves, which can relieve pain (neuromodulation therapy). The device is placed on your back, where it blocks the nerves that cause you to feel pain in your bladder area. ??? A procedure that stretches your bladder by filling it with air or fluid (hydrodistention). ??? Surgery. This is rare. It is only done for extreme cases, if other treatments do not help. Follow these instructions at home: Lifestyle ??? Learn and practice relaxation techniques, such as deep breathing and muscle relaxation. ??? Get care for your body and mental well-being, such as: ? Cognitive behavioral therapy (CBT). This therapy changes the way you think or act in response to different situations. This may improve how you feel. ? Seeing a mental health therapist to evaluate and treat depression, if necessary. ??? Work with your health care provider on other ways to manage pain. Acupuncture may be helpful. ??? Avoid drinking alcohol. ??? Do not use any products that contain nicotine or tobacco. These products include cigarettes, chewing tobacco, and vaping devices, such as e-cigarettes. If you need help quitting, ask your health care provider. Eating and drinking ??? Make dietary changes as recommended by your health care provider. You may need to avoid: ? Spicy foods. ? Foods that contain a lot of potassium. ??? Limit your intake of drinks that increase your urge to urinate. These include alcohol and caffeinated drinks like soda, coffee, and tea. Bladder training ??? Use bladder training techniques as directed. Techniques may include: ? Urinating at scheduled times. ? Training yourself to delay urination. ??? Keep a bladder diary. ? Write down the times you urinate and any symptoms that you have. This can help you find out whichfoods, liquids, or activities make your symptoms worse. ? Use your bladder diary to schedule bathroom trips. If you are away from home, plan to be near a bathroom at each of your scheduled times. ??? Make sure that you urinate just before you leave the house and just (more content not included)...[facility]09-25-2024 History of Present illness Narrative* Berna Ashlee, JÚNIOR - 03/29/2024 3:20 PM EDT Reason for Appointment: Patient ID: Sinai Lockwood is a 29 y.o. female who presents for Well Women Visit and STI Screening Patient presents today for Annual Exam. MEDICATIONS No current outpatient medications ALLERGIES Allergies Allergen Reactions Penicillins Anaphylaxis, Hives, Itching, Rash, Shortness of breath and Swelling Other Reaction(s): Hives, Unknown Throat tightened/ rash Latex Itching, Hives and Rash Other Reaction(s): Hives, Unknown Reacted to latex gloves Propolis Itching Surgical glue Wound Dressing Adhesive Itching PROBLEMS Active Ambulatory Problems Diagnosis Date Noted No Active Ambulatory Problems Resolved Ambulatory Problems Diagnosis Date Noted No Resolved Ambulatory Problems Past Medical History: Diagnosis Date Bacterial vaginosis 2022 Endometriosis 12/2019 Ovarian cyst 2012 Polycystic ovary syndrome 2014 Urinary incontinence 12/2019 Urinary tract infection 12/2019 HISTORY PAST MEDICAL HISTORY SOCIAL HISTORY Past Medical History: Diagnosis Date Bacterial vaginosis 2022 Endometriosis 12/2019 Ovarian cyst 2012 Polycystic ovary syndrome 2014 Urinary incontinence 12/2019 Urinary tract infection 12/2019 Social History Tobacco Use Smoking status: Never Smokeless tobacco: Never Substance Use Topics Alcohol use: Yes Alcohol/week: 2.0 standard drinks of alcohol Types: 2 Standard drinks or equivalent per week Drug use: Not Currently Types: Marijuana FAMILY HISTORY No family history on file. SURGICAL HISTORY Past Surgical History: Procedure Laterality Date ABDOMINAL SURGERY 2020 BLADDER SUSPENSION ENDOMETRIAL ABLATION 2019 HYSTERECTOMY 2020 MR ANGIOGRAM PELVIS W AND WO IV CONTRAST 10/25/2020 MR ANGIOGRAM PELVIS W AND WO IV CONTRAST 10/25/2020 REVIEW OF SYSTEMS Review of Systems: Review of Systems Constitutional: Negative. HENT: Negative. Eyes: Negative. Respiratory: Negative. Cardiovascular: Negative. Gastrointestinal: Negative. Genitourinary: Negative. Musculoskeletal: Negative. Skin: Negative. Neurological: Negative. All other systems reviewed and are negative. Hematological: Negative. Endocrine: Negative. Allergic/Immunologic: Negative. OBJECTIVE Objective: Physical Exam Constitutional: Appearance: Normal appearance. She is well-developed. Genitourinary: Vulva normal. Vaginal cuff intact. Cervix is absent. Uterus is absent. Breasts: Breasts are soft. Right: Normal. Left: Normal. Cardiovascular: Rate and Rhythm: Normal rate and regular rhythm. Abdominal: General: Bowel sounds are normal. There is no distension. Palpations: Abdomen is soft. Tenderness: There is no abdominal tenderness. There is no guarding or rebound. Musculoskeletal: General: No swelling. Normal range of motion. Right lower leg: No edema. Left lower leg: No edema. Neurological: Mental Status: She is alert and oriented to person, place, and time. Skin: General: Skin is warm and dry. Psychiatric: Mood and Affect: Mood normal. Behavior: Behavior normal. Vitals and nursing note reviewed. Exam conducted with a java technical manager present. Vitals: Estimated body mass index is 23.05 kg/m as calculated from the following: Height as of 03/08/24: 5' 1 . Weight as of this encounter: 122 lb. BP: 106/68 No LMP recorded. Patient has had a hysterectomy. ASSESSMENT & PLAN ICD-10-CM 1. Well woman exam with routine gynecological exam Z01.419 2. Vaginal discharge N89.8 SURESWAB(R) ADVANCED VAGINITIS PLUS, TMA 3. STD exposure Z20.2 CHLAMYDIA TRACHOMATIS (GENITO/STI) Neisseria gonorrhea DNA probe, direct Annual Exam: Patient presents today for an annual exam. Patient states she is doing well and has no complaints. Pap was obtained without difficulty. Cultures obtained for discharge and treated for bv. Pt has pelvic dysfunction- too tight- pt advised to start yoga and acupuncture. Orders Placed This Encounter Procedures CHLAMYDIA TRACHOMATIS (GENITO/STI) Neisseria gonorrhea DNA probe, direct Follow Up: Patient is to return in one year for annual unless needed otherwise. Documented by Berna Rosado LPN on behalf of: Miky Delgado DO documented in this encounterCameron Regional Medical [phone] NotePatient Education COVID-19 COVID-19 is an infection caused by a virus called SARS-CoV-2. This type of virus is called a coronavirus. People with COVID-19 may: ? Have little to no symptoms. ? Have mild to moderate symptoms that affect their lungs and breathing. ? Get very sick. What are the causes? COVID-19 is caused by a virus. This virus may be in the air as droplets or on surfaces. It can spread from an infected person when they cough, sneeze, speak, sing, or breathe. You may become infectedif: ? You breathe in the infected droplets in the air. ? You touch an object that has the virus on it. What increases the risk? You are at risk of getting COVID-19 if you have been around someone with the infection. You may be more likely to get very sick if: ? You are 65 years old or older. ? You have certain medical conditions, such as: ? Heart disease. ? Diabetes. ? Chronic respiratory disease. ? Cancer. ? . ? You are immunocompromised. This means your body cannot fight infections easily. ? You have a disability or trouble moving, meaning you're immobile. What are the signs or symptoms? People may have different symptoms from COVID-19. The symptoms can also be mild to severe. They often show up in 5?6 days after being infected. But they can take up to 14 days to appear. Common symptoms are: ? Cough. ? Feeling tired. ? New loss of taste or smell. ? Fever. Less common symptoms are: ? Sore throat. ? Headache. ? Body or muscle aches. ? Diarrhea. ? A skin rash or odd-colored fingers or toes. ? Red or irritated eyes. Sometimes, COVID-19 does not cause symptoms. How is this diagnosed? COVID-19 can be diagnosed with tests done in the lab or at home. Fluid from your nose, mouth, or lungs will be used to check for the virus. How is this treated? Treatment for COVID-19 depends on how sick you are. ? Mild symptoms can be treated at home with rest, fluids, and zaea-lde-mcsiiwe medicines. ? Severe symptoms may be treated in a hospital intensive care unit (ICU). If you have symptoms and are at risk of getting very sick, you may be given a medicine that fights viruses. This medicine is called an antiviral. How is this prevented? To protect yourself from COVID-19: 1. Know your risk factors. 2. Get vaccinated. 3. If your body cannot fight infections easily, talk to your provider about treatment to help prevent COVID-19. 4. Stay at least 1 meter away from others. 5. Wear a well-fitted mask when: ? You can't stay at a distance from people. ? You're in a place with poor air flow. 6. Try to be in open spaces with good air flow when in public. 7. Wash your hands often or use an alcohol-based hand credit collections specialist. 8. Cover your nose and mouth when coughing and sneezing. If you think you have COVID-19 or have been around someone who has it, stay home and be by yourselffor 5?10 days. Where to find more information ? Centers for Disease Control and Prevention (CDC): cdc.gov ? World Health Organization (WHO): who.int Get help right away if: ? You have trouble breathing or get short of breath. ? You have pain or pressure in your chest. ? You cannot speak or move any part of your body. ? You are confused. ? Your symptoms get worse. These symptoms may be an emergency. Get help right away. Call 911. ? Do not wait to see if the symptoms will go away. ? Do not drive yourself to the hospital. This information is not intended to replace advice given to you by your health care provider. Make sure you discuss any questions you have with your health care provider. Document Revised: 06/29/2023 Document Reviewed: 03/05/2023 [employer] Patient Education ? 2023 [employer]. Infectious Disease COVID-19 COVID-19 is an infection caused by a virus called SARS-CoV-2. This type of virus is called a coronavirus. People with COVID-19 may: ? Have little to no symptoms. ? Have mild to moderate symptoms that affect their lungs and breathing. ? Get very sick. What are the causes? COVID-19 is caused by a virus. This virus may be in the air as droplets or on surfaces. It can spread from an infected person when they cough, sneeze, speak, sing, or breathe. You may become infectedif: ? You breathe in the infected droplets in the air. ? You touch an object that has the virus on it. What increases the risk? You are at risk of getting COVID-19 if you have been around someone with the infection. You may be more likely to get very sick if: ? You are 65 years old or older. ? You have certain medical conditions, such as: ? Heart disease. ? Diabetes. ? Chronic respiratory disease. ? Cancer. ? . ? You are immunocompromised. This means your body cannot fight infections easily. ? You have a disability or trouble moving, meaning you're immobile. What are the signs or symptoms? People may have different symptoms from COV (more content not included)...[facility]09-13-2024 Hospital Discharge instructions Patient Education 03/17/2024 17:32:29 COVID-19 COVID-19 COVID-19 is an infection caused by a virus called SARS-CoV-2. This type of virus is called a coronavirus. People with COVID-19 may: Have little to no symptoms. Have mild to moderate symptoms that affect their lungs and breathing. Get very sick. What are the causes? COVID-19 is caused by a virus. This virus may be in the air as droplets or on surfaces. It can spread from an infected person when they cough, sneeze, speak, sing, or breathe. You may become infectedif: You breathe in the infected droplets in the air. You touch an object that has the virus on it. What increases the risk? You are at risk of getting COVID-19 if you have been around someone with the infection. You may be more likely to get very sick if: You are 65 years old or older. You have certain medical conditions, such as: ?Heart disease. ?Diabetes. ?Chronic respiratory disease. ?Cancer. ?. You are immunocompromised. This means your body cannot fight infections easily. You have a disability or trouble moving, meaning you're immobile. What are the signs or symptoms? People may have different symptoms from COVID-19. The symptoms can also be mild to severe. They often show up in 5 6 days after being infected. But they can take up to 14 days to appear. Common symptoms are: Cough. Feeling tired. New loss of taste or smell. Fever. Less common symptoms are: Sore throat. Headache. Body or muscle aches. Diarrhea. A skin rash or odd-colored fingers or toes. Red or irritated eyes. Sometimes, COVID-19 does not cause symptoms. How is this diagnosed? COVID-19 can be diagnosed with tests done in the lab or at home. Fluid from your nose, mouth, or lungs will be used to check for the virus. How is this treated? Treatment for COVID-19 depends on how sick you are. Mild symptoms can be treated at home with rest, fluids, and yspj-llg-dcvjqwz medicines. Severe symptoms may be treated in a hospital intensive care unit (ICU). If you have symptoms and are at risk of getting very sick, you may be given a medicine that fights viruses. This medicine is called an antiviral. How is this prevented? To protect yourself from COVID-19: 1.Know your risk factors. 2.Get vaccinated. 3.If your body cannot fight infections easily, talk to your provider about treatment to help prevent COVID-19. 4.Stay at least 1 meter away from others. 5.Wear a well-fitted mask when: You can't stay at a distance from people. You're in a place with poor air flow. 6.Try to be in open spaces with good air flow when in public. 7.Wash your hands often or use an alcohol-based hand credit collections specialist. 8.Cover your nose and mouth when coughing and sneezing. If you think you have COVID-19 or have been around someone who has it, stay home and be by yourselffor 5 10 days. Where to find more information Centers for Disease Control and Prevention (CDC): cdc.gov World Health Organization (WHO): who.int Get help right away if: You have trouble breathing or get short of breath. You have pain or pressure in your chest. You cannot speak or move any part of your body. You are confused. Your symptoms get worse. These symptoms may be an emergency. Get help right away. Call 911. Do not wait to see if the symptoms will go away. Do not drive yourself to the hospital. This information is not intended to replace advice given to you by your health care provider. Make sure you discuss any questions you have with your health care provider. Document Revised: 06/29/2023 Document Reviewed: 03/05/2023 [employer] Patient Education 2023 [employer]. Follow Up Care 03/17/2024 17:11:49 With:IVET LAWLER [facility] Address:Unknown When: Unknown [facility] 09-04-2024 History of Present illness Narrative* Berna Rosado LPN - 03/08/2024 2:50 PM EDT Reason for Appointment: Patient ID: Sinai Tnaner is a 29 y.o. female who presents for Vaginal Discharge Patient presents today for Acute Visit. MEDICATIONS Current Outpatient Medications Medication Instructions azithromycin (Zithromax) 500 MG tablet Day 1: Take 2 tablets PO onetime dose; Day 2,3,4: Take 1 tablet daily doxycycline (VIBRAMYCIN) 100 mg, Oral, 2 times daily, Take with at least 8 ounces (large glass) of water, do not lie down for 30 minutes after moxifloxacin (AVELOX) 400 mg, Oral, Daily, start medication AFTER completing course of Doxycycline & Azithromycin. ALLERGIES Allergies Allergen Reactions Penicillins Anaphylaxis Latex Itching Wound Dressing Adhesive Itching PROBLEMS Active Ambulatory Problems Diagnosis Date Noted No Active Ambulatory Problems Resolved Ambulatory Problems Diagnosis Date Noted No Resolved Ambulatory Problems Past Medical History: Diagnosis Date Bacterial vaginosis 2022 Endometriosis 12/2019 Ovarian cyst 2011 Polycystic ovary syndrome 2014 Urinary incontinence 12/2019 Urinary tract infection 12/2019 HISTORY PAST MEDICAL HISTORY SOCIAL HISTORY Past Medical History: Diagnosis Date Bacterial vaginosis 2022 Endometriosis 12/2019 Ovarian cyst 2012 Polycystic ovary syndrome 2014 Urinary incontinence 12/2019 Urinary tract infection 12/2019 Social History Tobacco Use Smoking status: Never Smokeless tobacco: Never Substance Use Topics Alcohol use: Yes Alcohol/week: 2.0 standard drinks of alcohol Types: 2 Standard drinks or equivalent per week Drug use: Not Currently Types: Marijuana FAMILY HISTORY No family history on file. SURGICAL HISTORY Past Surgical History: Procedure Laterality Date ABDOMINAL SURGERY 2020 BLADDER SUSPENSION ENDOMETRIAL ABLATION 2019 HYSTERECTOMY 2020 MR ANGIOGRAM PELVIS W AND WO IV CONTRAST 10/25/2020 MR ANGIOGRAM PELVIS W AND WO IV CONTRAST 10/25/2020 REVIEW OF SYSTEMS Review of Systems: Review of Systems Constitutional: Negative. HENT: Negative. Eyes: Negative. Respiratory: Negative. Cardiovascular: Negative. Gastrointestinal: Negative. Genitourinary: Positive for vaginal discharge. Musculoskeletal: Negative. Skin: Negative. Neurological: Negative. All other systems reviewed and are negative. Hematological: Negative. Endocrine: Negative. Allergic/Immunologic: Negative. OBJECTIVE Objective: Physical Exam Constitutional: Appearance: Normal appearance. She is well-developed. Cardiovascular: Rate and Rhythm: Normal rate and regular rhythm. Pulmonary: Effort: Pulmonary effort is normal. Breath sounds: Normal breath sounds. Abdominal: General: Bowel sounds are normal. There is no distension. Palpations: Abdomen is soft. Tenderness: There is no abdominal tenderness. There is no guarding or rebound. Musculoskeletal: General: No swelling. Normal range of motion. Right lower leg: No edema. Left lower leg: No edema. Neurological: Mental Status: She is alert and oriented to person, place, and time. Skin: General: Skin is warm and dry. Psychiatric: Mood and Affect: Mood normal. Behavior: Behavior normal. Vitals and nursing note reviewed. Exam conducted with a java technical manager present. Vitals: Estimated body mass index is 23.05 kg/m as calculated from the following: Height as of this encounter: 5' 1 . Weight as of this encounter: 122 lb. BP: 110/72 No LMP recorded. Patient has had a hysterectomy. ASSESSMENT & PLAN ICD-10-CM 1. Vaginal discharge N89.8 doxycycline (Vibramycin) 100 MG capsule azithromycin (Zithromax) 500 MG tablet 2. Bacterial infection due to mycoplasma A49.3 doxycycline (Vibramycin) 100 MG capsule azithromycin (Zithromax) 500 MG tablet moxifloxacin (Avelox) 400 MG tablet Pt presents with complaints of vaginal discharge. Pt had gonorrhea in May. Pt having pain and discomfort along with discharge. Pt called in for mycoplasma faxed to pharmacy. Pt to return for annual Documented by Berna Rosado LPN on behalf of: Miky Delgado DO documented in this encounterC[facility] [id number] Hospital Discharge instructions Patient Education 11/08/2023 12:00:13 Bacterial Vaginosis Bacterial Vaginosis Bacterial vaginosis is an infection that occurs when the normal balance of bacteria in the vagina changes. This change is caused by an overgrowth of certain bacteria in the vagina. Bacterial vaginosis is the most common vaginal infection among females aged 15 to 44 years. This condition increases the risk of sexually transmitted infections (STIs). Treatment can help reduce this risk. Treatment is very important for women because this condition can cause babies to be born early (prematurely) or at a low weight. What are the causes? This condition is caused by an increase in harmful bacteria that are normally present in small amounts in the vagina. However, the exact reason this condition develops is not known. You cannot get bacterial vaginosis from toilet seats, bedding, swimming pools, or contact with objects around you. What increases the risk? The following factors may make you more likely to develop this condition: Having a new sexual partner or multiple sexual partners, or having unprotected sex. Douching. Having an intrauterine device (IUD). Smoking. Abusing drugs and alcohol. This may lead to riskier sexual behavior. Taking certain antibiotic medicines. Being . What are the signs or symptoms? Some women with this condition have no symptoms. Symptoms may include: [place] or white vaginal discharge. The discharge can be watery or foamy. A fish-like odor with discharge, especially after sex or during menstruation. Itching in and around the vagina. Burning or pain with urination. How is this diagnosed? This condition is diagnosed based on: Your medical history. A physical exam of the vagina. Checking a sample of vaginal fluid for harmful bacteria or abnormal cells. How is this treated? This condition is treated with antibiotic medicines. These may be given as a pill, a vaginal cream,or a medicine that is put into the vagina (suppository). If the condition comes back after treatment, a second round of antibiotics may be needed. Follow these instructions at home: Medicines Take or apply jjqe-waj-bflwvxu and prescription medicines only as told by your health care provider. Take or apply your antibiotic medicine as told by your health care provider. Do not stop using the antibiotic even if you start to feel better. General instructions If you have a female sexual partner, tell her that you have a vaginal infection. She should follow up with her health care provider. If you have a male sexual partner, he does not need treatment. Avoid sexual activity until you finish treatment. Drink enough fluid to keep your urine pale yellow. Keep the area around your vagina and rectum clean. ?Wash the area daily with warm water. ?Wipe yourself from front to back after using the toilet. If you are , talk to your health care provider about continuing during treatment. Keep all follow-up visits. This is important. How is this prevented? Self-care Do not douche. Wash the outside of your vagina with warm water only. Wear cotton or cotton-lined underwear. Avoid wearing tight pants and pantyhose, especially during the summer. Safe sex Use protection when having sex. This includes: ?Using condoms. ?Using dental dams. This is a thin layer of a material made of latex or polyurethane that protects the mouth during oral sex. Limit the number of sexual partners. To help prevent bacterial vaginosis, it is best to have sex with just one partner (monogamous relationship). Make sure you and your sexual partner are tested for STIs. Drugs and alcohol Do not use any products that contain nicotine or tobacco. These products include cigarettes, chewing tobacco, and vaping devices, such as e-cigarettes. If you need help quitting, ask your health careprovider. Do not use drugs. Do not drink alcohol if: ?Your health care provider tells you not to do this. ?You are , may be , or are planning to become . If you drink alcohol: ? Limit how much you have to 0 1 drink a day. ?Be aware of how much alcohol is in your drink. In the [place] one drink equals one 12 oz bottle of beer (355 mL), one 5 oz glass of wine (148 mL), or one 1 oz glass of hard liquor (44 mL). Where to find more information Centers for Disease Control and Prevention: www.cdc.gov [place] [employer] (BIJAN): www.ashastd.org [place].S. Department of Health and Human Services, Office on Women's Health: www.womenshealth.gov Contact a health care provider if: Your symptoms do not improve, even after treatment. You have more discharge or pain when urinating. You have a fever or chills. You have pain in your abdomen or pelvis. You have pain during sex. You have vaginal bleeding between menstrual periods. Summary Bacterial vaginosis is a vaginal infection that occurs when the normal balance of bacteria in the vagina changes. It results from an overgrowth of certain bacteria. This condition increases the risk of sexually transmitted infections (STIs). Getting treated can help reduce this risk. Treatment is very important for women because this condition can cause babies to be born early (prematurely) or at low weight. This condition is treated with antibiotic medicines. These may be given as a pill, a vaginal cream,or a medicine that is put into the vagina (suppository). This information is not intended to replace advice given to you by your health care provider. Make sure you discuss any questions you have with your health care provider. Document Revised: 12/19/2020 Document Reviewed: 12/19/2020 [employer] Patient Education 2022 [employer]. [facility] 05-06-2024 Evaluation + Plan note Diagnostic Tests Pending * Chlamydia/Gonococcus, MAVERICK 11/08/23 * NuSwab Vaginitis Plus (VG+) 11/08/23 [facility]05-02-2024 Hospital Discharge instructions Patient Education 11/04/2023 14:58:13 Vaginal Yeast Infection, Adult Vaginal Yeast Infection, Adult Vaginal yeast infection is a condition that causes vaginal discharge as well as soreness, swelling,and redness (inflammation) of the vagina. This is a common condition. Some women get this infectionfrequently. What are the causes? This condition is caused by a change in the normal balance of the yeast (Daisy) and normal bacteria that live in the vagina. This change causes an overgrowth of yeast, which causes the inflammation. What increases the risk? The condition is more likely to develop in women who: Take antibiotic medicines. Have diabetes. Take control pills. Are . Douche often. Have a weak body defense system (immune system). Have been taking steroid medicines for a long time. Frequently wear tight clothing. What are the signs or symptoms? Symptoms of this condition include: White, thick, creamy vaginal discharge. Swelling, itching, redness, and irritation of the vagina. The lips of the vagina (labia) may be affected as well. Pain or a burning feeling while urinating. Pain during sex. How is this diagnosed? This condition is diagnosed based on: Your medical history. A physical exam. A pelvic exam. Your health care provider will examine a sample of your vaginal discharge under a microscope. Your health care provider may send this sample for testing to confirm the diagnosis. How is this treated? This condition is treated with medicine. Medicines may be ecso-eie-ujyeexc or prescription. You maybe told to use one or more of the following: Medicine that is taken by mouth (orally). Medicine that is applied as a cream (topically). Medicine that is inserted directly into the vagina (suppository). Follow these instructions at home: Take or apply jlfz-oou-ahikysh and prescription medicines only as told by your health care provider. Do not use tampons until your health care provider approves. Do not have sex until your infection has cleared. Sex can prolong or worsen your symptoms of infection. Ask your health care provider when it is safe to resume sexual activity. Keep all follow-up visits. This is important. How is this prevented? Do not wear tight clothes, such as pantyhose or tight pants. Wear breathable cotton underwear. Do not use douches, perfumed soap, creams, or powders. Wipe from front to back after using the toilet. If you have diabetes, keep your blood sugar levels under control. Ask your health care provider for other ways to prevent yeast infections. Contact a health care provider if: You have a fever. Your symptoms go away and then return. Your symptoms do not get better with treatment. Your symptoms get worse. You have new symptoms. You develop blisters in or around your vagina. You have blood coming from your vagina and it is not your menstrual period. You develop pain in your abdomen. Summary Vaginal yeast infection is a condition that causes discharge as well as soreness, swelling, and redness (inflammation) of the vagina. This condition is treated with medicine. Medicines may be cviy-ldd-tgaqgcq or prescription. Take or apply knen-eck-agyylym and prescription medicines only as told by your health care provider. Do not douche. Resume sexual activity or use of tampons as instructed by your health care provider. Contact a health care provider if your symptoms do not get better with treatment or your symptoms go away and then return. This information is not intended to replace advice given to you by your health care provider. Make sure you discuss any questions you have with your health care provider. Document Revised: 09/08/2021 Document Reviewed: 09/08/2021 [employer] Patient Education 2022 [employer] [facility] 03-01-2024 Evaluation + Plan note Future Scheduled Tests Radiology* CT Abdomen/Pelvis w/ Contrast 09/03/23 [facility] 02-19-2024 Hospital Discharge instructions Patient Education 08/23/2023 16:51:51 Sinus Infection, Adult Sinus Infection, Adult A sinus infection, also called sinusitis, is inflammation of your sinuses. Sinuses are hollow spaces in the bones around your face. Your sinuses are located: Around your eyes. In the middle of your forehead. Behind your nose. In your cheekbones. Mucus normally drains out of your sinuses. When your nasal tissues become inflamed or swollen, mucus can become trapped or blocked. This allows bacteria, viruses, and fungi to grow, which leads to infection. Most infections of the sinuses are caused by a virus. A sinus infection can develop quickly. It can last for up to 4 weeks (acute) or for more than 12 weeks (chronic). A sinus infection often develops after a cold. What are the causes? This condition is caused by anything that creates swelling in the sinuses or stops mucus from draining. This includes: Allergies. Asthma. Infection from bacteria or viruses. Deformities or blockages in your nose or sinuses. Abnormal growths in the nose (nasal polyps). Pollutants, such as chemicals or irritants in the air. Infection from fungi. This is rare. What increases the risk? You are more likely to develop this condition if you: Have a weak body defense system (immune system). Do a lot of swimming or diving. Overuse nasal sprays. Smoke. What are the signs or symptoms? The main symptoms of this condition are pain and a feeling of pressure around the affected sinuses.Other symptoms include: Stuffy nose or congestion that makes it difficult to breathe through your nose. Thick yellow or greenish drainage from your nose. Tenderness, swelling, and warmth over the affected sinuses. A cough that may get worse at night. Decreased sense of smell and taste. Extra mucus that collects in the throat or the back of the nose (postnasal drip) causing a sore throat or bad breath. Tiredness (fatigue). Fever. How is this diagnosed? This condition is diagnosed based on: Your symptoms. Your medical history. A physical exam. Tests to find out if your condition is acute or chronic. This may include: ?Checking your nose for nasal polyps. ?Viewing your sinuses using a device that has a light (endoscope). ?Testing for allergies or bacteria. ?Imaging tests, such as an MRI or CT scan. In rare cases, a bone biopsy may be done to rule out more serious types of fungal sinus disease. How is this treated? Treatment for a sinus infection depends on the cause and whether your condition is chronic or acute. If caused by a virus, your symptoms should go away on their own within 10 days. You may be given medicines to relieve symptoms. They include: ?Medicines that shrink swollen nasal passages (decongestants). ?A spray that eases inflammation of the nostrils (topical intranasal corticosteroids). ?Rinses that help get rid of thick mucus in your nose (nasal saline washes). ?Medicines that treat allergies (antihistamines). ?Vctd-uor-zconzbv pain relievers. If caused by bacteria, your health care provider may recommend waiting to see if your symptoms improve. Most bacterial infections will get better without antibiotic medicine. You may be given antibiotics if you have: ?A severe infection. ?A weak immune system. If caused by narrow nasal passages or nasal polyps, surgery may be needed. Follow these instructions at home: Medicines Take, use, or apply rrer-tfx-llbvsni and prescription medicines only as told by your health care provider. These may include nasal sprays. If you were prescribed an antibiotic medicine, take it as told by your health care provider. Do notstop taking the antibiotic even if you start to feel better. Hydrate and humidify Drink enough fluid to keep your urine pale yellow. Staying hydrated will help to thin your mucus. Use a cool mist humidifier to keep the humidity level in your home above 50%. Inhale steam for 10 15 minutes, 3 4 times a day, or as told by your health care provider. You can do this in the bathroom while a hot shower is running. Limit your exposure to cool or dry air. Rest Rest as much as possible. Sleep with your head raised (elevated). Make sure you get enough sleep each night. General instructions Apply a warm, moist washcloth to your face 3 4 times a day or as told by your health care provider.This will help with discomfort. Use nasal saline washes as often as told by your health care provider. Wash your hands often with soap and water to reduce your exposure to germs. If soap and water are not available, use hand credit collections specialist. Do not smoke. Avoid being around people who are smoking (secondhand smoke). Keep all follow-up visits. This is important. Contact a health care provider if: You have a fever. Your symptoms get worse. Your symptoms do not improve within 10 days. Get help right away if: You have a severe headache. You have persistent vomiting. You have severe pain or swelling around your face or eyes. You have vision problems. You develop confusion. Your neck is stiff. You have trouble breathing. These symptoms may be an emergency. Get help right away. Call 911. Do not wait to see if the symptoms will go away. Do not drive yourself to the hospital. Summary A sinus infection is soreness and inflammation of your sinuses. Sinuses are hollow spaces in the bones around your face. This condition is caused by nasal tissues that become inflamed or swollen. The swelling traps or blocks the flow of mucus. This allows bacteria, viruses, and fungi to grow, which leads to infection. If you were prescribed an antibiotic medicine, take it as told by your health care provider. Do notstop taking the antibiotic even if you start to feel better. Keep all follow-up visits. This is important. This information is not intended to replace advice given to you by your health care provider. Make sure you discuss any questions you have with your health care provider. Document Revised: 05/26/2022 Document Reviewed: 05/26/2022 [employer] Patient Education 2022 [employer]. [facility] 02-08-2024 Hospital Discharge instructions Patient Education 08/12/2023 17:46:32 Sinus Infection, Adult Sinus Infection, Adult A sinus infection, also called sinusitis, is inflammation of your sinuses. Sinuses are hollow spaces in the bones around your face. Your sinuses are located: Around your eyes. In the middle of your forehead. Behind your nose. In your cheekbones. Mucus normally drains out of your sinuses. When your nasal tissues become inflamed or swollen, mucus can become trapped or blocked. This allows bacteria, viruses, and fungi to grow, which leads to infection. Most infections of the sinuses are caused by a virus. A sinus infection can develop quickly. It can last for up to 4 weeks (acute) or for more than 12 weeks (chronic). A sinus infection often develops after a cold. What are the causes? This condition is caused by anything that creates swelling in the sinuses or stops mucus from draining. This includes: Allergies. Asthma. Infection from bacteria or viruses. Deformities or blockages in your nose or sinuses. Abnormal growths in the nose (nasal polyps). Pollutants, such as chemicals or irritants in the air. Infection from fungi. This is rare. What increases the risk? You are more likely to develop this condition if you: Have a weak body defense system (immune system). Do a lot of swimming or diving. Overuse nasal sprays. Smoke. What are the signs or symptoms? The main symptoms of this condition are pain and a feeling of pressure around the affected sinuses.Other symptoms include: Stuffy nose or congestion that makes it difficult to breathe through your nose. Thick yellow or greenish drainage from your nose. Tenderness, swelling, and warmth over the affected sinuses. A cough that may get worse at night. Decreased sense of smell and taste. Extra mucus that collects in the throat or the back of the nose (postnasal drip) causing a sore throat or bad breath. Tiredness (fatigue). Fever. How is this diagnosed? This condition is diagnosed based on: Your symptoms. Your medical history. A physical exam. Tests to find out if your condition is acute or chronic. This may include: ?Checking your nose for nasal polyps. ?Viewing your sinuses using a device that has a light (endoscope). ?Testing for allergies or bacteria. ?Imaging tests, such as an MRI or CT scan. In rare cases, a bone biopsy may be done to rule out more serious types of fungal sinus disease. How is this treated? Treatment for a sinus infection depends on the cause and whether your condition is chronic or acute. If caused by a virus, your symptoms should go away on their own within 10 days. You may be given medicines to relieve symptoms. They include: ?Medicines that shrink swollen nasal passages (decongestants). ?A spray that eases inflammation of the nostrils (topical intranasal corticosteroids). ?Rinses that help get rid of thick mucus in your nose (nasal saline washes). ?Medicines that treat allergies (antihistamines). ?Ukje-xqd-czlctpv pain relievers. If caused by bacteria, your health care provider may recommend waiting to see if your symptoms improve. Most bacterial infections will get better without antibiotic medicine. You may be given antibiotics if you have: ?A severe infection. ?A weak immune system. If caused by narrow nasal passages or nasal polyps, surgery may be needed. Follow these instructions at home: Medicines Take, use, or apply odic-ylt-qykmbga and prescription medicines only as told by your health care provider. These may include nasal sprays. If you were prescribed an antibiotic medicine, take it as told by your health care provider. Do notstop taking the antibiotic even if you start to feel better. Hydrate and humidify Drink enough fluid to keep your urine pale yellow. Staying hydrated will help to thin your mucus. Use a cool mist humidifier to keep the humidity level in your home above 50%. Inhale steam for 10 15 minutes, 3 4 times a day, or as told by your health care provider. You can do this in the bathroom while a hot shower is running. Limit your exposure to cool or dry air. Rest Rest as much as possible. Sleep with your head raised (elevated). Make sure you get enough sleep each night. General instructions Apply a warm, moist washcloth to your face 3 4 times a day or as told by your health care provider.This will help with discomfort. Use nasal saline washes as often as told by your health care provider. Wash your hands often with soap and water to reduce your exposure to germs. If soap and water are not available, use hand credit collections specialist. Do not smoke. Avoid being around people who are smoking (secondhand smoke). Keep all follow-up visits. This is important. Contact a health care provider if: You have a fever. Your symptoms get worse. Your symptoms do not improve within 10 days. Get help right away if: You have a severe headache. You have persistent vomiting. You have severe pain or swelling around your face or eyes. You have vision problems. You develop confusion. Your neck is stiff. You have trouble breathing. These symptoms may be an emergency. Get help right away. Call 911. Do not wait to see if the symptoms will go away. Do not drive yourself to the hospital. Summary A sinus infection is soreness and inflammation of your sinuses. Sinuses are hollow spaces in the bones around your face. This condition is caused by nasal tissues that become inflamed or swollen. The swelling traps or blocks the flow of mucus. This allows bacteria, viruses, and fungi to grow, which leads to infection. If you were prescribed an antibiotic medicine, take it as told by your health care provider. Do notstop taking the antibiotic even if you start to feel better. Keep all follow-up visits. This is important. This information is not intended to replace advice given to you by your health care provider. Make sure you discuss any questions you have with your health care provider. Document Revised: 05/26/2022 Document Reviewed: 05/26/2022 [employer] Patient Education 2022 [employer]. Follow Up Care 08/12/2023 16:54:31 With:PORTIA GOLDEN CNP Address: [address] [place] [address] When: Unknown [facility] 07-01-2023 Hospital Discharge instructions Patient Education 01/02/2023 14:58:09 RICE Therapy for Routine Care of Injuries, Xics-pd-Fagz RICE Therapy for Routine Care of Injuries Many injuries can be cared for with rest, ice, compression, and elevation (RICE therapy). This includes: Resting the injured body part. Putting ice on the injury. Putting pressure (compression) on the injury. Raising the injured part (elevation). Using RICE therapy can help to lessen pain and swelling. Supplies needed: Ice. Plastic bag. Towel. Elastic bandage. Pillow or pillows to raise your injured body part. How to care for your injury with RICE therapy Rest Try to rest the injured part of your body. You can go back to your normal activities when your doctor says it is okay to do them and when you can do them without pain. If you rest the injury too much, it may not heal as well. Some injuries heal better with early movement instead of resting for too long. Ask your doctor if you should do exercises to help your injuryget better. Ice If told, put ice on the injured area. To do this: ?Put ice in a plastic bag. ?Place a towel between your skin and the bag. ?Leave the ice on for 20 minutes, 2 3 times a day. ?Take off the ice if your skin turns bright red. This is very important. If you cannot feel pain, heat, or cold, you have a greater risk of damage to the area. Do not put ice on your bare skin. Use ice for as many days as your doctor tells you to use it. Compression Put pressure on the injured area. This can be done with an elastic bandage. If this type of bandagehas been put on your injury: Follow instructions on the package the bandage came in about how to use it. Do not wrap the bandage too tightly. ?Wrap the bandage more loosely if part of your body beyond the bandage is blue, swollen, cold, painful, or loses feeling. Take off the bandage and put it on again every 3 4 hours or as told by your doctor. See your doctor if the bandage seems to make your problems worse. Elevation Raise the injured area above the level of your heart while you are sitting or lying down. Follow these instructions at home: If your symptoms get worse or last a long time, make a follow-up appointment with your doctor. You may need to have imaging tests, such as X-rays or an MRI. If you have imaging tests, ask how to get your results when they are ready. Return to your normal activities when your doctor says that it is safe. Keep all follow-up visits. Contact a doctor if: You keep having pain and swelling. Your symptoms get worse. Get help right away if: You have sudden, very bad pain at your injury or lower than your injury. You have redness or more swelling around your injury. You have tingling or numbness at your injury or lower than your injury, and it does not go away when you take off the bandage. Summary Many injuries can be cared for using rest, ice, compression, and elevation (RICE therapy). You can go back to your normal activities when your doctor says it is okay and when you can do themwithout pain. Put ice on the injured area as told by your doctor. Get help if your symptoms get worse or if you keep having pain and swelling. This information is not intended to replace advice given to you by your health care provider. Make sure you discuss any questions you have with your health care provider. Document Revised: 04/10/2021 Document Reviewed: 04/10/2021 [employer] Patient Education 2022 [employer]. 01/02/2023 14:58:09 How to Use a Sling, Sfhn-ty-Tysa How to Use a Sling A sling is a type of hanging bandage. You wear it around your neck to protect an injured arm, shoulder, or other body part. You may need to wear a sling so that your injured body part does not move (is immobilized) while it heals. Keeping the injured part of your body still can lessen pain and speed up healing. Your doctor may suggest that you use a sling if you have: A broken arm. A broken collarbone. A shoulder or elbow injury. Shoulder, arm, wrist, or hand surgery. What are the risks? Wearing a sling is safe. In some cases, wearing a sling the wrong way can: Make the injury worse. Cause soreness, stiffness, or loss of feeling (numbness). Affect blood flow (circulation) in the arm and hand. This can cause tingling or loss of feeling in the fingers or hands. How to use a sling Follow instructions from your doctor about how and when to wear your sling. Your doctor will show you or tell you: How to put on the sling. How to adjust the sling. When and how often to wear the sling. How to take off the sling. The way that you use a sling depends on your injury. Follow these instructions (unless your doctor tells you other instructions): Wear the sling so that your elbow bends to the shape of a capital letter L (at a 90-degree angle,also called a right angle). Make sure the sling supports your elbow, wrist, and hand. Adjust the sling if your fingers or hand start to tingle or lose feeling. Follow these instructions at home: Try to not move your arm. Do not twist, lift, or move your arm in a way that could make your injury worse. Do not lean on your arm while you have to wear a sling. Do not lift anything with the hand or arm that is in the sling. Contact a doctor if: You have: ?Bruising, swelling, or pain that gets worse. ?Pain that does not get better with medicine. ?A fever. Your sling: ?Does not support your arm like it should. ?Gets damaged. Get help right away if: You lose feeling in your fingers. Your fingers: ?Are tingling. ?Turn blue. ?Feel cold to the touch. You cannot control the bleeding from your injury. You have shortness of breath. These symptoms may be an emergency. Get help right away. Call your local emergency services (911 int [place] Do not wait to see if the symptoms will go away. Do not drive yourself to the hospital. Summary A sling is a type of hanging bandage. You wear it around your neck to protect an injured arm, shoulder, or other body part. You may need to wear a sling so that your injured body part does not move (is immobilized) while itheals. The way that you use a sling depends on your injury. Follow instructions from your doctor about howand when to wear your sling. Wear the sling so that your elbow bends to the shape of a capital letter L. Know which problems should cause you to contact your doctor or get help. This information is not intended to replace advice given to you by your health care provider. Make sure you discuss any questions you have with your health care provider. Document Revised: 08/06/2021 Document Reviewed: 08/06/2021 [employer] Patient Education 2022 [employer]. 01/02/2023 14:58:09 Wrist Sprain, Adult Wrist Sprain, Adult A wrist sprain is a stretch or tear in the strong tissues that connect the wrist bones to each other. These strong tissues are called ligaments. There are three types of wrist sprains: Grade 1. The ligament is stretched more than normal. There may be a minor amount of wrist pain. Grade 2. The ligament is partially torn. You may be able to move your wrist, but not very much. There may be a moderate amount of wrist pain. Grade 3. The ligament or ligaments are completely torn. You may find it difficult to move your wrist even a little. There may be a significant amount of wrist pain. What are the causes? This condition may be caused by using the wrist too much during sports, exercise, or work. It can also happen due to a fall or during an accident. What increases the risk? You are more likely to develop this condition if: You had a previous wrist or arm injury. You have poor wrist strength and flexibility. You play contact sports, such as football or soccer. You participate in sports that may result in a fall, such as skateboarding, biking, skiing, or snowboarding. You do not exercise regularly. You use exercise equipment that does not fit well. What are the signs or symptoms? Symptoms of this condition include: Pain in the wrist, arm, or hand. Swelling or bruised skin near the wrist, hand, or arm. The skin may look yellow or blue. Stiffness or trouble moving the hand. Hearing a noise, like a pop or a snap, at the time of injury, or feeling a tear at the time of the injury. A warm feeling in the skin around the wrist. How is this diagnosed? This condition is diagnosed with a physical exam. Sometimes an X-ray is taken to make sure a bone did not break. You may also have an MRI of your wrist to check for torn ligaments. How is this treated? This condition is treated by resting and applying ice to your wrist. Additional treatment may include: Taking medicine for pain and inflammation. Wearing a splint, brace, or cast for a short period of time to keep your wrist from moving (immobilized). Doing exercises to strengthen and stretch your wrist. Having surgery. This may be done if the ligament is completely torn. Follow these instructions at home: If you have a splint or brace: Wear the splint or brace as told by your health care provider. Remove it only as told by your health care provider. Loosen it if your fingers tingle, become numb, or turn cold and blue. Keep it clean. If the splint or brace is not waterproof: ?Do not let it get wet. ?Cover it with a watertight covering when you take a bath or a shower. If you have a cast: Do not put pressure on any part of the cast until it is fully hardened. This may take several hours. Do not stick anything inside the cast to scratch your skin. Doing that increases your risk of infection. Check the skin around the cast every day. Tell your health care provider about any concerns. You may put lotion on dry skin around the edges of the cast. Do not put lotion on the skin underneath the cast. Keep it clean. If the cast is not waterproof: ?Do not let it get wet. ?Cover it with a watertight covering when you take a bath or shower. Managing pain, stiffness, and swelling If directed, put ice on the injured area. To do this: ?If you have a removable splint or brace, remove it as told by your health care provider. ?Put ice in a plastic bag. ?Place a towel between your skin and the bag or between the splint or cast and the bag. ?Leave the ice on for 20 minutes, 2 3 times a day. ?Remove the ice if your skin turns bright red. This is very important. If you cannot feel pain, heat, or cold, you have a greater risk of damage to the area. Move your fingers often to reduce stiffness and swelling. Raise (elevate) the injured area above the level of your heart while you are sitting or lying down. Activity Rest your wrist as told by your health care provider. Do not do things that cause pain. Ask your health care provider when it is safe to drive if you have a splint, brace, or cast on yourwrist. Do exercises as told by your health care provider. Return to your normal activities as told by your health care provider. Ask your health care provider what activities are safe for you. General instructions Take qely-mui-yihavlz and prescription medicines only as told by your health care provider. Do not use any products that contain nicotine or tobacco, such as cigarettes, e- cigarettes, and chewing tobacco. These can delay healing. If you need help quitting, ask your health care provider. Keep all follow-up visits. This is important. Contact a health care provider if: Your pain, bruising, or swelling gets worse. Your skin becomes red, gets a rash, or has open sores. Your pain does not get better or it gets worse. Get help right away if: You have a new or sudden sharp pain in the hand, arm, or wrist. You have tingling or numbness in your hand. Your fingers turn white, very red, or cold and blue. You cannot move your fingers. Summary A wrist sprain is damage to ligaments in your wrist. Wrist sprains can range from mild to severe. Return to your normal activities as told by your health care provider. Ask your health care provider what activities are safe for you. You may need to wear a splint, brace, or cast for a short period of time. This information is not intended to replace advice given to you by your health care provider. Make sure you discuss any questions you have with your health care provider. Document Revised: 10/28/2020 Document Reviewed: 10/28/2020 [employer] Patient Education 2022 [employer]. Follow Up Care 01/02/2023 14:00:54 With:Fausto Lynch Address: [address] [place] [phone]- Business (1) When:01/05/2023 14:42:16 With:PORTIA GOLDEN Address: [address] [place] [phone] Business (1) When:Within 3 Day(s) [facility]07-01-2023 Evaluation + Plan noteExtracted from: Title:ED Note Author:Val DAVIES, Nu Singh Date:01/02/23 1. Sprain of right wrist (S6 3.501A: Unspecified sprain of right wrist, initial encounter) Orders: Sling Apply Splint Application Wrist Future Scheduled Tests Laboratory* Basic Metabolic Panel 01/12/22 * CBC w/ Auto Diff 01/12/22 [facility]04-24-2023 Hospital Discharge instructions Patient Education 10/26/2022 10:41:07 Overactive Bladder, Adult Overactive Bladder, Adult Overactive bladder is a condition in which a person has a sudden and frequent need to urinate. A person might also leak urine if he or she cannot get to the bathroom fast enough (urinary incontinence). Sometimes, symptoms can interfere with work or social activities. What are the causes? Overactive bladder is associated with poor nerve signals between your bladder and your brain. Your bladder may get the signal to empty before it is full. You may also have very sensitive muscles thatmake your bladder squeeze too soon. This condition may also be caused by other factors, such as: Medical conditions: ?Urinary tract infection. ?Infection of nearby tissues. ?Prostate enlargement. ?Bladder stones, inflammation, or tumors. ?Diabetes. ?Muscle or nerve weakness, especially from these conditions: ?A spinal cord injury. ?Stroke. ?Multiple sclerosis. ?Parkinson's disease. Other causes: ?Surgery on the uterus or urethra. ?Drinking too much caffeine or alcohol. ?Certain medicines, especially those that eliminate extra fluid in the body (diuretics). ?Constipation. What increases the risk? You may be at greater risk for overactive bladder if you: Are an older adult. Smoke. Are going through menopause. Have prostate problems. Have a neurological disease, such as stroke, dementia, Parkinson's disease, or multiple sclerosis (MS). Eat or drink alcohol, spicy food, caffeine, and other things that irritate the bladder. Are overweight or obese. What are the signs or symptoms? Symptoms of this condition include a sudden, strong urge to urinate. Other symptoms include: Leaking urine. Urinating 8 or more times a day. Waking up to urinate 2 or more times overnight. How is this diagnosed? This condition may be diagnosed based on: Your symptoms and medical history. A physical exam. Blood or urine tests to check for possible causes, such as infection. You may also need to see a health care provider who specializes in urinary tract problems. This is called a urologist. How is this treated? Treatment for overactive bladder depends on the cause of your condition and whether it is mild or severe. Treatment may include: Bladder training, such as: ?Learning to control the urge to urinate by following a schedule to urinate at regular intervals. ?Doing Kegel exercises to strengthen the pelvic floor muscles that support your bladder. Special devices, such as: ?Biofeedback. This uses sensors to help you become aware of your body's signals. ?Electrical stimulation. This uses electrodes placed inside the body (implanted) or outside the body. These electrodes send gentle pulses of electricity to strengthen the nerves or muscles that control the bladder. ?Women may use a plastic device, called a pessary, that fits into the vagina and supports the bladder. Medicines, such as: ?Antibiotics to treat bladder infection. ?Antispasmodics to stop the bladder from releasing urine at the wrong time. ?Tricyclic antidepressants to relax bladder muscles. ?Injections of botulinum toxin type A directly into the bladder tissue to relax bladder muscles. Surgery, such as: ?A device may be implanted to help manage the nerve signals that control urination. ?An electrode may be implanted to stimulate electrical signals in the bladder. ?A procedure may be done to change the shape of the bladder. This is done only in very severe cases. Follow these instructions at home: Eating and drinking Make diet or lifestyle changes recommended by your health care provider. These may include: ?Drinking fluids throughout the day and not only with meals. ?Cutting down on caffeine or alcohol. ?Eating a healthy and balanced diet to prevent constipation. This may include: ?Choosing foods that are high in fiber, such as beans, whole grains, and fresh fruits and vegetables. ?Limiting foods that are high in fat and processed sugars, such as fried and sweet foods. Lifestyle Lose weight if needed. Do not use any products that contain nicotine or tobacco. These include cigarettes, chewing tobacco, and vaping devices, such as e-cigarettes. If you need help quitting, ask your health care provider. General instructions Take kezn-acl-thucpkz and prescription medicines only as told by your health care provider. If you were prescribed an antibiotic medicine, take it as told by your health care provider. Do notstop taking the antibiotic even if you start to feel better. Use any implants or pessary as told by your health care provider. If needed, wear pads to absorb urine leakage. Keep a log to track how much and when you drink, and when you need to urinate. This will help your health care provider monitor your condition. Keep all follow-up visits. This is important. Contact a health care provider if: You have a fever or chills. Your symptoms do not get better with treatment. Your pain and discomfort get worse. You have more frequent urges to urinate. Get help right away if: You are not able to control your bladder. Summary Overactive bladder refers to a condition in which a person has a sudden and frequent need to urinate. Several conditions may lead to an overactive bladder. Treatment for overactive bladder depends on the cause and severity of your condition. Making lifestyle changes, doing Kegel exercises, keeping a log, and taking medicines can help with this condition. This information is not intended to replace advice given to you by your health care provider. Make sure you discuss any questions you have with your health care provider. Document Revised: 03/10/2021 Document Reviewed: 03/10/2021 [employer] Patient Education 2022 [employer]. Follow Up Care 10/12/2022 12:57:11 With:Remington CURTIS, ALFONSO Saldana, URO Address: When: Unknown [facility] 03-27-2023 Hospital Discharge instructions Patient Education 09/28/2022 15:16:45 Interstitial Cystitis Interstitial Cystitis Interstitial cystitis is inflammation of the bladder. This may cause pain in the bladder area as well as a frequent and urgent need to urinate. The bladder is a hollow organ in the lower part of the abdomen. It stores urine after the urine is made in the kidneys. The severity of interstitial cystitis can vary from person to person. You may have flare-ups, and then your symptoms may go away for a while. For many people, it becomes a long-term (chronic) problem. What are the causes? The cause of this condition is not known. What increases the risk? The following factors may make you more likely to develop this condition: You are female. You have fibromyalgia. You have irritable bowel syndrome (IBS). You have endometriosis. This condition may be aggravated by: Stress. Smoking. Spicy foods. What are the signs or symptoms? Symptoms of interstitial cystitis vary, and they can change management lead time. Symptoms may include: Discomfort or pain in the bladder area, which is in the lower abdomen. Pain can range from mild to severe. The pain may change in intensity as the bladder fills with urine or as it empties. Pain in the pelvic area, between the hip bones. An urgent need to urinate. Frequent urination. Pain during urination. Pain during sex. Blood in the urine. For women, symptoms often get worse during menstruation. How is this diagnosed? This condition is diagnosed based on your symptoms, your medical history, and a physical exam. You may have tests to rule out other conditions, such as: Urine tests. Cystoscopy. For this test, a tool similar to a very thin telescope is used to look into your bladder. Biopsy. This involves taking a sample of tissue from the bladder to be examined under a microscope. How is this treated? There is no cure for this condition, but treatment can help you control your symptoms. Work closelywith your health care provider to find the most effective treatments for you. Treatment options mayinclude: Medicines to relieve pain and reduce how often you feel the need to urinate. Learning ways to control when you urinate (bladder training). Lifestyle changes, such as changing your diet or taking steps to control stress. Using a device that provides electrical stimulation to your nerves, which can relieve pain (neuromodulation therapy). The device is placed on your back, where it blocks the nerves that cause you to feel pain in your bladder area. A procedure that stretches your bladder by filling it with air or fluid. Surgery. This is rare. It is only done for extreme cases, if other treatments do not help. Follow these instructions at home: Bladder training Use bladder training techniques as directed. Techniques may include: ?Urinating at scheduled times. ?Training yourself to delay urination. ?Doing exercises (Kegel exercises) to strengthen the muscles that control urine flow. Keep a bladder diary. ?Write down the times that you urinate and any symptoms that you have. This can help you find out which foods, liquids, or activities make your symptoms worse. ?Use your bladder diary to schedule bathroom trips. If you are away from home, plan to be near a bathroom at each of your scheduled times. Make sure that you urinate just before you leave the house and just before you go to bed. Eating and drinking Make dietary changes as recommended by your health care provider. You may need to avoid: ?Spicy foods. ?Foods that contain a lot of potassium. Limit your intake of beverages that make you need to urinate. These include: ?Caffeinated beverages like soda, coffee, and tea. ?Alcohol. General instructions Take nscb-dzw-[id number] and prescription medicines only as told by your health care provider. Do not drink alcohol. You can try a warm or cool compress over your bladder for comfort. Avoid wearing tight clothing. Do not use any products that contain nicotine or tobacco, such as cigarettes and e-cigarettes. If you need help quitting, ask your health care provider. Keep all follow-up visits as told by your health care provider. This is important. Contact a health care provider if you have: Symptoms that do not get better with treatment. Pain or discomfort that gets worse. More frequent urges to urinate. A fever. Get help right away if: You have no control over when you urinate. Summary Interstitial cystitis is inflammation of the bladder. This condition may cause pain in the bladder area as well as a frequent and urgent need to urinate. You may have flare-ups of the condition, and then it may go away for a while. For many people, it becomes a long-term (chronic) problem. There is no cure for interstitial cystitis, but treatment methods are available to control your symptoms. This information is not intended to replace advice given to you by your health care provider. Make sure you discuss any questions you have with your health care provider. Document Released: 02/19/2005 Document Revised: 06/03/2018 Document Reviewed: 05/16/2018 [employer] Patient Education 2020 [employer]. Follow Up Care 06/15/2022 13:52:37 With:Remington CURTIS, ALFONSO Saldana, URO Address: When: Unknown [facility] 12-12-2022 Hospital Discharge instructions Patient Education 06/15/2022 13:40:54 Interstitial Cystitis Interstitial Cystitis Interstitial cystitis is inflammation of the bladder. This may cause pain in the bladder area as well as a frequent and urgent need to urinate. The bladder is a hollow organ in the lower part of the abdomen. It stores urine after the urine is made in the kidneys. The severity of interstitial cystitis can vary from person to person. You may have flare-ups, and then your symptoms may go away for a while. For many people, it becomes a long-term (chronic) problem. What are the causes? The cause of this condition is not known. What increases the risk? The following factors may make you more likely to develop this condition: You are female. You have fibromyalgia. You have irritable bowel syndrome (IBS). You have endometriosis. This condition may be aggravated by: Stress. Smoking. Spicy foods. What are the signs or symptoms? Symptoms of interstitial cystitis vary, and they can change management lead time. Symptoms may include: Discomfort or pain in the bladder area, which is in the lower abdomen. Pain can range from mild to severe. The pain may change in intensity as the bladder fills with urine or as it empties. Pain in the pelvic area, between the hip bones. An urgent need to urinate. Frequent urination. Pain during urination. Pain during sex. Blood in the urine. For women, symptoms often get worse during menstruation. How is this diagnosed? This condition is diagnosed based on your symptoms, your medical history, and a physical exam. You may have tests to rule out other conditions, such as: Urine tests. Cystoscopy. For this test, a tool similar to a very thin telescope is used to look into your bladder. Biopsy. This involves taking a sample of tissue from the bladder to be examined under a microscope. How is this treated? There is no cure for this condition, but treatment can help you control your symptoms. Work closelywith your health care provider to find the most effective treatments for you. Treatment options mayinclude: Medicines to relieve pain and reduce how often you feel the need to urinate. Learning ways to control when you urinate (bladder training). Lifestyle changes, such as changing your diet or taking steps to control stress. Using a device that provides electrical stimulation to your nerves, which can relieve pain (neuromodulation therapy). The device is placed on your back, where it blocks the nerves that cause you to feel pain in your bladder area. A procedure that stretches your bladder by filling it with air or fluid. Surgery. This is rare. It is only done for extreme cases, if other treatments do not help. Follow these instructions at home: Bladder training Use bladder training techniques as directed. Techniques may include: ?Urinating at scheduled times. ?Training yourself to delay urination. ?Doing exercises (Kegel exercises) to strengthen the muscles that control urine flow. Keep a bladder diary. ?Write down the times that you urinate and any symptoms that you have. This can help you find out which foods, liquids, or activities make your symptoms worse. ?Use your bladder diary to schedule bathroom trips. If you are away from home, plan to be near a bathroom at each of your scheduled times. Make sure that you urinate just before you leave the house and just before you go to bed. Eating and drinking Make dietary changes as recommended by your health care provider. You may need to avoid: ?Spicy foods. ?Foods that contain a lot of potassium. Limit your intake of beverages that make you need to urinate. These include: ?Caffeinated beverages like soda, coffee, and tea. ?Alcohol. General instructions Take rteo-xqm-iwrczzh and prescription medicines only as told by your health care provider. Do not drink alcohol. You can try a warm or cool compress over your bladder for comfort. Avoid wearing tight clothing. Do not use any products that contain nicotine or tobacco, such as cigarettes and e-cigarettes. If you need help quitting, ask your health care provider. Keep all follow-up visits as told by your health care provider. This is important. Contact a health care provider if you have: Symptoms that do not get better with treatment. Pain or discomfort that gets worse. More frequent urges to urinate. A fever. Get help right away if: You have no control over when you urinate. Summary Interstitial cystitis is inflammation of the bladder. This condition may cause pain in the bladder area as well as a frequent and urgent need to urinate. You may have flare-ups of the condition, and then it may go away for a while. For many people, it becomes a long-term (chronic) problem. There is no cure for interstitial cystitis, but treatment methods are available to control your symptoms. This information is not intended to replace advice given to you by your health care provider. Make sure you discuss any questions you have with your health care provider. Document Released: 02/19/2005 Document Revised: 06/03/2018 Document Reviewed: 05/16/2018 [employer] Patient Education 2020 [employer]. Follow Up Care 04/15/2022 09:50:30 With:Remington CURTIS, ALFONSO Saldana, URO Address: When: Unknown [facility] 11-29-2022 Hospital Discharge instructions Patient Education 06/02/2022 11:24:42 Sinusitis, Adult Sinusitis, Adult Sinusitis is inflammation of your sinuses. Sinuses are hollow spaces in the bones around your face.Your sinuses are located: Around your eyes. In the middle of your forehead. Behind your nose. In your cheekbones. Mucus normally drains out of your sinuses. When your nasal tissues become inflamed or swollen, mucus can become trapped or blocked. This allows bacteria, viruses, and fungi to grow, which leads to infection. Most infections of the sinuses are caused by a virus. Sinusitis can develop quickly. It can last for up to 4 weeks (acute) or for more than 12 weeks (chronic). Sinusitis often develops after a cold. What are the causes? This condition is caused by anything that creates swelling in the sinuses or stops mucus from draining. This includes: Allergies. Asthma. Infection from bacteria or viruses. Deformities or blockages in your nose or sinuses. Abnormal growths in the nose (nasal polyps). Pollutants, such as chemicals or irritants in the air. Infection from fungi (rare). What increases the risk? You are more likely to develop this condition if you: Have a weak body defense system (immune system). Do a lot of swimming or diving. Overuse nasal sprays. Smoke. What are the signs or symptoms? The main symptoms of this condition are pain and a feeling of pressure around the affected sinuses.Other symptoms include: Stuffy nose or congestion. Thick drainage from your nose. Swelling and warmth over the affected sinuses. Headache. Upper toothache. A cough that may get worse at night. Extra mucus that collects in the throat or the back of the nose (postnasal drip). Decreased sense of smell and taste. Fatigue. A fever. Sore throat. Bad breath. How is this diagnosed? This condition is diagnosed based on: Your symptoms. Your medical history. A physical exam. Tests to find out if your condition is acute or chronic. This may include: ?Checking your nose for nasal polyps. ?Viewing your sinuses using a device that has a light (endoscope). ?Testing for allergies or bacteria. ?Imaging tests, such as an MRI or CT scan. In rare cases, a bone biopsy may be done to rule out more serious types of fungal sinus disease. How is this treated? Treatment for sinusitis depends on the cause and whether your condition is chronic or acute. If caused by a virus, your symptoms should go away on their own within 10 days. You may be given medicines to relieve symptoms. They include: ?Medicines that shrink swollen nasal passages (topical intranasal decongestants). ?Medicines that treat allergies (antihistamines). ?A spray that eases inflammation of the nostrils (topical intranasal corticosteroids). ?Rinses that help get rid of thick mucus in your nose (nasal saline washes). If caused by bacteria, your health care provider may recommend waiting to see if your symptoms improve. Most bacterial infections will get better without antibiotic medicine. You may be given antibiotics if you have: ?A severe infection. ?A weak immune system. If caused by narrow nasal passages or nasal polyps, you may need to have surgery. Follow these instructions at home: Medicines Take, use, or apply bsoc-tsf-eqqvdoc and prescription medicines only as told by your health care provider. These may include nasal sprays. If you were prescribed an antibiotic medicine, take it as told by your health care provider. Do notstop taking the antibiotic even if you start to feel better. Hydrate and humidify Drink enough fluid to keep your urine pale yellow. Staying hydrated will help to thin your mucus. Use a cool mist humidifier to keep the humidity level in your home above 50%. Inhale steam for 10 15 minutes, 3 4 times a day, or as told by your health care provider. You can do this in the bathroom while a hot shower is running. Limit your exposure to cool or dry air. Rest Rest as much as possible. Sleep with your head raised (elevated). Make sure you get enough sleep each night. General instructions Apply a warm, moist washcloth to your face 3 4 times a day or as told by your health care provider.This will help with discomfort. Wash your hands often with soap and water to reduce your exposure to germs. If soap and water are not available, use hand credit collections specialist. Do not smoke. Avoid being around people who are smoking (secondhand smoke). Keep all follow-up visits as told by your health care provider. This is important. Contact a health care provider if: You have a fever. Your symptoms get worse. Your symptoms do not improve within 10 days. Get help right away if: You have a severe headache. You have persistent vomiting. You have severe pain or swelling around your face or eyes. You have vision problems. You develop confusion. Your neck is stiff. You have trouble breathing. Summary Sinusitis is soreness and inflammation of your sinuses. Sinuses are hollow spaces in the bones around your face. This condition is caused by nasal tissues that become inflamed or swollen. The swelling traps or blocks the flow of mucus. This allows bacteria, viruses, and fungi to grow, which leads to infection. If you were prescribed an antibiotic medicine, take it as told by your health care provider. Do notstop taking the antibiotic even if you start to feel better. Keep all follow-up visits as told by your health care provider. This is important. This information is not intended to replace advice given to you by your health care provider. Make sure you discuss any questions you have with your health care provider. Document Released: 06/21/2006 Document Revised: 11/21/2018 Document Reviewed: 11/21/2018 [employer] Patient Education 2020 [employer]. Follow Up Care 06/02/2022 08:23:36 With:Leno PALACIOS, REFINERY OPERATOR [employer]ATION PLANT-LEAD MOBILE DEVELOPER, Darlene Staples Address: [address] [place] [phone] When: only if needed [facility] [place] 10-12-2022 Hospital Discharge instructions Patient Education 04/15/2022 09:31:42 Interstitial Cystitis Interstitial Cystitis Interstitial cystitis is inflammation of the bladder. This may cause pain in the bladder area as well as a frequent and urgent need to urinate. The bladder is a hollow organ in the lower part of the abdomen. It stores urine after the urine is made in the kidneys. The severity of interstitial cystitis can vary from person to person. You may have flare-ups, and then your symptoms may go away for a while. For many people, it becomes a long-term (chronic) problem. What are the causes? The cause of this condition is not known. What increases the risk? The following factors may make you more likely to develop this condition: You are female. You have fibromyalgia. You have irritable bowel syndrome (IBS). You have endometriosis. This condition may be aggravated by: Stress. Smoking. Spicy foods. What are the signs or symptoms? Symptoms of interstitial cystitis vary, and they can change management lead time. Symptoms may include: Discomfort or pain in the bladder area, which is in the lower abdomen. Pain can range from mild to severe. The pain may change in intensity as the bladder fills with urine or as it empties. Pain in the pelvic area, between the hip bones. An urgent need to urinate. Frequent urination. Pain during urination. Pain during sex. Blood in the urine. For women, symptoms often get worse during menstruation. How is this diagnosed? This condition is diagnosed based on your symptoms, your medical history, and a physical exam. You may have tests to rule out other conditions, such as: Urine tests. Cystoscopy. For this test, a tool similar to a very thin telescope is used to look into your bladder. Biopsy. This involves taking a sample of tissue from the bladder to be examined under a microscope. How is this treated? There is no cure for this condition, but treatment can help you control your symptoms. Work closelywith your health care provider to find the most effective treatments for you. Treatment options mayinclude: Medicines to relieve pain and reduce how often you feel the need to urinate. Learning ways to control when you urinate (bladder training). Lifestyle changes, such as changing your diet or taking steps to control stress. Using a device that provides electrical stimulation to your nerves, which can relieve pain (neuromodulation therapy). The device is placed on your back, where it blocks the nerves that cause you to feel pain in your bladder area. A procedure that stretches your bladder by filling it with air or fluid. Surgery. This is rare. It is only done for extreme cases, if other treatments do not help. Follow these instructions at home: Bladder training Use bladder training techniques as directed. Techniques may include: ?Urinating at scheduled times. ?Training yourself to delay urination. ?Doing exercises (Kegel exercises) to strengthen the muscles that control urine flow. Keep a bladder diary. ?Write down the times that you urinate and any symptoms that you have. This can help you find out which foods, liquids, or activities make your symptoms worse. ?Use your bladder diary to schedule bathroom trips. If you are away from home, plan to be near a bathroom at each of your scheduled times. Make sure that you urinate just before you leave the house and just before you go to bed. Eating and drinking Make dietary changes as recommended by your health care provider. You may need to avoid: ?Spicy foods. ?Foods that contain a lot of potassium. Limit your intake of beverages that make you need to urinate. These include: ?Caffeinated beverages like soda, coffee, and tea. ?Alcohol. General instructions Take xtbk-bxy-ohyhtmu and prescription medicines only as told by your health care provider. Do not drink alcohol. You can try a warm or cool compress over your bladder for comfort. Avoid wearing tight clothing. Do not use any products that contain nicotine or tobacco, such as cigarettes and e-cigarettes. If you need help quitting, ask your health care provider. Keep all follow-up visits as told by your health care provider. This is important. Contact a health care provider if you have: Symptoms that do not get better with treatment. Pain or discomfort that gets worse. More frequent urges to urinate. A fever. Get help right away if: You have no control over when you urinate. Summary Interstitial cystitis is inflammation of the bladder. This condition may cause pain in the bladder area as well as a frequent and urgent need to urinate. You may have flare-ups of the condition, and then it may go away for a while. For many people, it becomes a long-term (chronic) problem. There is no cure for interstitial cystitis, but treatment methods are available to control your symptoms. This information is not intended to replace advice given to you by your health care provider. Make sure you discuss any questions you have with your health care provider. Document Released: 02/19/2005 Document Revised: 06/03/2018 Document Reviewed: 05/16/2018 [employer] Patient Education 2020 [employer]. Follow Up Care 03/25/2022 08:13:02 With:Remington CURTIS, ALFONSO Saldana, URO Address: [address] [place] [phone] When:05/27/2022 [facility] 09-01-2022 Hospital Discharge instructions Patient Education 03/05/2022 16:07:28 Interstitial Cystitis Interstitial Cystitis Interstitial cystitis is inflammation of the bladder. This may cause pain in the bladder area as well as a frequent and urgent need to urinate. The bladder is a hollow organ in the lower part of the abdomen. It stores urine after the urine is made in the kidneys. The severity of interstitial cystitis can vary from person to person. You may have flare-ups, and then your symptoms may go away for a while. For many people, it becomes a long-term (chronic) problem. What are the causes? The cause of this condition is not known. What increases the risk? The following factors may make you more likely to develop this condition: You are female. You have fibromyalgia. You have irritable bowel syndrome (IBS). You have endometriosis. This condition may be aggravated by: Stress. Smoking. Spicy foods. What are the signs or symptoms? Symptoms of interstitial cystitis vary, and they can change management lead time. Symptoms may include: Discomfort or pain in the bladder area, which is in the lower abdomen. Pain can range from mild to severe. The pain may change in intensity as the bladder fills with urine or as it empties. Pain in the pelvic area, between the hip bones. An urgent need to urinate. Frequent urination. Pain during urination. Pain during sex. Blood in the urine. For women, symptoms often get worse during menstruation. How is this diagnosed? This condition is diagnosed based on your symptoms, your medical history, and a physical exam. You may have tests to rule out other conditions, such as: Urine tests. Cystoscopy. For this test, a tool similar to a very thin telescope is used to look into your bladder. Biopsy. This involves taking a sample of tissue from the bladder to be examined under a microscope. How is this treated? There is no cure for this condition, but treatment can help you control your symptoms. Work closelywith your health care provider to find the most effective treatments for you. Treatment options mayinclude: Medicines to relieve pain and reduce how often you feel the need to urinate. Learning ways to control when you urinate (bladder training). Lifestyle changes, such as changing your diet or taking steps to control stress. Using a device that provides electrical stimulation to your nerves, which can relieve pain (neuromodulation therapy). The device is placed on your back, where it blocks the nerves that cause you to feel pain in your bladder area. A procedure that stretches your bladder by filling it with air or fluid. Surgery. This is rare. It is only done for extreme cases, if other treatments do not help. Follow these instructions at home: Bladder training Use bladder training techniques as directed. Techniques may include: ?Urinating at scheduled times. ?Training yourself to delay urination. ?Doing exercises (Kegel exercises) to strengthen the muscles that control urine flow. Keep a bladder diary. ?Write down the times that you urinate and any symptoms that you have. This can help you find out which foods, liquids, or activities make your symptoms worse. ?Use your bladder diary to schedule bathroom trips. If you are away from home, plan to be near a bathroom at each of your scheduled times. Make sure that you urinate just before you leave the house and just before you go to bed. Eating and drinking Make dietary changes as recommended by your health care provider. You may need to avoid: ?Spicy foods. ?Foods that contain a lot of potassium. Limit your intake of beverages that make you need to urinate. These include: ?Caffeinated beverages like soda, coffee, and tea. ?Alcohol. General instructions Take ildh-oaj-gkzpwvm and prescription medicines only as told by your health care provider. Do not drink alcohol. You can try a warm or cool compress over your bladder for comfort. Avoid wearing tight clothing. Do not use any products that contain nicotine or tobacco, such as cigarettes and e-cigarettes. If you need help quitting, ask your health care provider. Keep all follow-up visits as told by your health care provider. This is important. Contact a health care provider if you have: Symptoms that do not get better with treatment. Pain or discomfort that gets worse. More frequent urges to urinate. A fever. Get help right away if: You have no control over when you urinate. Summary Interstitial cystitis is inflammation of the bladder. This condition may cause pain in the bladder area as well as a frequent and urgent need to urinate. You may have flare-ups of the condition, and then it may go away for a while. For many people, it becomes a long-term (chronic) problem. There is no cure for interstitial cystitis, but treatment methods are available to control your symptoms. This information is not intended to replace advice given to you by your health care provider. Make sure you discuss any questions you have with your health care provider. Document Released: 02/19/2005 Document Revised: 06/03/2018 Document Reviewed: 05/16/2018 [employer] Patient Education 2020 [employer]. Follow Up Care 01/08/2022 16:13:15 With:Pao Macedo MD, URL, URO Address: When: Unknown [facility] 07-11-2022 Evaluation + Plan note Future Scheduled Tests Laboratory* Basic Metabolic Panel 01/12/22 * CBC w/ Auto Diff 01/12/22 [facility] 05-31-2022 Evaluation + Plan noteExtracted from: Title:EU - Cysto, hydrodistension- FT Author:Pao Macedo MD Date:12/02/21 Impression and Plan Diagnosis Interstitial cystitis ([id number] N30.10, Discharge, Medical). Diagnosis Interstitial cystitis ([id number] N30.10, Discharge, Medical). [facility]05-31-2022 Hospital Discharge instructions Patient Education 12/02/2021 09:22:28 Post Op Patient Instructions - FT (CUSTOM) 12/02/2021 09:15:39 Hydrodistention of the Bladder, Care After Hydrodistention of the Bladder, Care After This sheet gives you information about how to care for yourself after your procedure. Your health care provider may also give you more specific instructions. If you have problems or questions, contact your health care provider. What can I expect after the procedure? After the procedure, it is common to have: Soreness and mild discomfort in your lower abdomen. Mild pain when you urinate. Pain should stop within a few minutes after you urinate. This may last for up to a week. A small amount of blood in your urine. Follow these instructions at home: Medicines Take gaev-quc-kcuztuc and prescription medicines only as told by your health care provider. Do not drive for 24 hours if you were given a sedative during your procedure. Do not drive or use heavy machinery while taking prescription pain medicine. If you were prescribed an antibiotic medicine, take it as told by your health care provider. Do notstop taking the antibiotic even if you start to feel better. Lifestyle Do not use any products that contain nicotine or tobacco, such as cigarettes, e- cigarettes, and chewing tobacco. If you need help quitting, ask your health care provider. Activity Return to your normal activities as told by your health care provider. Ask your health care provider what activities are safe for you. Do not lift anything that is heavier than 10 lb (4.5 kg), or the limit that you are told, until your health care provider says that it is safe. Eating and drinking Follow instructions from your health care provider about eating or drinking restrictions. Drink enough fluid to keep your urine pale yellow. General instructions If a sample was removed for testing (biopsy), it is your responsibility to get your test results. Ask your health care provider or the department doing the test when your results will be ready. Keep all follow-up visits as told by your health care provider. This is important. Contact a health care provider if you have: Blood clots in your urine. Pus in your urine. Pain that gets worse or does not get better with medicine, especially pain when you urinate. Difficulty urinating. Nausea or you vomit for more than 2 days after the procedure. A fever. Get help right away if you: Have severe pain in your abdomen. Cannot urinate. Have chest pain or difficulty breathing. Develop swelling or pain (or both) in your lower legs. Summary After this procedure, it is common to have soreness in your lower abdomen, mild pain when you urinate, and a small amount of blood in your urine. Return to your normal activities as told by your health care provider. Contact a health care provider if you have pain that gets worse, have a fever, see blood clots in your urine, or have difficulty urinating. Get help right away if you have severe pain in your abdomen, cannot urinate, have difficulty breathing, or develop swelling and pain in the legs. This information is not intended to replace advice given to you by your health care provider. Make sure you discuss any questions you have with your health care provider. Document Released: 06/01/2016 Document Revised: 10/12/2019 Document Reviewed: 12/29/2018 [employer] Patient Education 2020 [employer] Follow Up Care 11/20/2021 11:23:00 With:Pao Lue Address: [address] [phone] Business (1) When: Unknown Comments:Call for followup appointment in 1 month [facility]05-19-2022 Hospital Discharge instructions Patient Education 11/20/2021 10:59:16 Interstitial Cystitis Interstitial Cystitis Interstitial cystitis is inflammation of the bladder. This may cause pain in the bladder area as well as a frequent and urgent need to urinate. The bladder is a hollow organ in the lower part of the abdomen. It stores urine after the urine is made in the kidneys. The severity of interstitial cystitis can vary from person to person. You may have flare-ups, and then your symptoms may go away for a while. For many people, it becomes a long-term (chronic) problem. What are the causes? The cause of this condition is not known. What increases the risk? The following factors may make you more likely to develop this condition: You are female. You have fibromyalgia. You have irritable bowel syndrome (IBS). You have endometriosis. This condition may be aggravated by: Stress. Smoking. Spicy foods. What are the signs or symptoms? Symptoms of interstitial cystitis vary, and they can change management lead time. Symptoms may include: Discomfort or pain in the bladder area, which is in the lower abdomen. Pain can range from mild to severe. The pain may change in intensity as the bladder fills with urine or as it empties. Pain in the pelvic area, between the hip bones. An urgent need to urinate. Frequent urination. Pain during urination. Pain during sex. Blood in the urine. For women, symptoms often get worse during menstruation. How is this diagnosed? This condition is diagnosed based on your symptoms, your medical history, and a physical exam. You may have tests to rule out other conditions, such as: Urine tests. Cystoscopy. For this test, a tool similar to a very thin telescope is used to look into your bladder. Biopsy. This involves taking a sample of tissue from the bladder to be examined under a microscope. How is this treated? There is no cure for this condition, but treatment can help you control your symptoms. Work closelywith your health care provider to find the most effective treatments for you. Treatment options mayinclude: Medicines to relieve pain and reduce how often you feel the need to urinate. Learning ways to control when you urinate (bladder training). Lifestyle changes, such as changing your diet or taking steps to control stress. Using a device that provides electrical stimulation to your nerves, which can relieve pain (neuromodulation therapy). The device is placed on your back, where it blocks the nerves that cause you to feel pain in your bladder area. A procedure that stretches your bladder by filling it with air or fluid. Surgery. This is rare. It is only done for extreme cases, if other treatments do not help. Follow these instructions at home: Bladder training Use bladder training techniques as directed. Techniques may include: ?Urinating at scheduled times. ?Training yourself to delay urination. ?Doing exercises (Kegel exercises) to strengthen the muscles that control urine flow. Keep a bladder diary. ?Write down the times that you urinate and any symptoms that you have. This can help you find out which foods, liquids, or activities make your symptoms worse. ?Use your bladder diary to schedule bathroom trips. If you are away from home, plan to be near a bathroom at each of your scheduled times. Make sure that you urinate just before you leave the house and just before you go to bed. Eating and drinking Make dietary changes as recommended by your health care provider. You may need to avoid: ?Spicy foods. ?Foods that contain a lot of potassium. Limit your intake of beverages that make you need to urinate. These include: ?Caffeinated beverages like soda, coffee, and tea. ?Alcohol. General instructions Take wbpl-srn-qiljtaf and prescription medicines only as told by your health care provider. Do not drink alcohol. You can try a warm or cool compress over your bladder for comfort. Avoid wearing tight clothing. Do not use any products that contain nicotine or tobacco, such as cigarettes and e-cigarettes. If you need help quitting, ask your health care provider. Keep all follow-up visits as told by your health care provider. This is important. Contact a health care provider if you have: Symptoms that do not get better with treatment. Pain or discomfort that gets worse. More frequent urges to urinate. A fever. Get help right away if: You have no control over when you urinate. Summary Interstitial cystitis is inflammation of the bladder. This condition may cause pain in the bladder area as well as a frequent and urgent need to urinate. You may have flare-ups of the condition, and then it may go away for a while. For many people, it becomes a long-term (chronic) problem. There is no cure for interstitial cystitis, but treatment methods are available to control your symptoms. This information is not intended to replace advice given to you by your health care provider. Make sure you discuss any questions you have with your health care provider. Document Released: 02/19/2005 Document Revised: 06/03/2018 Document Reviewed: 05/16/2018 [employer] Patient Education 2020 [employer]. Follow Up Care 08/01/2021 08:44:33 With:Remington CURTIS, ALFONSO Saldana, URO Address: When: Unknown [facility] 05-17-2022 Hospital Discharge instructions Patient Education 11/18/2021 16:14:56 Skin Biopsy, Care After Skin Biopsy, Care After This sheet gives you information about how to care for yourself after your procedure. Your health care provider may also give you more specific instructions. If you have problems or questions, contact your health care provider. What can I expect after the procedure? After the procedure, it is common to have: Soreness. Bruising. Itching. Follow these instructions at home: Biopsy site care Follow instructions from your health care provider about how to take care of your biopsy site. Makesure you: Wash your hands with soap and water before and after you change your bandage (dressing). If soap and water are not available, use hand credit collections specialist. Apply ointment on your biopsy site as directed by your health care provider. Change your dressing as told by your health care provider. Leave stitches (sutures), skin glue, or adhesive strips in place. These skin closures may need to stay in place for 2 weeks or longer. If adhesive strip edges start to loosen and curl up, you may trim the loose edges. Do not remove adhesive strips completely unless your health care provider tells you to do that. If the biopsy area bleeds, apply gentle pressure for 10 minutes. Check your biopsy site every day for signs of infection. Check for: Redness, swelling, or pain. Fluid or blood. Warmth. Pus or a bad smell. General instructions Rest and then return to your normal activities as told by your health care provider. Take thhg-nfu-omyjxvk and prescription medicines only as told by your health care provider. Keep all follow-up visits as told by your health care provider. This is important. Contact a health care provider if: You have redness, swelling, or pain around your biopsy site. You have fluid or blood coming from your biopsy site. Your biopsy site feels warm to the touch. You have pus or a bad smell coming from your biopsy site. You have a fever. Your sutures, skin glue, or adhesive strips loosen or come off sooner than expected. Get help right away if: You have bleeding that does not stop with pressure or a dressing. Summary After the procedure, it is common to have soreness, bruising, and itching at the site. Follow instructions from your health care provider about how to take care of your biopsy site. Check your biopsy site every day for signs of infection. Contact a health care provider if you have redness, swelling, or pain around your biopsy site, or your biopsy site feels warm to the touch. Keep all follow-up visits as told by your health care provider. This is important. This information is not intended to replace advice given to you by your health care provider. Make sure you discuss any questions you have with your health care provider. Document Released: 07/17/2016 Document Revised: 12/19/2018 Document Reviewed: 12/19/2018 [employer] Patient Education 2020 [employer]. 11/18/2021 16:14:54 Excision of Skin Lesions Excision of Skin Lesions Excision of a skin lesion is the removal of a section of skin by making small cuts (incisions) in the skin. Through this process, the lesion is completely removed. This procedure is often done to treat or prevent cancer or infection. It may also be done to improve cosmetic appearance. The procedure may be done to remove: Cancerous (malignant) growths, such as basal cell carcinoma, squamous cell carcinoma, or melanoma. Noncancerous (benign) growths, such as a cyst or lipoma. Growths, such as moles or skin tags, which may be removed for cosmetic reasons. Various excision or surgical techniques may be used depending on your condition, the location of the lesion, and your overall health. Tell a health care provider about: Any allergies you have. All medicines you are taking, including vitamins, herbs, eye drops, creams, and tsac-efy-xddicqw medicines. Any problems you or family members have had with anesthetic medicines. Any blood disorders you have. Any surgeries you have had. Any medical conditions you have or have had. Whether you are or may be . What are the risks? Generally, this is a safe procedure. However, problems may occur, including: Bleeding. Infection. Scarring. Recurrence of the cyst, lipoma, or cancer. Changes in skin sensation or appearance, such as discoloration or swelling. Reaction to the anesthetics. Allergic reaction to surgical materials or ointments. Damage to nerves, blood vessels, muscles, or other structures. Continued pain. What happens before the procedure? Medicines Ask your health care provider about: Changing or stopping your regular medicines. This is especially important if you are taking diabetes medicines or blood thinners. Taking medicines such as aspirin and ibuprofen. These medicines can thin your blood. Do not take these medicines unless your health care provider tells you to take them. Taking eyqq-wfn-qpwlxan medicines, vitamins, herbs, and supplements. General instructions You may be asked to stop smoking. You may have an exam or testing. Ask your health care provider what steps will be taken to help prevent infection. These may include: ?Removing hair at the surgery site. ?Washing skin with a germ-killing soap. ?Taking antibiotic medicine. What happens during the procedure? You will be given a medicine to numb the area (local anesthetic). Your health care provider will remove the lesions using one of the following excision techniques. ?Complete surgical excision. This procedure may be done to treat a cancerous growth or a noncancerous cyst or lesion. ?A small scalpel or scissors will be used to gently cut around and under the lesion until it is completely removed. ?If bleeding occurs, it will be stopped with a device that delivers heat (electrocautery). ?The edges of the wound may be stitched (sutured) together. ?A bandage (dressing) will be applied. ?Samples will be sent to a lab for testing. ?Excision of a cyst. ?An incision will be made on the cyst. ?The entire cyst will be removed through the incision. ?The incision may be closed with sutures. ?Shave excision. This may be done to remove a mole or a skin tag. ?A small blade or an electrically heated loop instrument will be used to shave off the lesion. ?The wound is usually left to heal on its own without sutures. ?Punch excision. This may be done to remove a mole or a scar or to do a biopsy of the lesion. ?A small tool that is like a cookie cutter or a hole punch is used to cut a standing rock shape out of theskin. ?The outer edges of the skin will be sutured together. ?The sample may be sent to a lab for testing. ?Mohs micrographic surgery. This is usually done to treat skin cancer. This type of excision is mostly used on the face and ears. This procedure is minimally invasive, and it ensures the best cosmetic outcome. ?A scalpel or a loop instrument will be used to remove layers of the lesion until all the abnormal or cancerous tissue has been removed. ?The wound may be sutured, depending on its size. ?The tissue will be checked under a microscope right away. Each of the techniques may vary among health care providers and hospitals. At the end of any of these procedures, antibiotic ointment will be applied as needed. What happens after the procedure? Return to your normal activities as told by your health care provider. Ask your health care provider what activities are safe for you. It is up to you to get the results of your procedure. Ask your doctor, or the department that is doing the procedure, when your results will be ready. Talk with your health care provider to discuss any test results, treatment options, and if necessary, the need for more tests. Keep all follow-up visits as told by your health care provider. This is important. Summary Excision of a skin lesion is the removal of a section of skin by making small cuts (incisions) in the skin. This procedure is often done to treat or prevent cancer and infection, or it may be done toimprove cosmetic appearance. Various excision or surgical techniques may be used depending on your condition, the location of the lesion, and your overall health. After the procedure, talk with your health care provider to discuss any test results, treatment options, and if necessary, the need for more tests. Keep all follow-up visits as told by your health care provider. This is important. This information is not intended to replace advice given to you by your health care provider. Make sure you discuss any questions you have with your health care provider. Document Released: 09/15/2010 Document Revised: 12/28/2018 Document Reviewed: 12/28/2018 [employer] Patient Education 2020 [employer]. Follow Up Care 11/17/2021 15:40:24 With:CHICO SHELDONPORTIA Address: [address] [place] [address] When: only if needed [facility] 11-30-2021 Miscellaneous Notes* Assessment & Plan Note - Presley Baca MD - 06/03/2021 9:27 PM EST Associated Problem(s): Endometriosis Pt advised on surgical findings. Discussed relevant pathology. Surgical images reviewed and discussed. Incision sites examined; dry, intact, and well approximated. Advised pt. of Scar Away and mechanical massage to reduce scar formation. Findings within normal limits. Explained the vaginal cuff takes about 6 weeks to recover. No intercourse for 6 weeks. Explained any twinges felt are likely due to her body recovering. Granulation tissue formation discussed. Pt counseled tissue damage takes about 6-8 weeks to heal. No heavy lifting for 6-8 weeks. Explained up until 8 weeks post procedure, ocassional spotting is okay. Pt should never experience full menstrual-like bleeding again. If this occurs, pt should contact the office and return for re-evaluation. Pt instructed to use lubrication with intercourse once her body has healed and she is advised to manage the process. Discussed she is healing appropriately and may gradually return to all other activities of daily living as tolerated. Discussed usingNaprosyn or Aleve for continued pain management, reduction of chronic inflammation and help with fatigue symptoms. Pt advisedto apply OTC hydrocortisone cream to incision sites to promote optimal healing. Copy of surgical images given to pt. documented in this [id number] History of Present illness Narrative* Presley Baca MD - 06/02/2021 4:28 PM EST [facility] [address] [facility] [id number] POST-OPERATIVE VISIT Surgery: ROBOTIC ASSISTED LAPAROSCOPIC HYSTERECTOMY, BILATERAL SALPINGECTOMY, EXCISION OF ENDOMETRIOSIS, CYSTOSCOPY AND HYDRODISTENTION Surgery Date: 05/16/21 Surgeon: Presley Baca MD HPI: Sinai Tanner is a 26 y.o. yo female now 2 weeks Post-op (Pt presents for post op visit. She notes that she is doing very well. She notes that she is not requiring any pain medications. ) Pt presents for postoperative evaluation. She states her recovery process has been amazing. She states she is no longer taking any pain medication, just using medical marijuana to manage any discomfort. States she is still having some minor bladder discomfort that has been a challenge but feelssignificantly improved. She notes she had had some itching at the incision sites. Pt expresses gratitude for her postsurgical improvements. She reports doing well since surgery and is well and without fevers, chills, CP, SOB, chest papitations, severe abdominal or pelvic pain, nausea, vomiting, bladder or bowel issues. Her port site incisions have healed well. She denies heavy vaginal bleeding, ROS: Negative x 10 systems reviewed except as noted in the HPI. All past medical, surgical, social, family, allergy, and medication histories have been reviewed and updated in [facility] charting. Physical Exam: Physical Exam Constitutional: Appearance: Normal appearance. She is well-developed. Interventions: Face mask in place. HENT: Head: Normocephalic and atraumatic. Cardiovascular: Rate and Rhythm: Normal rate. Pulmonary: Effort: Pulmonary effort is normal. Abdominal: General: A surgical scar is present. Palpations: Abdomen is soft. Tenderness: There is no abdominal tenderness. Comments: Incisions healing well. Musculoskeletal: Cervical back: Normal range of motion and neck supple. Neurological: Mental Status: She is alert and oriented to person, place, and time. Skin: General: Skin is warm and dry. Psychiatric: Mood and Affect: Mood and affect normal. Thought Content: Thought content normal. Judgment: Judgment normal. Vitals and nursing note reviewed. Exam conducted with a java technical manager present. Assessment and Plan: Problem List Items Addressed This Visit RESOLVED: Dysmenorrhea Endometriosis Pt advised on surgical findings. Discussed relevant pathology. Surgical images reviewed and discussed. Incision sites examined; dry, intact, and well approximated. Advised pt. of Scar Away and mechanical massage to reduce scar formation. Findings within normal limits. Explained the vaginal cuff takes about 6 weeks to recover. No intercourse for 6 weeks. Explained any twinges felt are likely due to her body recovering. Granulation tissue formation discussed. Pt counseled tissue damage takes about 6-8 weeks to heal. No heavy lifting for 6-8 weeks. Explained up until 8 weeks post procedure, ocassional spotting is okay. Pt should never experience full menstrual-like bleeding again. If this occurs, pt should contact the office and return for re-evaluation. Pt instructed to use lubrication with intercourse once her body has healed and she is advised to manage the process. Discussed she is healing appropriately and may gradually return to all other activities of daily living as tolerated. Discussed usingNaprosyn or Aleve for continued pain management, reduction of chronic inflammation and help with fatigue symptoms. Pt advisedto apply OTC hydrocortisone cream to incision sites to promote optimal healing. Copy of surgical images given to pt. 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 Geovanna Ureña MA, acted as scribe on behalf of Dr. Presley Baca and accurately documented clinical information at the direction of the physician contemporaneously, while she performed the patient's clinical service. 06/02/21 4:28 PM documented in this [id number] History of Present illness Narrative* Lena Macdonald MD - 05/15/2021 5:13 PM EST Pt called requesting start time for her surgery tomorrow. Reports she was not contacted by the office or the hospital today. Apologized for the fact she did not receive a call. Pulled up the [facility] OR schedule and informed pt that her surgery is scheduled for 0730 and she will need to arrive at 0530. Pt verbalized understanding. Lena Macdonald MD Attending Physician [facility] documented in this [id number] Miscellaneous Notes* Telephone Encounter - Amy Guaman RN - 05/13/2021 12:28 PM EST Patient was seen in the office today for pre-op RN only visit. Post-op prescriptions entered after visit and routed to provider to sign. Patient is aware prescriptions will be available to [facility] prior to upcoming surgery. documented in this [id number] History of Present illness Narrative* Amy Guaman RN - 05/13/2021 11:43 AM EST [facility] [address] [place] [id number] PRE-OPERATIVE CONSULT Pre-Operative Visit: 05/13/21 Date Of Surgery: 05/16/21 Location Of Surgery: [facility] Pre-Op Dx: Endometriosis, pelvic pain, dysmenorrhea, female pelvic congestion syndrome Type Of Surgery: RALTH, BS, EOE Anesthesia Risk Factors: No history of anesthetic complications. Denies sleep apnea. Denies loose teeth/dentures. Surgical Risks: Laparoscopy for excision of endo Medical Risks: Denies medical risks Nursing Documentation: Pre and post-op instructions given to pt. Discussed the On Q pain pump and how to take care of it and remove it at home. Went over bowel prep instructions w/ pt and stressed the importance of completing the prep. Surgery handout provided to pt and advised of post-op ph# to call for problems. Pt verb an understanding of all instructions and surgery consent form signed. PAT today. COVID test completed today. Amy Guaman RN 05/13/21 11:43 AM documented in this [id number] Miscellaneous Notes* Telephone Encounter - Amy Guaman RN - 02/17/2021 9:22 AM EDT Per OV chart notes, prescriptions for Gabapentin and Zanaflex were supposed to be called in. This nurse called in both prescriptions to [facility] in [place]. * Telephone Encounter - Emily Dandre - 02/17/2021 8:57 AM EDT Patient saw Dr. Martínez and stated Gabapentin and another medication were supposed to be called in to her pharmacy. [facility] [address], [place] documented in this [id number] Miscellaneous Notes* Assessment & Plan Note - Presley Baca MD - 02/16/2021 9:18 PM EDT Associated Problem(s): Endometriosis Pelvic exam performed: Vaginal opening is narrow. Presacral neurectomy options discussed. Discussed multiple etiologies of pelvic pain including MANUFACTURE SPECIALIST vs vs GI vs MSK. IC symptomology discussed. Food triggers with elimination diet discussed. Medication options including Elmiron as well as amitriptyline with hydroxyzine discussed. Advised on dietary and lifestyle changes, bladder triggers, use of Elmiron, outpatient bladder instillations and intraoperative cystoscopy with hydrodistention. Water soluble fiber supplementation discussed. Discussed Metamucil and Benefiber options. Pt counseled these can act as stool bulking agents to better manage any bowel symptoms. Use as directed, in the morning followed by an extra glass of water. Pelvic floor therapy options discussed. Patient has undergone pelvic floor therapy secondary to recommendation. She did not feel like it was very successful. Pudendal neuralgia symptomology discussed. Gabapentin options discussed. Adenomyosis symptomology discussed. Advised on the benefit of hysterectomy in the situation. Discussed difficulty of evaluating whether hysterectomy would be beneficial for her. Advised on performing a paracervical block to see whether she gets relief from treating the uterus with anesthetic. The patient will sign a release of records to have outside records forwarded for review. Discussed referral to PM&R physician for further evaluation of pain radiating down her leg. Discussed referral to chronic pain specialist for further management. Rx written for Zanaflex for continued pain management. Rx written for gabapentin to manage nerve pain. documented in this [id number] History of Present illness Narrative* Presley Baca MD - 02/16/2021 8:11 PM EDT Results are within normal limits. * Presley Baca MD - 02/12/2021 10:51 AM EDT [facility] [address] [facility] [address] [facility] [id number] CONSULT VISIT Patient Name: Sinai Tanner : 1995 MR #: [id number] SUBJECTIVE: Sinai Tanner is a 26 y.o. female who presents for Dysmenorrhea and Consult (Pt c/o painful periods, nasuea, bloating.and GI issues, back pain, leg pain, rectal pain. Pt states she struggles with daily life and activites due to sx. Pt report laparoscopy in [address] Gustabo Rosales.) Pt presents to discuss hx of pain with menses. She notes hx of previous surgery with no relief in her symptoms. She notes her biggest issues are bladder and leg discomfort. She is also complaining ofpelvic pain with bloating, bowel and bladder issues. Reports she has tried Lupron medication which made her very, very sick. Notes her last dosage was the beginning of November. She admits to dyspareunia. She notes she has tried pelvic floor therapy, she has tried Flexeril with little relief in her symptoms. Pt states she is done having children. She states her has had a vasectomy. She admits to dyspareunia symptoms with clitoral discomfort. She notes the pain is affecting her overall quality of life. Review of Systems Constitutional: Negative for activity change, appetite change, fatigue and unexpected weight change. Respiratory: Negative for chest tightness and shortness of breath. Cardiovascular: Negative for chest pain, palpitations and leg swelling. Gastrointestinal: Negative for abdominal distention, abdominal pain, constipation, diarrhea, nauseaand vomiting. Endocrine: Negative for cold intolerance and heat intolerance. Genitourinary: Positive for dyspareunia and pelvic pain. Negative for decreased urine volume, difficulty urinating, dysuria, enuresis, flank pain, frequency, genital sores, hematuria, menstrual problem, urgency, vaginal bleeding, vaginal discharge and vaginal pain. Skin: Negative for color change and rash. Neurological: Negative for facial asymmetry and speech difficulty. Hematological: Negative for adenopathy. Does not bruise/bleed easily. Psychiatric/Behavioral: Negative for agitation, behavioral problems, confusion, decreased concentration, self-injury, sleep disturbance and suicidal ideas. MANUFACTURE SPECIALIST History: Period Pattern: (!) Irregular Menstrual Flow: Heavy Menstrual Control: Maxi pad Dysmenorrhea: (!) Severe Dysmenorrhea Symptoms: Cramping, Diarrhea, Other (Comment) Past Medical History: Diagnosis Date Endometriosis IC (interstitial cystitis) PCOS (polycystic ovarian syndrome) Past Surgical History: Procedure Laterality Date LAPAROSCOPY 12/26/2019 EOE; stage 1 TONSILLECTOMY 2007 WISDOM TOOTH EXTRACTION 2014 Family History Problem Relation Age of Onset Hypertension Maternal Grandmother Hypertension Maternal Grandfather Hypertension Mother Social History Socioeconomic History Marital status: Single Spouse name: Not on file Number of children: 0 Years of education: Not on file Highest education level: Not on file Occupational History Not on file Tobacco Use Smoking status: Never Smoker Smokeless tobacco: Never Used Vaping Use Vaping Use: Never used Substance and Sexual Activity Alcohol use: Not on file Drug use: Not on file Sexual activity: Not on file Other Topics Concern Not on file Social History Narrative Not on file Social Determinants of Health Financial Resource Strain: Difficulty of Paying Living Expenses: Not on file Food Insecurity: Worried About Running Out of Food in the Last Year: Not on file Ran Out of Food in the Last Year: Not on file Transportation Needs: Lack of Transportation (Medical): Not on file Lack of Transportation (Non-Medical): Not on file Physical Activity: Days of Exercise per Week: Not on file Minutes of Exercise per Session: Not on file Stress: Feeling of Stress : Not on file Social Connections: Frequency of Communication with Friends and Family: Not on file Frequency of Social Gatherings with Friends and Family: Not on file Attends Latter-Day Services: Not on file Active Member of Clubs or Organizations: Not on file Attends Club or Organization Meetings: Not on file Marital Status: Not on file Housing Stability: Unable to Pay for Housing in the Last Year: Not on file Number of Places Lived in the Last Year: Not on file Unstable Housing in the Last Year: Not on file OBJECTIVE: Vitals: 02/12/21 1042 BP: (!) 140/68 Temp: 97.7 F (36.5 C) Weight: 55.3 kg (122 lb) There is no height or weight on file to calculate BMI. Physical Examination: Physical Exam Constitutional: Appearance: Normal appearance. She is well-developed. Interventions: Face mask in place. Genitourinary: Urethra normal. Genitourinary Comments: Narrow vaginal opening Vaginal discharge present. Uterus is tender. Bladder is tender. Pelvic exam was performed with patient in the lithotomy position. HENT: Head: Normocephalic and atraumatic. Cardiovascular: Rate and Rhythm: Normal rate and regular rhythm. Pulmonary: Effort: Pulmonary effort is normal. Abdominal: Palpations: Abdomen is soft. Musculoskeletal: Cervical back: Normal range of motion and neck supple. Neurological: Mental Status: She is alert and oriented to person, place, and time. Skin: General: Skin is warm and dry. Psychiatric: Mood and Affect: Mood and affect normal. Behavior: Behavior normal. Thought Content: Thought content normal. Judgment: Judgment normal. Vitals and nursing note reviewed. Exam conducted with a java technical manager present. ASSESSMENT/PLAN: Sinai Tanner is a 26 y.o. female who presents for: Problem List Items Addressed This Visit Endometriosis Pelvic exam performed: Vaginal opening is narrow. Presacral neurectomy options discussed. Discussed multiple etiologies of pelvic pain including MANUFACTURE SPECIALIST vs vs GI vs MSK. IC symptomology discussed. Food triggers with elimination diet discussed. Medication options including Elmiron as well as amitriptyline with hydroxyzine discussed. Advised on dietary and lifestyle changes, bladder triggers, use of Elmiron, outpatient bladder instillations and intraoperative cystoscopy with hydrodistention. Water soluble fiber supplementation discussed. Discussed Metamucil and Benefiber options. Pt counseled these can act as stool bulking agents to better manage any bowel symptoms. Use as directed, in the morning followed by an extra glass of water. Pelvic floor therapy options discussed. Patient has undergone pelvic floor therapy secondary to recommendation. She did not feel like it was very successful. Pudendal neuralgia symptomology discussed. Gabapentin options discussed. Adenomyosis symptomology discussed. Advised on the benefit of hysterectomy in the situation. Discussed difficulty of evaluating whether hysterectomy would be beneficial for her. Advised on performing a paracervical block to see whether she gets relief from treating the uterus with anesthetic. The patient will sign a release of records to have outside records forwarded for review. Discussed referral to PM&R physician for further evaluation of pain radiating down her leg. Discussed referral to chronic pain specialist for further management. Rx written for Zanaflex for continued pain management. Rx written for gabapentin to manage nerve pain. Interstitial cystitis Pelvic pain in female Other Visit Diagnoses Vaginal discharge Relevant Orders Vaginitis DNA Probes (Completed) Return if symptoms worsen or fail to improve, for Paracervical block injection. Geovanna Ureña MA, acted as scribe on behalf of Dr. Presley Baca and accurately documented clinical information at the direction of the physician contemporaneously, while she performed the patient's clinical service. 02/12/21 10:51 AM documented in this [email or web address] + Plan note Future Appointments Appointment Date:11/20/2021 09:30:00 AM Scheduled Provider:Pao Macedo MD Location:[facility] Appointment Type:URO New Patient Referrals to Other Providers Referred by: PORTIA GOLDEN CNP [facility] [place] Evaluation + Plan note Future Appointments Appointment Date:11/25/2021 02:30:00 PM Scheduled Provider: Location:[facility] Appointment Type:Surgical PAT FT Appointment Date:12/02/2021 08:30:00 AM Scheduled Provider: Location:[facility] Appointment Type:Surgery FT [facility] Evaluation + Plan note Future Appointments Appointment Date:12/02/2021 08:30:00 AM Scheduled Provider: Location:[facility] App[facility]ments Appointment Date:03/05/2022 03:00:00 PM Scheduled Provider:Pao Macedo MD Location:[facility] Appointment Type:URO Office Visit Future Scheduled Tests Radiology* CT Abdomen/Pelvis w/ Contrast 01/09/22 [facility] [place] Evaluation + Plan note Future Appointments Appointment Date:03/04/2022 07:30:00 AM Scheduled Provider: Location[facility] Appointment Type:PT Pelvic Floor/UI (FT) Appointment Date:03/05/2022 03:00:00 PM Scheduled Provider:Pao Macedo MD Location:[facility] Appointment Type:URO Office Visit Appointment Date:03/11/2022 03:30:00 PM Scheduled Provider: Location[place] Appointment Type:PT Pelvic Floor/UI (FT) Appointment Date:03/17/2022 03:30:00 PM Scheduled Provider: Location[place] Appointment Type:PT Pelvic Floor/UI (FT) Appointment Date:03/25/2022 07:30:00 AM Scheduled Provider: Location[place] Appointment Type:PT Pelvic Floor/UI Re-Eval (FT) Appointment Date:04/01/2022 07:00:00 AM Scheduled Provider: [place] Appointment Type:PT Pelvic Floor/UI (FT) Appointment Date:04/10/2022 07:15:00 AM Scheduled Provider: [place] Appointment Type:PT Pelvic Floor/UI (FT) Appointment Date:04/17/2022 03:15:00 PM Scheduled Provider: Location[place] Appointment Type:PT Pelvic Floor/UI Re-Eval (FT) Future Scheduled Tests Laboratory* Basic Metabolic Panel 01/12/22 * CBC w/ Auto Diff [facility] App[facility]ments Appointment Date:03/11/2022 03:30:00 PM Scheduled Provider: Location[place] Appointment Type:PT Pelvic Floor/UI (FT) Appointment Date:03/17/2022 03:30:00 PM Scheduled Provider: [place] Appointment Type:PT Pelvic Floor/UI (FT) Appointment Date:03/25/2022 07:30:00 AM Scheduled Provider: Location[place] Appointment Type:PT Pelvic Floor/UI Re-Eval (FT) Appointment Date:04/01/2022 07:00:00 AM Scheduled Provider: [place] Appointment Type:PT Pelvic Floor/UI (FT) Appointment Date:04/10/2022 07:15:00 AM Scheduled Provider: [place] Appointment Type:PT Pelvic Floor/UI (FT) Appointment Date:04/17/2022 03:15:00 PM Scheduled Provider: Location[place] Appointment Type:PT Pelvic Floor/UI Re-Eval (FT) Appointment Date:04/27/2022 02:45:00 PM Scheduled Provider:Pao Macedo MD Location:[facility] Appointment Type:URO Office Visit Future Scheduled Tests Laboratory* Basic Metabolic Panel 01/12/22 * CBC w/ Auto Diff 01/12/22 [facility] Evaluation + Plan note Future Appointments Appointment Date:06/01/2022 02:45:00 PM Scheduled Provider:Pao Macedo MD Location:[facility] Appointment Type:URO Office Visit Future Scheduled Tests Laboratory* Basic Metabolic Panel 01/12/22 * CBC w/ Auto Diff 01/12/22 [facility] evaluation + Plan note Future Appointments Appointment Date:06/15/2022 12:45:00 PM Scheduled Provider:Pao Macedo MD Location:[facility] Appointment Type:URO Office Visit Future Scheduled Tests Laboratory* Basic Metabolic Panel 01/12/22 * CBC w/ Auto Diff 01/12/22 [facility] [place] Evaluation + Plan note Future Appointments Appointment Date:07/27/2022 03:15:00 PM Scheduled Provider:Pao Macedo MD Location:[facility] Appointment Type:URO Office Visit Future Scheduled Tests Laboratory* Basic Metabolic Panel 01/12/22 * CBC w/ Auto Diff 01/12/22 [facility] Evaluation + Plan note Future Appointments Appointment Date:08/17/2022 07:30:00 AM Scheduled Provider: Location:.[facility] Appointment Type:US Abdominal/Pelvis (FT) Appointment Date:09/28/2022 02:45:00 PM Scheduled Provider:Pao Macedo MD Location:[facility] Appointment Type:URO Office Visit Future Scheduled Tests Laboratory* Basic Metabolic Panel 01/12/22 * CBC w/ Auto Diff 01/12/22 Radiology* US Renal 08/17/22 [facility] evaluation + Plan note Future Appointments Appointment Date:08/17/2022 07:30:00 AM Scheduled Provider: Location:.[facility] Appointment Type:US Abdominal/Pelvis () Appointment Date:09/28/2022 02:45:00 PM Scheduled Provider:Pao Macedo MD Location:[facility] Appointment Type:URO Office Visit Diagnostic Tests Pending * Urine Culture 08/14/22 Future Scheduled Tests Laboratory* Basic Metabolic Panel 01/12/22 * CBC w/ Auto Diff 01/12/22 Radiology* US Renal [facility] Appointment Date:09/28/2022 02:45:00 PM Scheduled Provider:Pao Macedo MD Location:[facility] Appointment Type:URO Office Visit Future Scheduled Tests Laboratory* Basic Metabolic Panel 01/12/22 * CBC w/ Auto Diff [facility]12/22 [facility] App[facility]ments Appointment Date:10/05/2022 10:45:00 AM Scheduled Provider: Location:[facility] Appointment Type:Urology CALL PAT FT Appointment Date:10/12/2022 09:30:00 AM Scheduled Provider: Location:[facility] Appointment Type:Urology FT Future Scheduled Tests Laboratory* Basic Metabolic Panel 01/12/22 * CBC w/ Auto Diff 01/12/22 [facility] Evaluation + Plan note Future Appointments Appointment Date:10/26/2022 02:45:00 PM Scheduled Provider:Pao Macedo MD Location:[facility] Appointment Type:URO Office Visit Future Scheduled Tests Laboratory* Basic Metabolic Panel 01/12/22 * CBC w/ Auto Diff 01/12/22 [facility] App[facility]ments Appointment Date:07/27/2024 03:00:00 PM Scheduled Provider:Pao Macedo MD Location:[facility] Appointment Type:URO Office Visit Diagnostic Tests Pending * Chlamydia/Gonococcus, MAVERICK 05/19/24 [facility] evaluation + Plan note Future Appointments Appointment Date:07/27/2024 03:00:00 PM Scheduled Provider:Pao Macedo MD Location:[facility] Appointment Type:URO Office Visit [facility] Evaluation + Plan note Future Appointments Appointment Date:07/27/2024 03:00:00 PM Scheduled Provider:Pao Macedo MD Location:[facility] Appointment Type:URO Office Visit Diagnostic Tests Pending * Vaginitis/Vaginosis, DNA Probe 06/27/24 * Urine Culture 06/27/24 [facility] Evaluation + Plan note Future Appointments Appointment Date:09/05/2024 02:00:00 PM Scheduled Provider: Location:[facility] Appointment Type:Surgery [facility] evaluation + Plan note Future Appointments Appointment Date:11/13/2024 03:00:00 PM Scheduled Provider:Pao Macedo MD Location:[facility] Appointment Type:URO Office Visit [facility] evaluation + Plan note Future Appointments Appointment Date:09/22/2024 12:40:00 PM Scheduled Provider:IVET LAWLER Location:[facility] Appointment Type: ER/Hospital Follow Up Appointment Date:11/13/2024 03:00:00 PM Scheduled Provider:Pao Macedo MD Location:[facility] Appointment Type:URO Office Visit [facility] evaluation + Plan note Future Appointments Appointment Date:10/12/2024 10:00:00 AM Scheduled Provider[facility] Bilateral Lower Extremity Appointment Date:11/13/2024 03:00:00 PM Scheduled Provider:Pao Macedo MD Location:[facility] Appointment Type:URO Office Visit [facility] evaluation + Plan note Future Appointments Appointment Date:10/20/2024 11:15:00 AM Scheduled Provider:Pao Macedo MD Location:[facility] Appointment Type:URO Office Visit Appointment Date:11/13/2024 03:00:00 PM Scheduled Provider:Pao Macedo MD Location:[facility] Appointment Type:URO Office Visit Future Scheduled Tests Radiology* MRI Pelvis (Soft Tissue) w/ + w/o contrast 10/19/24 * MRI Spine Lumbar w/ + w/o Contrast 10/19/24 [facility] evaluation + Plan note Future Appointments Appointment Date:11/09/2024 09:00:00 AM Scheduled Provider: Location:[facility] Appointment Type:URO Nurse Visit Appointment Date:01/25/2025 03:00:00 PM Scheduled Provider:Pao Macedo MD Location:[facility] Appointment Type:URO Office Visit [facility] evaluation + Plan note Future Appointments Appointment Date:01/25/2025 03:00:00 PM Scheduled Provider:Pao Macedo MD Location:[facility] Appointment Type:URO Office Visit [facility] [place] evaluation note* Diagnosis Endometriosis Endometriosis, site unspecified Pelvic pain in female Unspecified symptom associated with female genital organs Interstitial cystitis Chronic interstitial cystitis Vaginal discharge Leukorrhea, not specified as infective [facility] Diagnosis Pelvic pain in female- Primary Unspecified symptom associated with female genital organs [facility] Diagnosis Pelvic pain in female Unspecified symptom associated with female genital organs [facility] Diagnosis Endometriosis- Primary Endometriosis, site unspecified Pelvic pain in female Unspecified symptom associated with female genital organs Dysmenorrhea Female pelvic congestion syndrome [facility] Diagnosis Dysmenorrhea Female pelvic congestion syndrome Endometriosis Endometriosis, site unspecified Pelvic pain in female Unspecified symptom associated with female genital organs Pelvic pain in female- Primary Unspecified symptom associated with female genital organs Endometriosis Endometriosis, site unspecified Pelvic pain in female Unspecified symptom associated with female genital organs Dysmenorrhea Female pelvic congestion syndrome [facility]* Diagnosis Postop check- Primary Follow-up examination, following unspecified surgery Endometriosis Endometriosis, site unspecified Pelvic pain in female Unspecified symptom associated with female genital organs Dysmenorrhea Female pelvic congestion syndrome Interstitial cystitis Chronic interstitial cystitis [facility]* Diagnosis Interstitial cystitis Chronic interstitial cystitis documented in [facility]* Diagnosis Pelvic pain in female Unspecified symptom associated with female genital organs documented [facility]* Diagnosis Vaginal discharge Leukorrhea, not specified as infective Bacterial infection due to mycoplasma [facility] Diagnosis Well woman exam with routine gynecological exam Routine gynecological examination Vaginal discharge Leukorrhea, not specified as infective STD exposure [facility] Vaginal symptom- Primary Vaginal discharge Leukorrhea, not specified as infective [facility] Diagnosis Bacterial vaginosis Unspecified vaginitis and vulvovaginitis [facility] Diagnosis White matter abnormality on MRI of brain- Primary Nonspecific (abnormal) findings on radiological and other examination of skull and head Urinary retention Retention of urine, unspecified Migraine with aura and without status migrainosus, not intractable Migraine with aura, without mention of intractable migraine without mention of status migrainosus Neuropathic pain Neuralgia, neuritis, and radiculitis, unspecified [facility] Diagnosis Neurogenic bladder- Primary Neurogenic bladder, NOS Screening for genitourinary condition Screening for other and unspecified genitourinary condition Endometriosis Endometriosis, site unspecified Retention of urine Retention of urine, unspecified High-tone pelvic floor dysfunction in female Dyspareunia in female White matter abnormality on MRI of brain Nonspecific (abnormal) findings on radiological and other examination of skull and head [facility]* Diagnosis Neurogenic bladder- Primary Neurogenic bladder, NOS White matter abnormality on MRI of brain Nonspecific (abnormal) findings on radiological and other examination of skull and head [facility] Diagnosis Urinary retention- Primary Retention of urine, unspecified [facility] Diagnosis White matter abnormality on MRI of brain- Primary Nonspecific (abnormal) findings on radiological and other examination of skull and head Neuropathic pain Neuralgia, neuritis, and radiculitis, unspecified Urinary retention Retention of urine, unspecified Migraine with aura and without status migrainosus, not intractable Migraine with aura, without mention of intractable migraine without mention of status migrainosus Migraine without aura and without status migrainosus, not intractable Migraine without aura, without mention of intractable migraine without mention of status migrainosus [facility] Diagnosis Urinary retention- Primary Retention of urine, unspecified Urinary retention Retention of urine, unspecified [facility] Diagnosis Vaginal pain- Primary Unspecified symptom associated with female genital organs Pelvic pain in female Unspecified symptom associated with female genital organs Urinary retention Retention of urine, unspecified [facility] Diagnosis Urinary retention- Primary Retention of urine, unspecified Preop testing Preoperative examination, unspecified Urinary retention Retention of urine, unspecified Urinary retention Retention of urine, unspecified [facility] Diagnosis Urinary retention- Primary Retention of urine, unspecified Urinary retention Retention of urine, unspecified Urinary retention Retention of urine, unspecified [facility] Diagnosis Retention of urine- Primary Retention of urine, unspecified Suprapubic catheter (HCC) Other cystostomy status Urinary retention Retention of urine, unspecified Urinary retention Retention of urine, unspecified Urinary retention Retention of urine, unspecified [facility] Diagnosis Acute cystitis without hematuria- Primary Acute cystitis Urinary retention Retention of urine, unspecified Urinary retention Retention of urine, unspecified [facility]* Diagnosis Neurogenic bladder- Primary Neurogenic bladder, NOS Urinary retention Retention of urine, unspecified Urinary retention Retention of urine, unspecified documented in this encounter [facility] [place] Narrative No data available for this section [facility] [place] [facility] Discharge instructions No data [facility] for this [facility] data available for this section [facility] [place] Summary Purpose Family History No Family History Records FoundNo Family History Records FoundNo Family History Records FoundNo Family History Records FoundNo Family History Records FoundNo Family History Records FoundNo Family History Records FoundNo Family History Records Found No data available for this section No data available for this section No data available for this section No data available for this section No data available for this section No data available for this section No data available for this section No data available for this section No data available for this section No data available for this section No data available for this section No data available for this section No data available for this section No data available for this section No data available for this section No Family History Records FoundNo Family History Records FoundNo Family History Records Found No data available for this section No data available for this section No Family History Records Found No data available for this section No Family History Records FoundNo Family History Records FoundNo Family History Records FoundNo Family History Records FoundNo Family History Records FoundNo Family History Records Found No data available for this section No data available for this section No data available for this section No Family History Records FoundNo Family History Records FoundNo Family History Records FoundNo Family History Records FoundNo Family History Records FoundNo Family History Records Found No data available for this section No Family History Records FoundNo Family History Records Found No data available for this section No data available for this section No data available for this section No data available for this section No Family History Records FoundNo Family History Records FoundNo Family History Records Found No data available for this section No Family History Records Found No data available for this section No Family History Records FoundNo Family History Records FoundNo Family History Records FoundNo Family History Records FoundNo Family History Records FoundNo Family History Records FoundNo Family History Records FoundNo Family History Records Found No data available for this section No Family History Records Found No data available for this section No Family History Records FoundNo Family History Records FoundNo Family History Records Found No data available for this section No Family History Records Found No data available for this section No Family History Records Found No data available for this section No Family History Records FoundNo Family History Records FoundNo Family History Records Found Advance Directives No Advanced Directives Records FoundDocuments on File Type Date Recorded Patient Medical Technician Expl anation Advance Directives and Living Will Power of Medical And Scientific Illustrator Documents on File Type Date Recorded Patient Medical Technician Expl anation ACP-Advance Directive ACP-Power of Medical And Scientific Illustrator Documents on File Type Date Recorded Patient Medical Technician Expl anation ACP-Advance Directive ACP-Power of Medical And Scientific Illustrator Documents on File Type Date Recorded Patient Medical Technician Expl anation Advance Directives and Living Will Documents on File Type Date Recorded Patient Medical Technician Expl anation Advance Directives and Livin g Will 05/13/2021 9:52 AM Documents on File Type Date Recorded Patient Medical Technician Expl anation Advance Directives and Livin g Will 05/16/2021 5:12 AM Latest Code Status on File Code Status Date Activated Date Inactivated Comments Full Code 05/16/2021 5:37 AM 05/16/2021 12:22 PM Documents on File Type Date Recorded Patient Medical Technician Expl anation Advance Directives and Livin g Will 06/24/2021 10:38 AM Discharge Instructions * Instructions* Berlin Wu MD - 04/05/2019 Please take all medications as prescribed. Please follow up with your primary care physician by calling today, or as soon as possible, for thefirst available appointment. If you do not have a primary care physician, please contact a physician or clinic listed below today to establish care. Please return to the emergency department IMMEDIATELY if you develop uncontrolled fevers, uncontrolled vomiting, change in symptoms, worsening of symptoms, or ANY other concerns. * Attachments The following attachments cannot be sent through Care Everywhere. * UTI (Urinary Tract Infection): Female (Panamanian) documented in this encounter* Instructions* Shannan Reynoso PA-C - 04/07/2019 Call to arrange follow-up with primary care for repeat check within 48 hours. If you go home and develop a fever if your pain worsens do not hesitate to return the emergency room. * Attachments The following attachments cannot be sent through Care Everywhere. * UTI (Urinary Tract Infection): Female (Panamanian) documented in this encounter* Instructions* El Davis DO - 04/16/2019 Please follow-up with urology to discuss further diagnostic treatment cyst and symptoms and for definitive diagnosis of interstitial cystitis * Attachments The following attachments cannot be sent through Care Everywhere. * Interstitial Cystitis (Panamanian) documented in this encounter* Instructions* Dianne Crespo DO - 07/24/2020 POSTOPERATIVE PATIENT INSTRUCTIONS MAJOR & MINOR SURGICAL PROCEDURES Congratulations! You have taken the brave step of undergoing a surgery in order to try to improve your health. Now it is time to focus on healing outside of the hospital / surgery center setting. To make your dismissal as successful as possible, it is recommended that you thoroughly review these postoperative instructions. These instructions pertain to, but are not limited to the following procedures: MAJOR ; Hysterectomy Vaginal / Laparoscopic / Robotic ; With or Without tube-ovarian Removal (Salpingo-oophorectomy) ; Sacrocolpopexy / Sacroperineopexy / Sacrocervicopexy (Lifting the vagina / cervix to the sacrum) ; Major Vaginal Prolapse repairs ; Cystocele repair (Anterior Colporrhaphy) ; Rectocele repair (Posterior Colporrhaphy) ; Enterocele repair ; Vaginal vault repair ; Closing or removal of the vagina (Colpocleisis / Colpectomy) ; Major urinary incontinence surgery ([place] Urethropexy, MMK) ; Major fibroid removal (Myomectomy) ; Major tubal surgery (re-anastomosis, ectopic , pelvic inflammatory disease) ; Major surgery for adhesions or endometriosis involving bowel ; Major vaginal mesh removal ; Fistula repair of the bladder or colorectum to the vagina ; Creation of a new vagina (Neovaginoplasty) or repair of a Mullerian Anomaly ; Other MINOR ; Hysteroscopy with Dilatation / Curettage, Endometrial Ablation ; Laparoscopy With or Without minor tubal or ovarian surgery ; Minor Vaginal Prolapse repairs ; Cystocele repair (Anterior Colporrhaphy) ; Rectocele repair (Posterior Colporrhaphy) ; Urethrocele repair ; Minor urinary incontinence surgery (Slings, Transurethral Bulking) ; Minor vaginal surgery (Mesh removal, Laser ablation, Biopsies, Labial revisions, Injections) ; Minor surgery of the bladder (DMSO, Hydrodistention, Botox, etc.) ; Other 1 POST OPERATIVE BASIC INSTRUCTIONS The office will call on the Wednesday, or within 1 week, after your surgery to make sure you are doingwell and to answer questions. 1. Your 1st post-op visit will occur within 1-2 weeks after your surgery. 2. Your final post-op visit will occur @ 4-6 weeks depending on the surgery & your desire to return to work. 3. Your surgery and recovery may require more visits in between the 1st and final visits. DO S, DONT S, & WHEN TO CALL As reviewed with you on the morning of your discharge, for the 1st week out of surgery below is a QUICK list of DO s, DONT s, and WHEN TO CALL: 5 THINGS YOU MAY DO 5 THINGS YOU MAY NOT DO FOR 4-6 WEEKS -Shower with Ivory Soap and water -Tub bathe, hot tub, or swim -Gradually increase walking -Heavy lifting > 15lbs (2 gallons worth) -Go up and down stairs slowly -Insert anything into the vagina (sex, douching, tampons) -Drive a car / motorcycle (*See -Light housecleaning (dusting, dishwashing) Special Considerations) -Short local travel (restaurant, rastafarian) -Long distance travel > 1.5 hours (*See Special Considerations) 5 SYMPTOMS TO CALL FOR: -Sustained fever >100.4 despite Tylenol or a cold shower, especially associated with redness of incision/s -Pain out of the ordinary (>7) despite pain meds / anti-inflammatories -Heavy vaginal bleeding > 1 pad / hour with large red clots -Inability to eliminate urine (especially if catheterized) or flatus / stool (with sustained distention & nausea) -Calf pain or extreme shortness of breath QUESTIONS, CONCERNS, EMERGENCIES * Please call the office with any questions or concerns at [phone]. * If during office hours, your issue may require an appointment. If after hours, the answering service will connect you with the physician Marketing Production Coordinator. * If you are concerned that your issue may be emergent, PLEASE CALL FIRST. ; Many issues may be resolved over the phone and avoid an unnecessary and expensive ER visit. ; If you truly have an emergency related to the surgery and call first: *You will be directed to the hospital ER in which you had your surgery. [facility] primarily or [facility] rarely. [facility] patients may be asked to report to [facility] if Dr. Camarillo s on-call partner is assuming responsibility. ; Calling first helps to expedite your care and avoids an unnecessary and expensive ambulance transfer to [facility]. Dial 911 or go to your closest ER if your emergency is related to a potential heart attack or stroke. 2 DISCHARGE MEDICINES * [place] 325/5mg tablets or alternative narcotic. Take 1-2 tablets by mouth every 4-6 hours as needed for pain. - Per [facility] Board of Pharmacy laws, only 1 week of narcotics may be prescribed at a time. - Do not take extra Tylenol (Acetaminophen) orally as [place] already contains the medicine. - May take 500mg orally every 4-6 hours if off of [place]. * Ibuprofen 400-800mg is safe to take. Take 1 tablet by mouth every 8 hours for inflammation. * Senokot S. Take two tablets by mouth every night to prevent constipation. Stop if loose stools occur. * If an antibiotic is required: Keflex 250-500mg take 1 tablet by mouth 3x / day as prescribed OR Cipro 250-500mg take 1 tablet by mouth 2x / day as prescribed * Other medicines or antibiotics may be prescribed based on your postoperative course or situation. *You may resume taking any medications you were taking before your surgery, unless told otherwise. DUE TO BLEEDING RISK, DO NOT RESUME HOME ANTICOAGULANTS UNLESS DISCUSSED SPECIAL CONSIDERATIONS After surgery, give yourself a chance to adjust and recover. Some patients feel fine within a month. Many need a little extra time. Do not be concerned if you feel fatigued for the first month, your body is recovering. It may take several weeks for you to get your energy back. Even if energy has returned, please do not be tempted to re-engage in strenuous activity. Although mild weight gain is not uncommon, most of it is IV fluid weight that your body will remove with time. 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 Once you have fully recovered, you may focus on enjoying your life. Keep in mind, you will continue to heal for 6-12 months after surgery, so use common sense to protect your surgery (avoid repetitive heavy lifting, constipation, chronic pelvic strain.) In particular, if you had a hysterectomy, you may have both physical and emotional effects that maybe brief or nursing home. After hysterectomy, periods will stop and a woman can no longer achieve . Despite popular myth, post-hysterectomy weight gain is not due to the hysterectomy, but is usually a result of other factors. A depressive emotional reaction to loss of the uterus is not uncommon or abnormal. Please discuss any concerns with your health care provider if persistent. Sexual response may change after hysterectomy. There are no definitive studies showing decreased orgasmic potential post-hysterectomy. Some women have a heightened response due to correcting painful pathology. O varian removal may decrease estrogenization, leading to vaginal dryness and menopausal hot flashes.Hormonal therapy may need to be discussed. SOME SURGERIES HAVE SPECIAL CONSIDERATIONS MAJOR * For all major surgeries listed above, you may drive after your 1week post-op visit if cleared, have discontinued narcotic pain meds, and are able to depress the brake quickly without pain. Long distance travel may be resumed in 4 weeks if stable. * With major robotic hysterectomy, you should refrain from intercourse for 8 weeks, other hysterectomies 6 weeks. MINOR * Minor surgeries may drive next day any distance if off narcotic pain meds and are able to brake safely. * For minor vaginal surgeries for prolapse and / or urinary incontinence procedures, maintain pelvic rest for 4 weeks. Exercise and work may be resumed within 2-4 weeks depending on healing. * For minor surgeries of the vagina, uterus, and bladder, hysteroscopy, D&C, and laparoscopy, maintain pelvic rest for 1-2 weeks depending on healing. Exercise and work may be resumed within the week. 3 CONSENT ITEMS REVISITED IN THE POST OPERATIVE PERIOD 1. Physical and sexual activity will be restricted in varying degrees for an indeterminate period of time, but most often 2-8 weeks depending on the breadth of surgery. It is impossible to list everyundesirable effect and that the condition for which surgery is done is not always cured or significantly improved, and in rare cases may even worsen. 2. There is no 100% guarantee that the planned surgery, despite everything being done correctly andto the medico-surgical standard with resolve a condition 100% including but not limited to pain, urinary infections, bladder function, or defecatory dysfunction. Specifically, up to 20% of patients with abdominopelvic pain, 27% of those with UTI's, 16-26% with urinary incontinence or voiding dysfunction, and 40% with defecatory dysfunction may not see substantial long lasting improvement from a surgical intervention. 3. Dangerous blood clots in the legs or lungs may occur post-operatively. Patients on chronic bloodthinners, particularly those without antidote, may be at significant risk of bleeding, hemorrhage, hematoma formation, need for transfusion, and over the regular population. Life-threatening bleeding complications may even occur up to 4 weeks out of surgery even if anticoagulation is managed appropriately. If the patient has been taken off anticoagulation because of bleeding, this could expose her to life-threatening blood clots in the legs or lungs, DE, or stroke. 4. Elderly patients over the age of 70 may experience up to a 2% mortality rate in the postsurgicalperiod related to comorbidities and declining health. A living will and is recommended to be reviewed. 5. For major outpatient procedures requiring less than a 24 hour stay, you will be dismissed from the hospital or surgery setting when stable and meets criteria for discharge. Less than 5% of patients may rebound to an emergency setting for some of the risks mentioned above even though they have met criteria for dismissal earlier. Outpatient surgical recovery usually occurs between 2 and 4 weeks.For major inpatient procedures requiring an average 1-3 day hospital stay, and the patient may not be fully recovered from major surgery for up to 6-8 weeks. Please understand with Medicare and insurance reform, only 1 night will be approved for most reconstructive or robotic procedures. In regards to reconstructive pelvic and incontinence surgery: 1. Approximately 85% of patients experience a reasonable improvement >5 years in pelvic support and urinary/fecal incontinence, as well as urinary infections, after the procedure. There is a long-term risk of recurrent prolapse in up to 30% of women who have undergone reconstructive surgery if healthy lifestyle behaviors are not maintained. This includes but is not limited to smoking cessation, weight loss in the obese, reduction in heavy lifting, exercise, fall prevention, and bowel regularity. Reconstructive pelvic and/or urinary/fecal incontinence surgeries may only improve your condition/s mildly and may not completely resolve problems including but not limited to urinary tract infect ions and/or defecatory dysfunction. 17% of patients may still get a urinary tract infection and 40-60% of patients may still experience constipation postoperatively. 2. It may be hard to urinate for a few days or weeks. Sometimes, up to 40% of women cannot urinate efficiently after surgery due to swelling, anesthesia, or pain. Prolonged urinary retention may rarely occur after an incontinence or pelvic prolapse surgery and is more likely if retention predates surgery or includes factors that are not limited to neuropathy, diabetes mellitus, or prior pelvic surgery. The patient may need a catheter to drain the bladder for 1-2 weeks on average. Patients in Dr. Camarillo's practice most often prefer a transurethral Ortiz. Other choices are a suprapubic catheter or intermittent self-catheterization. The patient has been given instructions on how to manage the type of catheter chosen, which will be reiterated postoperatively. Despite evidence indicating no need for antibiotics with a catheter, real world experience shows a 20-40% rate of UTI with a Ortiz catheter which depending on personal risk factors and extent of surgery, may require a prophylactic anti biotic afterwards. Antibiotics have risks of resistance, diarrhea and C. difficile infection. Suprapubic catheters carry a risk of urinoma, bowel injury, and bleeding and have a UTI risk of 15-20%. Intermittent self-catheterization carries an 11% risk of a UTI. In regards to labial or perineal reconstructive surgery: 1. You should expect some bruising and mild swelling with related discomfort following these surgeries that lasts 1-2 weeks. Ice packs and sitz baths may be utilized after surgery to help minimize swelling and discomfort. Mild analgesics are also used. Final optimal results can usually be appreciated in several months. Most patients may return to work or school within a week after surgery; however, strenuous activity or tight clothing is discouraged and patients must refrain from sexual intercourse for 4-6 weeks after surgery. 2. You may receive a topical antibiotic, which reduces risk of infection. Mild bleeding is not uncommon and can occur postoperatively if strenuous activity or intercourse is begun too early. Problemswith healing, such as incision separation, suture popping, scarring, and/or pain following the surgery are rare but can happen. 4 SPECIAL INSTRUCTIONS IF MRSA POSITIVE * Continue Bactroban to the nares 2x / day for 2 weeks post-operatively. Since many people are colonized in the community, it is not something we will routinely culture for post-operatively. TO PREVENT BLOOD CLOTS IN THE LEGS OR LUNGS / PNEUMONIA IN THE LUNGS * Regular walking or calf stretches and wearing a supportive hose may help prevent clots in the legs or lungs. * If interested, home pneumatic cuffs are available for purchase through the office if you wish to continue these at home. * Take home your incentive spirometer and utilize it as instructed to prevent pneumonia. * Smoking cessation before and after surgery is strongly encouraged. VAGINAL BLEEDING & DISCHARGE * You will likely experience light bleeding with the potential for small dime size clots, lasting 2-3 weeks after your surgery. This should not be construed as heavy bleeding. * You may notice an increase in vaginal discharge 4-6 weeks after your surgery, which may be watery, yellowish, or pinkish. It may have more of an acidic odor. This is common as the vagina flushes out edematous body fluid and dissolves the absorbable sutures. * As the healing process progresses, you may experience mild itching within the vagina, as well as outside the vaginal opening. If this itching become severe, and/or is accompanied by a foul smell and swelling, please call the office. DRAINS & WOUND CARE * If a drain or specific wound care appliance is present at the time of dismissal, please follow additional instructions that may be provided regarding maintenance of the device/s. * Basic daily maintenance of a drain is as follows: - You may wash around the drain site with warm, soapy water and pat dry with a towel. - If indicated, use a topical antibiotic around the drain site 2x / day. - Strip or milk the drain from the drain site to the bulb suction 3x / day. This clears any blockage from the drain. Simply pinch the drain at its insertion site into your body between your thumb and forefinger. Thensqueeze and pull the drainage tubing as you move towards the drain bulb, allowing the tube to slidebetween your fingers with mild resistance, you should see a suction effect within the drain tube that moves fluid toward the bulb. * Please call the office immediately if the drain falls out or cannot maintain suction. * Please call if redness of the drain site increases and is associated with fever, pain, or purulent discharge. CONSTIPATION * Patients are often constipated after a prolonged period of bed rest, or with the use of oral narcotic pain medications. If you have not had a bowel movement for 3 days after you are dismissed from the hospital, or are uncomfortable and unable to pass stool, please try one or all of the following measures in a stepwise manner: 1. Eat fruits, vegetables, prunes & whole-grain foods. Drink 8 glasses of fluid daily. Add PlumSmart juice. 2. Metamucil, FiberCon, or other bulking medication - use as directed 3. Milk of magnesia - 30 mL s by mouth every 12 hours 4. Dulcolax suppository - 1 suppository per rectum every 4-6 hours 5. Fleets enema use as directed unless told nothing per rectum (colorectal fistula repair) BLADDER DRAINAGE There is a >70% chance you will void on your own post-operatively. In particular to reconstructive and incontinence surgeries (whether you had incontinence before surgery or not), sometimes surgical effects of normal swelling and new positioning of the bladder may be associated with some mild tomoderate postoperative urinary leakage. Often this leakage is urge related. As discussed pre-operatively, up to 26% of patients with prolapse and negative urodynamic testing may develop de burt incontinence afterwards. Please do not be frustrated if temporary incontinence occurs for it will most likely improve as you continue to heal. Leakage rarely persists long-term, there are many options for treatment, and Dr. Camarillo and his office staff are there to help you every step of the way. 5 [facility] The patient, (name), has been discharged from the hospital / surgery center on (date) from her operation. The patient has been given the appropriate postoperative instructions and they have been reviewed thoroughly with the patient and her family as necessary. The patient voices understanding and all questions have been answered to her and / or her family s satisfaction. Regarding her voiding ability at the time of discharge from the hospital: [ ] Patient was able to void on her own. (*RN to remove pages 7-16*) [ ] The patient was discharged with an indwelling Ortiz catheter and will do clamping trials at home. She will need a voiding trial at the office in 1 week. (*RN to include pages 7-10,15,16 & remove pages 11-14*) [ ] The patient was discharged with an indwelling Ortiz catheter and bladder rest. She will not undergo a voiding trial unless directed by Dr. Camarillo at the first post-operative visit. (*RN to include pages 7-10,15,16 & remove pages 11-14*) [ ] Patient was taught intermittent self-catheterization. (*RN to include pages 7,8,11,15,16 & remove pages 9,10,12-14*) [ ] The patient was discharged with a suprapubic catheter. (*RN to include pages 7-10,12-16 & remove page 11*) RN Signature Date Patient or Family Member Signature Date FAX COMPLETED FORM TO: Bryce Camarillo, FAX: [phone] (Patient Sticker Here) 6 BLADDER DRAINAGE FOR THOSE PATIENTS REQUIRING A CATHETER Conversely, it may be hard for you to urinate for a few days or weeks. Sometimes, up to 30-40% of women cannot urinate efficiently after surgery due to swelling or anesthesia. This may last a few hours to a few weeks. You may be required to use a catheter in your bladder to help it drain and retrain it to work properly. One kind of catheter, called a Transurethral Ortiz Catheter, may be placed into the bladder through the urethra. This is usually reserved for large pelvic reconstructive surgeries and timely recovery. Some patients prefer to use a catheter intermittently to empty their bladder. This is called Intermittent Self-Catheterization (ISC). It is an easy technique to learn and helps to lessen the threat of urine infection. A third kind of catheter is called a Suprapubic Catheter (SPC). This catheter is placed through a small incision in the abdomen. A SPC is good for elderly patients or those whoare obese and may not be able to insert a catheter, or for complex bladder surgery requiring delayed recovery. Other tubes may help drain fluid from your incision/s. Unless instructed to maintain a catheter to drainage or to rest, you will begin plugging the end ofyour catheter with a small plastic plug in the hospital, and you will leave it plugged for set intervals of time. You will continue this upon dismissal. While your catheter is plugged, the urine willnot drain out of it, and your bladder will fill like it always has naturally. You will be sent home with a smaller day bag that straps to your leg for mobility plus a larger night bag to allow you torest all night without the need to drain the bag, and cleansing supplies. * If you have a Transurethral Ortiz Catheter, plugging of the catheter helps to wake up the bladderand increases capacity. By the time you come in for your 1st postoperative visit, 95% of patients will be ready to pass a voiding trial and have the catheter removed successfully. During daytime, tryplugging until you are comfortably full, then drain your bladder through the catheter. Your goal should be 2-4 hours of plugging between bladder emptying. You may put your catheter to drainage at night. * If you are performing Intermittent Self-Catheterization, you should attempt to urinate every houror so and then catheterize at the end of the time interval to measure how much urine is left in thebladder by emptying the catheter into the measuring hat. * If you have a Suprapubic Catheter, during the time that your catheter is plugged, you should attempt to urinate naturally every hour or so. At the end of the time interval, measure how much urine is left in the bladder by emptying the catheter into the measuring hat. 7 You will not begin progressing through the different intervals of the suprapubic plugging or catheterization routine until you are able to urinate normally through your urethra. Until this happens, you will repeat the 4 hour interval over and over. When you have started urinating normally, you willmeasure how much is left in your bladder at the end of each interval and make a decision about whether you may progress to the next time interval. Please see the respective catheterization routine pertinent to the type of catheter that you may have. Until the 12 hour interval is reached, the catheter should be hooked to the drainage bag every night to drain. After the 1st successful 24-hour interval, please call the office to update one of the nurses. Troubleshooting the Catheter It is not uncommon for the transurethral or suprapubic catheter to leak around the urethra or skin incision respectively as the bladder gets too full. If you have problems with this type of leaking, drain your bladder through the catheter. If leakage continues, reconnect your catheter to the Ortiz bag until the next morning, then restart the plugging routine. Please call the office with continuedleakage problems. Removing the Catheter The catheter is held in place inside your bladder by a water-filled balloon. Cutting the collar (next to the end of the part you ve been plugging) will cause the water inside the balloon to empty out, and the balloon will deflate. You may then remove the catheter by pulling on it gently. Things to Remember * You do not need to measure how much you urinate, ever. You need only to measure how much is left in your bladder (which gets drained from the catheter) at the end of each plugging interval. This isknown as the residual urine. You do not have to measure this residual every time you urinate normally; only at the end of the plugging interval. * You may find it easier to use the Ortiz bag at night to collect your urine. Doing this prevents you from having to get up in the night to drain your bladder. If you use the Ortiz bag, simply restart your most recent plugging interval when you wake up (for example, if you were at the 6 hour interval before bed, start at this interval routine in the morning.) * The site where a catheter is inserted into the urethra or abdomen may become pinkish, purplish, or develop a pus-like or crusty substance around it. These are your body s reactions to the catheter s presence, and are very normal. You may wash around the catheter daily with soap and water. Rinse and dry these areas well. You may shower while wearing the catheter. Maintain good personal hygiene. If this site develops a redness that spreads, or is warm and painful to the touch, please call the office immediately. * When changing from one bag to another, using a clean leg bag or Ortiz bag and an alcohol prep. Wash your hands thoroughly with soap and water and swab the end of the drainage tubing that will be attached to the Ortiz catheter. Disconnect the drainage bag from the Ortiz catheter and put the bag aside. Attach a clean bag to the catheter. Wash your hands thoroughly afterwards. * To clean the bags simply empty the urine from the bag and leave the spout open for cleaning. Mix a cup of vinegar and cup of cool water and flush the bag using a 50 mL syringe, or by submerging thebag under the mixture. Once the bag is filled, close the spout and allow the liquid to stay in the bag for 30 minutes. Drain the cleaning solution and rinse the bag again with tap water. Hang dry with the cap off and the spout open. A commercially prepared urinary appliance strainer cleaner may also be usedas instructed. * It is important that when it is time to remove the catheter, do so in the morning, because you will need to urinate every 30-60 minutes on the day that you remove it. This is to keep the bladder empty and compressed, and to allow itself to heal. This is especially important for the suprapubic incision for those with suprapubic catheters. After removing the suprapubic catheter in particular, cover the site with a Band-Aid for the 1st 24-48 hours. * Drink at least 2 quarts of liquid a day. Avoid caffeinated drinks as they may irritate the bladder and cause bladder spasms. * Please remember to call the office once a week until the catheter is removed with an update on your progress. 8 HOW TO CARE FOR YOUR ORTIZ CATHETER FEMALE About this Topic: Ortiz catheter is a thin, flexible tube that drains urine from your bladder. The catheter connects to a special bag. The bag holds the urine until you are able to empty the bag. Youmay need to have a catheter for a short time. You may need a catheter after you are sick or have had surgery. Sometimes a catheter is used for a long time. What Will the Results Be: Your urine will drain and you will prevent infection. What Care is Needed at Home? ; Ask your doctor what you need to do when you go home. Make sure you ask questions if you do not understand what the doctor says. This way you will know what you need to do. ; Your doctor may order a home health nurse to come to your house to help you learn to care for your catheter. ; Prevent infections: ; Wash your hands before and after handling your catheter. ; If you switch between a leg bag and an overnight drainage bag, be sure you clean the connection between the catheter and the bag before you switch bags. Ask your doctor what to use to clean the connection. ; Place a cap on the drainage bag you are not using and store in a clean towel. ; Rinse the empty drainage bag not in use with 1 cup vinegar mixed with 1 cup water. ; Care for the tube: ; Wash the skin around the catheter with soap and water each day. Pat the skin dry. ; Do not put anything on the tube. ; Keep the tube secure. Do not let the tube pull or catch when you are moving around during the day. ; Do not let the tube kink or loop. ; Care for the Drainage Bag: ; Keep your urine bag below your bladder. ; Drain the bag often to help keep you from getting an infection. ; Wear cotton underwear. ; What Follow-Up Care Is Needed? Your doctor may ask you to make visits to the office to check on your progress. Be sure to keep these visits. ; ; ; ; 9 ; What Lifestyle Changes are Needed? ; Drink 6-8 glasses of water every day. ; Take showers rather than soaking in a bath. ; Will Physical Activity Be Limited? ; Talk to your doctor about what you can and cannot do when the catheter is in place. ; What Problems Could Happen? ; The catheter has a balloon to hold it inside the bladder. The balloon can break or leak and the catheter can fall out. ; Urine flow stops or is blocked by kinks or bends in the tube or if the drain bag is kept higher than your bladder. ; You may see blood in the collecting tube or bag. ; Bladder infection. ; When Do I Need To Call the Doctor? ; Signs of infection like a fever of 100.4F (38C) or higher, chills, pain around the catheter, redness or swelling of the skin around the catheter. ; Urine has blood and it is dark or coffee colored, or is pus-like. ; Tube comes out or urine stops flowing. ; Burning or painful feeling in your bladder. ; You are not feeling better in 2-3 days or you are feeling worse. ; Teach Back: Helping You Understand ; The Teach Back Method helps you understand the information we are giving you. The idea is simple.After talking with the staff, tell them in your own words what you were just told. This helps to make sure the staff has covered each thing clearly. It also helps to explain things that may have lan bit confusing. Before going home, make sure you are able to do these: ; I can tell you about my condition. ; I can tell you how to prevent infection and care for the tube and bag of my Ortiz catheter. ; I can tell you what I will do if my urine stops flowing or there is a burning or painful feeling in my bladder. 10 Intermittent Self-Catheterization (ISC) Instructions After your operation, you may experience swelling around the bladder and urethra. Swelling may limit the ability to pass urine naturally through your urethra. Intermittent Self-Catheterization (ISC) will allow you to pass your urine until this swelling subsides. This technique prevents discomfort from bladder over distention. By following the simple routine below, you will be able to use ISC to empty your bladder until yournatural ability to pass urine gradually returns. You will find that as your ability to pass urine naturally improves, the need for ISC will be less. On average, a woman should expect to have use ISC from 2 to 4 weeks. You may reuse catheters by cleaning them in hot soapy water if low on supplies. 1. Attempt to pass urine naturally as often as you like. At first, do not be surprised if you cannot pass urine in very small amounts. 2. Try to void naturally immediately before each self-catheterization. 3. During the day, self-catheterize every 3 - 4 hours to ensure bladder emptying. Use your non-dominant hand to gently spread your labia and wipe your urethra with a soap wipe. Use your dominant hand to introduce the catheter into the urethra until urine flow starts and then stops. 4. Measure the residual urine drained out of the catheter at the end of each interval. Use the measuring hat. If your catheterized amount is 400 ml or more, self- catheterize more often (every 2 -3 hours). 5. Start out with a self-catheterization schedule of every 3 - 4 hours if possible. This is equivalent to self-catheterizing 6 - 8 times per day. 6. When the amount catheterized is less than 150 ml on 2 occasions, increase your catheterization interval to every 6 hours, or 4 times per day. 7. When the amount catheterized is less than 150 ml on 2 occasions, increase your catheterization interval to every 8 hours, or 3 times per day. 8. When the amount catheterized is less than 150 ml on 2 occasions, increase your catheterization interval to every 12 hours, or 2 times per day. 9. When the amount catheterized is less than 150 ml on 2 occasions, increase your catheterization interval to every 24 hours, or 1 time per day. 10. Once the amount catheterized at the 24 hour interval is less than 150 ml on 1 occasion, self-catheterization may be stopped. SPECIAL INSTRUCTIONS * Call Dr. Camarillo's office at [phone] on a weekly basis to report to Shannon on your progress. * Call Dr. Camarillo with the following problems: 1. Symptoms of a urinary infection (pain, burning, urgency, frequency, or blood). 2. Fever greater than 100.4 F on 2 occasions 4 hours apart. 3. The inability to pass urine through the catheter. 11 Suprapubic Catheter Instructions After your operation, you may experience swelling around the bladder and urethra. Swelling may limit your ability to pass urine naturally through your urethra. The suprapubic catheter (SPC) placed into your pubic hair area allows you to pass urine until swelling subsides. The SPC prevents discomfort from bladder over distention. The SPC site may be cleaned with soap and water. The SPC tucks discreetly into your underpants. By following the simple routine below, you will be able to use the SPC to empty your bladder until your natural ability to pass urine gradually returns. You will find that as your ability to pass urine naturally improves, the need to use your SPC will be less. On average, a woman should expect to have the SPC from 2 to 4 weeks. 1. Attempt to pass urine naturally as often as you like. At first, do not be surprised if you cannot pass urine in very small amounts. 2. Try to void naturally immediately before each unplugging of the SPC. 3. During the day, unplug your SPC every 3 - 4 hours to ensure bladder emptying. So you can sleep well at night, connect your SPC to the night bag. 4. Measure the residual amount drained out of the SPC at the end of each interval. Use the measuring hat. If your SPC amount is 400 cc or more, unplug more often (every 2 -3 hours). 5. Start out with an unplugging interval of every 3 - 4 hours if possible. This is equivalent to unplugging 6 - 8 times per day. 6. When the amount unplugged is less than 150 ml on 2 occasions, increase your unplugging interval to every 6 hours, or 4 times per day. 7. When the amount unplugged is less than 150 ml on 2 occasions, increase your unplugging interval to every 8 hours, or 3 times per day. At the 8 hour interval, you no longer need to connect your SPC to the night bag. 8. When the amount unplugged is less than 150 ml on 2 occasions, increase your unplugging interval to every 12 hours, or 2 times per day. 9. When the amount unplugged is less than 150 ml on 2 occasions, increase your unplugging interval to every 24 hours, or 1 time per day. 10. Once the amount unplugged at the 24 hour interval is less than 150 cc on 1 occasion, the SPC may then be removed. SPECIAL INSTRUCTIONS * Call Dr. Camarillo's office at [phone] on a weekly basis to report on your progress or to arrange for removal of the SPC. * Call Dr. Camarillo with the following problems: 1. Symptoms of a urinary infection (pain, burning, urgency, frequency, or blood). 2. Fever greater than 100.4 F on 2 occasions 4 hours apart. 3. The inability to pass urine through the SPC. 12 HOW TO CARE FOR YOUR SUPRAPUBIC URINARY CATHETER About this Topic: A suprapubic urinary catheter is a bendable rubber tube. It is put into an opening called a stoma. This is made in the lower belly wall that goes straight into the bladder. A bulb at the end of the tube sits against the bladder wall and keeps the tube from moving out of place. Thecatheter is used to drain urine from the bladder when the bladder is not working the right way or is blocked. This type of catheter may have less chance of infection. General: The skin near the stoma should be cleaned every day and checked for signs of infection. These include redness, swelling, pus, and soreness. Cleaning the Skin Near the Stoma: You may take showers, but check with your doctor about bathing, hot tubs, and swimming pools. Avoid using creams, powders or sprays near the tube site. ; Get the Things You Will Need: ; Gloves * Warm water and non-scented soap ; Clean, dry washcloth and towel * Clean gauze bandage ; Surgical tape * Plastic Trash Bag ; Wash your hands with soap and water. ; Put on clean gloves ; Hold the skin on all sides of the stoma. Gently take off the bandage. Be careful not to pull out the catheter. Throw the bandage away in the trash bag. ; Check for redness or swelling, colored or foul-smelling urine or drainage, or skin changes. Thesemay be signs of an infection. Call your doctor. ; Hold the end of the catheter tube while cleaning. ; Wash the base of the catheter and the skin near the stoma with warm soap and water. Wash away from the stoma, gently pat dry with a towel. ; Secure the catheter with a clean gauze bandage and tape. Changing the Catheter: ; Get the Things You Will Need: ; Drainage bag * Sterile gloves ; Syringe to remove water in the catheter balloon * Clean sterile gauze bandage ; Surgical tape * Plastic trash bag ; Wash your hands with soap and water before and after changing the catheter. ; Put on clean gloves. ; Take off the old bandage or dressing and throw in the trash bag. ; Clean the skin at the site. ; Remove and throw away your gloves. ; Open packages carefully before putting on sterile gloves so you do not infect yourself once gloved. Be careful not to contaminate the sterile items inside the packages, mainly the new catheter. It is very helpful to have someone help you. ; Put on sterile gloves and take care to keep things sterile at all times when working with the newcatheter. ; Fix the new catheter as you have been trained. ; Using the syringe, remove water from the old catheter bulb. ; Keep your fingers close to the site. Gently pull the catheter until it comes out. You can tell how far in the new catheter should go from the length of the catheter you took out. ; Clean the skin at the site again. 13 ; Make sure the drainage bag is attached to the new catheter. ; Gently put the new catheter in as far as the old one had been. ; Once urine begins to flow, inflate the bulb with about 8-10 mL water or the amount given on the package. If you have pain or feel resistance, withdraw the catheter a little and try again. If you cannot get the catheter in, cover the opening and call your caregiver right away. ; Secure the catheter with a new bandage. Tubing should be loose so it does not pull on the catheter. ; Throw away your gloves and any old catheter supplies. What Problems Could Happen? ; Infection * Bleeding ; Kidney damage * Bladder injury ; Bladder stones * Catheter gets displaced causing a leak or blockage When Do I Need to Call the Doctor? ; Signs of infection these include a fever of 100.4F (38C) or higher, chills, stomach pain. ; Signs of wound infection these include swelling, redness, warmth around the catheter site, too much pain when touched, yellowish/greenish or bloody discharge, foul smell coming from the site. ; Cloudy or foul smelling urine. ; Blood in urine. ; Stones or sediment in the tubing or drainage bag. ; Soreness near the tube. ; Very bad bladder pain or spasms. ; Urine leaking around the tube. ; No urine flowing into the bag; this could be a sign that the tube is clogged. ; Tubing comes out. Helpful Tips: ; To lower your chance if infection or other problems: ; Always wash your hands before and after you care for your catheter. ; Check your catheter often to be sure it is in the right position and secure to avoid leakage at the stoma. ; Keep the urine drain bag below the level of your bladder. ; Make sure to keep the tubing free of kinks so the urine flows freely. ; Avoid wearing tight-fitting clothing over the tubing that could block the flow of urine. ; Do not re-use single use drainage bags. ; Drink lots of liquids each day; avoid caffeine drinks and beer, wine, and mixed drinks (alcohol) which may bother the bladder. ; Eat lots of fiber each day to avoid hard stools. This will help to avoid a blockage and bladder pressure. 14 RECORD FOR VOIDED AND POSTVOID AMOUNTS Please record the time you void, the amount voided, and the amount left in your bladder after you empty it with your catheter. Date/Time Voided Amount Post Void Residual Amount Date/Time Voided Amount Post Void Residual Amount 15 [facility] SUPPLY LIST Please contact your local pharmacy or medical supply store regarding supplies for the type of catheter you may have. Transurethral Ortiz catheter 1 Night bag and 1 Day bag with leg strap Lubricating jelly Alcohol wipes Measuring had for toilet seat 5 50 mL syringes Self-Intermittent Catheterization Supplies: 100 #11-Slovak female catheters (hydrophilic if possible) Lubricating jelly Alcohol wipes Measuring hat for toilet seat Hand-held mirror Suprapubic catheter kit 1 Roll Transpire tape 1 inch 10 yards 1. Box of 25 drain dressings, precut, 6 pi 4 x 4 1 package catheter plugs 1. 2000 mL urinary drainage bag 1 day bag with leg strap 1 60 mL syringe catheter tip 1 Quart vinegar You may obtain the above supplies from the Pharmacy Counter at their [address] [place] [address] [place] [address] [place] [address] Store hours: Wednesday through Wednesday 9 AM to 6 PM Wednesday 9 AM to 1 PM Wednesday closed 16 documented in this encounter Assessments Diagnosis Hemorrhagic cystitis- Primary Cystitis, unspecified Diagnosis Non-intractable vomiting with nausea, unspecified vomiting type- Primary Acute urinary tract infection Urinary tract infection, site not specified Diagnosis Interstitial cystitis- Primary Chronic interstitial cystitis Diagnosis Pre-op testing- Primary Preoperative examination, unspecified Interstitial cystitis Chronic interstitial cystitis Bladder pain Other symptoms involving urinary system Diagnosis Preop testing- Primary Preoperative examination, unspecified History of Present Illness * Megan Strong RN - 07/24/2020 9:07 AM EST Urine hcg negative. * Kenny Aguayo RN - 07/18/2020 9:39 AM EST Preoperative Instructions: Stop eating solid foods at midnight the night prior to your surgery. Stop drinking clear liquids at midnight the night prior to your surgery. Arrive at the surgery center (3rd entrance) on 4-08-78 by _0800 . Please stop any blood thinning medications as directed by your surgeon or prescribing physician. Failure to stop certain medications may interfere with your scheduled surgery. These may include: Aspirin, Coumadin, Plavix, NSAIDS (Motrin, Aleve, Advil, Mobic, Celebrex), Eliquis, Pradaxa, Xarelto, Fish oil, and herbal supplements. You may continue the rest of your medications through the night before surgery unless instructed otherwise. Day of surgery please take only the following medication(s) with a small sip of water:None Please shower with antibacterial soap and water.. Reminders: -If you are going home the day of your procedure, you will need a family member or friend to stay during the procedure and drive you home after your procedure. Your ready mix truck driver must be 18 years of age or older and able to sign off on your discharge instructions. -If you are going home the same day of your surgery, someone must remain with you for the first 24 hours after your surgery if you receive sedation or anesthesia. -Please do not wear any jewelery, contacts or body piercing the day of surgery documented in this encounter Reason for Referral Referred by: PORTIA GOLDEN CNP No data available for this section No data available for this section No data available for this section No data available for this section No data available for this section No data available for this section No data available for this section No data available for this section No data available for this section No data available for this section No data available for this section No data available for this section No data available for this section No data available for this section No data available for this section No data available for this section No data available for this section No data available for this section No data available for this section No data available for this section No data available for this section No data available for this section No data available for this section No data available for this section No data available for this section No data available for this section No data available for this section No data available for this section No data available for this section No data available for this section No data available for this section No data available for this section No data available for this section No data available for this section No data available for this section No data available for this section No data available for this section No data available for this section No data available for this section No data available for this section No data available for this section No data available for this section No data available for this section No data available for this section No data available for this section No data available for this section No data available for this section No data available for this section No data available for this section No data available for this section No data available for this section No data available for this section Additional Source Comments INFORMATION SOURCE (unrecogn ized section and content) DATE CREATED AUTHOR 03/16/2019 [facility] DATE CREATED AUTHOR AUTHOR'S ORGANIZ ATION 04/16/2019 [facility] DATE CREATED AUTHOR AUTHOR'S ORGANIZ ATION 07/25/2020 [facility] DATE CREATED AUTHOR AUTHOR'S ORGANIZ ATION 07/25/2020 [facility] DATE CREATED AUTHOR AUTHOR'S ORGANIZ ATION 05/14/2021 [facility] DATE CREATED AUTHOR AUTHOR'S ORGANIZ ATION 06/09/2021 [facility] DATE CREATED AUTHOR AUTHOR'S ORGANIZ ATION 06/26/2021 [facility] DATE CREATED AUTHOR AUTHOR'S ORGANIZ ATION 09/02/2021 [facility] DATE CREATED AUTHOR AUTHOR'S ORGANIZ ATION 06/29/2024 [facility] DATE CREATED AUTHOR AUTHOR'S ORGANIZ ATION 06/30/2024 [facility] DATE CREATED AUTHOR AUTHOR'S ORGANIZ ATION 07/02/2024 [facility] DATE CREATED AUTHOR AUTHOR'S ORGANIZ ATION 08/04/2024 [facility] DATE CREATED AUTHOR AUTHOR'S ORGANIZ ATION 09/01/2024 [facility] DATE CREATED AUTHOR AUTHOR'S ORGANIZ ATION 09/02/2024 [facility] DATE CREATED AUTHOR AUTHOR'S ORGANIZ ATION 09/18/2024 [facility] DATE CREATED AUTHOR AUTHOR'S ORGANIZ ATION 09/28/2024 [facility] DATE CREATED AUTHOR AUTHOR'S ORGANIZ ATION 10/22/2024 [facility] DATE CREATED AUTHOR AUTHOR'S ORGANIZ ATION 10/23/2024 [facility] DATE CREATED AUTHOR AUTHOR'S ORGANIZ ATION 11/10/2024 [facility] DATE CREATED AUTHOR AUTHOR'S ORGANIZ ATION 11/18/2024 [facility] DATE CREATED AUTHOR AUTHOR'S ORGANIZ ATION 01/06/2025 [facility] DATE CREATED AUTHOR AUTHOR'S ORGANIZ ATION 01/27/2025 [facility] DATE CREATED AUTHOR AUTHOR'S ORGANIZ ATION 01/28/2025 [facility] DATE CREATED AUTHOR AUTHOR'S ORGANIZ ATION 01/29/2025 [facility] DATE CREATED AUTHOR AUTHOR'S ORGANIZ ATION 02/03/2025 [facility] DATE CREATED AUTHOR AUTHOR'S ORGANIZ ATION 03/08/2025 [facility] DATE CREATED AUTHOR AUTHOR'S ORGANIZ ATION 03/27/2025 [facility] DATE CREATED AUTHOR AUTHOR'S ORGANIZ ATION 04/13/2025 [facility] DATE CREATED AUTHOR AUTHOR'S ORGANIZ ATION 04/15/2025 [facility] Reason for Visit (unrecogniz ed section and content) Reason Comments Abdominal Pain RLQ Hematuria been going on few da ys, on atb however pain worse Reason Comments Flank Pain right sided, onset l ast night. Pt states she is currently being treated for a UTI Emesis started last night Reason Comments Flank Pain pt states right side d, worse today, but has been going on for the past month. PT states she has completed 3 different ATB for a UTI Status Reason Specialty Diagnoses / Procedures Re ferred By Contact Referred To Contact Diagnoses Interstitial cystitis INTERSTITIAL CYSTITIS Procedures TX CYSTOSCOPY,DIL BLADDER,GEN ANESTH CYSTOSCOPY HYDR[place] [address] [address] [facility] [address] [id number] [facility] Reason Comments Dysmenorrhea Consult Pt c/o painful perio ds, nasuea, bloating.and GI issues, back pain, leg pain, rectal pain. Pt states she struggles with daily life and activites due to sx. Pt report laparoscopy in [address] Gustabo Rosales. Reason Onset Date Comments Rx for Gabapentin & Zanaflex 02/17/2021 Reason Comments Medication Refill Reason Comments Pre-op Exam Reason Onset Date Comments Post-op Meds 05/13/2021 Reason Comments Post-op Pt presents for post op visit. She notes that she is doing very well. She notes that she is not requiring any pain medications. Reason Comments Vaginal Discharge Reason Comments Well Women Visit STI Screening Reason Comments Vaginal Symptoms Reason Comments Recurring Vaginal Issues Reason Comments Deandre Crawford 09-18-24 Clinical Records R ecv'd Reason Comments New Patient Evaluation Reason Comments Consult New Patient Reason Comments Urinary Retention Reason Comments Nurse Visit Reason Comments Patient Update Reason Comments IR Outpatient Tube Appointment Request Reason Comments Follow Up Reason Comments Established Patient Follow-Up Reason Comments suprapubic catheter Reason Comments Catheter Issue Reason Comments Radiology Pre Procedure Instructions Reason Comments Post-Op Visit Reason Comments Clinical Update Reason Comments Appointment Reason Comments Nurse Visit SPT change Ordered Prescriptions (unrec ognized section and content) Prescription Sig Dispensed Refills Start Date End Da te ondansetron (ZOFRAN ODT) 4 MG disintegrating tablet Take 1 tablet by mouth every 8 hours as needed for Nausea or Vomiting 15 tablet 0 07/24/2020 Care Teams (unrecognized sec tion and content) Vault Custodian Relationship Specialty Start Date End Date No, Physician [facility] PCP - General 12/19/20 Vault Custodian Relationship Specialty Start Date End Date No, Physician [facility] PCP - General 12/19/20 Vault Custodian Relationship Specialty Start Date End Date No, Physician [facility] PCP - General 12/19/20 Vault Custodian Relationship Specialty Start Date End Date No, Physician [facility] PCP - General 12/19/20 Vault Custodian Relationship Specialty Start Date End Date No, Physician [facility] PCP - General 12/19/20 Vault Custodian Relationship Specialty Start Date End Date No, Physician [facility] PCP - General 12/19/20 Vault Custodian Relationship Specialty Start Date End Date No, Physician [facility] PCP - General 12/19/20 Vault Custodian Relationship Specialty Start Date End Date No, Physician [facility] PCP - General 12/19/20 Vault Custodian Relationship Specialty Start Date End Date Lc Edmonds CNP [address] [place] [address] Family Medicine 10/05/24 Vault Custodian Relationship Specialty Start Date End Date Bebeto Carty APRN [address] [place] [address] PCP - General Family Medicine 11/02/24 Lc Edmonds CNP [address] [place] [address] Family Medicine 10/05/24 Vault Custodian Relationship Specialty Start Date End Date Bebeto Carty APRN [address] [place] [address] PCP - General Family Medicine 11/02/24 Lc Edmonds, LEAD MOBILE DEVELOPER [address] [place] [address] Family Medicine 10/05/24 Vault Custodian Relationship Specialty Start Date End Date Bebeto Carty APRN [address] [place] [address] PCP - General Family Medicine 11/02/24 Lc Edmonds, LEAD MOBILE DEVELOPER [address] [place] [address] Family Medicine 10/05/24 Vault Custodian Relationship Specialty Start Date End Date Bebeto Carty APRN [address] [place] [address] PCP - General Family Medicine 11/02/24 Lc Edmonds, LEAD MOBILE DEVELOPER [address] [place] [address] Family Medicine 10/05/24 Vault Custodian Relationship Specialty Start Date End Date Bebeto Carty APRN [address] [place] [address] PCP - General Family Medicine 11/02/24 Lc Edmonds, LEAD MOBILE DEVELOPER [address] [place] [address] Family Medicine 10/05/24 Vault Custodian Relationship Specialty Start Date End Date Bebeto Carty APRN [address] [place] [address] PCP - General Family Medicine 11/02/24 Lc Edmonds, SHELDON [address] [place] [address] Family Medicine 10/05/24 Vault Custodian Relationship Specialty Start Date End Date Bebeto Carty APRN [address] [place] [address] PCP - General Family Medicine 11/02/24 Lc Edmonds, SHELDON [address] [place] [address] Family Medicine 10/05/24 Vault Custodian Relationship Specialty Start Date End Date Bebeto Carty APRN [address] [place] [address] PCP - General Family Medicine 11/02/24 Lc Edmonds, LEAD MOBILE DEVELOPER [address] [place] [address] Family Medicine 10/05/24 Vault Custodian Relationship Specialty Start Date End Date Bebeto Carty APRN [address] [place] [address] PCP - General Family Medicine 11/02/24 Lc Edmonds, LEAD MOBILE DEVELOPER [address] [place] [address] Family Medicine 10/05/24 Vault Custodian Relationship Specialty Start Date End Date Bebeto Carty APRN [address] [place] [address] PCP - General Family Medicine 11/02/24 Lc Edmonds, LEAD MOBILE DEVELOPER [address] [place] [address] Family Medicine 10/05/24 Vault Custodian Relationship Specialty Start Date End Date Bebeto Carty APRN [address] [place] [address] PCP - General Family Medicine 11/02/24 Lc Edmonds, LEAD MOBILE DEVELOPER [address] [place] [address] Family Medicine 10/05/24 Vault Custodian Relationship Specialty Start Date End Date Bebeto Carty APRN [address] [place] [address] PCP - General Family Medicine 11/02/24 Lc Edmonds, LEAD MOBILE DEVELOPER [address] [place] [address] Family Medicine 10/05/24 Vault Custodian Relationship Specialty Start Date End Date Bebeto Carty APRN [address] [place] [address] PCP - General Family Medicine 11/02/24 Lc Edmonds, LEAD MOBILE DEVELOPER [address] [place] [address] Family Medicine 10/05/24 Vault Custodian Relationship Specialty Start Date End Date Bebeto Carty APRN [address] [place] [address] PCP - General Family Medicine 11/02/24 Lc Edmonds, LEAD MOBILE DEVELOPER [address] [place] [address] Family Medicine 10/05/24 Vault Custodian Relationship Specialty Start Date End Date Bebeto Carty APRN [address] [place] [address] PCP - General Family Medicine 11/02/24 Lc Edmonds, SHELDON [address] [place] [address] Family Medicine 10/05/24 Vault Custodian Relationship Specialty Start Date End Date Bebeto Carty APRN [address] [place] [address] PCP - General Family Medicine 11/02/24 Lc Edmonds, SHELDON [address] [place] [address] Family Medicine 10/05/24 Vault Custodian Relationship Specialty Start Date End Date Bebeto Carty APRN [address] [place] [address] PCP - General Family Medicine 11/02/24 Lc Edmonds, SHELDON [address] [place] [address] Family Medicine 10/05/24 Source Comments (unrecognize d section and content) In the event this informatio n is protected by the Federal Confidentiality of Alcohol and Drug Abuse Patient Records regulations: The Federal rules restrict any use of the information to criminally investigate or prosecute any alcohol or drug abuse patient.[facility] the event this information is protected by the Federal Confidentiality of Alcohol and Drug Abuse Patient Records regulations: The Federal rules restrict any use of the information to criminally investigate or prosecute any alcohol or drug abuse patient.[facility] the event this information is protected by the Federal Confidentiality of Alcohol and Drug Abuse Patient Records regulations: The Federal rules restrict any use of the information to criminally investigate or prosecute any alcohol or drug abuse patient.[facility] the event this information is protected by the Federal Confidentiality of Alcohol and Drug Abuse Patient Records regulations: The Federal rules restrict any use of the information to criminally investigate or prosecute any alcohol or drug abuse patient.[facility] the event this information is protected by the Federal Confidentiality of Alcohol and Drug Abuse Patient Records regulations: The Federal rules restrict any use of the information to criminally investigate or prosecute any alcohol or drug abuse patient.[facility] the event this information is protected by the Federal Confidentiality of Alcohol and Drug Abuse Patient Records regulations: The Federal rules restrict any use of the information to criminally investigate or prosecute any alcohol or drug abuse patient.[facility] the event this information is protected by the Federal Confidentiality of Alcohol and Drug Abuse Patient Records regulations: The Federal rules restrict any use of the information to criminally investigate or prosecute any alcohol or drug abuse patient.[facility] the event this information is protected by the Federal Confidentiality of Alcohol and Drug Abuse Patient Records regulations: The Federal rules restrict any use of the information to criminally investigate or prosecute any alcohol or drug abuse patient.[facility] the event this information is protected by the Federal Confidentiality of Alcohol and Drug Abuse Patient Records regulations: The Federal rules restrict any use of the information to criminally investigate or prosecute any alcohol or drug abuse patient.[facility] the event this information is protected by the Federal Confidentiality of Alcohol and Drug Abuse Patient Records regulations: The Federal rules restrict any use of the information to criminally investigate or prosecute any alcohol or drug abuse patient.[facility] the event this information is protected by the Federal Confidentiality of Alcohol and Drug Abuse Patient Records regulations: The Federal rules restrict any use of the information to criminally investigate or prosecute any alcohol or drug abuse patient.[facility] Hospital[facility] the event this information is protected by the Federal Confidentiality of Alcohol and Drug Abuse Patient Records regulations: The Federal rules restrict any use of the information to criminally investigate or prosecute any alcohol or drug abuse patient.[facility] Hospital[facility] the event this information is protected by the Federal Confidentiality of Alcohol and Drug Abuse Patient Records regulations: The Federal rules restrict any use of the information to criminally investigate or prosecute any alcohol or drug abuse patient.[facility] HospitalIn the event this information is protected by the Federal Confidentiality of Alcohol and Drug Abuse Patient Records regulations: The Federal rules restrict any use of the information to criminally investigate or prosecute any alcohol or drug abuse patient.[facility]In the event this information is protected by the Federal Confidentiality of Alcohol and Drug Abuse Patient Records regulations: The Federal rules restrict any use of the information to criminally investigate or prosecute any alcohol or drug abuse patient.[facility]In the event this information is protected by the Federal Confidentiality of Alcohol and Drug Abuse Patient Records regulations: The Federal rules restrict any use of the information to criminally investigate or prosecute any alcohol or drug abuse patient.[facility]In the event this information is protected by the Federal Confidentiality of Alcohol and Drug Abuse Patient Records regulations: The Federal rules restrict any use of the information to criminally investigate or prosecute any alcohol or drug abuse patient.[facility]In the event this information is protected by the Federal Confidentiality of Alcohol and Drug Abuse Patient Records regulations: The Federal rules restrict any use of the information to criminally investigate or prosecute any alcohol or drug abuse patient.[facility]In the event this information is protected by the Federal Confidentiality of Alcohol and Drug Abuse Patient Records regulations: The Federal rules restrict any use of the information to criminally investigate or prosecute any alcohol or drug abuse patient.[facility]In the event this information is protected by the Federal Confidentiality of Alcohol and Drug Abuse Patient Records regulations: The Federal rules restrict any use of the information to criminally investigate or prosecute any alcohol or drug abuse patient.[facility]In the event this information is protected by the Federal Confidentiality of Alcohol and Drug Abuse Patient Records regulations: The Federal rules restrict any use of the information to criminally investigate or prosecute any alcohol or drug abuse patient.[facility]In the event this information is protected by the Federal Confidentiality of Alcohol and Drug Abuse Patient Records regulations: The Federal rules restrict any use of the information to criminally investigate or prosecute any alcohol or drug abuse patient.[facility] HospitalIn the event this information is protected by the Federal Confidentiality of Alcohol and Drug Abuse Patient Records regulations: The Federal rules restrict any use of the information to criminally investigate or prosecute any alcohol or drug abuse patient.[facility]In the event this information is protected by the Federal Confidentiality of Alcohol and Drug Abuse Patient Records regulations: The Federal rules restrict any use of the information to criminally investigate or prosecute any alcohol or drug abuse patient.[facility] HospitalIn the event this information is protected by the Federal Confidentiality of Alcohol and Drug Abuse Patient Records regulations: The Federal rules restrict any use of the information to criminally investigate or prosecute any alcohol or drug abuse patient.[facility] HospitalIn the event this information is protected by the Federal Confidentiality of Alcohol and Drug Abuse Patient Records regulations: The Federal rules restrict any use of the information to criminally investigate or prosecute any alcohol or drug abuse patient.[facility] HospitalIn the event this information is protected by the Federal Confidentiality of Alcohol and Drug Abuse Patient Records regulations: The Federal rules restrict any use of the information to criminally investigate or prosecute any alcohol or drug abuse patient.[facility] HospitalIn the event this information is protected by the Federal Confidentiality of Alcohol and Drug Abuse Patient Records regulations: The Federal rules restrict any use of the information to criminally investigate or prosecute any alcohol or drug abuse patient.[facility] HospitalIn the event this information is protected by the Federal Confidentiality of Alcohol and Drug Abuse Patient Records regulations: The Federal rules restrict any use of the information to criminally investigate or prosecute any alcohol or drug abuse patient.[facility] FOR RECORDS PERTAINING TO PATIENTS WHO ARE OR HAVE BEEN ENROLLED IN A CHEMICAL DEPENDENCY/SUBSTANCEABUSE PROGRAM, SOME INFORMATION MAY BE OMITTED. This clinical summary was aggregated from multiple sources. Caution should be exercised in using it in the provision of clinical care. This summary normalizes information from multiple sources, and as a consequence, information in this document may materially change the coding, format and clinical context of patient data. In addition, data may be omitted in some cases. CLINICAL DECISIONS SHOULD BE BASED ON THE PRIMARY CLINICAL RECORDS. [facility] [employer] [facility]. provides no warranty or guarantee of the accuracy or completeness of information in this document.
== END 2025-04-18 19:34 | disposition home or self-care (01) ==
LOC: LAB 19:33
PROVIDERS: Visit Provider Obstetrics & Gynecology
DX: Z01.419 Encounter for gynecological examination (general) (routine) without abnormal findings (principal); Z90.710 Acquired absence of both cervix and uterus
CPT/HCPCS: 88175